=== PATIENT | male | born 1935 | race Caucasian/White ===

== ENCOUNTER → 2016-07-26 | Outpatient (CLI) | payer OTHER, MEDICARE ==
[2015-07-28 12:52] VITALS: BP 186/73; PULSE 55
[~2016-07-26] MED LIST: ALLO1TAB51 PO; AMLO10TA2 PO; ASPEC81 PO; BRIM0.2S OPB; CLON0.2T11 PO; CLR10 PO; METO50TA16 PO; PRAV20TA PO
[2016-07-26 13:16] VITALS: BP_SYST 187; BP_SYST 203; BP_DIAS 76; BP_DIAS 84; PULSE 56; TEMP 36.3; O2SAT 97
--- NOTE | 2016-07-26 16:48 | Radiation Oncology Follow-Up ---
Radiation Oncology Follow-Up Date of Visit Jul 26, 2016. Reason For Visit Annual follow-up Radiation Completion Date 12/23/13 Diagnosis (1) Squamous cell cancer of retromolar trigone Status: Resolved Onset Date: 09/23/2013 Stage: l Permanent Comment: Discomfort of the left retromalleolar area Ulcerated lesion biopsy positive for moderately differentiated squamous cell carcinoma Status post PET/CT with no metastatic disease Status post completion of definitive radiation therapy 12/23/2013 received 7000 cGy Last Edited By: Sarah Dallas on Jul 28, 2015 14:50 Interim History He is been doing well over this past year. He is noted no discomfort in his mouth. He states there is 1 area on the lateral side of the tongue has decreased sensation. He has noted no masses. There is no discomfort with opening and closing the mouth. He has noted no enlarging lymph nodes of the neck. His appetite is good and weight is stable. He was admitted for a 2 day stay in March 17 the flu. He also had high blood pressure and sinus difficulty at that time. These issues resolved without difficulty. He recently lost his after a 15 month illness. He did have a follow-up appointment with ENT one year ago and was found to have no recurrence. He was not given any further follow-up appointments. Allergies Coded Allergies: Clozapine (Verified Allergy, Unknown, unknown, 05/15/15) Haloperidol (Verified Allergy, Unknown, unknown, 05/15/15) Metoclopramide (Verified Allergy, Unknown, `, 05/15/15) Phenothiazines (Verified Allergy, Unknown, unkonwn, 05/15/15) Home Medications Scheduled Allopurinol (Allopurinol), 1 TAB PO DAILY Amlodipine Besylate (Norvasc), 1 TAB PO DAILY Aspirin Enteric Coated (Ecotrin Or Generic *), 81 MG PO DAILY Brimonidine Tartrate-Timolol M (Combigan), 1 DROP OPB BID Clonidine Hcl (Catapres), 0.2 MG PO BID Loratadine (Claritin), 10 MG PO DAILY Metoprolol Tartrate (Lopressor) (Lopressor), 50 MG PO BID Pravastatin (Pravachol ), 80 MG PO DAILY Review of Systems Gastrointestinal: Symptoms: WNL Oral: Symptoms: No Problems Respiratory: Symptoms: WNL Urinary: Symptoms: WNL Skin: Symptoms: No Problems Physical Exam Vital Signs Date Time Temp Pulse Resp B/P Pulse Ox O2 Delivery O2 Flow Rate FiO2 07/26/16 13:16 36.3 56 16 203/84 97 187/76 Pain: Pain Location: None Patient Pain Scale: 0 - 10 Initial Pain Intensity: 0.0 Fatigue: None General Appearance: no apparent distress Eyes: normal inspection, EOMI ENT: normal ENT inspection, hearing grossly normal, pharynx normal, + pertinent finding (mouth reveals no masses of the retromalleolar area on the left. There are no changes of buccal mucosa. There are no palpable masses of the retromalleolar area, floor the mouth, or tongue. There are no visible masses of the soft hard palate.) Neck: no adenopathy, thyroid normal Respiratory/Chest: lungs clear, no respiratory distress, no accessory muscle use Cardiovascular: regular rate, rhythm, no gallop, no murmur Extremities: no pedal edema Neurologic/Psychiatric: no motor/sensory deficits, alert, normal mood/affect Skin: warm/dry Lymphatic: no adenopathy Assessment & Plan Plan: He did have a TSH as part of his evaluation in April when he was to the hospital. This was normal. He had carotid Dopplers last year. There was no change in the percentage of stenosis. He'll not have to have this repeated of this year. We discussed his whitecoat syndrome. He checks his blood pressure at home on a regular basis. His blood pressure at home was 114/54 today. We asked him to return to our office in 1 year. Continue regular follow -up with Dr. Lopes. He may call our office if he has any questions or concerns in the interim. Total Time In Follow-Up I spent 20 minutes speaking to the patient and performing examination. I spent 15 minutes reviewing information completing this note. Copy To Hieu Lopes M.D.
== END | disposition home or self-care (01) ==
LOC: C.ONC 13:07
PROVIDERS: ATTEND Physician Assistant Medical
DX: Z08 Encounter for follow-up examination after completed treatment for malignant neoplasm (principal); Z92.3 Personal history of irradiation; Z85.89 Personal history of malignant neoplasm of other organs and systems

== ENCOUNTER → 2016-10-20 | Outpatient (CLI) | payer OTHER, MEDICARE ==
[2016-10-20 12:37] LABS: ALT/SGPT 24 U/L (12-78); AST/SGOT 16 U/L (15-37); BLOOD UREA NITROGEN 20 mg/dl (7-18); BUN/CREATININE RATIO 13.6 (10-20); CALCIUM 9.3 mg/dl (8.5-10.1); CARBON DIOXIDE 25 mmol/L (21-32); CHLORIDE 106 mmol/L (98-107); GLUCOSE 100 mg/dl (70-99); POTASSIUM 4.6 mmol/L (3.5-5.1); SODIUM 143 mmol/L (136-145)
[2016-10-20 12:42] LABS: ALB/GLOB RATIO 1.1 (0.9-2); ALKALINE PHOSPHATASE 62 U/L (45-117); CHOLESTEROL 153 mg/dl (0-200); CHOLESTEROL/HDL RATIO 4.6; HDL CHOLESTEROL 33 mg/dl; LDL CHOLESTEROL CALCULATED 79 mg/dl; TRIGLYCERIDES 204 mg/dl (0-150); VERY LOW DENSITY LIPOPROT CALC 41 mg/dl
== END | disposition home or self-care (01) ==
LOC: C.LABBFT 08:17
PROVIDERS: ATTEND Nurse Practitioner
DX: N40.0 Benign prostatic hyperplasia without lower urinary tract symptoms (principal); I10 Essential (primary) hypertension; E78.5 Hyperlipidemia, unspecified

== ENCOUNTER → 2017-04-23 | Outpatient (CLI) | payer OTHER, MEDICARE ==
[2017-04-23 12:18] LABS: BASO % 0.3 %; BASO ABS # 0.02 K/uL (0-0.2); COMPLETE YES; EOS % 4.6 %; HEMATOCRIT 38.9 % (42-52); IG% 0.3 %; LYMPH % 21.5 %; LYMPH ABS # 1.45 K/uL (1.2-3.4); MEAN CELL VOLUME 92.6 fL (80-100); MEAN CORPUSCULAR HEMOGLOBIN 32.9 pg (25-34); MEAN CORPUSCULAR HGB CONC 35.5 g/dl (32-36); MEAN PLATELET VOLUME 10.7 fL (7.4-10.4); MONO % 12.3 %; PLATELET COUNT 205 K/uL (130-400); WHITE BLOOD COUNT 6.74 K/uL (4.8-10.8)
[2017-04-23 12:28] LABS: ALT/SGPT 23 U/L (12-78); AST/SGOT 17 U/L (15-37); BLOOD UREA NITROGEN 21 mg/dl (7-18); BUN/CREATININE RATIO 12.5 (10-20); CALCIUM 9.3 mg/dl (8.5-10.1); CARBON DIOXIDE 28 mmol/L (21-32); CHLORIDE 105 mmol/L (98-107); CHOLESTEROL 150 mg/dl (0-200); CREATININE 1.71 mg/dl (0.60-1.40); GLUCOSE 110 mg/dl (70-99); POTASSIUM 4.3 mmol/L (3.5-5.1); SODIUM 139 mmol/L (136-145); TRIGLYCERIDES 203 mg/dl (0-150); URIC ACID 7.3 mg/dl (2.6-7.2); VERY LOW DENSITY LIPOPROT CALC 41 mg/dl
[2017-04-23 12:31] LABS: ALB/GLOB RATIO 1.1 (0.9-2); ALKALINE PHOSPHATASE 63 U/L (45-117); CHOLESTEROL/HDL RATIO 4.1; HDL CHOLESTEROL 37 mg/dl; LDL CHOLESTEROL CALCULATED 72 mg/dl
[2017-04-23 12:36] LABS: ESTIMATED AVERAGE GLUCOSE 120 mg/dl; HA1C FLAG Normal (Normal)
== END | disposition home or self-care (01) ==
LOC: C.LABBFT 08:30
PROVIDERS: ATTEND Physician Assistant Medical
DX: M10.9 Gout, unspecified (principal)

== ENCOUNTER → 2017-07-31 | Outpatient (CLI) | payer OTHER, MEDICARE ==
[2015-07-28 12:52] VITALS: BP 186/73; PULSE 55
[~2017-07-31] MED LIST changes: +MULT-506 PO; +NUTR-977 PO
[2017-07-31 13:19] VITALS: BP_SYST 205; BP_SYST 212; BP_DIAS 73; BP_DIAS 90; PULSE 56; TEMP 36.3; O2SAT 94
--- NOTE | 2017-07-31 16:03 | Radiation Oncology Follow-Up ---
Radiation Oncology Follow-Up Date of Visit Jul 31, 2017. Reason For Visit Annual follow-up Radiation Completion Date 12/23/13 Diagnosis (1) Squamous cell cancer of retromolar trigone Status: Resolved Onset Date: 09/23/2013 Stage: l Permanent Comment: Discomfort of the left retromalleolar area Ulcerated lesion biopsy positive for moderately differentiated squamous cell carcinoma Status post PET/CT with no metastatic disease Status post completion of definitive radiation therapy 12/23/2013 received 7000 cGy Last Edited By: Sarah Dallas on Jul 28, 2015 14:50 Interim History He has been doing well over the past year. He has noted no changes to the left lower gumline. He has noted no masses or tenderness. He has no issues with trismus. His sensation of taste is nearly normal. He is noticed no changes to the neck. His appetite is good and weight is stable. He is edentulous. Allergies Coded Allergies: Clozapine (Verified Allergy, Unknown, unknown, 05/15/15) Haloperidol (Verified Allergy, Unknown, unknown, 05/15/15) Metoclopramide (Verified Allergy, Unknown, `, 05/15/15) Phenothiazines (Verified Allergy, Unknown, unkonwn, 05/15/15) Home Medications Scheduled Allopurinol (Allopurinol), 1 TAB PO DAILY Amlodipine Besylate (Norvasc), 1 TAB PO DAILY Aspirin Enteric Coated (Ecotrin Or Generic *), 81 MG PO DAILY Brimonidine Tartrate-Timolol M (Combigan), 1 DROP OPB BID Clonidine Hcl (Catapres), 0.2 MG PO BID Enteral Nutrition Formula (Ensure Plus Vanilla), 1 CAN PO DAILY Loratadine (Claritin), 10 MG PO DAILY Metoprolol Tartrate (Lopressor) (Lopressor), 50 MG PO BID Multivitamin (Multivitamin), 1 TAB PO DAILY Pravastatin (Pravachol ), 80 MG PO DAILY Review of Systems Gastrointestinal: Symptoms: Constipation GI Comments: Constipation manageable at home; Oral: Symptoms: No Problems Respiratory: Symptoms: SOB With Exertion Other Respiratory: SOB w/exertion that he relates to his weight gain and COPD Urinary: Symptoms: WNL Skin: Symptoms: No Problems Physical Exam Vital Signs Date Time Temp Pulse Resp B/P (MAP) Pulse Ox O2 Delivery O2 Flow Rate FiO2 07/31/17 13:19 36.3 56 16 205/73 94 212/90 Fatigue: None General Appearance: no apparent distress Eyes: normal inspection, EOMI ENT: normal ENT inspection, hearing grossly normal, pharynx normal, + pertinent finding (Edentulous. Examination of the retromalleolar area on the left reveals no masses. There is no tenderness. There are no visible or palpable masses of the buccal mucosa, floor of the mouth, or tongue. There are no abnormalities seen of the soft or hard palate. Normal inspection of the posterior pharynx.) Neck: supple, no adenopathy, no JVD Respiratory/Chest: lungs clear, no respiratory distress, no accessory muscle use Cardiovascular: regular rate, rhythm, no gallop, no murmur Extremities: no pedal edema Neurologic/Psychiatric: no motor/sensory deficits, alert, normal mood/affect Skin: warm/dry Pain Management Patient Reports Pain: No Pain Location: None Patient Preferred Pain Scale: 0 - 10 Initial Pain Intensity: 0.0 Pain Management Plan He denies pain therefore requires no pain management. Laboratory Laboratory Results: were reviewed, and pertinent findings noted below Laboratory Comments: Test 07/31/17 14:03 Thyroid Stimulating Hormone (TSH) 1.370 uIu/ml (0.300-4.500) Pathology Pathology Results: not applicable Imaging Imaging Studies: not applicable Assessment & Plan Plan: Patient will be notified as the results of the TSH drawn today. We discussed follow-up carotid Dopplers. The last review was 2 years ago. These were ordered. He will continue regular follow-up with Dr. Lopes. We discussed the white coat syndrome once again. This occurred last year. He brought with him a recording of his blood pressure taken today at home. This was 128/84. We asked him to return to our office in 1 year. He may call if he has any questions or concerns in the interim. Total Time In Follow-Up I spent 20 minutes speaking to the patient in performing examination. I spent 15 minutes reviewing information and completing this note. Copy To Hieu Lopes M.D.
== END | disposition home or self-care (01) ==
LOC: C.ONC 13:10
PROVIDERS: ATTEND Physician Assistant Medical
DX: Z08 Encounter for follow-up examination after completed treatment for malignant neoplasm (principal); Z92.3 Personal history of irradiation; Z85.89 Personal history of malignant neoplasm of other organs and systems

== ENCOUNTER → 2017-08-02 | Outpatient (CLI) | payer OTHER, MEDICARE ==
--- NOTE | 2017-08-02 13:19 | DIAGNOSTIC IMAGING REPORT ---
CAROTID DOPPLER NECK ART CLINICAL HISTORY: 81 years-old Male presenting with ORAL CAVITY CA, atherosclerosis with history of bilateral internal carotid artery narrowing. TECHNIQUE: Real-time grayscale and color and spectral Doppler ultrasound imaging of the bilateral carotid arteries was performed. NASCET criteria was used in evaluating this study. COMPARISON: 08/02/2015. FINDINGS: Right: Common carotid: Atherosclerosis. Peak systolic velocity 70 cm/s. Internal carotid artery: Atherosclerosis of the proximal ICA. Peak systolic velocity 155 cm/s. Systolic ratio: 2.2. External carotid artery: Atherosclerosis. Peak systolic velocity 75 cm/s. Left: Common carotid: Atherosclerosis. Peak systolic velocity 80 cm/s. Internal carotid artery: Atherosclerosis of the proximal ICA. Peak systolic velocity 116 cm/s. Systolic ratio: 1.5. External carotid artery: Atherosclerosis. Peak systolic velocity 106 cm/s. Bilateral antegrade flow within the vertebral arteries. Reference ranges: Stenosis measurements are compared to reference velocity parameters. Primary parameters: ICA peak systolic velocity (PSV) < 125 cm/s normal or indicating < 50% stenosis; ICA PSV 125-230 cm/s equivalent to 50-69% stenosis; ICA PSV > 230 cm/s equivalent to greater than or equal to 70% stenosis. Additional parameters: ICA PSV to common carotid artery PSV ratio < 2 normal or < 50% stenosis; 2-4 equates to 50-69% stenosis, > 4 equates to greater than or equal to 70% stenosis. Normal ICA end-diastolic velocity less than 40. Blood pressure Brachial: Right: 211/86 mmHg, Left: 213/93 mmHg. IMPRESSION: 1. Severe systemic hypertension. 2. Atherosclerosis with 50-69% stenosis of the proximal right ICA. 3. Atherosclerosis with less than 50% stenosis of the proximal left ICA. The report will be called/faxed according to standard departmental protocol. Electronically signed by: Christophe Sarmiento M.D. 08/02/2017 1:18 PM Dictated Date/Time: 08/02/2017 1:12 PM
== END | disposition home or self-care (01) ==
LOC: C.ULTR 12:09
PROVIDERS: ATTEND Physician Assistant Medical
DX: C06.2 Malignant neoplasm of retromolar area (principal); I10 Essential (primary) hypertension; I65.23 Occlusion and stenosis of bilateral carotid arteries

== ENCOUNTER → 2017-08-29 | Outpatient (CLI) | payer OTHER, MEDICARE ==
[2017-08-29 15:46] LABS: BASO % 0.3 %; BASO ABS # 0.02 K/uL (0-0.2); EOS % 4.5 %; EOS ABS # 0.31 K/uL (0-0.5); HEMATOCRIT 41.4 % (42-52); HEMOGLOBIN 14.5 g/dL (14.0-18.0); IG# 0.01 K/uL (0.00-0.02); LYMPH % 27.7 %; LYMPH ABS # 1.89 K/uL (1.2-3.4); MEAN CELL VOLUME 91.2 fL (80-100); MEAN CORPUSCULAR HEMOGLOBIN 31.9 pg (25-34); MEAN PLATELET VOLUME 10.4 fL (7.4-10.4); MONO % 14.2 %; MONO ABS # 0.97 K/uL (0.11-0.59); NEUT % 53.2 %; NEUT ABS # 3.63 K/uL (1.4-6.5); PLATELET COUNT 223 K/uL (130-400); WHITE BLOOD COUNT 6.83 K/uL (4.8-10.8)
[2017-08-29 16:04] LABS: ALT/SGPT 22 U/L (12-78); AST/SGOT 18 U/L (15-37); BLOOD UREA NITROGEN 18 mg/dl (7-18); CALCIUM 9.4 mg/dl (8.5-10.1); CARBON DIOXIDE 29 mmol/L (21-32); CREATININE 1.44 mg/dl (0.60-1.40); GLUCOSE 81 mg/dl (70-99); POTASSIUM 4.1 mmol/L (3.5-5.1); SODIUM 140 mmol/L (136-145)
[2017-08-29 16:15] LABS: ALKALINE PHOSPHATASE 69 U/L (45-117); TOTAL PROTEIN 7.3 gm/dl (6.4-8.2)
--- NOTE | 2017-09-07 06:50 | CODING QUERY NO DIAGNOSIS ---
: 1935 TREATMENT RENDERED WITHOUT A DIAGNOSIS To promote full compliance with coding requirements relating to patient care, physician participation is requested in all cases of curriculum and assessment director uncertainty. Please assist us with providing a diagnosis/symptom for the test(s) below: A diagnosis/symptom was not documented on your Order. A valid diagnosis/symptom is required to bill all insurances. Please remember that we are unable to code a diagnosis of rule out, probable, possible, questionable, or suspected. Tests that require a diagnosis: DOS: 08/29/17 * CBC WITH AUTO DIFFERENTIAL DIAGNOSIS: * COMPREHENSIVE METABOLIC PANEL DIAGNOSIS: * THYROID STIMULATING HORMONE DIAGNOSIS: * LDH DIAGNOSIS: Provider Signature: Date: Thank you Jodie Nicholson Health Information Management Once completed, please kindly fax back to [phone] For questions please call [phone]
== END | disposition home or self-care (01) ==
LOC: C.LAB 14:31
PROVIDERS: ATTEND Nurse Practitioner Family
DX: Z85.818 Personal history of malignant neoplasm of other sites of lip, oral cavity, and pharynx (principal); Z92.3 Personal history of irradiation

== ENCOUNTER → 2017-11-30 | Outpatient (CLI) | payer OTHER, MEDICARE ==
--- NOTE | 2017-11-30 18:49 | DIAGNOSTIC IMAGING REPORT ---
LUMBAR SPINE 5 VIEWS HISTORY: M54.5 Low back pain [id number] COMPARISON: None. FINDINGS: There is no fracture. No subluxation. Mild dextroscoliosis which could be positional. Moderate to severe facet degenerative changes within the lower lumbar spine. L5 appears to be a transitional vertebra. Mild disc space narrowing at L1-L2, L2-L3, and L4-L5. Small endplate osteophytes throughout the lumbar spine. IMPRESSION: No fracture or subluxation within the lumbar spine. Degenerative changes as described above. Electronically signed by: Hebert Dickson M.D. 11/30/2017 6:48 PM Dictated Date/Time: 11/30/2017 6:45 PM
== END | disposition home or self-care (01) ==
LOC: C.RAD 16:11
PROVIDERS: ATTEND Internal Medicine
DX: M54.5 Low back pain (principal)

== ENCOUNTER 2017-12-14 21:17 | Inpatient (IN) | payer OTHER, MEDICARE ==
[~2017-12-14] VITALS: Ht 167.6 cm; Wt 68.8 kg
[2017-12-14] MEDS ORDERED: SODIUM CHLORIDE 0.9% 1000ML 1,000 ML IV STA (22:01)
[2017-12-14] MEDS ORDERED: SODIUM CHLORIDE 0.9% 1000ML 1,000 ML IV ONE (22:01)
[2017-12-14] MEDS ORDERED: CLONIDINE HCL 0.1 MG TAB PO ONE (22:15)
--- NOTE | 2017-12-14 22:19 | DIAGNOSTIC IMAGING REPORT ---
CHEST ONE VIEW PORTABLE CLINICAL HISTORY: CHEST PAIN dyspnea COMPARISON STUDY: 04/08/2016 FINDINGS: Minimal chronic atelectasis left base. Lungs otherwise are clear. No significant cardiac enlargement. IMPRESSION: Chronic change. No acute process. The above report was generated using voice recognition software. It may contain grammatical, syntax or spelling errors. Electronically signed by: Jaylan Clay M.D. 12/14/2017 10:18 PM Dictated Date/Time: 12/14/2017 10:17 PM
--- NOTE | 2017-12-14 22:28 | EMERGENCY ROOM VISIT NOTE ---
History First contact with patient: 21:56 Chief Complaint: FALL Stated Complaint: FALL, AMS History of Present Illness History is obtained from the patient as well as his family members who are at the bedside the patient is a 82 year old male who presents to the Emergency Room with complaints of altered mental status. He saw his doctor yesterday has been having chronic issues with low back pain was started on a pain medication as well as a muscle relaxer. His family said he slept in bed all day yesterday and today when they found him. He had not taken any of his medication he was sleepy and when he fell fell over and hit his head as well. Upon arrival he appears in no distress he is alert to person and place but not date that is atypical for him he does follow commands and has not nonslurred speech. He denies chest pain, shortness breath, fever or chills, bowel or bladder problems , recent illness, headache. Source of History: patient, family Review of Systems As above. All other systems reviewed were negative unless otherwise stated in history. At least 10 were reviewed Past Medical/Surgical History Medical Problems: (1) Benign prostatic hypertrophy (2) COPD exacerbation (3) Encephalopathy acute (4) Glaucoma (5) Hypercholesterolemia (6) Hypertension (7) Peripheral vascular disease (8) Squamous cell cancer of retromolar trigone (9) Troponin I above reference range Surgical Problems: (1) H/O aorto-femoral bypass (2) H/O transurethral resection of prostate (3) Status post cataract surgery Old medical records were reviewed. Nurse's notes were reviewed and I agree with. Social History Smoking Status: Never Smoker Drug Use: none Marital Status: Housing Status: lives with family Occupation Status: retired Current/Historical Medications Scheduled Allopurinol (Allopurinol), 1 TAB PO DAILY Amlodipine Besylate (Norvasc), 1 TAB PO DAILY Aspirin Enteric Coated (Ecotrin Or Generic *), 81 MG PO DAILY Brimonidine Tartrate-Timolol M (Combigan), 1 DROP OPB BID Clonidine Hcl (Catapres), 0.2 MG PO BID Enteral Nutrition Formula (Ensure Plus Vanilla), 1 CAN PO DAILY Loratadine (Claritin), 10 MG PO DAILY Metoprolol Tartrate (Lopressor) (Lopressor), 50 MG PO BID Multivitamin (Multivitamin), 1 TAB PO DAILY Pravastatin (Pravachol ), 80 MG PO DAILY Physical Exam Vital Signs Date Time Temp Pulse Resp B/P (MAP) Pulse Ox O2 Delivery O2 Flow Rate FiO2 12/14/17 23:46 76 18 202/90 93 Room Air 12/14/17 23:19 82 18 213/91 93 Room Air 12/14/17 22:26 82 18 208/126 92 Room Air 12/14/17 21:31 91 12/14/17 21:17 36.9 88 18 278/124 95 Room Air Physical Exam General: Well developed well nourished older male who is awake and alert and oriented 2 in no acute distress, breathing comfortably on room air. Normal speech HEENT: Normal cephalic atraumatic with exception of a small abrasion to the central scalp. Pupils are equal round and reactive to light. Extraocular movements are intact. Oropharynx is pink with moist mucous membranes. No swelling of the mouth lips or tongue. Neck: Supple with a midline trachea. No meningeal signs or stiffness, no JVD or bruits. No Stridor. Chest: Clear to auscultation bilaterally. No wheezes or rhonchi. No increased work of breathing. Heart: Regular rate and rhythm without murmurs or gallops. Abdomen: Soft nontender, nondistended without rebound guarding or rigidity. Extremities: No cyanosis clubbing or edema. No calf tenderness or assymetry Spine/Back. Non tender to palpation. No CVA tenderness Skin: Good turgor without rashes. Neurologic exam: Cranial nerves two through 12 are intact. Motor and sensation are intact and symmetrical throughout. Medical Decision & Procedures Laboratory Results 12/14/17 21:30 Red Blood Count 4.77, Mean Corpuscular Volume 91.2, Mean Corpuscular Hemoglobin 32.5, Mean Corpuscular Hemoglobin Concent 35.6, Mean Platelet Volume 10.7, Neutrophils (%) (Auto) 69.8, Lymphocytes (%) (Auto) 16.1, Monocytes (%) (Auto) 11.2, Eosinophils (%) (Auto) 2.5, Basophils (%) (Auto) 0.1, Neutrophils # (Auto ) 7.61, Lymphocytes # (Auto) 1.75, Monocytes # (Auto) 1.22, Eosinophils # (Auto ) 0.27, Basophils # (Auto) 0.01 12/14/17 21:30 Test 12/14/17 21:30 12/14/17 21:44 12/14/17 22:00 12/14/17 22:37 White Blood Count 10.89 K/uL (4.8-10.8) Red Blood Count 4.77 M/uL (4.7-6.1) Hemoglobin 15.5 g/dL (14.0-18.0) Hematocrit 43.5 % (42-52) Mean Corpuscular Volume 91.2 fL (80-100) Mean Corpuscular Hemoglobin 32.5 pg (25-34) Mean Corpuscular Hemoglobin Concent 35.6 g/dl (32-36) Platelet Count 263 K/uL (130-400) Mean Platelet Volume 10.7 fL (7.4-10.4) Neutrophils (%) (Auto) 69.8 % Lymphocytes (%) (Auto) 16.1 % Monocytes (%) (Auto) 11.2 % Eosinophils (%) (Auto) 2.5 % Basophils (%) (Auto) 0.1 % Neutrophils # (Auto) 7.61 K/uL (1.4-6.5) Lymphocytes # (Auto) 1.75 K/uL (1.2-3.4) Monocytes # (Auto) 1.22 K/uL (0.11-0.59) Eosinophils # (Auto) 0.27 K/uL (0-0.5) Basophils # (Auto) 0.01 K/uL (0-0.2) RDW Standard Deviation 43.3 fL (36.4-46.3) RDW Coefficient of Variation 13.1 % (11.5-14.5) Immature Granulocyte % (Auto) 0.3 % Immature Granulocyte # (Auto) 0.03 K/uL (0.00-0.02) Prothrombin Time 10.5 SECONDS (9.0-12.0) Prothromb Time International Ratio 1.0 (0.9-1.1) Activated Partial Thromboplast Time 25.0 SECONDS (21.0-31.0) Partial Thromboplastin Ratio 1.0 Anion Gap 10.0 mmol/L (3-11) Est Creatinine Clear Calc Drug Dose 34.6 ml/min Estimated GFR () 54.5 Estimated GFR (Non- 47.0 BUN/Creatinine Ratio 10.9 (10-20) Calcium Level 9.8 mg/dl (8.5-10.1) Total Bilirubin 0.8 mg/dl (0.2-1) Direct Bilirubin 0.2 mg/dl (0-0.2) Aspartate Amino Transf (AST/SGOT) 20 U/L (15-37) Alanine Aminotransferase (ALT/SGPT) 21 U/L (12-78) Alkaline Phosphatase 67 U/L (45-117) Total Creatine Kinase 157 U/L (39-308) Creatine Kinase MB 1.6 ng/ml (0.5-3.6) Creatine Kinase MB Ratio 1.0 (0-3.0) Total Protein 7.8 gm/dl (6.4-8.2) Albumin 4.1 gm/dl (3.4-5.0) Lipase 177 U/L (73-393) Thyroid Stimulating Hormone (TSH) 0.606 uIu/ml (0.300-4.500) Urine Color YELLOW Urine Appearance CLEAR (CLEAR) Urine pH 6.5 (4.5-7.5) Urine Specific [place] 1.011 (1.000-1.030) Urine Protein 2+ (NEG) Urine Glucose (UA) NEG (NEG) Urine Ketones TRACE (NEG) Urine Occult Blood NEG (NEG) Urine Nitrite NEG (NEG) Urine Bilirubin NEG (NEG) Urine Urobilinogen NEG (NEG) Urine Leukocyte Esterase NEG (NEG) Urine WBC (Auto) 1-5 /hpf (0-5) Urine RBC (Auto) 0-4 /hpf (0-4) Urine Hyaline Casts (Auto) 0 /lpf (0-5) Urine Epithelial Cells (Auto) 5-10 /lpf (0-5) Urine Bacteria (Auto) NEG (NEG) Urine Opiates Screen NEG (NEG) Urine Methadone, Qualitative NEG (NEG) Urine Barbiturates NEG (NEG) Urine Phencyclidine (PCP) Level NEG (NEG) Ur Amphetamine/Methamphetamine NEG (NEG) MDMA (Ecstasy) Screen NEG (NEG) Urine Benzodiazepines Screen NEG (NEG) Urine Cocaine Metabolite NEG (NEG) Urine Marijuana (THC) NEG (NEG) Bedside Troponin I 0.030 ng/ml (0-0.045) Test 12/15/17 00:36 Medications Administered Medications (Trade) Dose Ordered Sig/Sonia Route Start Time Stop Time Status Last Admin Dose Admin Sodium Chloride 1,000 ml @ 999 mls/hr Q1H1M STAT IV 12/14/17 22:01 12/14/17 23:01 DC 12/14/17 22:26 999 MLS/HR Sodium Chloride 1,000 ml @ 150 mls/hr Q6H40M ONCE IV 12/14/17 22:01 12/15/17 04:40 12/14/17 23:46 150 MLS/HR Clonidine HCl (Catapres Tab) 0.2 mg NOW ONCE PO 12/14/17 22:15 12/14/17 22:16 DC 12/14/17 22:25 0.2 MG Labetalol HCl (Normodyne IV) 10 mg ONE STAT IV 12/14/17 23:34 12/14/17 23:36 DC 12/14/17 23:43 10 MG Medical Decision Differential diagnosis includes: Intracranial hemorrhage, hypertensive emergency /urgency, electrolyte or metabolic abnormality, medication side effect, cardiac disease, infection this patient comes in as described above he has been confused after taking This patient comes in as described above. He started new medications yesterday and has been laying around and he fell. his blood pressure is very high. he is on multiple blood pressure medications which he did not take today. Besides not knowing the date, he answers questions appropriately and has a nonfocal neurologic exam. IV access was established and blood work was obtained I reviewed his old records he apparently is on clonidine 0.2 mg twice daily, I gave him this as when I saw him his blood pressure was still elevated at 230/ 100. This was his normal regular doses and he said he did not take it this evening family confirms this. EKG was obtained that does not show any acute ischemic changes or ectopy. Chest x-ray head CT and multiple blood testing was obtained as well. He was reassessed frequently. He has no white count or fever to suggest infection. No acute electrolyte or metabolic abnormalities. CAT scan of his head is unremarkable. CAT scan lumbar spine shows a chronic disc. With the clonidine his blood pressure came down to 170 however when he started talking to people and got excited he is prone pressure came back up he was given additional 10 labetalol IV. Everything else looks good on his blood work so far do think this most likely is related to his medications that he took yesterday and this caused him not to take his medications today because his blood pressure get high. I do think he needs to be observed/admitted for further treatment and evaluation. Medication Reconcilliation Current Medication List: was personally reviewed by me Blood Pressure Screening Patient's blood pressure: Elevated blood pressure Blood pressure disposition: Referred to PCP Impression Primary Impression: Altered mental status Additional Impression: HTN (hypertension) Departure Information Referrals Hieu Lopes M.D. (PCP) Patient Instructions My [facility] Problem Qualifiers
[2017-12-14 22:52] LABS: BASO % 0.1 %; BASO ABS # 0.01 K/uL (0-0.2); EOS % 2.5 %; EOS ABS # 0.27 K/uL (0-0.5); HEMATOCRIT 43.5 % (42-52); HEMOGLOBIN 15.5 g/dL (14.0-18.0); IG# 0.03 K/uL (0.00-0.02); LYMPH % 16.1 %; LYMPH ABS # 1.75 K/uL (1.2-3.4); MEAN CELL VOLUME 91.2 fL (80-100); MEAN CORPUSCULAR HEMOGLOBIN 32.5 pg (25-34); MEAN CORPUSCULAR HGB CONC 35.6 g/dl (32-36); MEAN PLATELET VOLUME 10.7 fL (7.4-10.4); MONO % 11.2 %; MONO ABS # 1.22 K/uL (0.11-0.59); NEUT % 69.8 %; NEUT ABS # 7.61 K/uL (1.4-6.5); PLATELET COUNT 263 K/uL (130-400); RED CELL DISTRIBUTION WIDTH CV 13.1 % (11.5-14.5); RED CELL DISTRIBUTION WIDTH SD 43.3 fL (36.4-46.3); WHITE BLOOD COUNT 10.89 K/uL (4.8-10.8)
--- NOTE | 2017-12-14 23:04 | DIAGNOSTIC IMAGING REPORT ---
HEAD WITHOUT CONTRAST (CT) CT DOSE: 1074.96 mGy.cm HISTORY: Mental status change. Trauma. eval for altered loc TECHNIQUE: Multiaxial CT images of the head were performed without the use of intravenous contrast. A dose lowering technique was utilized adhering to the principles of ALARA. Comparison: 05/15/2015 Findings: The paranasal sinuses and mastoid air cells are clear. The calvarium and skull base are intact. The ventricles and sulci are within normal limits. There is no mass, hematoma, midline shift, or acute infarct. Impression: No acute intracranial abnormality. The above report was generated using voice recognition software. It may contain grammatical, syntax or spelling errors. Electronically signed by: Jaylan Clay M.D. 12/14/2017 11:01 PM Dictated Date/Time: 12/14/2017 11:00 PM
[2017-12-14 23:11] LABS: ALBUMIN 4.1 gm/dl (3.4-5.0); CALCIUM 9.8 mg/dl (8.5-10.1); CKMB 1.6 ng/ml (0.5-3.6); CREATININE 1.37 mg/dl (0.60-1.40); POTASSIUM 3.8 mmol/L (3.5-5.1); TOTAL PROTEIN 7.8 gm/dl (6.4-8.2)
[2017-12-14] MEDS ORDERED: LABETALOL HCL IV 5 MG/ML 20ML IV STA (23:34)
[2017-12-15] VITALS (9 sets, daily range): BP systolic 124–209; BP diastolic 66–87; PULSE 66–98; TEMP 36.7–37.4; O2SAT 90–98; Ht 167.6 cm; Wt 68.8 kg
[2017-12-15] MEDS ORDERED: MAGNESIUM HYDROXIDE SUSP 30 ML UDC PO PRN (00:45)
[2017-12-15] MEDS ORDERED: POLYETHYLENE (MIRALAX) 17 GM PACK PO PRN (00:45)
[2017-12-15] MEDS ORDERED: ACETAMINOPHEN 325 MG TAB PO PRN (00:45)
[2017-12-15] MEDS ORDERED: ALUMINUM/MAGNESIUM/SIMETH (MAALOX MAX) 30 ML UDC PO PRN (00:45)
[2017-12-15] MEDS ORDERED: ONDANSETRON INJ 2 MG/ML 2 ML VIAL IV PRN (00:45)
[2017-12-15] MEDS ORDERED: AMLODIPINE BESYLATE 5 MG TAB PO STA (01:06)
--- NOTE | 2017-12-15 01:07 | History and Physical ---
History & Physical Date & Time of Service: Dec 15, 2017 at 00:12 Chief Complaint: Fall, Ams Primary Care Physician: Hieu Lopes M.D. History of Present Illness Source: patient, family, caregiver, parent, partner, clinic records, hospital records 82M with a PMHx HTN, HPL, diastolic dysfunction, gout, BPH, PAD s/p? femoral artery bypass presents with AMS x 1 days. His 3 daughters are present in the room and provide the majority of the history. Pt was seen by PCP one day prior and given a prescription of Flexeril and Mobic for back pain. Patient was stated to be acting abnormal by his sister, his daughters confirmed this when they saw him earlier this evening. One daughter stated that when he tried to sit back on the bed he missed and hit his head on a metal bed frame. Daughters agree that the patient is behaving closer to his baseline since coming to the ER. The patient and daughters are unable to state what meds he took today and how many meds he took. Daughters state that the speech was garbled and altered when they saw him. In the ER patient is a somewhere between a poor to slightly effective historian. He denies taking additional pills. He denies being in any pain or having any issues whatsoever. Per daughters, patient is "very with it" and able to complete all ADLs on his own. He also lives by himself. Past Medical/Surgical History 1) Hypertension 2) Hyperlipidemia 3) Peripheral arterial disease - history of femoral bypass 4) COPD 5) Gout 6) Glaucoma 7) BPH 8) Troponin elevation deemed due to demand ischemia 2016 9) Grade I diastolic dysfunction - echo 2016 Social History Smoking Status: Never Smoker Drug Use: none Marital Status: Occupational Status: retired Immunizations History of Influenza Vaccine: Yes History of Tetanus Vaccine?: Yes History of Pneumococcal: No History of Hepatitis B Vaccine: No Allergies Coded Allergies: Clozapine (Verified Allergy, Unknown, unknown, 05/15/15) Haloperidol (Verified Allergy, Unknown, unknown, 05/15/15) Metoclopramide (Verified Allergy, Unknown, `, 05/15/15) Phenothiazines (Verified Allergy, Unknown, unkonwn, 05/15/15) Home Medications Scheduled Allopurinol (Allopurinol), 100 MG PO DAILY Amlodipine Besylate (Norvasc), 1 TAB PO DAILY Aspirin (Aspirin Ec), 81 MG PO DAILY Aspirin Enteric Coated (Ecotrin Or Generic *), 81 MG PO DAILY Brimonidine Tartrate-Timolol M (Combigan), 1 DROP OPB BID Clonidine Hcl (Catapres), 0.1 MG PO BID Enteral Nutrition Formula (Ensure Plus Vanilla), 1 CAN PO DAILY Loratadine (Claritin), 10 MG PO DAILY Meloxicam (Mobic), 15 MG PO DAILY Metoprolol Tartrate (Lopressor) (Lopressor), 50 MG PO BID Metoprolol Tartrate (Lopressor) (Lopressor), 25 MG PO BID Multivitamin (Multivitamin), 1 TAB PO DAILY Pravastatin (Pravachol ), 80 MG PO HS Scheduled PRN Baclofen (Lioresal), 10-20 MG PO TID PRN for CRAMPING Colchicine (Colcrys), 0.6 MG PO DAILY PRN for GOUT FLARE Review of Systems ROS unreliable due to pt's baseline medical condition. Constitutional: No fever, No chills, No weight loss Eyes: No worsening of vision ENT: No hearing loss Respiratory: No cough Physical Exam Vital Signs Date Time Temp Pulse Resp B/P (MAP) Pulse Ox O2 Delivery O2 Flow Rate FiO2 12/14/17 23:46 76 18 202/90 93 Room Air 12/14/17 23:19 82 18 213/91 93 Room Air 12/14/17 22:26 82 18 208/126 92 Room Air 12/14/17 21:31 91 12/14/17 21:17 36.9 88 18 278/124 95 Room Air General Appearance: WD/WN, no apparent distress Head: normocephalic, + pertinent finding (laceration on top of head) Eyes: normal inspection, PERRL, EOMI ENT: normal ENT inspection, hearing grossly normal, TMs normal Neck: supple, no adenopathy Respiratory/Chest: chest non-tender, lungs clear, normal breath sounds, no respiratory distress, no accessory muscle use Cardiovascular: regular rate, rhythm, no edema, no gallop, no JVD, no murmur, normal peripheral pulses Abdomen/GI: normal bowel sounds, non tender, soft, no organomegaly, no pulsatile mass, normal rectal exam, occult blood negative Genitourinary - Male: normal male genitalia, normal phallus, normal testicles, no genital lesions Back: normal inspection, no CVA tenderness, no muscle spasm, normal range of motion Extremities/Musculoskelatal: normal inspection, no calf tenderness, normal capillary refill, no pedal edema, normal range of motion 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, no motor/sensory deficits, alert, normal mood/affect, normal reflexes, + pertinent finding (not oriented to month , day or year but oriented to place ([facility]), person, knows city, knows daughters names, knows PCP's name, knows his PMHx) Skin: normal color, warm/dry, no rash Diagnostics Laboratory Results Results Past 24 Hours Test 12/14/17 21:30 12/14/17 21:44 12/14/17 22:00 12/14/17 22:37 Range/Units White Blood Count 10.89 4.8-10.8 K/uL Red Blood Count 4.77 4.7-6.1 M/uL Hemoglobin 15.5 14.0-18.0 g/dL Hematocrit 43.5 42-52 % Mean Corpuscular Volume 91.2 80-100 fL Mean Corpuscular Hemoglobin 32.5 25-34 pg Mean Corpuscular Hemoglobin Concent 35.6 32-36 g/dl Platelet Count 263 130-400 K/uL Mean Platelet Volume 10.7 7.4-10.4 fL Neutrophils (%) (Auto) 69.8 % Lymphocytes (%) (Auto) 16.1 % Monocytes (%) (Auto) 11.2 % Eosinophils (%) (Auto) 2.5 % Basophils (%) (Auto) 0.1 % Neutrophils # (Auto) 7.61 1.4-6.5 K/uL Lymphocytes # (Auto) 1.75 1.2-3.4 K/uL Monocytes # (Auto) 1.22 0.11-0.59 K/uL Eosinophils # (Auto) 0.27 0-0.5 K/uL Basophils # (Auto) 0.01 0-0.2 K/uL RDW Standard Deviation 43.3 36.4-46.3 fL RDW Coefficient of Variation 13.1 11.5-14.5 % Immature Granulocyte % (Auto) 0.3 % Immature Granulocyte # (Auto) 0.03 0.00-0.02 K/uL Prothrombin Time 10.5 9.0-12.0 SECONDS Prothromb Time International Ratio 1.0 0.9-1.1 Activated Partial Thromboplast Time 25.0 21.0-31.0 SECONDS Partial Thromboplastin Ratio 1.0 Sodium Level 140 136-145 mmol/L Potassium Level 3.8 3.5-5.1 mmol/L Chloride Level 107 98-107 mmol/L Carbon Dioxide Level 23 21-32 mmol/L Anion Gap 10.0 3-11 mmol/L Blood Urea Nitrogen 15 7-18 mg/dl Creatinine 1.37 0.60-1.40 mg/dl Est Creatinine Clear Calc Drug Dose 34.6 ml/min Estimated GFR () 54.5 Estimated GFR (Non- 47.0 BUN/Creatinine Ratio 10.9 10-20 Random Glucose 120 70-99 mg/dl Calcium Level 9.8 8.5-10.1 mg/dl Total Bilirubin 0.8 0.2-1 mg/dl Direct Bilirubin 0.2 0-0.2 mg/dl Aspartate Amino Transf (AST/SGOT) 20 15-37 U/L Alanine Aminotransferase (ALT/SGPT) 21 12-78 U/L Alkaline Phosphatase 67 45-117 U/L Total Creatine Kinase 157 39-308 U/L Creatine Kinase MB 1.6 0.5-3.6 ng/ml Creatine Kinase MB Ratio 1.0 0-3.0 Total Protein 7.8 6.4-8.2 gm/dl Albumin 4.1 3.4-5.0 gm/dl Lipase 177 73-393 U/L Thyroid Stimulating Hormone (TSH) 0.606 0.300-4.500 uIu/ml Urine Color YELLOW Urine Appearance CLEAR CLEAR Urine pH 6.5 4.5-7.5 Urine Specific [place] 1.011 1.000-1.030 Urine Protein 2+ NEG Urine Glucose (UA) NEG NEG Urine Ketones TRACE NEG Urine Occult Blood NEG NEG Urine Nitrite NEG NEG Urine Bilirubin NEG NEG Urine Urobilinogen NEG NEG Urine Leukocyte Esterase NEG NEG Urine WBC (Auto) 1-5 0-5 /hpf Urine RBC (Auto) 0-4 0-4 /hpf Urine Hyaline Casts (Auto) 0 0-5 /lpf Urine Epithelial Cells (Auto) 5-10 0-5 /lpf Urine Bacteria (Auto) NEG NEG Bedside Troponin I 0.030 0-0.045 ng/ml Test 12/14/17 23:30 Range/Units Microbiology Results 12/14/17 Blood Culture, Received Pending 12/14/17 Blood Culture, Received Pending 12/14/17 Urine Culture, Received Pending Diagnostic Radiology HEAD WITHOUT CONTRAST (CT) CT DOSE: 1074.96 mGy.cm HISTORY: Mental status change. Trauma. eval for altered loc TECHNIQUE: Multiaxial CT images of the head were performed without the use of intravenous contrast. A dose lowering technique was utilized adhering to the principles of ALARA. Comparison: 05/15/2015 Findings: The paranasal sinuses and mastoid air cells are clear. The calvarium and skull base are intact. The ventricles and sulci are within normal limits. There is no mass, hematoma, midline shift, or acute infarct. Impression: No acute intracranial abnormality. Impression Assessment and Plan 82M with a PMHx of PAD presents with encephalopathy of 1 day secondary to HTN vs drug induced. CVA cannot be excluded either at this point. Hypertensive Encephalopathy vs Drug Induced side effect (recent rx of flexeril "10mg daily 1-2 up to 3 times daily per Chart Review") vs CVA Per sisters, patient has improved since coming to the ER - received clonidine and Metoprolol. Urine tox screen normal, cannot exclude the possibility that the patient took one too many flexeril. (daughters did not obtain count of meds) Previous Echo from 2016: * The left ventricle is hyperdynamic. * No regional wall motion abnormalities noted. * Ejection Fraction = >70 %. * There is mild concentric left ventricular hypertrophy. * Grade I diastolic dysfunction, (abnormal relaxation pattern). Will attempt to blood control pressures with regimen below. Will order MRI Brain w/o contrast, repeat echo and carotid dopplers. HTN BPs slowly improving after admission. Will give Norvasc dose now. c/w Clonidine 0.2mg BID c/w 10mg Norvasc daily. c/w Lopressor 50mg BID Unsure why pt is not on diuretic, if BPs aren't controlled consider adding on. Elevated White Count No obvious source of infection. Back Pain, longstanding Follow up CT spine. HLD c/w Pravastatin daily Gout Prophylaxis c/w Allopurinol daily. PAD s/p ?femoral artery bypass & thrombolysis of an external iliac occlusion in 2009. c/w ASA daily Glaucoma : c/w home drops DVT Proph: SCDs Diet: Regular Dispo: obs, tele, Lives by himself, baseline is normal, good family support. FULL CODE Resident Physician Supervision Note: I was present with Dr. France during the history and exam. I discussed the case with the resident and agree with the findings and plan as documented in the note. Any exceptions or clarifications are listed here: 82 y/o M Hx HTN, HPL, COPD, diastolic dysfunction, gout, BPH, PAD - presenting with confusion over the past day. SBP was noted to be over 220 on arrival to the ER - no complaints of CP, SOB, fevers. OA AAO x 1 S1,2 R CTAB NT, ND Confusion without focal deficits present - memory is impaired P: Medical compliance cannot be gauged so that differential includes med reaction/ polypharmacy and HTN encephalopathy. Leukocytosis is present on initial labs, however, there is no discernible source of infection. We will provide IVF, cont prescribed meds at current doses and focus on HTN management - his mental status can be reassessed when normalized. He is due for an MRI and carotid US, although we do not strongly suspect ischemia. Cont Statin, Allopurinol and ASA Documented By: Derick Causey Resuscitation Status VTE Prophylaxis Will order VTE Prophylaxis: Yes Resident Involvement: Resident Care Provided Care Provided: Adult Hospital Medicine
[2017-12-15] MEDS ORDERED: IV FLUIDS COMPLETED PRN (01:30)
[2017-12-15] MEDS ORDERED: ASPI81TA28 PO (01:47)
[2017-12-15] MEDS ORDERED: BACL10TA PO (01:48)
[2017-12-15] MEDS ORDERED: CLC6 PO (01:51)
[2017-12-15] MEDS ORDERED: MELO15TA10 PO (01:53)
[2017-12-15] MEDS ORDERED: METO25TA56 PO (01:54)
[2017-12-15] MEDS ORDERED: PERFLUTREN LIPID MICROSPHERE (DEFINITY) IV ONE (07:02)
--- NOTE | 2017-12-15 07:02 | DIAGNOSTIC IMAGING REPORT ---
CT SCAN OF THE LUMBAR SPINE WITHOUT IV CONTRAST CLINICAL HISTORY: Low back pain. COMPARISON STUDY: Radiographs of lumbar spine dated 11/30/2017. TECHNIQUE: CT scan of the lumbar spine is performed from the lower thoracic spine to the sacrum. Images are reviewed in the axial, sagittal, and coronal planes. IV contrast was not administered for this examination. A dose lowering technique was utilized adhering to the principles of ALARA. CT DOSE: 689.15 mGy.cm FINDINGS: The skeletal structures are osteopenic. There is no evidence of fracture or malalignment involving the lumbar spine. Vertebral body height and alignment are maintained. The transverse and spinous processes are intact. Small anterior osteophytes are seen throughout. There is no spondylolysis. No lytic or blastic lesion is seen. Moderate facet arthropathy is seen in the lower lumbar region. There is a hemitransitional left lumbosacral segment. There is moderate disc space narrowing seen at L1-L2. Mild to moderate disc space narrowing seen at L2-L3 and L4-L5. Only mild disc space narrowing is seen at the remaining lumbar levels. Multilevel vacuum phenomenon is noted. A broad-based disc bulge versus herniation is noted at L4-L5. Large posterior disc bulges are also seen at L2-L3 and L3-L4. There is likely multilevel acquired compromise of the central canal at these levels as well as neural foraminal stenosis. The visualized sacrum and bony pelvis appear intact. Sclerotic change is noted in the sacroiliac joints. The paraspinous soft tissues are normal as imaged. There is advanced atherosclerotic calcification of the abdominal aorta with evidence of aortobiiliac bypass. No retroperitoneal lymphadenopathy is seen. IMPRESSION: 1. There is no evidence of fracture or malalignment involving the lumbar spine. 2. Osteopenia and multilevel spondylotic change as above. Dictated: 12/15/2017 6:47 AM Transcribed: 12/15/2017 7:02 AM DAVY_Vanessa Electronically signed by: Shaun Barreot M.D. 12/15/2017 7:08 AM Dictated Date/Time: 12/15/2017 6:47 AM
[2017-12-15] MEDS: COMBIGAN~ORDER AWAITING ACTION SCH ×3 (08:00→20:35)
--- NOTE | 2017-12-15 08:19 | DIAGNOSTIC IMAGING REPORT ---
ULTRASOUND OF THE CAROTID ARTERIES CLINICAL HISTORY: Change in mental status. COMPARISON STUDY: Carotid artery ultrasound dated 08/02/2017. TECHNIQUE: Real-time, grayscale, and color Doppler sonography of the carotid arteries is performed. Images are reviewed in the transverse and longitudinal planes. FINDINGS: Blood pressure in the right arm measures 160/73 and blood pressure in the left arm measures 176/79. The carotid arteries are patent bilaterally and demonstrate antegrade flow. There is moderate to advanced shadowing atherosclerotic plaque seen bilaterally. Normal doppler arterial waveforms are seen throughout. Velocity measurements are listed below. Common carotid peak systolic velocity (cm/sec): RIGHT: 112 LEFT: 83 ICA proximal peak systolic velocity (cm/sec): RIGHT: 225 LEFT: 161 ICA mid peak systolic velocity (cm/sec): RIGHT: 116 LEFT: 184 ICA distal peak systolic velocity (cm/sec): RIGHT: 104 LEFT: 67 ICA/CC peak systolic ratio: RIGHT: 2.0 LEFT: 2.2 Antegrade flow was shown in the vertebral arteries. The external carotid arteries are patent. IMPRESSION: 1. There is atherosclerotic plaque with evidence of 50-69% stenosis in the proximal internal carotid artery bilaterally by velocity criteria. 2. Antegrade flow is shown in the vertebral arteries. Electronically signed by: Shaun Barreto M.D. 12/15/2017 8:18 AM Dictated Date/Time: 12/15/2017 8:15 AM
[2017-12-15] MEDS: ASPIRIN 81 MG ECTAB PO SCH (08:25)
[2017-12-15] MEDS: MULTIVITAMIN TAB PO SCH (08:25)
[2017-12-15] MEDS: CLONIDINE HCL 0.1 MG TAB PO SCH ×2 (08:25→20:37)
[2017-12-15] MEDS: LORATADINE 10 MG TAB PO SCH (08:25)
[2017-12-15] MEDS: PRAVASTATIN SOD 40 MG TAB PO SCH (08:26)
[2017-12-15] MEDS: ALLOPURINOL 100 MG TAB PO SCH (08:26)
[2017-12-15] MEDS ORDERED: METOPROLOL TARTRATE 50 MG TAB PO SCH (09:00)
[2017-12-15] MEDS ORDERED: AMLODIPINE BESYLATE 5 MG TAB PO SCH (09:00)
--- NOTE | 2017-12-15 10:31 | DIAGNOSTIC IMAGING REPORT ---
MRI OF THE BRAIN WITHOUT IV CONTRAST CLINICAL HISTORY: Change in mental status. COMPARISON STUDY: CT of the brain dated 12/14/2017. TECHNIQUE: MRI of the brain was performed utilizing various T1 and T2-weighted sequences in the axial, sagittal, and coronal planes. IV contrast was not administered for this examination. FINDINGS: Brain parenchyma: There are age-related involutional changes noting mild to moderate patchy subcortical and periventricular microangiopathic disease. Chronic lacunar infarcts identified in the basal ganglia bilaterally, the pipo, and the left cerebellar hemisphere. There is no hemorrhage or mass effect. There is no restricted diffusion to suggest acute ischemia. A tiny focus of calcification or hemosiderin is noted in the right cerebral hemisphere. [place]-white matter differentiation is preserved. No extra-axial fluid collection is seen. The cerebellar tonsils are normal in configuration. Ventricles, sulci, and cisterns: Prominent secondary to involutional change. Pituitary and sella: Unremarkable. Intracranial vasculature: Normal flow voids are maintained at the skull base. Orbits: The bony orbits are grossly intact. Orbital contents are normal in appearance noting bilateral ocular lens implants. Sinuses and mastoids: Clear. Calvarium: Unremarkable. Cervical cord: Partially visualized cervical spinal cord is normal in morphology and signal intensity. IMPRESSION: Senescent changes as above with no acute intracranial abnormality. Electronically signed by: Shaun Barreto M.D. 12/15/2017 10:29 AM Dictated Date/Time: 12/15/2017 10:26 AM
[2017-12-15] MEDS: METOPROLOL TARTRATE 50 MG TAB PO SCH ×2 (11:17→20:37)
--- NOTE | 2017-12-15 14:14 | ECHOCARDIOGRAM REPORT ---
*NOTICE TO RECEIVING [employer] This information is strictly Confidential and protected under [place] law. [place] law prohibits you from making any further disclosure of this information unless further disclosure is expressly permitted by the written consent of the person to whom it pertains or is authorized by law. A general authorization for the release of medical or other information is not sufficient for this purpose. Hospital accepts no responsibility if the information is made available to any other person, INCLUDING THE PATIENT. Interpretation Summary * Name: JAMES BOWERS Study Date: 12/15/2017 06:33 AM BP: 164/78 mmHg * Patient Location: C.2T\S\S242\S\2 HR: 74 * : 1935 (M/d/yyy) Gender: Male Height: 66 in * Age: 82 yrs Ethnicity: [place] Weight: 134 lb * Ordering Physician: Jaylan Burgess * Performed By: Madeline Antunez JOANIE * * Reason For Study: ALT. OF CONSCIOUSNESS * BSA: 1.7 m2 * -- Conclusions -- * Aortic valve sclerosis mild, without significant aortic valvular stenosis. * 1. Normal LV size. Mild concentric LVH * 2. Normal LV systolic function. LVEF 65-70 %. No regional wall motion abnormalities. * 3. Normal RV size and function. * 4. Borderline LUIS E, no significant LVOT obstruction. * 5. Aortic valve sclerosis without stenosis * 6. Mild pulmonary hypertension. Estimated PASP 40-45 mmHg. Normal estimated CVP * 7. Compared with prior study on 04/09/2016: No significant changes. Procedure Details * A complete two-dimensional transthoracic echocardiogram was performed (2D, M-mode, Doppler and color flow Doppler). * A contrast injection of Definity was performed to improve assessment of LV function. * Contrast was injected into an intravenous site in the left arm. * One vial of Definity ultrasound contrast was diluted in normal saline to a total volume of 10 ml. A total of '2.5' ml of solution was administered during imaging. * Lot # [id number] of Definity utilized for procedure. * Expiration date 11/29. * The attending nurse who injected the contrast agent was JEFE ACEVES RN. Left Ventricle * The left ventricle is grossly normal size. * There is mild concentric left ventricular hypertrophy. * Echo findings are not consistent with left ventricular outflow obstruction. * Ejection Fraction = 65-70%. * No regional wall motion abnormalities noted. Right Ventricle * The right ventricle is grossly normal size. * The right ventricular systolic function is normal as assessed by tricuspid annular plane systolic excursion (TAPSE) (normal >1.5 cm). Atria * The left atrial size is normal. * Right atrium not well visualized. * No ASD detected; PFO is not assessed. Mitral Valve * The mitral valve is grossly normal. * There is mild mitral annular calcification. * There is systolic anterior motion of the mitral valve. * There is no mitral valve stenosis. * There is trace mitral regurgitation. Tricuspid Valve * There is trace tricuspid regurgitation. * Right ventricular systolic pressure is elevated at 40-50mmHg. Aortic Valve * Aortic valve sclerosis mild, without significant aortic valvular stenosis. * The aortic valve is trileaflet. * Aortic stenosis is absent. * There is no significant aortic regurgitation. Pulmonic Valve * The pulmonary valve is inadequately visualized, but the Doppler data is adequate for interpretation. * There is no pulmonic valvular stenosis. * Mild pulmonic valvular regurgitation. Great Vessels * The aortic root and proximal ascending aorta are normal sized. Pericardium/Pleural * There is no pericardial effusion. Great Vessels * Normal inferior vena cava size and collapsability with sniff indicates a normal right atrial pressure of 3 mmHg MMode 2D Measurements and Calculations IVSd 1.6 cm IVSs 1.8 cm LVIDd 4.2 cm LVIDs 2.1 cm LVPWd 1.3 cm LVPWs 1.9 cm IVS/LVPW 1.3 FS 50.6 % EDV(Teich) 79.3 ml ESV(Teich) 14.1 ml EF(Teich) 82.2 % EDV(cubed) 74.9 ml ESV(cubed) 9.0 ml EF(cubed) 87.9 % % IVS thick 7.5 % % LVPW thick 48.0 % LV mass(C)d 237.9 grams LV mass(C)dI 141.0 grams/m\S\2 LV mass(C)s 147.7 grams LV mass(C)sI 87.6 grams/m\S\2 SV(Teich) 65.2 ml SI(Teich) 38.6 ml/m\S\2 SV(cubed) 65.9 ml SI(cubed) 39.0 ml/m\S\2 ACS 10 cm LA dimension 4.2 cm asc Aorta Diam 3.1 cm LVOT diam 2.0 cm LVOT area 3.0 cm\S\2 LVAd ap4 24.9 cm\S\2 LVLd ap4 7.7 cm EDV(MOD-sp4) 66.1 ml EDV(sp4-el) 68.0 ml LVAs ap4 12.9 cm\S\2 LVLs ap4 6.8 cm ESV(MOD-sp4) 21.2 ml ESV(sp4-el) 21.0 ml EF(MOD-sp4) 68.0 % EF(sp4-el) 69.1 % LVAd ap2 22.7 cm\S\2 LVLd ap2 7.5 cm EDV(MOD-sp2) 56.3 ml EDV(sp2-el) 58.4 ml LVAs ap2 11.9 cm\S\2 LVLs ap2 6.7 cm ESV(MOD-sp2) 17.4 ml ESV(sp2-el) 18.0 ml EF(MOD-sp2) 69.1 % EF(sp2-el) 69.1 % LVLd %diff -3.53 % EDV(MOD-bp) 62.1 ml LVLs %diff -1.54 % ESV(MOD-bp) 19.2 ml EF(MOD-bp) 69.1 % SV(MOD-sp4) 44.9 ml SI(MOD-sp4) 26.6 ml/m\S\2 SV(MOD-sp2) 38.9 ml SI(MOD-sp2) 23.0 ml/m\S\2 SV(MOD-bp) 42.9 ml SI(MOD-bp) 25.4 ml/m\S\2 SV(sp4-el) 47.0 ml SI(sp4-el) 27.9 ml/m\S\2 SV(sp2-el) 40.3 ml SI(sp2-el) 23.9 ml/m\S\2 Doppler Measurements and Calculations MV E max gabriela 85.0 cm/sec MV A max gabriela 108.5 cm/sec MV E/A 0.78 MV dec time 0.26 sec Ao V2 max 132.0 cm/sec Ao max PG 7.0 mmHg Ao max PG (full) -0.88 mmHg GREG(V,A) 3.2 cm\S\2 GREG(V,D) 3.2 cm\S\2 LV V1 max PG 7.9 mmHg LV V1 max 140.1 cm/sec PA V2 max 88.7 cm/sec PA max PG 3.2 mmHg PI end-d gabriela 163.1 cm/sec TR max gabriela 294.6 cm/sec
--- NOTE | 2017-12-15 15:13 | Progress Note ---
Subjective Date of Service: Dec 15, 2017. Subjective Pt evaluation today including: conversation w/ patient, conversation w/ family , physical exam, chart review, lab review, review of studies, conversation w/ surgical consultant, review of inpatient medication list Awake alert orientated, doing well, coherent in conversation, no complaint Problem List Medical Problems: (1) Acute sinusitis Status: Acute (2) Altered mental status Status: Acute (3) HTN (hypertension) Status: Acute Review of Systems Constitutional: + weakness, + fatigue, No fever, No chills, No sweats, No weight loss, No problem reported Eyes: No worsening of vision, No eye pain, No redness, No discharge, No diplopia ENT: No hearing loss, No unusual epistaxis, No nasal symptoms, No sore throat, No tinnitus, No dental problems, No trouble swallowing Respiratory: No cough, No sputum, No wheezing, No shortness of breath, No dyspnea on exertion, No dyspnea at rest, No hemoptysis Cardiac: No chest pain, No orthopnea, No PND, No edema, No claudication, No palpitations Abdomen: No pain, No nausea, No vomiting, No diarrhea, No constipation Musculoskeletal: No joint pain, No muscle pain, No swelling, No calf pain Male : No dysuria, No urinary frequency, No incontinence, No nocturia more than once/night, No slowing stream, No hematuria Neurologic: No memory loss, No paralysis, No weakness, No numbness/tingling, No vertigo, No balance problems Psychiatric: No depression symptoms, No anhedonism, No anxiety, No insomnia, No substance abuse Heme: No abnormal bleeding/bruising, No clotting problems, No swollen lymph nodes, No night sweats Endo: No fatigue, No excessive thirst, No excessive urination Skin: No rash, No itch, No new/changing skin lesions, No color change, No bleeding Objective Vital Signs Date Time Temp Pulse Resp B/P (MAP) Pulse Ox O2 Delivery O2 Flow Rate FiO2 12/15/17 11:51 36.8 79 18 188/73 (111) 92 Room Air 12/15/17 08:00 Room Air 12/15/17 07:10 36.9 88 18 124/72 (89) 98 Room Air 12/15/17 03:00 36.7 74 18 164/78 (106) 95 Room Air 12/15/17 02:21 36.9 98 18 209/85 Room Air 12/15/17 01:55 73 20 177/73 93 Room Air 12/15/17 00:45 72 18 174/80 93 Room Air 12/14/17 23:46 76 18 202/90 93 Room Air 12/14/17 23:19 82 18 213/91 93 Room Air 12/14/17 22:26 82 18 208/126 92 Room Air 12/14/17 21:31 91 12/14/17 21:17 36.9 88 18 278/124 95 Room Air Physical Exam General Appearance: WD/WN, no apparent distress Eyes: normal inspection, PERRL, EOMI, sclerae normal ENT: normal ENT inspection, hearing grossly normal, pharynx normal Neck: supple, no adenopathy, thyroid normal, no JVD, no carotid bruits, trachea midline Respiratory/Chest: chest non-tender, lungs clear, normal breath sounds, no respiratory distress, no accessory muscle use Cardiovascular: regular rate, rhythm, no edema, no gallop, no JVD, no murmur Abdomen: normal bowel sounds, non tender, soft, no organomegaly, no pulsatile mass Extremities: normal range of motion, non-tender, normal inspection, no pedal edema, no calf tenderness, normal capillary refill, pelvis stable 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, no motor/sensory deficits, alert, normal mood/affect, oriented x 3 Skin: normal color, warm/dry, no rash Lymphatic: no adenopathy Laboratory Results Last 24 Hours Test 12/14/17 21:30 12/14/17 21:44 12/14/17 22:00 12/14/17 22:37 White Blood Count 10.89 K/uL Red Blood Count 4.77 M/uL Hemoglobin 15.5 g/dL Hematocrit 43.5 % Mean Corpuscular Volume 91.2 fL Mean Corpuscular Hemoglobin 32.5 pg Mean Corpuscular Hemoglobin Concent 35.6 g/dl Platelet Count 263 K/uL Mean Platelet Volume 10.7 fL Neutrophils (%) (Auto) 69.8 % Lymphocytes (%) (Auto) 16.1 % Monocytes (%) (Auto) 11.2 % Eosinophils (%) (Auto) 2.5 % Basophils (%) (Auto) 0.1 % Neutrophils # (Auto) 7.61 K/uL Lymphocytes # (Auto) 1.75 K/uL Monocytes # (Auto) 1.22 K/uL Eosinophils # (Auto) 0.27 K/uL Basophils # (Auto) 0.01 K/uL RDW Standard Deviation 43.3 fL RDW Coefficient of Variation 13.1 % Immature Granulocyte % (Auto) 0.3 % Immature Granulocyte # (Auto) 0.03 K/uL Prothrombin Time 10.5 SECONDS Prothromb Time International Ratio 1.0 Activated Partial Thromboplast Time 25.0 SECONDS Partial Thromboplastin Ratio 1.0 Sodium Level 140 mmol/L Potassium Level 3.8 mmol/L Chloride Level 107 mmol/L Carbon Dioxide Level 23 mmol/L Anion Gap 10.0 mmol/L Blood Urea Nitrogen 15 mg/dl Creatinine 1.37 mg/dl Est Creatinine Clear Calc Drug Dose 34.6 ml/min Estimated GFR () 54.5 Estimated GFR (Non- 47.0 BUN/Creatinine Ratio 10.9 Random Glucose 120 mg/dl Calcium Level 9.8 mg/dl Total Bilirubin 0.8 mg/dl Direct Bilirubin 0.2 mg/dl Aspartate Amino Transf (AST/SGOT) 20 U/L Alanine Aminotransferase (ALT/SGPT) 21 U/L Alkaline Phosphatase 67 U/L Total Creatine Kinase 157 U/L Creatine Kinase MB 1.6 ng/ml Creatine Kinase MB Ratio 1.0 Total Protein 7.8 gm/dl Albumin 4.1 gm/dl Lipase 177 U/L Thyroid Stimulating Hormone (TSH) 0.606 uIu/ml Urine Color YELLOW Urine Appearance CLEAR Urine pH 6.5 Urine Specific [place] 1.011 Urine Protein 2+ Urine Glucose (UA) NEG Urine Ketones TRACE Urine Occult Blood NEG Urine Nitrite NEG Urine Bilirubin NEG Urine Urobilinogen NEG Urine Leukocyte Esterase NEG Urine WBC (Auto) 1-5 /hpf Urine RBC (Auto) 0-4 /hpf Urine Hyaline Casts (Auto) 0 /lpf Urine Epithelial Cells (Auto) 5-10 /lpf Urine Bacteria (Auto) NEG Urine Opiates Screen NEG Urine Methadone, Qualitative NEG Urine Barbiturates NEG Urine Phencyclidine (PCP) Level NEG Ur Amphetamine/Methamphetamine NEG MDMA (Ecstasy) Screen NEG Urine Benzodiazepines Screen NEG Urine Cocaine Metabolite NEG Urine Marijuana (THC) NEG Bedside Troponin I 0.030 ng/ml Test 12/14/17 23:19 12/15/17 00:36 12/15/17 08:42 Bedside Lactic Acid Venous 1.64 mmol/L Salicylates Level < 1.7 mg/dl Acetaminophen Level < 2 ug/ml 25-Hydroxy Vitamin D Total 22.7 ng/ml Assessment and Plan 82M admitted on December 14, 2017 because of encephalopathy secondary to HTN vs drug induced. Possible hypertensive Encephalopathy vs Drug Induced side effect (recent rx of flexeril "10mg daily 1-2 up to 3 times daily vs CVA Per sisters, patient has improved since coming to the ER received clonidine and Metoprolol. Urine tox screen normal, cannot exclude the possibility that the patient took one too many flexeril Brain MRI per report : senescent changes as above with no acute intracranial abnormality. Echocardiogram per report, aortic valve sclerosis mild, without significant aortic valvular stenosis. * 1. Normal LV size. Mild concentric LVH * 2. Normal LV systolic function. LVEF 65-70 %. No regional wall motion abnormalities. * 3. Normal RV size and function. * 4. Borderline LUIS E, no significant LVOT obstruction. * 5. Aortic valve sclerosis without stenosis * 6. Mild pulmonary hypertension. Estimated PASP 40-45 mmHg. Normal estimated CVP * 7. Compared with prior study on 04/09/2016: No significant changes. Little carotid Doppler ultrasound per report: 1. There is atherosclerotic plaque with evidence of 50-69% stenosis in the proximal internal carotid artery bilaterally by velocity criteria. 2. Antegrade flow is shown in the vertebral arteries. cont control blood pressures Bilateral carotid artery 50-69% stenosis; advise patient to follow-up with PCP Accelerated HTN continue improving c/w Clonidine 0.2mg BID c/w 10mg Norvasc daily. c/w Lopressor 50mg BID HLD, c/w Pravastatin daily Gout Prophylaxis, c/w Allopurinol daily. PAD s/p ?femoral artery bypass & thrombolysis of an external iliac occlusion in 2009. c/w ASA daily Glaucoma : c/w home drops Increase activity, PT OT, follow-up discharge plan, possible need rehab, possible discharge tomorrow DVT Proph: SCDs Continued [facility] stay due to: multiple IV medications needed Discharge planning: home, rehab hospital
[2017-12-16 05:02] VITALS: BP 138/63; PULSE 64; TEMP 37.2; O2SAT 95
[2017-12-16 07:17] LABS: CREATININE 1.5 mg/dl (0.60-1.40); PHOSPHORUS 2.4 mg/dl (2.5-4.9); POTASSIUM 3.9 mmol/L (3.5-5.1)
[2017-12-16] MEDS: COMBIGAN~ORDER AWAITING ACTION SCH ×3 (08:00→23:11)
[2017-12-16] MEDS: CLONIDINE HCL 0.1 MG TAB PO SCH ×2 (08:37→20:09)
[2017-12-16] MEDS: LORATADINE 10 MG TAB PO SCH (08:38)
[2017-12-16] MEDS: CHOLECALCIFEROL 1000 INTER.UNIT TAB PO SCH (08:38)
[2017-12-16] MEDS: METOPROLOL TARTRATE 50 MG TAB PO SCH ×2 (08:38→20:08)
[2017-12-16] MEDS: PRAVASTATIN SOD 40 MG TAB PO SCH (08:38)
[2017-12-16] MEDS: MULTIVITAMIN TAB PO SCH (08:38)
[2017-12-16] MEDS: ASPIRIN 81 MG ECTAB PO SCH (08:38)
[2017-12-16] MEDS: ALLOPURINOL 100 MG TAB PO SCH (08:38)
[2017-12-16] MEDS: AMLODIPINE BESYLATE 5 MG TAB PO SCH (08:39)
[2017-12-16 11:25] VITALS: BP 114/55; PULSE 62; TEMP 36.8; O2SAT 95
--- NOTE | 2017-12-16 12:22 | Progress Note ---
Subjective Date of Service: Dec 16, 2017. Subjective Pt evaluation today including: conversation w/ patient, conversation w/ family , physical exam, chart review, lab review, review of studies, conversation w/ literacy consultant, review of inpatient medication list Doing fair, conversational, no complaint, Problem List Medical Problems: (1) Acute sinusitis Status: Acute (2) Altered mental status Status: Acute (3) HTN (hypertension) Status: Acute Review of Systems Constitutional: No fever, No chills, No sweats, No weight loss, No weakness, No fatigue, No problem reported Eyes: No worsening of vision, No eye pain, No redness, No discharge, No diplopia ENT: No hearing loss, No unusual epistaxis, No nasal symptoms, No sore throat, No tinnitus, No dental problems, No trouble swallowing Respiratory: No cough, No sputum, No wheezing, No shortness of breath, No dyspnea on exertion, No dyspnea at rest, No hemoptysis Cardiac: No chest pain, No orthopnea, No PND, No edema, No claudication, No palpitations Abdomen: No pain, No nausea, No vomiting, No diarrhea, No constipation Musculoskeletal: + problem reported (Posterior buttock mild pain because of the fall prior to the admission), No joint pain, No muscle pain, No swelling, No calf pain Male : No dysuria, No urinary frequency, No incontinence, No nocturia more than once/night, No slowing stream, No hematuria Neurologic: No memory loss, No paralysis, No weakness, No numbness/tingling, No vertigo, No balance problems Psychiatric: No depression symptoms, No anhedonism, No anxiety, No insomnia, No substance abuse Heme: No abnormal bleeding/bruising, No clotting problems, No swollen lymph nodes, No night sweats Endo: No fatigue, No excessive thirst, No excessive urination Skin: No rash, No itch, No new/changing skin lesions, No color change, No bleeding Objective Vital Signs Date Time Temp Pulse Resp B/P (MAP) Pulse Ox O2 Delivery O2 Flow Rate FiO2 12/16/17 08:00 Room Air 12/16/17 05:02 37.2 64 22 138/63 (88) 95 Room Air 12/15/17 23:43 37.0 67 22 162/66 (98) 93 Room Air 12/15/17 20:00 Room Air 12/15/17 19:49 37.4 76 20 192/82 (118) 93 Room Air 12/15/17 15:47 36.7 66 20 188/74 (112) 93 Room Air Physical Exam General Appearance: WD/WN, no apparent distress Eyes: normal inspection, PERRL, EOMI, sclerae normal ENT: normal ENT inspection, hearing grossly normal, pharynx normal Neck: supple, no adenopathy, thyroid normal, no JVD, no carotid bruits, trachea midline Respiratory/Chest: chest non-tender, normal breath sounds, no respiratory distress, no accessory muscle use, + decreased breath sounds Cardiovascular: regular rate, rhythm, no edema, no gallop, no JVD, no murmur Abdomen: normal bowel sounds, non tender, soft, no organomegaly, no pulsatile mass Extremities: normal range of motion, non-tender, normal inspection, no pedal edema, no calf tenderness, normal capillary refill, pelvis stable 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, no motor/sensory deficits, alert, normal mood/affect, oriented x 3 Skin: normal color, warm/dry, no rash Lymphatic: no adenopathy Laboratory Results Last 24 Hours Test 12/16/17 06:28 12/16/17 09:18 Sodium Level 140 mmol/L Potassium Level 3.9 mmol/L Chloride Level 106 mmol/L Carbon Dioxide Level 25 mmol/L Anion Gap 8.0 mmol/L Blood Urea Nitrogen 19 mg/dl Creatinine 1.50 mg/dl Est Creatinine Clear Calc Drug Dose 33.1 ml/min Estimated GFR () 48.8 Estimated GFR (Non- 42.1 BUN/Creatinine Ratio 12.9 Random Glucose 96 mg/dl Calcium Level 9.0 mg/dl Phosphorus Level 2.4 mg/dl Magnesium Level 2.0 mg/dl Erythrocyte Sedimentation Rate 13 mm/hr C-Reactive Protein 1.47 mg/dl Procalcitonin 0.05 ng/ml Assessment and Plan 82M admitted on December 14, 2017 because of encephalopathy secondary to HTN vs drug induced, which was totally resolved, Blood culture 1 out of 2 tube gram-positive, was reported today, no obvious sign of infection, however will watch overnight Possible hypertensive Encephalopathy vs Drug Induced side effect (recent rx of Baclofen vs CVA Per sisters, patient has improved since coming to the ER Has been in normal mental status since yesterday and continue to looks good today, no more confused received clonidine and Metoprolol. Urine tox screen normal, cannot exclude the possibility that the patient took one too many Baclofen Brain MRI per report : senescent changes as above with no acute intracranial abnormality. Echocardiogram per report, aortic valve sclerosis mild, without significant aortic valvular stenosis. * 1. Normal LV size. Mild concentric LVH * 2. Normal LV systolic function. LVEF 65-70 %. No regional wall motion abnormalities. * 3. Normal RV size and function. * 4. Borderline LUIS E, no significant LVOT obstruction. * 5. Aortic valve sclerosis without stenosis * 6. Mild pulmonary hypertension. Estimated PASP 40-45 mmHg. Normal estimated CVP * 7. Compared with prior study on 04/09/2016: No significant changes. Little carotid Doppler ultrasound per report: 1. There is atherosclerotic plaque with evidence of 50-69% stenosis in the proximal internal carotid artery bilaterally by velocity criteria. 2. Antegrade flow is shown in the vertebral arteries. Bilateral carotid artery 50-69% stenosis; advise patient to follow-up with PCP Blood culture 1 out of 2 tube gram-positive, likely from contamination Blood was sent upon admission possible because of encephalopathy and mental status changes, was reported today, no obvious sign of infection, chest x-ray no pneumonia UA has no UTI, minimal elevated CRP however ESR and troponin negative, no spiking fever or leukocytosis, mentally function normal for 2 days will watch overnight, patient could be discharged soon if repeated blood culture negative, or if current culture shows signs of contamination Accelerated HTN upon admission, continue improving c/w Clonidine 0.2mg BID c/w 10mg Norvasc daily. c/w Lopressor 50mg BID HLD, c/w Pravastatin daily Low back pain, possible sciatica, seen by urgent care walk-in clinic, was given Baclofen, minimal lower back pain now Gout Prophylaxis, c/w Allopurinol daily. PAD s/p ?femoral artery bypass & thrombolysis of an external iliac occlusion in 2009. c/w ASA daily Glaucoma : c/w home drops Increase activity, physical therapy feels patient is rehab potential, however patient and family want to go home, Needed PT evaluation again to define rehab, home . or home health care, has called nurse to request physical therapy evaluation patient again DVT Proph: SCDs Continued [facility] stay due to: multiple IV medications needed Discharge planning: home, rehab hospital
[2017-12-16 14:02] VITALS: BP 114/55; PULSE 62; TEMP 36.8; O2SAT 95
[2017-12-16 20:05] VITALS: BP 155/66; PULSE 70
[2017-12-16 23:02] VITALS: BP 107/55; PULSE 59; TEMP 36.7; O2SAT 92
--- NOTE | 2017-12-17 07:18 | Clinical Documentation Query ---
CLINICAL DOCUMENTATION QUERY QUERY 1 OF 3 82 yo male admitted with hypertensive encephalopathy has a history of diastolic dysfunction and echo that showed EF = >70%, mild concentric left ventricular hypertrophy, and Grade I diastolic dysfunction. Patient is not on a diuretic. In your clinical opinion is this patient being managed for: ( x ) Chronic diastolic CHF ( ) Not Agree ( ) Other explanation of clinical findings (No explanation is considered a No Response) ( ) Unable to determine ( ) Need to Discuss (Phone CDS or qliq) (No discussion is considered a No Response) The medical record reflects the following clinical findings, treatment, and risk factors. Clinical Indicators: As above Treatment: I&O, BP treatment: Clonidine, Norvasc, Lopressor PO, echo Risk Factors: HTN, age, CKD QUERY 2 OF 3 Patient's creatinine level 1.37 trending up to 1.50. In your clinical opinion is this patient being managed for: ( ) Acute kidney failure ( ) Not Agree ( ) Other explanation of clinical findings (No explanation is considered a No Response) ( ) Unable to determine ( ) Need to Discuss (Phone CDS or qliq) (No discussion is considered a No Response) The medical record reflects the following clinical findings, treatment, and risk factors. Clinical Indicators: As above Treatment: IV hydration, I&O, serial PRPs Risk Factors: Age, HTN, diastolic CHF, CKD QUERY 3 OF 3 Patient's GFR levels over past 4 months range 38.7 to 47.0. In your clinical opinion is this patient being managed for: ( ) Chronic kidney disease, stage 3 ( ) Not Agree ( ) Other explanation of clinical findings (No explanation is considered a No Response) ( ) Unable to determine ( ) Need to Discuss (Phone CDS or qliq) (No discussion is considered a No Response) The medical record reflects the following clinical findings, treatment, and risk factors. Clinical Indicators: As above Treatment: IV hydration, I&O, serial PRPs Risk Factors: HTN, diastolic CHF, age Please clarify and document your clinical opinion in the progress notes and discharge summary. Terms such as "probable", "suspected", "likely", "questionable", "possible", or "still to be ruled out" are acceptable. IF IN AGREEMENT, YOU MUST DOCUMENT ABOVE DIAGNOSTIC STATEMENT IN DAILY PROGRESS NOTES AND DISCHARGE SUMMARY. This document is not part of the patient's record. Thank You, Anais Fernandes RN, MSN [phone]
[2017-12-17 07:22] VITALS: BP 165/70; PULSE 73; TEMP 36.7; O2SAT 93
[2017-12-17] MEDS: COMBIGAN~ORDER AWAITING ACTION SCH (08:00)
[2017-12-17] MEDS: MULTIVITAMIN TAB PO SCH (08:13)
[2017-12-17] MEDS: LORATADINE 10 MG TAB PO SCH (08:13)
[2017-12-17] MEDS: CHOLECALCIFEROL 1000 INTER.UNIT TAB PO SCH (08:13)
[2017-12-17] MEDS: CLONIDINE HCL 0.1 MG TAB PO SCH (08:13)
[2017-12-17] MEDS: PRAVASTATIN SOD 40 MG TAB PO SCH (08:14)
[2017-12-17] MEDS: METOPROLOL TARTRATE 50 MG TAB PO SCH (08:14)
[2017-12-17] MEDS: ALLOPURINOL 100 MG TAB PO SCH (08:15)
[2017-12-17] MEDS: ASPIRIN 81 MG ECTAB PO SCH (08:15)
[2017-12-17] MEDS: AMLODIPINE BESYLATE 5 MG TAB PO SCH (08:15)
--- NOTE | 2017-12-17 14:00 | Discharge Instructions ---
Discharge Instructions Date of Service Dec 17, 2017. Admission Reason for Admission: Encephalopathy Acute Discharge Discharge Diagnosis / Problem: medicine induced confusion Discharge Goals Goal(s): Diagnostic testing, Therapeutic intervention Activity Recommendations Activity Limitations: as noted below Lifting Limitations: gradually increase as tolerated . Current Hospital Diet Patient's current hospital diet: Regular Diet Discharge Diet Recommended Diet: Renal Diet Pending Studies Studies pending at discharge: no Laboratory Results Hemoglobin A1c Test 10/29/17 08:06 Range/Units Estimated Average Glucose 126 mg/dl Hemoglobin A1c 6.0 H 4.5-5.6 % Lipid Panel Test 10/29/17 08:06 Range/Units Triglycerides Level 201 H 0-150 mg/dl Cholesterol Level 143 0-200 mg/dl HDL Cholesterol 33 mg/dl Cholesterol/HDL Ratio 4.3 LDL Cholesterol, Calculated 70 mg/dl Medical Emergencies . Who to Call and When: Medical Emergencies: If at any time you feel your situation is an emergency, please call 911 immediately. . Non-Emergent Contact Non-Emergency issues call your: Primary Care Provider Call Non-Emergent contact if: temperature is above 101, your pain is not controlled . . "Provider Documentation" section prepared by Thaddeus Irwin. .
[2017-12-17 14:34] VITALS: BP 165/70; PULSE 73; TEMP 36.7; O2SAT 93
--- NOTE | 2017-12-17 18:52 | Discharge Summary ---
Discharge Summary Date of Service Dec 17, 2017. Discharge Summary Admission Date: Dec 15, 2017 at 14:35 Discharge Date: Dec 17, 2017 Discharge Disposition: Home Principal Diagnosis: toxic encephalopathy resolved Immunizations: Have You Had Influenza Vaccine: Yes History of Tetanus Vaccine?: Yes History of Pneumococcal: No History of Hepatitis B Vaccine: No Medication Reconciliation Continued Medications: Allopurinol (Allopurinol) 100 Mg Tab 100 MG PO DAILY Amlodipine Besylate (Norvasc) 10 Mg Tab 1 TAB PO DAILY for 30 Days, #30 TAB 5 Refills Aspirin (Aspirin Ec) 81 Mg Tab 81 MG PO DAILY Aspirin Enteric Coated (Ecotrin Or Generic *) 81 Mg Ectab 81 MG PO DAILY, 0 Refills Brimonidine Tartrate-Timolol M (Combigan) 1 Roslyn Rolsyn 1 DROP OPB BID Clonidine Hcl (Catapres) 0.2 Mg Tab 0.1 MG PO BID, TAB 1/2 TABLET DOSE Colchicine (Colcrys) 0.6 Mg Tab 0.6 MG PO DAILY PRN for GOUT FLARE Enteral Nutrition Formula (Ensure Plus Vanilla) 1 Can Liqd 1 CAN PO DAILY, CAN Loratadine (Claritin) 10 Mg Tab 10 MG PO DAILY, TAB Meloxicam (Mobic) 15 Mg Tab 15 MG PO DAILY, TAB TAKE WITH FOOD Metoprolol Tartrate (Lopressor) (Lopressor) 50 Mg Tab 50 MG PO BID, TAB Metoprolol Tartrate (Lopressor) (Lopressor) 25 Mg Tab 25 MG PO BID, TAB Multivitamin (Multivitamin) Tab 1 TAB PO DAILY, TAB Pravastatin (Pravachol ) 20 Mg Tab 80 MG PO HS Discontinued Medications: Baclofen (Lioresal) 10 Mg Tab 10-20 MG PO TID PRN for CRAMPING, TAB Discharge Exam Review of Systems: Constitutional: No fever, No chills Respiratory: No cough, No shortness of breath Cardiovascular: No chest pain, No orthopnea, No edema Abdomen: No pain, No nausea, No diarrhea Musculoskeletal: No joint pain, No muscle pain, No swelling Psychiatric: No depression symptoms, No anxiety Physical Exam: General Appearance: WD/WN, no apparent distress Eyes: normal inspection, sclerae normal Neck: supple, no carotid bruits Respiratory/Chest: chest non-tender, lungs clear Cardiovascular: regular rate, rhythm, no murmur Abdomen / GI: normal bowel sounds, non tender, soft Neurologic/Psychiatric: alert, oriented x 3 Hospital Course 82M admitted on December 14, 2017 because of toxic encephalopathy secondary to medication for sciatica Blood culture 1 out of 2 tube gram-positive, was reported today, no obvious sign of infection Brain MRI per report : senescent changes as above with no acute intracranial abnormality. Echocardiogram Mild pulmonary hypertension. Estimated PASP 40-45 mmHg. Accelerated HTN upon admission, improved Clonidine 0.2mg BID, 10mg Norvasc daily. Lopressor 50mg BID HLD, c/w Pravastatin daily Low back pain, possible sciatica,recommended only tylenol as did have issues with oxycodone Gout Prophylaxis, c/w Allopurinol daily. PAD s/p ?femoral artery bypass & thrombolysis of an external iliac occlusion in 2009. c/w ASA daily Glaucoma : c/w home drops Total Time Spent: Greater than 30 minutes This includes examination of the patient, discharge planning, medication reconciliation, and communication with other providers. Discharge Instructions Please refer to the electronic Patient Visit Report (Discharge Instructions) for additional information.
== END 2017-12-17 15:29 | disposition home or self-care (01) | DRG 92 ==
LOC: EDBD 21:17 → C.EDB 21:18 → C.2T 12-15 00:41 → ENRESERV 12-15 01:02 → OBSVTOIN 12-15 14:35 → ENRESERV 12-16 12:44 → C.MS2W 12-16 14:08
PROVIDERS: ADMIT Family Medicine; ATTEND Internal Medicine
DX: G92 Toxic encephalopathy (principal); I50.32 Chronic diastolic (congestive) heart failure; T42.8X5A Adverse effect of antiparkinsonism drugs and other central muscle-tone depressants, initial encounter; N40.0 Benign prostatic hyperplasia without lower urinary tract symptoms; J44.9 Chronic obstructive pulmonary disease, unspecified; E78.5 Hyperlipidemia, unspecified; H40.9 Unspecified glaucoma; I10 Essential (primary) hypertension; I73.9 Peripheral vascular disease, unspecified; M54.40 Lumbago with sciatica, unspecified side; M10.9 Gout, unspecified; Y92.019 Unspecified place in single-family (private) house as the place of occurrence of the external cause

== ENCOUNTER 2017-12-28 15:57 | Emergency (ER) | payer OTHER, MEDICARE ==
[~2017-12-28] VITALS: Ht 167.6 cm; Wt 70.0 kg
[~2017-12-28 15:57] MED LIST changes: +ASPI81TA28 PO; +CLC6 PO; +MELO15TA10 PO; +METO25TA56 PO
[2017-12-28 16:03] VITALS: TEMP 36.7; Ht 167.6 cm; Wt 70.0 kg
[2017-12-28] MEDS ORDERED: LIDOCAINE 1% BUFFERED INJ 20 ML VIAL INFIL STA (16:13)
--- NOTE | 2017-12-28 16:20 | EMERGENCY ROOM VISIT NOTE ---
ED Visit Note First contact with patient: 16:09 This Patient was discussed with the physician residential living assistant, Gautam Mccormick PA-C. The pertinent historical and physical exam findings were confirmed. I agree with the studies ordered and with the interpretations of these studies. I agree with the disposition and care plan.
[2017-12-28] MEDS ORDERED: CEPHALEXIN 500MG HOME PACK 1 EA BTL PO STA (18:11)
[2017-12-28] MEDS ORDERED: CEPH500C PO (18:13)
--- NOTE | 2017-12-28 18:15 | EMERGENCY ROOM VISIT NOTE ---
ED Visit Note First contact with patient: 16:09 Chief Complaint: "Cuts". History of Present Illness: This patient is a 82-year-old male who presents to the Emergency Department via private vehicle for evaluation of their left arm lacerations. Patient sustained the laceration while ambulating up steps, as he was carrying groceries in both hands noting that he lost his balance, fell with the left arm outstretched which struck nearby decorative bushes. They report a moderate amount of bleeding initially. They deny any numbness or tingling into the distal extremity. They report no decreased range of motion of the affected digit. He denies striking his head or loss of consciousness. He denies any chest pain or shortness of breath as a reason of the fall. No syncope. Patient rates his current discomfort as a 0/10. Patient's Tetanus status is currently up-to-date. Medications: As noted below Allergies: As noted below PMH: As noted below SHx: Patient lives locally ROS: All pertinent positive and negative review of systems are appropriately documented in the History of Present Illness. Physical Exam: VITAL SIGNS - Vital signs and nursing notes were reviewed. Hypertensive. Otherwise stable. GENERAL -82-year-old male appearing his stated age who is in no acute distress. Communicates well with provider and answers questions appropriately. SKIN - There are 3 separate lacerations. Beginning distally, the patient has a 4 cm laceration between the second and third MCP joints on the dorsal aspect. The second laceration is on the mid dorsal forearm that measures 2.5 cm and the third laceration is almost to the elbow region on the dorsal aspect of the forearm that measures 1.5 cm. Total repairable length is 8 cm. The edges gape apart with traction. There is a large amount of dirt noted in the distalmost laceration. Upon further examination there are no deep structures including vessel, tendon, or bony structures appreciated. There is no active bleeding noted. MUSCULOSKELETAL - Laceration as described above. +5/5 strength appreciated of the affected digit. Full range of motion of the affected digit. NEUROLOGIC - Spinothalamic tract was found to be intact with ability to discriminate sharp versus dull sensation. No sensory defects of the dorsal column were appreciated utilizing light touch for evaluation. No bony tenderness. VASCULAR - Capillary refill was brisk. ED Course: Patient was seen and evaluated by myself and the attending physician. Risks and benefits of performing primary wound closure versus no repair were discussed with the patient who verbalizes understanding. I do not believe that imaging needs to be obtained. There is no real impact trauma, rather the Lemons had sharp objects which cut the arm. Verbal consent was obtained prior to performing the procedure. 4 cc of 1% buffered lidocaine was utilized to anesthetize the distalmost laceration with 2 cc in each subsequent laceration working proximally. I did utilize a large basin to collect over 1 L of normal saline that was irrigated through the patient's lacerations. Much of the debris was able be removed by this. I then was able to remove the remainder of the debris with forceps. The wound was cleansed and prepped in the typical sterile fashion utilizing normal saline and Betadine. The wound was sterilely draped. Once proper anesthetization was established, the wound was further examined and demonstrated no fracture or evidence of tendon injury. The wound was copiously irrigated with normal saline and Betadine. The first and distalmost wound was closed using 8 simple, 4-0 nylon sutures with the wound edges being well approximated. The middle wound was closed utilizing 3, simple , 4-0 nylon sutures and the proximalmost laceration was closed utilizing 2, simple, 4-0 nylon sutures with the wound edges being well approximated. Patient tolerated the procedure well. No complications were met. The wound was cleansed and dressed with a Bacitracin dressing. A metal splint was applied to the finger for comfort. Tetanus last updated in 2011. Unfortunately the patient presents with sustained hypertension. He has no chest pain, shortness of breath or evidence of CVA. He notes that he did not have his evening medications for his blood pressure. I ordered him his clonidine and Lopressor. He was reevaluated and the blood pressure did improve some. His systolic was in the 190s with diastolic in the 80s. I did elect to obtain baseline labs and his creatinine does not appear to have changed from baseline. No emergent anemia or leukocytosis. I will note that his anemia has worsened since previous blood work but at this time his values are stable. I will note that his kidney function has slightly improved compared to previous. I did elect to obtain a troponin which was within normal limits. A bedside EKG was also performed and reveals per my interpretation sinus bradycardia, with nonspecific T-wave abnormality. No evidence of WA on this examination. No significant change compared to EKG that was performed on December 14 of this year. I did offer the patient inpatient management for his hypertension, and he elected to be discharged home with close follow-up with the family doctor. Benefit versus risk discussed. He will be started upon Keflex for his mechanism of injuries/ presentation with a dirty wound. Patient educated on worrisome symptoms for return visit to the Emergency Department. Patient discharged to home in good condition. Case discussed with the attending physician. Blood pressure reviewed and found to be elevated, I suspect this is likely situational. The patient notes a history of whitecoat syndrome. He notes that when he returns home his blood pressure will likely return to normal. He notes that it is always elevated at the doctor's office. I believe this is likely a component of that, but certainly did offer him inpatient management for his hypertension. He is to follow-up closely. He is to call the family doctor. Medication list reviewed. Evaluation and treatment of this patient the following differential diagnoses were obtained: Fracture, dislocation, WA, PE, among others. 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 Status post PET/CT with no metastatic disease Status post completion of definitive radiation therapy 12/23/2013 received 7000 cGy Status: Resolved Surgical Problems: (1) H/O aorto-femoral bypass Status: Resolved (2) H/O transurethral resection of prostate Status: Resolved (3) Status post cataract surgery Status: Resolved Current/Historical Medications Scheduled Allopurinol (Allopurinol), 100 MG PO DAILY Amlodipine Besylate (Norvasc), 1 TAB PO DAILY Aspirin (Aspirin Ec), 81 MG PO DAILY Aspirin Enteric Coated (Ecotrin Or Generic *), 81 MG PO DAILY Brimonidine Tartrate-Timolol M (Combigan), 1 DROP OPB BID Cephalexin Monohydrate (Keflex), 500 MG PO BID Clonidine Hcl (Catapres), 0.1 MG PO BID Enteral Nutrition Formula (Ensure Plus Vanilla), 1 CAN PO DAILY Loratadine (Claritin), 10 MG PO DAILY Meloxicam (Mobic), 15 MG PO DAILY Metoprolol Tartrate (Lopressor) (Lopressor), 50 MG PO BID Metoprolol Tartrate (Lopressor) (Lopressor), 25 MG PO BID Multivitamin (Multivitamin), 1 TAB PO DAILY Pravastatin (Pravachol ), 80 MG PO HS Scheduled PRN Colchicine (Colcrys), 0.6 MG PO DAILY PRN for GOUT FLARE Allergies Coded Allergies: Clozapine (Verified Allergy, Unknown, unknown, 05/15/15) Haloperidol (Verified Allergy, Unknown, unknown, 05/15/15) Metoclopramide (Verified Allergy, Unknown, `, 05/15/15) Phenothiazines (Verified Allergy, Unknown, unkonwn, 05/15/15) Vital Signs Date Time Temp Pulse Resp B/P (MAP) Pulse Ox O2 Delivery O2 Flow Rate FiO2 12/28/17 22:20 68 18 200/87 93 12/28/17 18:36 64 20 226/139 98 12/28/17 16:03 36.7 67 18 194/124 93 Room Air Laboratory Results 12/28/17 20:33 Red Blood Count 4.26, Mean Corpuscular Volume 90.6, Mean Corpuscular Hemoglobin 32.4, Mean Corpuscular Hemoglobin Concent 35.8, Mean Platelet Volume 10.2, Neutrophils (%) (Auto) 73.9, Lymphocytes (%) (Auto) 13.1, Monocytes (%) (Auto) 9.2, Eosinophils (%) (Auto) 3.4, Basophils (%) (Auto) 0.2, Neutrophils # (Auto) 7.49, Lymphocytes # (Auto) 1.33, Monocytes # (Auto) 0.93, Eosinophils # (Auto) 0.34, Basophils # (Auto) 0.02 12/28/17 20:33 Test 12/28/17 20:33 White Blood Count 10.13 K/uL (4.8-10.8) Red Blood Count 4.26 M/uL (4.7-6.1) Hemoglobin 13.8 g/dL (14.0-18.0) Hematocrit 38.6 % (42-52) Mean Corpuscular Volume 90.6 fL (80-100) Mean Corpuscular Hemoglobin 32.4 pg (25-34) Mean Corpuscular Hemoglobin Concent 35.8 g/dl (32-36) Platelet Count 243 K/uL (130-400) Mean Platelet Volume 10.2 fL (7.4-10.4) Neutrophils (%) (Auto) 73.9 % Lymphocytes (%) (Auto) 13.1 % Monocytes (%) (Auto) 9.2 % Eosinophils (%) (Auto) 3.4 % Basophils (%) (Auto) 0.2 % Neutrophils # (Auto) 7.49 K/uL (1.4-6.5) Lymphocytes # (Auto) 1.33 K/uL (1.2-3.4) Monocytes # (Auto) 0.93 K/uL (0.11-0.59) Eosinophils # (Auto) 0.34 K/uL (0-0.5) Basophils # (Auto) 0.02 K/uL (0-0.2) RDW Standard Deviation 42.4 fL (36.4-46.3) RDW Coefficient of Variation 13.0 % (11.5-14.5) Immature Granulocyte % (Auto) 0.2 % Immature Granulocyte # (Auto) 0.02 K/uL (0.00-0.02) Anion Gap 8.0 mmol/L (3-11) Est Creatinine Clear Calc Drug Dose 34.0 ml/min Estimated GFR () 50.5 Estimated GFR (Non- 43.5 BUN/Creatinine Ratio 13.0 (10-20) Calcium Level 9.7 mg/dl (8.5-10.1) Troponin I 0.017 ng/ml (0-0.045) Medications Administered Medications (Trade) Dose Ordered Sig/Sonia Route Start Time Stop Time Status Last Admin Dose Admin Clonidine HCl (Catapres Tab) 0.1 mg NOW STAT PO 12/28/17 18:36 12/28/17 18:37 DC 12/28/17 18:42 0.1 MG Metoprolol Tartrate (Lopressor Tab) 25 mg NOW STAT PO 12/28/17 19:38 12/28/17 19:40 DC 12/28/17 19:59 25 MG Departure Information Impression Primary Impression: Laceration Dispostion Home / Self-Care Condition GOOD Prescriptions Cephalexin Monohydrate (Keflex) 500 Mg Cap 500 MG PO BID for 7 Days, #14 CAP Prov: Bamat, Gautam W., PA-C 12/28/17 Referrals Hieu Lopes M.D. (PCP) Patient Instructions [facility] Additional Instructions Discharge Instructions: You have received 13 sutures on your left arm region. These sutures are NOT dissolvable and WILL need to be removed by a health care provider in 14 days. You can return to the Emergency Department or contact your Primary Care Provider to have the sutures removed. Do not submerge the finger in water. Showering is okay. Change the dressing once a day. What you can do is take all the dressings off, shower, do not submerge the finger in water, then packed these regions dry, then apply antibiotic ointment to the wounds, and then put a dressing on these. Please wear the splint for comfort until the sutures are removed. Keflex 500 mg every 12 hours. Your given the first 4 tablets which will last about 48 hours from here with the remainder sent to the pharmacy you have indicated. Proper wound care is essential for adequate wound healing and infection prevention. You can shower and clean the wound with soap and water. Do not scour over the wound, pat dry with a towel. Do not submerse the wound (i.e. bathe or dish wash) until the sutures have been removed. You can use an antibiotic ointment with a dressing over the wound for the next 3-4 days. After this time you may leave the wound dry and open to the air. If crust develops over the wound you can use a Q-tip to apply a 1:1 peroxide:water solution to clean the wound. Look for signs of infection of the wound including: increased pain, swelling, foul discharge, streaking, or increased temperature. If any of these are noticed you should return to the Emergency Department for further assessment and treatment. As with any laceration you may have received nerve damage to the surrounding tissues. This damage may or may not be permanent. You should keep the area covered with sunscreen for the first 6 months to 1 year when at risk for exposure to help minimize scarring. You can also use scar reducing creams or Vitamin E oil to help minimize scarring. Return to the emergency department if your symptoms worsen despite treatment course outlined above.
[2017-12-28] MEDS ORDERED: CLONIDINE HCL 0.1 MG TAB PO STA (18:36)
[2017-12-28] MEDS ORDERED: METOPROLOL TARTRATE 25 MG TAB PO STA (19:38)
[2017-12-28 20:42] LABS: BASO % 0.2 %; BASO ABS # 0.02 K/uL (0-0.2); EOS % 3.4 %; EOS ABS # 0.34 K/uL (0-0.5); HEMATOCRIT 38.6 % (42-52); HEMOGLOBIN 13.8 g/dL (14.0-18.0); IG# 0.02 K/uL (0.00-0.02); LYMPH % 13.1 %; LYMPH ABS # 1.33 K/uL (1.2-3.4); MEAN CELL VOLUME 90.6 fL (80-100); MEAN CORPUSCULAR HEMOGLOBIN 32.4 pg (25-34); MEAN CORPUSCULAR HGB CONC 35.8 g/dl (32-36); MEAN PLATELET VOLUME 10.2 fL (7.4-10.4); MONO % 9.2 %; MONO ABS # 0.93 K/uL (0.11-0.59); NEUT % 73.9 %; NEUT ABS # 7.49 K/uL (1.4-6.5); PLATELET COUNT 243 K/uL (130-400); RED CELL DISTRIBUTION WIDTH SD 42.4 fL (36.4-46.3); WHITE BLOOD COUNT 10.13 K/uL (4.8-10.8)
[2017-12-28 21:17] LABS: CALCIUM 9.7 mg/dl (8.5-10.1); CREATININE 1.46 mg/dl (0.60-1.40); POTASSIUM 4.2 mmol/L (3.5-5.1)
[2017-12-28 22:20] VITALS: BP 200/87; PULSE 68; O2SAT 93
== END 2017-12-28 22:23 | disposition home or self-care (01) ==
LOC: C.EDB 15:58 → C.EDD 22:23
DX: S51.819A Laceration without foreign body of unspecified forearm, initial encounter (principal); S61.412A Laceration without foreign body of left hand, initial encounter; W10.9XXA Fall (on) (from) unspecified stairs and steps, initial encounter; N40.0 Benign prostatic hyperplasia without lower urinary tract symptoms; H40.9 Unspecified glaucoma; E78.00 Pure hypercholesterolemia, unspecified; I10 Essential (primary) hypertension; I73.9 Peripheral vascular disease, unspecified; Z88.8 Allergy status to other drugs, medicaments and biological substances; Z79.82 Long term (current) use of aspirin; Z79.899 Other long term (current) drug therapy

== ENCOUNTER 2020-12-04 10:08 | Inpatient (IN) ==
[2020-12-04] MEDS ORDERED: MoRPHine SULFATE 4 MG/ML 1 ML CARP\\VIAL IV PRN (10:18)
[2020-12-04] MEDS ORDERED: ONDANSETRON INJ 2 MG/ML 2 ML VIAL IV STA (10:18)
--- NOTE | 2020-12-04 10:27 | Emergency Department Note ---
Impression & Plan Closed fracture of right hip, Closed fracture of neck of left humerus, Fall, Head injury ED Provider Note NAME: JAMES BOWERS AGE: 85 SEX: M : 1935 ARRIVES VIA: Ambulance INFORMANT: Patient, ED PROVIDER(S): Allan Zafar DO CHIEF COMPLAINT: Fall HPI: The patient is an 85-year-old male who presented to the emergency department for an evaluation after a fall. The patient states he was walking down the steps when he lost his balance. He tried to regain his balance but was unable to. He fell striking his right side. He also injured his left shoulder. The patient was unable to stand. He called 911 and the patient was brought to the emergency department via ambulance. The patient states his pain is moderate to severe especially with any movement of his right hip. He denies any previous injury to this leg. The patient denies having any headache but did strike his head. He is not currently on blood thinners. He denies having any back pain or abdominal pain. He denies having any chest pain. The patient states his pain is moderate to severe at this time. He was immobilized and brought to the [facility] department immediately by BLS. ROS: See above HPI for pertinent positives & negatives. A total of 10 systems reviewed and were otherwise negative. PAST MEDICAL HISTORY: See Below PAST SURGICAL HISTORY: See Below FAMILY HISTORY: See Below SOCIAL HISTORY: See Below HOME MEDICATIONS: See Below ALLERGIES: See Below VITALS: See Below PHYSICAL EXAMINATION: GENERAL: The patient is awake and alert. The patient is somewhat anxious appearing. EYES: The conjunctivae are clear. The pupils are round and reactive. EARS, NOSE, MOUTH AND THROAT: The nose is without any evidence of any deformity. NECK: No posterior tenderness was noted in the cervical spine. Range of motion appears intact. There is no step-off. RESPIRATORY: Normal respiratory effort is noted there is no evidence of wheezing rhonchi or rales CARDIOVASCULAR: Regular rate and rhythm noted there no murmurs rubs or gallops normal S1 normal S2. GASTROINTESTINAL: The abdomen is soft. Abdomen is nontender. MUSCULOSKELETAL/EXTREMITIES: There is significant swelling and tenderness over the left shoulder. There is pain with range of motion testing left shoulder. There is shortening and mild external rotation of the right lower extremity. There are abrasions noted on both knees. There is no tenderness in either knee. SKIN: There is no obvious evidence of any rash. Trace pedal edema was noted bilaterally. Skin is warm and dry. NEUROLOGIC: Patient is awake alert and oriented x3. MEDICAL DECISION MAKING: The patient is an 85-year-old male who presented to the emergency department for an evaluation after a fall. The patient had very significant right hip pain on physical exam was found to have signs of fracture on x-ray. I discussed the nava casanova's other radiographic studies with him. He was found to have signs of a humeral head fracture with neck involvement. He was treated with pain medication in the emergency department. He was significantly improved on reevaluation. I discussed the patient's condition with the on-call [facility] hospitalist. They have agreed to evaluate the patient in the emergency department for further management and disposition. The patient will likely require surgical management. I discussed this with him as well as his daughter. Triage Nursing notes reviewed. Prior medical records reviewed Vital Signs: reviewed and remarkable for elevated blood pressure. Differential diagnosis: Fracture, dislocation, contusion, intra-abdominal, pneumothorax, intrathoracic, intracranial, neurologic, compartment syndrome, rhabdomyolysis, as well as other pathologies. ER treatment provided: See below Diagnostics interpreted by me: ECG: EKG was obtained in the emergency department. My interpretation is sinus rhythm at 63 bpm. PACs were noted. Nonspecific T wave abnormalities were no yeni. This was compared to a tracing from December 28, 2017. The ectopy is new however no other significant EKG changes were noted. Cardiac Monitoring: An order was placed for continuous cardiac monitoring. The monitor shows a rate of 65 bpm with sinus rhythm. Laboratory studies: As stated above and show below. Imaging studies: See below Consultation(s): I discussed this case with Dr. Causey who [facility]. He will evaluate the patient in the emergency department for further management and disposition. 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) Surgical History H/O aorto-femoral bypass (~2009) H/O transurethral resection of prostate History of biopsy (09/23/13) History of colonoscopy Loss of teeth due to extraction Status post aortic bifurcation bypass graft History of Bypass Graft (Non-Vein) Aortic-bifemoral Status post appendectomy Status post cataract surgery Status post tonsillectomy and adenoidectomy Family History Sister Breast cancer Diabetes Father Parkinsons disease Mother Diabetes Social History Smoking Status: Never smoker Age Started Using Tobacco: 14; Age Quit Using Tobacco: 64; packs per day: 1; Hx Alcohol Use: No Hx Substance Use: No Preferred Language: Mongolian Communication Ability: Effective Visual Impairment: Limited Hearing Ability: Normal Hand Ii Tube Bender Required: No Beliefs That Will Affect Care: None marital status: Current Living Situation: Alone current occupational status: retired Feels Safe at Home: Yes Seatbelt Use: always Sunscreen Use: No Allergies Allergies Allergy/AdvReac Type Severity Reaction Status Date / Time baclofen Allergy Unknown Unknown Verified 11/18/20 08:31 clozapine Allergy Unknown unknown Verified 11/18/20 08:31 haloperidol Allergy Unknown unknown Verified 11/18/20 08:31 metoclopramide Allergy Unknown Unknown Verified 11/18/20 08:31 Phenothiazines Allergy Unknown unkonwn Verified 11/18/20 08:31 Home Meds Home Medications Medication Instructions Recorded Confirmed aspirin 81 mg tablet,delayed 81 mg PO DAILY 02/11/18 12/04/20 release (Adult Low Dose Aspirin) multivitamin 1 tab PO DAILY 02/11/18 12/04/20 brimonidine 0.2 %-timolol 0.5 % 1 drops OP BID 11/12/18 12/04/20 eye drops (Combigan) loratadine 10 mg tablet (Claritin) 10 mg PO DAILY PRN 06/11/20 12/04/20 psyllium husk 3.4 gram/5.4 gram 1 tbsp PO DAILY 06/11/20 12/04/20 oral powder (Metamucil) Previous Rx's Medication Instructions Recorded colchicine 0.6 mg tablet (Colcrys) 0.6 mg PO DAILY PRN #90 tab 05/15/19 clonidine HCl 0.2 mg tablet 0.1 mg PO BID #45 tab 11/10/20 allopurinol 100 mg tablet 100 mg PO DAILY #90 tab 11/15/20 metoprolol tartrate 25 mg tablet 25 mg PO BID #180 tab 11/15/20 pravastatin 80 mg tablet 80 mg PO HS #90 tab 11/15/20 sildenafil (pulm.hypertension) 20 See Rx Instructions PO .COMPLEX 11/15/20 mg tablet #20 tab omeprazole 20 mg capsule,delayed 20 mg PO DAILY #90 cap 11/16/20 release Results & Data (ED) Vital Signs Vital Signs - 24 hr 12/04/20 10:17 12/04/20 10:42 12/04/20 11:35 Temperature 36.7 C Temperature Source Oral Pulse Rate 70 Pulse Rate [Right Finger] Respiratory Rate 18 16 Respiratory Effort / Characteristics Respiratory Depth Blood Pressure Blood Pressure [Left Arm] 243/114 H Blood Pressure Mean [Left Arm] 157 Pulse Oximetry 94 96 90 Oxygen Delivery Method Room Air Room Air Oxygen Flow Rate Sepsis Recent Fever Within 48 Hours No Sepsis New/Unexplained Change in Mental Status No Sepsis Action Taken by Nursing No Action Required Pulse Oximetry Post Tiitration 12/04/20 11:46 12/04/20 11:51 12/04/20 12:16 Temperature Temperature Source Pulse Rate Pulse Rate [Right Finger] 70 59 L Respiratory Rate 20 18 Respiratory Effort / Characteristics Non-Labored Non-Labored Spontaneous Respiratory Depth Normal Normal Blood Pressure Blood Pressure [Left Arm] 206/100 H 199/85 H Blood Pressure Mean [Left Arm] 135 123 Pulse Oximetry 89 L 96 97 Oxygen Delivery Method Nasal Cannula Nasal Cannula Nasal Cannula Oxygen Flow Rate 2 2 2 Sepsis Recent Fever Within 48 Hours Sepsis New/Unexplained Change in Mental Status Sepsis Action Taken by Nursing Pulse Oximetry Post Tiitration 94 12/04/20 12:54 12/04/20 13:51 Temperature 36.7 C Temperature Source Oral Pulse Rate 59 L Pulse Rate [Right Finger] 58 L Respiratory Rate 20 17 Respiratory Effort / Characteristics Non-Labored Respiratory Depth Normal Blood Pressure 205/88 H Blood Pressure [Left Arm] 195/77 H Blood Pressure Mean [Left Arm] 116 Pulse Oximetry 96 Oxygen Delivery Method Nasal Cannula Nasal Cannula Oxygen Flow Rate 2 2 Sepsis Recent Fever Within 48 Hours Sepsis New/Unexplained Change in Mental Status Sepsis Action Taken by Nursing Pulse Oximetry Post Tiitration Home Medications Current Medication List: was personally reviewed by me Laboratory Data Attestation: I reviewed the patient's lab results. Result diagrams: 12/04/20 10:30 12/04/20 10:30 Lab Results 12/04/20 12/04/20 12/04/20 Range/Units 10:30 10:30 10:30 WBC 9.28 (4.8-10.8) K/uL RBC 4.76 (4.7-6.1) M/uL Hgb 15.2 (14.0-18.0) g/dL Hct 44.5 (42-52) % MCV 93.5 (80-100) fL MCH 31.9 (25-34) pg MCHC 34.2 (32-36) g/dL RDW Std Deviation 46.2 (36.4-46.3) fL RDW Coeff of Pepe 13.5 (11.5-14.5) % Plt Count 266 (130-400) K/uL MPV 10.9 H (7.4-10.4) fL Immature Gran % (Auto) 0.2 % Neut % (Auto) 67.7 % Lymph % (Auto) 19.9 % Potter % (Auto) 9.3 % Eos % (Auto) 2.7 % Baso % (Auto) 0.2 % Neut # (Auto) 6.28 (1.4-6.5) K/uL Lymph # (Auto) 1.85 (1.2-3.4) K/uL Potter # (Auto) 0.86 H (0.11-0.59) K/uL Eos # (Auto) 0.25 (0-0.5) K/uL Baso # (Auto) 0.02 (0-0.2) K/uL Immature Gran # (Auto) 0.02 (0.00-0.02) K/uL APTT 25.2 (21.0-31.0) Seconds PTT Ratio 1.0 Sodium 139 (136-145) mmol/L Potassium 4.7 (3.5-5.1) mmol/L Chloride 109 H (98-107) mmol/L Carbon Dioxide 26 (21-32) mmol/L Anion Gap 4.0 (3-11) BUN 13 (7-18) mg/dl Creatinine 1.19 (0.6-1.4) mg/dl Est Cr Clr Drug Dosing 42.2 ml/min Est GFR ( Amer) 63.3 ml/min Est GFR (Non-Af Amer) 54.6 ml/min BUN/Creatinine Ratio 10.9 (10-20) Glucose 108 H (70-99) mg/dl Calcium 9.3 (8.5-10.1) mg/dl Total Bilirubin 0.6 (0.2-1) mg/dl AST 26 (15-37) U/L ALT 25 (12-78) U/L Alkaline Phosphatase 115 (45-117) U/L Troponin I < 0.015 (0-0.045) ng/ml Total Protein 7.6 (6.4-8.2) gm/dl Albumin 4.0 (3.4-5.0) gm/dl Globulin 3.6 (2.5-4.0) gm/dl Albumin/Globulin Ratio 1.1 (0.9-2) Lipase 236 (73-393) U/L COVID-19 Eval Order SARS-CoV-2 (PCR) (Negative) 12/04/20 12/04/20 Range/Units 11:27 11:27 WBC (4.8-10.8) K/uL RBC (4.7-6.1) M/uL Hgb (14.0-18.0) g/dL Hct (42-52) % MCV (80-100) fL MCH (25-34) pg MCHC (32-36) g/dL RDW Std Deviation (36.4-46.3) fL RDW Coeff of Pepe (11.5-14.5) % Plt Count (130-400) K/uL MPV (7.4-10.4) fL Immature Gran % (Auto) % Neut % (Auto) % Lymph % (Auto) % Potter % (Auto) % Eos % (Auto) % Baso % (Auto) % Neut # (Auto) (1.4-6.5) K/uL Lymph # (Auto) (1.2-3.4) K/uL Potter # (Auto) (0.11-0.59) K/uL Eos # (Auto) (0-0.5) K/uL Baso # (Auto) (0-0.2) K/uL Immature Gran # (Auto) (0.00-0.02) K/uL APTT (21.0-31.0) Seconds PTT Ratio Sodium (136-145) mmol/L Potassium (3.5-5.1) mmol/L Chloride (98-107) mmol/L Carbon Dioxide (21-32) mmol/L Anion Gap (3-11) BUN (7-18) mg/dl Creatinine (0.6-1.4) mg/dl Est Cr Clr Drug Dosing ml/min Est GFR ( Amer) ml/min Est GFR (Non-Af Amer) ml/min BUN/Creatinine Ratio (10-20) Glucose (70-99) mg/dl Calcium (8.5-10.1) mg/dl Total Bilirubin (0.2-1) mg/dl AST (15-37) U/L ALT (12-78) U/L Alkaline Phosphatase (45-117) U/L Troponin I (0-0.045) ng/ml Total Protein (6.4-8.2) gm/dl Albumin (3.4-5.0) gm/dl Globulin (2.5-4.0) gm/dl Albumin/Globulin Ratio (0.9-2) Lipase (73-393) U/L COVID-19 Eval Order Covid19 at [facility] SARS-CoV-2 (PCR) NEGATIVE (Negative) Administered Medications Morphine Sulfate (Morphine Sulfate 4 Mg/Ml 1 Ml Carp\Vial) 4 mg IV Q30M PRN PRN Reason: Pain Stop: 12/18/20 10:17 Last Admin: 12/04/20 10:30 Dose: 4 mg Documented by: [id number] Discontinued Medications Ondansetron HCl (Ondansetron Inj 2 Mg/Ml 2 Ml Vial) 4 mg IV NOW STA Stop: 12/04/20 10:19 Last Admin: 12/04/20 10:30 Dose: 4 mg Documented by: [id number] Imaging Data Radiologist's Impression: Cervical Spine CT 12/04/20 10:16 CT OF THE CERVICAL SPINE WITHOUT CONTRAST CLINICAL HISTORY: fall COMPARISON STUDY: CT of the neck February 27, 2014. TECHNIQUE: Helical axial images of the cervical spine were obtained without IV contrast. Sagittal and coronal reconstructions were viewed. Automated exposure control was utilized for the study. A dose lowering technique was utilized adhering to the principles of ALARA. FINDINGS: Anterolisthesis of C4 on C5 is unchanged since prior neck CT and related to facet arthrosis. Vertebral body heights are maintained. No acute cervical spine fracture or subluxation is present. There is no prevertebral edema. Facet joints are intact. Luggage Repairer image demonstrates an acute proximal left humeral fracture which is better depicted on the left shoulder radiographs. Severe multilevel degenerative disc disease is noted with disc space narrowing and osteophytosis. There is severe multilevel facet arthrosis. Slight loss of height of the superior plate of T1 is also unchanged since prior CT. Emphysema is noted within visualized portions of the lung apices. Note is made of dilated debris-filled proximal esophagus. IMPRESSION: 1. No acute cervical spine fracture or subluxation. 2. Severe multilevel degenerative changes within the cervical spine. 3. Dilated, debris filled proximal esophagus, partially imaged. ACT 112: Negative or not required by law. Electronically signed by: Jm Dallas M.D. 12/04/2020 11:24 AM Chest X-Ray 12/04/20 10:16 XR chest 1V portable CLINICAL HISTORY: Chest pain. Fall. COMPARISON STUDY: Chest radiograph December 14, 2017. FINDINGS: Lung volumes are normal. There is a possible 2.5 cm right upper lobe opacity. There is no pneumothorax or pleural effusion. Cardiac size is stable. Mediastinal contours are normal. There is no evidence for pulmonary edema. The acute left humeral neck fracture is better depicted on the left shoulder radiographs. Several old left fractures are incidentally noted. Emphysema is better depicted on prior chest CT. IMPRESSION: 1. No pneumothorax. 2. 2.5 cm right upper lobe opacity. Although this could mild airspace disease or artifact, a chest CT is recommended to exclude a pulmonary nodule. 3. Emphysema. ACT 112: Positive. There are findings on this exam that require communication between the performing entity and the patient following Patient Test Result Information Act ([place] Act 112) guidelines. Electronically signed by: Jm Dallas M.D. 12/04/2020 11:[address] 12/04/20 10:16 CT OF THE HEAD WITHOUT CONTRAST CLINICAL HISTORY: fall COMPARISON STUDY: Head CT December 14, 2017. MRI of the brain December 15, 2017. TECHNIQUE: Helical axial images of the head were obtained without IV contrast. Automated exposure control was utilized for the study. A dose lowering technique was utilized adhering to the principles of ALARA. FINDINGS: No acute intracranial hemorrhage, midline shift or mass effect is present. The ventricular system is unremarkable. The basal cisterns are patent. White matter hypodensities are unchanged. 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 No extra-axial collections are present. There are no findings to suggest acute dural sinus thrombosis or acute territorial infarct. No significant calvarial abnormalities are present. Visualized portions of the sinuses and mastoid air cells are clear. Hyperdense material within the left globe is present. IMPRESSION: 1. No acute intracranial findings. No change in appearance of the brain. 2. No calvarial fracture. ACT 112: Negative or not required by law. Electronically signed by: Jm Dallas M.D. 12/04/2020 11:18 AM Hip/Pelvis X-Ray 12/04/20 10:16 XR hip RT 2V w pelvis CLINICAL HISTORY: fall COMPARISON: CT of the abdomen and pelvis February 23, 2020. FINDINGS: Sacroiliac joints and symphysis previous are intact. There is no proximal left femoral fracture. Note is made of an acute displaced right femoral neck fracture. Fracture is impacted. A nondisplaced component may extend through the greater trochanter of the right femur. IMPRESSION: Acute displaced right femoral neck fracture. Possible nondisplaced component extending through the greater trochanter. ACT 112: Negative or not required by law. Electronically signed by: Jm Dallas M.D. 12/04/2020 10:59 AM Shoulder X-Ray 12/04/20 10:16 XR shoulder LT min 2V routine CLINICAL HISTORY: fall COMPARISON: Chest radiograph December 14, 2017. FINDINGS: Note is made of an acute transverse minimally displaced impacted left humeral neck fracture. Fracture slightly extends into the humeral head with extension through the inferior aspect of the greater tuberosity. Alignment of the left acromioclavicular and glenohumeral joints is anatomic. IMPRESSION: Acute minimally displaced impacted left humeral neck fracture which extends into the humeral head. ACT 112: Negative or not required by law. Electronically signed by: Jm Dallas M.D. 12/04/2020 11:00 AM Discharge Plan Visit Data Chief Complaint: Fall Stated Complaint: FALL, R HIP & L SHOULDER PAIN ED Provider: Allan Zafar Discharge Problem: Closed fracture of right hip, Closed fracture of neck of left humerus, Fall, Head injury Patient Disposition: Being Evaluated by Hospitalist Condition: Good Discharge Instructions Interventions: ED Discharge Assessment Last Done: 12/04/20 13:51
[2020-12-04 10:45] LABS: Basophils # (auto) 0.02 K/uL (0-0.2); Basophils % (auto) 0.2 %; Eosinophils # (auto) 0.25 K/uL (0-0.5); Eosinophils % (auto) 2.7 %; Hematocrit (blood only) 44.5 % (42-52); Hemoglobin 15.2 g/dL (14.0-18.0); Immature Granulocytes # (auto) 0.02 K/uL (0.00-0.02); Immature Granulocytes % (auto) 0.2 %; Lymphocytes # (auto) 1.85 K/uL (1.2-3.4); Lymphocytes % (auto) 19.9 %; Mean Corpuscular Hemoglobin 31.9 pg (25-34); Mean Corpuscular Hgb Conc 34.2 g/dL (32-36); Mean Corpuscular Volume 93.5 fL (80-100); Mean Platelet Volume 10.9 fL (7.4-10.4); Monocytes # (auto) 0.86 K/uL (0.11-0.59); Monocytes % (auto) 9.3 %; Neutrophils # (auto) 6.28 K/uL (1.4-6.5); Neutrophils % (auto) 67.7 %; Platelet Count 266 K/uL (130-400); RDW Coefficient of Variation 13.5 % (11.5-14.5); RDW Standard Deviation 46.2 fL (36.4-46.3); Red Blood Count 4.76 M/uL (4.7-6.1); White Blood Count 9.28 K/uL (4.8-10.8)
[2020-12-04 10:58] LABS: Partial Thromboplastin Time 25.2 Seconds (21.0-31.0)
--- NOTE | 2020-12-04 11:00 | XRay Report ---
XR hip RT 2V w pelvis CLINICAL HISTORY: fall COMPARISON: CT of the abdomen and pelvis February 23, 2020. FINDINGS: Sacroiliac joints and symphysis previous are intact. There is no proximal left femoral fra cture. Note is made of an acute displaced right femoral neck fracture. Fracture is impacted. A nondis placed component may extend through the greater trochanter of the right femur. IMPRESSION: Acute displaced right femoral neck fracture. Possible nondisplaced component extending th rough the greater trochanter. ACT 112: Negative or not required by law. Electronically signed by: Jm Dallas M.D. 12/04/2020 10:59 AM
[2020-12-04 11:01] LABS: Alanine Aminotransferase 25 U/L (12-78); Aspartate Aminotransferase 26 U/L (15-37); BUN Creatinine Ratio 10.9 (10-20); Blood Urea Nitrogen 13 mg/dl (7-18); Calcium 9.3 mg/dl (8.5-10.1); Carbon Dioxide 26 mmol/L (21-32); Chloride 109 mmol/L (98-107); Creatinine Clr Calc Pharmacy 42.2 ml/min; Est GFR (African American) 63.3 ml/min; Est GFR (Non-African American) 54.6 ml/min; Glucose 108 mg/dl (70-99); Lipase 236 U/L (73-393); Potassium 4.7 mmol/L (3.5-5.1); Sodium 139 mmol/L (136-145)
--- NOTE | 2020-12-04 11:02 | XRay Report ---
XR shoulder LT min 2V routine CLINICAL HISTORY: fall COMPARISON: Chest radiograph December 14, 2017. FINDINGS: Note is made of an acute transverse minimally displaced impacted left humeral neck fractur e. Fracture slightly extends into the humeral head with extension through the inferior aspect of the greater tuberosity. Alignment of the left acromioclavicular and glenohumeral joints is anatomic. IMPRESSION: Acute minimally displaced impacted left humeral neck fracture which extends into the chiquita ral head. ACT 112: Negative or not required by law. Electronically signed by: Jm Dallas M.D. 12/04/2020 11:00 AM
[2020-12-04 11:06] LABS: Albumin Globulin Ratio 1.1 (0.9-2); Alkaline Phosphatase 115 U/L (45-117); Bilirubin,Total 0.6 mg/dl (0.2-1); Globulin 3.6 gm/dl (2.5-4.0); Total Protein 7.6 gm/dl (6.4-8.2); Troponin I < 0.015 ng/ml (0-0.045)
--- NOTE | 2020-12-04 11:06 | XRay Report ---
XR chest 1V portable CLINICAL HISTORY: Chest pain. Fall. COMPARISON STUDY: Chest radiograph December 14, 2017. FINDINGS: Lung volumes are normal. There is a possible 2.5 cm right upper lobe opacity. There is no p neumothorax or pleural effusion. Cardiac size is stable. Mediastinal contours are normal. There is no evidence for pulmonary edema. The acute left humeral neck fracture is better depicted on the left sh oulder radiographs. Several old left fractures are incidentally noted. Emphysema is better depicted o n prior chest CT. IMPRESSION: 1. No pneumothorax. 2. 2.5 cm right upper lobe opacity. Although this could mild airspace disease or artifact, a chest CT is recommended to exclude a pulmonary nodule. 3. Emphysema. ACT 112: Positive. There are findings on this exam that require communication between the performing entity and the patient following Patient Test Result Information Act ([place] Act 112) guidelines. Electronically signed by: Jm Dallas M.D. 12/04/2020 11:04 AM
--- NOTE | 2020-12-04 11:19 | CT Scan Report ---
CT OF THE HEAD WITHOUT CONTRAST CLINICAL HISTORY: fall COMPARISON STUDY: Head CT December 14, 2017. MRI of the brain December 15, 2017. TECHNIQUE: Helical axial images of the head were obtained without IV contrast. Automated exposure con trol was utilized for the study. A dose lowering technique was utilized adhering to the principles o f ALARA. FINDINGS: No acute intracranial hemorrhage, midline shift or mass effect is present. The ventricular system is unremarkable. The basal cisterns are patent. White matter hypodensities are unchanged. An o ld infarct within the right external capsule is again noted. No extra-axial collections are present. There are no findings to suggest acute dural sinus thrombosis or acute territorial infarct. No signif icant calvarial abnormalities are present. Visualized portions of the sinuses and mastoid air cells a re clear. Hyperdense material within the left globe is present. IMPRESSION: 1. No acute intracranial findings. No change in appearance of the brain. 2. No calvarial fracture. ACT 112: Negative or not required by law. Electronically signed by: Jm Dallas M.D. 12/04/2020 11:18 AM
--- NOTE | 2020-12-04 11:25 | CT Scan Report ---
CT OF THE CERVICAL SPINE WITHOUT CONTRAST CLINICAL HISTORY: fall COMPARISON STUDY: CT of the neck February 27, 2014. TECHNIQUE: Helical axial images of the cervical spine were obtained without IV contrast. Sagittal a nd coronal reconstructions were viewed. Automated exposure control was utilized for the study. A do se lowering technique was utilized adhering to the principles of ALARA. FINDINGS: Anterolisthesis of C4 on C5 is unchanged since prior neck CT and related to facet arthrosis . Vertebral body heights are maintained. No acute cervical spine fracture or subluxation is present. There is no prevertebral edema. Facet joints are intact. 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 Severe multilevel de generative disc disease is noted with disc space narrowing and osteophytosis. There is severe multile gabriela facet arthrosis. Slight loss of height of the superior plate of T1 is also unchanged since prior CT. Emphysema is noted within visualized portions of the lung apices. Note is made of dilated debris- filled proximal esophagus. IMPRESSION: 1. No acute cervical spine fracture or subluxation. 2. Severe multilevel degenerative changes within the cervical spine. 3. Dilated, debris filled proximal esophagus, partially imaged. ACT 112: Negative or not required by law. Electronically signed by: Jm Dallas M.D. 12/04/2020 11:24 AM
--- NOTE | 2020-12-04 13:18 | History & Physical Report ---
Date of Service December 04, 2020 Assessment & Plan (1) Gout: (2) Chronic kidney disease, stage III (moderate): (3) Lumbar spinal stenosis: (4) Hypertension: (5) Hypercholesterolemia: (6) Peripheral vascular disease: (7) Closed right hip fracture: (8) Shoulder fracture, left: Plan: 85 y/o M Hx gout, HTN, HLD, PAD, CKD III. The pt suffered a mechanical fall striking at points his head, L shoulder/arm and R hip. He denies preceding symptoms such as CP, palpitations or dizziness, but does state that he has chronic issues with his balance. He did not lose consciousness. Imaging in the ER confirmed a displaced impacted left humeral neck fracture in addition to a displaced right femoral neck fracture. Labs were unremarkable. 1) Displaced fractures - L humeral, R femoral - pt is pending ortho evaluation. I do not discern any significant cardiovascular risk although he does have PAD and therefore likely a degree of CAD. Cont statin, beta juan perioperatively. Clonidine can also be continued as well to avoid reflex HTN. IVF, pain control provided. 2) CKD III - maintain adequate hydration - renal function is at baseline 3) HTN - cont metoprolol, clonidine 4) HLD - cont statin 5) Gout - cont Allopurinol Full code - SCDs Total time for this admit including review of labs, meds, imaging, records - discussion with pt and ER attending - 40 min History of Present Illness Chief Complaint: Fall - shoulder and hip pain Primary Care Provider: Hieu Lopes MD 85 y/o M Hx gout, HTN, HLD, PAD, CKD III. The pt suffered a mechanical fall striking at points his head, L shoulder/arm and R hip. He denies preceding symptoms such as CP, palpitations or dizziness, but does state that he has chronic issues with his balance. He did not lose consciousness. Imaging in the ER confirmed a displaced impacted left humeral neck fracture in addition to a displaced right femoral neck fracture. Labs were unremarkable. 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 Quit drinking 1977. Family: Noncontributory due to pt age Allergies Allergy/AdvReac Type Severity Reaction Status Date / Time baclofen Allergy Unknown Unknown Verified 11/18/20 08:31 clozapine Allergy Unknown unknown Verified 11/18/20 08:31 haloperidol Allergy Unknown unknown Verified 11/18/20 08:31 metoclopramide Allergy Unknown Unknown Verified 11/18/20 08:31 Phenothiazines Allergy Unknown unkonwn Verified 11/18/20 08:31 Home Medications Medication Instructions Recorded Confirmed Type aspirin 81 mg tablet,delayed 81 mg PO DAILY 02/11/18 12/04/20 History release (Adult Low Dose Aspirin) multivitamin 1 tab PO DAILY 02/11/18 12/04/20 History brimonidine 0.2 %-timolol 0.5 % 1 drops OP BID 11/12/18 12/04/20 History eye drops (Combigan) colchicine 0.6 mg tablet (Colcrys) 0.6 mg PO DAILY PRN #90 tab 05/15/19 12/04/20 Rx loratadine 10 mg tablet (Claritin) 10 mg PO DAILY PRN 06/11/20 12/04/20 History psyllium husk 3.4 gram/5.4 gram 1 tbsp PO DAILY 06/11/20 12/04/20 History oral powder (Metamucil) clonidine HCl 0.2 mg tablet 0.1 mg PO BID #45 tab 11/10/20 12/04/20 Rx allopurinol 100 mg tablet 100 mg PO DAILY #90 tab 11/15/20 12/04/20 Rx metoprolol tartrate 25 mg tablet 25 mg PO BID #180 tab 11/15/20 12/04/20 Rx pravastatin 80 mg tablet 80 mg PO HS #90 tab 11/15/20 12/04/20 Rx sildenafil (pulm.hypertension) 20 See Rx Instructions PO .COMPLEX 11/15/20 12/04/20 Rx mg tablet #20 tab omeprazole 20 mg capsule,delayed 20 mg PO DAILY #90 cap 11/16/20 12/04/20 Rx release Past Med/Surg History Medical History (Updated 12/04/20 @ 14:13 by Derick Causey MD) Acid reflux Benign hypertension with chronic kidney disease, stage III Benign prostatic hypertrophy Chronic kidney disease, stage III (moderate) Diastasis of muscle Glaucoma Gout Gouty arthritis History of malignant neoplasm of oropharynx Hypercholesterolemia Hypertension Impaired fasting glucose Lumbar spinal stenosis Peripheral vascular disease Sacroiliitis Sciatica of left side Skin lesion of left ear 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) Surgical History H/O aorto-femoral bypass (~2009) H/O transurethral resection of prostate History of biopsy (09/23/13) History of colonoscopy Loss of teeth due to extraction Status post aortic bifurcation bypass graft History of Bypass Graft (Non-Vein) Aortic-bifemoral Status post appendectomy Status post cataract surgery Status post tonsillectomy and adenoidectomy Family History Sister Breast cancer Diabetes Father Parkinsons disease Mother Diabetes Social History Smoking Status: Never smoker Age Started Using Tobacco: 14; Age Quit Using Tobacco: 64; packs per day: 1; Hx Alcohol Use: No Hx Substance Use: No Preferred Language: Somali Communication Ability: Effective Visual Impairment: Limited Hearing Ability: Normal Administrative Library Assistant Required: No Beliefs That Will Affect Care: None marital status: Current Living Situation: Alone current occupational status: retired Feels Safe at Home: Yes Seatbelt Use: always Sunscreen Use: No Review of Systems Review of Systems: Gen: Denies fevers, night sweats, rigors, fatigue, malaise, weight loss/gain ENT: Denies congestion, throat pain, hearing loss Eyes: Denies acute visual changes CV: Denies CP, palpitations Pulmonary: Denies SOB, cough, wheezing GI: Denies N/V, diarrhea, constipation Neuro: Denies acute or unilateral weakness, acute gait impairment, headache or acute visual changes Musculoskeletal: Pain is more severe in L shoulder than R hip Endocrine: Denies polydipsia, polyuria Skin: Denies acute rashes or ulcers Physical Exam Physical Exam: General: Very pleasant, elderly M, AAO x 3, no distress ENT: No erythema or exudates, no thrush Eyes: PADMA, EOMI Head and neck: Normocephalic, atraumatic, No JVD, neck is supple. Chest/heart: Nontender, S1,2, RRR, no murmurs, no gallops Lungs: CTAB, no wheezing or crackles Abdomen: Nontender, nondistended, BS+ Neuro: AAO x 3, speech is clear, no unilateral weakness or loss of sensation, coordination intact Musculoskeletal: Did not mobilize affected extremities - pulses are +, the RLE is shortened but not rotated Skin: No acute rashes or ulcers Extremities: No clubbing, cyanosis, edema Results & Data Results & Data ([facility]) Vital Signs (Past 12 Hours) Vital Signs Temp Pulse Pulse Resp BP Pulse Ox 12/04/20 12:54 58 L 20 195/77 H 96 12/04/20 12:16 59 L 18 199/85 H 97 12/04/20 11:51 70 20 206/100 H 96 12/04/20 11:46 89 L 12/04/20 11:35 16 243/114 H 90 12/04/20 10:42 96 12/04/20 10:17 98.1 F 70 18 94 Diagnostic Findings XR Shoulder: Acute minimally displaced impacted left humeral neck fracture which extends into the humeral head. XR hip: Acute displaced right femoral neck fracture. EKG: sinus, PACS, no evidence of active ischemia Code Status & VTE Plan VTE Prophylaxis Plan VTE Prophylaxis will be ordered: Yes PG Care Time/CCT Total # of Minutes Spent Total Time Spent with Patient: Total time spent is greater than 50% in coordination of care (as documented) at patient's floor/unit and/or counseling patient: Coding Level of Care Code 95380 Initial Inpt Care Lvl 3 Diagnoses Gout M10.9 Chronic kidney disease, stage III (moderate) N18.3 Lumbar spinal stenosis M48.061 Hypertension I10 Hypercholesterolemia E78.00 Peripheral vascular disease I73.9 Closed right hip fracture S72.001A Shoulder fracture, left S42.92XA
[2020-12-04] MEDS ORDERED: bisacodyL 10 MG SUPP PR PRN (14:32)
[2020-12-04] MEDS ORDERED: HYDROmorphone INJ 0.5 MG/0.5 ML SYR IV PRN (14:32)
[2020-12-04] MEDS ORDERED: NALOXONE HCL 0.4 MG/1 ML VIAL/CARP IV PRN (14:32)
[2020-12-04] MEDS ORDERED: MAGNESIUM HYDROXIDE SUSP 30 ML UDC PO PRN (14:32)
[2020-12-04] MEDS ORDERED: ONDANSETRON INJ 2 MG/ML 2 ML VIAL IV PRN (14:32)
[2020-12-04] MEDS ORDERED: HYDROmorphone INJ 0.5 MG/0.5 ML SYR ONE (14:46)
[2020-12-04] MEDS: D5W AND LACTATED RINGERS 1,000 ML IV SCH (14:53)
[2020-12-04] MEDS ORDERED: hydrALAZINE HCL 20 MG/ML VIAL IV ONE (16:19)
[2020-12-04] MEDS: cloNIDine HCL 0.1 MG TAB PO SCH ×2 (17:32→17:56)
--- NOTE | 2020-12-04 17:48 | Orthopedic Consultation ---
Date of Service December 04, 2020 Assessment & Plan (1) Closed fracture of right hip: We discussed treatment plans and options with the patient today. Were going to proceed with a right cemented bipolar hip arthroplasty tomorrow. The risks and benefits of this procedure explained to the patient in depth and include but not limited to DVT PE infection fracture leg length inequality nerve palsy dislocation need for blood transfusion. He desires to proceed. (2) Closed fracture of neck of left humerus: We will get him a sling for his left arm. The left shoulder does not require surgical treatment and should do well with nonoperative management. Was to follow this over time to make sure further no displacement. Unfortunate this is got a make a rehab difficult due to hisHip fracture and a requirement for assistance and ambulation. Also begin DVT prophylaxis include thigh teds and SCDs. Likely use aspirin postoperatively. History of Present Illness Reason for Consultation: .Right hip fracture Left proximal humerus fracture Requesting Physician: . Attending Physician: Derick Causey MD .Patient is an 85-year-old [id number] gentleman who lives by himself in [place] who sustained a fall earlier this morning. He was out of sports with some coffee and, lost his balance and fell. He is an ambulator with use of a cane normally. No pre-existing hip pain. He fell on his right hip and was brought to emergency room where x-rays revealed a displaced femoral neck fracture. Were consulted for evaluation.He also injured his left shoulder. His shoulders actually cause more pain right now lying in bed that his hip.Hip pain is all groin pain. Allergies Allergy/AdvReac Type Severity Reaction Status Date / Time baclofen Allergy Unknown Unknown Verified 11/18/20 08:31 clozapine Allergy Unknown unknown Verified 11/18/20 08:31 haloperidol Allergy Unknown unknown Verified 11/18/20 08:31 metoclopramide Allergy Unknown Unknown Verified 11/18/20 08:31 Phenothiazines Allergy Unknown unkonwn Verified 11/18/20 08:31 Home Medications Medication Instructions Recorded Confirmed Type aspirin 81 mg tablet,delayed 81 mg PO DAILY 02/11/18 12/04/20 History release (Adult Low Dose Aspirin) multivitamin 1 tab PO DAILY 02/11/18 12/04/20 History brimonidine 0.2 %-timolol 0.5 % 1 drops OP BID 11/12/18 12/04/20 History eye drops (Combigan) colchicine 0.6 mg tablet (Colcrys) 0.6 mg PO DAILY PRN #90 tab 05/15/19 12/04/20 Rx loratadine 10 mg tablet (Claritin) 10 mg PO DAILY PRN 06/11/20 12/04/20 History psyllium husk 3.4 gram/5.4 gram 1 tbsp PO DAILY 06/11/20 12/04/20 History oral powder (Metamucil) clonidine HCl 0.2 mg tablet 0.1 mg PO BID #45 tab 11/10/20 12/04/20 Rx allopurinol 100 mg tablet 100 mg PO DAILY #90 tab 11/15/20 12/04/20 Rx metoprolol tartrate 25 mg tablet 25 mg PO BID #180 tab 11/15/20 12/04/20 Rx pravastatin 80 mg tablet 80 mg PO HS #90 tab 11/15/20 12/04/20 Rx sildenafil (pulm.hypertension) 20 See Rx Instructions PO .COMPLEX 11/15/20 12/04/20 Rx mg tablet #20 tab omeprazole 20 mg capsule,delayed 20 mg PO DAILY #90 cap 11/16/20 12/04/20 Rx release Past Med/Surg History Medical History Acid reflux Benign hypertension with chronic kidney disease, stage III Benign prostatic hypertrophy Chronic kidney disease, stage III (moderate) Diastasis of muscle Glaucoma Gout Gouty arthritis History of malignant neoplasm of oropharynx Hypercholesterolemia Hypertension Impaired fasting glucose Lumbar spinal stenosis Peripheral vascular disease Sacroiliitis Sciatica of left side Skin lesion of left ear 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) Surgical History H/O aorto-femoral bypass (~2009) H/O transurethral resection of prostate History of biopsy (09/23/13) History of colonoscopy Loss of teeth due to extraction Status post aortic bifurcation bypass graft History of Bypass Graft (Non-Vein) Aortic-bifemoral Status post appendectomy Status post cataract surgery Status post tonsillectomy and adenoidectomy Family History Sister Breast cancer Diabetes Father Parkinsons disease Mother Diabetes Social History Smoking Status: Former smoker Age Started Using Tobacco: 14; Age Quit Using Tobacco: 64; packs per day: 1; Second Hand Exposure: No; Hx Alcohol Use: No Hx Substance Use: No Preferred Language: Japanese Communication Ability: Effective Visual Impairment: Limited Hearing Ability: Normal Technical Laboratory Asst Required: No Beliefs That Will Affect Care: None marital status: Current Living Situation: Alone Current Living Situation Comment: Lives in own home and can live on one floor current occupational status: retired Feels Safe at Home: Yes Seatbelt Use: always Sunscreen Use: No Assistive Devices: Cane Review of Systems All systems reviewed & are unremarkable except as noted in HPI & below.Patient does report that he did bump his head. He denies any neck pain. He did have a CT of his head as well as his neck which was negative. Physical Exam .Musculoskeletal exam reveals pleasant elderly male. He is lying in bed looks pretty comfortable. Examination of the right upper extremity feels no pain or deformity or swelling. He is got full motion. Examination left upper extremity feels no visible deformity. He does have pain around the shoulder girdle. They can flex extend his wrist and elbow appropriately.Pain with any attempt of shoulder motion. Examination of the lower extremities reveals the right leg to be slightly shortened and externally rotated. Days got pain with any type of hip motion. Skin abrasion on the front of his right knee. No knee effusion. He is neurologically intact. He is got painless hip and knee motion on the left side. No visible deformity. Results & Data Results & Data Laboratory Results . Diagnostic Findings . X-rays of the right hip and pelvis reveal a displaced femoral neck fracture. No Significant underlying hip arthritis. X-rays of the left shoulder reveal impacted transverse fracture through the humeral neck. No significant displacement. PG Care Time/CCT Total # of Minutes Spent Total Time Spent with Patient: Total time spent is greater than 50% in coordination of care (as documented) at patient's floor/unit and/or counseling patient: Coding Level of Care Code 89842 Office/OBS Consult Lvl 5 Diagnoses Closed fracture of right hip S72.001A Encounter type: initial encounter Closed fracture of neck of left humerus S42.212A Encounter type: initial encounter (1) Closed fracture of right hip Encounter type: initial encounter Qualified Code(s): S72.001A - Fracture of unspecified part of neck of right femur, initial encounter for closed fracture (2) Closed fracture of neck of left humerus Encounter type: initial encounter Qualified Code(s): S42.212A - Unspecified displaced fracture of surgical neck of left humerus, initial encounter for closed fracture
[2020-12-04] MEDS: HYDROmorphone INJ 0.5 MG/0.5 ML SYR IV PRN (18:03)
[2020-12-04] MEDS: METOPROLOL TARTRATE 25 MG TAB PO SCH (22:18)
[2020-12-04] MEDS: PRAVASTATIN SOD 40 MG TAB PO SCH (22:18)
[2020-12-04] MEDS: DOCUSATE SODIUM/SENNA 50/8.6MG TAB PO SCH ×2 (22:19→22:22)
[2020-12-05] MEDS: D5W AND LACTATED RINGERS 1,000 ML IV SCH (03:14)
[2020-12-05] MEDS: HYDROmorphone INJ 0.5 MG/0.5 ML SYR IV PRN (03:18)
--- NOTE | 2020-12-05 07:15 | History & Physical Bridge Note ---
Date of Service December 05, 2020 History & Physical Bridge Note I have examined the patient, reviewed the History & Physical and in the interval since the performance of the History & Physical I have noted the following changes of clinical significance: no changes noted
--- NOTE | 2020-12-05 07:23 | Anesthesiology Consultation ---
Date of Service December 05, 2020 Assessment & Plan Chart Review Chart Review: Acceptable Risk for Surgery and Patient NOT seen in Pre Admission Testing Consults Requested none ASA ASA4 Proposed Anesthesia Anesthesia Type: General Anesthesia Line Insertion: Arterial line Risk / Benefits Reviewed With: PT / POA / Parent / Guardian, Accepts Plan and Informed Consent Obtained History Surgery Operation Date: 12/05/20 13:00 Proposed Procedures p Bipolar Hip Prosthesis(Right) - Jaspreet Valencia MD Height/Weight Height: 5 ft 5 in Weight: 70 kg Allergies Allergy/AdvReac Type Severity Reaction Status Date / Time baclofen Allergy Unknown Unknown Verified 11/18/20 08:31 clozapine Allergy Unknown unknown Verified 11/18/20 08:31 haloperidol Allergy Unknown unknown Verified 11/18/20 08:31 metoclopramide Allergy Unknown Unknown Verified 11/18/20 08:31 Phenothiazines Allergy Unknown unkonwn Verified 11/18/20 08:31 Medications Home Medications Medication Instructions Recorded Confirmed Last Taken aspirin 81 mg tablet,delayed 81 mg PO DAILY 02/11/18 12/04/20 02/23/20 release (Adult Low Dose Aspirin) multivitamin 1 tab PO DAILY 02/11/18 12/04/20 02/23/20 brimonidine 0.2 %-timolol 0.5 % 1 drops OP BID 11/12/18 12/04/20 02/23/20 08:00 eye drops (Combigan) colchicine 0.6 mg tablet (Colcrys) 0.6 mg PO DAILY PRN #90 tab 05/15/19 12/04/20 Unknown loratadine 10 mg tablet (Claritin) 10 mg PO DAILY PRN 06/11/20 12/04/20 Unknown psyllium husk 3.4 gram/5.4 gram 1 tbsp PO DAILY 06/11/20 12/04/20 Unknown oral powder (Metamucil) clonidine HCl 0.2 mg tablet 0.1 mg PO BID #45 tab 11/10/20 12/04/20 Unknown allopurinol 100 mg tablet 100 mg PO DAILY #90 tab 11/15/20 12/04/20 Unknown metoprolol tartrate 25 mg tablet 25 mg PO BID #180 tab 11/15/20 12/04/20 Unknown pravastatin 80 mg tablet 80 mg PO HS #90 tab 07/05/21 07/24/21 Unknown sildenafil (pulm.hypertension) 20 See Rx Instructions PO .COMPLEX 11/15/20 12/04/20 Unknown mg tablet #20 tab omeprazole 20 mg capsule,delayed 20 mg PO DAILY #90 cap 11/16/20 12/04/20 Unknown release Active Medications Generic Name Dose Route Start Last Admin Trade Name Freq PRN Reason Stop Dose Admin Clonidine HCl 0.1 mg 12/04/20 21:00 12/04/20 17:56 Clonidine Hcl 0.1 Mg Tab PO 01/03/21 20:59 0.1 mg BID SHERLYN Administration Hydromorphone HCl 0.25 mg 12/04/20 14:32 12/04/20 23:33 Hydromorphone Inj 0.5 Mg/0.5 Ml Syr IV 12/18/20 14:31 0.25 mg Q3H PRN Administration Pain (1,2,3,4,5) & Pre PT Hydromorphone HCl 0.5 mg 12/04/20 14:32 12/05/20 03:18 Hydromorphone Inj 0.5 Mg/0.5 Ml Syr IV 12/18/20 14:31 0.5 mg Q3H PRN Administration Pain (6,7,8,9,10) Dextrose/Lactated Ringer's 1,000 mls @ 80 mls/hr 12/04/20 13:30 12/05/20 03:14 D5w And Lactated Ringers IV 12/05/20 14:29 80 mls/hr .[id number] SHERLYN Administration Metoprolol Tartrate 25 mg 12/04/20 21:00 12/04/20 22:18 Metoprolol Tartrate 25 Mg Tab PO 01/03/21 20:59 25 mg BID SHERLYN Administration Miscellaneous 1 ea 12/04/20 16:00 12/04/20 23:26 Brimonidine-Timolol [Combigan] 0.2-0.5 % Drops ~ Order Awaiting Action N/A 01/03/21 15:59 Not Given QS SHERLYN Pravastatin Sodium 80 mg 12/04/20 21:00 12/04/20 22:18 Pravastatin Sod 40 Mg Tab PO 01/03/21 20:59 80 mg HS SHERLYN Administration Senna/Docusate Sodium 2 tab 12/04/20 21:00 07/24/21 22:22 Docusate Sodium/Senna 50/8.6mg Tab PO 01/03/21 20:59 Not Given HS SHERLYN NPO Date Last Intake of Fluids: 12/04/20 Time Last Intake of Fluids: 18:00 Date Last Intake of Solids: 12/04/20 Time Last Intake of Solids: 10:00 Past Medical History Medical History Acid reflux Benign hypertension with chronic kidney disease, stage III Benign prostatic hypertrophy Chronic kidney disease, stage III (moderate) Diastasis of muscle Glaucoma Gout Gouty arthritis History of malignant neoplasm of oropharynx Hypercholesterolemia Hypertension Impaired fasting glucose Lumbar spinal stenosis Peripheral vascular disease Sacroiliitis Sciatica of left side Skin lesion of left ear 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) Exercise / Class Metabolic Activity III < 4 Walking/Shop/Light housework (cane) Past Family History Family History Sister Breast cancer Diabetes Father Parkinsons disease Mother Diabetes Past Surgical History Surgical History H/O aorto-femoral bypass (~2009) H/O transurethral resection of prostate History of biopsy (09/23/13) History of colonoscopy Loss of teeth due to extraction Status post aortic bifurcation bypass graft History of Bypass Graft (Non-Vein) Aortic-bifemoral Status post appendectomy Status post cataract surgery Status post tonsillectomy and adenoidectomy Past Anesthesia History No Hx of Anesthesia Complications History of PONV No Hx of PONV and No Hx of Motion Sickness Social History Smoking Status: Former smoker tobacco type: cigarettes Do You Dip or Chew Tobacco: No Hx Alcohol Use: No Alcohol Intake Frequency Comment: stopped drinking in 1977 Hx Substance Use: No Review of Systems no chest pain or sob, no cough or fever Physical Exam Vital Signs Last Vital Signs Temp 36.8 C 12/04/20 22:04 Pulse 80 12/04/20 23:29 Resp 20 12/04/20 22:04 BP 198/75 H 12/04/20 23:29 Pulse Ox 93 12/04/20 22:04 ENMT Mouth: + edentulous; no TMJ abnormality Thyromental Distance: > or= 3.5 Finger Breadths Mallampati Class: II Neck normal visual inspection Respiratory normal respiratory effort Auscultation: lungs clear to auscultation bilaterally Cardiovascular Rate/Rhythm: regular rate and regular rhythm Musculoskeletal Spine: no pain with cervical ROM Extremities: extremities normal to inspection (left arm in sling, right hip fx) Neurologic moves all extremities Psychiatric Orientation: alert and oriented x 3 Testing Laboratory Results 12/04/20 10:30 12/04/20 10:30 APTT 25.2 Seconds (21.0-31.0) 12/04/20 10:30 Blood Type O Negative 12/04/20 15:32 Antibody Screen NEGATIVE 12/04/20 15:32 Electrocardiogram Date: 12/04/20 Findings: + NSST changes SR with PACs, rate 63 Chest X-Ray Date: 12/04/20 XR chest 1V portable CLINICAL HISTORY: Chest pain. Fall. COMPARISON STUDY: Chest radiograph December 14, 2017. FINDINGS: Lung volumes are normal. There is a possible 2.5 cm right upper lobe opacity. There is no pneumothorax or pleural effusion. Cardiac size is stable. Mediastinal contours are normal. There is no evidence for pulmonary edema. The acute left humeral neck fracture is better depicted on the left shoulder radiographs. Several old left fractures are incidentally noted. Emphysema is better depicted on prior chest CT. IMPRESSION: 1. No pneumothorax. 2. 2.5 cm right upper lobe opacity. Although this could mild airspace disease or artifact, a chest CT is recommended to exclude a pulmonary nodule. 3. Emphysema. ACT 112: Positive. There are findings on this exam that require communication between the performing entity and the patient following Patient Test Result Information Act ([place] Act 112) guidelines. Electronically signed by: Jm Dallas M.D. 12/04/2020 11:04 AM Dictated: 12/04/20 1100Transcribed: 12/04/20 1101 Echocardiogram Date: 12/15/17 borderline LUIS E, no LVOT obstruction, mild pulmonary HTN Other Testing CT OF THE HEAD WITHOUT CONTRAST CLINICAL HISTORY: fall COMPARISON STUDY: Head CT December 14, 2017. MRI of the brain December 15, 2017. TECHNIQUE: Helical axial images of the head were obtained without IV contrast. Automated exposure control was utilized for the study. A dose lowering technique was utilized adhering to the principles of ALARA. FINDINGS: No acute intracranial hemorrhage, midline shift or mass effect is present. The ventricular system is unremarkable. The basal cisterns are patent. White matter hypodensities are unchanged. 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 No extra-axial collections are present. There are no findings to suggest acute dural sinus thrombosis or acute territorial infarct. No significant calvarial abnormalities are present. Visualized portions of the sinuses and mastoid air cells are clear. Hyperdense material within the left globe is present. IMPRESSION: 1. No acute intracranial findings. No change in appearance of the brain. 2. No calvarial fracture. ACT 112: Negative or not required by law. Electronically signed by: Jm Dallas M.D. 12/04/2020 11:18 AM Dictated: 12/04/20 1115Transcribed: 12/04/20 1115
[2020-12-05] MEDS ORDERED: THROMBIN FOR SOLN 20000 UNIT KIT ONE (07:27)
[2020-12-05] MEDS ORDERED: BUPIVACAINE 0.5 % 5 MG/1 ML MPF 30ML VIAL ONE (07:27)
[2020-12-05] MEDS ORDERED: ONDANSETRON INJ 2 MG/ML 2 ML VIAL IV PRN (07:39)
[2020-12-05] MEDS ORDERED: ATROPINE SULFATE 0.1 MG/ML 10ML SYR IV PRN (07:39)
[2020-12-05] MEDS ORDERED: LABETALOL HCL IV 5 MG/ML 20ML IV PRN (07:39)
[2020-12-05] MEDS ORDERED: ePHEDrine sulfate 50 MG/ML AMP IV PRN (07:39)
[2020-12-05] MEDS ORDERED: HYDROmorphone INJ 1 MG/ML SYRINGE IV PRN (07:39)
[2020-12-05] MEDS ORDERED: fentaNYL citrate 100 MCG/2 ML VIAL IV PRN (07:39)
[2020-12-05] MEDS ORDERED: PHENYLEPHRINE 100MCG/ML 5ML SYR IV PRN (07:39)
[2020-12-05] MEDS ORDERED: ceFAZolin 2000MG 2,000 MG/15 ML SYR IV ONE (07:41)
[2020-12-05] MEDS ORDERED: ONDANSETRON INJ 2 MG/ML 2 ML VIAL ONE (07:45)
[2020-12-05] MEDS ORDERED: fentaNYL citrate 100 MCG/2 ML VIAL ONE (07:45)
[2020-12-05] MEDS ORDERED: PROPOFOL IV EMULSION 10 MG/ML 20 ML VIAL IV ONE (07:45)
[2020-12-05] MEDS ORDERED: LIDOCAINE 2% 2 ML VIAL/AMP(20MG/ML) INFIL ONE (07:45)
[2020-12-05] MEDS ORDERED: ROCURONIUM BROMIDE 10 MG/ML 5 ML VIAL IV ONE (07:45)
[2020-12-05] MEDS ORDERED: BUPIVACAINE/EPINEPHRINE 0.5% MPF 1:200,000 30 ML VIAL ONE (07:45)
[2020-12-05] MEDS ORDERED: PHENYLEPHRINE 100MCG/ML 5ML SYR ONE (08:00)
[2020-12-05] MEDS ORDERED: PHENYLEPHRINE HCL 10 MG/ML VIAL ONE (08:00)
[2020-12-05] MEDS ORDERED: NEOSTIGMINE METHYLSULFATE 1 MG/ML 10ML VIAL ONE (09:32)
[2020-12-05] MEDS ORDERED: GLYCOPYRROLATE 0.2 MG/ML VIAL ONE (09:32)
[2020-12-05] MEDS ORDERED: ESMOLOL HCL INJ 10 MG/ML 10ML VIAL IV ONE (09:32)
[2020-12-05] MEDS ORDERED: LABETALOL HCL IV 5 MG/ML 20ML IV ONE ×2 (09:40→10:04)
--- NOTE | 2020-12-05 09:44 | Operative Report ---
Post Operative Report Pre & Post Diagnosis Operation Date: 12/05/20 13:00 Pre-Op Diagnosis: Closed fracture of right hip Post-Op Diagnosis: Closed fracture of right hip I identified the patient and participated in the time-out.: Yes Procedure Operation Date: 12/05/20 13:00 Actual Procedures p Bipolar Hip Prosthesis(Right) - Jaspreet Valencia MD Surgeon Jaspreet Valencia MD Research Nurse Practitioner YOAL Luong Estimated Blood Loss 200 Findings Consistent with Post-Op Diagnosis Operative findings revealed a comminuted right femoral neck fracture. There was some fracture extension into the greater trochanter. No second hip arthritis. Fluids 1000 cc Specimens Right femoral head sent for pathology. Anesthesia Type General Complications none Disposition Accompanied Patient To Recovery: Yes Indications Patient is 85-year-old gentleman who lives by himself who sustained a mechanical fall yesterday. He was unable to ambulate afterwards. He was brought to emergency room where x-rays showed a right displaced femoral neck fracture with some comminution along with a left proximal humerus fracture. Patient indicated for surgical treatment. Is been medically optimized by the medicine service. Description of Procedure Operative implants consisted of: 1. Linda size 12 LD fracture a cemented fracture stem. 2. 50 mm bipolar shell and liner. 3. 28 mm/+3.5 metal head 4. 11 mm distal centralizer. 5. Large cement restrictor. The patient was taken to the operating, identified, and placed on the operating table supine position but all contractors were properly padded. IV antibiotics tried by anesthesia team. General anesthetic was implemented. The patient was then placed in the left lateral decubitus position. An axillary roll was placed. Great care was taken in positioning the left shoulder due to his fracture. A Stulberg hip positioner was used for positioning. The right hip and leg were then prepped and draped in usual sterile fashion. A posterior lateral approach to the right hip was then performed to a curvilinear incision centered over the greater trochanter. Sharp dissection Through subcutaneous is down to the IT band gluteal fascia the IT band gluteal fascia incised longitudinally in line with skin incision. There was a lot of hemorrhage in the bursa and the posterior hip external rotators. I then very carefully dissected posteriorly taking great care to protect the sciatic nerve at all times. Posterior capsulotomy was then performed leaving a T type incision for later repair. Hip was internally rotated. Femoral neck osteotomy cut was made at the base of the fracture which was fairly low on the neck. The femoral neck was removed. I then had to remove a lot of the remaining neck as well as some of the head piecemeal and then remove the head. The acetabular was sized to a size 50. Attention drawn the femur. The proximal femur was entered with a cookie-cutter followed by canal finder and lateralizing reamer. I then broached up to a 13. I could not quite get the 14 broach down so we distance is elected to use a 13. I trialed the hip and I thought the +3.5 neck length recreated soft tissue tension appropriately, it was fully stable IN full extension and external rotation and flexion to 90 degrees internal rotation over 50 degrees and the leg lengths seemed clinically appropriate and equal. I elect to place these implants. All trial implants were removed. A large cement restrictor was placed down the IM canal. The canal was irrigated and dried. A double batch Palacos G cement was mixed and injected in the canal. A 12 LD fracture femoral stem was then placed in about 15 degrees of anteversion. It was held until cement hardened. I then placed a +3.5/28 mm head and a 50 mm bipolar shell and liner. Hip was located once again found to be stable. Attention drawn toward closing. The wounds irrigated copious also pulsatile lavage solution. I did inject it with about 50 cc of half percent Marcaine with epinephrine. The posterior capsule was then repaired with #2 Tycron suture. The IT band gluteal fascia then closed in 1 PDS suture running fashion for subcutaneous tissues then closed with 2 layers with a deep layer #1 Vicryl suture and subcutaneous tissue with 2 Dexon suture in a buried interrupted fashion. Skin was closed skin ashley. Legs then cleaned dried a sterile dressing was Xeroform, 4 x 4's, ABD pad, foam tape was applied. The patient's a sling was then replaced. The patient then brought out of general incision transferred to the recovery in stable condition. Patient tolerated procedure well and there were no complications. Teodoro Luong, my physician sales assistants and salespersons, was present for the entire procedure. His assistance was essential and required for appropriate patient positioning, prepping and draping, surgical exposure, performing the technical details of the operation, placement the implants, closure of the wound, and placement of the sterile bandage. I attest to the content of the Intraoperative Record and any orders documented therein. Any exceptions are noted below.
--- NOTE | 2020-12-05 10:29 | Anesthesiology Progress Note ---
Date of Service December 05, 2020 Anesthesia Post Procedure Vital Signs Vital Signs: Temp Pulse Pulse Resp BP BP BP 12/05/20 10:20 36.8 C 87 18 183/81 H 12/05/20 10:10 85 18 166/100 H 12/05/20 10:00 96 H 18 197/99 H 12/05/20 09:50 89 18 177/92 H 12/05/20 09:40 36.7 C 104 H 18 212/108 H 12/04/20 23:29 80 198/75 H 12/04/20 22:04 36.8 C 101 H 20 219/106 H 12/04/20 17:16 213/109 H 12/04/20 15:43 37.5 C 90 18 228/112 H 12/04/20 14:57 37.0 C 72 18 185/95 H 12/04/20 13:51 36.7 C 59 L 17 205/88 H 12/04/20 12:54 58 L 20 195/77 H 12/04/20 12:16 59 L 18 199/85 H 12/04/20 11:51 70 20 206/100 H 12/04/20 11:46 12/04/20 11:35 16 243/114 H 12/04/20 10:42 Pulse Ox 12/05/20 10:20 92 12/05/20 10:10 92 12/05/20 10:00 91 12/05/20 09:50 91 12/05/20 09:40 99 12/04/20 23:29 12/04/20 22:04 93 12/04/20 17:16 12/04/20 15:43 97 12/04/20 14:57 92 12/04/20 13:51 12/04/20 12:54 96 12/04/20 12:16 97 12/04/20 11:51 96 12/04/20 11:46 89 L 12/04/20 11:35 90 12/04/20 10:42 96 Pain Intensity Left Shoulder: Pain Intensity: 3 Right Hip: Pain Intensity: 3 Transfer of Care Handoff Completed per policy Notes Mental Status: alert / awake / arousable Patient Amnestic to Procedure: Yes Nausea / Vomiting: adequately controlled Pain: adequately controlled Airway Patency, RR, SpO2: stable & adequate BP & HR: stable & adequate and see Notes below Hydration State: stable & adequate Anesthetic Complications: no major complications apparent and Pt Satisfied with anesthetic care Notes: The patient is awake and comfortable. He was hypertensive on arrival to PACU so was treated with labetalol. He remains hypertensive but his blood pressure is lower than it was at his preoperative baseline. His other vital signs are stable.
[2020-12-05] MEDS ORDERED: NALOXONE HCL 0.4 MG/1 ML VIAL/CARP IV PRN (11:11)
[2020-12-05] MEDS ORDERED: LORATADINE 10 MG TAB PO PRN (11:11)
--- NOTE | 2020-12-05 11:23 | Electrocardiogram Report ---
Test Reason : Blood Pressure : / mmHG Vent. Rate : 063 BPM Atrial Rate : 063 BPM P-R Int : 186 ms QRS Dur : 080 ms QT Int : 404 ms P-R-T Axes : 087 045 068 degrees QTc Int : 413 ms Poor data quality, interpretation may be adversely affected Sinus rhythm with Premature atrial complexes Nonspecific T wave abnormality Abnormal ECG When compared with ECG of 28-DEC-2017 20:44, Premature atrial complexes are now Present Confirmed by Femi Armstrong ([id number]) on 12/05/2020 11:23:37 AM Referred By: REFERRED SELF Confirmed By:Femi Armstrong
[2020-12-05] MEDS ORDERED: ALBUT/IPRATROP 3MG/0.5MG NEB 3 ML VIAL NEB STA (11:26)
[2020-12-05] MEDS ORDERED: ALBUT/IPRATROP 3MG/0.5MG NEB 3 ML VIAL NEB PRN (11:31)
[2020-12-05] MEDS: PSYLLIUM 58.6% POWDER PACKET PO SCH (12:17)
[2020-12-05] MEDS: PANTOprazole 40 MG TAB PO SCH (12:17)
[2020-12-05] MEDS: allopurinoL 100 MG TAB PO SCH (12:18)
[2020-12-05] MEDS: METOPROLOL TARTRATE 25 MG TAB PO SCH ×2 (12:18→22:06)
[2020-12-05] MEDS: cloNIDine HCL 0.1 MG TAB PO SCH ×2 (12:18→22:06)
[2020-12-05 13:00] LABS: Allen Test Pos (Pos); Base Excess ABG -1.3 mEq/L (-9-1.8); HCO3 ABG 24 mmol/L (19-24); Oxygen Saturation ABG 92.5 % (90-95); PCO2 ABG 41 mmHg (35-46); PO2 ABG 63 mmHg (80-95); pH ABG 7.38 (7.35-7.45)
--- NOTE | 2020-12-05 13:04 | XRay Report ---
XR hip RT min 2V CLINICAL HISTORY: Post-Operative implant position COMPARISON: Pelvis and right hip radiographs December 04, 2020. FINDINGS: Alignment of the right hip arthroplasty is anatomic. There is no periprosthetic fracture. There are no unexpected radiopaque foreign bodies. There are skin ashley. IMPRESSION: Expected findings following right hip arthroplasty. ACT 112: Negative or not required by law. Electronically signed by: Jm Dallas M.D. 12/05/2020 1:02 PM
[2020-12-05] MEDS: ALBUT/IPRATROP 3MG/0.5MG NEB 3 ML VIAL NEB SCH ×2 (15:09→19:13)
[2020-12-05] MEDS: traMADol HCL 50 MG TABLET PO PRN ×2 (15:32→22:17)
--- NOTE | 2020-12-05 15:51 | Communication Note ---
Date of Service: December 05, 2020 The patient had a right upper lobe opacity on his CXR. I spoke to Dr. Farris who is aware and will follow up with the patient.
--- NOTE | 2020-12-05 19:55 | Hospitalist Progress Note ---
Date of Service December 05, 2020 Assessment & Plan (1) Gout: (2) Chronic kidney disease, stage III (moderate): (3) Lumbar spinal stenosis: (4) Hypertension: (5) Hypercholesterolemia: (6) Peripheral vascular disease: (7) Closed right hip fracture: (8) Shoulder fracture, left: Plan: 1) Displaced fractures - L humeral, R femoral -now postop for femoral repairhumeral fracture in a sling. PT/OT eval and treat. Likely will need rehab. Outpatient bone health work-up 2) dyspneaappears to be related to his COPD probably from baseline bad COPD and anesthesia. She checked a blood gas, fortunately reassuringjust continue supplemental oxygen and supportive care. Ordered duo nebs. 2) CKD III -creatinine appears goodright around his baseline 3) HTN - cont metoprolol, clonidineblood pressures are reasonable given the situation 4) HLD - cont statin 5) Gout - cont Allopurinol 6) question of pulmonary nodulefor chest CT. Full code, DVT prophylaxis per orthopedics (aspirin twice daily) DispositionPT/OT eval and treat, anticipate need for rehab Admission and Anticipated Discharge Date Admission Date: December 04, 2020 Subjective Seen postopnursing notes that he had a new oxygen requirementhe notes that he does not wear oxygen at home. When asked about dyspneashe cannot really confirm or deny itreally more is able to describe a sensation where he feels like he has to work hard to get enough air in. He has no new or different cough, no chest pain or pressure, just a bit of a sensation of air hunger. He notes that he does have longstanding COPD. Physical Exam Physical Exam: In general he is awake and alert appears very fatigued more than in distress. HEENT normocephalic atraumatic mucous membranes moist. Lungs are markedly diminished throughout question of a faint rhonchus type sound base left but otherwise clear but is markedly reduced air entry. Cardio is regular but very distant, no rubs murmurs or gallops. His arm is in a sling. Skin shows no rashes no pallor or icterus. No focal neuro deficits. Results & Data Results & Data ([facility]) Vital Signs (Past 12 Hours) Vital Signs Temp Pulse Pulse Resp BP Pulse Ox 12/05/20 19:40 98.1 F 81 18 121/74 91 12/05/20 19:13 78 18 92 12/05/20 16:00 98.1 F 79 18 144/70 H 92 12/05/20 15:09 73 16 95 12/05/20 13:45 98.6 F 81 20 149/77 H 92 12/05/20 12:45 98.2 F 85 18 155/71 H 94 12/05/20 12:24 88 18 92 12/05/20 11:44 98.1 F 80 18 157/82 H 92 12/05/20 11:16 81 20 152/80 H 91 12/05/20 10:45 97.7 F 84 18 149/72 H 91 12/05/20 10:30 89 18 190/88 H 92 12/05/20 10:20 98.2 F 87 18 183/81 H 92 12/05/20 10:10 85 18 166/100 H 92 12/05/20 10:00 96 H 18 197/99 H 91 12/05/20 09:50 89 18 177/92 H 91 12/05/20 09:40 98.1 F 104 H 18 212/108 H 99 PG Care Time/CCT Total # of Minutes Spent Total Time Spent with Patient: Total time spent is greater than 50% in coordination of care (as documented) at patient's floor/unit and/or counseling patient: Coding Level of Care Code 63397 Subseq Hosp Care Lvl 3 Diagnoses Gout M10.9 Chronic kidney disease, stage III (moderate) N18.3 Lumbar spinal stenosis M48.061 Hypertension I10 Hypercholesterolemia E78.00 Peripheral vascular disease I73.9 Closed right hip fracture S72.001A Shoulder fracture, left S42.92XA
[2020-12-05] MEDS: ASPIRIN 81 MG ECTAB PO SCH (22:05)
[2020-12-05] MEDS: PRAVASTATIN SOD 40 MG TAB PO SCH (22:07)
[2020-12-05] MEDS: DOCUSATE SODIUM/SENNA 50/8.6MG TAB PO SCH (23:57)
[2020-12-06 06:08] LABS: BUN Creatinine Ratio 23.4 (10-20); Calcium 8.6 mg/dl (8.5-10.1); Creatinine Clr Calc Pharmacy 38.4 ml/min; Est GFR (African American) 63.9 ml/min; Est GFR (Non-African American) 55.2 ml/min; Potassium 4.6 mmol/L (3.5-5.1)
[2020-12-06 06:14] LABS: Basophils # (auto) 0.02 K/uL (0-0.2); Basophils % (auto) 0.1 %; Hematocrit (blood only) 33.7 % (42-52); Hemoglobin 11.3 g/dL (14.0-18.0); Immature Granulocytes # (auto) 0.07 K/uL (0.00-0.02); Immature Granulocytes % (auto) 0.4 %; Lymphocytes % (auto) 7.2 %; Mean Corpuscular Hemoglobin 31.7 pg (25-34); Mean Corpuscular Hgb Conc 33.5 g/dL (32-36); Mean Corpuscular Volume 94.4 fL (80-100); Mean Platelet Volume 11.2 fL (7.4-10.4); Monocytes # (auto) 2.16 K/uL (0.11-0.59); Monocytes % (auto) 11.1 %; Neutrophils # (auto) 15.74 K/uL (1.4-6.5); Neutrophils % (auto) 81.2 %; Platelet Count 205 K/uL (130-400); RDW Coefficient of Variation 13.6 % (11.5-14.5); RDW Standard Deviation 46.8 fL (36.4-46.3); Red Blood Count 3.57 M/uL (4.7-6.1); White Blood Count 19.39 K/uL (4.8-10.8)
[2020-12-06] MEDS: ALBUT/IPRATROP 3MG/0.5MG NEB 3 ML VIAL NEB SCH (07:20)
[2020-12-06] MEDS: cloNIDine HCL 0.1 MG TAB PO SCH ×2 (08:03→20:33)
[2020-12-06] MEDS: ASPIRIN 81 MG ECTAB PO SCH ×2 (08:03→20:33)
[2020-12-06] MEDS: PSYLLIUM 58.6% POWDER PACKET PO SCH (08:04)
[2020-12-06] MEDS: allopurinoL 100 MG TAB PO SCH (08:04)
[2020-12-06] MEDS: PANTOprazole 40 MG TAB PO SCH (08:04)
[2020-12-06] MEDS: METOPROLOL TARTRATE 25 MG TAB PO SCH ×2 (08:04→20:33)
--- NOTE | 2020-12-06 14:50 | Hospitalist Progress Note ---
Date of Service December 06, 2020 Assessment & Plan (1) Fall: Plan: 85 yo M w/ pMHx. of Gout, HTN, HLD, PAD, CKD III presents after a fall with a multiple fractures. Displaced fractures - L humeral, R femoral - Dr. Valencia with Orthopedics consulted - now s/p femoral repair humeral fracture in a sling, managed non-surgically per orthopedics - PT/OT ordered - Likely will need rehab - Outpatient bone health evaluation Leukocytosis WBC 19.39 in the post operative setting with nl. temp., nl. HR through the day, oxygen requirement 4L today, Castellanos in place - continue to follow, would consider post-op infection (PNA, bacteremia, or CAUTI) if he becomes febrile or shows other signs of infection - will check CT chest ordered for nodule evaluation - continue to follow WBC with AM labs Possible COPD w (acute) exacerbation treated with O2 and Duoneb Hypoxia no wheeze appreciated on exam, no complaint of shortness of breath or trouble breathing this morning - likely related to anesthesia with reassuring ABG - continue with supportive care - SHERLYN duonebs converted to PRN - wean oxygen as able to. - CT chest ordered CKD III -creatinine at baseline currently 1.18 - contine to follow HTN - cont metoprolol, clonidineblood pressures are reasonable given the situation HLD - cont statin Gout - cont Allopurinol question of pulmonary nodule CXR with 2.5 cm opacity concerning for pulmonary nodule, rec. CT chest to exclude nodule CT chest ordered Full code, DVT prophylaxis per orthopedics (aspirin twice daily) Code: full DispositionOT rec. SNF, PT rec[facility] inpatient rehab - [facility], no auth. required (2) Acid reflux: (3) Benign hypertension with chronic kidney disease, stage III: (4) Gout: Admission and Anticipated Discharge Date Admission Date: December 04, 2020 Supervising Physician Co-Signing Physician Notes Resident Physician Supervision Note: I independently interviewed and examined the patient and verified the [place] history and physical, reviewed labs and image studies and agree with resident Dr. Kaur findings and care plan. Subjective Baron Bliss is doing well this morning. He was having pain with standing and pain in his left shoulder. No shortness of breath, trouble breathing or wheezing. He did not have any questions. Review of Systems Review of Systems: Constitutional: denies fevers, chills Cardiac: denies chest pain, palpitations GI: denies nausea, vomiting, constipation, diarrhea Pulm.: denies cough, shortness of breath Physical Exam Constitutional: WD/WN, vitals as above Eyes: PERRL, conjunctivae normal, anicteric sclerae Neck: normal visual inspection Respiratory: normal respiratory effort, lungs clear to auscultation Cardiovascular: RRR, no murmur, no edema Gastrointestinal (Abdomen): - soft, nTTP, no guarding, bowel sounds present Skin: no rashes, warm and dry Genitourinary: - urinary catheter in place Results & Data Results & Data ([facility]) Vital Signs (Past 12 Hours) Vital Signs Temp Pulse Pulse Resp BP Pulse Ox 12/06/20 07:39 37.0 C 97 H 20 137/73 93 12/06/20 07:20 81 20 90 CBC Results Results Complete Blood Count Results: RBC 3.57 M/uL (4.7-6.1) L 12/06/20 WBC 19.39 K/uL (4.8-10.8) H 12/06/20 Hgb 11.3 g/dL (14.0-18.0) L 12/06/20 Hct 33.7 % (42-52) L 12/06/20 Plt Count 205 K/uL (130-400) 12/06/20 Chemistry (BMP) Results BMP Results: Sodium 136 mmol/L (136-145) 12/06/20 Potassium 4.6 mmol/L (3.5-5.1) 12/06/20 Chloride 104 mmol/L (98-107) 12/06/20 BUN 28 mg/dl (7-18) H 12/06/20 Creatinine 1.18 mg/dl (0.6-1.4) 12/06/20 Glucose 123 mg/dl (70-99) H 12/06/20 Resident Activity Tracking Resident Involvement: Resident Care Provided Care Provided: Adult Hospital Medicine (1) Fall Encounter type: initial encounter Qualified Code(s): W19.XXXA - Unspecified fall, initial encounter
--- NOTE | 2020-12-06 15:34 | CT Scan Report ---
CT chest diagnostic wo con CT DOSE: 605.53 mGycm HISTORY: Follow-up abnormal chest x-ray. Possible right upper lobe nodule. TECHNIQUE: Multiaxial CT images of the chest were performed without contrast. A dose lowering techni que was utilized adhering to the principles of ALARA. COMPARISON: Chest x-ray 12/04/2020. FINDINGS: The central airways are patent. No pneumothorax. Trace right pleural effusion. Moderate to severe emphysema. There is a spiculated 13 mm nodule within the right upper lobe on image 64. This ab uts the posterior pleural surface. This may account for the previous identified chest x-ray abnormali ty. There is also focal area of interstitial thickening within the right upper lobe anteriorly on candi ge 55. This may represent an area of chronic scarring. There are small scarlike densities within the lung apices. Bibasilar linear densities likely represent subsegmental atelectasis. There is an 8 mm i rregular density within the right upper lobe on image 139. No suspicious lytic or blastic osseous les ions. No mediastinal hilar lymphadenopathy. There is a small hiatus hernia. The heart is normal in si ze. Trace pericardial fluid seen anteriorly. Moderate calcified plaque within the normal caliber thor acic aorta and coronary arteries. Multiple scattered hypodense lesions within the liver. These are in completely characterized on this noncontrast study but favor cysts. The visualized spleen and adrenal glands are unremarkable. There is 9 mm intermediate density lesion within the right kidney which ny s not appear to demonstrate significant enhancement compared to the 02/23/[address] Therefore, this favors a hyperdense cyst. IMPRESSION: 1. A 13 mm spiculated nodule within the right upper lobe. This is highly suspicious for a primary bro nchogenic malignancy. Follow-up PET/CT and pulmonary consultation recommended for further evaluation. 2. Moderate to severe emphysema. 3. Trace right pleural effusion. 4. An 8 mm irregular density within the right upper lobe as described above. This may represent an ar ea of scarring. This bears watching future examinations. 5. Small hiatus hernia. ACT 112: Positive. There are findings on this exam that require communication between the performing entity and the patient following Patient Test Result Information Act ([place] Act 112) guidelines. Electronically signed by: Hebert Dickson M.D. 12/06/2020 3:32 PM
--- NOTE | 2020-12-06 18:39 | Progress Notes ---
DATE OF NOTE: 12/06/2020. SUBJECTIVE: An 85-year-old gentleman postop day 1 from a right cemented bipolar hip arthroplasty for fracture. He has also got a left proximal humerus fracture. He is doing pretty well, has some pain but manageable. No new complaints. OBJECTIVE: VITAL SIGNS: Temperature 36.4. VITAL SIGNS: Stable. PHYSICAL EXAMINATION: Shows a pleasant, elderly male. He is sitting on bed, looks reasonably comfor table this afternoon. Examination of the right hip reveals the leg lengths to be equal. Dressing is clean, dry and intact. He can dorsiflex and plantarflex his foot appropriately. He is neurological ly intact. Examination of the left arm reveals the sling to be in place. There is no visible deformity. He can flex and extend his fingers appropriately. LABORATORY DATA: Hemoglobin 11.3. Hematocrit 33.7. White cell count 19.39. Electrolytes are stabl e. CT scan. He did have a CT scan to check for his pulmonary nodule and it is suspicious for potential cancer. ASSESSMENT: An 85-year-old gentleman postop day 1 from a right cemented bipolar hip arthroplasty for fracture along with a nonoperative treatment of a left proximal humerus fracture. He is doing reaso nably well considering all. He does apparently have this pulmonary nodule further characterized on C T scan concerning for primary pulmonary malignancy. PLAN: From the orthopedic standpoint, he is weightbearing as tolerated. He needs to obey hip precau tions. He will need to wear the sling for the next 6 weeks. Limited use of the left arm. No use at all for the next 2 weeks. Recommend DVT prophylaxis including TEDs, SCDs, and aspirin. As far as a pulmonary nodule, I think that is a judgment call. In this 85-year-old gentleman I am not sure it i s worth aggressive management and treatment. We will leave that up to the medicine service and their discussion with the patient. Any orthopedic questions can be directed to me at [phone]. He can we ight bear as tolerated. He is orthopedically okay for discharge any time medically stable. I will s ee him back two weeks out postop. Job ID: [id number]
[2020-12-06] MEDS: POLYETHYLENE (MIRALAX) 17 GM PACK PO SCH (20:31)
[2020-12-06] MEDS: PRAVASTATIN SOD 40 MG TAB PO SCH (20:33)
[2020-12-06] MEDS: DOCUSATE SODIUM/SENNA 50/8.6MG TAB PO SCH (20:33)
[2020-12-07 06:42] LABS: Eosinophils # (auto) 0.04 K/uL (0-0.5); Eosinophils % (auto) 0.3 %; Hematocrit (blood only) 29.5 % (42-52); Hemoglobin 9.8 g/dL (14.0-18.0); Immature Granulocytes # (auto) 0.04 K/uL (0.00-0.02); Immature Granulocytes % (auto) 0.3 %; Lymphocytes % (auto) 9.6 %; Mean Corpuscular Hemoglobin 31.2 pg (25-34); Mean Corpuscular Hgb Conc 33.2 g/dL (32-36); Mean Corpuscular Volume 93.9 fL (80-100); Mean Platelet Volume 11.1 fL (7.4-10.4); Monocytes # (auto) 1.59 K/uL (0.11-0.59); Monocytes % (auto) 12.7 %; Neutrophils # (auto) 9.67 K/uL (1.4-6.5); Neutrophils % (auto) 77.1 %; Platelet Count 202 K/uL (130-400); RDW Coefficient of Variation 13.6 % (11.5-14.5); RDW Standard Deviation 46.7 fL (36.4-46.3); Red Blood Count 3.14 M/uL (4.7-6.1); White Blood Count 12.54 K/uL (4.8-10.8)
[2020-12-07 07:20] LABS: BUN Creatinine Ratio 25.3 (10-20); Calcium 8.8 mg/dl (8.5-10.1); Creatinine Clr Calc Pharmacy 30.8 ml/min; Est GFR (Non-African American) 42.3 ml/min; Potassium 3.9 mmol/L (3.5-5.1)
[2020-12-07 07:42] VITALS: BP 174/81; PULSE 91; TEMP 98.2; O2SAT 100
--- NOTE | 2020-12-07 08:47 | Hospitalist Progress Note ---
Date of Service December 07, 2020 Assessment & Plan (1) Fall: Plan: 85 yo M w/ pMHx. of Gout, HTN, HLD, PAD, CKD III presents after a fall with a multiple fractures. Displaced fractures - L humeral, R femoral - Dr. Valencia with Orthopedics consulted - now s/p femoral repair humeral fracture in a sling, managed non-surgically per orthopedics - PT/OT ordered - Likely will need rehab - Outpatient bone health evaluation Spiculated nodule of the right upper lobe Hx. 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 - CT with findings of severe emphysema Leukocytosis, improving WBC 13 in the post operative setting with nl. temp., nl. HR through the day, oxygen requirement 4L today, Castellanos in place - continue to follow, would consider post-op infection (PNA, bacteremia, or CAUTI) if he becomes febrile or shows other signs of infection - will check CT chest ordered for nodule evaluation - continue to follow WBC with AM labs CKD III -creatinine at baseline currently 1.18 - contine to follow HTN - cont metoprolol, clonidineblood pressures are reasonable given the situation HLD - cont statin Gout - cont Allopurinol Full code, DVT prophylaxis per orthopedics (aspirin twice daily) Code: full DispositionOT rec. SNF, PT rec[facility] inpatient rehab - [facility], no auth. required (2) Gout: (3) Benign hypertension with chronic kidney disease, stage III: Admission and Anticipated Discharge Date Admission Date: December 04, 2020 Subjective Discussed with patient and his daughter Diamond who is his POA the findings that are seen on CT chest of 13 mm spiculated nodule concerning for malignancy. Results & Data Results & Data ([facility]) Vital Signs (Past 12 Hours) Vital Signs Temp Pulse Resp BP Pulse Ox 12/07/20 07:40 36.8 C 91 H 18 174/81 H 100 12/07/20 03:09 36.7 C 86 16 164/83 H 98 12/06/20 22:32 37 C 92 H 16 173/80 H 94 (1) Fall Encounter type: initial encounter Qualified Code(s): W19.XXXA - Unspecified fall, initial encounter
--- NOTE | 2020-12-07 08:54 | Pulmonary Consultation ---
Date of Consultation December 07, 2020 Assessment & Plan (1) COPD with emphysema: (2) Pulmonary nodule: CT chest 12/06/2020 personally reviewed: Centrilobular and paraseptal emphysema appreciated bilaterally Right upper lobe peripheral pleural-based 13 mm spiculated pulmonary nodule Bilateral lower lobe atelectasis No mediastinal lymphadenopathy CT chest 04/08/2016 personally reviewed. No nodules appreciated at that time. --Right upper lobe spiculated nodule In a patient with COPD and emphysema Heavy smoker New compared to CT chest 03/2016 Possibility of cancer is very high Unfortunately there is no clearly going to the nodule. --COPD with emphysema Not on any inhalers at home Start the patient on Anoro to be used on a daily basis --Acute hypoxic respiratory failure Continue with O2 supplementation to keep oxygen saturation between 88-92% Patient likely had the need of oxygen even before coming to the hospital given the severe COPD and emphysema that he has Patient would likely benefit from pulmonary rehab. This could all be discussed on outpatient basis Plan: Patient does have a spiculated pulmonary nodule possibility of cancer is high I do not see any mediastinal adenopathy I would recommend patient to have a PET/CT done as soon as he is discharged. I do not see a clear airway to biopsy it. IR guided biopsy as an outpatient could be thought of the patient is willing to go ahead with procedure. Patient will benefit from outpatient PFTs to look at baseline lung function Case was discussed with Dr. Flower Please note the above document was generated using voice recognition software. It may contain grammatical, syntax or spelling errors.Any formal questions or concerns about the content, text or information contained within the body of this dictation should be directly addressed to the provider for clarification. History of Present Illness Attending Physician: Mallika Flower MD History of Present Illness 85-year-old male with past medical history of hypertension, dyslipidemia, CKD stage III, COPD not on any inhalers was admitted to the hospital for mechanical fall and had fracture of the left humeral as well as right femoral. Patient had CT chest done which showed spiculated nodule Pulmonary were consulted for the same Patient is s/p right cemented bipolar arthroplasty. Patient complaining of mild hip discomfort. No significant shortness of breath, denies any chest pain Occasional cough. Not bringing up any phlegm. No fever or chills. Allergies Allergy/AdvReac Type Severity Reaction Status Date / Time baclofen Allergy Unknown Unknown Verified 11/18/20 08:31 clozapine Allergy Unknown unknown Verified 11/18/20 08:31 haloperidol Allergy Unknown unknown Verified 11/18/20 08:31 metoclopramide Allergy Unknown Unknown Verified 11/18/20 08:31 Phenothiazines Allergy Unknown unkonwn Verified 11/18/20 08:31 Home Medications Medication Instructions Recorded Confirmed Type aspirin 81 mg tablet,delayed 81 mg PO DAILY 02/11/18 12/04/20 History release (Adult Low Dose Aspirin) multivitamin 1 tab PO DAILY 02/11/18 12/04/20 History brimonidine 0.2 %-timolol 0.5 % 1 drops OP BID 11/12/18 12/04/20 History eye drops (Combigan) colchicine 0.6 mg tablet (Colcrys) 0.6 mg PO DAILY PRN #90 tab 05/15/19 12/04/20 Rx loratadine 10 mg tablet (Claritin) 10 mg PO DAILY PRN 06/11/20 12/04/20 History psyllium husk 3.4 gram/5.4 gram 1 tbsp PO DAILY 06/11/20 12/04/20 History oral powder (Metamucil) clonidine HCl 0.2 mg tablet 0.1 mg PO BID #45 tab 11/10/20 12/04/20 Rx allopurinol 100 mg tablet 100 mg PO DAILY #90 tab 11/15/20 12/04/20 Rx metoprolol tartrate 25 mg tablet 25 mg PO BID #180 tab 11/15/20 12/04/20 Rx pravastatin 80 mg tablet 80 mg PO HS #90 tab 11/15/20 12/04/20 Rx sildenafil (pulm.hypertension) 20 See Rx Instructions PO .COMPLEX 11/15/20 12/04/20 Rx mg tablet #20 tab omeprazole 20 mg capsule,delayed 20 mg PO DAILY #90 cap 11/16/20 12/04/20 Rx release umeclidinium 62.5 mcg-vilanterol 1 ea INHALATION DAILY #0 ea 12/07/20 Rx 25 mcg/actuation powdr for inhalation (Anoro Ellipta) Patient History Medical History (Updated 12/07/20 @ 08:51 by Violeta Carmona MD) Acid reflux Benign hypertension with chronic kidney disease, stage III Benign prostatic hypertrophy Chronic kidney disease, stage III (moderate) Diastasis of muscle Glaucoma Gout Gouty arthritis History of malignant neoplasm of oropharynx Hypercholesterolemia Hypertension Impaired fasting glucose Lumbar spinal stenosis Peripheral vascular disease Sacroiliitis Sciatica of left side Skin lesion of left ear 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) Surgical History H/O aorto-femoral bypass (~2009) H/O transurethral resection of prostate History of biopsy (09/23/13) History of colonoscopy Loss of teeth due to extraction Status post aortic bifurcation bypass graft History of Bypass Graft (Non-Vein) Aortic-bifemoral Status post appendectomy Status post cataract surgery Status post tonsillectomy and adenoidectomy Family History Sister Breast cancer Diabetes Father Parkinsons disease Mother Diabetes Social History Smoking Status: Former smoker Age Started Using Tobacco: 14; Age Quit Using Tobacco: 64; packs per day: 1; Second Hand Exposure: No; Hx Alcohol Use: No Hx Substance Use: No Preferred Language: Thai Communication Ability: Unable Visual Impairment: Limited Hearing Ability: Normal Engraver Hand Soft Metals Required: No Beliefs That Will Affect Care: None marital status: Current Living Situation: Alone Current Living Situation Comment: Lives in own home and can live on one floor current occupational status: retired Feels Safe at Home: Yes Seatbelt Use: always Sunscreen Use: No Assistive Devices: Glasses and Walker Review of Systems Review of Systems: All systems reviewed & are unremarkable except as noted in HPI & below Physical Exam Physical Exam: Constitutional: No acute distress HEENT: EOMI, PERRLA Respiratory system: Decreased air entry bilaterally, no wheeze, no rhonchi, minimal crackles bilateral lower lobes CVS: S1-S2 positive Abdomen: Soft, nontender, nondistended, positive bowel sounds x4 Extremities: +2 pulses bilaterally radialis/ dorsalis pedis, no cyanosis, no edema Neuro: Awake alert oriented x3 Psych: Normal mood and affect G/U: No Castellanos Skin: no rashes, warm and dry Lymphatic: no cervical or axillary lymphadenopathy Results & Data Results & Data ([facility]) Vital Signs (Past 12 Hours) Vital Signs Temp Pulse Resp BP Pulse Ox 12/07/20 07:40 36.8 C 91 H 18 174/81 H 100 12/07/20 03:09 36.7 C 86 16 164/83 H 98 12/06/20 22:32 37 C 92 H 16 173/80 H 94 12/07/20 05:33 12/07/20 05:33 PG Care Time/CCT Total # of Minutes Spent Total Time Spent with Patient: Total time spent is greater than 50% in coordination of care (as documented) at patient's floor/unit and/or counseling patient: Coding Level of Care Code 85532 Initial Inpt Care Lvl 3 Diagnoses COPD with emphysema J43.9 Pulmonary nodule R91.1
[2020-12-07] MEDS ORDERED: UMECLIDINIUM/VILANTEROL 62.5/25MCG 7 PUFFS/INHALER INH SCH (09:00)
[2020-12-07] MEDS: ASPIRIN 81 MG ECTAB PO SCH (09:01)
[2020-12-07] MEDS: cloNIDine HCL 0.1 MG TAB PO SCH (09:01)
[2020-12-07] MEDS: PANTOprazole 40 MG TAB PO SCH (09:01)
[2020-12-07] MEDS: PSYLLIUM 58.6% POWDER PACKET PO SCH ×2 (09:01→09:04)
[2020-12-07] MEDS: allopurinoL 100 MG TAB PO SCH (09:01)
[2020-12-07] MEDS: METOPROLOL TARTRATE 25 MG TAB PO SCH (09:01)
[2020-12-07] MEDS: POLYETHYLENE (MIRALAX) 17 GM PACK PO SCH ×2 (09:03→09:06)
--- NOTE | 2020-12-07 12:48 | Discharge Summary ---
Date of Service December 07, 2020 Admission HPI Per Admitting Provider 85 y/o M Hx gout, HTN, HLD, PAD, CKD III. The pt suffered a mechanical fall striking at points his head, L shoulder/arm and R hip. He denies preceding symptoms such as CP, palpitations or dizziness, but does state that he has chronic issues with his balance. He did not lose consciousness. Imaging in the ER confirmed a displaced impacted left humeral neck fracture in addition to a displaced right femoral neck fracture. Labs were unremarkable. 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 Quit drinking 1977. Family: Noncontributory due to pt age Admission Exam Per Admitting Provider General: Very pleasant, elderly M, AAO x 3, no distress ENT: No erythema or exudates, no thrush Eyes: PADMA, EOMI Head and neck: Normocephalic, atraumatic, No JVD, neck is supple. Chest/heart: Nontender, S1,2, RRR, no murmurs, no gallops Lungs: CTAB, no wheezing or crackles Abdomen: Nontender, nondistended, BS+ Neuro: AAO x 3, speech is clear, no unilateral weakness or loss of sensation, c oordination intact Musculoskeletal: Did not mobilize affected extremities - pulses are +, the RLE is shortened but not rotated Skin: No acute rashes or ulcers Extremities: No clubbing, cyanosis, edema Principal Diagnosis Fall Discharge Exam Constitutional well nourished; no acute distress Eyes no conjunctival abnormality ENMT external ear and nose normal, oropharynx normal Neck normal visual inspection Respiratory normal respiratory effort, lungs clear to auscultation Cardiovascular RRR, no murmur, no edema Gastrointestinal (Abdomen) normal bowel sounds, soft, nontender, no hepatosplenomegaly Musculoskeletal - patient with left arm sling - tender over the left shoulder/arm - Skin no rashes, warm and dry Discharge Data Allergies Allergy/AdvReac Type Severity Reaction Status Date / Time baclofen Allergy Unknown Unknown Verified 11/18/20 08:31 clozapine Allergy Unknown unknown Verified 11/18/20 08:31 haloperidol Allergy Unknown unknown Verified 11/18/20 08:31 metoclopramide Allergy Unknown Unknown Verified 11/18/20 08:31 Phenothiazines Allergy Unknown unkonwn Verified 11/18/20 08:31 Consultations 12/04/20 11:28 ED Decision to Admit Stat 12/04/20 14:32 Consult Orthopedic Surgery Routine 12/07/20 08:40 Consult Pulmonology Routine Plan: - spiculated pulmonary nodule with high possibility of cancer with no me diastinal adenopathy - recommend patient to have a PET/CT done upon discharged. - not able to biopsy via airway, consider outpatient IR guided biopsy - follow up with pulmonology for baseline lung function Procedures Performed Operation Date: 12/05/20 13:00 Actual Procedures p Bipolar Hip Prosthesis(Right) - Jaspreet Valencia MD Ordered Studies 12/04/20 10:16 CT cervical spine wo con Stat CT head/brain wo con Stat 12/05/20 19:55 CT chest diagnostic wo con Routine IMPRESSION: 1. A 13 mm spiculated nodule within the right upper lobe. This is highly suspicious for a primary bronchogenic malignancy. Follow-up PET/CT and pulmonary consultation recommended for further evaluation. 2. Moderate to severe emphysema. 3. Trace right pleural effusion. 4. An 8 mm irregular density within the right upper lobe as described above. This may represent an area of scarring. This bears watching future examinations. 5. Small hiatus hernia. Hospital Course (1) Fall: 85 yo M w/ pMHx. of Gout, HTN, HLD, PAD, CKD III presents after a fall with a multiple fractures. Displaced fractures - L humeral, R femoral - s/p femoral repair humeral fracture in a sling, managed non-surgically per orthopedics - Outpatient bone health evaluation - follow up with Orthopedics Spiculated nodule of the right upper lobe Hx. 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 Carmona - will require an outpatient PET scan Possible COPD with (acute) exacerbation treated with O2 and Duoneb no wheeze appreciated on exam, no complaint of shortness of breath or trouble breathing - CT with findings of severe emphysema - prn duonebs - continue Anoro that was started in the hospital Hypoxia, 4L oxygen requirement likely due to splinting with left humerus fracture as well as COPD as above - continue to titrate oxygen - continue using IS device Leukocytosis, improving in the post operative setting - continue to follow WBC to normalization CKD III - creatinine at baseline HTN - cont metoprolol and clonidine HLD - cont statin Gout - cont Allopurinol (2) Pulmonary nodule: (3) COPD with emphysema: (4) Gout: (5) Chronic kidney disease, stage III (moderate): (6) Acid reflux: Total Time Total Time Spent Total Time Spent (In Minutes): see attending attestation Discharge Plan Discharge Items Patient Disposition: Transfer Inpatient Rehab Fac Reason For Visit: HIP FRACTURE Discharge Diagnosis: Right Hip Replacement for Fracture Left Proximal Humerus Fracture Condition on Discharge: Good Activity: Per Instructions section Activity Comment: Weightbear as tolerated following hip precautions. No use left arm...sling Lifting: None Lifting Comment: Left arm sling at all times. Weightbearing: Full weightbearing Weightbearing Comment: Weightbear as tolerated obeying hip precautions Non-emergency contact: Surgeon Call non-emergency contact if: your symptoms worsen Follow-up/Referrals: Hieu Lopes III, MD [Primary Care Provider] - 12/13/20 2:00 pm (APPT WITH [facility] PA-C) Jaspreet Valencia MD [Physician] - 12/20/20 11:20 am (Orthopedic follow-up 2-3 weeks from surgery date) Diet: Regular Addtl Attending Provider Instructions: ACTIVITY RECOMMENDATIONS: Physical Therapy: * Aggressive physical therapy is not usually needed. You will learn to take care of yourself safely and walk. * Follow the "Hip Precautions Instructions." * In some cases, the social group worker at the hospital will arrange to have a therapist come to your house for the first couple of weeks to help you learn these skills. * You need to practice on your own or with the help of a family member as needed. * When you learn these skills, most of the therapy can be done on your own. Home Exercise: * You were shown a series of exercises in the hospital. Do these exercises three to four times each day including the exercises you were shown in physical therapy. Walking: * Get up and walk several times each day. For the first four weeks, try not to stand or walk for more than one hour at a time. If you do stand or walk for more than one hour, you will not hurt anything, but your leg will likely swell. * As you feel comfortable, you may change from the walker or crutches to a cane and then to independent walking. MEDICATIONS: New Medicine: * You will likely be taking one or more of these medicines: 1. Tramadol - Take, as directed, when you need it, every six hours to control your pain. 2. Aspirin - Thins your blood to lessen the chance of forming a blood clot. * The most common side effects of pain medicine and iron are nausea and constipation. If nausea or constipation is too much of a problem or if you have any questions about your new medicines or doses, call [facility] at [phone]. We will try to help you manage these issues. "VERY IMPORTANT TO READ AND REVIEW" Pain: * The immediate post-operative period after hip replacement surgery is often quite painful. * You are given a prescription for pain medicine. You should take it, as directed, when you need it, especially before physical therapy and before going to bed. Pain that interferes with sleep is very common and can last several months. * You will likely need pain medicine for the first two to four weeks. It will not stop all of the pain. The pain will lessen and as you feel better, you may change to milder pain medicine such as Tylenol. * The most common side effects of pain medicine are nausea and constipation, so don't take more than you need. SPECIAL CARE INSTRUCTIONS: TEDs/Elastic Stockings: * The white elastic stockings help limit swelling and prevent blood clots from forming in your legs. The more you wear them, the more they work. * Wear them for six weeks. Prevention of Infection: * Take antibiotics one hour before any dental cleaning, dental work, urological procedure, gastrointestinal procedure or any invasive surgery in order to prevent your new joint from getting infected. * You may get the antibiotics from the doctor performing the procedure or you may call our office at before and we will call in a prescription to the pharmacy of your choice. Things to Watch For: * Drainage from the incision site that occurs more than one week after your surgery. * Severely increased leg pain or swelling. * Increased redness at the incision site. * Fever above 102 degrees Fahrenheit. * Unusual chest pain or shortness of breath. * Unusual pain or burning with urination. Call [facility] at with any of the above problems or if you have any questions about your medicines or recovery. FOLLOW UP VISIT: Make an appointment to see your doctor for approximately two weeks after surgery for a progress check and staple removal by calling the office at . Addtl Master Baker Provider Instructions: 85 yo M w/ pMHx. of Gout, HTN, HLD, PAD, CKD III presents after a fall with a multiple fractures. Displaced fractures - L humeral, R femoral - s/p femoral repair humeral fracture in a sling, managed non-surgically per orthopedics - Outpatient bone health evaluation Spiculated nodule of the right upper lobe Hx. 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) s/p radiatin therapy CXR with 2.5 cm opacity concerning for pulmonary nodule CT chest with findings of 13 mm spiculated nodule concerning for malignancy and trace right pleural effusion - follow up with Pulmonology - will require an outpatient PET scan Possible COPD with (acute) exacerbation treated with O2 and Duoneb no wheeze appreciated on exam, no complaint of shortness of breath or trouble breathing - CT with findings of severe emphysema - prn duonebs - continue Anoro that was started in the hospital Hypoxia, 4L oxygen requirement likely due to splinting with left humerus fracture as well as COPD as above - continue to titrate oxygen - continue using IS device Leukocytosis, improving WBC 13 in the post operative setting with nl. temp., nl. HR through the day, oxygen requirement 4L today, Castellanos in place - continue to follow WBC to normalization CKD III - creatinine at baseline - cont to follow HTN - cont metoprolol and clonidine HLD - cont statin Gout - cont Allopurinol Patient information Pulmonary mass You had a pulmonary nodule on an X-ray of your chest. We ordered a CT of your chest that showed a mass in your right lung. As we discussed we are concerned that this is malignant (cancer). You will need to follow up with pulmonology and will need another imaging exam called a PET scan to further evaluate the finding on your CT. Chronic Obstructive Pulmonary Disease (COPD) You have findings on your CT that is concerning for COPD. You will need to follow up with pulmonology to get testing to further evaluate you for COPD. We will start you on a new medication Anoro. Follow up PCP in 1-2 weeks Surgery 2-3 weeks Pulmonology 2-3 weeks Pending Studies at Discharge: No Stand-Alone Forms: My [facility] Skilled Items Patient informed of condition?: Yes DNR: No Discharge Level of Care: Acute rehab Communicable Disease: No Discharge Prognosis: Stable Lines: Peripheral IV Urinary Catheter: No Medications and DC Order Prescriptions: New Anoro Ellipta 62.5-25 mcg/actuation Blister With Device 1 ea inhalation DAILY Qty: 0 RF: 0 Continued multivitamin tablet 1 tab PO DAILY RF: 0 aspirin [Adult Low Dose Aspirin] 81 mg tablet,delayed release (DR/EC) 81 mg PO DAILY RF: 0 Combigan 0.2-0.5 % drops 1 drops OP BID RF: 0 loratadine [Claritin] 10 mg tablet 10 mg PO DAILY PRN (Reason: Allergy Symptoms) RF: 0 colchicine [Colcrys] 0.6 mg tablet 0.6 mg PO DAILY PRN (Reason: gout) Qty: 90 RF: 3 clonidine HCl 0.2 mg tablet 0.1 mg PO BID Qty: 45 RF: 11 allopurinol 100 mg tablet 100 mg PO DAILY Qty: 90 RF: 3 metoprolol tartrate 25 mg tablet 25 mg PO BID Qty: 180 RF: 3 pravastatin 80 mg tablet 80 mg PO HS Qty: 90 RF: 3 sildenafil (pulm.hypertension) 20 mg tablet See Rx Instructions PO .COMPLEX Qty: 20 RF: 5 omeprazole 20 mg capsule,delayed release(DR/EC) 20 mg PO DAILY Qty: 90 RF: 3 Metamucil 3.4 gram/5.4 gram powder 1 tbsp PO DAILY RF: 0 Discharge Orders: Discharge Order (Routine); Ordered 12/07/20 Ordered By: Deon Caldwell/Other Patient Handouts: DVT Post Op Prevention Admission Data Admit Date/Time: 12/04/20 13:05 Attending Provider: Mallika Flower Admit Provider: Derick Causey Primary Care Provider: Hieu Lopes III Other Providers: Derick Causey ; Jaspreet Valencia ; [facility] ; Violeta Carmona Other Interventions: Discharge Summary Assessment (RN) Last Done: 12/07/20 13:34 Supervising Physician Co-Signing Physician Notes Resident Physician Supervision Note: I independently interviewed and examined the patient and verified the [place] his tory and physical, reviewed labs and image studies and agree with resident Dr. Kaur findings and care plan.
--- NOTE | 2020-12-07 13:03 | Progress Notes ---
DATE OF SERVICE: 12/07/2020 SUBJECTIVE: An 85-year-old gentleman now postop day 2 from a bipolar hip arthroplasty for right hip fracture. He has got a left proximal humerus fracture. He is doing pretty well. No new complaints today. Pain seems to be getting a little bit better. OBJECTIVE: VITAL SIGNS: Temperature is 36.8. Vital signs are stable. PHYSICAL EXAMINATION: GENERAL: Shows a pleasant, elderly male. He is sitting up in bed and looks reasonably comfortable. EXTREMITIES: Examination of the right hip reveals the dressing to be clean, dry and intact. Leg blanka ths are equal. Thigh is soft and supple. He is neurologically intact. Examination of the left arm reveals a sling to be in place. He has got some mild swelling. No obviou s deformity. He can flex and extend his wrist and fingers appropriately. LABORATORY DATA: Hemoglobin 9.8. Hematocrit 29.5. ASSESSMENT: This 85-year-old gentleman postoperative day 2 from a right cemented bipolar hip arthrop lasty for fracture along with a left proximal humerus fracture treated conservatively, doing okay. H e seems to be stable from an orthopedic standpoint. PLAN: 1. DVT prophylaxis includes thigh-high TEDs, SCDs, and we recommended a baby aspirin twice a day for 6 weeks. 2. PT/OT. He can weight bear as tolerated. Right total hip protocol. He does need to leave his le ft arm in the sling. No physical therapy at all for the left arm at this time. 3. Pain control, seems to be doing pretty well with current pain regimen. 4. Medical management as per the medicine service. 5. Disposition: He is orthopedically okay for discharge any time medically stable. I need to see h im back 2-3 weeks out from his surgery date. Any orthopedic questions can be directed to me at [phone]. Job ID: [id number]
[2020-12-07] MEDS ORDERED: TIMOLOL 0.5% OP SCH (21:00)
[2020-12-07] MEDS ORDERED: BRIMONIDINE TARTRATE OP SCH (21:00)
== END 2020-12-07 15:35 | DRG 521 ==
LOC: ED 10:08 → 3E 13:05 → SUATTDRO 13:05 → 3E 13:51

== ENCOUNTER 2021-08-04 19:03 | Inpatient (IN) ==
--- NOTE | 2021-08-04 20:01 | Emergency Department Note ---
Impression & Plan TEMO (acute kidney injury), Anemia ED Provider Note NAME: JAMES BOWERS AGE: 85 SEX: M : 1935 ARRIVES VIA: Walk-In INFORMANT: Patient ED PROVIDER(S): Kong Ribera DO CHIEF COMPLAINT: sent in by PCP HPI: Patient is an 85-year-old male who is following with his PCP and is set to have surgery on his right leg tomorrow by Dr. Iglesias. They are checking his creatinine as an outpatient and he was referred to the ER as his creatinine was slightly elevated. His PCP sent him into get IV fluids today. He denies any headache or change in vision. No chest pain or shortness of breath. No nausea, vomiting, or diarrhea. No dysuria, urgency, or frequency. No new pain in the leg. He has no other complaints at this time. ROS: See above HPI for pertinent positives & negatives. A total of 10 systems reviewed and were otherwise negative. PAST MEDICAL HISTORY:See Below PAST SURGICAL HISTORY:See Below FAMILY HISTORY:See Below SOCIAL HISTORY:See Below HOME MEDICATIONS:See Below ALLERGIES:See Below VITALS:See Below PHYSICAL EXAMINATION: GENERAL: Sitting up in bed, alert, well appearing, well nourished, no distress, non-toxic EYE EXAM: normal conjunctiva. OROPHARYNX: no exudate, no erythema, lips, buccal mucosa, and tongue normal and mucous membranes are moist NECK: supple, no nuchal rigidity, no adenopathy, non-tender LUNGS: Clear to auscultation. Normal chest wall mechanics HEART: no murmurs, S1 normal and S2 normal ABDOMEN: abdomen soft, non-tender, normo-active bowel sounds, no masses, no rebound or guarding. UPPER EXTREMITIES: upper extremities are grossly normal. NEURO EXAM: Normal sensorium, cranial nerves II-XII grossly intact, normal speech, no gross weakness of arms, no gross weakness of legs. MEDICAL DECISION MAKING: Patient is a 5-year-old male who presents ER for above-stated complaint. IV was established blood work was obtained. Labs show a mild anemia at 11.5. No significant leukocytosis. BMP with a creatinine of 2.6 up from baseline of 1.2. LFTs bilirubin was unremarkable. He has no complaints. He was given IV fluids. Discussed with hospitalist for further observation. Discussed with Pt concerning signs and symptoms to watch out for. Pt was instructed to follow up with their PCP and discussed with the patient their option to return to the ED at anytime for persistent or worsening symptoms. The appropriate anticipatory guidance and out-patient management, including indications for return to the emergency department, were explained at length to the patient and understood. Triage Nursing notes reviewed. Limited review of prior medical records performed Vital Signs: reviewed and remarkable for no significant abnormalities Differential diagnosis: Infection, dehydration, metabolic abnormality, hypo/hyperglycemia, electrolyte disturbance, anemia, hypoxia, cardiac sources, intracerebral event, toxicologic, neurologic, as well as other pathologies. ER treatment provided: See below Diagnostics interpreted by me: ECG: none Cardiac Monitoring: An order was placed for continuous cardiac monitoring. The monitor shows a rate of 72 with sinus rhythm. Laboratory studies: As stated above and show below. 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 Glaucoma Gouty arthritis prednisone taper 07/19/2021 by PCP for suspected gout, persistent discoloration and pain of toes-abnormal CTA with upcoming vascular surgery History of anesthesia reaction was confused, felt like his bed was on the wall, the clock was on the floor, after approx half hr, resolved History of blood transfusion 2009 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 [facility] complete Hypercholesterolemia Hypertension Impaired fasting glucose 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, fall in setting of seizure activity, HTN; follows with [facility] neuro d/c from neurosurgery: monitoring f/u imaging to further rule out vascular malformations and "aid in diagnosis of CAA should there be progression of micro-hemorrhages" Lumbar spinal stenosis Peripheral vascular disease Pulmonary hypertension mild 2018 echo Pulmonary nodule to have biopsy through [facility] IR 03/2021, not yet completed per records Sacroiliitis Sciatica of left side gets steroid injections Seizure 03/02/2021, fall in setting of seizure activity, HTN; follows with [facility] neuro d/c from neurosurgery: monitoring f/u imaging to further rule out vascular malformations and "aid in diagnosis of CAA should there be progression of micro-hemorrhages" Skin lesion of left ear 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 Post-op anesthesia progress note: "...was hypertensive on arrival to PACU so was treated with labetalol. He remains hypertensive but his blood pressure is lower than it was at his preoperative baseline. His other vital signs are stable." H/O aorto-femoral bypass (~2009) [address] Alfaro H/O transurethral resection of prostate History of colonoscopy History of esophagogastroduodenoscopy (EGD) with dilation Hx of non-cataract eye surgery left eye x3 for retina issues Loss of teeth due to extraction Status post aortic bifurcation bypass graft History of Bypass Graft (Non-Vein) Aortic-bifemoral > 2009 > [facility] Status post appendectomy Status post cataract surgery bilat Status post tonsillectomy and adenoidectomy Family History Sister Breast cancer Diabetes Father Parkinsons disease Prostate cancer Mother Diabetes Denies family history of Ovarian cancer Myocardial infarction Lung cancer Colorectal cancer Social History Smoking Status: Former smoker Tobacco Type: Cigarettes Age Started Using Tobacco: 14; Age Quit Using Tobacco: 64; packs per day: 1; Second Hand Exposure: No; Hx Alcohol Use: No Hx Substance Use: No Preferred Language: Estonian Communication Ability: Effective Visual Impairment: Limited Hearing Ability: Normal Adult Nurse Practitioner Required: No Beliefs That Will Affect Care: None marital status: Current Living Situation: Alone Current Living Situation Comment: Lives in own home and can live on one floor current occupational status: retired Feels Safe at Home: Yes Childhood Exposure to Second-Hand Smoke: No caffeine: Yes Dental Care, Regularly: No Physical Activity Frequency: 5-6 Times per Week Seatbelt Use: always Sunscreen Use: No Assistive Devices: Walker Allergies Allergies Allergy/AdvReac Type Severity Reaction Status Date / Time baclofen Allergy Unknown Unknown Verified 08/04/21 07:58 carvedilol Allergy Unknown Unknown Verified 08/04/21 07:58 clozapine Allergy Unknown unknown Verified 08/04/21 07:58 haloperidol Allergy Unknown unknown Verified 08/04/21 07:58 metoclopramide Allergy Unknown Unknown Verified 08/04/21 07:58 Phenothiazines Allergy Unknown unkonwn Verified 08/04/21 07:58 Home Meds Home Medications Medication Instructions Recorded Confirmed multivitamin 1 tab PO QAM 02/11/18 08/04/21 brimonidine 0.2 %-timolol 0.5 % 1 drops OP BID 11/12/18 08/04/21 eye drops (Combigan) loratadine 10 mg tablet (Claritin) 10 mg PO DAILY PRN 06/11/20 08/04/21 psyllium husk 3.4 gram/5.4 gram 1 tbsp PO QAM 06/11/20 08/04/21 oral powder (Metamucil) allopurinol 100 mg tablet 100 mg PO QDD 08/04/21 08/04/21 amlodipine 5 mg tablet 5 mg PO QDD 08/04/21 08/04/21 aspirin 81 mg tablet,delayed 81 mg PO QAM 08/04/21 08/04/21 release omeprazole 20 mg capsule,delayed 20 mg PO QAM 08/04/21 08/04/21 release Previous Rx's Medication Instructions Recorded colchicine 0.6 mg tablet (Colcrys) 0.6 mg PO DAILY PRN #90 tab 05/15/19 pravastatin 80 mg tablet 80 mg PO HS #90 tab 11/15/20 sildenafil (pulm.hypertension) 20 See Rx Instructions PO .COMPLEX 11/15/20 mg tablet #20 tab acetaminophen 325 mg capsule 650 mg PO Q4H PRN #100 cap 12/24/20 levetiracetam 500 mg tablet 500 mg PO BID #60 tab 04/01/21 (Keppra) clonidine HCl 0.2 mg tablet 0.1 mg PO BID #60 tab 04/05/21 Results & Data (ED) Vital Signs Vital Signs - 24 hr 08/04/21 19:11 08/04/21 19:47 08/04/21 20:03 Temperature 36.6 C 36.8 C Temperature Source Temporal Artery Scan Oral Pulse Rate 76 65 Pulse Rate [Left] 66 Pulse Rhythm Regular Pulse Rhythm [Left] Regular Pulse Strength [Left] Normal Respiratory Rate 16 18 18 Respiratory Effort / Characteristics Non-Labored Spontaneous Respiratory Depth Normal Respiratory Pattern Regular Blood Pressure [Right Arm] 138/83 Blood Pressure Mean [Right Arm] 101 Blood Pressure Position Sitting Blood Pressure Position [Right Arm] Lying Pulse Oximetry 92 95 96 Oxygen Delivery Method Room Air Room Air Room Air Sepsis Recent Fever Within 48 Hours No Sepsis New/Unexplained Change in Mental Status No Sepsis Action Taken by Nursing No Action Required 08/04/21 21:00 Temperature Temperature Source Pulse Rate Pulse Rate [Left] 78 Pulse Rhythm Pulse Rhythm [Left] Regular Pulse Strength [Left] Normal Respiratory Rate 18 Respiratory Effort / Characteristics Non-Labored Spontaneous Respiratory Depth Normal Respiratory Pattern Regular Blood Pressure [Right Arm] 138/83 Blood Pressure Mean [Right Arm] 101 Blood Pressure Position Blood Pressure Position [Right Arm] Lying Pulse Oximetry 95 Oxygen Delivery Method Room Air Sepsis Recent Fever Within 48 Hours Sepsis New/Unexplained Change in Mental Status Sepsis Action Taken by Nursing Laboratory Data Result diagrams: 08/04/21 20:09 08/04/21 20:09 Lab Results 08/04/21 08/04/21 08/04/21 Range/Units 20:09 20:09 20:09 WBC 10.10 (4.8-10.8) K/uL RBC 3.64 L (4.7-6.1) M/uL Hgb 11.5 L (14.0-18.0) g/dL Hct 33.1 L (42-52) % MCV 90.9 (80-100) fL MCH 31.6 (25-34) pg MCHC 34.7 (32-36) g/dL RDW Std Deviation 43.7 (36.4-46.3) fL RDW Coeff of Pepe 13.2 (11.5-14.5) % Plt Count 174 (130-400) K/uL MPV 10.8 H (7.4-10.4) fL Immature Gran % (Auto) 0.2 % Neut % (Auto) 76.7 % Lymph % (Auto) 9.0 % [place] % (Auto) 11.5 % Eos % (Auto) 2.5 % Baso % (Auto) 0.1 % Neut # (Auto) 7.75 H (1.4-6.5) K/uL Lymph # (Auto) 0.91 L (1.2-3.4) K/uL [place] # (Auto) 1.16 H (0.11-0.59) K/uL Eos # (Auto) 0.25 (0-0.5) K/uL Baso # (Auto) 0.01 (0-0.2) K/uL Immature Gran # (Auto) 0.02 (0.00-0.02) K/uL PT 10.7 (9.0-12.0) Seconds INR 1.0 (0.9-1.1) APTT 29.2 (21.0-31.0) Seconds PTT Ratio 1.1 Sodium 131 L (136-145) mmol/L Potassium 4.7 (3.5-5.1) mmol/L Chloride 100 (98-107) mmol/L Carbon Dioxide 23 (21-32) mmol/L Anion Gap 8 (3-11) BUN 41 H (6-23) mg/dl Creatinine 2.63 H (0.6-1.4) mg/dl Est Cr Clr Drug Dosing 19.4 ml/min Est GFR ( Amer) 24.3 ml/min Est GFR (Non-Af Amer) 20.9 ml/min BUN/Creatinine Ratio 15.6 (10-20) Glucose 109 H (70-99(Fasting)) mg/dl Calcium 8.9 (8.5-10.1) mg/dl Phosphorus (2.5-4.9) mg/dl Magnesium (1.7-2.4) mg/dl Total Bilirubin 0.5 (0.2-1.0) mg/dl AST 11 L (13-39) U/L ALT 10 (7-52) U/L Alkaline Phosphatase 71 (34-104) U/L Total Creatine Kinase (30-223) U/L Total Protein 6.4 (6.0-8.3) gm/dl Albumin 3.8 (3.4-5.0) gm/dl Globulin 2.6 (2.5-4.0) gm/dl Albumin/Globulin Ratio 1.5 (0.9-2) 08/04/21 Range/Units 20:09 WBC (4.8-10.8) K/uL RBC (4.7-6.1) M/uL Hgb (14.0-18.0) g/dL Hct (42-52) % MCV (80-100) fL MCH (25-34) pg MCHC (32-36) g/dL RDW Std Deviation (36.4-46.3) fL RDW Coeff of Pepe (11.5-14.5) % Plt Count (130-400) K/uL MPV (7.4-10.4) fL Immature Gran % (Auto) % Neut % (Auto) % Lymph % (Auto) % [place] % (Auto) % Eos % (Auto) % Baso % (Auto) % Neut # (Auto) (1.4-6.5) K/uL Lymph # (Auto) (1.2-3.4) K/uL [place] # (Auto) (0.11-0.59) K/uL Eos # (Auto) (0-0.5) K/uL Baso # (Auto) (0-0.2) K/uL Immature Gran # (Auto) (0.00-0.02) K/uL PT (9.0-12.0) Seconds INR (0.9-1.1) APTT (21.0-31.0) Seconds PTT Ratio Sodium (136-145) mmol/L Potassium (3.5-5.1) mmol/L Chloride (98-107) mmol/L Carbon Dioxide (21-32) mmol/L Anion Gap (3-11) BUN (6-23) mg/dl Creatinine (0.6-1.4) mg/dl Est Cr Clr Drug Dosing ml/min Est GFR ( Amer) ml/min Est GFR (Non-Af Amer) ml/min BUN/Creatinine Ratio (10-20) Glucose (70-99(Fasting)) mg/dl Calcium (8.5-10.1) mg/dl Phosphorus 3.4 (2.5-4.9) mg/dl Magnesium 2.2 (1.7-2.4) mg/dl Total Bilirubin (0.2-1.0) mg/dl AST (13-39) U/L ALT (7-52) U/L Alkaline Phosphatase (34-104) U/L Total Creatine Kinase 69 (30-223) U/L Total Protein (6.0-8.3) gm/dl Albumin (3.4-5.0) gm/dl Globulin (2.5-4.0) gm/dl Albumin/Globulin Ratio (0.9-2) Discharge Plan Visit Data Chief Complaint: Testing Request Stated Complaint: HERE FOR FLUIDS ED Provider: Kong Ribera Discharge Problem: TEMO (acute kidney injury), Anemia
[2021-08-04 20:19] LABS: Basophils # (auto) 0.01 K/uL (0-0.2); Basophils % (auto) 0.1 %; Eosinophils # (auto) 0.25 K/uL (0-0.5); Eosinophils % (auto) 2.5 %; Hematocrit (blood only) 33.1 % (42-52); Hemoglobin 11.5 g/dL (14.0-18.0); Immature Granulocytes # (auto) 0.02 K/uL (0.00-0.02); Immature Granulocytes % (auto) 0.2 %; Lymphocytes # (auto) 0.91 K/uL (1.2-3.4); Mean Corpuscular Hemoglobin 31.6 pg (25-34); Mean Corpuscular Hgb Conc 34.7 g/dL (32-36); Mean Corpuscular Volume 90.9 fL (80-100); Mean Platelet Volume 10.8 fL (7.4-10.4); Monocytes # (auto) 1.16 K/uL (0.11-0.59); Monocytes % (auto) 11.5 %; Neutrophils # (auto) 7.75 K/uL (1.4-6.5); Neutrophils % (auto) 76.7 %; Platelet Count 174 K/uL (130-400); RDW Coefficient of Variation 13.2 % (11.5-14.5); RDW Standard Deviation 43.7 fL (36.4-46.3); Red Blood Count 3.64 M/uL (4.7-6.1)
[2021-08-04 20:41] LABS: Albumin Globulin Ratio 1.5 (0.9-2); Albumin Level 3.8 gm/dl (3.4-5.0); BUN Creatinine Ratio 15.6 (10-20); Bilirubin,Total 0.5 mg/dl (0.2-1.0); Calcium 8.9 mg/dl (8.5-10.1); Creatinine Clr Calc Pharmacy 19.4 ml/min; Est GFR (African American) 24.3 ml/min; Est GFR (Non-African American) 20.9 ml/min; Globulin 2.6 gm/dl (2.5-4.0); Potassium 4.7 mmol/L (3.5-5.1); Total Protein 6.4 gm/dl (6.0-8.3)
--- NOTE | 2021-08-04 21:35 | History & Physical Report ---
Date of Service August 04, 2021 Assessment & Plan (1) Chronic kidney disease, stage III (moderate): Plan: 85yo male with history of CKD-III, HTN, HLP, PAD presenting with TEMO on CKD. Patient is to have RLE angiogram performed tomorrow with possible intervention/groin cut down by Dr. Iglesias. Patient with dusky toes and pain on RLE ongoing for several weeks, CTA Aorta with runoff performed 08/01/21 demonstrated extensive atherosclerosis with occlusion and distal reconstitution of the right SFA. Pre-operative testing revealed worsening renal function. Possible etiologies include recent treatment with steroids and Colchicine. ?contrast induced nepropathy -Admit to medical -Check UA, urine Na and Cr for FeNA calculation, CK total -Monitor UOP -Gentle IVF with LR at 100mL/hr -Repeat chemistry in AM -Avoid nephrotoxic agents -Renal dosing where needed (2) Discoloration of skin of toe: Plan: Patient with several weeks of distal toe pain and discoloration. Known PAD s/p aorto-bifemoral grafting. Recent CTA with runoff demonstrated occlusion in the right SFA. Patient is to have angiogram with possible intervention performed by Vascular Surgery after acute issues resolve. Consideration of embolic etiology given initial bilateral nature of dusky toes. -Heparin gtt initiated -Continue ASA and Atorvastatin -Will check 2D echo to assess for intracardiac thrombus -No CTA given renal dysfunction -Vascular Surgery consultation appreciated -Will keep patient NPO after midnight should renal function drastically improve by tomorrow -Pain control with Tylenol PRN -Oxycodone 5mg po q 4 hours PRN -Bowel regimen with PRN Colace and Miralx (3) Hypertension: Plan: Blood pressure well controlled. Presently 138/83 -Pain control as above -Continue Amlodipine 5mg po daily -Continue Clonidine 0.1mg po BID (4) Hypercholesterolemia: Plan: Chronic -Continue Pravastatin 80mg po qHS (5) Seizure: Plan: Stable on medications -Continue Keppra 500mg po BID (6) COPD with emphysema: Plan: Stable. No cough, SOB or wheeze. Adequate oxygenation on room air. Patient does not feel that he has COPD -Monitor (7) Acid reflux: Plan: Chronic -Continue Pepcid 20mg po daily while inpatient (8) Gouty arthritis: Plan: Chronic. Stable on medications. -Continue Allopurinol (9) Pulmonary nodule: Plan: Patient found to have a RUL pulmonary nodule. Abnormal PET scan on 02/16/21 showed marked FDG uptake - 1.3cm spiculated RUL pulmonary nodule. Findings suggestive of primary bronchogenic carcinoma. No PET/CT evidence of metastatic disease. Patient and daughter are aware of this diagnosis. They are to followup for biopsy. Patient unfortunately had some other health issues take precedence in February 2021 - fell secondary to seizure activity and suffered intraparenchymal hemorrhage -Encourage timely followup and further diagnostics when acute issues resolve Plan: F/E/N - LR at 100mL/hr x 2 liters, electrolytes WNL - monitor Na, NPO for now Bowel regimen with Colace and Miralax PRN. Patient states he gets easily constipated with pain medication Ppx - Heparin gtt as above Code - Full per discussion with patient Dispo - Admit to medical History of Present Illness Chief Complaint: worsening renal function Primary Care Provider: Carlos Manuel Harris MD Mr. Baron Bliss is a pleasant 85yo male with history of HTN, HLP, COPD, GERD, COPD and Seizure disorder presenting with worsening renal function. Patient was seen by Vascular Surgery on 08/02/21 with complaint of blue toes bilaterally. Patient noted acute onset of bilateral toe pain approximately 6 weeks ago. He was treated with colchicine and a 9 day steroid taper for presumed gout. His toes on the left improved, however, the right toes stayed blue and painful. He was seen at [facility] on 08/01/21 and had a CTA of the abdomen and pelvis with bilateral lower extremity runoff which showed a patent aortobifemoral graft and a short segment occlusion of the right distal superficial femoral artery. He was therefore referred to Vascular Surgery and was scheduled to have angiography of the RLE performed tomorrow. Patient had lab work performed which revealed elevation of BUN and Cr from baseline. BUN of 41 <--(35 on 08/03) <--(22 on 08/01/21) and Cr of 2.63 <--(2.4 on 08/03) <-- (1.29 on 08/01/21). He reports he is eating and drinking well. No dehydration. He is urinating without difficulty, clear yellow urine without blood or foam. He was recently started on Clonidine for blood pressure management, otherwise, no medication changes. He does not typically take NSAIDS but did take 2 Advil earlier today. Patient did have CTA of the aorta with runoff - contrast load administered 08/01/21. He is complaining of pain in his right toes, worse when laying down. No additional complaints. Specifically denies fever, chills, chest pain, cough, SOB, abdominal pain, nausea, vomiting, diarrhea. He does have occasional constipation which is unchanged. He has had a good appetite and is eating and drinking per usual. In the ER he is afebrile, HD stable, NAD. Labs and images as below Allergies Allergy/AdvReac Type Severity Reaction Status Date / Time baclofen Allergy Unknown Unknown Verified 08/04/21 07:58 carvedilol Allergy Unknown Unknown Verified 08/04/21 07:58 clozapine Allergy Unknown unknown Verified 08/04/21 07:58 haloperidol Allergy Unknown unknown Verified 08/04/21 07:58 metoclopramide Allergy Unknown Unknown Verified 08/04/21 07:58 Phenothiazines Allergy Unknown unkonwn Verified 08/04/21 07:58 Home Medications Medication Instructions Recorded Confirmed Type multivitamin 1 tab PO QAM 02/11/18 08/04/21 History brimonidine 0.2 %-timolol 0.5 % 1 drops OP BID 11/12/18 08/04/21 History eye drops (Combigan) colchicine 0.6 mg tablet (Colcrys) 0.6 mg PO DAILY PRN #90 tab 05/15/19 08/04/21 Rx loratadine 10 mg tablet (Claritin) 10 mg PO DAILY PRN 06/11/20 08/04/21 History psyllium husk 3.4 gram/5.4 gram 1 tbsp PO QAM 06/11/20 08/04/21 History oral powder (Metamucil) pravastatin 80 mg tablet 80 mg PO HS #90 tab 11/15/20 08/04/21 Rx sildenafil (pulm.hypertension) 20 See Rx Instructions PO .COMPLEX 11/15/20 08/04/21 Rx mg tablet #20 tab acetaminophen 325 mg capsule 650 mg PO Q4H PRN #100 cap 12/24/20 08/04/21 Rx levetiracetam 500 mg tablet 500 mg PO BID #60 tab 04/01/21 08/04/21 Rx (Keppra) clonidine HCl 0.2 mg tablet 0.1 mg PO BID #60 tab 04/05/21 08/04/21 Rx allopurinol 100 mg tablet 100 mg PO QDD 08/04/21 08/04/21 History amlodipine 5 mg tablet 5 mg PO QDD 08/04/21 08/04/21 History aspirin 81 mg tablet,delayed 81 mg PO QAM 08/04/21 08/04/21 History release omeprazole 20 mg capsule,delayed 20 mg PO QAM 08/04/21 08/04/21 History release Past Med/Surg History Medical History (Updated 08/04/21 @ 10:21 by Beryl Watson PA-C) Acid reflux Benign prostatic hypertrophy Chronic kidney disease, stage III (moderate) no specialist per pt COPD with emphysema pt 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 Glaucoma Gouty arthritis prednisone taper 07/19/2021 by PCP for suspected gout, persistent discoloration and pain of toes-abnormal CTA with upcoming vascular surgery History of anesthesia reaction was confused, felt like his bed was on the wall, the clock was on the floor, after approx half hr, resolved History of blood transfusion 2009 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 [facility] complete Hypercholesterolemia Hypertension Impaired fasting glucose 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, fall in setting of seizure activity, HTN; follows with [facility] neuro d/c from neurosurgery: monitoring f/u imaging to further rule out vascular malformations and "aid in diagnosis of CAA should there be progression of micro-hemorrhages" Lumbar spinal stenosis Peripheral vascular disease Pulmonary hypertension mild 2018 echo Pulmonary nodule to have biopsy through [facility] IR 03/2021, not yet completed per records Sacroiliitis Sciatica of left side gets steroid injections Seizure 03/02/2021, fall in setting of seizure activity, HTN; follows with [facility] neuro d/c from neurosurgery: monitoring f/u imaging to further rule out vascular malformations and "aid in diagnosis of CAA should there be progression of micro-hemorrhages" Skin lesion of left ear 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 Post-op anesthesia progress note: "...was hypertensive on arrival to PACU so was treated with labetalol. He remains hypertensive but his blood pressure is lower than it was at his preoperative baseline. His other vital signs are stable." H/O aorto-femoral bypass (~2009) [address] Alfaro H/O transurethral resection of prostate History of colonoscopy History of esophagogastroduodenoscopy (EGD) with dilation Hx of non-cataract eye surgery left eye x3 for retina issues Loss of teeth due to extraction Status post aortic bifurcation bypass graft History of Bypass Graft (Non-Vein) Aortic-bifemoral > 2009 > [facility] Status post appendectomy Status post cataract surgery bilat Status post tonsillectomy and adenoidectomy Family History Sister Breast cancer Diabetes Father Parkinsons disease Prostate cancer Mother Diabetes Denies family history of Ovarian cancer Myocardial infarction Lung cancer Colorectal cancer Social History Smoking Status: Former smoker Tobacco Type: Cigarettes Age Started Using Tobacco: 14; Age Quit Using Tobacco: 64; packs per day: 1; Second Hand Exposure: No; Hx Alcohol Use: No Hx Substance Use: No Preferred Language: Maltese Communication Ability: Effective Visual Impairment: Limited Hearing Ability: Normal [facility] Assistant Director Required: No Beliefs That Will Affect Care: None marital status: Current Living Situation: Alone Current Living Situation Comment: Lives in own home and can live on one floor current occupational status: retired Feels Safe at Home: Yes Childhood Exposure to Second-Hand Smoke: No caffeine: Yes Dental Care, Regularly: No Physical Activity Frequency: 5-6 Times per Week Seatbelt Use: always Sunscreen Use: No Assistive Devices: Walker Review of Systems Review of Systems: All systems reviewed & are unremarkable except as noted in HPI & below Physical Exam Physical Exam: General: patient resting comfortably, NAD, non-toxic in appearance, AA&O x 4 Skin: warm, dry, intact, no rashes or lesions HEENT: NC/AT, PERRL, EOMI, anicteric sclera, conjunctiva without injection, external ear normal to inspection and nontender, nares patent, moist mucus membranes, dentition intact, no oropharyngeal lesions, neck supple, trachea midline, no LAD, no thyromegaly, no JVD Heart: +S1/S2, regular, no m/r/g Lungs: equal air entry bilaterally, no rales/rhonchi/wheezes Abd: +BS, soft, NT/ND, no masses/organomegaly/ascites Ext: bilateral LE slightly cool to touch, sensation and mobility intact, dusky discoloration of distal toes of the right foot. Some mottling of right great toe. No palpable pulses. Neuro: nonfocal, patient AA&O x 4, speech intact, no facial droop, moving all extremities on command with equal strength 5/5 Results & Data Results & Data ([facility]) Vital Signs (Past 12 Hours) Vital Signs Temp Pulse Pulse Resp BP Pulse Ox 08/04/21 21:00 78 18 138/83 95 08/04/21 20:03 65 18 96 08/04/21 19:47 36.8 C 66 18 138/83 95 08/04/21 19:11 36.6 C 76 16 92 Laboratory Results Laboratory Results WBC 10.10 K/uL (4.8-10.8) 08/04/21 20:09 RBC 3.64 M/uL (4.7-6.1) L 08/04/21 20:09 Hgb 11.5 g/dL (14.0-18.0) L 08/04/21 20:09 Hct 33.1 % (42-52) L 08/04/21 20:09 MCV 90.9 fL (80-100) 08/04/21 20:09 MCH 31.6 pg (25-34) 08/04/21 20:09 MCHC 34.7 g/dL (32-36) 08/04/21 20:09 RDW Std Deviation 43.7 fL (36.4-46.3) 08/04/21 20:09 RDW Coeff of Pepe 13.2 % (11.5-14.5) 08/04/21 20:09 Plt Count 174 K/uL (130-400) 08/04/21 20:09 MPV 10.8 fL (7.4-10.4) H 08/04/21 20:09 Immature Gran % (Auto) 0.2 % 08/04/21 20:09 Neut % (Auto) 76.7 % 08/04/21 20:09 Lymph % (Auto) 9.0 % 08/04/21 20:09 Webb % (Auto) 11.5 % 08/04/21 20:09 Eos % (Auto) 2.5 % 08/04/21 20:09 Baso % (Auto) 0.1 % 08/04/21 20:09 Neut # (Auto) 7.75 K/uL (1.4-6.5) H 08/04/21 20:09 Lymph # (Auto) 0.91 K/uL (1.2-3.4) L 08/04/21 20:09 Webb # (Auto) 1.16 K/uL (0.11-0.59) H 08/04/21 20:09 Eos # (Auto) 0.25 K/uL (0-0.5) 08/04/21 20:09 Baso # (Auto) 0.01 K/uL (0-0.2) 08/04/21 20:09 Immature Gran # (Auto) 0.02 K/uL (0.00-0.02) 08/04/21 20:09 PT 10.7 Seconds (9.0-12.0) 08/04/21 20:09 INR 1.0 (0.9-1.1) 08/04/21 20:09 APTT 29.2 Seconds (21.0-31.0) 08/04/21 20:09 PTT Ratio 1.1 08/04/21 20:09 Sodium 131 mmol/L (136-145) L 08/04/21 20:09 Potassium 4.7 mmol/L (3.5-5.1) 08/04/21 20:09 Chloride 100 mmol/L (98-107) 08/04/21 20:09 Carbon Dioxide 23 mmol/L (21-32) 08/04/21 20:09 Anion Gap 8 (3-11) 08/04/21 20:09 BUN 41 mg/dl (6-23) H 08/04/21 20:09 Creatinine 2.63 mg/dl (0.6-1.4) H 08/04/21 20:09 Est Cr Clr Drug Dosing 19.4 ml/min 08/04/21 20:09 Est GFR ( Amer) 24.3 ml/min 08/04/21 20:09 Est GFR (Non-Af Amer) 20.9 ml/min 08/04/21 20:09 BUN/Creatinine Ratio 15.6 (10-20) 08/04/21 20:09 Glucose 109 mg/dl (70-99(Fasting)) H 08/04/21 20:09 Calcium 8.9 mg/dl (8.5-10.1) 08/04/21 20:09 Phosphorus 3.4 mg/dl (2.5-4.9) 08/04/21 20:09 Magnesium 2.2 mg/dl (1.7-2.4) 08/04/21 20:09 Total Bilirubin 0.5 mg/dl (0.2-1.0) 08/04/21 20:09 AST 11 U/L (13-39) L 08/04/21 20:09 ALT 10 U/L (7-52) 08/04/21 20:09 Alkaline Phosphatase 71 U/L (34-104) 08/04/21 20:09 Total Creatine Kinase 69 U/L (30-223) 08/04/21 20:09 Total Protein 6.4 gm/dl (6.0-8.3) 08/04/21 20:09 Albumin 3.8 gm/dl (3.4-5.0) 08/04/21 20:09 Globulin 2.6 gm/dl (2.5-4.0) 08/04/21 20:09 Albumin/Globulin Ratio 1.5 (0.9-2) 08/04/21 20:09 Code Status & VTE Plan VTE Prophylaxis Plan VTE Prophylaxis will be ordered: Yes PG Care Time/CCT Total # of Minutes Spent Total Time Spent with Patient: Total time spent is greater than 50% in coordination of care (as documented) at patient's floor/unit and/or counseling patient: Coding Level of Care Code 59734 Initial Inpt Care Lvl 3 Diagnoses COPD with emphysema J43.9 Pulmonary nodule R91.1 Seizure R56.9 Discoloration of skin of toe L81.9 Chronic kidney disease, stage III (moderate) N18.3 Acid reflux K21.9 Hypercholesterolemia E78.00 Hypertension I10 Gouty arthritis M10.9
[2021-08-04 22:07] LABS: Partial Thromboplastin Ratio 1.1; Partial Thromboplastin Time 29.2 Seconds (21.0-31.0); Prothrombin Time 10.7 Seconds (9.0-12.0)
[2021-08-04] MEDS ORDERED: ONDANSETRON INJ 2 MG/ML 2 ML VIAL IV PRN (22:53)
[2021-08-04] MEDS ORDERED: DOCUSATE SODIUM 100 MG CAP PO PRN (22:53)
[2021-08-04] MEDS ORDERED: Heparin IV Adult Wt-Based Standard *NO* Bolus Protocol IV SCH (22:53)
[2021-08-04] MEDS ORDERED: POLYETHYLENE (MIRALAX) 17 GM PACK PO PRN (22:53)
[2021-08-04 23:18] LABS: Magnesium 2.2 mg/dl (1.7-2.4); Phosphorus 3.4 mg/dl (2.5-4.9)
[2021-08-05] MEDS: LACTATED RINGER'S 1,000 ML IV SCH ×2 (00:01→09:54)
[2021-08-05] MEDS: HEPARIN SODIUM/DEXTROSE 25,000 UNITS/500 ML BAG IV SCH (00:03)
[2021-08-05 00:49] LABS: Appearance Urine Clear (Clear); Bilirubin Urine Negative (Negative); Blood Urine Negative (Negative); Color Urine Yellow; Glucose Urine UA Negative (Negative); Ketones Urine Negative (Negative); Leukocyte Esterase Urine Negative (Negative); Nitrite Urine Negative (Negative); Protein Urine Negative (Negative); Specific Gravity Urine 1.008 (1.000-1.030); Urobilinogen Urine Negative (Negative); pH Urine 7.5 (4.5-7.5)
[2021-08-05 01:10] LABS: Creatinine Urine Random 32.6 mg/dl
[2021-08-05] MEDS: oxyCODONE HCL IR 5 MG TAB (IMMEDIATE RELEASE) PO PRN (04:07)
[2021-08-05 07:29] LABS: Basophils # (auto) 0.01 K/uL (0-0.2); Basophils % (auto) 0.1 %; Eosinophils # (auto) 0.27 K/uL (0-0.5); Eosinophils % (auto) 2.8 %; Hematocrit (blood only) 35.3 % (42-52); Hemoglobin 12.4 g/dL (14.0-18.0); Immature Granulocytes # (auto) 0.01 K/uL (0.00-0.02); Immature Granulocytes % (auto) 0.1 %; Lymphocytes # (auto) 1.26 K/uL (1.2-3.4); Lymphocytes % (auto) 12.8 %; Mean Corpuscular Hemoglobin 31.9 pg (25-34); Mean Corpuscular Hgb Conc 35.1 g/dL (32-36); Mean Corpuscular Volume 90.7 fL (80-100); Mean Platelet Volume 11.2 fL (7.4-10.4); Monocytes # (auto) 1.17 K/uL (0.11-0.59); Monocytes % (auto) 11.9 %; Neutrophils # (auto) 7.09 K/uL (1.4-6.5); Neutrophils % (auto) 72.3 %; Platelet Count 200 K/uL (130-400); RDW Coefficient of Variation 13.1 % (11.5-14.5); RDW Standard Deviation 43.5 fL (36.4-46.3); Red Blood Count 3.89 M/uL (4.7-6.1); White Blood Count 9.81 K/uL (4.8-10.8)
[2021-08-05 07:46] LABS: Partial Thromboplastin Ratio 3.3; Prothrombin Time 10.8 Seconds (9.0-12.0)
[2021-08-05 07:52] LABS: BUN Creatinine Ratio 16.9 (10-20); Calcium 9.2 mg/dl (8.5-10.1); Creatinine Clr Calc Pharmacy 21.4 ml/min; Est GFR (African American) 30.3 ml/min; Est GFR (Non-African American) 26.1 ml/min; Potassium 4.4 mmol/L (3.5-5.1)
[2021-08-05 08:13] LABS: Partial Thromboplastin Time 91.5 Seconds (21.0-31.0)
[2021-08-05] MEDS: ASPIRIN 81 MG ECTAB PO SCH (09:08)
[2021-08-05] MEDS: FAMOTIDINE 20 MG TAB PO SCH (09:09)
[2021-08-05] MEDS: levETIRAcetam 500 MG TAB PO SCH ×2 (09:09→20:46)
[2021-08-05] MEDS: cloNIDine HCL 0.1 MG TAB PO SCH ×2 (09:09→20:46)
--- NOTE | 2021-08-05 10:17 | Hospitalist Progress Note ---
Date of Service August 05, 2021 Assessment & Plan (1) Chronic kidney disease, stage III (moderate): Plan: 85yo male with history of CKD-III, HTN, HLP, PAD presenting with TEMO on CKD. (Was to have RLE angiogram performed 08/05 with possible intervention/groin cut down by Dr. Iglesias) but was having outpatient labs to check on his renal function pre-operatively which indicated worsening renal function * Patient with dusky toes and pain on RLE ongoing for several weeks, CTA Aorta with runoff performed 08/01/21 demonstrated extensive atherosclerosis with occlusion and distal reconstitution of the right SFA. Possible etiologies include recent treatment with steroids and Colchicine along with ?contrast induced nephropathy given he had CTAngio on Sunday for eval with Dr Iglesias Acute TEMO on CKD Cr elevated to 2.86 on admission (was 2.4 on 08/03) CK wnl Fena calculated to 2.2%, ATN/AIN, could be obstructive and will check renal US for completeness UOP acceptable Cr improved to 2.19 on AM labs Continue IVF but decreased to 70cc/hr as no intervention planned given continued elevation in creatinine, although improved Avoid nephrotoxic agents and renally dose medications as needed Check Renal U/S Consult nephrology -- appreciate assistance Monitor renal function/electrolytes and replacement as needed (2) Discoloration of skin of toe: Plan: Patient with several weeks of distal toe pain and discoloration. Known PAD s/p aorto-bifemoral grafting. Recent CTA with runoff demonstrated occlusion in the right SFA. Patient is to have angiogram with possible intervention performed by Vascular Surgery after acute issues resolve. Consideration of embolic etiology given initial bilateral nature of dusky toes. ECHO ordered * LV systolic function normal. Mild concentric LVH. RV mild-moderately dilated. LA mildly dilated. Aortic valve sclerosis moderate, without significant valvular stenosis. Mild mitral annular calcification. RV systolic pressure elevated at 55-60mmhg Will ask RN to see if someone able to bring in his sildenafil given his pulm HTN -- daughter to bring in later today Heparin gtt initiated by admitting team -- discussed with vascular and can continue as ordered for now No CTA given renal dysfunction Vascular consulted -- no current intervention given Cr still >2, will plan on next week Pain control, bowel regimen NPO cancelled and ordered diet Continued inpatient stay/tx of TEMO as above (3) Hypertension: Plan: BP acceptable Continue amlodipine 5mg, clonidine 0.1mg BID Monitor (4) Hypercholesterolemia: Plan: Chronic Continue Pravastatin 80mg po qHS CK wnl (5) Seizure: Plan: Stable on medications Continue Keppra 500mg po BID (6) COPD with emphysema: Plan: Stable. No cough, SOB or wheeze. Adequate oxygenation on room air. Patient does not feel that he has COPD but is to be on sildenafil for pulm HTN Asked RN to see if family able to bring in medication He does note he takes OTC medications for allergy symptoms On room air currently, no cough/sputum production or shortness of breath reported Monitor (7) Acid reflux: Plan: Chronic Continue Pepcid 20mg po daily while inpatient no issues reported (8) Gouty arthritis: Plan: Chronic. Stable on medications. -Continue Allopurinol, reduce to 50mg daily for now given gfr 30-60 (9) Pulmonary nodule: Plan: Patient found to have a RUL pulmonary nodule. Abnormal PET scan on 02/16/21 showed marked FDG uptake - 1.3cm spiculated RUL pulmonary nodule. Findings suggestive of primary bronchogenic carcinoma. No PET/CT evidence of metastatic disease. Patient and daughter are aware of this diagnosis and they are to follow up for biopsy. Unfortunately, patient had other health issues in Feb 2021, felt 2nd to seizure and suffered intraparenchymal hemorrhage Encourage timely followup and further diagnostics when acute issues resolve Plan: continued inpatient stay Admission and Anticipated Discharge Date Admission Date: August 04, 2021 Supervising Physician Co-Signing Physician Notes PA Supervision Note: I did not personally see or examine the patient today, but I verified all [place] points of AALIYAH Banuelos's assessment and plan with the following exceptions/additions: None Subjective patient evaluated this morning doing well, pain to R foot but tolerable states the toes had all been black prior so he does think they look somewhat improved. still painful though but sensation intact seen by Dr Kelsie FISCHER this morning and no plans for angio at this time due to continued elevated Cr will continue IV hydration, feed for today and monitor progress states urine is pretty clear in color, denied any prior tea/cocacola discoloration. possible consideration early next week however also possible to d/c and do later in the week. questions/concerns addressed at this time. No fever, chills, chest pain, shortness of beath, nausea at this time. Will order diet. Review of Systems Review of Systems: All systems reviewed & are unremarkable except as noted in HPI & below Physical Exam Physical Exam: General: patient resting comfortably, NAD, non-toxic in appearance, AA&O x 4 Skin: warm, dry, intact (see ext) HEENT: head normocephalic, atraumatic, mm slightly dry, trachea midline without deviation Resp: CTAB, diminished in the bases, no wheezing, on room air CV: RRR, +systolic murmur 2/6, no rub/gallop, no calf edema, abn posterior tibial/DP pulses with some pedal edema L>R, cap refill delayed GI: +BS, soft, non-tender : no [place] MSK/Neuro: NVI, CN intact grossly, speech clear, answers questions appropriately mottling/duskiness of R foot 1-5 digits with mottling of R great toe, small scab to dorsal aspect 2nd toe, prior scab to tip, minimally tender to palpation). pulses not able to be palpated Psych: alert, oriented x 3, pleasant and cooperative Results & Data Results & Data ([facility]) Vital Signs (Past 12 Hours) Vital Signs Temp Pulse Resp BP BP Pulse Ox 08/05/21 09:06 73 178/81 H 08/05/21 08:08 36.6 C 78 16 180/73 H 91 08/04/21 22:53 36.4 C L 86 18 171/74 H 91 Laboratory Results 08/05/21 08/05/21 08/05/21 Range/Units 06:31 06:31 06:31 WBC 9.81 (4.8-10.8) K/uL RBC 3.89 L (4.7-6.1) M/uL Hgb 12.4 L (14.0-18.0) g/dL Hct 35.3 L (42-52) % MCV 90.7 (80-100) fL MCH 31.9 (25-34) pg MCHC 35.1 (32-36) g/dL RDW Std Deviation 43.5 (36.4-46.3) fL RDW Coeff of Pepe 13.1 (11.5-14.5) % Plt Count 200 (130-400) K/uL MPV 11.2 H (7.4-10.4) fL Immature Gran % (Auto) 0.1 % Neut % (Auto) 72.3 % Lymph % (Auto) 12.8 % [place] % (Auto) 11.9 % Eos % (Auto) 2.8 % Baso % (Auto) 0.1 % Neut # (Auto) 7.09 H (1.4-6.5) K/uL Lymph # (Auto) 1.26 (1.2-3.4) K/uL [place] # (Auto) 1.17 H (0.11-0.59) K/uL Eos # (Auto) 0.27 (0-0.5) K/uL Baso # (Auto) 0.01 (0-0.2) K/uL Immature Gran # (Auto) 0.01 (0.00-0.02) K/uL PT 10.8 (9.0-12.0) Seconds INR 1.0 (0.9-1.1) APTT 91.5 H* (21.0-31.0) Seconds PTT Ratio 3.3 Sodium 136 (136-145) mmol/L Potassium 4.4 (3.5-5.1) mmol/L Chloride 103 (98-107) mmol/L Carbon Dioxide 22 (21-32) mmol/L Anion Gap 11 (3-11) BUN 37 H (6-23) mg/dl Creatinine 2.19 H D (0.6-1.4) mg/dl Est Cr Clr Drug Dosing 21.4 ml/min Est GFR ( Amer) 30.3 ml/min Est GFR (Non-Af Amer) 26.1 ml/min BUN/Creatinine Ratio 16.9 (10-20) Glucose 103 H (70-99(Fasting)) mg/dl Calcium 9.2 (8.5-10.1) mg/dl Phosphorus (2.5-4.9) mg/dl Magnesium (1.7-2.4) mg/dl Total Bilirubin (0.2-1.0) mg/dl AST (13-39) U/L ALT (7-52) U/L Alkaline Phosphatase (34-104) U/L Total Creatine Kinase (30-223) U/L Total Protein (6.0-8.3) gm/dl Albumin (3.4-5.0) gm/dl Globulin (2.5-4.0) gm/dl Albumin/Globulin Ratio (0.9-2) Urine Color Urine Appearance (Clear) Urine pH (4.5-7.5) Ur Specific [place] (1.000-1.030) Urine Protein (Negative) Urine Glucose (UA) (Negative) Urine Ketones (Negative) Urine Blood (Negative) Urine Nitrite (Negative) Urine Bilirubin (Negative) Urine Urobilinogen (Negative) Ur Leukocyte Esterase (Negative) Ur Random Creatinine mg/dl Ur Random Sodium mmol/L 08/05/21 08/05/21 08/04/21 Range/Units 00:35 00:35 20:09 WBC (4.8-10.8) K/uL RBC (4.7-6.1) M/uL Hgb (14.0-18.0) g/dL Hct (42-52) % MCV (80-100) fL MCH (25-34) pg MCHC (32-36) g/dL RDW Std Deviation (36.4-46.3) fL RDW Coeff of Pepe (11.5-14.5) % Plt Count (130-400) K/uL MPV (7.4-10.4) fL Immature Gran % (Auto) % Neut % (Auto) % Lymph % (Auto) % [place] % (Auto) % Eos % (Auto) % Baso % (Auto) % Neut # (Auto) (1.4-6.5) K/uL Lymph # (Auto) (1.2-3.4) K/uL [place] # (Auto) (0.11-0.59) K/uL Eos # (Auto) (0-0.5) K/uL Baso # (Auto) (0-0.2) K/uL Immature Gran # (Auto) (0.00-0.02) K/uL PT (9.0-12.0) Seconds INR (0.9-1.1) APTT (21.0-31.0) Seconds PTT Ratio Sodium (136-145) mmol/L Potassium (3.5-5.1) mmol/L Chloride (98-107) mmol/L Carbon Dioxide (21-32) mmol/L Anion Gap (3-11) BUN (6-23) mg/dl Creatinine (0.6-1.4) mg/dl Est Cr Clr Drug Dosing ml/min Est GFR ( Amer) ml/min Est GFR (Non-Af Amer) ml/min BUN/Creatinine Ratio (10-20) Glucose (70-99(Fasting)) mg/dl Calcium (8.5-10.1) mg/dl Phosphorus 3.4 (2.5-4.9) mg/dl Magnesium 2.2 (1.7-2.4) mg/dl Total Bilirubin (0.2-1.0) mg/dl AST (13-39) U/L ALT (7-52) U/L Alkaline Phosphatase (34-104) U/L Total Creatine Kinase 69 (30-223) U/L Total Protein (6.0-8.3) gm/dl Albumin (3.4-5.0) gm/dl Globulin (2.5-4.0) gm/dl Albumin/Globulin Ratio (0.9-2) Urine Color Yellow Urine Appearance Clear (Clear) Urine pH 7.5 (4.5-7.5) Ur Specific [place] 1.008 (1.000-1.030) Urine Protein Negative (Negative) Urine Glucose (UA) Negative (Negative) Urine Ketones Negative (Negative) Urine Blood Negative (Negative) Urine Nitrite Negative (Negative) Urine Bilirubin Negative (Negative) Urine Urobilinogen Negative (Negative) Ur Leukocyte Esterase Negative (Negative) Ur Random Creatinine 32.6 mg/dl Ur Random Sodium 44 mmol/L 08/04/21 08/04/21 08/04/21 Range/Units 20:09 20:09 20:09 WBC 10.10 (4.8-10.8) K/uL RBC 3.64 L (4.7-6.1) M/uL Hgb 11.5 L (14.0-18.0) g/dL Hct 33.1 L (42-52) % MCV 90.9 (80-100) fL MCH 31.6 (25-34) pg MCHC 34.7 (32-36) g/dL RDW Std Deviation 43.7 (36.4-46.3) fL RDW Coeff of Pepe 13.2 (11.5-14.5) % Plt Count 174 (130-400) K/uL MPV 10.8 H (7.4-10.4) fL Immature Gran % (Auto) 0.2 % Neut % (Auto) 76.7 % Lymph % (Auto) 9.0 % [place] % (Auto) 11.5 % Eos % (Auto) 2.5 % Baso % (Auto) 0.1 % Neut # (Auto) 7.75 H (1.4-6.5) K/uL Lymph # (Auto) 0.91 L (1.2-3.4) K/uL [place] # (Auto) 1.16 H (0.11-0.59) K/uL Eos # (Auto) 0.25 (0-0.5) K/uL Baso # (Auto) 0.01 (0-0.2) K/uL Immature Gran # (Auto) 0.02 (0.00-0.02) K/uL PT 10.7 (9.0-12.0) Seconds INR 1.0 (0.9-1.1) APTT 29.2 (21.0-31.0) Seconds PTT Ratio 1.1 Sodium 131 L (136-145) mmol/L Potassium 4.7 (3.5-5.1) mmol/L Chloride 100 (98-107) mmol/L Carbon Dioxide 23 (21-32) mmol/L Anion Gap 8 (3-11) BUN 41 H (6-23) mg/dl Creatinine 2.63 H (0.6-1.4) mg/dl Est Cr Clr Drug Dosing 19.4 ml/min Est GFR ( Amer) 24.3 ml/min Est GFR (Non-Af Amer) 20.9 ml/min BUN/Creatinine Ratio 15.6 (10-20) Glucose 109 H (70-99(Fasting)) mg/dl Calcium 8.9 (8.5-10.1) mg/dl Phosphorus (2.5-4.9) mg/dl Magnesium (1.7-2.4) mg/dl Total Bilirubin 0.5 (0.2-1.0) mg/dl AST 11 L (13-39) U/L ALT 10 (7-52) U/L Alkaline Phosphatase 71 (34-104) U/L Total Creatine Kinase (30-223) U/L Total Protein 6.4 (6.0-8.3) gm/dl Albumin 3.8 (3.4-5.0) gm/dl Globulin 2.6 (2.5-4.0) gm/dl Albumin/Globulin Ratio 1.5 (0.9-2) Urine Color Urine Appearance (Clear) Urine pH (4.5-7.5) Ur Specific [place] (1.000-1.030) Urine Protein (Negative) Urine Glucose (UA) (Negative) Urine Ketones (Negative) Urine Blood (Negative) Urine Nitrite (Negative) Urine Bilirubin (Negative) Urine Urobilinogen (Negative) Ur Leukocyte Esterase (Negative) Ur Random Creatinine mg/dl Ur Random Sodium mmol/L Diagnostic Findings ECHO LV systolic function normal. Mild concentric LVH. RV mild-moderately dilated. LA mildly dilated. Aortic valve sclerosis moderate, without significant valvular stenosis. Mild mitral annular calcification. RV systolic pressure elevated at 55-60mmhg PG Care Time/CCT Total # of Minutes Spent Total Time Spent with Patient: Total time spent is greater than 50% in coordination of care (as documented) at patient's floor/unit and/or counseling patient: Coding Level of Care Code 79819 Subseq Hosp Care Lvl 3 Diagnoses Chronic kidney disease, stage III (moderate) N18.3 Discoloration of skin of toe L81.9 Hypertension I10 Hypercholesterolemia E78.00 Seizure R56.9 COPD with emphysema J43.9 Acid reflux K21.9 Gouty arthritis M10.9 Pulmonary nodule R91.1
--- NOTE | 2021-08-05 10:55 | Consultation ---
Date of Consultation August 05, 2021 Assessment & Plan (1) Peripheral vascular disease: Pt with hx of severe PAD and currently with sx of ischemia of R toes. Was scheduled for angio today, however, this will be cancelled and planning on rescheduling next week, depending on recovery of renal fxn. Will reeval Sunday morning. Please call if needed. History of Present Illness Reason for Consultation: PAD Attending Physician: Lexi Ramirez MD History of Present Illness 85 yo m with multiple medical problems, including CKD, COPD, severe PAD requiring aortobifemoral bypass, lumbar spinal stenosis, HTN, hypercholesterolemia, glaucoma, pulmonary nodule, admitted with acute kidney injury, seen in consultation today for PAD. Pt originally presented to Dr Iglesias earlier this week for toe discoloration and was scheduled for an angio with intervention in OR today. Pt states occasional pain in toes, but states it is feeling slightly better than a few days ago. States he has relief of pain when standing. Admits claudication. Denies FERNADNES, fever, chest pain, SOB, abd pain, N/V, other new complaints. Allergies Allergy/AdvReac Type Severity Reaction Status Date / Time baclofen Allergy Unknown Unknown Verified 08/04/21 07:58 carvedilol Allergy Unknown Unknown Verified 08/04/21 07:58 clozapine Allergy Unknown unknown Verified 08/04/21 07:58 haloperidol Allergy Unknown unknown Verified 08/04/21 07:58 metoclopramide Allergy Unknown Unknown Verified 08/04/21 07:58 Phenothiazines Allergy Unknown unkonwn Verified 08/04/21 07:58 Home Medications Medication Instructions Recorded Confirmed Type multivitamin 1 tab PO QAM 02/11/18 08/04/21 History brimonidine 0.2 %-timolol 0.5 % 1 drops OP BID 11/12/18 08/04/21 History eye drops (Combigan) colchicine 0.6 mg tablet (Colcrys) 0.6 mg PO DAILY PRN #90 tab 05/15/19 08/04/21 Rx loratadine 10 mg tablet (Claritin) 10 mg PO DAILY PRN 06/11/20 08/04/21 History psyllium husk 3.4 gram/5.4 gram 1 tbsp PO QAM 06/11/20 08/04/21 History oral powder (Metamucil) pravastatin 80 mg tablet 80 mg PO HS #90 tab 11/15/20 08/04/21 Rx sildenafil (pulm.hypertension) 20 See Rx Instructions PO .COMPLEX 11/15/20 0 08/04/21 Rx mg tablet #20 tab acetaminophen 325 mg capsule 650 mg PO Q4H PRN #100 cap 12/24/20 08/04/21 Rx levetiracetam 500 mg tablet 500 mg PO BID #60 tab 04/01/21 08/04/21 Rx (Keppra) clonidine HCl 0.2 mg tablet 0.1 mg PO BID #60 tab 04/05/21 08/04/21 Rx allopurinol 100 mg tablet 100 mg PO QDD 08/04/21 08/04/21 History amlodipine 5 mg tablet 5 mg PO QDD 08/04/21 08/04/21 History aspirin 81 mg tablet,delayed 81 mg PO QAM 08/04/21 08/04/21 History release omeprazole 20 mg capsule,delayed 20 mg PO QAM 08/04/21 08/04/21 History release Patient History Medical History Acid reflux Benign prostatic hypertrophy Chronic kidney disease, stage III (moderate) no specialist per pt COPD with emphysema pt 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 Glaucoma Gouty arthritis prednisone taper 07/19/2021 by PCP for suspected gout, persistent discoloration and pain of toes-abnormal CTA with upcoming vascular surgery History of anesthesia reaction was confused, felt like his bed was on the wall, the clock was on the floor, after approx half hr, resolved History of blood transfusion 2009 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 [facility] complete Hypercholesterolemia Hypertension Impaired fasting glucose 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, fall in setting of seizure activity, HTN; follows with [facility] neuro d/c from neurosurgery: monitoring f/u imaging to further rule out vascular malformations and "aid in diagnosis of CAA should there be progression of micro-hemorrhages" Lumbar spinal stenosis Peripheral vascular disease Pulmonary hypertension mild 2018 echo Pulmonary nodule to have biopsy through [facility] IR 03/2021, not yet completed per records Sacroiliitis Sciatica of left side gets steroid injections Seizure 03/02/2021, fall in setting of seizure activity, HTN; follows with [facility] neuro d/c from neurosurgery: monitoring f/u imaging to further rule out vascular malformations and "aid in diagnosis of CAA should there be progression of micro-hemorrhages" Skin lesion of left ear 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 Post-op anesthesia progress note: "...was hypertensive on arrival to PACU so was treated with labetalol. He remains hypertensive but his blood pressure is lower than it was at his preoperative baseline. His other vital signs are stable." H/O aorto-femoral bypass (~2009) [address] Alfaro H/O transurethral resection of prostate History of colonoscopy History of esophagogastroduodenoscopy (EGD) with dilation Hx of non-cataract eye surgery left eye x3 for retina issues Loss of teeth due to extraction Status post aortic bifurcation bypass graft History of Bypass Graft (Non-Vein) Aortic-bifemoral > 2009 > [facility] Status post appendectomy Status post cataract surgery bilat Status post tonsillectomy and adenoidectomy Family History Sister Breast cancer Diabetes Father Parkinsons disease Prostate cancer Mother Diabetes Denies family history of Ovarian cancer Myocardial infarction Lung cancer Colorectal cancer Social History Smoking Status: Former smoker Tobacco Type: Cigarettes Age Started Using Tobacco: 14; Age Quit Using Tobacco: 64; packs per day: 1; Second Hand Exposure: No; Hx Alcohol Use: No Hx Substance Use: No Preferred Language: Chinese Communication Ability: Effective Visual Impairment: Limited Hearing Ability: Normal Personal Lines Appraiser Required: No Beliefs That Will Affect Care: None marital status: Current Living Situation: Alone Current Living Situation Comment: Lives in own home and can live on one floor current occupational status: retired Feels Safe at Home: Yes Childhood Exposure to Second-Hand Smoke: No caffeine: Yes Dental Care, Regularly: No Physical Activity Frequency: 5-6 Times per Week Seatbelt Use: always Sunscreen Use: No Assistive Devices: Walker and Wheelchair Review of Systems Review of Systems: All systems reviewed & are unremarkable except as noted in HPI & below Physical Exam Constitutional: WD/WN, vitals as above cooperative and comfortable; not in distress ENMT: Ears: no hearing impairment Neck: trachea midline Respiratory: normal respiratory effort; no respiratory distress Auscultation: lungs clear to auscultation bilaterally and + diminished lung sounds Cardiovascular: Rate/Rhythm: regular rate and regular rhythm Vessels: femoral pulses present and radial pulses present; + posterior tibial pulses abnormal and + dorsalis pedis pulses abnormal Extremities: + edema (mild); + abnormal capillary refill Gastrointestinal (Abdomen): Inspection/Auscultation: abdomen normal to inspection and normal bowel sounds Percussion/Palpation: abdomen soft; abdomen nontender Musculoskeletal: Extremities: strength 5/5 throughout Skin: + mottling (R toes 1-5. ) Neurologic: moves all extremities and awake; no focal motor deficits and not confused Psychiatric: A+Ox3, euthymic affect Results & Data ([facility]) Vital Signs (Past 12 Hours) Vital Signs Temp Pulse Resp BP BP Pulse Ox 08/05/21 09:06 73 178/81 H 08/05/21 08:08 36.6 C 78 16 180/73 H 91 08/04/21 22:53 36.4 C L 86 18 171/74 H 91
--- NOTE | 2021-08-05 12:45 | XCELERA ---
[id number]
[2021-08-05 15:19] LABS: Partial Thromboplastin Ratio 2.4
[2021-08-05 15:25] LABS: Partial Thromboplastin Time 66.4 Seconds (21.0-31.0)
[2021-08-05] MEDS: allopurinoL 100 MG TAB PO SCH (16:27)
[2021-08-05] MEDS ORDERED: allopurinoL 100 MG TAB PO SCH (16:30)
[2021-08-05] MEDS ORDERED: amLODIPine BESYLATE 5 MG TAB PO SCH ×2 (16:30→18:00)
--- NOTE | 2021-08-05 18:29 | Nephrology Consultation ---
Date of Consultation August 05, 2021 Assessment & Plan (1) TEMO (acute kidney injury): Clinically consistent with contrast induced nephropathy and ATN. UA bland and microscopy acellular. Kidneys unobstructed on CT from 08/01. Non-oliguric. Medications appropriate for kidney function. Electrolytes acceptable. No indication for ORDER ANALYST at this time. Creatinine starting to demonstrate early evidence of renal recovery. (2) Chronic kidney disease, stage III (moderate): Baseline creatinine 1.3 mg/dL. Negative for protein. Findings suggestive of notable renovascular disease on imaging. Outpatient follow up encouraged. KDIGO staging and classification reviewed. (3) Hypertension: Amlodipine increased to 10 mg daily. Remains on clonidine 0.1 BID. (4) Arterial vascular disease: Angiography delayed pending renal recovery. Hopefully will be able to proceed with vascular intervention next week. (5) Renal cyst: Can be identified on PET CT from February 2021. Outpatient follow up. No additional evaluation required at this time. History of Present Illness Reason for Consultation: TEMO/CKD Requesting Physician: Lexi Ramirez MD Attending Physician: Lexi Ramirez MD History of Present Illness Mr. Baron Bliss is an 85-year-old male with chronic kidney class III A1. UA bland and acellular. Renal US demonstrates atrophic kidneys L>R with notable calcific vascular disease and a exophytic cyst on the right. Baseline creatinine ~1.3 mg/dL, as recently as 08/01. He was admitted to [facility] today with acute kidney injury. Baron presented for angiography for distal ischemia of the right foot. Vascular intervention was canceled due to kidney dysfunction. He initially presented to the ER on 08/01 with pain and discoloration of the feet. CTA with runoff demonstrated extensive atherosclerosis with occlusion in the right SFA. Follow up with Dr. Iglesias was arranged. Baron was treated for symptoms of toe discoloration and pain several weeks ago with a course of steroids and colchicine for suspected gout. Serum creatinine was 2.4 mg/dL on 07/06 and peaked at 2.6 yesterday. Creatinine 2.2 mg/dL today. Baron is non-oliguric. Electrolytes acceptable. He does not routinely take NSAIDS but did take 2 Advil prior to admission. Aside from pain in his feet, Baron feels well. He does not have any fluid retention or edema. He is breathing comfortably. No chest pain or palpitations. Medical history is notable for seizure disorder, COPD, PAD with history of aortobifem bypass, lumbar spinal stenosis, hypertension, hyperlipidemia, pulmonary nodule with PET CT in February consistent with bronchogenic CA. TTE demonstrating mild to moderate LVH with normal LVEF. RVSP 50-60. Allergies Allergy/AdvReac Type Severity Reaction Status Date / Time baclofen Allergy Unknown Unknown Verified 08/04/21 07:58 carvedilol Allergy Unknown Unknown Verified 08/04/21 07:58 clozapine Allergy Unknown unknown Verified 08/04/21 07:58 haloperidol Allergy Unknown unknown Verified 08/04/21 07:58 metoclopramide Allergy Unknown Unknown Verified 08/04/21 07:58 Phenothiazines Allergy Unknown unkonwn Verified 08/04/21 07:58 Home Medications Medication Instructions Recorded Confirmed Type multivitamin 1 tab PO QAM 02/11/18 08/04/21 History brimonidine 0.2 %-timolol 0.5 % 1 drops OP BID 11/12/18 08/04/21 History eye drops (Combigan) colchicine 0.6 mg tablet (Colcrys) 0.6 mg PO DAILY PRN #90 tab 05/15/19 08/04/21 Rx loratadine 10 mg tablet (Claritin) 10 mg PO DAILY PRN 06/11/20 08/04/21 History psyllium husk 3.4 gram/5.4 gram 1 tbsp PO QAM 06/11/20 08/04/21 History oral powder (Metamucil) pravastatin 80 mg tablet 80 mg PO HS #90 tab 11/15/20 08/04/21 Rx sildenafil (pulm.hypertension) 20 See Rx Instructions PO .COMPLEX 11/15/20 08/04/21 Rx mg tablet #20 tab acetaminophen 325 mg capsule 650 mg PO Q4H PRN #100 cap 12/24/20 08/04/21 Rx levetiracetam 500 mg tablet 500 mg PO BID #60 tab 04/01/21 08/04/21 Rx (Keppra) clonidine HCl 0.2 mg tablet 0.1 mg PO BID #60 tab 04/05/21 08/04/21 Rx allopurinol 100 mg tablet 100 mg PO QDD 08/04/21 08/04/21 History amlodipine 5 mg tablet 5 mg PO QDD 08/04/21 08/04/21 History aspirin 81 mg tablet,delayed 81 mg PO QAM 08/04/21 08/04/21 History release omeprazole 20 mg capsule,delayed 20 mg PO QAM 08/04/21 08/04/21 History release Patient History Medical History (Updated 08/05/21 @ 18:52 by Pierre La DO) Acid reflux TEMO (acute kidney injury) Benign prostatic hypertrophy Chronic kidney disease, stage III (moderate) no specialist per pt COPD with emphysema pt 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 Glaucoma Gouty arthritis prednisone taper 07/19/2021 by PCP for suspected gout, persistent discoloration and pain of toes-abnormal CTA with upcoming vascular surgery History of anesthesia reaction was confused, felt like his bed was on the wall, the clock was on the floor, after approx half hr, resolved History of blood transfusion 2009 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 [facility] complete Hypercholesterolemia Hypertension Impaired fasting glucose 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, fall in setting of seizure activity, HTN; follows with [facility] neuro d/c from neurosurgery: monitoring f/u imaging to further rule out vascular malformations and "aid in diagnosis of CAA should there be progression of micro-hemorrhages" Lumbar spinal stenosis Peripheral vascular disease Pulmonary hypertension mild 2018 echo Pulmonary nodule to have biopsy through [facility] IR 03/2021, not yet completed per records Sacroiliitis Sciatica of left side gets steroid injections Seizure 03/02/2021, fall in setting of seizure activity, HTN; follows with [facility] neuro d/c from neurosurgery: monitoring f/u imaging to further rule out vascular malformations and "aid in diagnosis of CAA should there be progression of micro-hemorrhages" Skin lesion of left ear 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 Post-op anesthesia progress note: "...was hypertensive on arrival to PACU so was treated with labetalol. He remains hypertensive but his blood pressure is lower than it was at his preoperative baseline. His other vital signs are stable." H/O aorto-femoral bypass (~2009) [address] Alfaro H/O transurethral resection of prostate History of colonoscopy History of esophagogastroduodenoscopy (EGD) with dilation Hx of non-cataract eye surgery left eye x3 for retina issues Loss of teeth due to extraction Status post aortic bifurcation bypass graft History of Bypass Graft (Non-Vein) Aortic-bifemoral > 2009 > [facility] Status post appendectomy Status post cataract surgery bilat Status post tonsillectomy and adenoidectomy Family History Sister Breast cancer Diabetes Father Parkinsons disease Prostate cancer Mother Diabetes Denies family history of Ovarian cancer Myocardial infarction Lung cancer Colorectal cancer Social History Smoking Status: Former smoker Tobacco Type: Cigarettes Age Started Using Tobacco: 14; Age Quit Using Tobacco: 64; packs per day: 1; Second Hand Exposure: No; Hx Alcohol Use: No Hx Substance Use: No Preferred Language: Nepali Communication Ability: Effective Visual Impairment: Limited Hearing Ability: Normal Vegetable Inspector Required: No Beliefs That Will Affect Care: None marital status: Current Living Situation: Alone Current Living Situation Comment: Lives in own home and can live on one floor current occupational status: retired Feels Safe at Home: Yes Childhood Exposure to Second-Hand Smoke: No caffeine: Yes Dental Care, Regularly: No Physical Activity Frequency: 5-6 Times per Week Seatbelt Use: always Sunscreen Use: No Assistive Devices: Walker and Wheelchair Review of Systems Review of Systems: All systems reviewed & are unremarkable except as noted in HPI & below Physical Exam Constitutional: well developed and + thin; no acute distress Eyes: + anicteric sclerae; no conjunctival abnormality ENMT: Ears: + hearing impairment Neck: trachea midline Respiratory: normal respiratory effort; no respiratory distress Auscultation: lungs clear to auscultation bilaterally Cardiovascular: Rate/Rhythm: regular rate Heart Sounds: normal S1 and normal S2 Vessels: femoral pulses present and radial pulses present; + posterior tibial pulses abnormal and + dorsalis pedis pulses abnormal Extremities: + pedal edema; + abnormal capillary refill Gastrointestinal (Abdomen): Percussion/Palpation: abdomen soft; abdomen nontender Musculoskeletal: Extremities: no cyanosis and no clubbing Skin: + turgor decreased and + mottling Neurologic: moves all extremities and awake; no focal motor deficits and not confused Psychiatric: A+Ox3, euthymic affect Results & Data ([facility]) Vital Signs (Past 12 Hours) Vital Signs Temp Pulse Resp BP BP Pulse Ox 08/05/21 18:24 169/77 H 08/05/21 16:23 175/75 H 08/05/21 15:16 36.8 C 71 18 175/68 H 93 08/05/21 11:04 166/72 H 08/05/21 09:06 73 178/81 H 08/05/21 08:08 36.6 C 78 16 180/73 H 91 Laboratory Results Laboratory Results - last 24 hr 08/04/21 08/04/21 08/04/21 20:09 20:09 20:09 WBC 10.10 RBC 3.64 L Hgb 11.5 L Hct 33.1 L MCV 90.9 MCH 31.6 MCHC 34.7 RDW Std Deviation 43.7 RDW Coeff of Pepe 13.2 Plt Count 174 MPV 10.8 H Immature Gran % (Auto) 0.2 Neut % (Auto) 76.7 Lymph % (Auto) 9.0 Ritchie % (Auto) 11.5 Eos % (Auto) 2.5 Baso % (Auto) 0.1 Neut # (Auto) 7.75 H Lymph # (Auto) 0.91 L Ritchie # (Auto) 1.16 H Eos # (Auto) 0.25 Baso # (Auto) 0.01 Immature Gran # (Auto) 0.02 PT 10.7 INR 1.0 APTT 29.2 PTT Ratio 1.1 Sodium 131 L Potassium 4.7 Chloride 100 Carbon Dioxide 23 Anion Gap 8 BUN 41 H Creatinine 2.63 H Est Cr Clr Drug Dosing 19.4 Est GFR ( Amer) 24.3 Est GFR (Non-Af Amer) 20.9 BUN/Creatinine Ratio 15.6 Glucose 109 H Calcium 8.9 Phosphorus Magnesium Total Bilirubin 0.5 AST 11 L ALT 10 Alkaline Phosphatase 71 Total Creatine Kinase Total Protein 6.4 Albumin 3.8 Globulin 2.6 Albumin/Globulin Ratio 1.5 Urine Color Urine Appearance Urine pH Ur Specific [place] Urine Protein Urine Glucose (UA) Urine Ketones Urine Blood Urine Nitrite Urine Bilirubin Urine Urobilinogen Ur Leukocyte Esterase Ur Random Creatinine Ur Random Sodium 08/04/21 08/05/21 08/05/21 20:09 00:35 00:35 WBC RBC Hgb Hct MCV MCH MCHC RDW Std Deviation RDW Coeff of Pepe Plt Count MPV Immature Gran % (Auto) Neut % (Auto) Lymph % (Auto) Ritchie % (Auto) Eos % (Auto) Baso % (Auto) Neut # (Auto) Lymph # (Auto) Ritchie # (Auto) Eos # (Auto) Baso # (Auto) Immature Gran # (Auto) PT INR APTT PTT Ratio Sodium Potassium Chloride Carbon Dioxide Anion Gap BUN Creatinine Est Cr Clr Drug Dosing Est GFR ( Amer) Est GFR (Non-Af Amer) BUN/Creatinine Ratio Glucose Calcium Phosphorus 3.4 Magnesium 2.2 Total Bilirubin AST ALT Alkaline Phosphatase Total Creatine Kinase 69 Total Protein Albumin Globulin Albumin/Globulin Ratio Urine Color Yellow Urine Appearance Clear Urine pH 7.5 Ur Specific [place] 1.008 Urine Protein Negative Urine Glucose (UA) Negative Urine Ketones Negative Urine Blood Negative Urine Nitrite Negative Urine Bilirubin Negative Urine Urobilinogen Negative Ur Leukocyte Esterase Negative Ur Random Creatinine 32.6 Ur Random Sodium 44 08/05/21 08/05/21 08/05/21 06:31 06:31 06:31 WBC 9.81 RBC 3.89 L Hgb 12.4 L Hct 35.3 L MCV 90.7 MCH 31.9 MCHC 35.1 RDW Std Deviation 43.5 RDW Coeff of Pepe 13.1 Plt Count 200 MPV 11.2 H Immature Gran % (Auto) 0.1 Neut % (Auto) 72.3 Lymph % (Auto) 12.8 Ritchie % (Auto) 11.9 Eos % (Auto) 2.8 Baso % (Auto) 0.1 Neut # (Auto) 7.09 H Lymph # (Auto) 1.26 Ritchie # (Auto) 1.17 H Eos # (Auto) 0.27 Baso # (Auto) 0.01 Immature Gran # (Auto) 0.01 PT 10.8 INR 1.0 APTT 91.5 H* PTT Ratio 3.3 Sodium 136 Potassium 4.4 Chloride 103 Carbon Dioxide 22 Anion Gap 11 BUN 37 H Creatinine 2.19 H D Est Cr Clr Drug Dosing 21.4 Est GFR ( Amer) 30.3 Est GFR (Non-Af Amer) 26.1 BUN/Creatinine Ratio 16.9 Glucose 103 H Calcium 9.2 Phosphorus Magnesium Total Bilirubin AST ALT Alkaline Phosphatase Total Creatine Kinase Total Protein Albumin Globulin Albumin/Globulin Ratio Urine Color Urine Appearance Urine pH Ur Specific [place] Urine Protein Urine Glucose (UA) Urine Ketones Urine Blood Urine Nitrite Urine Bilirubin Urine Urobilinogen Ur Leukocyte Esterase Ur Random Creatinine Ur Random Sodium 08/05/21 14:44 WBC RBC Hgb Hct MCV MCH MCHC RDW Std Deviation RDW Coeff of Pepe Plt Count MPV Immature Gran % (Auto) Neut % (Auto) Lymph % (Auto) Ritchie % (Auto) Eos % (Auto) Baso % (Auto) Neut # (Auto) Lymph # (Auto) Ritchie # (Auto) Eos # (Auto) Baso # (Auto) Immature Gran # (Auto) PT INR APTT 66.4 H* PTT Ratio 2.4 Sodium Potassium Chloride Carbon Dioxide Anion Gap BUN Creatinine Est Cr Clr Drug Dosing Est GFR ( Amer) Est GFR (Non-Af Amer) BUN/Creatinine Ratio Glucose Calcium Phosphorus Magnesium Total Bilirubin AST ALT Alkaline Phosphatase Total Creatine Kinase Total Protein Albumin Globulin Albumin/Globulin Ratio Urine Color Urine Appearance Urine pH Ur Specific [place] Urine Protein Urine Glucose (UA) Urine Ketones Urine Blood Urine Nitrite Urine Bilirubin Urine Urobilinogen Ur Leukocyte Esterase Ur Random Creatinine Ur Random Sodium PG Care Time/CCT Total # of Minutes Spent Total Time Spent with Patient: Total time spent is greater than 50% in coordination of care (as documented) at patient's floor/unit and/or counseling patient: Coding Level of Care Code 20301 Inpt Consult Level 4 Diagnoses Arterial vascular disease I70.90 Chronic kidney disease, stage III (moderate) N18.3 TEMO (acute kidney injury) N17.9 Hypertension I10 Renal cyst N28.1
[2021-08-05] MEDS: PRAVASTATIN SOD 40 MG TAB PO SCH (20:45)
[2021-08-05] MEDS: BRIMONIDINE TARTRATE/TIMOLOL OP SCH (20:46)
[2021-08-06] MEDS: HEPARIN SODIUM/DEXTROSE 25,000 UNITS/500 ML BAG IV SCH (00:16)
[2021-08-06 05:38] LABS: Basophils # (auto) 0.02 K/uL (0-0.2); Basophils % (auto) 0.3 %; Eosinophils # (auto) 0.21 K/uL (0-0.5); Eosinophils % (auto) 2.8 %; Hematocrit (blood only) 36.8 % (42-52); Hemoglobin 12.7 g/dL (14.0-18.0); Lymphocytes % (auto) 13.4 %; Mean Corpuscular Hemoglobin 31.7 pg (25-34); Mean Corpuscular Hgb Conc 34.5 g/dL (32-36); Mean Corpuscular Volume 91.8 fL (80-100); Mean Platelet Volume 10.9 fL (7.4-10.4); Monocytes # (auto) 1.28 K/uL (0.11-0.59); Monocytes % (auto) 17.1 %; Neutrophils # (auto) 4.97 K/uL (1.4-6.5); Neutrophils % (auto) 66.4 %; Platelet Count 182 K/uL (130-400); RDW Coefficient of Variation 13.4 % (11.5-14.5); Red Blood Count 4.01 M/uL (4.7-6.1); White Blood Count 7.48 K/uL (4.8-10.8)
[2021-08-06 05:56] LABS: BUN Creatinine Ratio 14.8 (10-20); Calcium 9.2 mg/dl (8.5-10.1); Creatinine Clr Calc Pharmacy 25.8 ml/min; Est GFR (African American) 37.9 ml/min; Est GFR (Non-African American) 32.7 ml/min; Potassium 4.4 mmol/L (3.5-5.1)
[2021-08-06 06:29] LABS: Partial Thromboplastin Time 81.7 Seconds (21.0-31.0)
[2021-08-06] MEDS: BRIMONIDINE TARTRATE/TIMOLOL OP SCH ×2 (08:47→20:22)
[2021-08-06] MEDS: ASPIRIN 81 MG ECTAB PO SCH (08:48)
[2021-08-06] MEDS: levETIRAcetam 500 MG TAB PO SCH ×2 (08:48→20:22)
[2021-08-06] MEDS: FAMOTIDINE 20 MG TAB PO SCH (08:48)
[2021-08-06] MEDS: cloNIDine HCL 0.1 MG TAB PO SCH ×2 (08:48→20:21)
--- NOTE | 2021-08-06 09:07 | Hospitalist Progress Note ---
Date of Service August 06, 2021 Assessment & Plan (1) Chronic kidney disease, stage III (moderate): Plan: 85yo male with history of CKD-III, HTN, HLP, PAD presenting with TEMO on CKD. (Was to have RLE angiogram performed 08/05 with possible intervention/groin cut down by Dr. Iglesias) but was having outpatient labs to check on his renal function pre-operatively which indicated worsening renal function * Patient with dusky toes and pain on RLE ongoing for several weeks, CTA Aorta with runoff performed 08/01/21 demonstrated extensive atherosclerosis with occlusion and distal reconstitution of the right SFA. Possible etiologies include recent treatment with steroids and Colchicine, but suspect contrast induced nephropathy given he had CTAngio on Sunday for eval with Dr Iglesias Acute TEMO on CKD Cr elevated to 2.86 on admission (was 2.4 on 08/03) CK wnl Fena calculated to 2.2% Cr improved to 1.82 on AM labs Additional 1L LR @60cc/hr, encourage PO UOP acceptable Avoid nephrotoxic agents and renally dose medications as needed Consult nephrology -- appreciate assistance --> Increased amlodipine to 10mg daily Renal U/S without obstruction but does show PVR. will try dose of flomax, bladder scan as needed/monitor PVR Monitor renal function/electrolytes and replacement as needed (2) Discoloration of skin of toe: Plan: Patient with several weeks of distal toe pain and discoloration. Known PAD s/p aorto-bifemoral grafting. Recent CTA with runoff demonstrated occlusion in the right SFA. Patient is to have angiogram with possible intervention performed by Vascular Surgery after acute issues resolve. Consideration of embolic etiology given initial bilateral nature of dusky toes. ECHO ordered * LV systolic function normal. Mild concentric LVH. RV mild-moderately dilated. LA mildly dilated. Aortic valve sclerosis moderate, without significant valvular stenosis. Mild mitral annular calcification. RV systolic pressure elevated at 55-60mmhg No CTA given renal dysfunction Heparin gtt initiated by admitting team -- discussed with vascular and can continue as ordered for now through weekend Vascular consulted -- no current intervention given Cr still >2, will plan on next week Pain control, bowel regimen Continued inpatient stay/tx of TEMO as above (3) Hypertension: Plan: BP elevated but stable Nephrology increased amlodipine to 10mg daily Continues on clonidine 0.1mg BID and monitor Bp currently 173/69 this morning but didn't get medications yet (4) Hypercholesterolemia: Plan: Chronic Continue Pravastatin 80mg po qHS CK wnl (5) Seizure: Plan: Stable on medications Continue Keppra 500mg po BID (6) COPD with emphysema: Plan: Stable. No cough, SOB or wheeze. Adequate oxygenation on room air. Patient does not feel that he has COPD but is to be on sildenafil for pulm HTN Asked RN to see if family able to bring in medication He does note he takes OTC medications for allergy symptoms On room air currently, no cough/sputum production or shortness of breath reported Monitor (7) Acid reflux: Plan: Chronic Continue Pepcid 20mg po daily while inpatient no issues reported (8) Gouty arthritis: Plan: Chronic. Stable on medications. -Continue Allopurinol, reduced to 50mg daily for now given gfr 30-60 (9) Pulmonary nodule: Plan: Patient found to have a RUL pulmonary nodule. Abnormal PET scan on 02/16/21 showed marked FDG uptake - 1.3cm spiculated RUL pulmonary nodule. Findings suggestive of primary bronchogenic carcinoma. No PET/CT evidence of metastatic disease. Patient and daughter are aware of this diagnosis and they are to follow up for biopsy. Unfortunately, patient had other health issues in Feb 2021, felt 2nd to seizure and suffered intraparenchymal hemorrhage Encourage timely followup and further diagnostics when acute issues resolve Plan: continued inpatient stay Admission and Anticipated Discharge Date Admission Date: August 04, 2021 Supervising Physician Co-Signing Physician Notes PA Supervision Note: I did not personally see or examine the patient today, but I verified all [place] points of AALIYAH Banuelos's assessment and plan with the following exceptions/additions: would straight cath for PVR>400mL-ordered Subjective patient evaluated this morning doing well went down for an ultrasound this morning for kidneys, report pending states a mild headache today, requesting tylenol x 1 passing some gas but no bm states typically uses metamucil at home.No abd pain at this time just thinks he needs to get them moving. Discussed +BS on exam, but slightly hypoactive and will try some miralax and senna/docusate first. encourage some ambulation. can consider giving some metamucil tomorrow Cr improving. No questions/concerns at this time. Review of Systems Review of Systems: All systems reviewed & are unremarkable except as noted in HPI & below Physical Exam Physical Exam: General: patient resting comfortably, NAD, non-toxic in appearance, AA&O x 4 Skin: warm, dry, intact (see ext) HEENT: head normocephalic, atraumatic, mm slightly dry, trachea midline without deviation Resp: CTAB, diminished in the bases, no wheezing, on room air CV: RRR, +systolic murmur 2/6, no rub/gallop, no calf edema, abn posterior tibial/DP pulses with some pedal edema L>R, cap refill delayed GI: +BS, soft, non-tender : no [place]udson MSK/Neuro: NVI, CN intact grossly, speech clear, answers questions appropriately mottling/duskiness of R foot 1-5 digits with mottling of R great toe, small scab to dorsal aspect 2nd toe, prior scab to tip, minimally tender to palpation Psych: alert, oriented x 3, pleasant and cooperative Results & Data Results & Data ([facility]) Vital Signs (Past 12 Hours) Vital Signs Temp Pulse Resp BP Pulse Ox 08/06/21 07:36 36.6 C 81 16 173/69 H 91 08/05/21 23:19 37.2 C 52 L 16 136/50 L 93 Laboratory Results 08/06/21 08/06/21 08/06/21 Range/Units 05:22 05:22 05:22 WBC 7.48 (4.8-10.8) K/uL RBC 4.01 L (4.7-6.1) M/uL Hgb 12.7 L (14.0-18.0) g/dL Hct 36.8 L (42-52) % MCV 91.8 (80-100) fL MCH 31.7 (25-34) pg MCHC 34.5 (32-36) g/dL RDW Std Deviation 45.0 (36.4-46.3) fL RDW Coeff of Pepe 13.4 (11.5-14.5) % Plt Count 182 (130-400) K/uL MPV 10.9 H (7.4-10.4) fL Immature Gran % (Auto) 0.0 % Neut % (Auto) 66.4 % Lymph % (Auto) 13.4 % Eaton % (Auto) 17.1 % Eos % (Auto) 2.8 % Baso % (Auto) 0.3 % Neut # (Auto) 4.97 (1.4-6.5) K/uL Lymph # (Auto) 1.00 L (1.2-3.4) K/uL [place]aton # (Auto) 1.28 H (0.11-0.59) K/uL Eos # (Auto) 0.21 (0-0.5) K/uL Baso # (Auto) 0.02 (0-0.2) K/uL Immature Gran # (Auto) 0.00 (0.00-0.02) K/uL APTT 81.7 H* (21.0-31.0) Seconds PTT Ratio 3.0 Sodium 138 (136-145) mmol/L Potassium 4.4 (3.5-5.1) mmol/L Chloride 108 H (98-107) mmol/L Carbon Dioxide 23 (21-32) mmol/L Anion Gap 7 (3-11) BUN 27 H (6-23) mg/dl Creatinine 1.82 H D (0.6-1.4) mg/dl Est Cr Clr Drug Dosing 25.8 ml/min Est GFR ( Amer) 37.9 ml/min Est GFR (Non-Af Amer) 32.7 ml/min BUN/Creatinine Ratio 14.8 (10-20) Glucose 97 (70-99(Fasting)) mg/dl Calcium 9.2 (8.5-10.1) mg/dl 08/05/ Range/Units 14:44 WBC (4.8-10.8) K/uL RBC (4.7-6.1) M/uL Hgb (14.0-18.0) g/dL Hct (42-52) % MCV (80-100) fL MCH (25-34) pg MCHC (32-36) g/dL RDW Std Deviation (36.4-46.3) fL RDW Coeff of Pepe (11.5-14.5) % Plt Count (130-400) K/uL MPV (7.4-10.4) fL Immature Gran % (Auto) % Neut % (Auto) % Lymph % (Auto) % [place]aton % (Auto) % Eos % (Auto) % Baso % (Auto) % Neut # (Auto) (1.4-6.5) K/uL Lymph # (Auto) (1.2-3.4) K/uL Eaton # (Auto) (0.11-0.59) K/uL Eos # (Auto) (0-0.5) K/uL Baso # (Auto) (0-0.2) K/uL Immature Gran # (Auto) (0.00-0.02) K/uL APTT 66.4 H* (21.0-31.0) Seconds PTT Ratio 2.4 Sodium (136-145) mmol/L Potassium (3.5-5.1) mmol/L Chloride (98-107) mmol/L Carbon Dioxide (21-32) mmol/L Anion Gap (3-11) BUN (6-23) mg/dl Creatinine (0.6-1.4) mg/dl Est Cr Clr Drug Dosing ml/min Est GFR ( Amer) ml/min Est GFR (Non-Af Amer) ml/min BUN/Creatinine Ratio (10-20) Glucose (70-99(Fasting)) mg/dl Calcium (8.5-10.1) mg/dl Diagnostic Findings Renal Ultrasound 08/06/21 13:11 US renal/blad retro comp CLINICAL HISTORY: Chronic renal disease. TEMO. Evaluate for hydronephrosis.. COMPARISON: 08/01/2009 TECHNIQUE: Multiple grayscale and color images of the kidneys and bladder. FINDINGS: Right kidney: The kidney is atrophic and increased in echogenicity. There is no evidence for renal calculus or hydronephrosis. There is no evidence for solid re nal mass. There is an 8 mm lower pole cyst. Findings are characteristic of medical renal disease. The kidney measures 9.4 cm in greatest length. Left kidney: The kidney is atrophic and increased in echogenicity. There is no evidence for renal calculus or hydronephrosis. There is no evidence for solid renal mass. Findings are characteristic of medical renal disease. The kidney measures 9.4 cm in greatest length. Bladder: The patient reported voiding prior to the examination. However, there was still 447 mL postvoid residual. No bilateral ureteral jets couldn't be demonstrated. IMPRESSION: 1. Bilateral renal cortical atrophy and evidence for medical renal disease. 2. 447 mL post void residual. 3. No evidence for ureteral jets bilaterally. ACT 112: Negative or not required by law. Electronically signed by: Terry Mccoy M.D. 08/06/2021 11:03 AM PG Care Time/CCT Total # of Minutes Spent Total Time Spent with Patient: Total time spent is greater than 50% in coordination of care (as documented) at patient's floor/unit and/or counseling patient: Coding Level of Care Code 00608 Subseq Hosp Care Lvl 2 Diagnoses Chronic kidney disease, stage III (moderate) N18.3 Discoloration of skin of toe L81.9 Hypertension I10 Hypercholesterolemia E78.00 Seizure R56.9 COPD with emphysema J43.9 Acid reflux K21.9 Gouty arthritis M10.9 Pulmonary nodule R91.1
[2021-08-06] MEDS ORDERED: LACTATED RINGER'S 1,000 ML IV SCH (09:15)
--- NOTE | 2021-08-06 09:20 | Nephrology Progress Note ---
Date of Service August 06, 2021 Assessment & Plan (1) TEMO (acute kidney injury): Plan: * TEMO due to ROSMERY. UA bland, microscopy acellular. Kidneys unobstructed on 08/01/21 CT. * Non-oliguric. Electrolytes acceptable. No acute indication for SKY DIVER at this time. * Cr is trending down and nearing baseline. Continue gentle hydration * Will recheck PRP in am. Hold further IV contrast administration until Cr < or = 1.3 (2) Chronic kidney disease, stage III (moderate): Plan: * Baseline creatinine 1.3 mg/dL. CT reveals bilateral cortical atrophy suggestive of microvascular disease (3) Hypertension: Plan: * Amlodipine increased to 10 mg daily * Remains on clonidine 0.1 BID (4) Arterial vascular disease: Plan: * Angiography delayed pending renal recovery. Hopefully will be able to proceed with vascular intervention next week (5) Renal cyst: Plan: * Identified on PET CT from February 2021. Outpatient follow up. No additional evaluation required at this time Admission and Anticipated Discharge Date Admission Date: August 04, 2021 Subjective Mr. Bliss was evaluated in his hospital room this morning. He reports mild discomfort involving his R foot but voices no other medical concerns. He is currently on a heparin gtt and receiving IV LR at 80 cc/hr. Review of Systems Constitutional: no fever Eyes: no problem reported Ear, Nose, Mouth, Throat: no problem reported Respiratory: no cough and no dyspnea Cardiovascular: no chest pain, no palpitations and no edema Gastrointestinal: no abdominal pain, no nausea, no vomiting and no diarrhea/loose stools Genitourinary: no dysuria, no urinary hesitancy or no hematuria Musculoskeletal: no back pain Integumentary: no rash Neurologic: no confusion Physical Exam Constitutional: not in distress Eyes: PERRL, conjunctivae normal, anicteric sclerae ENMT: external ear and nose normal, oropharynx normal Neck: trachea midline, no thyromegaly Respiratory: normal respiratory effort, lungs clear to auscultation Cardiovascular: RRR, no murmur, no edema Cyanosis involving the toes of the R foot. Unable to palpate R DP or PT pulses Gastrointestinal (Abdomen): normal bowel sounds, soft, nontender, no hepatosplenomegaly Skin: no rashes, warm and dry Neurologic: awake; not confused Results & Data ([place]) Vital Signs (Past 12 Hours) Vital Signs Temp Pulse Resp BP Pulse Ox 08/06/21 07:36 36.6 C 81 16 173/69 H 91 08/05/21 23:19 37.2 C 52 L 16 136/50 L 93 Laboratory Results Laboratory Tests 08/06/21 08/06/21 05:22 05:22 WBC 7.48 Hgb 12.7 L Hct 36.8 L Plt Count 182 Sodium 138 Potassium 4.4 Chloride 108 H Carbon Dioxide 23 BUN 27 H Creatinine 1.82 H D Glucose 97 PG Care Time/CCT Total # of Minutes Spent Total Time Spent with Patient: Total time spent is greater than 50% in coordination of care (as documented) at patient's floor/unit and/or counseling patient: Coding Level of Care Code 90693 Subseq Hosp Care Lvl 3 Diagnoses TEMO (acute kidney injury) N17.9 Chronic kidney disease, stage III (moderate) N18.3 Hypertension I10 Arterial vascular disease I70.90 Renal cyst N28.1
[2021-08-06] MEDS: ACETAMINOPHEN 325 MG TAB PO PRN (10:52)
[2021-08-06] MEDS: DOCUSATE SODIUM/SENNA 50/8.6MG TAB PO SCH (10:53)
--- NOTE | 2021-08-06 11:04 | Ultrasound Report ---
US renal/blad retro comp CLINICAL HISTORY: Chronic renal disease. TEMO. Evaluate for hydronephrosis.. COMPARISON: 08/01/2009 TECHNIQUE: Multiple grayscale and color images of the kidneys and bladder. FINDINGS: Right kidney: The kidney is atrophic and increased in echogenicity. There is no evidence for renal ca lculus or hydronephrosis. There is no evidence for solid renal mass. There is an 8 mm lower pole cyst . Findings are characteristic of medical renal disease. The kidney measures 9.4 cm in greatest length . Left kidney: The kidney is atrophic and increased in echogenicity. There is no evidence for renal glenda culus or hydronephrosis. There is no evidence for solid renal mass. Findings are characteristic of me dical renal disease. The kidney measures 9.4 cm in greatest length. Bladder: The patient reported voiding prior to the examination. However, there was still 447 mL postv oid residual. No bilateral ureteral jets couldn't be demonstrated. IMPRESSION: 1. Bilateral renal cortical atrophy and evidence for medical renal disease. 2. 447 mL post void residual. 3. No evidence for ureteral jets bilaterally. ACT 112: Negative or not required by law. Electronically signed by: Terry Mccoy M.D. 08/06/2021 11:03 AM
[2021-08-06] MEDS ORDERED: TAMSULOSIN HCL 0.4 MG CAP PO ONE (11:41)
[2021-08-06] MEDS: POLYETHYLENE (MIRALAX) 17 GM PACK PO SCH (12:01)
[2021-08-06 13:28] LABS: Partial Thromboplastin Ratio 2.6
[2021-08-06] MEDS: allopurinoL 100 MG TAB PO SCH (15:49)
[2021-08-06] MEDS ORDERED: amLODIPine BESYLATE 5 MG TAB PO SCH ×2 (16:30)
[2021-08-06 20:02] LABS: Partial Thromboplastin Ratio 2.2
[2021-08-06] MEDS: PRAVASTATIN SOD 40 MG TAB PO SCH (20:22)
[2021-08-07] MEDS: oxyCODONE HCL IR 5 MG TAB (IMMEDIATE RELEASE) PO PRN ×3 (01:14→20:08)
[2021-08-07] MEDS: HEPARIN SODIUM/DEXTROSE 25,000 UNITS/500 ML BAG IV SCH (01:16)
[2021-08-07 06:37] LABS: Basophils # (auto) 0.02 K/uL (0-0.2); Basophils % (auto) 0.3 %; Eosinophils # (auto) 0.27 K/uL (0-0.5); Eosinophils % (auto) 4.2 %; Hematocrit (blood only) 36.6 % (42-52); Hemoglobin 12.7 g/dL (14.0-18.0); Immature Granulocytes # (auto) 0.01 K/uL (0.00-0.02); Immature Granulocytes % (auto) 0.2 %; Lymphocytes # (auto) 1.36 K/uL (1.2-3.4); Lymphocytes % (auto) 21.3 %; Mean Corpuscular Hemoglobin 31.8 pg (25-34); Mean Corpuscular Hgb Conc 34.7 g/dL (32-36); Mean Corpuscular Volume 91.5 fL (80-100); Mean Platelet Volume 10.4 fL (7.4-10.4); Monocytes # (auto) 1.12 K/uL (0.11-0.59); Monocytes % (auto) 17.5 %; Neutrophils # (auto) 3.62 K/uL (1.4-6.5); Neutrophils % (auto) 56.5 %; Platelet Count 194 K/uL (130-400); RDW Coefficient of Variation 13.3 % (11.5-14.5); RDW Standard Deviation 44.4 fL (36.4-46.3)
[2021-08-07 06:59] LABS: BUN Creatinine Ratio 12.5 (10-20); Calcium 9.3 mg/dl (8.5-10.1); Est GFR (African American) 41.7 ml/min; Potassium 4.4 mmol/L (3.5-5.1)
[2021-08-07 07:00] LABS: Partial Thromboplastin Ratio 2.4
[2021-08-07 07:02] LABS: Partial Thromboplastin Time 66.8 Seconds (21.0-31.0)
[2021-08-07] MEDS: ASPIRIN 81 MG ECTAB PO SCH (07:54)
[2021-08-07] MEDS: FAMOTIDINE 20 MG TAB PO SCH (07:54)
[2021-08-07] MEDS: cloNIDine HCL 0.1 MG TAB PO SCH ×2 (07:54→20:08)
[2021-08-07] MEDS: levETIRAcetam 500 MG TAB PO SCH ×2 (07:55→20:08)
[2021-08-07] MEDS: DOCUSATE SODIUM/SENNA 50/8.6MG TAB PO SCH (07:55)
[2021-08-07] MEDS: BRIMONIDINE TARTRATE/TIMOLOL OP SCH ×2 (07:55→20:08)
[2021-08-07] MEDS: POLYETHYLENE (MIRALAX) 17 GM PACK PO SCH (07:55)
--- NOTE | 2021-08-07 08:39 | Hospitalist Progress Note ---
Date of Service August 07, 2021 Assessment & Plan (1) Chronic kidney disease, stage III (moderate): Plan: 85yo male with history of CKD-III, HTN, HLP, PAD presenting with TEMO on CKD. (Was to have RLE angiogram performed 08/05 with possible intervention/groin cut down by Dr. Iglesias) but was having outpatient labs to check on his renal function pre-operatively which indicated worsening renal function * Patient with dusky toes and pain on RLE ongoing for several weeks, CTA Aorta with runoff performed 08/01/21 demonstrated extensive atherosclerosis with occlusion and distal reconstitution of the right SFA. Possible etiologies include recent treatment with steroids and Colchicine, but suspect contrast induced nephropathy given he had CTAngio on Sunday for eval with Dr Iglesias Acute TEMO on CKD Cr elevated to 2.86 on admission (was 2.4 on 08/03) CK wnl Fena calculated to 2.2% Cr improved to 1.68 on AM labs (BUN 21) after additional 1L IVF 08/06. ENcourage PO intake and will hold off further IVF for now UOP acceptable, 1.66ml/kg/hr Consult nephrology -- appreciate assistance --> Increased amlodipine to 10mg daily , added imdur 30mg daily 08/07 and will need rx at d/c Renal U/S without obstruction but does show PVR. will try dose of flomax, bladder scan as needed/monitor PVR --> per nursing patient had urinated several hours prior, not right before testing, and that he holds urine until feels like he can fill up the jug. Flomax was given x 1 last evening to note Avoid nephrotoxic agents and renally dose medications as needed Monitor renal function/electrolytes and replacement as needed --Will have eval by Dr Iglesias tomorrow, hopeful angio early this upcoming week, possibly Sunday? (2) Discoloration of skin of toe: Plan: Patient with several weeks of distal toe pain and discoloration. Known PAD s/p aorto-bifemoral grafting. Recent CTA with runoff demonstrated occlusion in the right SFA. Patient is to have angiogram with possible intervention performed by Vascular Surgery after acute issues resolve. Consideration of embolic etiology given initial bilateral nature of dusky toes. ECHO ordered * LV systolic function normal. Mild concentric LVH. RV mild-moderately dilated. LA mildly dilated. Aortic valve sclerosis moderate, without significant valvular stenosis. Mild mitral annular calcification. RV systolic pressure elevated at 55-60mmhg No CTA given renal dysfunction Heparin gtt initiated by admitting team -- discussed with vascular and can continue as ordered for now through weekend Vascular consulted -- no current intervention given Cr >2 last week, will plan on this upcoming week Pain control, bowel regimen Continued inpatient stay/tx of TEMO as above (3) Hypertension: Plan: BP elevated but stable Continues on clonidine 0.1mg BID and monitor Bp currently 185/86 but hadn't gotten medications yet, however still reading high Nephrology increased amlodipine to 10mg daily days prior --> Dr Johnston did add 30mg Imdur, however did discuss with patient he notes "white coat syndrome" even driving by the hospital and his blood pressures are typically 130s/70s at home and he checks his BP three times daily. Regardless given CKD/PAD and renal US/better BP control warranted (4) Hypercholesterolemia: Plan: Chronic Continue Pravastatin 80mg po qHS CK wnl (5) Seizure: Plan: Stable on medications Continue Keppra 500mg po BID (6) COPD with emphysema: Plan: Stable. No cough, SOB or wheeze. Adequate oxygenation on room air. Patient does not feel that he has COPD but is to be on sildenafil for pulm HTN Asked RN to see if family able to bring in medication He does note he takes OTC medications for allergy symptoms On room air currently, no cough/sputum production or shortness of breath reported Monitor (7) Acid reflux: Plan: Chronic Continue Pepcid 20mg po daily while inpatient no issues reported (8) Gouty arthritis: Plan: Chronic. Stable on medications. Continue Allopurinol, reduced to 50mg daily for now given gfr 30-60 -- consider changing this medication at discharge given GFR still 36 (9) Pulmonary nodule: Plan: Patient found to have a RUL pulmonary nodule. Abnormal PET scan on 02/16/21 showed marked FDG uptake - 1.3cm spiculated RUL pulmonary nodule. Findings suggestive of primary bronchogenic carcinoma. No PET/CT evidence of metastatic disease. Patient and daughter are aware of this diagnosis and they are to follow up for biopsy. Unfortunately, patient had other health issues in Feb 2021, felt 2nd to seizure and suffered intraparenchymal hemorrhage Encourage timely followup and further diagnostics when acute issues resolve Plan: continued inpatient stay, Dr Iglesias to evaluated in AM for possible intervention early this upcoming week Admission and Anticipated Discharge Date Admission Date: August 04, 2021 Supervising Physician Co-Signing Physician Notes PA Supervision Note: I did not personally see or examine the patient today, but I verified all [place] points of AALIYAH Banuelos's assessment and plan with the following exceptions/additions: None Subjective Patient evaluated this morning. Doing better. Had BM yesterday. Eating/drinking no issue. Discussed holding further IVF and push oral fluid for now as Cr trending down and not dehydrated on examination. Toes less blue today and states pain tolerable with ordered medications. He is to be evaluated tomorrow by Dr Iglesias and hoping to have surgery as soon as possible so that he can start recovery process. No fever, chills, chest pain, shortness of breath, abd pain, nausea or vomiting. Review of Systems Review of Systems: All systems reviewed & are unremarkable except as noted in HPI & below Physical Exam Physical Exam: General: patient resting comfortably, NAD, non-toxic in appearance, AA&O x 4 Skin: warm, dry, intact (see ext) HEENT: head normocephalic, atraumatic, mm slightly moist (resolved), trachea midline without deviation Resp: CTAB, diminished in the bases, no wheezing, on room air Spo2 96% CV: RRR, +systolic murmur 2/6, no rub/gallop, no calf edema, abn posterior tibial/DP pulses with some pedal edema L>R, cap refill delayed GI: +BS, soft, non-tender : no [place] MSK/Neuro: NVI, CN intact grossly, speech clear, answers questions appropriately mottling/duskiness of R foot 1-5 digits with mottling of R great toe (decreased discoloration to digits), small scab to dorsal aspect 2nd toe, prior scab to tip, less tender to palpation Psych: alert, oriented x 3, pleasant and cooperative Results & Data Results & Data ([place]) Vital Signs (Past 12 Hours) Vital Signs Temp Pulse Resp BP BP Pulse Ox 08/07/21 07:15 36.6 C 82 16 174/70 H 96 08/06/21 22:07 36.8 C 68 16 152/71 H 95 Laboratory Results 08/07/21 08/07/21 08/07/21 Range/Units 06:26 06:26 06:26 WBC 6.40 (4.8-10.8) K/uL RBC 4.00 L (4.7-6.1) M/uL Hgb 12.7 L (14.0-18.0) g/dL Hct 36.6 L (42-52) % MCV 91.5 (80-100) fL MCH 31.8 (25-34) pg MCHC 34.7 (32-36) g/dL RDW Std Deviation 44.4 (36.4-46.3) fL RDW Coeff of Pepe 13.3 (11.5-14.5) % Plt Count 194 (130-400) K/uL MPV 10.4 (7.4-10.4) fL Immature Gran % (Auto) 0.2 % Neut % (Auto) 56.5 % Lymph % (Auto) 21.3 % Whiteside % (Auto) 17.5 % Eos % (Auto) 4.2 % Baso % (Auto) 0.3 % Neut # (Auto) 3.62 (1.4-6.5) K/uL Lymph # (Auto) 1.36 (1.2-3.4) K/uL Whiteside # (Auto) 1.12 H (0.11-0.59) K/uL Eos # (Auto) 0.27 (0-0.5) K/uL Baso # (Auto) 0.02 (0-0.2) K/uL Immature Gran # (Auto) 0.01 (0.00-0.02) K/uL APTT 66.8 H* (21.0-31.0) Seconds PTT Ratio 2.4 Sodium 137 (136-145) mmol/L Potassium 4.4 (3.5-5.1) mmol/L Chloride 108 H (98-107) mmol/L Carbon Dioxide 22 (21-32) mmol/L Anion Gap 7 (3-11) BUN 21 (6-23) mg/dl Creatinine 1.68 H (0.6-1.4) mg/dl Est Cr Clr Drug Dosing 28.0 ml/min Est GFR ( Amer) 41.7 ml/min Est GFR (Non-Af Amer) 36.0 ml/min BUN/Creatinine Ratio 12.5 (10-20) Glucose 98 (70-99(Fasting)) mg/dl Calcium 9.3 (8.5-10.1) mg/dl 08/06/21 08/06/21 Range/Units 19:28 12:45 WBC (4.8-10.8) K/uL RBC (4.7-6.1) M/uL Hgb (14.0-18.0) g/dL Hct (42-52) % MCV (80-100) fL MCH (25-34) pg MCHC (32-36) g/dL RDW Std Deviation (36.4-46.3) fL RDW Coeff of Pepe (11.5-14.5) % Plt Count (130-400) K/uL MPV (7.4-10.4) fL Immature Gran % (Auto) % Neut % (Auto) % Lymph % (Auto) % Whiteside % (Auto) % Eos % (Auto) % Baso % (Auto) % Neut # (Auto) (1.4-6.5) K/uL Lymph # (Auto) (1.2-3.4) K/uL Whiteside # (Auto) (0.11-0.59) K/uL Eos # (Auto) (0-0.5) K/uL Baso # (Auto) (0-0.2) K/uL Immature Gran # (Auto) (0.00-0.02) K/uL APTT 61.0 H* 72.0 H* (21.0-31.0) Seconds PTT Ratio 2.2 2.6 Sodium (136-145) mmol/L Potassium (3.5-5.1) mmol/L Chloride (98-107) mmol/L Carbon Dioxide (21-32) mmol/L Anion Gap (3-11) BUN (6-23) mg/dl Creatinine (0.6-1.4) mg/dl Est Cr Clr Drug Dosing ml/min Est GFR ( Amer) ml/min Est GFR (Non-Af Amer) ml/min BUN/Creatinine Ratio (10-20) Glucose (70-99(Fasting)) mg/dl Calcium (8.5-10.1) mg/dl Diagnostic Findings Renal Ultrasound 08/06/21 13:11 US renal/blad retro comp CLINICAL HISTORY: Chronic renal disease. TEMO. Evaluate for hydronephrosis.. COMPARISON: 08/01/2009 TECHNIQUE: Multiple grayscale and color images of the kidneys and bladder. FINDINGS: Right kidney: The kidney is atrophic and increased in echogenicity. There is no evidence for renal calculus or hydronephrosis. There is no evidence for solid renal mass. There is an 8 mm lower pole cyst. Findings are characteristic of medical renal disease. The kidney measures 9.4 cm in greatest length. Left kidney: The kidney is atrophic and increased in echogenicity. There is no evidence for renal calculus or hydronephrosis. There is no evidence for solid renal mass. Findings are characteristic of medical renal disease. The kidney measures 9.4 cm in greatest length. Bladder: The patient reported voiding prior to the examination. However, there was still 447 mL postvoid residual. No bilateral ureteral jets couldn't be demonstrated. IMPRESSION: 1. Bilateral renal cortical atrophy and evidence for medical renal disease. 2. 447 mL post void residual. 3. No evidence for ureteral jets bilaterally. ACT 112: Negative or not required by law. Electronically signed by: Terry Mccoy M.D. 08/06/2021 11:03 AM PG Care Time/CCT Total # of Minutes Spent Total Time Spent with Patient: Total time spent is greater than 50% in coordination of care (as documented) at patient's floor/unit and/or counseling patient: Coding Level of Care Code 97696 Subseq Hosp Care Lvl 2 Diagnoses Chronic kidney disease, stage III (moderate) N18.3 Discoloration of skin of toe L81.9 Hypertension I10 Hypercholesterolemia E78.00 Seizure R56.9 COPD with emphysema J43.9 Acid reflux K21.9 Gouty arthritis M10.9 Pulmonary nodule R91.1
[2021-08-07] MEDS: ACETAMINOPHEN 325 MG TAB PO PRN (08:49)
--- NOTE | 2021-08-07 09:29 | Nephrology Progress Note ---
Date of Service August 07, 2021 Assessment & Plan (1) TEMO (acute kidney injury): Plan: * TEMO due to ROSMERY. UA bland, microscopy acellular. Kidneys unobstructed on 08/01/21 CT. * Non-oliguric. Electrolytes acceptable. 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 * Cr is trending down and nearing baseline. Agree w/ stopping LR infusion. Encourage oral hydration * Will recheck PRP in am. Hold further IV contrast administration until Cr < or = 1.3 (2) Chronic kidney disease, stage III (moderate): Plan: * Baseline creatinine 1.3 mg/dL. CT reveals bilateral cortical atrophy suggestive of microvascular disease (3) Hypertension: Plan: * Amlodipine increased to 10 mg daily * Remains on clonidine 0.1 BID * Will add Imdur 30 mg po daily (4) Arterial vascular disease: Plan: * Angiography delayed pending renal recovery. Hopefully will be able to proceed with vascular intervention next week (5) Renal cyst: Plan: * Identified on PET CT from February 2021. Outpatient follow up. No additional evaluation required at this time Admission and Anticipated Discharge Date Admission Date: August 04, 2021 Subjective Mr. Bliss was evaluated in his hospital room this morning. He reports mild discomfort involving his R foot but voices no other medical concerns. He is currently on a heparin gtt. Review of Systems Constitutional: no fever Eyes: no problem reported Ear, Nose, Mouth, Throat: no problem reported Respiratory: no cough and no dyspnea Cardiovascular: no chest pain, no palpitations and no edema Gastrointestinal: no abdominal pain, no nausea, no vomiting and no diarrhea/loose stools Genitourinary: no dysuria, no urinary hesitancy or no hematuria Musculoskeletal: no back pain Integumentary: no rash Neurologic: no confusion Physical Exam Constitutional: not in distress Eyes: PERRL, conjunctivae normal, anicteric sclerae ENMT: external ear and nose normal, oropharynx normal Neck: trachea midline, no thyromegaly Respiratory: normal respiratory effort, lungs clear to auscultation Cardiovascular: RRR, no murmur, no edema Gastrointestinal (Abdomen): normal bowel sounds, soft, nontender, no hepatosplenomegaly Skin: no rashes, warm and dry Neurologic: awake; not confused Results & Data ([facility]) Vital Signs (Past 12 Hours) Vital Signs Temp Pulse Resp BP BP Pulse Ox 03/27/22 07:15 36.6 C 82 16 174/70 H 96 08/06/21 22:07 36.8 C 68 16 152/71 H 95 Laboratory Results Laboratory Tests 08/07/21 08/07/21 06:26 06:26 WBC 6.40 Hgb 12.7 L Hct 36.6 L Plt Count 194 Sodium 137 Potassium 4.4 Chloride 108 H Carbon Dioxide 22 BUN 21 Creatinine 1.68 H Glucose 98 PG Care Time/CCT Total # of Minutes Spent Total Time Spent with Patient: Total time spent is greater than 50% in coordination of care (as documented) at patient's floor/unit and/or counseling patient: Coding Level of Care Code 10496 Subseq Hosp Care Lvl 3 Diagnoses TEMO (acute kidney injury) N17.9 Chronic kidney disease, stage III (moderate) N18.3 Hypertension I10 Arterial vascular disease I70.90 Renal cyst N28.1
[2021-08-07] MEDS: ISOSORBIDE MONO EXTENDED REL 30 MG TABCR PO SCH (11:02)
[2021-08-07 13:04] LABS: Partial Thromboplastin Time 54.9 Seconds (21.0-31.0)
[2021-08-07] MEDS: PSYLLIUM 58.6% POWDER PACKET PO SCH (13:26)
[2021-08-07] MEDS: allopurinoL 100 MG TAB PO SCH (16:38)
[2021-08-07] MEDS: PRAVASTATIN SOD 40 MG TAB PO SCH (20:07)
[2021-08-07] MEDS ORDERED: TAMSULOSIN HCL 0.4 MG CAP PO SCH (21:00)
[2021-08-07 22:14] VITALS: TEMP 98.2
[2021-08-08] MEDS: HEPARIN SODIUM/DEXTROSE 25,000 UNITS/500 ML BAG IV SCH (05:51)
[2021-08-08 06:18] LABS: BUN Creatinine Ratio 12.1 (10-20); Calcium 9.4 mg/dl (8.5-10.1); Creatinine Clr Calc Pharmacy 33.5 ml/min; Est GFR (Non-African American) 44.9 ml/min; Potassium 4.6 mmol/L (3.5-5.1)
[2021-08-08 06:23] LABS: Partial Thromboplastin Ratio 1.7
[2021-08-08 06:24] LABS: Partial Thromboplastin Time 47.9 Seconds (21.0-31.0)
[2021-08-08 07:35] VITALS: O2SAT 95
[2021-08-08] MEDS ORDERED: amLODIPine BESYLATE 5 MG TAB PO SCH (08:00)
[2021-08-08] MEDS: DOCUSATE SODIUM/SENNA 50/8.6MG TAB PO SCH (08:08)
[2021-08-08] MEDS: FAMOTIDINE 20 MG TAB PO SCH (08:08)
[2021-08-08] MEDS: ISOSORBIDE MONO EXTENDED REL 30 MG TABCR PO SCH (08:08)
[2021-08-08] MEDS: levETIRAcetam 500 MG TAB PO SCH (08:08)
[2021-08-08] MEDS: PSYLLIUM 58.6% POWDER PACKET PO SCH ×2 (08:09→08:16)
[2021-08-08] MEDS: ASPIRIN 81 MG ECTAB PO SCH (08:09)
[2021-08-08] MEDS: POLYETHYLENE (MIRALAX) 17 GM PACK PO SCH ×2 (08:09→08:16)
[2021-08-08] MEDS: cloNIDine HCL 0.1 MG TAB PO SCH (08:09)
[2021-08-08] MEDS: BRIMONIDINE TARTRATE/TIMOLOL OP SCH (08:10)
[2021-08-08] MEDS ORDERED: NORMOSOL-R 1,000 ML IV SCH (08:30)
--- NOTE | 2021-08-08 08:46 | Nephrology Progress Note ---
Date of Service August 08, 2021 Assessment & Plan (1) TEMO (acute kidney injury): Plan: * TMEO due to ROSMERY. UA bland, microscopy acellular. Kidneys unobstructed on 08/01/21 CT. * Non-oliguric. Electrolytes acceptable. 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 * Cr is near baseline. Proceed w/ RLE revascularization as per Dr. Iglesias * Will recheck PRP in am. (2) Chronic kidney disease, stage III (moderate): Plan: * Baseline creatinine 1.3 mg/dL. CT reveals bilateral cortical atrophy suggestive of microvascular disease (3) Hypertension: Plan: * Continue Amlodipine 10 mg daily, Clonidine 0.1 mg BID and Imdur 30 mg daily * Primary service to add low dose Metoprolol (4) Arterial vascular disease: Plan: * Proceed w/ vascular surgery as per Dr. Iglesias (5) Renal cyst: Plan: * Identified on PET CT from February 2021. Outpatient follow up. No additional evaluation required at this time Admission and Anticipated Discharge Date Admission Date: August 04, 2021 Subjective Mr. Bliss was evaluated in his hospital room this morning. He reports mild discomfort involving his R foot but voices no other medical concerns. He remains on a heparin gtt. Review of Systems Constitutional: no fever Eyes: no problem reported Ear, Nose, Mouth, Throat: no problem reported Respiratory: no cough and no dyspnea Cardiovascular: no chest pain, no palpitations and no edema Gastrointestinal: no abdominal pain, no nausea, no vomiting and no diarrhea/loose stools Genitourinary: no dysuria, no urinary hesitancy or no hematuria Musculoskeletal: no back pain Integumentary: no rash Neurologic: no confusion Physical Exam Constitutional: not in distress Eyes: PERRL, conjunctivae normal, anicteric sclerae ENMT: external ear and nose normal, oropharynx normal Neck: trachea midline, no thyromegaly Respiratory: normal respiratory effort, lungs clear to auscultation Cardiovascular: RRR, no murmur, no edema Gastrointestinal (Abdomen): normal bowel sounds, soft, nontender, no hepatosplenomegaly Skin: no rashes, warm and dry Neurologic: awake; not confused Results & Data ([facility]) Vital Signs (Past 12 Hours) Vital Signs Temp Pulse Resp BP BP Pulse Ox 08/08/21 07:35 36.8 C 103 H 16 182/91 H 95 03/27/22 22:13 36.8 C 82 16 153/58 H 90 Laboratory Results Laboratory Tests 08/08/21 05:26 Sodium 134 L Potassium 4.6 Chloride 103 Carbon Dioxide 21 BUN 17 Creatinine 1.40 Glucose 108 H PG Care Time/CCT Total # of Minutes Spent Total Time Spent with Patient: Total time spent is greater than 50% in coordination of care (as documented) at patient's floor/unit and/or counseling patient: Coding Level of Care Code 30713 Subseq Hosp Care Lvl 3 Diagnoses TEMO (acute kidney injury) N17.9 Chronic kidney disease, stage III (moderate) N18.3 Hypertension I10 Arterial vascular disease I70.90 Renal cyst N28.1
--- NOTE | 2021-08-08 09:52 | Communication Note ---
Date of Service: August 08, 2021 Pt's Cr is 1.4 today. Per nephrology recommendations, pt's Cr needs to be less than 1.3 to proceed with angio. Pt without any new sx today. Discussed with Dr Iglesias, will tentatively plan for angio on SUNDAY in [place], if pt Cr continues to normalize. This can be done as outpt if pt is d/c prior to then. Please call if needed prior.
[2021-08-08 13:58] VITALS: BP 153/58; PULSE 71
--- NOTE | 2021-08-08 17:29 | Discharge Summary ---
Date of Service August 08, 2021 Admission HPI Per Admitting Provider Mr. Baron Bliss is a pleasant 85yo male with history of HTN, HLP, COPD, GERD, COPD and Seizure disorder presenting with worsening renal function. Patient was seen by Vascular Surgery on 08/02/21 with complaint of blue toes bilaterally. Patient noted acute onset of bilateral toe pain approximately 6 weeks ago. He was treated with colchicine and a 9 day steroid taper for presumed gout. His toes on the left improved, however, the right toes stayed blue and painful. He was seen at [facility] on 08/01/21 and had a CTA of the abdomen and pelvis with bilateral lower extremity runoff which showed a patent aortobifemoral graft and a short segment occlusion of the right distal superficial femoral artery. He was therefore referred to Vascular Surgery and was scheduled to have angiography of the RLE performed tomorrow. Patient had lab work performed which revealed elevation of BUN and Cr from baseline. BUN of 41 <--(35 on 08/03) <--(22 on 08/01/21) and Cr of 2.63 <--(2.4 on 08/03) <-- (1.29 on 08/01/21). He reports he is eating and drinking well. No dehydration. He is urinating without difficulty, clear yellow urine without blood or foam. He was recently started on Clonidine for blood pressure management, otherwise, no medication changes. He does not typically take NSAIDS but did take 2 Advil earlier today. Patient did have CTA of the aorta with runoff - contrast load administered 08/01/21. He is complaining of pain in his right toes, worse when laying down. No additional complaints. Specifically denies fever, chills, chest pain, cough, SOB, abdominal pain, nausea, vomiting, diarrhea. He does have occasional constipation which is unchanged. He has had a good appetite and is eating and drinking per usual. In the ER he is afebrile, HD stable, NAD. Labs and images as below Principal Diagnosis 1. Acute Kidney Injury 2. Peripheral Arterial Disease 3. Hypertension with Accelerated blood pressure Discharge Exam General: Resting comfortably in his hospital bed. NAD. HEENT: Head is AT/NC. Buccal mucosa is moist and pink Neck: No JVD. Negative hepatojugular reflex Cardiac: RRR with 1/6 to 2/6 MARY Lungs: CTA without W/R/R Abdomen: Normoactive X4. Soft and nontender in all quadrants. Extremities: Distal toes on the right extremity are purple in color. Dorsalis pedis and posterior tibialis pulses on the right are nonpalpable. Diminished capillary refill Neuro: A&O X4. Cranial nerves II through XII are grossly intact. No focal neuro deficits Skin: See above Psych: Appropriate affect. Pleasant and cooperative Discharge Data Allergies Allergy/AdvReac Type Severity Reaction Status Date / Time baclofen Allergy Unknown Unknown Verified 08/04/21 07:58 carvedilol Allergy Unknown Unknown Verified 08/04/21 07:58 clozapine Allergy Unknown unknown Verified 08/04/21 07:58 haloperidol Allergy Unknown unknown Verified 08/04/21 07:58 metoclopramide Allergy Unknown Unknown Verified 08/04/21 07:58 Phenothiazines Allergy Unknown unkonwn Verified 08/04/21 07:58 Consultations 08/04/21 21:01 ED Decision to Admit Stat 08/04/21 22:53 Consult Vascular Surgery Routine Date of Service: August 08, 2021 Pt's Cr is 1.4 today. Per nephrology recommendations, pt's Cr needs to be less than 1.3 to proceed with angio. Pt without any new sx today. Discussed with Dr Iglesias, will tentatively plan for angio on SUNDAY in [place], if pt Cr continues to normalize. This can be done as outpt if pt is d/c prior to then. Please call if needed prior. 08/05/21 13:11 Consult Nephrology Routine Assessment & Plan (1) TEMO (acute kidney injury): Plan: * TEMO due to ROSMERY. UA bland, microscopy acellular. Kidneys unobstructed on 08/01/21 CT. * Non-oliguric. Electrolytes acceptable. No acute indication for EX CHEF at this time. * Cr is near baseline. Proceed w/ RLE revascularization as per Dr. Iglesias * Will recheck PRP in am. (2) Chronic kidney disease, stage III (moderate): Plan: * Baseline creatinine 1.3 mg/dL. CT reveals bilateral cortical atrophy suggestive of microvascular disease (3) Hypertension: Plan: * Continue Amlodipine 10 mg daily, Clonidine 0.1 mg BID and Imdur 30 mg daily * Primary service to add low dose Metoprolol (4) Arterial vascular disease: Plan: * Proceed w/ vascular surgery as per Dr. Iglesias (5) Renal cyst: Plan: * Identified on PET CT from February 2021. Outpatient follow up. No additional evaluation required at this time Ordered Studies 08/06/21 13:11 US renal/blad retro comp Routine IMPRESSION: 1. Bilateral renal cortical atrophy and evidence for medical renal disease. 2. 447 mL post void residual. 3. No evidence for ureteral jets bilaterally. Hospital Course (1) TEMO (acute kidney injury): Mr. Bliss is an 85-year-old white male with an underlying past medical history of PAD, CKD, HTN, HLD, COPD, and seizure disorder. Sent to the ED due to elevated creatinine of 2.86. -Baseline creatinine is around 1.3. Was to have a vascular procedure and his preoperative lab work showed a creatinine of 2.86 for which she was sent to the emergency department -Acute on chronic renal impairment thought to be secondary to recent steroid/colchicine use and recent CT with contrast (contrast-induced nephropathy) -Has been receiving IV hydration and all nephrotoxic agents have been held -Urinalysis without infection -Patient not uremic, not oliguric or an uric, no acidosis or electrolyte abnormalitiesno indication for acute hemodialysis -Renal ultrasound done showing no evidence of obstructive uropathy -Nephrology followingappreciate assistance -Renal function has improved and is 1.4 today. Has received clearance for [facility] [place] o[facility] vascular procedure needed -Recommend avoiding nephrotoxic agents and continued oral hydration -Follow-up with PCP. Recommend follow-up labs to trend (2) Arterial vascular disease: -Patient complaining of ongoing toe pain X 6 weeks -Initially thought to be gout flare given history. Treated with prednisone and colchicine without relief -Presented to the ED on 08/01. CTA of the abdomen and pelvis with runoff showed aortobifemoral graft and short segment occlusion of the right distal superficial femoral artery -Seen by vascular surgeonappreciate assistance -Plan is for angiography with potential revascularization -Unfortunately, procedure postponed given acute on chronic renal impairment -Renal function now improved near baseline and cleared by nephrology. Vascular surgery recommending procedure be done as an outpatient -Patient has been on a heparin drip throughout this hospitalization. Per vascular surgeon, no need for continued anticoagulation therapy upon discharge. To continue his aspirin -Dr. Iglesias to arrange Mucomyst prior to the procedure for renal protection -Continue statin. Patient does not use tobacco or tobacco related products (3) Hypertension: -BP has been accelerated throughout this hospitalization -Imdur has been added to his drug regimen -BP remains elevated. Was going to add metoprolol but upon inquiring about his carvedilol allergy, he reports was on metoprolol in the past and uncertain why this was discontinued -In addition, he reports he takes clonidine 0.1 mg in the morning and afternoon and 0.2 mg at bedtime. That is not what is listed in his med rec. He is currently only taking 0.1 mg twice daily. Patient to continue the 0.1 mg twice daily with the additional 0.2 mg at bedtime and monitor blood pressure at home. Follow-up with PCP regarding this (4) Hypercholesterolemia: -Continue statin therapy Plan of care discussed with nephrology, vascular surgery, and attending provider. Total Time Total Time Spent Total Time Spent (In Minutes): 45 minutes including time spent with patient, coordination of care, preparation of documentation Discharge Plan Discharge Items Patient Disposition: Home - Self-Care Reason For Visit: TEMO Discharge Diagnosis: 1. Acute Kidney Injury 2. Peripheral Arterial Disease 3. Hypertension with Accelerated blood pressure Activity: As commented below Activity Comment: as tolerated Non-emergency contact: Primary Care Provider and Specialist Call non-emergency contact if: you have any medication questions and your pain is not controlled Follow-up/Referrals: Carlos Manuel Harris MD [Primary Care Provider] - 08/16/21 3:00 pm Aleksander Iglesias MD [Physician] - Diet: Heart Healthy Diet Comment: PUSH YOUR FLUIDS!! Addtl Attending Provider Instructions: You were found to have Acute Kidney Injury on labs obtained which prompted your Family Physician to send you to the hospital. You Renal Impairment was likely a result of the contrast used for the CT scan to check your arteries in addition to the recent steroids and colchicine used to treat was was thought to be gout. Unfortunately, given the renal impairment, you could not have the angiography (a test to further assess blockages in your arteries and perhaps insert a stent to open the blockages) as this uses contrast. Your renal function improved with IV hydration. Dr. Iglesias would like to move forward with this procedure on Sunday. Your kidney function is better and near baseline. No need to remain IN THE HOSPITAL awaiting this procedure as it can be facilitated as an outpatient (per Dr. Iglesias) Can use Ultram as needed for pain You need to push your fluids and avoid medications that can worsen your renal function (DO NOT TAKE ALEVE, IBUPROFEN, ADVIL, MOTRIN, NAPROSYN, MOBIC, VOLTAREN). Can take only Tylenol for pain. Dr. Iglesias's office will call you regarding your procedure on Sunday. He plans on putting you on a medication to start the day prior to the procedure to help protect your kidneys. It is important to remain hydrated and push your fluids in the meantime. Remain on your Aspirin Your blood pressure has been elevated throughout this hospitalization. You have been started on Imdur to help with your blood pressure. If your blood pressure is TOO low are you are dizzy/lightheaded, hold this medication Return to the ED for new or worsening symptoms Follow up with PCP: 7-10 days (as you will need follow up labs to recheck your renal function and follow up on your blood pressure) Pending Studies at Discharge: No Stand-Alone Forms: My [facility] Medications and DC Order Prescriptions: New tramadol [Ultram] 50 mg tablet 50 mg PO Q4H PRN (Reason: pain) Qty: 20 RF: 0 clonidine HCl 0.2 mg tablet 0.2 mg PO HS Qty: 30 RF: 0 isosorbide mononitrate 30 mg Tablet Extended Release 24 Hr 30 mg PO QAM Qty: 30 RF: 0 Continued multivitamin tablet 1 tab PO QAM RF: 0 Combigan 0.2-0.5 % drops 1 drops OP BID RF: 0 loratadine [Claritin] 10 mg tablet 10 mg PO DAILY PRN (Reason: Allergy Symptoms) RF: 0 pravastatin 80 mg tablet 80 mg PO HS Qty: 90 RF: 3 sildenafil (pulm.hypertension) 20 mg tablet See Rx Instructions PO .COMPLEX Qty: 20 RF: 5 acetaminophen 325 mg capsule 650 mg PO Q4H PRN (Reason: pain) Qty: 100 RF: 0 levetiracetam [Keppra] 500 mg tablet 500 mg PO BID Qty: 60 RF: 5 Metamucil 3.4 gram/5.4 gram powder 1 tbsp PO QAM RF: 0 amlodipine 5 mg tablet 5 mg PO QDD RF: 0 allopurinol 100 mg tablet 100 mg PO QDD RF: 0 omeprazole 20 mg capsule,delayed release(/EC) 20 mg PO QAM RF: 0 aspirin 81 mg Tablet,Delayed Release (Dr/Ec) 81 mg PO QAM RF: 0 Changed clonidine HCl 0.2 mg tablet 0.1 mg PO .AM AND AFTERNOON Qty: 60 RF: 11 Discontinued colchicine [Colcrys] 0.6 mg tablet 0.6 mg PO DAILY PRN (Reason: gout) Qty: 90 RF: 3 Discharge Orders: Discharge Order (Routine); Ordered 08/08/21 Ordered By: Blanca Avilez Admission Data Admit Date/Time: 08/04/21 21:34 Attending Provider: Martinez Main Admit Provider: Estephania Valencia Primary Care Provider: Carlos Manuel Harris Other Providers: Estephania Valencia ; Aleksander Iglesias ; Pierre La Other Interventions: Discharge Summary Assessment (RN) Last Done: 08/08/21 13:56 Supervising Physician Co-Signing Physician Notes I supervised Fatmata ACEVES on the care of this patient. I interviewed and examined the patient independently of her. The plan is as written in her note except for any following changes/exceptions: None Plan is for angiography with potential revascularization as an outpatient. Patient will be discharged. Coding Level of Care Code D/C DAY MANAGEMENT >30 MINS Diagnoses TEMO (acute kidney injury) N17.9 Arterial vascular disease I70.90 Hypertension I10 Hypercholesterolemia E78.00
== END 2021-08-08 15:04 | disposition home or self-care (01) | DRG 684 ==
LOC: ED 19:03 → SUATTDRO 21:34 → 3W 21:34

== ENCOUNTER 2021-12-25 14:47 | Inpatient (IN) ==
[2021-12-25] MEDS ORDERED: ALBUTEROL 0.083% NEBU SOLN 3 ML VIAL NEB STA (14:59)
[2021-12-25] MEDS ORDERED: SODIUM CHLORIDE 0.9% 1000ML 1,000 ML IV ONE (15:07)
--- NOTE | 2021-12-25 15:07 | Emergency Department Note ---
Impression & Plan Respiratory failure, Breath shortness, Hypoxia, Tachycardia, Lung mass, Elevated troponin ED Provider Note NAME: JAMES BOWERS AGE: 86 SEX: M : 1935 ARRIVES VIA: Ambulance INFORMANT: Patient, EMS ED PROVIDER(S): Kong Ribera DO CHIEF COMPLAINT: shortness of breath HPI: Patient is a 86-year-old male with PMH of HTN, PAD, COPD, GERD, COPD and Seizure disorder who presents to the ER for shortness of breath which started around 10 AM this morning. He admits to trouble breathing and a history of COPD. He denies any chest pain, belly pain, nausea, vomiting, or diarrhea. No new cough or congestion. He admits to chronic right shoulder pain which has been present for greater than past 3 years. No history of A. fib or a flutter. Does not believe that he has a history of any heart disease. He does not take any blood thinners. No other exacerbating or remitting factors. He does feel better on oxygen. He is that he did miss some of his medications but is not 100% sure what he took this morning. ROS: See above HPI for pertinent positives & negatives. A total of 10 systems reviewed and were otherwise negative. PAST MEDICAL HISTORY:See Below PAST SURGICAL HISTORY:See Below FAMILY HISTORY:See Below SOCIAL HISTORY:See Below HOME MEDICATIONS:See Below ALLERGIES:See Below VITALS:See Below PHYSICAL EXAMINATION: GENERAL: Sitting up in bed, alert, ill-appearing, moderate distress EYE EXAM: normal conjunctiva. OROPHARYNX: no exudate, no erythema, lips, buccal mucosa, and tongue normal and mucous membranes are moist LUNGS: Initial bilaterally with faint wheezing. Normal poor air movement chest wall mechanics HEART: Cardiac, S1 normal and S2 normal ABDOMEN: abdomen soft, non-tender, normo-active bowel sounds, no masses, no rebound or guarding. BACK: Back is symmetrical on inspection and there is no deformity, no midline tenderness, no CVA tenderness. SKIN: no rashes and no bruising UPPER EXTREMITIES: upper extremities are grossly normal. LOWER EXTREMITIES: Edema in the right lower extremity NEURO EXAM: Normal sensorium, cranial nerves II-XII grossly intact, normal speech, no gross weakness of arms, no gross weakness of legs. MEDICAL DECISION MAKING: Patient is a 86-year-old male who presents the ER for shortness of breath. Upon arrival he is found to be hypertensive with systolic pressures in the 250s, tachypneic, and tachycardic with a heart rate in the 150s and found to be hypoxic. He was placed on nasal cannula and transition to BiPAP. IVs were established blood work was obtained. He was given neb treatment, steroids and IV antibiotics. Labs were obtained and showed leukocytosis 24,000. No significant anemia. D-dimer was elevated. Patient was not rate controlled until CT angio of the chest showed no PEs but a large mass. VBG with a CO2 of 57. BMP was fairly unremarkable. Calcium was elevated 10. Troponin was elevated at 70. Do favor this likely rate related. Pro-Rancho was negative. Lipase was negative. Following the negative CT angio for PE patient was given IV labetalol and heart rate trended down to the 80s. Blood pressures trended down with Nitropaste as well as the IV labetalol to 160s. He was resting much more comfortable on BiPAP and discussed with hospitalist admitted to [facility] for further evaluation and workup. Triage Nursing notes reviewed. Limited review of prior medical records performed Vital Signs: reviewed and remarkable for HTN, tachy, hypoxic Differential diagnosis: Differential diagnoses includes but is not limited to pneumonia, bronchitis, COPD/Asthma exacerbation, pneumothorax, pulmonary embolism, congestive heart failure, acute coronary syndrome ER treatment provided: See below Diagnostics interpreted by me: ECG: Sinus tachycardia rate 142 Normal axis Disease present QTC 507 Cardiac Monitoring: An order was placed for continuous cardiac monitoring. The monitor shows a rate of 133 with sinus rhythm. Laboratory studies: As stated above and show below. Imaging studies: CT angio chest showed no PEs but pulmonary mass which is eroding into the bone of the ribs Consultation(s): As described above Procedures: none Critical Care: I have personally spent 40 minutes of critical care time in the direct management of this patient. This includes bedside care, interpretation of diagnostic studies, and testing, discussion with consultants, patient, and family members, and other required patient management activities. This 40 minutes is in excess of all separately billable procedures. Past Med/Surg History Medical History (Updated 12/25/21 @ 20:21 by MASTER Lockhart) Acid reflux TEMO (acute kidney injury) Benign prostatic hypertrophy Chronic kidney disease, stage III (moderate) no specialist per pt COPD with emphysema pt 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 Glaucoma Gouty arthritis prednisone taper 07/19/2021 by PCP for suspected gout, persistent discoloration and pain of toes-abnormal CTA with upcoming vascular surgery History of anesthesia reaction was confused, felt like his bed was on the wall, the clock was on the floor, after approx half hr, resolved History of blood transfusion 2009 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 [facility] complete Hypercholesterolemia Hypertension Impaired fasting glucose 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, fall in setting of seizure activity, HTN; follows with [facility] neuro d/c from neurosurgery: monitoring f/u imaging to further rule out vascular malformations and "aid in diagnosis of CAA should there be progression of micro-hemorrhages" Lumbar spinal stenosis Lung nodule Peripheral vascular disease Pulmonary hypertension mild 2018 echo Pulmonary nodule to have biopsy through [facility] IR 03/2021, not yet completed per records Sacroiliitis Sciatica of left side gets steroid injections Seizure 03/02/2021, fall in setting of seizure activity, HTN; follows with [facility] neuro d/c from neurosurgery: monitoring f/u imaging to further rule out vascular malformations and "aid in diagnosis of CAA should there be progression of micro-hemorrhages" Skin lesion of left ear 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 Post-op anesthesia progress note: "...was hypertensive on arrival to PACU so was treated with labetalol. He remains hypertensive but his blood pressure is lower than it was at his preoperative baseline. His other vital signs are stable." H/O aorto-femoral bypass (~2009) [address] Alfaro H/O transurethral resection of prostate History of colonoscopy History of esophagogastroduodenoscopy (EGD) with dilation Hx of non-cataract eye surgery left eye x3 for retina issues Loss of teeth due to extraction Status post aortic bifurcation bypass graft History of Bypass Graft (Non-Vein) Aortic-bifemoral > 2009 > [facility] Status post appendectomy Status post cataract surgery bilat Status post tonsillectomy and adenoidectomy Family History Sister Breast cancer Diabetes Father Parkinsons disease Prostate cancer Mother Diabetes Denies family history of Ovarian cancer Myocardial infarction Lung cancer Colorectal cancer Social History Smoking Status: Former smoker Tobacco Type: Cigarettes Age Started Using Tobacco: 14; Age Quit Using Tobacco: 64; packs per day: 1; Second Hand Exposure: No; Hx Alcohol Use: No Hx Substance Use: No Preferred Language: Gambian Communication Ability: Effective Visual Impairment: Limited Hearing Ability: Normal Web Communications Specialist Required: No Beliefs That Will Affect Care: None marital status: Current Living Situation: Alone Current Living Situation Comment: Lives in own home and can live on one floor current occupational status: retired Other Information That Helps Us Care for You: No Feels Safe at Home: Yes Safety Concerns: Feels Safe At This Time Childhood Exposure to Second-Hand Smoke: No caffeine: Yes Dental Care, Regularly: No Physical Activity Frequency: 5-6 Times per Week Seatbelt Use: always Sunscreen Use: No Assistive Devices: Walker Allergies Allergies Allergy/AdvReac Type Severity Reaction Status Date / Time baclofen Allergy Unknown Unknown Verified 11/22/21 13:26 carvedilol Allergy Unknown Unknown Verified 11/22/21 13:26 clozapine Allergy Unknown unknown Verified 11/22/21 13:26 haloperidol Allergy Unknown unknown Verified 11/22/21 13:26 metoclopramide Allergy Unknown Unknown Verified 11/22/21 13:26 Phenothiazines Allergy Unknown unkonwn Verified 11/22/21 13:26 Home Meds Home Medications Medication Instructions Recorded Confirmed multivitamin 1 tab PO QAM 02/11/18 11/22/21 brimonidine 0.2 %-timolol 0.5 % 1 drops ophthalmic (eye) BID 11/12/18 11/22/21 eye drops (Combigan) loratadine 10 mg tablet (Claritin) 10 mg PO DAILY PRN Allergy Symptoms 06/11/20 11/22/21 psyllium husk 3.4 gram/5.4 gram 1 tbsp PO QAM 06/11/20 11/22/21 oral powder (Metamucil) aspirin 81 mg tablet,delayed 81 mg PO QAM 08/04/21 11/22/21 release Previous Rx's Medication Instructions Recorded acetaminophen 325 mg capsule 650 mg PO Q4H PRN pain #100 caps 12/24/20 allopurinol 100 mg tablet 100 mg PO QDD #90 tabs 08/15/21 omeprazole 20 mg capsule,delayed 20 mg PO QAM #90 caps 08/15/21 release pravastatin 80 mg tablet 80 mg PO HS #90 tabs 08/15/21 amlodipine 5 mg tablet 5 mg PO QDD #90 tabs 08/22/21 levetiracetam 500 mg tablet 500 mg PO BID #60 tabs 09/16/21 (Keppra) clonidine HCl 0.2 mg tablet See Rx Instructions PO HS #180 tabs 10/07/21 hydrocodone 5 mg-acetaminophen 325 1 tab PO TID PRN pain #90 tabs 11/29/21 mg tablet prednisone 10 mg tablets in a dose See Rx Instructions .Route 11/29/21 pack .COMPLEX #42 ea Results & Data (ED) Vital Signs Vital Signs - 24 hr 12/25/21 14:59 12/25/21 15:07 12/25/21 14:54 Temperature 37.1 C Temperature Source Oral Pulse Rate 139 H 138 H 139 H Pulse Rate from SpO2 Sensor Pulse Rhythm Regular Pulse Strength Normal Respiratory Rate 24 28 H 28 H Respiratory Effort / Characteristics Spontaneous Labored Non-Labored Spontaneous Respiratory Depth Normal Normal Respiratory Pattern Regular Blood Pressure 250/134 H Blood Pressure Mean 172 Pulse Oximetry 89 L 96 Oxygen Delivery Method Room Air Oxygen Flow Rate Fraction of Inspired Oxygen 30 Sepsis Recent Fever Within 48 Hours No Sepsis New/Unexplained Change in Mental Status No Sepsis Action Taken by Nursing Physician Notified 12/25/21 14:55 12/25/21 14:55 12/25/21 15:00 Temperature Temperature Source Pulse Rate 138 H 141 H Pulse Rate from SpO2 Sensor 142 H 156 H Pulse Rhythm Pulse Strength Respiratory Rate 26 H 31 H Respiratory Effort / Characteristics Respiratory Depth Respiratory Pattern Blood Pressure 250/134 H Blood Pressure Mean 172 Pulse Oximetry 96 99 Oxygen Delivery Method Oxygen Flow Rate Fraction of Inspired Oxygen Sepsis Recent Fever Within 48 Hours Sepsis New/Unexplained Change in Mental Status Sepsis Action Taken by Nursing 12/25/21 15:10 12/25/21 15:15 12/25/21 15:15 Temperature Temperature Source Pulse Rate 147 H 144 H Pulse Rate from SpO2 Sensor 147 H 144 H Pulse Rhythm Pulse Strength Respiratory Rate 34 H 26 H Respiratory Effort / Characteristics Respiratory Depth Respiratory Pattern Blood Pressure 212/119 H Blood Pressure Mean 150 Pulse Oximetry 96 97 Oxygen Delivery Method Oxygen Flow Rate Fraction of Inspired Oxygen Sepsis Recent Fever Within 48 Hours Sepsis New/Unexplained Change in Mental Status Sepsis Action Taken by Nursing 12/25/21 15:20 12/25/21 15:25 12/25/21 15:25 Temperature Temperature Source Pulse Rate 144 H 145 H Pulse Rate from SpO2 Sensor 148 H 147 H Pulse Rhythm Pulse Strength Respiratory Rate 34 H 29 H Respiratory Effort / Characteristics Respiratory Depth Respiratory Pattern Blood Pressure 220/120 H Blood Pressure Mean 153 Pulse Oximetry 95 97 Oxygen Delivery Method Oxygen Flow Rate Fraction of Inspired Oxygen Sepsis Recent Fever Within 48 Hours Sepsis New/Unexplained Change in Mental Status Sepsis Action Taken by Nursing 12/25/21 15:28 12/25/21 15:28 12/25/21 15:30 Temperature Temperature Source Pulse Rate 137 H 136 H Pulse Rate from SpO2 Sensor 141 H 139 H Pulse Rhythm Pulse Strength Respiratory Rate 25 H 28 H Respiratory Effort / Characteristics Respiratory Depth Respiratory Pattern Blood Pressure 194/116 H Blood Pressure Mean 142 Pulse Oximetry 98 97 Oxygen Delivery Method Oxygen Flow Rate Fraction of Inspired Oxygen Sepsis Recent Fever Within 48 Hours Sepsis New/Unexplained Change in Mental Status Sepsis Action Taken by Nursing 12/25/21 15:33 12/25/21 15:33 12/25/21 15:35 Temperature Temperature Source Pulse Rate 139 H Pulse Rate from SpO2 Sensor 141 H Pulse Rhythm Pulse Strength Respiratory Rate 28 H Respiratory Effort / Characteristics Respiratory Depth Respiratory Pattern Blood Pressure 203/120 H 179/111 H Blood Pressure Mean 147 133 Pulse Oximetry 98 Oxygen Delivery Method Oxygen Flow Rate Fraction of Inspired Oxygen Sepsis Recent Fever Within 48 Hours Sepsis New/Unexplained Change in Mental Status Sepsis Action Taken by Nursing 12/25/21 15:35 12/25/21 15:40 12/25/21 16:11 Temperature Temperature Source Pulse Rate 135 H 129 H Pulse Rate from SpO2 Sensor 132 H 130 H Pulse Rhythm Pulse Strength Respiratory Rate 27 H 21 Respiratory Effort / Characteristics Respiratory Depth Respiratory Pattern Blood Pressure 192/110 H Blood Pressure Mean 137 Pulse Oximetry 93 98 Oxygen Delivery Method Oxygen Flow Rate Fraction of Inspired Oxygen Sepsis Recent Fever Within 48 Hours Sepsis New/Unexplained Change in Mental Status Sepsis Action Taken by Nursing 12/25/21 16:11 12/25/21 16:15 12/25/21 16:15 Temperature Temperature Source Pulse Rate 128 H 125 H Pulse Rate from SpO2 Sensor 121 H Pulse Rhythm Pulse Strength Respiratory Rate 16 30 H Respiratory Effort / Characteristics Respiratory Depth Respiratory Pattern Blood Pressure 170/104 H Blood Pressure Mean 126 Pulse Oximetry 95 Oxygen Delivery Method Oxygen Flow Rate Fraction of Inspired Oxygen Sepsis Recent Fever Within 48 Hours Sepsis New/Unexplained Change in Mental Status Sepsis Action Taken by Nursing 12/25/21 16:20 12/25/21 15:00 12/25/21 15:00 Temperature Temperature Source Pulse Rate 130 H Pulse Rate from SpO2 Sensor 128 H Pulse Rhythm Pulse Strength Respiratory Rate 17 Respiratory Effort / Characteristics Labored Respiratory Depth Respiratory Pattern Blood Pressure Blood Pressure Mean Pulse Oximetry 94 Oxygen Delivery Method Nasal Cannula Oxygen Flow Rate 2 Fraction of Inspired Oxygen Sepsis Recent Fever Within 48 Hours Sepsis New/Unexplained Change in Mental Status Sepsis Action Taken by Nursing 12/25/21 16:45 12/25/21 16:30 12/25/21 16:30 Temperature Temperature Source Pulse Rate 125 H Pulse Rate from SpO2 Sensor 115 H Pulse Rhythm Pulse Strength Respiratory Rate 17 Respiratory Effort / Characteristics Respiratory Depth Respiratory Pattern Blood Pressure 198/96 H Blood Pressure Mean 130 Pulse Oximetry 94 94 Oxygen Delivery Method BiPAP Oxygen Flow Rate Fraction of Inspired Oxygen Sepsis Recent Fever Within 48 Hours Sepsis New/Unexplained Change in Mental Status Sepsis Action Taken by Nursing 12/25/21 16:37 12/25/21 16:37 12/25/21 16:39 Temperature Temperature Source Pulse Rate 89 85 Pulse Rate from SpO2 Sensor 90 90 Pulse Rhythm Pulse Strength Respiratory Rate 24 19 Respiratory Effort / Characteristics Respiratory Depth Respiratory Pattern Blood Pressure 139/82 Blood Pressure Mean 101 Pulse Oximetry 96 94 Oxygen Delivery Method Oxygen Flow Rate Fraction of Inspired Oxygen Sepsis Recent Fever Within 48 Hours Sepsis New/Unexplained Change in Mental Status Sepsis Action Taken by Nursing 12/25/21 16:39 12/25/21 16:40 12/25/21 16:45 Temperature Temperature Source Pulse Rate 88 Pulse Rate from SpO2 Sensor 88 Pulse Rhythm Pulse Strength Respiratory Rate 19 Respiratory Effort / Characteristics Respiratory Depth Respiratory Pattern Blood Pressure 158/76 H 187/87 H Blood Pressure Mean 103 120 Pulse Oximetry 93 Oxygen Delivery Method Oxygen Flow Rate Fraction of Inspired Oxygen Sepsis Recent Fever Within 48 Hours Sepsis New/Unexplained Change in Mental Status Sepsis Action Taken by Nursing 12/25/21 16:45 12/25/21 16:50 12/25/21 17:00 Temperature Temperature Source Pulse Rate 88 84 Pulse Rate from SpO2 Sensor 88 84 Pulse Rhythm Pulse Strength Respiratory Rate 21 17 Respiratory Effort / Characteristics Respiratory Depth Respiratory Pattern Blood Pressure 189/94 H Blood Pressure Mean 125 Pulse Oximetry 92 96 Oxygen Delivery Method Oxygen Flow Rate Fraction of Inspired Oxygen Sepsis Recent Fever Within 48 Hours Sepsis New/Unexplained Change in Mental Status Sepsis Action Taken by Nursing 12/25/21 17:00 12/25/21 17:10 12/25/21 17:15 Temperature Temperature Source Pulse Rate 101 H 93 H Pulse Rate from SpO2 Sensor 98 H 98 H Pulse Rhythm Pulse Strength Respiratory Rate 21 20 Respiratory Effort / Characteristics Respiratory Depth Respiratory Pattern Blood Pressure 186/81 H Blood Pressure Mean 116 Pulse Oximetry 92 92 Oxygen Delivery Method Oxygen Flow Rate Fraction of Inspired Oxygen Sepsis Recent Fever Within 48 Hours Sepsis New/Unexplained Change in Mental Status Sepsis Action Taken by Nursing 12/25/21 17:15 12/25/21 17:20 12/25/21 17:30 Temperature Temperature Source Pulse Rate 87 84 Pulse Rate from SpO2 Sensor 87 84 Pulse Rhythm Pulse Strength Respiratory Rate 18 17 Respiratory Effort / Characteristics Respiratory Depth Respiratory Pattern Blood Pressure 137/69 Blood Pressure Mean 91 Pulse Oximetry 97 96 Oxygen Delivery Method Oxygen Flow Rate Fraction of Inspired Oxygen Sepsis Recent Fever Within 48 Hours Sepsis New/Unexplained Change in Mental Status Sepsis Action Taken by Nursing 12/25/21 17:30 12/25/21 17:40 12/25/21 17:50 Temperature Temperature Source Pulse Rate 80 96 H 102 H Pulse Rate from SpO2 Sensor 82 95 H 102 H Pulse Rhythm Pulse Strength Respiratory Rate 15 29 H 14 Respiratory Effort / Characteristics Respiratory Depth Respiratory Pattern Blood Pressure Blood Pressure Mean Pulse Oximetry 94 94 96 Oxygen Delivery Method Oxygen Flow Rate Fraction of Inspired Oxygen Sepsis Recent Fever Within 48 Hours Sepsis New/Unexplained Change in Mental Status Sepsis Action Taken by Nursing Laboratory Data Result diagrams: 12/25/21 15:12 12/25/21 15:12 Lab Results 12/25/21 12/25/21 12/25/21 Range/Units 15:00 15:12 15:12 WBC 24.69 H (4.8-10.8) K/ul RBC 4.76 (4.63-6.08) M/uL Hgb 15.1 (14.0-18.0) g/dl POC Hgb (14.0-18.0) g/dl Hct 44.9 (40.1-51.0) % POC Hct (42-52) % MCV 94.3 (80.0-100.0) fL MCH 31.7 (25.0-34.0) pg MCHC 33.6 (32.0-36.0) g/dL RDW Std Deviation 45.7 (36.4-46.3) fL RDW Coeff of Pepe 13.2 (11.5-14.5) % Plt Count 353 (130-400) K/uL MPV 10.0 (9.4-12.4) fL Immature Gran % (Auto) 1.2 % Neut % (Auto) 86.7 % Lymph % (Auto) 4.5 % [place] % (Auto) 5.3 % Eos % (Auto) 2.2 % Baso % (Auto) 0.1 % Neut # (Auto) 21.39 H (1.4-6.5) K/uL Lymph # (Auto) 1.12 L (1.2-3.4) K/uL [place] # (Auto) 1.32 H (0.24-0.82) K/uL Eos # (Auto) 0.54 H (0-0.50) K/uL Baso # (Auto) 0.02 (0-0.2) K/uL Immature Gran # (Auto) 0.30 H (0.00-0.02) K/uL D-Dimer (0-500) ug/L FEU VBG pH (7.36-7.41) VBG pCO2 (38-50) mmHg VBG pO2 mmHg VBG HCO3 mmol/L VBG O2 Saturation % VBG Base Excess mEq/L POC Sodium (135-144) mmol/L Sodium 137 (136-145) mmol/L POC Potassium (3.3-5.0) mmol/L Potassium 3.7 (3.5-5.1) mmol/L POC Chloride (101-112) mmol/L Chloride 98 (98-107) mmol/L Carbon Dioxide 30 (21-32) mmol/L POC Total CO2 (24-31) mmol/L Anion Gap 9 (3-11) POC Anion Gap (16-25) mmol/L POC BUN (7-18) mg/dl BUN 31 H (6-23) mg/dl Creatinine 1.07 (0.6-1.4) mg/dl POC Creatinine (0.6-1.3) mg/dl Est Cr Clr Drug Dosing 41.4 ml/min Est GFR ( Amer) 71.5 ml/min Est GFR (Non-Af Amer) 61.7 ml/min BUN/Creatinine Ratio 29.0 H (10-20) Glucose 90 (70-99(Fasting)) mg/dl POC Glucose (other) (70-99) mg/dl Calcium 10.2 H (8.5-10.1) mg/dl POC Ioniz Calcium Alexi (1.12-1.32) mmol/l Total Bilirubin 0.7 (0.2-1.0) mg/dl AST 23 (13-39) U/L ALT 26 (7-52) U/L Alkaline Phosphatase 74 (34-104) U/L Troponin I High Sens 67.3 H* (0-20) pg/ml Total Protein 7.2 (6.0-8.3) gm/dl Albumin 4.0 (3.4-5.0) gm/dl Globulin 3.2 (2.5-4.0) gm/dl Albumin/Globulin Ratio 1.3 (0.9-2) Lipase 43 (11-82) U/L Procalcitonin (0-0.5) ng/ml SARS-CoV-2, RNA, NAAT NEGATIVE (NEGATIVE) 12/25/21 12/25/21 12/25/21 Range/Units 15:12 15:12 15:13 WBC (4.8-10.8) K/ul RBC (4.63-6.08) M/uL Hgb (14.0-18.0) g/dl POC Hgb (14.0-18.0) g/dl Hct (40.1-51.0) % POC Hct (42-52) % MCV (80.0-100.0) fL MCH (25.0-34.0) pg MCHC (32.0-36.0) g/dL RDW Std Deviation (36.4-46.3) fL RDW Coeff of Pepe (11.5-14.5) % Plt Count (130-400) K/uL MPV (9.4-12.4) fL Immature Gran % (Auto) % Neut % (Auto) % Lymph % (Auto) % [place] % (Auto) % Eos % (Auto) % Baso % (Auto) % Neut # (Auto) (1.4-6.5) K/uL Lymph # (Auto) (1.2-3.4) K/uL [place] # (Auto) (0.24-0.82) K/uL Eos # (Auto) (0-0.50) K/uL Baso # (Auto) (0-0.2) K/uL Immature Gran # (Auto) (0.00-0.02) K/uL D-Dimer 2190 H* (0-500) ug/L FEU VBG pH 7.40 (7.36-7.41) VBG pCO2 57 H (38-50) mmHg VBG pO2 40 mmHg VBG HCO3 35 mmol/L VBG O2 Saturation 72.4 % VBG Base Excess 8.5 mEq/L POC Sodium (135-144) mmol/L Sodium (136-145) mmol/L POC Potassium (3.3-5.0) mmol/L Potassium (3.5-5.1) mmol/L POC Chloride (101-112) mmol/L Chloride (98-107) mmol/L Carbon Dioxide (21-32) mmol/L POC Total CO2 (24-31) mmol/L Anion Gap (3-11) POC Anion Gap (16-25) mmol/L POC BUN (7-18) mg/dl BUN (6-23) mg/dl Creatinine (0.6-1.4) mg/dl POC Creatinine (0.6-1.3) mg/dl Est Cr Clr Drug Dosing ml/min Est GFR ( Amer) ml/min Est GFR (Non-Af Amer) ml/min BUN/Creatinine Ratio (10-20) Glucose (70-99(Fasting)) mg/dl POC Glucose (other) (70-99) mg/dl Calcium (8.5-10.1) mg/dl POC Ioniz Calcium Alexi (1.12-1.32) mmol/l Total Bilirubin (0.2-1.0) mg/dl AST (13-39) U/L ALT (7-52) U/L Alkaline Phosphatase (34-104) U/L Troponin I High Sens (0-20) pg/ml Total Protein (6.0-8.3) gm/dl Albumin (3.4-5.0) gm/dl Globulin (2.5-4.0) gm/dl Albumin/Globulin Ratio (0.9-2) Lipase (11-82) U/L Procalcitonin 0.08 (0-0.5) ng/ml SARS-CoV-2, RNA, NAAT (NEGATIVE) 12/25/21 Range/Units 15:13 WBC (4.8-10.8) K/ul RBC (4.63-6.08) M/uL Hgb (14.0-18.0) g/dl POC Hgb 16.0 (14.0-18.0) g/dl Hct (40.1-51.0) % POC Hct 47 (42-52) % MCV (80.0-100.0) fL MCH (25.0-34.0) pg MCHC (32.0-36.0) g/dL RDW Std Deviation (36.4-46.3) fL RDW Coeff of Pepe (11.5-14.5) % Plt Count (130-400) K/uL MPV (9.4-12.4) fL Immature Gran % (Auto) % Neut % (Auto) % Lymph % (Auto) % [place] % (Auto) % Eos % (Auto) % Baso % (Auto) % Neut # (Auto) (1.4-6.5) K/uL Lymph # (Auto) (1.2-3.4) K/uL [place] # (Auto) (0.24-0.82) K/uL Eos # (Auto) (0-0.50) K/uL Baso # (Auto) (0-0.2) K/uL Immature Gran # (Auto) (0.00-0.02) K/uL D-Dimer (0-500) ug/L FEU VBG pH (7.36-7.41) VBG pCO2 (38-50) mmHg VBG pO2 mmHg VBG HCO3 mmol/L VBG O2 Saturation % VBG Base Excess mEq/L POC Sodium 137 (135-144) mmol/L Sodium (136-145) mmol/L POC Potassium 3.8 (3.3-5.0) mmol/L Potassium (3.5-5.1) mmol/L POC Chloride 97 L (101-112) mmol/L Chloride (98-107) mmol/L Carbon Dioxide (21-32) mmol/L POC Total CO2 32 H (24-31) mmol/L Anion Gap (3-11) POC Anion Gap 13.0 L (16-25) mmol/L POC BUN 31 H (7-18) mg/dl BUN (6-23) mg/dl Creatinine (0.6-1.4) mg/dl POC Creatinine 1.0 (0.6-1.3) mg/dl Est Cr Clr Drug Dosing ml/min Est GFR ( Amer) ml/min Est GFR (Non-Af Amer) ml/min BUN/Creatinine Ratio (10-20) Glucose (70-99(Fasting)) mg/dl POC Glucose (other) 97 (70-99) mg/dl Calcium (8.5-10.1) mg/dl POC Ioniz Calcium Alexi 1.33 H (1.12-1.32) mmol/l Total Bilirubin (0.2-1.0) mg/dl AST (13-39) U/L ALT (7-52) U/L Alkaline Phosphatase (34-104) U/L Troponin I High Sens (0-20) pg/ml Total Protein (6.0-8.3) gm/dl Albumin (3.4-5.0) gm/dl Globulin (2.5-4.0) gm/dl Albumin/Globulin Ratio (0.9-2) Lipase (11-82) U/L Procalcitonin (0-0.5) ng/ml SARS-CoV-2, RNA, NAAT (NEGATIVE) Administered Medications Lidocaine (Lidocaine 5% 1 Patch) [address] [facility] Stop: 01/24/22 17:44 Last Admin: 12/25/21 18:20 Dose: 1 patch Documented By: JULIAN Discontinued Medications Albuterol (Albuterol 0.083% Nebu Soln 3 Ml Vial) 5 mg NEB NOW STA; Protocol Stop: 12/25/21 15:00 Last Admin: 12/25/21 15:17 Dose: 5 mg Documented By: JULIAN Clonidine HCl (Clonidine Hcl 0.1 Mg Tab) 0.1 mg PO NOW ONE Stop: 12/25/21 17:23 Last Admin: 12/25/21 17:58 Dose: Not Given Documented By: JULIAN Furosemide (Furosemide Inj 20 Mg/2 Ml Vial) 20 mg IV ONE ONE Stop: 12/25/21 17:17 Last Admin: 12/25/21 18:34 Dose: 20 mg Documented By: JULIAN Sodium Chloride (Nss 1000ml) 1,000 mls @ 999 mls/hr IV .Q1H1M ONE Stop: 12/25/21 16:07 Last Infusion: 12/25/21 17:12 Dose: 0 mls/hr Documented By: Admin: 12/25/21 15:19 Dose: 999 mls/hr Documented By: JULIAN Ceftriaxone Sodium (Rocephin) 2,000 mg in 70 mls @ 140 mls/hr IV NOW STA Stop: 12/25/21 16:21 Last Infusion: 12/25/21 17:00 Dose: 0 mls/hr Documented By: Admin: 12/25/21 16:28 Dose: 140 mls/hr Documented By: JULIAN Azithromycin 500 mg/ Dextrose 255 mls @ 125 mls/hr IV ONE ONE Stop: 12/25/21 17:54 Last Infusion: 12/25/21 20:24 Dose: 0 mls/hr Documented By: Admin: 12/25/21 17:42 Dose: 125 mls/hr Documented By: JULIAN Acetaminophen (Ofirmev) 1,000 mg in 100 mls @ 400 mls/hr IV NOW STA Stop: 12/25/21 17:34 Last Admin: 12/25/21 20:24 Dose: Not Given Documented By: EMELIA Ioversol (Optiray 300 500ml) 100 ml IV ONCE ONE Stop: 12/25/21 16:10 Last Admin: 12/25/21 16:09 Dose: 117 ml Documented By: CYRUS Labetalol HCl (Labetalol Hcl Iv 5 Mg/Ml 20ml) 10 mg IV NOW STA Stop: 12/25/21 16:16 Last Admin: 12/25/21 16:28 Dose: 10 mg Documented By: JULIAN Co-signed By: OAM Methylprednisolone (Methylprednisolone 40 Mg/Ml Vial) 40 mg IV NOW STA Stop: 12/25/21 15:00 Last Admin: 12/25/21 15:17 Dose: 40 mg Documented By: JULIAN Morphine Sulfate (Morphine Sulfate 2 Mg/Ml Carp) 2 mg IV NOW STA Stop: 12/25/21 18:23 Last Admin: 12/25/21 18:34 Dose: 2 mg Documented By: JULIAN Nitroglycerin (Nitroglycerin 2% Ointment 30gm Tube) 2 inch EXT Q6H SHERLYN Stop: 01/24/22 15:14 Last Admin: 12/25/21 15:25 Dose: 2 inch Documented By: JUDAH Imaging Data Radiologist's Impression: Chest X-Ray 12/25/21 15:00 XR chest 1V portable CLINICAL HISTORY: Chest Pain. COMPARISON STUDY: 12/04/2020 TECHNIQUE: 1 view of the chest FINDINGS: Single frontal view of the chest demonstrates the cardiomediastinal silhouette to be within normal limits. The lungs are clear of alveolar opacities. There is no evidence for pleural effusion. There is no evidence for vascular congestion. There is no acute osseous pathology. IMPRESSION: 1. No acute cardiopulmonary disease. ACT 112: Negative or not required by law. Electronically signed by: Terry Mccoy M.D. 12/25/2021 3:44 PM Chest CTA 12/25/21 15:01 CT angio chest PE protocol CLINICAL HISTORY: sob and chest pain. History of right upper lobe nodule COMPARISON STUDY: Portable chest from 07/25/[address] chest from 03/02/[address]21 CT DOSE: 319.92 mGy.cm TECHNIQUE: CT Angio of the chest was performed.followed by image post processing with coronal, and sagittal MIP reformats. Contrast Volume: Optiray 300, 117 ml FINDINGS: Vasculature: There is homogeneous perfusion of the pulmonary vasculature bilaterally. No intraluminal filling defects or evidence for pulmonary embolus is seen. Airway: The airway is clear. No endobronchial lesion is identified. Lungs: Compared to the previous CT, there has been interval development of large right upper lobe soft tissue mass measuring 5.3 x 4.2 cm. On further review, it can be seen radiographically. It invades the posterior fourth and fifth ribs with cortical destruction present. The remainder of the lungs are clear of acute alveolar opacities, air bronchograms or additional pathologic pulmonary nodules. Pleura: There is no evidence for pleural effusion. There is no evidence for pneumothorax. Mediastinum: There is no evidence for pathologic adenopathy. The heart size is within normal limits. Coronary artery calcifications present. The thoracic aorta is within normal limits. There is no evidence for pericardial effusion. Upper abdomen: The adrenal glands are normal bilaterally. Osseous structures: There is no acute osseous pathology. Impression: 1. No CTA evidence for pulmonary embolus. 2. Compared to the previous CT examination, right upper lobe pulmonary nodule has significantly increased in size measuring 5.2 cm. The findings are characteristic of lung cancer. 3. The right upper lobe mass invades the adjacent posterior right fourth and fifth ribs with bone destruction present. ACT 112: Negative or not required by law. Electronically signed by: Terry Mccoy M.D. 12/25/2021 4:22 PM Venous Doppler Study 12/25/21 17:16 US venous doppler LE RT CLINICAL HISTORY: Right lower extremity edema COMPARISON: None available at the time of this dictation. TECHNIQUE: Right lower extremity real-time compression venous ultrasound with Color Doppler imaging. Utilizing real-time ultrasonic imaging multiple real time high-resolution ultrasonic images with compression and noncompression maneuvers of the deep veno us system in addition to color doppler imaging were performed from the common femoral vein through the proximal calf veins. FINDINGS: Currently there is normal compressibility of the deep venous system from the common femoral vein through the proximal calf veins. No current evidence of acute thrombosis is identified. Impression: 1. No evidence of deep venous thrombus. ACT 112: Negative or not required by law. Electronically signed by: Terry Mccoy M.D. 12/25/2021 6:49 PM Discharge Plan Visit Data Chief Complaint: Shortness of Breath/Dyspnea ED Provider: Kong Riebra Discharge Problem: Respiratory failure, Breath shortness, Hypoxia, Tachycardia, Lung mass, Elevated troponin Patient Disposition: Admitted As Inpatient Discharge Instructions Interventions: ED Discharge Assessment Last Done: 12/25/21 19:34
[2021-12-25] MEDS ORDERED: NITROGLYCERIN 2% OINTMENT 30GM TUBE EXT SCH (15:15)
[2021-12-25 15:25] LABS: iSTAT Ionized Calcium 1.33 mmol/l (1.12-1.32); iSTAT Potassium 3.8 mmol/L (3.3-5.0)
[2021-12-25 15:35] LABS: Base Excess VBG 8.5 mEq/L; HCO3 VBG 35 mmol/L; Oxygen Saturation VBG 72.4 %; PCO2 VBG 57 mmHg (38-50); PO2 VBG 40 mmHg
[2021-12-25 15:35] LABS: Hematocrit (blood only) 44.9 % (40.1-51.0); Hemoglobin 15.1 g/dl (14.0-18.0); Mean Corpuscular Hemoglobin 31.7 pg (25.0-34.0); Mean Corpuscular Hgb Conc 33.6 g/dL (32.0-36.0); Mean Corpuscular Volume 94.3 fL (80.0-100.0); Platelet Count 353 K/uL (130-400); RDW Coefficient of Variation 13.2 % (11.5-14.5); RDW Standard Deviation 45.7 fL (36.4-46.3); Red Blood Count 4.76 M/uL (4.63-6.08); White Blood Count 24.69 K/ul (4.8-10.8)
--- NOTE | 2021-12-25 15:45 | XRay Report ---
XR chest 1V portable CLINICAL HISTORY: Chest Pain. COMPARISON STUDY: 12/04/2020 TECHNIQUE: 1 view of the chest FINDINGS: Single frontal view of the chest demonstrates the cardiomediastinal silhouette to be within normal li mits. The lungs are clear of alveolar opacities. There is no evidence for pleural effusion. There is no evidence for vascular congestion. There is no acute osseous pathology. IMPRESSION: 1. No acute cardiopulmonary disease. ACT 112: Negative or not required by law. Electronically signed by: Terry Mccoy M.D. 12/25/2021 3:44 PM
[2021-12-25 15:51] LABS: Basophils # (auto) 0.02 K/uL (0-0.2); Basophils % (auto) 0.1 %; Eosinophils # (auto) 0.54 K/uL (0-0.50); Eosinophils % (auto) 2.2 %; Immature Granulocytes % (auto) 1.2 %; Lymphocytes # (auto) 1.12 K/uL (1.2-3.4); Lymphocytes % (auto) 4.5 %; Monocytes # (auto) 1.32 K/uL (0.24-0.82); Monocytes % (auto) 5.3 %; Neutrophils # (auto) 21.39 K/uL (1.4-6.5); Neutrophils % (auto) 86.7 %
[2021-12-25] MEDS ORDERED: AZITHROMYCIN 500 MG in DEXTROSE 5% 250 ML IV ONE (15:52)
[2021-12-25] MEDS ORDERED: cefTRIAXone SODIUM 2,000 MG/70 ML BAG IV STA (15:52)
[2021-12-25 15:54] LABS: D Dimer 2190 ug/L FEU (0-500)
[2021-12-25 15:57] LABS: Albumin Globulin Ratio 1.3 (0.9-2); Bilirubin,Total 0.7 mg/dl (0.2-1.0); Calcium 10.2 mg/dl (8.5-10.1); Creatinine Clr Calc Pharmacy 41.4 ml/min; Est GFR (African American) 71.5 ml/min; Est GFR (Non-African American) 61.7 ml/min; Globulin 3.2 gm/dl (2.5-4.0); Potassium 3.7 mmol/L (3.5-5.1); Total Protein 7.2 gm/dl (6.0-8.3)
[2021-12-25] MEDS ORDERED: OPTIRAY 300 500mL IV ONE (16:09)
[2021-12-25 16:13] LABS: Troponin I High Sensitivity 67.3 pg/ml (0-20)
[2021-12-25] MEDS ORDERED: LABETALOL HCL IV 5 MG/ML 20ML IV STA (16:15)
--- NOTE | 2021-12-25 16:24 | CT Scan Report ---
CT angio chest PE protocol CLINICAL HISTORY: sob and chest pain. History of right upper lobe nodule COMPARISON STUDY: Portable chest from 07/25/[address] chest from 03/02/[address]21 CT DOSE: 319.92 mGy.cm TECHNIQUE: CT Angio of the chest was performed.followed by image post processing with coronal, and s agittal MIP reformats. Contrast Volume: Optiray 300, 117 ml FINDINGS: Vasculature: There is homogeneous perfusion of the pulmonary vasculature bilaterally. No intraluminal filling defects or evidence for pulmonary embolus is seen. Airway: The airway is clear. No endobronchial lesion is identified. Lungs: Compared to the previous CT, there has been interval development of large right upper lobe sof t tissue mass measuring 5.3 x 4.2 cm. On further review, it can be seen radiographically. It invades the posterior fourth and fifth ribs with cortical destruction present. The remainder of the lungs are clear of acute alveolar opacities, air bronchograms or additional path ologic pulmonary nodules. Pleura: There is no evidence for pleural effusion. There is no evidence for pneumothorax. Mediastinum: There is no evidence for pathologic adenopathy. The heart size is within normal limits. Coronary artery calcifications present. The thoracic aorta is within normal limits. There is no evide nce for pericardial effusion. Upper abdomen: The adrenal glands are normal bilaterally. Osseous structures: There is no acute osseous pathology. Impression: 1. No CTA evidence for pulmonary embolus. 2. Compared to the previous CT examination, right upper lobe pulmonary nodule has significantly incre ased in size measuring 5.2 cm. The findings are characteristic of lung cancer. 3. The right upper lobe mass invades the adjacent posterior right fourth and fifth ribs with bone tasha truction present. ACT 112: Negative or not required by law. Electronically signed by: Terry Mccoy M.D. 12/25/2021 4:22 PM
[2021-12-25] MEDS ORDERED: FUROSEMIDE INJ 20 MG/2 ML VIAL IV ONE (17:16)
[2021-12-25] MEDS ORDERED: ACETAMINOPHEN 1,000 MG/100 ML VIAL IV STA (17:20)
[2021-12-25] MEDS ORDERED: cloNIDine HCL 0.1 MG TAB PO ONE (17:22)
--- NOTE | 2021-12-25 17:35 | History & Physical Report ---
Date of Service December 25, 2021 Assessment & Plan (1) Hypoxia: Plan: Patient presents with hypoxia with respiratory failure requiring BIPAP in the setting of elevated blood pressure - is without any pulmonary edema but with peripheral edema - CTA of the chest negative for PE and thoracic aorta within normal limits - does not appear to be COPD exacerbation as not with bronchospastic or elevated CO2 on VBG - responded well with BiPAP and BP control- however as above without pulmonary edema making SCAPE unlikely - Without acute STEMI on ECG - Will lower blood pressure, diuretic given for peripheral edema, continue with scheduled nebulziers, wean down BIPAP - BiPAP overnight/as needed Currently unsure of his inciting event, however was acute- will treat likely contributors like pain, edema, elevated blood pressure, (2) Elevated troponin: Plan: Elevated HsCTNI - 65 with increase to [address] elevation or ECG changes on admission - continue to trend ECG and HScTNI - Likely demand from hypoxia and markedly elevated BP on arrival - ECHO in am - if continues to increase through PM consider heparin infusion if likely to undergo cath or ECG changes (3) Lung nodule: Plan: Known with increase in size now with invasion to ribs and chest wall - Manage hypoxia, BP, and pain - follow his troponin- once stabilized re-engage with either following up with obtaining Biopsy or possible heme/onc/rad-onc for palliative radiation - Pulmonary unable to biopsy secondary to location - would need IR - no mediastinal adenopathy reported on CT scan (4) Seizure prophylaxis: Plan: Following history of intraparenchymal bleed that appears to have been sponta neous 2020 - continue keppra 500mg PO BID (5) HTN (hypertension): Plan: 200/120s noted on admission to the EMD associated with above symptoms - patient usnure of what medications he did take today - given 10mg of Labetalol in the EMD with placement of nitro-paste- nitropaste removed - Lasix 20mg Given - BP downtrending appropriate- goal 140-180 tonight- with evidence of multiple organ dysfunction with this making htn emergency likely - support and follow (6) COPD with emphysema: Plan: COPD history however he does not take inhalers at home nor any PFTs available for review - Doubt that this is a COPD exacerbation at this time- he was given steroid dose and AZT in the EMD- will not continue these - patient states he is supposed to be on two- he remembers albuterol but can't remember the other - family states that when he uses them his blood pressure increases - Continue with Albuterol scheduled nebulizers q8 hours- as above defer to further steroid treatment by rounding team - BiPAP weaned off following blood pressure control and pain control - Oxygen as needed for spO2 88-92% (7) Peripheral arterial disease: Plan: No acute needs, pulses remain palpable with warm feet bilaterally - continue aspirin and statin - swelling greater on right side - surgical side- negative for DVT via venous duplex study (8) Impaired fasting glucose: Plan: Follow not on therapy (9) Chronic kidney disease, stage III (moderate): Plan: Stable without acute worsening - follow - avoid further nephrotoxic medications (10) Hypercholesterolemia: Plan: Continue statin (11) Leukocytosis: Plan: Leukocytosis with negative PCT fever or infectious etiology and noted stressful event today - just completed prednisone course - blood cultures performed - PCT negative as above, afebrile, CXR clean and no other suspected source at this time - Follow in AM (12) 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 continue with his home eye drops History of Present Illness Chief Complaint: shortness of breath Primary Care Provider: MASTER Coon 86 YOM with medical history of: Emphysema (not compliant with inhalers at home), Intraparenchymal hemorrhage following fall in 06/03, 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 Patient had tumor board evaluation in Mar 03. Patient was to have IR biopsy completed in 04/03 but failed to make it to appointment following the above fall with [facility]. Patient has also been being treated requiring surgical intervention with bilateral angioplasty and stenting of his right SFA ~09/02. Patient has been following up with PCP and pain management for thoracic pain which he was recently treated with oral steroids, just completing this course yesterday. Patient comes to the EMD today for acute onset of difficulty breathing, patient states this started this morning around 10 o'clock and got progressively worse. He denies any chest pain or trauma. States that he just felt like he couldn't get a breath in or catch his breath. In the EMD the patient arrived tachypneic, tachycardic, hypertensive, and hypoxic to 89. He was placed to BiPAP, had CXR completed and CTA of his chest. CTA of the chest was negative for pulmonary embolism and for any infectious process or pulmonary edema. However the the right upper lobe pulmonary mass increased in size now measuring 5.3 x 4.2 also invading the ribs with destruction of bone. For his elevated blood pressure he was given Labetalol IV and placed on nitro-paste. For his dyspnea he was given 40mg IV methylprednisone. Patient's BP downtrending, patient feels his breathing is markedly improved since he arrived. Will continue to lower blood pressure and likely be able to lower his pulmonary support with such. Pain control and re-engage services in evaluating/biopsying this lung mass. COVID test on admission is: NEGATIVE Allergies Allergy/AdvReac Type Severity Reaction Status Date / Time baclofen Allergy Unknown Unknown Verified 11/22/21 13:26 carvedilol Allergy Unknown Unknown Verified 11/22/21 13:26 clozapine Allergy Unknown unknown Verified 11/22/21 13:26 haloperidol Allergy Unknown unknown Verified 11/22/21 13:26 metoclopramide Allergy Unknown Unknown Verified 11/22/21 13:26 Phenothiazines Allergy Unknown unkonwn Verified 11/22/21 13:26 Home Medications Medication Instructions Recorded Confirmed Type multivitamin 1 tab PO QAM 02/11/18 11/22/21 History brimonidine 0.2 %-timolol 0.5 % 1 drops ophthalmic (eye) BID 11/12/18 11/22/21 History eye drops (Combigan) loratadine 10 mg tablet (Claritin) 10 mg PO DAILY PRN Allergy Symptoms 06/11/20 11/22/21 History psyllium husk 3.4 gram/5.4 gram 1 tbsp PO QAM 06/11/20 11/22/21 History oral powder (Metamucil) acetaminophen 325 mg capsule 650 mg PO Q4H PRN pain #100 caps 12/24/20 11/22/21 Rx aspirin 81 mg tablet,delayed 81 mg PO QAM 08/04/21 11/22/21 History release allopurinol 100 mg tablet 100 mg PO QDD #90 tabs 08/15/21 11/22/21 Rx omeprazole 20 mg capsule,delayed 20 mg PO QAM #90 caps 08/15/21 11/22/21 Rx release pravastatin 80 mg tablet 80 mg PO HS #90 tabs 08/15/21 11/22/21 Rx amlodipine 5 mg tablet 5 mg PO QDD #90 tabs 08/22/21 11/22/21 Rx levetiracetam 500 mg tablet 500 mg PO BID #60 tabs 09/16/21 11/22/21 Rx (Keppra) clonidine HCl 0.2 mg tablet See Rx Instructions PO HS #180 tabs 10/07/21 11/22/21 Rx hydrocodone 5 mg-acetaminophen 325 1 tab PO TID PRN pain #90 tabs 11/29/21 Rx mg tablet prednisone 10 mg tablets in a dose See Rx Instructions .Route 11/29/21 Rx pack .COMPLEX #42 ea Past Med/Surg History Medical History (Updated 12/25/21 @ 20:46 by MASTER Lockhart) Acid reflux TEMO (acute kidney injury) Benign prostatic hypertrophy Chronic kidney disease, stage III (moderate) no specialist per pt COPD with emphysema pt 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 Glaucoma Gouty arthritis prednisone taper 07/19/2021 by PCP for suspected gout, persistent discoloration and pain of toes-abnormal CTA with upcoming vascular surgery History of anesthesia reaction was confused, felt like his bed was on the wall, the clock was on the floor, after approx half hr, resolved History of blood transfusion 2009 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 [facility] complete Hypercholesterolemia Hypertension Impaired fasting glucose 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, fall in setting of seizure activity, HTN; follows with [facility] neuro d/c from neurosurgery: monitoring f/u imaging to further rule out vascular malformations and "aid in diagnosis of CAA should there be progression of micro-hemorrhages" Lumbar spinal stenosis Lung nodule Peripheral vascular disease Pulmonary hypertension mild 2018 echo Pulmonary nodule to have biopsy through [facility] IR 03/2021, not yet completed per records Retinal detachment Sacroiliitis Sciatica of left side gets steroid injections Seizure 03/02/2021, fall in setting of seizure activity, HTN; follows with [facility] neuro d/c from neurosurgery: monitoring f/u imaging to further rule out vascular malformations and "aid in diagnosis of CAA should there be progression of micro-hemorrhages" Skin lesion of left ear 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 Post-op anesthesia progress note: "...was hypertensive on arrival to PACU so was treated with labetalol. He remains hypertensive but his blood pressure is lower than it was at his preoperative baseline. His other vital signs are stable." H/O aorto-femoral bypass (~2009) [address] Alfaro H/O transurethral resection of prostate History of colonoscopy History of esophagogastroduodenoscopy (EGD) with dilation Hx of non-cataract eye surgery left eye x3 for retina issues Loss of teeth due to extraction Status post aortic bifurcation bypass graft History of Bypass Graft (Non-Vein) Aortic-bifemoral > 2009 > [facility] Status post appendectomy Status post cataract surgery bilat Status post tonsillectomy and adenoidectomy Family History Sister Breast cancer Diabetes Father Parkinsons disease Prostate cancer Mother Diabetes Denies family history of Ovarian cancer Myocardial infarction Lung cancer Colorectal cancer Social History Smoking Status: Former smoker Tobacco Type: Cigarettes Age Started Using Tobacco: 14; Age Quit Using Tobacco: 64; packs per day: 1; Second Hand Exposure: No; Hx Alcohol Use: No Hx Substance Use: No Preferred Language: Yoruba Communication Ability: Effective Visual Impairment: Limited Hearing Ability: Normal Disaster Recovery Analyst Required: No Beliefs That Will Affect Care: None marital status: Current Living Situation: Alone Current Living Situation Comment: Lives in own home and can live on one floor current occupational status: retired Other Information That Helps Us Care for You: No Feels Safe at Home: Yes Safety Concerns: Feels Safe At This Time Childhood Exposure to Second-Hand Smoke: No caffeine: Yes Dental Care, Regularly: No Physical Activity Frequency: 5-6 Times per Week Seatbelt Use: always Sunscreen Use: No Assistive Devices: Walker Review of Systems Review of Systems: REVIEW OF SYSTEMS: Constitutional: No fever, sweats or chills Eyes: No diplopia, no worsening or blurred vision ENT: normal hearing, no trouble swallowing Respiratory: (+) dyspnea, hypoxia, No cough, sputum, dyspnea at rest or on exertion Cardiovascular: (+) leg swelling bilaterally, No chest pain, tightness or palpitations Abdomen: No pain, nausea, vomiting, diarrhea or constipation Musculoskeletal: (+) right shoulder back and rib pain, joint pain, calf pain, swelling Neurologic: No weakness, numbness/tingling, or balance problems Psychiatric: (+) mood swings and jitteriness with steroids, NO anxiety or depression Skin: No rash or itch Physical Exam Physical Exam: PHYSICAL EXAM: General: awake, alert, no apparent distress Head: Normocephalic, atraumatic ENT: PERRLA, EOMI, no pharyngeal exudate, mucous membranes dry Neuro: AAO x 3, speech clear and appropriate, strength intact bilaterally 5/5, sensation intact and equal all extremities and dermatomes, no pronator drift Chest: equal rise and fall of the chest, decreased in bases, no wheeze, no rhonchi, Cardiac: Regular rate and rhythm, telemetry reviewed, skin warm dry, cap refill <3 seconds, peripheral pulses +2 no JVD, no murmur, no edema GI: NABS x 4 quadrants, soft, nontender to palpation, no rebound, guarding or tenderness : Spontaneously voiding, no pain, no CVA tenderness, Extremities: Normal inspection, no peripheral edema or erythema, calfs nontender to palpation Psych: Normal mood and affect Skin: no rash or erythema Results & Data Results & Data ([facility]) Vital Signs (Past 12 Hours) Vital Signs Temp Pulse Resp BP Pulse Ox O2 Del Method O2 Flow Rate 12/25/21 16:45 94 BiPAP 12/25/21 15:00 Nasal Cannula 2 12/25/21 16:20 130 H 17 94 12/25/21 16:15 125 H 30 H 95 12/25/21 16:15 170/104 H 12/25/21 16:11 128 H 16 12/25/21 16:11 192/110 H 12/25/21 15:40 129 H 21 98 12/25/21 15:35 135 H 27 H 93 12/25/21 15:35 179/111 H 12/25/21 15:33 139 H 28 H 98 12/25/21 15:33 203/120 H 12/25/21 15:30 136 H 28 H 97 12/25/21 15:28 137 H 25 H 98 12/25/21 15:28 194/116 H 12/25/21 15:25 145 H 29 H 97 12/25/21 15:25 220/120 H 12/25/21 15:20 144 H 34 H 95 12/25/21 15:15 144 H 26 H 97 12/25/21 15:15 212/119 H 12/25/21 15:10 147 H 34 H 96 12/25/21 15:00 141 H 31 H 99 12/25/21 14:55 138 H 26 H 96 12/25/21 14:55 250/134 H 12/25/21 14:54 139 H 28 H 12/25/21 15:07 138 H 28 H 96 12/25/21 14:59 37.1 C 139 H 24 250/134 H 89 L Room Air FiO2 12/25/21 16:45 12/25/21 15:00 12/25/21 16:20 12/25/21 16:15 12/25/21 16:15 12/25/21 16:11 12/25/21 16:11 12/25/21 15:40 12/25/21 15:35 12/25/21 15:35 12/25/21 15:33 12/25/21 15:33 12/25/21 15:30 12/25/21 15:28 12/25/21 15:28 12/25/21 15:25 12/25/21 15:25 12/25/21 15:20 12/25/21 15:15 12/25/21 15:15 12/25/21 15:10 12/25/21 15:00 12/25/21 14:55 12/25/21 14:55 12/25/21 14:54 12/25/21 15:07 30 12/25/21 14:59 Laboratory Results Abnormal lab results 12/25/21 12/25/21 12/25/21 Range/Units 15:12 15:12 15:12 WBC 24.69 H (4.8-10.8) K/ul Neut # (Auto) 21.39 H (1.4-6.5) K/uL Lymph # (Auto) 1.12 L (1.2-3.4) K/uL Bledsoe # (Auto) 1.32 H (0.24-0.82) K/uL Eos # (Auto) 0.54 H (0-0.50) K/uL Immature Gran # (Auto) 0.30 H (0.00-0.02) K/uL D-Dimer 2190 H* (0-500) ug/L FEU VBG pCO2 (38-50) mmHg POC Chloride (101-112) mmol/L POC Total CO2 (24-31) mmol/L POC Anion Gap (16-25) mmol/L POC BUN (7-18) mg/dl BUN 31 H (6-23) mg/dl BUN/Creatinine Ratio 29.0 H (10-20) Calcium 10.2 H (8.5-10.1) mg/dl POC Ioniz Calcium Alexi (1.12-1.32) mmol/l Troponin I High Sens 67.3 H* (0-20) pg/ml 12/25/21 12/25/21 Range/Units 15:13 15:13 WBC (4.8-10.8) K/ul Neut # (Auto) (1.4-6.5) K/uL Lymph # (Auto) (1.2-3.4) K/uL Bledsoe # (Auto) (0.24-0.82) K/uL Eos # (Auto) (0-0.50) K/uL Immature Gran # (Auto) (0.00-0.02) K/uL D-Dimer (0-500) ug/L FEU VBG pCO2 57 H (38-50) mmHg POC Chloride 97 L (101-112) mmol/L POC Total CO2 32 H (24-31) mmol/L POC Anion Gap 13.0 L (16-25) mmol/L POC BUN 31 H (7-18) mg/dl BUN (6-23) mg/dl BUN/Creatinine Ratio (10-20) Calcium (8.5-10.1) mg/dl POC Ioniz Calcium Alexi 1.33 H (1.12-1.32) mmol/l Troponin I High Sens (0-20) pg/ml Diagnostic Findings Chest X-Ray 12/25/21 15:00 XR chest 1V portable CLINICAL HISTORY: Chest Pain. COMPARISON STUDY: 12/04/2020 TECHNIQUE: 1 view of the chest FINDINGS: Single frontal view of the chest demonstrates the cardiomediastinal silhouette to be within normal limits. The lungs are clear of alveolar opacities. There is no evidence for pleural effusion. There is no evidence for vascular congestion. There is no acute osseous pathology. IMPRESSION: 1. No acute cardiopulmonary disease. ACT 112: Negative or not required by law. Electronically signed by: Terry Mccoy M.D. 12/25/2021 3:44 PM Chest CTA 12/25/21 15:01 CT angio chest PE protocol CLINICAL HISTORY: sob and chest pain. History of right upper lobe nodule COMPARISON STUDY: Portable chest from 07/25/[address] chest from 03/02/[address]21 CT DOSE: 319.92 mGy.cm TECHNIQUE: CT Angio of the chest was performed.followed by image post processing with coronal, and sagittal MIP reformats. Contrast Volume: Optiray 300, 117 ml FINDINGS: Vasculature: There is homogeneous perfusion of the pulmonary vasculature bilaterally. No intraluminal filling defects or evidence for pulmonary embolus is seen. Airway: The airway is clear. No endobronchial lesion is identified. Lungs: Compared to the previous CT, there has been interval development of large right upper lobe soft tissue mass measuring 5.3 x 4.2 cm. On further review, it can be seen radiographically. It invades the posterior fourth and fifth ribs with cortical destruction present. The remainder of the lungs are clear of acute alveolar opacities, air bronchograms or additional pathologic pulmonary nodules. Pleura: There is no evidence for pleural effusion. There is no evidence for pneumothorax. Mediastinum: There is no evidence for pathologic adenopathy. The heart size is within normal limits. Coronary artery calcifications present. The thoracic aorta is within normal limits. There is no evidence for pericardial effusion. Upper abdomen: The adrenal glands are normal bilaterally. Osseous structures: There is no acute osseous pathology. Impression: 1. No CTA evidence for pulmonary embolus. 2. Compared to the previous CT examination, right upper lobe pulmonary nodule has significantly increased in size measuring 5.2 cm. The findings are characteristic of lung cancer. 3. The right upper lobe mass invades the adjacent posterior right fourth and fifth ribs with bone destruction present. ACT 112: Negative or not required by law. Electronically signed by: Terry Mccoy M.D. 12/25/2021 4:22 PM Medications Administered Home Medications multivitamin 1 tab PO QAM 02/11/18 [History Confirmed 11/22/21] brimonidine 0.2 %-timolol 0.5 % eye drops (Combigan) 1 drops ophthalmic (eye) BID 11/12/18 [History Confirmed 11/22/21] loratadine 10 mg tablet (Claritin) 10 mg PO DAILY PRN Allergy Symptoms 06/11/20 [History Confirmed 11/22/21] psyllium husk 3.4 gram/5.4 gram oral powder (Metamucil) 1 tbsp PO QAM 06/11/20 [History Confirmed 11/22/21] acetaminophen 325 mg capsule 650 mg PO Q4H PRN pain #100 caps 12/24/20 [Rx Confirmed 11/22/21] aspirin 81 mg tablet,delayed release 81 mg PO QAM 08/04/21 [History Confirmed 11/22/21] allopurinol 100 mg tablet 100 mg PO QDD #90 tabs 08/15/21 [Rx Confirmed 11/22/21] omeprazole 20 mg capsule,delayed release 20 mg PO QAM #90 caps 08/15/21 [Rx Confirmed 11/22/21] pravastatin 80 mg tablet 80 mg PO HS #90 tabs 08/15/21 [Rx Confirmed 11/22/21] amlodipine 5 mg tablet 5 mg PO QDD #90 tabs 08/22/21 [Rx Confirmed 11/22/21] levetiracetam 500 mg tablet (Keppra) 500 mg PO BID #60 tabs 09/16/21 [Rx Confirmed 11/22/21] clonidine HCl 0.2 mg tablet See Rx Instructions PO HS #180 tabs 10/07/21 [Rx Confirmed 11/22/21] hydrocodone 5 mg-acetaminophen 325 mg tablet 1 tab PO TID PRN pain #90 tabs 11/29/21 [Rx] prednisone 10 mg tablets in a dose pack See Rx Instructions .Route .COMPLEX #42 ea 11/29/21 [Rx] Active Medications Lidocaine (Lidocaine 5% 1 Patch) 1 patch TD QAM SHERLYN Stop: 01/24/22 17:44 Miscellaneous (Remove Lidoderm Patch) 1 each N/A DAILY@2100 [facility] Stop: 01/24/22 20:59 Nitroglycerin (Nitroglycerin 2% Ointment 30gm Tube) 2 inch EXT Q6H SHERLYN Stop: 01/24/22 15:14 Last Admin: 12/25/21 15:25 Dose: 2 inch ECG Additional Comments: Poor data quality, interpretation may be adversely affected Sinus tachycardia with occasional Premature ventricular complexes Otherwise normal ECG When compared with ECG of 02-MAR-2021 17:53, Premature ventricular complexes are now Present Code Status & VTE Plan Code Status CODE: FULL VTE: SCDS, LOVENOX 40mg subq daily Supervising Physician Co-Signing Physician Notes Attending Attestation & Admission Note: Pt seen/examined, chart reviewed, care plan d/w MASTER Callaway. I agree w/ the [place] components of his documentation. Pleasant 86yo male with h/o COPD, known RUL lung mass, PAD, h/o ICH, CKD stage 3 - presented with severe dyspnea and respiratory distress starting acutely about 1000am this morning. Patient denied any aspiration or dysphagia with breakfast. No chest pain. Pt's 2 daughters were at bedside during my assessment and they state they saw their father yesterday and he did not have LE edema then. No recent high-salt containing foods. Upon ER presentation today he was in significant distress with severely high SBP of about 250. He required BIPAP, multiple meds for his BP, bronchodilators, and other supportive care measures. By the time of my assessment his distress was resolved, he was talking in full sentences (with BIPAP still in place), SBP was 130s, and his only complaint was that of right upper back pain. The latter pain has been present on a daily basis since early 2021. PMH/PSH/allergies/meds/sochx/famhx - reviewed VS reviewed afebrile gen - thin, no distress, BIPAP in place neck - no obvious JVD heart - RRR, s1 s2 lungs - decreased BS right base, otherwise CTA b/l, no rales, no wheeze abd - mildly distended, BS+, NT ext - 1-2+ edema b/l, right leg modestly worse than left leg back - no obvious deformity labs reviewed imaging reviewed EKG without ST changes A/P: 1. acute hypoxic resp failure - 2nd to acute pulmonary edema? ACS? COPD exacerbation? combo? CTA chest without edema or infiltrates but flash pulmonary edema in the setting of malignant HTN still possible. ER attending documented b/l wheezing so COPD flare also suspected. Agree with diuresis, bronchodilators. Received IV steroids in ER - would continue. Wean BIPAP off. Echo. 2. right back pain - 2nd to rib destruction from presumed lung cancer. Pain meds. Oncology consultation. Pursue biopsy? Rad onc consult for palliative XRT for pain control? 3. presumed lung cancer 4. accelerated HTN / malignant HTN - improved with Rx of #1. Cont home meds. Adjust as needed. Other plans per Mr Callaway's documentation. Dalton Huang MD PG Care Time/CCT Total # of Minutes Spent Total Time Spent with Patient: Total time spent is greater than 50% in coordination of care (as documented) at patient's floor/unit and/or counseling patient: [id number]: 45 minutes of critical care time was spent in direct care, management and follow up of patient respiratory status, blood pressure acute treatment and pain control. Time was also spent discussing patient case and history with family and reviewing previous records and imaging. Coding Level of Care Code None Diagnoses Hypoxia R09.02 Elevated troponin R77.8 Lung nodule R91.1 Seizure prophylaxis Z29.8 HTN (hypertension) I10 COPD with emphysema J43.9 Peripheral arterial disease I73.9 Impaired fasting glucose R73.01 Chronic kidney disease, stage III (moderate) N18.3 Hypercholesterolemia E78.00 Leukocytosis D72.829 Retinal detachment H33.20
[2021-12-25] MEDS: LIDOCAINE 5% 1 PATCH TD SCH (18:20)
[2021-12-25] MEDS ORDERED: MoRPHine SULFATE 2 MG/ML CARP IV STA (18:22)
--- NOTE | 2021-12-25 18:52 | Ultrasound Report ---
US venous doppler LE RT CLINICAL HISTORY: Right lower extremity edema COMPARISON: None available at the time of this dictation. TECHNIQUE: Right lower extremity real-time compression venous ultrasound with Color Doppler imaging. Utilizing real-time ultrasonic imaging multiple real time high-resolution ultrasonic images with comp ression and noncompression maneuvers of the deep venous system in addition to color doppler imaging w ere performed from the common femoral vein through the proximal calf veins. FINDINGS: Currently there is normal compressibility of the deep venous system from the common femoral vein thro ugh the proximal calf veins. No current evidence of acute thrombosis is identified. Impression: 1. No evidence of deep venous thrombus. ACT 112: Negative or not required by law. Electronically signed by: Terry Mccoy M.D. 12/25/2021 6:49 PM
[2021-12-25] MEDS ORDERED: ONDANSETRON INJ 2 MG/ML 2 ML VIAL IV PRN (20:11)
[2021-12-25] MEDS ORDERED: LABETALOL HCL IV 5 MG/ML 20ML IV PRN (20:11)
[2021-12-25] MEDS ORDERED: LORATADINE 10 MG TAB PO PRN (20:36)
[2021-12-25] MEDS ORDERED: ACETAMINOPHEN 325 MG TAB PO PRN (20:36)
[2021-12-25] MEDS ORDERED: cloNIDine HCL 0.1 MG TAB PO SCH (21:00)
[2021-12-25] MEDS: PRAVASTATIN SOD 40 MG TAB PO SCH (21:12)
[2021-12-25] MEDS: levETIRAcetam 500 MG TAB PO SCH (21:12)
[2021-12-25] MEDS: HYDROCODONE/ACETAMOPHEN 5/325MG TAB PO PRN (21:21)
[2021-12-25] MEDS ORDERED: ALBUTEROL 0.083% NEBU SOLN 3 ML VIAL NEB PRN (21:52)
[2021-12-25] MEDS: MoRPHine SULFATE 2 MG/ML CARP IV PRN (22:20)
[2021-12-25] MEDS ORDERED: ALBUTEROL 0.083% NEBU SOLN 3 ML VIAL NEB SCH (23:00)
[2021-12-25] MEDS: COMBIGAN: ORDER AWAITING ACTION SCH (23:48)
[2021-12-26 05:50] LABS: Basophils # (auto) 0.02 K/uL (0-0.2); Basophils % (auto) 0.1 %; Eosinophils % (auto) 2.7 %; Hematocrit (blood only) 38.7 % (40.1-51.0); Hemoglobin 12.8 g/dl (14.0-18.0); Immature Granulocytes # (auto) 0.15 K/uL (0.00-0.02); Lymphocytes # (auto) 1.19 K/uL (1.2-3.4); Lymphocytes % (auto) 8.1 %; Mean Corpuscular Hemoglobin 31.2 pg (25.0-34.0); Mean Corpuscular Hgb Conc 33.1 g/dL (32.0-36.0); Mean Corpuscular Volume 94.4 fL (80.0-100.0); Mean Platelet Volume 9.8 fL (9.4-12.4); Monocytes # (auto) 1.15 K/uL (0.24-0.82); Monocytes % (auto) 7.8 %; Neutrophils % (auto) 80.3 %; Platelet Count 249 K/uL (130-400); RDW Coefficient of Variation 13.5 % (11.5-14.5); RDW Standard Deviation 46.2 fL (36.4-46.3); White Blood Count 14.71 K/ul (4.8-10.8)
[2021-12-26] MEDS: MoRPHine SULFATE 2 MG/ML CARP IV PRN (06:02)
[2021-12-26 06:17] LABS: Calcium 9.5 mg/dl (8.5-10.1); Est GFR (Non-African American) 52.6 ml/min; Magnesium 1.9 mg/dl (1.7-2.4); Potassium 4.3 mmol/L (3.5-5.1)
[2021-12-26 06:31] LABS: Troponin I High Sensitivity 191.8 pg/ml (0-20)
[2021-12-26] MEDS: cloNIDine HCL 0.1 MG TAB PO SCH ×3 (08:24→20:35)
[2021-12-26] MEDS: HYDROCODONE/ACETAMOPHEN 5/325MG TAB PO PRN (08:24)
[2021-12-26] MEDS: COMBIGAN: ORDER AWAITING ACTION SCH ×3 (08:25→23:19)
[2021-12-26] MEDS: levETIRAcetam 500 MG TAB PO SCH ×2 (08:25→20:35)
[2021-12-26] MEDS: ENOXAPARIN INJ 40 MG/0.4 ML SYR SQ SCH (08:25)
--- NOTE | 2021-12-26 09:14 | Electrocardiogram Report ---
Test Reason : Blood Pressure : / mmHG Vent. Rate : 142 BPM Atrial Rate : 142 BPM P-R Int : 154 ms QRS Dur : 080 ms QT Int : 330 ms P-R-T Axes : 030 066 049 degrees QTc Int : 507 ms Poor data quality, interpretation may be adversely affected Sinus tachycardia with occasional Premature ventricular complexes Otherwise normal ECG When compared with ECG of 02-MAR-2021 17:53, Premature ventricular complexes are now Present Confirmed by Allan Zhou ([id number]) on 12/26/2021 9:13:35 AM Referred By: Confirmed By:Allan Zhou
[2021-12-26] MEDS: ASPIRIN 81 MG ECTAB PO SCH (09:25)
[2021-12-26] MEDS: LIDOCAINE 5% 1 PATCH TD SCH (09:25)
--- NOTE | 2021-12-26 09:25 | Electrocardiogram Report ---
Test Reason : Blood Pressure : / mmHG Vent. Rate : 083 BPM Atrial Rate : 083 BPM P-R Int : 154 ms QRS Dur : 072 ms QT Int : 364 ms P-R-T Axes : -16 035 058 degrees QTc Int : 427 ms Poor data quality, interpretation may be adversely affected Sinus rhythm Septal infarct , age undetermined Abnormal ECG When compared with ECG of 25-DEC-2021 14:53, (unconfirmed) Premature ventricular complexes are no longer Present Vent. rate has decreased BY 59 BPM Confirmed by Allan Zhou ([id number]) on 12/26/2021 9:25:21 AM Referred By: REFERRED SELF Confirmed By:Allan Zhou
[2021-12-26] MEDS: PANTOprazole 40 MG TAB PO SCH (09:26)
--- NOTE | 2021-12-26 09:34 | Electrocardiogram Report ---
Test Reason : Blood Pressure : / mmHG Vent. Rate : 094 BPM Atrial Rate : 094 BPM P-R Int : 148 ms QRS Dur : 072 ms QT Int : 352 ms P-R-T Axes : -02 024 051 degrees QTc Int : 440 ms Poor data quality, interpretation may be adversely affected Normal sinus rhythm with sinus arrhythmia Normal ECG When compared with ECG of 25-DEC-2021 22:27, (unconfirmed) No significant change Confirmed by Allan Zhou ([id number]) on 12/26/2021 9:33:47 AM Referred By: REFERRED SELF Confirmed By:Allan Zhou
--- NOTE | 2021-12-26 10:10 | XCELERA ---
[id number]
[2021-12-26] MEDS ORDERED: IPRATROPIUM BROMIDE NEB SOLN 0.02% 2.5 ML VIAL NEB PRN (12:05)
[2021-12-26] MEDS ORDERED: traMADol HCL 50 MG TABLET PO PRN (12:11)
[2021-12-26] MEDS: dilTIAZem HCl 60 MG TAB PO SCH ×2 (13:14→16:52)
--- NOTE | 2021-12-26 14:08 | Electrocardiogram Report ---
Test Reason : Blood Pressure : / mmHG Vent. Rate : 111 BPM Atrial Rate : 111 BPM P-R Int : 152 ms QRS Dur : 082 ms QT Int : 334 ms P-R-T Axes : -18 049 065 degrees QTc Int : 454 ms Sinus tachycardia Otherwise normal ECG When compared with ECG of 26-DEC-2021 06:06, No significant change was found Confirmed by Allan Zhou ([id number]) on 12/26/2021 2:07:59 PM Referred By: REFERRED SELF Confirmed By:Allan Zhou
[2021-12-26] MEDS ORDERED: amLODIPine BESYLATE 5 MG TAB PO SCH (16:30)
[2021-12-26] MEDS: allopurinoL 100 MG TAB PO SCH (16:52)
[2021-12-26] MEDS: oxyCODONE HCL IR 5 MG TAB (IMMEDIATE RELEASE) PO PRN (16:55)
--- NOTE | 2021-12-26 18:54 | Hospitalist Progress Note ---
Date of Service December 26, 2021 Assessment & Plan (1) Respiratory failure with hypoxia: Plan: Acute hypoxic respiratory failuresomewhat unclear etiology; agree with admission note that does not seem like renaldo COPD exacerbation; seems overall better; continue scheduled bronchodilation but switch to Atrovent given tendency to tachycardia; currently weaned down to 2 L oxygen; hold off systemic steroids but low threshold to start (2) Elevated troponin: Plan: No angina; likely type II NSTEMIdemand ischemia; continue aspirin, continue statin; Echo shows well-preserved ejection fraction and hyperdynamic LV; switched to Cardizem (3) Lung cancer: Plan: Likely squamous cell given hypercalcemiaoncology consulted; pain control; (4) Seizure prophylaxis: Plan: 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 - continue keppra 500mg PO BID (5) HTN (hypertension): Plan: Switch to short acting Cardizemuptitrate (6) COPD with emphysema: Plan: Uncertain how well validated; continue scheduled ipratropium; added Breo (7) Peripheral arterial disease: Plan: No acute needs, pulses remain palpable with warm feet bilaterally - continue aspirin and statin - swelling greater on right side - surgical side- negative for DVT via venous duplex study (8) Chronic kidney disease, stage III (moderate): Plan: Stable without acute worsening - follow - avoid further nephrotoxic medications (9) Hypercholesterolemia: Plan: Continue statin (10) Leukocytosis: Plan: May be leukemoid type of reaction or steroid effect; cultures and follow; hold off antibiotics (11) 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 continue with his home eye drops (12) Hypercalcemia: Plan: Likely paraneoplasticnot excessively elevatedfollow Admission and Anticipated Discharge Date Admission Date: December 25, 2021 Subjective Follow-up of presentation with shortness of breathcontinues to be hypoxic; overall better Physical Exam Physical Exam: Constitutional and general: No acute distress, looks biologic age Head and face: No puffiness, atraumatic Eyes: No scleral icterus, extraocular movements normal Neck: Supple, no JVD Musculoskeletal: No acute joint swelling, no bony abnormalities Skin/dermatologic/integument: No rash, no purpura Hematologic and lymphatic: pallor +, no petechia Gastrointestinal/abdomen: Nondistended, soft, nonacute Neurologic: Cranial nerves intact, nonfocal Psychiatry: Awake, alert, pleasant, communicative Cardiovascular: Heart rhythm regular, no rub, no murmur, no gallop Respiratory: Chest movements equal, no use of accessory muscles, mild wheezing; decreased breath sounds Extremities: No edema, no cyanosis Results & Data Results & Data ([facility]) Vital Signs (Past 12 Hours) Vital Signs Temp Pulse Resp BP BP Pulse Ox O2 Del Method 12/26/21 15:37 37.1 C 97 H 19 177/71 H 94 Nasal Cannula 12/26/21 08:00 Nasal Cannula 12/26/21 08:13 37.9 C H 97 H 18 202/80 H 180/80 H 94 Nasal Cannula O2 Flow Rate 12/26/21 15:37 2 12/26/21 08:00 4 12/26/21 08:13 2.0 Laboratory Results Laboratory Results - last 24 hr 12/25/21 12/26/21 12/26/21 18:10 00:41 05:34 WBC 14.71 H RBC 4.10 L Hgb 12.8 L Hct 38.7 L MCV 94.4 MCH 31.2 MCHC 33.1 RDW Std Deviation 46.2 RDW Coeff of Pepe 13.5 Plt Count 249 MPV 9.8 Immature Gran % (Auto) 1.0 Neut % (Auto) 80.3 Lymph % (Auto) 8.1 [place] % (Auto) 7.8 Eos % (Auto) 2.7 Baso % (Auto) 0.1 Neut # (Auto) 11.80 H Lymph # (Auto) 1.19 L [place] # (Auto) 1.15 H Eos # (Auto) 0.40 Baso # (Auto) 0.02 Immature Gran # (Auto) 0.15 H Sodium Potassium Chloride Carbon Dioxide Anion Gap BUN Creatinine Est Cr Clr Drug Dosing Est GFR ( Amer) Est GFR (Non-Af Amer) BUN/Creatinine Ratio Glucose Calcium Magnesium Troponin I High Sens 165.6 H* D 226.5 H* D 12/26/21 05:34 WBC RBC Hgb Hct MCV MCH MCHC RDW Std Deviation RDW Coeff of Pepe Plt Count MPV Immature Gran % (Auto) Neut % (Auto) Lymph % (Auto) [place] % (Auto) Eos % (Auto) Baso % (Auto) Neut # (Auto) Lymph # (Auto) [place] # (Auto) Eos # (Auto) Baso # (Auto) Immature Gran # (Auto) Sodium 136 Potassium 4.3 Chloride 98 Carbon Dioxide 30 Anion Gap 8 BUN 28 H Creatinine 1.22 Est Cr Clr Drug Dosing 36.0 Est GFR ( Amer) 61.0 Est GFR (Non-Af Amer) 52.6 BUN/Creatinine Ratio 23.0 H Glucose 87 Calcium 9.5 Magnesium 1.9 Troponin I High Sens 191.8 H* PG Care Time/CCT Total # of Minutes Spent Total Time Spent with Patient: Total time spent is greater than 50% in coordination of care (as documented) at patient's floor/unit and/or counseling patient: Coding Level of Care Code 69552 Subseq Hosp Care Lvl 3 Diagnoses Respiratory failure with hypoxia J96.91 Elevated troponin R77.8 Lung cancer C34.90 Seizure prophylaxis Z29.8 HTN (hypertension) I10 COPD with emphysema J43.9 Peripheral arterial disease I73.9 Chronic kidney disease, stage III (moderate) N18.3 Hypercholesterolemia E78.00 Leukocytosis D72.829 Retinal detachment H33.20 Hypercalcemia E83.52
[2021-12-26] MEDS ORDERED: bisacodyL 10 MG SUPP PR PRN (19:06)
[2021-12-26] MEDS: IPRATROPIUM BROMIDE NEB SOLN 0.02% 2.5 ML VIAL NEB SCH (19:37)
[2021-12-26] MEDS: PRAVASTATIN SOD 40 MG TAB PO SCH (20:34)
[2021-12-26] MEDS: FLUTICASONE/VILANTEROL 200/25MCG 14 PUFFS/INHALER INH SCH (20:34)
[2021-12-27] MEDS: IPRATROPIUM BROMIDE NEB SOLN 0.02% 2.5 ML VIAL NEB SCH ×4 (00:07→19:36)
[2021-12-27] MEDS: dilTIAZem HCl 60 MG TAB PO SCH ×5 (01:01→20:30)
[2021-12-27] MEDS: oxyCODONE HCL IR 5 MG TAB (IMMEDIATE RELEASE) PO PRN (06:08)
[2021-12-27 06:34] LABS: Basophils # (auto) 0.01 K/uL (0-0.2); Basophils % (auto) 0.1 %; Eosinophils # (auto) 0.33 K/uL (0-0.50); Eosinophils % (auto) 2.8 %; Hematocrit (blood only) 35.1 % (40.1-51.0); Hemoglobin 11.5 g/dl (14.0-18.0); Immature Granulocytes # (auto) 0.08 K/uL (0.00-0.02); Immature Granulocytes % (auto) 0.7 %; Lymphocytes # (auto) 0.64 K/uL (1.2-3.4); Lymphocytes % (auto) 5.3 %; Mean Corpuscular Hemoglobin 31.7 pg (25.0-34.0); Mean Corpuscular Hgb Conc 32.8 g/dL (32.0-36.0); Mean Corpuscular Volume 96.7 fL (80.0-100.0); Monocytes # (auto) 1.01 K/uL (0.24-0.82); Monocytes % (auto) 8.4 %; Neutrophils # (auto) 9.92 K/uL (1.4-6.5); Neutrophils % (auto) 82.7 %; Platelet Count 222 K/uL (130-400); RDW Coefficient of Variation 13.5 % (11.5-14.5); RDW Standard Deviation 48.1 fL (36.4-46.3); Red Blood Count 3.63 M/uL (4.63-6.08); White Blood Count 11.99 K/ul (4.8-10.8)
[2021-12-27 07:04] LABS: Albumin Globulin Ratio 1.2 (0.9-2); Bilirubin,Total 0.7 mg/dl (0.2-1.0); Calcium 9.4 mg/dl (8.5-10.1); Creatinine Clr Calc Pharmacy 31.4 ml/min; Est GFR (African American) 51.6 ml/min; Est GFR (Non-African American) 44.5 ml/min; Globulin 2.6 gm/dl (2.5-4.0); Magnesium 1.9 mg/dl (1.7-2.4); Phosphorus 2.3 mg/dl (2.5-4.9); Potassium 3.8 mmol/L (3.5-5.1); Total Protein 5.6 gm/dl (6.0-8.3)
[2021-12-27] MEDS: ASPIRIN 81 MG ECTAB PO SCH (07:55)
[2021-12-27] MEDS: levETIRAcetam 500 MG TAB PO SCH ×2 (07:55→20:31)
[2021-12-27] MEDS: PANTOprazole 40 MG TAB PO SCH (07:55)
[2021-12-27] MEDS: ENOXAPARIN INJ 40 MG/0.4 ML SYR SQ SCH (07:55)
[2021-12-27] MEDS: cloNIDine HCL 0.1 MG TAB PO SCH ×2 (07:56→20:31)
[2021-12-27] MEDS: COMBIGAN: ORDER AWAITING ACTION SCH ×2 (07:56→16:13)
[2021-12-27] MEDS: FLUTICASONE/VILANTEROL 200/25MCG 14 PUFFS/INHALER INH SCH (07:57)
[2021-12-27] MEDS: POLYETHYLENE (MIRALAX) 17 GM PACK PO SCH (07:57)
[2021-12-27] MEDS: LIDOCAINE 5% 1 PATCH TD SCH (07:57)
--- NOTE | 2021-12-27 14:14 | Gastrointestinal Consultation ---
Date of Consultation December 27, 2021 Assessment & Plan (1) Respiratory failure with hypoxia: 86 year old male with history of emphysema, intraparenchymal hemorrhage, seizure disorder head/neck cancer s/p radiation, right hip replacement, lung mass concerning for malignancy - admitted w/ acute respiratory failure. GI asked to evaluate for food impaction which he notes has passed with emesis and he is now pain free, tolerating secretions. DDX: ring vs stricture vs stenosis as he does note history of radiation therapy for hx or oropharyngeal CA His respiratory status has symptomatically improved No GI contraindication to clear liquids today NPO after midnight IV PPI BID Tentative EGD Sunday pending respiratory status Supervising Physician Co-Signing Physician Notes I performed a history and physical examination of the patient today, including specifically on physical exam - soft abdomen. I have discussed the patient's management with the advanced practitioner. Please refer to the nurse practitioner's note for the documented findings and plan of care. No signs of obstruction now. EGD tomorrow. History of Present Illness Reason for Consultation: food impaction Requesting Physician: Fredrick Attending Physician: Naeem Alcala MD History of Present Illness 86 year old male with history of emphysema, intraparenchymal hemorrhage, seizure disorder head/neck cancer s/p radiation, right hip replacement, lung mass concerning for malignancy presenting to the ED w/ difficulty breathing, tachycardia, hypertensive - admitted w/ acute respiratory failure. GI was asked to evaluate for food impaction. Pt was seen and evaluated, chart reviewed. He notes this AM eating toast/eggs, felt food stick. Was uncomfortable, dryheaving, regurgitation and emesis with reported passage of impaction. Made NPO excepy meds, presenting feeling well. Notes that he tolerated medication wiht sip of water. Denies any foreign body sensation. No pain, nausea, vomiting or GERD. Toleratinf secretions. Suggests dysphagia started about 4-6 weeks ago, has been daily. Notes he has difficultly chewing his food as he does not have any teeth. Had EGD x 3 for food impaction 20+ years ago, last in [address] Dawson. Allergies Allergy/AdvReac Type Severity Reaction Status Date / Time baclofen Allergy Unknown Unknown Verified 11/22/21 13:26 carvedilol Allergy Unknown Unknown Verified 11/22/21 13:26 clozapine Allergy Unknown unknown Verified 11/22/21 13:26 haloperidol Allergy Unknown unknown Verified 11/22/21 13:26 metoclopramide Allergy Unknown Unknown Verified 11/22/21 13:26 Phenothiazines Allergy Unknown unkonwn Verified 11/22/21 13:26 Home Medications Medication Instructions Recorded Confirmed Type multivitamin 1 tab PO QAM 02/11/18 11/22/21 History brimonidine 0.2 %-timolol 0.5 % 1 drops ophthalmic (eye) BID 11/12/18 11/22/21 History eye drops (Combigan) loratadine 10 mg tablet (Claritin) 10 mg PO DAILY PRN Allergy Symptoms 06/11/20 11/22/21 History psyllium husk 3.4 gram/5.4 gram 1 tbsp PO QAM 06/11/20 11/22/21 History oral powder (Metamucil) acetaminophen 325 mg capsule 650 mg PO Q4H PRN pain #100 caps 12/24/20 11/22/21 Rx aspirin 81 mg tablet,delayed 81 mg PO QAM 08/04/21 11/22/21 History release allopurinol 100 mg tablet 100 mg PO QDD #90 tabs 08/15/21 11/22/21 Rx omeprazole 20 mg capsule,delayed 20 mg PO QAM #90 caps 08/15/21 11/22/21 Rx release pravastatin 80 mg tablet 80 mg PO HS #90 tabs 08/15/21 11/22/21 Rx amlodipine 5 mg tablet 5 mg PO QDD #90 tabs 08/22/21 11/22/21 Rx levetiracetam 500 mg tablet 500 mg PO BID #60 tabs 09/16/21 11/22/21 Rx (Keppra) clonidine HCl 0.2 mg tablet See Rx Instructions PO HS #180 tabs 10/07/21 11/22/21 Rx hydrocodone 5 mg-acetaminophen 325 1 tab PO TID PRN pain #90 tabs 11/29/21 Rx mg tablet prednisone 10 mg tablets in a dose See Rx Instructions .Route 11/29/21 Rx pack .COMPLEX #42 ea Patient History Medical History (Updated 12/27/21 @ 18:15 by Naeem Alcala MD) Acid reflux TEMO (acute kidney injury) Benign prostatic hypertrophy Chronic kidney disease, stage III (moderate) no specialist per pt COPD with emphysema pt 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 Glaucoma Gouty arthritis prednisone taper 07/19/2021 by PCP for suspected gout, persistent discoloration and pain of toes-abnormal CTA with upcoming vascular surgery History of anesthesia reaction was confused, felt like his bed was on the wall, the clock was on the floor, after approx half hr, resolved History of blood transfusion 2009 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 [facility] complete Hypercholesterolemia Hypertension Impaired fasting glucose 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, fall in setting of seizure activity, HTN; follows with [facility] neuro d/c from neurosurgery: monitoring f/u imaging to further rule out vascular malformations and "aid in diagnosis of CAA should there be progression of micro-hemorrhages" Lumbar spinal stenosis Lung nodule Peripheral vascular disease Pulmonary hypertension mild 2018 echo Pulmonary nodule to have biopsy through [facility] IR 03/2021, not yet completed per records Retinal detachment Sacroiliitis Sciatica of left side gets steroid injections Seizure 03/02/2021, fall in setting of seizure activity, HTN; follows with [facility] neuro d/c from neurosurgery: monitoring f/u imaging to further rule out vascular malformations and "aid in diagnosis of CAA should there be progression of micro-hemorrhages" Skin lesion of left ear 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 Post-op anest hesia progress note: "...was hypertensive on arrival to PACU so was treated with labetalol. He remains hypertensive but his blood pressure is lower than it was at his preoperative baseline. His other vital signs are stable." H/O aorto-femoral bypass (~2009) [address] Alfaro H/O transurethral resection of prostate History of colonoscopy History of esophagogastroduodenoscopy (EGD) with dilation Hx of non-cataract eye surgery left eye x3 for retina issues Loss of teeth due to extraction Status post aortic bifurcation bypass graft History of Bypass Graft (Non-Vein) Aortic-bifemoral > 2009 > [facility] Status post appendectomy Status post cataract surgery bilat Status post tonsillectomy and adenoidectomy Family History Sister Breast cancer Diabetes Father Parkinsons disease Prostate cancer Mother Diabetes Denies family history of Ovarian cancer Myocardial infarction Lung cancer Colorectal cancer Social History Smoking Status: Former smoker Tobacco Type: Cigarettes Age Started Using Tobacco: 14; Age Quit Using Tobacco: 64; packs per day: 1; Second Hand Exposure: No; Hx Alcohol Use: No Hx Substance Use: No Preferred Language: Luxembourgish Communication Ability: Effective Visual Impairment: Limited Hearing Ability: Normal Potato Chip 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 Required: No Beliefs That Will Affect Care: None marital status: / Current Living Situation: Alone Current Living Situation Comment: Lives in own home and can live on one floor current occupational status: retired How many Children do You have: 4 Other Information That Helps Us Care for You: No Feels Safe at Home: Yes Safety Concerns: Feels Safe At This Time Childhood Exposure to Second-Hand Smoke: No caffeine: Yes Dental Care, Regularly: No Physical Activity Frequency: 5-6 Times per Week Seatbelt Use: always Sunscreen Use: No Assistive Devices: Hospital Bed, Scooter/Electric Scooter, Stair Lift, Walker and Wheelchair Review of Systems Review of Systems: All systems reviewed & are unremarkable except as noted in HPI & below Physical Exam Constitutional: WD/WN, vitals as above Neck: trachea midline Respiratory: wearing O2. No respiratory distress. Decreased breath sounds at bases Gastrointestinal (Abdomen): normal bowel sounds, soft, nontender, no hepatosplenomegaly Skin: no rashes, warm and dry Results & Data ([facility]) Vital Signs (Past 12 Hours) Vital Signs Temp Pulse Resp BP Pulse Ox O2 Del Method O2 Flow Rate 12/27/21 13:12 101 H 20 81 L Room Air 12/27/21 11:17 36.8 C 90 19 129/67 94 Nasal Cannula 2 12/27/21 08:00 Room Air 12/27/21 08:20 36.7 C 131 H 20 126/78 91 Nasal Cannula 2 12/27/21 07:15 96 H 18 87 L Nasal Cannula 1 12/27/21 04:42 36.6 C 96 H 18 156/76 H 92 Nasal Cannula 1.0 Laboratory Results 12/27/21 12/27/21 12/27/21 Range/Units 06:17 06:17 06:17 WBC 11.99 H (4.8-10.8) K/ul RBC 3.63 L (4.63-6.08) M/uL Hgb 11.5 L (14.0-18.0) g/dl Hct 35.1 L (40.1-51.0) % MCV 96.7 (80.0-100.0) fL MCH 31.7 (25.0-34.0) pg MCHC 32.8 (32.0-36.0) g/dL RDW Std Deviation 48.1 H (36.4-46.3) fL RDW Coeff of Pepe 13.5 (11.5-14.5) % Plt Count 222 (130-400) K/uL MPV 10.0 (9.4-12.4) fL Immature Gran % (Auto) 0.7 % Neut % (Auto) 82.7 % Lymph % (Auto) 5.3 % [place] % (Auto) 8.4 % Eos % (Auto) 2.8 % Baso % (Auto) 0.1 % Neut # (Auto) 9.92 H (1.4-6.5) K/uL Lymph # (Auto) 0.64 L (1.2-3.4) K/uL [place] # (Auto) 1.01 H (0.24-0.82) K/uL Eos # (Auto) 0.33 (0-0.50) K/uL Baso # (Auto) 0.01 (0-0.2) K/uL Immature Gran # (Auto) 0.08 H (0.00-0.02) K/uL Sodium 137 (136-145) mmol/L Potassium 3.8 (3.5-5.1) mmol/L Chloride 100 (98-107) mmol/L Carbon Dioxide 28 (21-32) mmol/L Anion Gap 9 (3-11) BUN 26 H (6-23) mg/dl Creatinine 1.40 (0.6-1.4) mg/dl Est Cr Clr Drug Dosing 31.4 ml/min Est GFR ( Amer) 51.6 ml/min Est GFR (Non-Af Amer) 44.5 ml/min Fasting Glucose 106 H (70-99) mg/dl Calcium 9.4 (8.5-10.1) mg/dl Phosphorus 2.3 L (2.5-4.9) mg/dl Magnesium 1.9 (1.7-2.4) mg/dl Total Bilirubin 0.7 (0.2-1.0) mg/dl AST 16 (13-39) U/L ALT 16 (7-52) U/L Alkaline Phosphatase 54 (34-104) U/L B-Natriuretic Peptide 344 H (0-100) pg/ml Total Protein 5.6 L D (6.0-8.3) gm/dl Albumin 3.0 L (3.4-5.0) gm/dl Globulin 2.6 (2.5-4.0) gm/dl Albumin/Globulin Ratio 1.2 (0.9-2)
[2021-12-27] MEDS: allopurinoL 100 MG TAB PO SCH (16:13)
--- NOTE | 2021-12-27 18:17 | Hospitalist Progress Note ---
Date of Service December 27, 2021 Assessment & Plan (1) Respiratory failure with hypoxia: Plan: Acute hypoxic respiratory failuresomewhat unclear etiology; agree with admission note that does not seem like renaldo COPD exacerbation; overall better; continue scheduled bronchodilation - switch to Atrovent given tendency to tachycardia; currently weaned down to 2 L oxygen; hold off systemic steroids but low threshold to start Given course residual hypoxia could be related to lung mass; observewill consider pulmonary consult (2) Elevated troponin: Plan: No angina; likely demand ischemia; continue aspirin, continue statin; Echo shows well-preserved ejection fraction and hyperdynamic LV; switched to Cardizem (3) Lung cancer: Plan: Likely squamous cell given hypercalcemiaoncology consulted; pain control; (4) Seizure prophylaxis: Plan: 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 - continue keppra 500mg PO BID (5) HTN (hypertension): Plan: Switched to short acting Cardizemuptitrate as needed; pressures much betteralso on clonidine 0.2 mg twice a day that he took at home with improvement (6) COPD with emphysema: Plan: Uncertain how well validated; continue scheduled ipratropium; added Breo (7) Peripheral arterial disease: Plan: No acute needs, pulses remain palpable with warm feet bilaterally - continue aspirin and statin - swelling greater on right side - surgical side- negative for DVT via venous duplex study (8) Chronic kidney disease, stage III (moderate): Plan: Slightly higher creatinine notedobserve (9) Hypercholesterolemia: Plan: Continue statin (10) Leukocytosis: Plan: May be leukemoid type of reaction or steroid effect; cultures negative to dateWBC count betterobserve (11) 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 continue with his home eye drops (12) Hypercalcemia: Plan: At presentation, likely paraneoplasticwas never excessively elevated; given low phosphate could be PTH related peptide related; at present observe (13) Dysphagia: Plan: Appears esophagealGI consulted Plan Hypophosphatemiaobserve Observe mild anemia Admission and Anticipated Discharge Date Admission Date: December 25, 2021 Subjective Follow-up of presentation with shortness of breathcontinues to be hypoxic but in this regards overall better; blood pressure better; new issue dysphagiahas that remotely in the past and had dilatation Physical Exam Physical Exam: Constitutional and general: No acute distress, looks biologic age Head and face: No puffiness, atraumatic Eyes: No scleral icterus, extraocular movements normal Neck: Supple, no JVD Musculoskeletal: No acute joint swelling, no bony abnormalities Skin/dermatologic/integument: No rash, no purpura Hematologic and lymphatic: pallor +, no petechia Gastrointestinal/abdomen: Nondistended, soft, nonacute Neurologic: Cranial nerves intact, nonfocal Psychiatry: Awake, alert, pleasant, communicative Cardiovascular: Heart rhythm regular, no rub, no murmur, no gallop Respiratory: Chest movements equal, no use of accessory muscles, no wheezing; decreased breath sounds Extremities: No edema, no cyanosis Results & Data Results & Data ([facility]) Vital Signs (Past 12 Hours) Vital Signs Temp Pulse Resp BP Pulse Ox O2 Del Method O2 Flow Rate 12/27/21 15:55 36.9 C 92 H 20 121/64 93 Nasal Cannula 2 12/27/21 13:12 101 H 20 81 L Room Air 12/27/21 11:17 36.8 C 90 19 129/67 94 Nasal Cannula 2 12/27/21 08:00 Room Air 12/27/21 08:20 36.7 C 131 H 20 126/78 91 Nasal Cannula 2 12/27/21 07:15 96 H 18 87 L Nasal Cannula 1 Laboratory Results Laboratory Results - last 24 hr 12/27/21 12/27/21 12/27/21 06:17 06:17 06:17 WBC 11.99 H RBC 3.63 L Hgb 11.5 L Hct 35.1 L MCV 96.7 MCH 31.7 MCHC 32.8 RDW Std Deviation 48.1 H RDW Coeff of Pepe 13.5 Plt Count 222 MPV 10.0 Immature Gran % (Auto) 0.7 Neut % (Auto) 82.7 Lymph % (Auto) 5.3 [place] % (Auto) 8.4 Eos % (Auto) 2.8 Baso % (Auto) 0.1 Neut # (Auto) 9.92 H Lymph # (Auto) 0.64 L [place] # (Auto) 1.01 H Eos # (Auto) 0.33 Baso # (Auto) 0.01 Immature Gran # (Auto) 0.08 H Sodium 137 Potassium 3.8 Chloride 100 Carbon Dioxide 28 Anion Gap 9 BUN 26 H Creatinine 1.40 Est Cr Clr Drug Dosing 31.4 Est GFR ( Amer) 51.6 Est GFR (Non-Af Amer) 44.5 Fasting Glucose 106 H Calcium 9.4 Phosphorus 2.3 L Magnesium 1.9 Total Bilirubin 0.7 AST 16 ALT 16 Alkaline Phosphatase 54 B-Natriuretic Peptide 344 H Total Protein 5.6 L D Albumin 3.0 L Globulin 2.6 Albumin/Globulin Ratio 1.2 PG Care Time/CCT Total # of Minutes Spent Total Time Spent with Patient: Total time spent is greater than 50% in coordination of care (as documented) at patient's floor/unit and/or counseling patient: Coding Level of Care Code 49898 Subseq Hosp Care Lvl 2 Diagnoses Respiratory failure with hypoxia J96.91 Elevated troponin R77.8 Lung cancer C34.90 Seizure prophylaxis Z29.8 HTN (hypertension) I10 COPD with emphysema J43.9 Peripheral arterial disease I73.9 Chronic kidney disease, stage III (moderate) N18.3 Hypercholesterolemia E78.00 Leukocytosis D72.829 Retinal detachment H33.20 Hypercalcemia E83.52 Dysphagia R13.10
[2021-12-27 20:08] LABS: Adenovirus PCR Not Detected (NotDetected); Bordetella parapertussis PCR Not Detected (NotDetected); Bordetella pertussis PCR Not Detected (NotDetected); Chlamydia pneumoniae PCR Not Detected (NotDetected); Coronavirus 229E PCR Not Detected (NotDetected); Coronavirus CoV-2 (COVID19)PCR Not Detected (NotDetected); Coronavirus HKU1 PCR Not Detected (NotDetected); Coronavirus NL63 PCR Not Detected (NotDetected); Coronavirus OC43PCR Not Detected (NotDetected); Human Metapneumovirus PCR Not Detected (NotDetected); Influenza A PCR Not Detected (NotDetected); Influenza B PCR Not Detected (NotDetected); Mycoplasma pneumoniae PCR Not Detected (NotDetected); Parainfluenza Virus 1 PCR Not Detected (NotDetected); Parainfluenza Virus 2 PCR Not Detected (NotDetected); Parainfluenza Virus 3 PCR Not Detected (NotDetected); Parainfluenza Virus 4 PCR Not Detected (NotDetected); Respiratory Syncytial VirusPCR Not Detected (NotDetected); Rhinovirus/Enterovirus PCR Not Detected (NotDetected)
[2021-12-27] MEDS: PRAVASTATIN SOD 40 MG TAB PO SCH (20:32)
[2021-12-27] MEDS ORDERED: IPRATROPIUM BROMIDE NEB SOLN 0.02% 2.5 ML VIAL NEB PRN (21:03)
--- NOTE | 2021-12-28 00:19 | Consultation Report ---
DATE OF SERVICE: 12/27/2021. REASON FOR CONSULTATION: Presumed lung cancer. HISTORY OF PRESENT ILLNESS: Mr. Bliss is an 86-year-old gentleman who presented to the ED on 12/25/2021 with complaints of shortness of breath and was found to be hypoxic, likely due to COPD exacerbation. Imaging studies obtained during his admission including CTA chest to rule out PE on 12/25/2021 revealed no evidence of PE, but revealed increase in size of right upper lobe pulmonary nodule to 5.2 cm concerning for lung cancer. Of note, the patient had been worked up in the past for lung cancer and actually had a PET/CT obtained back in February 2021 which revealed 1.3 cm spiculated right upper lobe pulmonary nodule. At that time, he was referred to radiation oncology and was evaluated by Dr. Garcia, who recommended IR-guided biopsy followed possibly by stereotactic radiation treatment. The patient, however, states that he never followed up with IR-guided biopsy as he was hospitalized multiple times for fractures. During my evaluation of him today, he denies significant weight loss. Complains of shortness of breath. Denies significant cough or hemoptysis. PAST MEDICAL HISTORY: 1. BPH. 2. CKD stage III. 3. COPD. 4. Gout. 5. Hypercholesterolemia. 6. Hypertension. 7. History of intraparenchymal hemorrhage of the brain. 8. Presumed lung cancer. PAST SURGICAL HISTORY: 1. History of aortofemoral bypass. 2. Transurethral resection of prostate. 3. Tonsillectomy and adenoidectomy. 4. Right hip fracture, status post repair. HOME MEDICATIONS: 1. Multivitamins 1 mg p.o. daily. 2. Loratadine 10 mg p.o. daily p.r.n. 3. Tylenol 650 mg p.o. q. 4 hours. 4. Aspirin 81 mg p.o. every day. 5. Allopurinol 100 mg p.o. every day. 6. Omeprazole 20 mg p.o. every day. 7. Pravastatin 80 mg p.o. at bedtime. 8. Amlodipine 5 mg p.o. every day. 9. Keppra 500 mg p.o. b.i.d. 10. Clonidine 0.2 mg p.o. ALLERGIES: 1. BACLOFEN. 2. CARVEDILOL. 3. CLOZAPINE. 4. HALDOL. 5. METOCLOPRAMIDE. 6. PHENOTHIAZINES. FAMILY HISTORY: Noncontributory. SOCIAL HISTORY: Endorses more than [id number] history of smoking. Quit smoking. Denies alcohol and illicit drug use. REVIEW OF SYSTEMS: Unremarkable except as noted above. PHYSICAL EXAMINATION: Essentially unremarkable. IMAGING STUDIES: As noted above. ASSESSMENT AND PLAN: 1. Right upper lobe lung mass, likely secondary to primary lung malignancy. A pleasant elderly gentleman with history of right upper lobe nodule, initially diagnosed last year for which PET/CT also obtained late last year had revealed FDG-avid lesion suspicious for primary lung cancer. The patient was supposed to have IR-guided biopsy at [facility], but missed several appointments and more recently presented to the ER with shortness of breath due to chronic obstructive pulmonary disease exacerbation for which CT chest was obtained, which revealed increase in size of lung mass to 5.2 cm. Discussed my thoughts with the patient and his daughter. I explained to them that I would recommend restaging imaging with PET/CT upon discharge from hospital. Recommend obtaining brain MRI as well as CT abdomen and pelvis and bone scan while he is in the hospital to rule out distant metastatic disease. If he has no evidence of distant metastatic disease, he would benefit from evaluation by radiation oncology to see if he would still be a candidate for stereotactic radiation given his advanced age. If he, however, has metastatic disease, he would need a formal biopsy at that point to assess for PD-L1 status and eligibility for possible single agent Keytruda. Thank you for this consult. Oncology will see the patient upon discharge from hospital. Please feel free to call if you have any further questions. Job ID: [id number] MIGUEL
[2021-12-28] MEDS: COMBIGAN: ORDER AWAITING ACTION SCH (01:03)
[2021-12-28 06:40] LABS: Basophils # (auto) 0.01 K/uL (0-0.2); Basophils % (auto) 0.1 %; Eosinophils # (auto) 0.19 K/uL (0-0.50); Eosinophils % (auto) 1.5 %; Hematocrit (blood only) 29.4 % (40.1-51.0); Hemoglobin 9.7 g/dl (14.0-18.0); Immature Granulocytes # (auto) 0.07 K/uL (0.00-0.02); Immature Granulocytes % (auto) 0.5 %; Lymphocytes # (auto) 0.59 K/uL (1.2-3.4); Lymphocytes % (auto) 4.5 %; Mean Corpuscular Hemoglobin 31.6 pg (25.0-34.0); Mean Corpuscular Volume 95.8 fL (80.0-100.0); Mean Platelet Volume 10.2 fL (9.4-12.4); Monocytes # (auto) 1.15 K/uL (0.24-0.82); Monocytes % (auto) 8.8 %; Neutrophils # (auto) 11.07 K/uL (1.4-6.5); Neutrophils % (auto) 84.6 %; Platelet Count 210 K/uL (130-400); RDW Coefficient of Variation 13.2 % (11.5-14.5); RDW Standard Deviation 46.2 fL (36.4-46.3); Red Blood Count 3.07 M/uL (4.63-6.08); White Blood Count 13.08 K/ul (4.8-10.8)
[2021-12-28 07:05] LABS: Albumin Level 2.6 gm/dl (3.4-5.0); Bilirubin,Total 0.7 mg/dl (0.2-1.0); Est GFR (African American) 62.2 ml/min; Est GFR (Non-African American) 53.7 ml/min; Globulin 2.5 gm/dl (2.5-4.0); Magnesium 1.8 mg/dl (1.7-2.4); Phosphorus 2.7 mg/dl (2.5-4.9); Potassium 3.6 mmol/L (3.5-5.1); Total Protein 5.1 gm/dl (6.0-8.3)
[2021-12-28] MEDS: BRIMONIDINE TARTRATE/TIMOLOL OP SCH ×2 (08:35→21:19)
[2021-12-28] MEDS: LIDOCAINE 5% 1 PATCH TD SCH (08:35)
[2021-12-28] MEDS: dilTIAZem HCl 60 MG TAB PO SCH ×4 (08:36→21:20)
[2021-12-28] MEDS: cloNIDine HCL 0.1 MG TAB PO SCH ×2 (08:36→21:19)
[2021-12-28] MEDS: FLUTICASONE/VILANTEROL 200/25MCG 14 PUFFS/INHALER INH SCH (08:36)
[2021-12-28] MEDS: PANTOprazole 40 MG TAB PO SCH (08:36)
[2021-12-28] MEDS: levETIRAcetam 500 MG TAB PO SCH ×2 (08:36→21:21)
[2021-12-28] MEDS: POLYETHYLENE (MIRALAX) 17 GM PACK PO SCH (08:36)
[2021-12-28] MEDS: ENOXAPARIN INJ 40 MG/0.4 ML SYR SQ SCH (08:36)
[2021-12-28] MEDS: ASPIRIN 81 MG ECTAB PO SCH (08:36)
[2021-12-28] MEDS: oxyCODONE HCL IR 5 MG TAB (IMMEDIATE RELEASE) PO PRN ×3 (08:40→23:30)
--- NOTE | 2021-12-28 08:46 | Anesthesiology Consultation ---
Date of Service December 28, 2021 Assessment & Plan Chart Review Chart Review: Acceptable Risk for Surgery, Patient NOT seen in Pre Admission Testing and entry rep initiated Consults Requested none History Surgery Operation Date: 12/28/21 17:10 Proposed Procedures p Esophagogastroduodenoscopy Dr Vyas - Alex Vyas MD Height/Weight Height: 5 ft 5 in Weight: 61.5 kg Allergies Allergy/AdvReac Type Severity Reaction Status Date / Time baclofen Allergy Unknown Unknown Verified 11/22/21 13:26 carvedilol Allergy Unknown Unknown Verified 11/22/21 13:26 clozapine Allergy Unknown unknown Verified 11/22/21 13:26 haloperidol Allergy Unknown unknown Verified 11/22/21 13:26 metoclopramide Allergy Unknown Unknown Verified 11/22/21 13:26 Phenothiazines Allergy Unknown unkonwn Verified 11/22/21 13:26 Medications Home Medications Medication Instructions Recorded Confirmed Last Taken multivitamin 1 tab PO QAM 02/11/18 11/22/21 08/17/21 05:00 brimonidine 0.2 %-timolol 0.5 % 1 drops ophthalmic (eye) BID 11/12/18 11/22/21 08/18/21 05:00 eye drops (Combigan) loratadine 10 mg tablet (Claritin) 10 mg PO DAILY PRN Allergy Symptoms 06/11/20 11/22/21 Unknown psyllium husk 3.4 gram/5.4 gram 1 tbsp PO QAM 06/11/20 11/22/21 08/17/21 05:00 oral powder (Metamucil) acetaminophen 325 mg capsule 650 mg PO Q4H PRN pain #100 caps 12/24/20 11/22/21 03/02/21 aspirin 81 mg tablet,delayed 81 mg PO QAM 08/04/21 11/22/21 08/18/21 05:00 release allopurinol 100 mg tablet 100 mg PO QDD #90 tabs 08/15/21 11/22/21 08/17/21 17:00 omeprazole 20 mg capsule,delayed 20 mg PO QAM #90 caps 08/15/21 11/22/21 08/17/21 05:00 release pravastatin 80 mg tablet 80 mg PO HS #90 tabs 08/15/21 11/22/21 08/17/21 17:00 amlodipine 5 mg tablet 5 mg PO QDD #90 tabs 08/22/21 11/22/21 Unknown levetiracetam 500 mg tablet 500 mg PO BID #60 tabs 09/16/21 11/22/21 Unknown (Jerman) clonidine HCl 0.2 mg tablet See Rx Instructions PO HS #180 tabs 10/07/21 11/22/21 Unknown hydrocodone 5 mg-acetaminophen 325 1 tab PO TID PRN pain #90 tabs 11/29/21 Unknown mg tablet prednisone 10 mg tablets in a dose See Rx Instructions .Route 11/29/21 Unknown pack .COMPLEX #42 ea Active Medications Generic Name Dose Route Start Last Admin Trade Name Freq PRN Reason Stop Dose Admin Allopurinol 100 mg 12/26/21 16:30 12/27/21 16:13 Allopurinol 100 Mg Tab PO 01/25/22 16:29 100 mg QDD SHERLYN Administration Aspirin 81 mg 12/26/21 09:00 12/28/21 08:36 Aspirin 81 Mg Ectab PO 01/25/22 08:59 81 mg QAM SHERLYN Administration Brimonidine/Timolol 1 drops 12/28/21 09:00 12/28/21 08:35 Brimonidine Tartrate/Timolol OP 01/27/22 08:59 1 drops BID SHERLYN Administration Clonidine HCl 0.2 mg 12/26/21 21:00 12/28/21 08:36 Clonidine Hcl 0.1 Mg Tab PO 01/25/22 20:59 0.2 mg BID SHERLYN Administration Diltiazem HCl 60 mg 12/26/21 13:00 12/28/21 08:36 Diltiazem Hcl 60 Mg Tab PO 01/25/22 12:59 60 mg QID SHERLYN Administration Enoxaparin Sodium 40 mg 12/26/21 09:00 12/28/21 08:36 Enoxaparin Inj 40 Mg/0.4 Ml Syr SQ 01/25/22 08:59 40 mg QAM SHERLYN Administration Fluticasone/Vilanterol 1 puffs 12/26/21 19:15 12/28/21 08:36 Fluticasone/Vilanterol 200/25mcg 14 Puffs/Inhaler INH 01/25/22 19:14 1 puffs DAILY SHERLYN Administration Levetiracetam 500 mg 12/25/21 21:00 12/28/21 08:36 Levetiracetam 500 Mg Tab PO 01/24/22 20:59 500 mg BID SHERLYN Administration Lidocaine 1 patch 12/25/21 17:45 12/28/21 08:35 Lidocaine 5% 1 Patch TD 01/24/22 17:44 1 patch QAM SHERLYN Administration Loratadine 10 mg 12/25/21 20:36 12/28/21 08:36 Loratadine 10 Mg Tab PO 01/24/22 20:35 10 mg DAILY PRN Administration Allergy Symptoms Miscellaneous 1 each 12/25/21 21:00 12/27/21 20:36 Remove Lidoderm Patch N/A 01/24/22 20:59 1 each DAILY@2100 SHERLYN Administration Oxycodone HCl 5 mg 12/26/21 12:11 12/28/21 08:40 Oxycodone Hcl Ir 5 Mg Tab (Immediate Release) PO 01/09/22 12:10 5 mg Q4 PRN Administration Pain severe Pantoprazole Sodium 40 mg 12/26/21 09:00 12/28/21 08:36 Pantoprazole 40 Mg Tab PO 01/25/22 08:59 40 mg QAM SHERLYN Administration Polyethylene Glycol 17 gm 12/27/21 09:00 12/28/21 08:36 Polyethylene (Miralax) 17 Gm Pack PO 01/26/22 08:59 17 gm DAILY SHERLYN Administration Pravastatin Sodium 80 mg 12/25/21 21:00 12/27/21 20:32 Pravastatin Sod 40 Mg Tab PO 01/24/22 20:59 80 mg HS SHERLYN Administration Past Medical History Medical History Acid reflux TEMO (acute kidney injury) Benign prostatic hypertrophy Chronic kidney disease, stage III (moderate) no specialist per pt COPD with emphysema pt 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 Glaucoma Gouty arthritis prednisone taper 07/19/2021 by PCP for suspected gout, persistent discoloration and pain of toes-abnormal CTA with upcoming vascular surgery History of anesthesia reaction was confused, felt like his bed was on the wall, the clock was on the floor, after approx half hr, resolved History of blood transfusion 2009 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 [facility] complete Hypercholesterolemia Hypertension Impaired fasting glucose 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, fall in setting of seizure activity, HTN; follows with [facility] neuro d/c from neurosurgery: monitoring f/u imaging to further rule out vascular malformations and "aid in diagnosis of CAA should there be progression of micro-hemorrhages" Lumbar spinal stenosis Lung nodule Peripheral vascular disease Pulmonary hypertension mild 2018 echo Pulmonary nodule to have biopsy through [facility] IR 03/2021, not yet completed per records Retinal detachment Sacroiliitis Sciatica of left side gets steroid injections Seizure 03/02/2021, fall in setting of seizure activity, HTN; follows with [facility] neuro d/c from neurosurgery: monitoring f/u imaging to further rule out vascular malformations and "aid in diagnosis of CAA should there be progression of micro-hemorrhages" Skin lesion of left ear 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 Post-op anesthesia progress note: "...was hypertensive on arrival to PACU so was treated with labetalol. He remains hypertensive but his blood pressure is lower than it was at his preoperative baseline. His other vital signs are stable." H/O aorto-femoral bypass (~2009) [address] Alfaro H/O transurethral resection of prostate History of colonoscopy History of esophagogastroduodenoscopy (EGD) with dilation Hx of non-cataract eye surgery left eye x3 for retina issues Loss of teeth due to extraction Status post aortic bifurcation bypass graft History of Bypass Graft (Non-Vein) Aortic-bifemoral > 2009 > [facility] Status post appendectomy Status post cataract surgery bilat Status post tonsillectomy and adenoidectomy Social History Smoking Status: Former smoker tobacco type: cigarettes Hx Alcohol Use: No Hx Substance Use: No substance use type: does not use Physical Exam Vital Signs Last Vital Signs Temp 37.3 C 12/28/21 07:41 Pulse 77 12/28/21 07:41 Resp 18 12/28/21 07:41 BP 144/64 H 12/28/21 07:41 Pulse Ox 95 12/28/21 07:41 O2 Del Method 12/28/21 07:41 O2 Flow Rate 4 12/28/21 07:41 FiO2 30 12/25/21 15:07 Testing Laboratory Results 12/28/21 06:20 12/28/21 06:20 12/25/21 17:24 Aerobic Blood Culture - Preliminary Blood No growth in Aerobic bottle after 48 hours. Anaerobic Blood Culture - Preliminary No growth in Anaerobic bottle after 48 hours. 12/25/21 17:24 Aerobic Blood Culture - Preliminary Blood No growth in Aerobic bottle after 48 hours. Anaerobic Blood Culture - Preliminary No growth in Anaerobic bottle after 48 hours. Electrocardiogram Date: 12/26/21 Test Reason : Blood Pressure : / mmHG Vent. Rate : 111 BPM Atrial Rate : 111 BPM P-R Int : 152 ms QRS Dur : 082 ms QT Int : 334 ms P-R-T Axes : -18 049 065 degrees QTc Int : 454 ms Sinus tachycardia Otherwise normal ECG When compared with ECG of 26-DEC-2021 06:06, No significant change was found Confirmed by Allan Zhou ([id number]) on 12/26/2021 2:07:59 PM Chest X-Ray Date: 12/25/21 FINDINGS: Single frontal view of the chest demonstrates the cardiomediastinal silhouette to be within normal limits. The lungs are clear of alveolar opacities. There is no evidence for pleural effusion. There is no evidence for vascular congestion. There is no acute osseous pathology. IMPRESSION: 1. No acute cardiopulmonary disease. Echocardiogram Date: 12/26/21 EF: >70% LV Function: Hyperdynam RWMA: + none Other Findings: + LVH (mild, concentric) AoV sclerosis
[2021-12-28] MEDS: UMECLIDINIUM BROMIDE 62.5MCG/BLISTER 7 PUFFS/INHALER INH SCH (11:10)
[2021-12-28] MEDS ORDERED: PROPOFOL IV EMULSION 10 MG/ML 20 ML VIAL IV ONE (12:33)
[2021-12-28] MEDS ORDERED: LIDOCAINE 2% MPF LOCAL 5 ML VIAL INFIL ONE (12:33)
--- NOTE | 2021-12-28 12:36 | History & Physical Bridge Note ---
Date of Service December 28, 2021 History & Physical Bridge Note I have examined the patient, reviewed the History & Physical and in the interval since the performance of the History & Physical I have noted the following changes of clinical significance: no changes noted
--- NOTE | 2021-12-28 13:08 | GI REPORT ---
Patient Name: Baron Bliss Procedure Date: 12/28/2021 12:35 PM Date of : 1935 Admit Type: Inpatient Age: 86 Gender: Male Attending MD: Alex Vyas MD Procedure: Upper GI endoscopy Providers: Alex Vyas MD, Evonne Cano DO Referring MD: Naeem Alcala Md Indications: Dysphagia Patient Profile: This is an 86 year old male. Refer to note in patient chart for documentation of history and physical. Medicines: Monitored Anesthesia Care Complications: No immediate complications. Estimated Blood Loss: Estimated blood loss was minimal. Procedure: Pre-Anesthesia Assessment: - Prior to the procedure, a History and Physical was performed, and patient medications and allergies were reviewed. The risks and benefits of the procedure and the sedation options and risks were discussed with the patient. All questions were answered and informed consent was obtained. Patient identification and proposed procedure were verified by the physician, the nurse and the deep fryer assembler in the procedure room. Mental Status Examination: alert and oriented. Respiratory Examination: clear to auscultation. CV Examination: RRR, no murmurs, no S3 or S4. Prophylactic Antibiotics: The patient does not require prophylactic antibiotics. Prior Anticoagulants: The patient has taken no previous anticoagulant or antiplatelet agents except for aspirin. ASA Grade Assessment: III - A patient with severe systemic disease. After reviewing the risks and benefits, the patient was deemed in satisfactory condition to undergo the procedure. The anesthesia plan was to use monitored anesthesia care (MAC). Immediately prior to administration of medications, the patient was re-assessed for adequacy to receive sedatives. The physical status of the patient was re-assessed after the procedure. After obtaining informed consent, the endoscope was passed under direct vision. Throughout the procedure, the patient's blood pressure, pulse, and oxygen saturations were monitored continuously. The Endoscope was introduced through the mouth, and advanced to the second part of duodenum. The upper GI endoscopy was accomplished without difficulty. The patient tolerated the procedure well. Findings: The Z-line was regular and was found 39 cm from the incisors. Abnormal motility was noted in the esophagus. There is spasticity of the esophageal body. The distal esophagus/lower esophageal sphincter is spastic, but gives up passage to the endoscope. A guidewire was placed and the scope was withdrawn. Dilation was performed with a Savary dilator with no resistance at 15 mm and mild resistance at 18 mm. The dilation site was examined following endoscope reinsertion and showed mild mucosal disruption, moderate improvement in luminal narrowing and no perforation. A diverticulum with a small opening was found in the middle third of the esophagus and in the lower third of the esophagus. A single area of ectopic gastric mucosa was found in the upper third of the esophagus. The entire examined stomach was normal. 2 large diverticulums were found in the second portion of the duodenum. Impression: - Z-line regular, 39 cm from the incisors. - Abnormal esophageal motility, suspicious for achalasia. Dilated up to 18 mm. 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 - Ectopic gastric mucosa in the upper third of the esophagus. - Normal stomach. - Duodenal diverticulum. - No specimens collected. Recommendation: - Return patient to [facility] for ongoing care. - Resume previous diet. - Continue present medications. - Recommend manometry for further evaluation of dysphagia given concern for achalasia on endoscopy today. Alex Vyas MD 12/28/2021 1:07:36 PM This report has been signed electronically. Evonne Cano Do Note Initiated On: 12/28/2021 12:35 PM Number of Addenda: 0 I attest to the content of the Intraoperative Record and orders documented therein, exceptions below {[id number]}
--- NOTE | 2021-12-28 15:03 | Anesthesiology Progress Note ---
Date of Service December 28, 2021 Anesthesia Post Procedure Vital Signs Vital Signs: Temp Pulse Pulse Pulse Resp BP BP 12/28/21 13:31 57 L 16 140/63 12/28/21 13:16 54 L 16 114/50 L 12/28/21 13:01 50 L 16 97/45 L 12/28/21 11:20 36.4 C L 14 165/62 H 12/28/21 08:00 12/28/21 07:41 37.3 C 77 18 144/64 H 12/28/21 04:35 37.4 C 78 18 132/65 12/28/21 03:09 81 12/27/21 20:30 12/27/21 23:36 37.4 C 83 16 153/71 H 12/27/21 19:47 36.8 C 88 20 149/72 H 12/27/21 19:36 80 16 12/27/21 15:55 36.9 C 92 H 20 121/64 Pulse Ox O2 Del Method O2 Flow Rate 12/28/21 13:31 96 Nasal Cannula 2 12/28/21 13:16 97 Nasal Cannula 2 12/28/21 13:01 97 Nasal Cannula 2 12/28/21 11:20 94 Nasal Cannula 2 12/28/21 08:00 Nasal Cannula 2 12/28/21 07:41 95 Nasal Cannula 4 12/28/21 04:35 95 Nasal Cannula 4.0 12/28/21 03:09 12/27/21 20:30 Nasal Cannula 12/27/21 23:36 89 L Nasal Cannula 2.0 12/27/21 19:47 91 Nasal Cannula 2.0 12/27/21 19:36 91 Nasal Cannula 2 12/27/21 15:55 93 Nasal Cannula 2 Pain Intensity Posterior Back: Pain Intensity: 7 Right Posterior Shoulder: Pain Intensity: 2 Transfer of Care Handoff Completed per policy Notes Mental Status: alert / awake / arousable and participated in evaluation Patient Amnestic to Procedure: Yes Nausea / Vomiting: adequately controlled Pain: adequately controlled Airway Patency, RR, SpO2: stable & adequate BP & HR: stable & adequate Hydration State: stable & adequate Anesthetic Complications: no major complications apparent and Pt Satisfied with anesthetic care
--- NOTE | 2021-12-28 17:11 | Hospitalist Progress Note ---
Date of Service December 28, 2021 Assessment & Plan (1) Respiratory failure with hypoxia: Plan: Acute hypoxic respiratory failuresomewhat unclear etiology; probably multifactoriallung mass with underlying COPD; continue bronchodilation; added LAMA (2) Elevated troponin: Plan: No angina; likely demand ischemia; continue aspirin, continue statin; Echo shows well-preserved ejection fraction and hyperdynamic LV; ct Cardizem (3) Lung cancer: Plan: Likely squamous cell given hypercalcemiaoncology consulted- Per draft note note bone scan, MRI brain, CT abdomen pelvis; pain control; (4) Seizure prophylaxis: Plan: 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 - continue keppra 500mg PO BID (5) HTN (hypertension): Plan: Switched to short acting Cardizemuptitrate as needed; pressures much betteralso on clonidine 0.2 mg twice a day that he took at home with improvement (6) COPD with emphysema: Plan: Uncertain how well validated; continue scheduled ipratropium; added Breo; added LAMA (7) Peripheral arterial disease: Plan: No acute needs, pulses remain palpable with warm feet bilaterally - continue aspirin and statin - swelling greater on right side - surgical side- negative for DVT via venous duplex study (8) Chronic kidney disease, stage III (moderate): Plan: Creatinine betterobserve (9) Hypercholesterolemia: Plan: Continue statin (10) Leukocytosis: Plan: May be leukemoid type of reaction or steroid effect; cultures negative to dateWBC count betterobserve (11) 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 continue with his home eye drops (12) Hypercalcemia: Plan: At presentation, likely paraneoplasticwas never excessively elevated; given low phosphate could be PTH related peptide related; at present observe (13) Dysphagia: Plan: Noted EGD; status post dilatation; manometry as outpatient for possible achalasia Plan Mild left sided ptosis but does not seem like Hayden'sMRI brain as above in any case Noted impressive drop in hemoglobin but no clinical bleeding was reportedobserve for now Admission and Anticipated Discharge Date Admission Date: December 25, 2021 Subjective Follow-up of presentation with shortness of breathcontinues to be hypoxic but no new issues as such in this regard; EGD today Physical Exam Physical Exam: Constitutional and general: No acute distress, looks biologic age Head and face: No puffiness, atraumatic Eyes: No scleral icterus, extraocular movements normal; have noted mild left ptosis Neck: Supple, no JVD Musculoskeletal: No acute joint swelling, no bony abnormalities Skin/dermatologic/integument: No rash, no purpura Hematologic and lymphatic: pallor +, no petechia Gastrointestinal/abdomen: Nondistended, soft, nonacute Neurologic: Cranial nerves intact, nonfocal Psychiatry: Awake, alert, pleasant, communicative Cardiovascular: Heart rhythm regular, no rub, no murmur, no gallop Respiratory: Chest movements equal, no use of accessory muscles, no wheezing; decreased breath sounds Extremities: No edema, no cyanosis Results & Data Results & Data ([facility]) Vital Signs (Past 12 Hours) Vital Signs Temp Pulse Pulse Resp BP Pulse Ox O2 Del Method 12/28/21 14:45 36.4 C L 60 18 130/72 94 Nasal Cannula 12/28/21 13:31 57 L 16 140/63 96 Nasal Cannula 12/28/21 13:16 54 L 16 114/50 L 97 Nasal Cannula 12/28/21 13:01 50 L 16 97/45 L 97 Nasal Cannula 12/28/21 11:20 36.4 C L 14 165/62 H 94 Nasal Cannula 12/28/21 08:00 Nasal Cannula 12/28/21 07:41 37.3 C 77 18 144/64 H 95 Nasal Cannula O2 Flow Rate 12/28/21 14:45 4 12/28/21 13:31 2 12/28/21 13:16 2 12/28/21 13:01 2 12/28/21 11:20 2 12/28/21 08:00 2 12/28/21 07:41 4 Laboratory Results Laboratory Results - last 24 hr 12/27/21 12/28/21 12/28/21 Unknown 06:20 06:20 WBC 13.08 H RBC 3.07 L Hgb 9.7 L Hct 29.4 L MCV 95.8 MCH 31.6 MCHC 33.0 RDW Std Deviation 46.2 RDW Coeff of Pepe 13.2 Plt Count 210 MPV 10.2 Immature Gran % (Auto) 0.5 Neut % (Auto) 84.6 Lymph % (Auto) 4.5 [place] % (Auto) 8.8 Eos % (Auto) 1.5 Baso % (Auto) 0.1 Neut # (Auto) 11.07 H Lymph # (Auto) 0.59 L [place] # (Auto) 1.15 H Eos # (Auto) 0.19 Baso # (Auto) 0.01 Immature Gran # (Auto) 0.07 H Sodium 135 L Potassium 3.6 Chloride 101 Carbon Dioxide 25 Anion Gap 9 BUN 23 Creatinine 1.20 Est Cr Clr Drug Dosing 37.0 Est GFR ( Amer) 62.2 Est GFR (Non-Af Amer) 53.7 Fasting Glucose 111 H Calcium 9.0 Phosphorus 2.7 Magnesium 1.8 Total Bilirubin 0.7 AST 15 ALT 14 Alkaline Phosphatase 44 Total Protein 5.1 L Albumin 2.6 L Globulin 2.5 Albumin/Globulin Ratio 1.0 Adenovirus (PCR) Not Detected B. pertussis DNA (PCR) Not Detected B.parapertussis DNA PCR Not Detected C. pneumoniae DNA (PCR) Not Detected Coronavirus OC43 (PCR) Not Detected Coronavirus HKU1 (PCR) Not Detected Coronavirus 229E (PCR) Not Detected SARS-CoV-2 (PCR) Not Detected Coronavirus NL63 (PCR) Not Detected Human Metapneumovir PCR Not Detected Influenza Type A (PCR) Not Detected Influenza Type B (PCR) Not Detected M. pneumoniae (PCR) Not Detected Parainfluenza 1 (PCR) Not Detected Parainfluenza 2 (PCR) Not Detected Parainfluenza 3 (PCR) Not Detected Parainfluenza 4 (PCR) Not Detected RSV (PCR) Not Detected Entero/Rhino (PCR) Not Detected PG Care Time/CCT Total # of Minutes Spent Total Time Spent with Patient: Total time spent is greater than 50% in coordination of care (as documented) at patient's floor/unit and/or counseling patient: Coding Level of Care Code 56985 Subseq Hosp Care Lvl 2 Diagnoses Respiratory failure with hypoxia J96.91 Elevated troponin R77.8 Lung cancer C34.90 Seizure prophylaxis Z29.8 HTN (hypertension) I10 COPD with emphysema J43.9 Peripheral arterial disease I73.9 Chronic kidney disease, stage III (moderate) N18.3 Hypercholesterolemia E78.00 Leukocytosis D72.829 Retinal detachment H33.20 Hypercalcemia E83.52 Dysphagia R13.10
[2021-12-28] MEDS: allopurinoL 100 MG TAB PO SCH (17:37)
[2021-12-28] MEDS ORDERED: GADOBUTROL 65ML VIAL IV ONE (20:12)
[2021-12-28] MEDS ORDERED: OPTIRAY 300 100mL IV ONE (20:28)
--- NOTE | 2021-12-28 21:06 | CT Scan Report ---
CT OF THE ABDOMEN AND PELVIS WITH CONTRAST CLINICAL HISTORY: Lung cancer, staging scans per oncology COMPARISON STUDY: CT of the abdomen and pelvis March 02, 2021. CTA of the abdomen and pelvis with runoff August 01, 2021. Chest CT December 25, 2021. TECHNIQUE: Following IV administration of 88 mL of Optiray, axial images of the abdomen and pelvis we re obtained from the lung bases to the proximal femurs. Images were reviewed in the axial, sagittal, and coronal planes. IV contrast was administered without complication. Automated exposure control wa s utilized for the study. A dose lowering technique was utilized adhering to the principles of ALARA . CT DOSE: 599.99 mGycm FINDINGS: Emphysema is noted within the lower lungs. Moderate left lower lobe consolidation has devel oped since recent chest CT of December 25, 2021. There is mild right lower lobe airspace opacity. No pn eumatosis, free air or portal venous gas is present. There is cardiomegaly. Healing right 10th rib fr acture is noted. Numerous hepatic cysts are present. There is no biliary or pancreatic ductal dilatat ion. Spleen, adrenal glands are unremarkable. Subcentimeter bilateral renal lesions are too small to characterize. There is no hydronephrosis. Scarring within the lower pole of the right kidney is noted . Multiple duodenal diverticula are present. There is no evidence for a bowel obstruction. Colonic di verticulosis is noted without evidence for acute diverticulitis. No abdominal or pelvic lymphadenopat hy is present. Bladder is distended and contains contrast from prior contrast enhanced CT. Hyperdense foci within the prostate favor foci of enhancement. This is nonspecific. Right hip arthroplasty is p resent. Aortobifemoral bypass graft is noted. Limbs appear patent. No suspicious skeletal lesions are identified. IMPRESSION: 1. No evidence of metastatic disease within the abdomen or pelvis. 2. Left lower lobe airspace opacity which has developed since recent chest CT of December 25, 2021. Thi s suggests pneumonia. 3. Distended bladder. 4. Colonic diverticulosis. No evidence for acute diverticulitis. ACT 112: Negative or not required by law. Electronically signed by: Jm Dallas M.D. 12/28/2021 9:05 PM
[2021-12-28] MEDS: PRAVASTATIN SOD 40 MG TAB PO SCH (21:21)
[2021-12-29] MEDS ORDERED: oxyCODONE HCL IR 5 MG TAB (IMMEDIATE RELEASE) PO STA ×2 (03:23→16:26)
[2021-12-29] MEDS: oxyCODONE HCL IR 5 MG TAB (IMMEDIATE RELEASE) PO PRN ×3 (03:46→19:58)
[2021-12-29 05:08] LABS: Basophils # (auto) 0.01 K/uL (0-0.2); Basophils % (auto) 0.1 %; Eosinophils # (auto) 0.37 K/uL (0-0.50); Eosinophils % (auto) 4.5 %; Hematocrit (blood only) 28.2 % (40.1-51.0); Hemoglobin 9.5 g/dl (14.0-18.0); Immature Granulocytes # (auto) 0.04 K/uL (0.00-0.02); Immature Granulocytes % (auto) 0.5 %; Lymphocytes # (auto) 0.46 K/uL (1.2-3.4); Lymphocytes % (auto) 5.6 %; Mean Corpuscular Hgb Conc 33.7 g/dL (32.0-36.0); Mean Corpuscular Volume 94.9 fL (80.0-100.0); Mean Platelet Volume 10.2 fL (9.4-12.4); Monocytes # (auto) 1.09 K/uL (0.24-0.82); Monocytes % (auto) 13.2 %; Neutrophils % (auto) 76.1 %; Platelet Count 209 K/uL (130-400); RDW Coefficient of Variation 13.1 % (11.5-14.5); RDW Standard Deviation 45.2 fL (36.4-46.3); Red Blood Count 2.97 M/uL (4.63-6.08); White Blood Count 8.27 K/ul (4.8-10.8)
[2021-12-29 05:33] LABS: Albumin Level 2.6 gm/dl (3.4-5.0); Bilirubin,Total 0.5 mg/dl (0.2-1.0); Calcium 8.8 mg/dl (8.5-10.1); Est GFR (African American) 59.2 ml/min; Est GFR (Non-African American) 51.1 ml/min; Globulin 2.5 gm/dl (2.5-4.0); Magnesium 1.7 mg/dl (1.7-2.4); Phosphorus 2.8 mg/dl (2.5-4.9); Potassium 3.7 mmol/L (3.5-5.1); Total Protein 5.1 gm/dl (6.0-8.3)
[2021-12-29] MEDS: ASPIRIN 81 MG ECTAB PO SCH (08:50)
[2021-12-29] MEDS: PANTOprazole 40 MG TAB PO SCH (08:50)
[2021-12-29] MEDS: levETIRAcetam 500 MG TAB PO SCH ×2 (08:50→20:04)
[2021-12-29] MEDS: BRIMONIDINE TARTRATE/TIMOLOL OP SCH ×2 (08:51→20:03)
[2021-12-29] MEDS: ENOXAPARIN INJ 40 MG/0.4 ML SYR SQ SCH (08:51)
[2021-12-29] MEDS: FLUTICASONE/VILANTEROL 200/25MCG 14 PUFFS/INHALER INH SCH (08:51)
[2021-12-29] MEDS: dilTIAZem HCl 60 MG TAB PO SCH ×4 (08:51→20:04)
[2021-12-29] MEDS: cloNIDine HCL 0.1 MG TAB PO SCH ×2 (08:51→20:03)
[2021-12-29] MEDS: LIDOCAINE 5% 1 PATCH TD SCH (08:52)
[2021-12-29] MEDS: UMECLIDINIUM BROMIDE 62.5MCG/BLISTER 7 PUFFS/INHALER INH SCH (08:52)
[2021-12-29] MEDS: POLYETHYLENE (MIRALAX) 17 GM PACK PO SCH (08:52)
--- NOTE | 2021-12-29 09:41 | Magnetic Resonance Report ---
Brain MRI WITH AND WITHOUT CONTRAST HISTORY: Headaches. Lung cancer, staging MRI per oncology TECHNIQUE: Multiplanar multisequence MRI of the brain was performed both before and after the intrave nous administration of contrast. COMPARISON STUDY: Head CT 03/02/2021. Brain MRI 12/15/2017. PET CT 02/16/2021. FINDINGS: There is no mass, hematoma, midline shift, or acute infarct. The paranasal sinuses are klarissa r. The mastoid air cells are clear. The ventricles and sulci demonstrate mild age-related involutiona l changes. Scattered foci of T2 hyperintensity seen within the periventricular and subcortical white matter are nonspecific but suggestive of mild microvascular ischemic changes. The major vascular flow voids at the skull base are well-maintained. There are 2 small foci of susceptibility artifact withi n the left posterior parietal lobe consistent with sites of old hemorrhage. Hyperdense material again noted within the left globe. This remains unchanged. Punctate old lacunar infarcts within the pipo a nd left cerebellar hemisphere. There is an additional small focus of encephalomalacia within the high convexity the right frontal lobe with associated gliosis. This also favors an old infarct. No abnorm al enhancement. IMPRESSION: 1. No evidence for intracranial metastatic disease. 2. Chronic changes as described above. ACT 112: Negative or not required by law. Electronically signed by: Hebert Dickson M.D. 12/29/2021 9:39 AM
[2021-12-29] MEDS: AMPICILLIN/SULBACTAM SOD 3,000 MG in 0.9 % SODIUM CHLORIDE 100 ML IV SCH ×3 (10:36→21:54)
--- NOTE | 2021-12-29 15:32 | Nuclear Medicine Report ---
WHOLE-BODY NUCLEAR BONE SCAN CLINICAL HISTORY: Lung cancer. COMPARISON STUDY: Chest CT dated 12/25/2021. CT scan of the abdomen and pelvis dated 12/28/2021. TECHNIQUE: Three hours following the IV administration of 24.9 mCi of technetium 99m MDP, whole body nuclear bone scan was performed in the anterior and posterior projections. FINDINGS: There is focal abnormal activity within the right posterior fourth and fifth ribs. This is related to direct bony invasion when correlated with the chest CT. No additional foci of abnormal tracer uptake are seen throughout the skeleton typical for bony metastatic disease. A photopenic defect is consistent with a right hip arthroplasty. Typically degenerative uptake is raul ntified shoulders, ankles, and the left foot. Low-level and typically degenerative activity is also s een in both the cervical and lumbar spine. There is expected excreted activity within the renal collecting system and bladder. IMPRESSION: 1. Abnormal activity within the right posterior fourth and fifth ribs is related to direct tumor inva екатерина when correlated with the recent chest CT. 2. There is no evidence of distant osseous metastatic disease. ACT 112: Negative or not required by law. Electronically signed by: Shaun Barreto M.D. 12/29/2021 3:30 PM
--- NOTE | 2021-12-29 16:14 | Hospitalist Progress Note ---
Date of Service December 29, 2021 Assessment & Plan (1) Respiratory failure with hypoxia: Plan: Acute hypoxic respiratory failuresomewhat unclear etiology; probably multifactoriallung mass with underlying COPD; continue bronchodilation and other therapy; however, no pneumonia, could be aspiration; added Unasyn; hold off further escalation for now (2) Elevated troponin: Plan: No angina; likely demand ischemia; continue aspirin, continue statin; Echo shows well-preserved ejection fraction and hyperdynamic LV; ct Cardizem (3) Lung cancer: Plan: Likely squamous cell given hypercalcemiaoncology consult appreciated; no evidence of distant metastases; radiation oncology consulted (4) Seizure prophylaxis: Plan: 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 - continue keppra 500mg PO BID (5) HTN (hypertension): Plan: Doing betterno change (6) COPD with emphysema: Plan: Uncertain how well validated; continue scheduled ipratropium; continue Breo and (7) Peripheral arterial disease: Plan: No acute needs, pulses remain palpable with warm feet bilaterally - continue aspirin and statin - swelling greater on right side - surgical side- negative for DVT via venous duplex study (8) Chronic kidney disease, stage III (moderate): Plan: Creatinine betterobserve (9) Hypercholesterolemia: Plan: Continue statin (10) 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 continue with his home eye drops (11) Dysphagia: Plan: Noted EGD; status post dilatation; manometry as outpatient for possible achalasia (12) PNA (pneumonia): Plan: Not present on admission; have to consider hospital-acquired but suspect aspirationUnasyn for now; hold off further escalation; added flutter valve; will consider more aggressive pulmonary toilet (13) Anemia: Plan: No clinical bleedingobserve Plan Mild left sided ptosis but does not seem like Hayden'sfollow Admission and Anticipated Discharge Date Admission Date: December 25, 2021 Subjective Follow-up of presentation with shortness of breathcontinues to be hypoxic but no new issues as such; eating better after EGD and dilatation Physical Exam Physical Exam: Constitutional and general: No acute distress, looks biologic age Head and face: No puffiness, atraumatic Eyes: No scleral icterus, extraocular movements normal; have noted mild left ptosis Neck: Supple, no JVD Musculoskeletal: No acute joint swelling, no bony abnormalities Skin/dermatologic/integument: No rash, no purpura Hematologic and lymphatic: pallor +, no petechia Gastrointestinal/abdomen: Nondistended, soft, nonacute Neurologic: Cranial nerves intact, nonfocal Psychiatry: Awake, alert, pleasant, communicative Cardiovascular: Heart rhythm regular, no rub, no murmur, no gallop Respiratory: Chest movements equal, no use of accessory muscles, no wheezing; decreased breath sounds more so right side Extremities: No edema, no cyanosis Results & Data Results & Data ([facility]) Vital Signs (Past 12 Hours) Vital Signs Temp Pulse Resp BP Pulse Ox O2 Del Method O2 Flow Rate 12/29/21 07:54 36.7 C 73 18 146/67 H 94 Nasal Cannula 4 Laboratory Results Laboratory Results - last 24 hr 12/29/21 12/29/21 12/29/21 04:41 04:41 10:00 WBC 8.27 RBC 2.97 L Hgb 9.5 L Hct 28.2 L MCV 94.9 MCH 32.0 MCHC 33.7 RDW Std Deviation 45.2 RDW Coeff of Pepe 13.1 Plt Count 209 MPV 10.2 Immature Gran % (Auto) 0.5 Neut % (Auto) 76.1 Lymph % (Auto) 5.6 [place] % (Auto) 13.2 Eos % (Auto) 4.5 Baso % (Auto) 0.1 Neut # (Auto) 6.30 Lymph # (Auto) 0.46 L [place] # (Auto) 1.09 H Eos # (Auto) 0.37 Baso # (Auto) 0.01 Immature Gran # (Auto) 0.04 H Sodium 136 Potassium 3.7 Chloride 104 Carbon Dioxide 26 Anion Gap 6 BUN 22 Creatinine 1.25 Est Cr Clr Drug Dosing 35.0 Est GFR ( Amer) 59.2 Est GFR (Non-Af Amer) 51.1 Fasting Glucose 109 H Calcium 8.8 Phosphorus 2.8 Magnesium 1.7 Total Bilirubin 0.5 AST 24 ALT 19 Alkaline Phosphatase 48 Total Protein 5.1 L Albumin 2.6 L Globulin 2.5 Albumin/Globulin Ratio 1.0 Procalcitonin 0.20 PG Care Time/CCT Total # of Minutes Spent Total Time Spent with Patient: Total time spent is greater than 50% in coordination of care (as documented) at patient's floor/unit and/or counseling patient: Coding Level of Care Code 38778 Subseq Hosp Care Lvl 2 Diagnoses Respiratory failure with hypoxia J96.91 Elevated troponin R77.8 Lung cancer C34.90 Seizure prophylaxis Z29.8 HTN (hypertension) I10 COPD with emphysema J43.9 Peripheral arterial disease I73.9 Chronic kidney disease, stage III (moderate) N18.3 Hypercholesterolemia E78.00 Retinal detachment H33.20 Dysphagia R13.10 PNA (pneumonia) J18.9 Anemia D64.9
[2021-12-29] MEDS: ACETAMINOPHEN 500 MG TAB PO SCH ×2 (16:33→23:35)
[2021-12-29] MEDS: allopurinoL 100 MG TAB PO SCH (16:34)
[2021-12-29] MEDS: PRAVASTATIN SOD 40 MG TAB PO SCH (20:04)
[2021-12-30] MEDS: AMPICILLIN/SULBACTAM SOD 3,000 MG in 0.9 % SODIUM CHLORIDE 100 ML IV SCH ×4 (03:21→22:17)
[2021-12-30 04:11] LABS: Basophils # (auto) 0.01 K/uL (0-0.2); Basophils % (auto) 0.1 %; Eosinophils # (auto) 0.39 K/uL (0-0.50); Eosinophils % (auto) 5.6 %; Hematocrit (blood only) 26.1 % (40.1-51.0); Hemoglobin 8.5 g/dl (14.0-18.0); Immature Granulocytes # (auto) 0.04 K/uL (0.00-0.02); Immature Granulocytes % (auto) 0.6 %; Lymphocytes # (auto) 0.63 K/uL (1.2-3.4); Mean Corpuscular Hemoglobin 31.8 pg (25.0-34.0); Mean Corpuscular Hgb Conc 32.6 g/dL (32.0-36.0); Mean Corpuscular Volume 97.8 fL (80.0-100.0); Mean Platelet Volume 10.1 fL (9.4-12.4); Monocytes # (auto) 1.09 K/uL (0.24-0.82); Monocytes % (auto) 15.6 %; Neutrophils # (auto) 4.81 K/uL (1.4-6.5); Neutrophils % (auto) 69.1 %; Platelet Count 182 K/uL (130-400); RDW Coefficient of Variation 13.1 % (11.5-14.5); RDW Standard Deviation 46.9 fL (36.4-46.3); Red Blood Count 2.67 M/uL (4.63-6.08); White Blood Count 6.97 K/ul (4.8-10.8)
[2021-12-30 05:04] LABS: Albumin Globulin Ratio 1.1 (0.9-2); Albumin Level 2.5 gm/dl (3.4-5.0); Bilirubin,Total 0.4 mg/dl (0.2-1.0); Calcium 8.8 mg/dl (8.5-10.1); Creatinine Clr Calc Pharmacy 33.8 ml/min; Est GFR (African American) 55.9 ml/min; Est GFR (Non-African American) 48.3 ml/min; Globulin 2.3 gm/dl (2.5-4.0); Magnesium 1.7 mg/dl (1.7-2.4); Phosphorus 3.3 mg/dl (2.5-4.9); Potassium 4.5 mmol/L (3.5-5.1); Total Protein 4.8 gm/dl (6.0-8.3)
[2021-12-30] MEDS: ASPIRIN 81 MG ECTAB PO SCH (08:31)
[2021-12-30] MEDS: cloNIDine HCL 0.1 MG TAB PO SCH ×2 (08:31→20:13)
[2021-12-30] MEDS: levETIRAcetam 500 MG TAB PO SCH ×2 (08:31→20:15)
[2021-12-30] MEDS: PANTOprazole 40 MG TAB PO SCH (08:31)
[2021-12-30] MEDS: dilTIAZem HCl 60 MG TAB PO SCH ×2 (08:31→19:52)
[2021-12-30] MEDS: ENOXAPARIN INJ 40 MG/0.4 ML SYR SQ SCH (08:32)
[2021-12-30] MEDS: FLUTICASONE/VILANTEROL 200/25MCG 14 PUFFS/INHALER INH SCH (08:33)
[2021-12-30] MEDS: LIDOCAINE 5% 1 PATCH TD SCH (08:33)
[2021-12-30] MEDS: POLYETHYLENE (MIRALAX) 17 GM PACK PO SCH (08:33)
[2021-12-30] MEDS: UMECLIDINIUM BROMIDE 62.5MCG/BLISTER 7 PUFFS/INHALER INH SCH (08:33)
[2021-12-30] MEDS: BRIMONIDINE TARTRATE/TIMOLOL OP SCH ×2 (08:34→21:00)
[2021-12-30] MEDS: ACETAMINOPHEN 500 MG TAB PO SCH ×2 (08:37→17:25)
--- NOTE | 2021-12-30 09:13 | Radiation OncologyConsultation ---
Date of Consultation December 30, 2021 Assessment & Plan (1) Lung cancer: Assessment: Mr. 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 Patient subsequently was found to have an abnormal chest CT scan at the latter part of last year with a 1.3 cm nodule in the right upper lobe PET scan positive. Patient was scheduled for a biopsy however he fell and has had multiple issues and his planned biopsy was canceled and unable to be rescheduled. More recently patient has noted increasing shortness of breath and presented to the emergency department on 12/25/2021. Staging work-up shows significant enlargement of the right upper lobe nodule which is now invading into the chest wall. MRI of the brain, CT chest abdomen and pelvis have shown no evidence of metastatic disease. Treatment Options: 1. Percutaneous biopsy of tumor mass to obtain tissue verification. 2. Repeat bronchoscopy with EBUS and biopsy to determine hilar and mediastinal involvement. 3. Definitive treatment with chemo radiation. 4. Palliative treatment with radiation only. Recommendations: The patient is having considerable back pain from his tumor eroding into the chest wall. Despite this he does not appear to have evidence of dissemination. If the patient were to consider systemic chemotherapy we would need to proceed with staging work-up in compassing endoscopy with EUS and tissue verification. If the patient would not consider systemic chemotherapy we could proceed with a course of local radiation to the chest wall only. Plan: 1. Dr. Alcantar will meet with the patient to discuss whether he would consider systemic chemotherapy. 2. If no systemic chemotherapy we will attempt to obtain tissue diagnosis through percutaneous biopsy if possible. 3. If systemic chemotherapy is an option we would suggest bronchoscopy with EBUS and biopsy along with a percutaneous biopsy of the chest wall mass if needed. 4. We will proceed with CT simulation for treatment. 5. The initiation of treatment and the duration of treatment will depend on whether the patient is willing to proceed with combined modality therapy or just radiation. Rationale/Explanation of Treatment: Mr. rCaig has been treated to the head neck in 2013 with curative intent and has done well. Last year he was found to have a solitary nodule which was PET positive. He was being considered for SBRT and was scheduled for an IR referral and biopsy. Unfortunately before this could take place the patient fell and had multiple complications delaying tissue diagnosis. More recently he presented with progression of his respiratory symptoms and initiation of chest pain. He was seen in the emergency department and scans have shown progression of the disease from 1.3 cm to over 5 cm. In addition there is erosion into the chest wall with destruction of the ribs. Bone scan, MRI and CT scans however have shown no evidence of dissemination. I spoke with the patient today and he is interested in being aggressive if appropriate as primary treatment for his lung cancer. We discussed the possibility of systemic therapy and he is concerned because of things that he have heard. I have however asked him to hold off on any judgment until he has had a chance to meet with and to discuss the systemic treatment options. It is likely that these would depend on tissue diagnosis and for this reason I spoke with Dr. Alcala (hospitalist) and asked him to see if radiology would consider a percutaneous biopsy for tissue diagnosis. If the patient is willing to proceed with systemic chemotherapy we will need to evaluate his mediastinum and a bronchoscopy with EBUS will be discussed with pulmonary. If there is no evidence of mediastinal disease and patient is willing to accept systemic chemotherapy we would treat with combined modality utilizing conventional fractionation and appropriate systemic therapy as recommended by Dr. Alcantar. We would treat to a dose of 70 Gy that would encompass the primary disease and it is invasion into the chest wall. If there is evidence of mediastinal or hilar involvement prior treatment rosales with us encompass these sites along with the primary. If the patient did not wish to consider systemic chemotherapy we would proceed with a course of aggressive palliative radiation utilizing hypofractionation to encompass the primary disease and chest wall involvement. I have recommended we proceed with CT simulation today. This will be performed without IV contrast. This information will be utilized for treatment planning. I reviewed with the patient the potential risks and side effects of a course of systemic therapy plus definitive doses of radiation to encompass the mediastinum and chest wall and just systemic chemotherapy and chest wall versus radiation to the chest wall only. The consent form risks were initialed by the patient and the consent form was signed and witnessed. The patient had multiple questions which were answered to his full satisfaction. Thank you for allowing us to participate in the care of this patient. This chart was completed in part utilizing [employer] Voice Recognition software. Grammatical errors, random word insertions, pronoun errors and incomplete sentences are occasional consequence of this system due to software limitations, ambient noise and hardware issues. Any formal questions or concerns about the content, text or information contained within the body of this dictation should be directly addressed to the provider for clarification. Luke Garcia MD Department of Radiation Oncology [facility] History of Present Illness Reason for Consultation: Lung mass with rib invasion and pain Attending Physician: Naeem Alcala MD History of Present Illness Mr. Bliss noted discomfort in the left retromolar region. He had recently obtained upper and lower dentures and the discomfort he felt was due to the use of the lower denture. He sought an evaluation for what he thought would require modifications of his denture. This discomfort had been present and increasing over a few month time period. He had denied any weight loss, hoarseness or decreasing appetite. Patient was seen by Dr. Hieu Lopes who referred the patient to Dr. Zion Hays on 09/23/2013. He noted in the oropharynx an ulcerative lesion in the left retromolar trigone region. A flexible laryngoscopy shows no lesions of the tongue base, epiglottis or larynx. There were no palpable neck adenopathy or abnormalities of the thyroid gland. A biopsy of this lesion was performed. This confirmed a moderately differentiated squamous cell carcinoma. There were noted fragments of atypical squamous epithelium with increased mitotic activity and areas poorly oriented. No distinct stromal reaction is identified but the complexity of the lesion is consistent with invasion from a pushing margin. The depth of invasion could not be accurately identified but no perineural invasion and no lymphovascular invasion was identified. Case: [id number]. On 10/01/2013 Dr. Zion Hays ordered a staging PET/CT scan. This revealed an intensely FDG avid lesion in the left floor the mouth located deep to the left mandibular ramus. This measures approximately 2 x 2 centimeters and demonstrates a maximum SUV of 16.8. No cervical lymphadenopathy was noted. The thorax, abdomen and pelvis showed no evidence of metastatic disease. The unenhanced CT images showed numerous hepatic cysts measuring up to 2.7 cm and an enlarged prostate gland measuring 6.0 cm. There is evidence of severe chronic obstructive pulmonary disease and advanced atherosclerotic disease involving the aorta and major branches. There is evidence of previous bypass grafting involving the abdominal aorta, the iliac arteries and the proximal common femoral arteries. There is gyriform increased density involving a gyrus in the high left parietal lobe that may be artifactual though not typical in appearance. Dedicated imaging of the brain was mentioned as an option. Given the size and location of the lesion as well as the patient's comorbidities surgery was felt to be a secondary treatment option. Dr. Zion Hays felt the patient would be better served by definitive radiation with consideration of possible systemic chemotherapy. For that reason we were asked to see the patient in referral and the patient was to be seen in referral by Dr. Walker 12/23/2013. Status post completion of definitive radiation therapy received 7000 cGy He has been doing well over this past year(2019). He denies any changes in the left retroareolar area. He is noted no masses or tenderness. He does have mild xerostomia. His sense of taste is good but not quite as well as years ago. His appetite is good and weight is stable. Over this past year he did have a skin lesion removed by dermatology. He also had injection in the lumbar spine area. He has had a detached retina. All of these issues are stable. 12/04/2020. The patient presented to the emergency department after a fall striking his head, left arm and shoulder and right hip. The patient was found to have a displaced fracture of the left humerus, right femur and was evaluated by orthopedics. A chest x-ray showed a possible abnormality and as part of the work-up a CT of the chest was performed. This showed a spiculated 13 mm nodule within the right upper lobe that abuts the posterior pleural surface. Also noted was a focal area of interstitial thickening within the right upper lobe anteriorly that could represent areas of chronic scarring. There were small scarlike densities in the lung apices. Bibasilar linear densities likely represent subsegmental atelectasis. An 8 mm irregular density within the right upper lobe was noted. There was no suspicious lytic or blastic bony lesions, no mediastinal or hilar lymphadenopathy was appreciated. There were multiple scattered hypodense lesions within the liver but favor cysts. 9 mm intermediate density lesion seen within the right kidney without enhancement favoring hyperdense cyst. There was evidence of moderate to severe emphysema and a trace right pleural fluid. 12/07/2020. Patient is seen by Dr. Carmona (pulmonology) for evaluation of the solitary pulmonary nodule. His review of the scans indicated a high probability of cancer without mediastinal adenopathy. He recommended PET CT scan following discharge. He did not feel it clear airway was present to biopsy it and discussed IR guided biopsy as an outpatient if patient is willing. He felt the patient would benefit with outpatient PFTs. 02/16/2021. Patient undergoes a PET CT scan. This showed no enlarged axillary, mediastinal or hilar lymphadenopathy. There was moderate cardiomegaly with coronary artery calcification present. Moderate emphysema is present. There is marked FDG uptake within a 1.3 cm spiculated nodule within the right upper lobe corresponding to the nodule seen on chest CT scan. SUV max is 13.2. An additional 8 mm right upper lobe nodule noted on prior CT scan is no longer identified. No additional pulmonary nodules were present. There is no evidence of metastatic disease appreciated. 02/17/2021. Patient returned to see Dr. Carmona. They reviewed the PET CT scan. Given its location he did not feel there was a clear bronchoscopic pathway to the lesion. He thought it was possible to consider biopsy through interventional radiology. He wanted to present the patient at the multidisciplinary lung conference and felt the patient may be best served by radiation oncology referral for consideration of SBRT. 02/24/2021. Patient's case was reviewed at our multidisciplinary lung conference. The scans were reviewed by radiology. The patient was not felt to be a candidate for surgical excision. The possibility of interventional radiology performing a biopsy was discussed. The lesion is behind the rib but they thought it possibly could be reached through a percutaneous biopsy. The were going to review this with interventional radiology and have the patient evaluated as appropriate. 02/25/2021. Patient is seen in radiation oncology for evaluation and discussion of the radiation treatment options. 02/25/2021. Lung cancer conference. Patient was discussed and decision was made for him to undergo percutaneous biopsy. Arrangements through Dr. Carmona's office. 03/14/2021. Lung cancer conference. We are updated that the patient had fallen 03/02/2021 and had a left parietal hemorrhage. He was life flighted to [facility]. 08/04/2021. Patient hospitalized for chronic kidney disease. 08/18/2021. Status post bilateral lower extremity runoff, percutaneous transluminal angioplasty of right superficial femoral artery. Patient developed a right ischemic ulcerated toe and underwent wound care. 12/25/2021. Patient hospitalized for hypoxia. Chest CT. Finding of enlarged right upper lobe pulmonary nodule. 5.2 cm. 12/28/2021. CT of abdomen pelvis. No evidence of metastatic disease in the abdomen or pelvis. 12/28/2021. MRI of the brain. No evidence of intracranial metastatic disease. The patient does have significant right upper shoulder pain. He gives this at length pain level of 10+. He had been on oxycodone 5 mg at home. This has been increased to 10. He is taking this every 4 hours. Currently feels his pain is better controlled. His appetite has been decreased due to the amount of pain that he has been having. He feels that he has had front 20 pound weight loss over the past year. He denies any increasing shortness of breath. He does not have pain with cough. Allergies Allergy/AdvReac Type Severity Reaction Status Date / Time baclofen Allergy Unknown Unknown Verified 11/22/21 13:26 carvedilol Allergy Unknown Unknown Verified 11/22/21 13:26 clozapine Allergy Unknown unknown Verified 11/22/21 13:26 haloperidol Allergy Unknown unknown Verified 11/22/21 13:26 metoclopramide Allergy Unknown Unknown Verified 11/22/21 13:26 Phenothiazines Allergy Unknown unkonwn Verified 11/22/21 13:26 Home Medications Medication Instructions Recorded Confirmed Type multivitamin 1 tab PO QAM 02/11/18 11/22/21 History brimonidine 0.2 %-timolol 0.5 % 1 drops ophthalmic (eye) BID 11/12/18 11/22/21 History eye drops (Combigan) loratadine 10 mg tablet (Claritin) 10 mg PO DAILY PRN Allergy Symptoms 06/11/20 11/22/21 History psyllium husk 3.4 gram/5.4 gram 1 tbsp PO QAM 06/11/20 11/22/21 History oral powder (Metamucil) acetaminophen 325 mg capsule 650 mg PO Q4H PRN pain #100 caps 12/24/20 11/22/21 Rx aspirin 81 mg tablet,delayed 81 mg PO QAM 08/04/21 11/22/21 History release allopurinol 100 mg tablet 100 mg PO QDD #90 tabs 08/15/21 11/22/21 Rx omeprazole 20 mg capsule,delayed 20 mg PO QAM #90 caps 08/15/21 11/22/21 Rx release pravastatin 80 mg tablet 80 mg PO HS #90 tabs 08/15/21 11/22/21 Rx amlodipine 5 mg tablet 5 mg PO QDD #90 tabs 08/22/21 11/22/21 Rx levetiracetam 500 mg tablet 500 mg PO BID #60 tabs 09/16/21 11/22/21 Rx (Keppra) clonidine HCl 0.2 mg tablet See Rx Instructions PO HS #180 tabs 10/07/21 11/22/21 Rx hydrocodone 5 mg-acetaminophen 325 1 tab PO TID PRN pain #90 tabs 11/29/21 Rx mg tablet prednisone 10 mg tablets in a dose See Rx Instructions .Route 11/29/21 Rx pack .COMPLEX #42 ea Patient History Medical History Acid reflux TEMO (acute kidney injury) Benign prostatic hypertrophy Chronic kidney disease, stage III (moderate) no specialist per pt COPD with emphysema pt 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 Glaucoma Gouty arthritis prednisone taper 07/19/2021 by PCP for suspected gout, persistent discoloration and pain of toes-abnormal CTA with upcoming vascular surgery History of anesthesia reaction was confused, felt like his bed was on the wall, the clock was on the floor, after approx half hr, resolved History of blood transfusion 2009 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 [facility] complete Hypercholesterolemia Hypertension Impaired fasting glucose 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, fall in setting of seizure activity, HTN; follows with [facility] neuro d/c from neurosurgery: monitoring f/u imaging to further rule out vascular malformations and "aid in diagnosis of CAA should there be progression of micro-hemorrhages" Lumbar spinal stenosis Lung nodule Peripheral vascular disease Pulmonary hypertension mild 2018 echo Pulmonary nodule to have biopsy through [facility] IR 03/2021, not yet completed per records Retinal detachment Sacroiliitis Sciatica of left side gets steroid injections Seizure 03/02/2021, fall in setting of seizure activity, HTN; follows with [facility] neuro d/c from neurosurgery: monitoring f/u imaging to further rule out vascular malformations and "aid in diagnosis of CAA should there be progression of micro-hemorrhages" Skin lesion of left ear 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 Post-op anesthesia progress note: "...was hypertensive on arrival to PACU so was treated with labetalol. He remains hypertensive but his blood pressure is lower than it was at his preoperative baseline. His other vital signs are stable." H/O aorto-femoral bypass (~2009) [address] Alfaro H/O transurethral resection of prostate History of colonoscopy History of esophagogastroduodenoscopy (EGD) with dilation Hx of non-cataract eye surgery left eye x3 for retina issues Loss of teeth due to extraction Status post aortic bifurcation bypass graft History of Bypass Graft (Non-Vein) Aortic-bifemoral > 2009 > [facility] Status post appendectomy Status post cataract surgery bilat Status post tonsillectomy and adenoidectomy Family History Sister Breast cancer Diabetes Father Parkinsons disease Prostate cancer Mother Diabetes Denies family history of Ovarian cancer Myocardial infarction Lung cancer Colorectal cancer Social History Smoking Status: Former smoker Tobacco Type: Cigarettes Age Started Using Tobacco: 14; Age Quit Using Tobacco: 64; packs per day: 1; Second Hand Exposure: No; Hx Alcohol Use: No Hx Substance Use: No Preferred Language: Malay Communication Ability: Effective Visual Impairment: Limited Hearing Ability: Normal Cloth Spreader Screen Printing Required: No Beliefs That Will Affect Care: None marital status: / Current Living Situation: Alone Current Living Situation Comment: Lives in own home and can live on one floor current occupational status: retired How many Children do You have: 4 Other Information That Helps Us Care for You: No Feels Safe at Home: Yes Safety Concerns: Feels Safe At This Time Childhood Exposure to Second-Hand Smoke: No caffeine: Yes Dental Care, Regularly: No Physical Activity Frequency: 5-6 Times per Week Seatbelt Use: always Sunscreen Use: No Assistive Devices: Hospital Bed, Scooter/Electric Scooter, Stair Lift, Walker and Wheelchair Review of Systems Review of Systems: 13 point review of systems completed. See history of present illness for relevant findings. He has no residual complaints in regards to the previous head and neck treatment. He denies xerostomia. He has no problems with taste. He has no issues with swallowing. He has had no problems with trismus. Physical Exam Constitutional: WD/WN, vitals as above Eyes: PERRL, conjunctivae normal, anicteric sclerae ENMT: Ears: + hearing impairment Mouth reveals well-healed scar in the left retromalleolar region. There are no visible masses of the gumline, buccal mucosa, floor of the mouth or posterior pharynx. Neck: trachea midline, no thyromegaly Respiratory: normal respiratory effort Auscultation: + diminished lung sounds (Especially noted in the right upper lobe area.) and + bronchovesicular breath sounds Cardiovascular: RRR, no murmur, no edema Gastrointestinal (Abdomen): normal bowel sounds, soft, nontender, no hepatosplenomegaly Musculoskeletal: Patient has tenderness to palpation over the right scapular area. Skin: no rashes, warm and dry Neurologic: Normal strength and coordination. Psychiatric: A+Ox3, euthymic affect Time Spent Attending This documentation has been prepared in full or in part by Sarah JACQUES acting as a scribe under my direction. I, Dr. Garcia personally reviewed the services described and have reviewed the documentation to ensure its accuracy. I spent 30 minutes with direct face to face interaction with the patient which included obtaining clinical information, recommending a plan of action and answering questions. I spent 30 minutes reviewing his previous treatment, his chart, his scans, discussion with medical oncology and preparation of this document CARLOS
[2021-12-30] MEDS: oxyCODONE HCL IR 5 MG TAB (IMMEDIATE RELEASE) PO PRN ×3 (11:34→22:21)
[2021-12-30 12:17] LABS: Prothrombin Time 10.9 Seconds (9.0-12.0)
--- NOTE | 2021-12-30 17:09 | Hospitalist Progress Note ---
Date of Service December 30, 2021 Assessment & Plan (1) Respiratory failure with hypoxia: Plan: Acute hypoxic respiratory failureprobably multifactoriallung mass with underlying COPD; continue bronchodilation and other therapy; however, new pneumonia, could be aspiration; added Unasyn; still hold off further escalation for now; nasal MRSA negative (2) Elevated troponin: Plan: No angina; likely demand ischemia; continue aspirin, continue statin; Echo shows well-preserved ejection fraction and hyperdynamic LV; now trending bradycardic (3) Lung cancer: Plan: Likely squamous cell given hypercalcemiaoncology consult appreciated; no evidence of distant metastases; radiation oncology consulted and input appreciated; discussion with themthey recommended biopsy radiology guidedconsulted (4) Seizure prophylaxis: Plan: 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 - continue keppra 500mg PO BID (5) HTN (hypertension): Plan: Trending bradycardicswitch Cardizem to amlodipine (6) COPD with emphysema: Plan: Uncertain how well validated; continue scheduled ipratropium; continue Breo and (7) Peripheral arterial disease: Plan: No acute needs, pulses remain palpable with warm feet bilaterally - continue aspirin and statin - swelling greater on right side - surgical side- negative for DVT via venous duplex study (8) Chronic kidney disease, stage III (moderate): Plan: Creatinine stableobserve (9) Hypercholesterolemia: Plan: Continue statin (10) 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 continue with his home eye drops (11) Dysphagia: Plan: Noted EGD; status post dilatation; manometry as outpatient for possible achalasia (12) PNA (pneumonia): Plan: Not present on admission; have to consider hospital-acquired but suspect aspirationUnasyn for now; hold off further escalation; added flutter valve; will consider more aggressive pulmonary toilet (13) Anemia: Plan: Continuing decline, no clinical bleedingadded empiric PPI, though I am very rel uctant for this stool occult; ferritin noncontributory; does not appear like a myelophthisic process; ; haptoglobin ordered along with reticulocyte Plan Mild left sided ptosis but does not seem like Hayden'sfollow; Admission and Anticipated Discharge Date Admission Date: December 25, 2021 Subjective Follow-up of presentation with shortness of breathno new issues assessed; again denies GI bleeding, melena Physical Exam Physical Exam: Constitutional and general: No acute distress, looks biologic age Head and face: No puffiness, atraumatic Eyes: No scleral icterus, extraocular movements normal; have noted mild left ptosis Neck: Supple, no JVD Musculoskeletal: No acute joint swelling, no bony abnormalities Skin/dermatologic/integument: No rash, no purpura Hematologic and lymphatic: pallor +, no petechia Gastrointestinal/abdomen: Nondistended, soft, nonacute Neurologic: Cranial nerves intact, nonfocal Psychiatry: Awake, alert, pleasant, communicative Cardiovascular: Heart rhythm regular, no rub, no murmur, no gallop Respiratory: Chest movements equal, no use of accessory muscles, no wheezing; decreased breath sounds more so right side Extremities: No edema, no cyanosis Results & Data Results & Data ([facility]) Vital Signs (Past 12 Hours) Vital Signs Temp Pulse Pulse Resp BP Pulse Ox O2 Del Method 12/30/21 15:15 Nasal Cannula 12/30/21 08:00 58 L 12/30/21 12:00 36.6 C 52 L 22 123/51 L 98 Nasal Cannula 12/30/21 07:56 36.6 C 77 18 148/61 H 95 Room Air O2 Flow Rate 12/30/21 15:15 4 12/30/21 08:00 12/30/21 12:00 12/30/21 07:56 Laboratory Results Laboratory Results - last 24 hr 12/30/21 12/30/21 12/30/21 03:46 03:46 03:46 WBC 6.97 RBC 2.67 L Hgb 8.5 L Hct 26.1 L MCV 97.8 MCH 31.8 MCHC 32.6 RDW Std Deviation 46.9 H RDW Coeff of Pepe 13.1 Plt Count 182 MPV 10.1 Immature Gran % (Auto) 0.6 Neut % (Auto) 69.1 Lymph % (Auto) 9.0 [place] % (Auto) 15.6 Eos % (Auto) 5.6 Baso % (Auto) 0.1 Neut # (Auto) 4.81 Lymph # (Auto) 0.63 L [place] # (Auto) 1.09 H Eos # (Auto) 0.39 Baso # (Auto) 0.01 Immature Gran # (Auto) 0.04 H PT INR Sodium 134 L Potassium 4.5 D Chloride 101 Carbon Dioxide 27 Anion Gap 6 BUN 23 Creatinine 1.31 Est Cr Clr Drug Dosing 33.8 Est GFR ( Amer) 55.9 Est GFR (Non-Af Amer) 48.3 Fasting Glucose 110 H Calcium 8.8 Phosphorus 3.3 Magnesium 1.7 Ferritin 326.8 Total Bilirubin 0.4 AST 24 ALT 21 Alkaline Phosphatase 41 Total Protein 4.8 L Albumin 2.5 L Globulin 2.3 L Albumin/Globulin Ratio 1.1 Nasal Screen MRSA (PCR) 12/30/21 12/30/21 11:33 11:35 WBC RBC Hgb Hct MCV MCH MCHC RDW Std Deviation RDW Coeff of Pepe Plt Count MPV Immature Gran % (Auto) Neut % (Auto) Lymph % (Auto) [place] % (Auto) Eos % (Auto) Baso % (Auto) Neut # (Auto) Lymph # (Auto) [place] # (Auto) Eos # (Auto) Baso # (Auto) Immature Gran # (Auto) PT 10.9 INR 1.0 Sodium Potassium Chloride Carbon Dioxide Anion Gap BUN Creatinine Est Cr Clr Drug Dosing Est GFR ( Amer) Est GFR (Non-Af Amer) Fasting Glucose Calcium Phosphorus Magnesium Ferritin Total Bilirubin AST ALT Alkaline Phosphatase Total Protein Albumin Globulin Albumin/Globulin Ratio Nasal Screen MRSA (PCR) Negative PG Care Time/CCT Total # of Minutes Spent Total Time Spent with Patient: Total time spent is greater than 50% in coordination of care (as documented) at patient's floor/unit and/or counseling patient: Coding Level of Care Code 10574 Subseq Hosp Care Lvl 2 Diagnoses Respiratory failure with hypoxia J96.91 Elevated troponin R77.8 Lung cancer C34.90 Seizure prophylaxis Z29.8 HTN (hypertension) I10 COPD with emphysema J43.9 Peripheral arterial disease I73.9 Chronic kidney disease, stage III (moderate) N18.3 Hypercholesterolemia E78.00 Retinal detachment H33.20 Dysphagia R13.10 PNA (pneumonia) J18.9 Anemia D64.9
[2021-12-30] MEDS: allopurinoL 100 MG TAB PO SCH (17:25)
[2021-12-30] MEDS: PRAVASTATIN SOD 40 MG TAB PO SCH (20:15)
[2021-12-31] MEDS: ACETAMINOPHEN 500 MG TAB PO SCH ×3 (01:03→16:33)
[2021-12-31] MEDS: AMPICILLIN/SULBACTAM SOD 3,000 MG in 0.9 % SODIUM CHLORIDE 100 ML IV SCH ×4 (04:24→21:03)
[2021-12-31] MEDS: oxyCODONE HCL IR 5 MG TAB (IMMEDIATE RELEASE) PO PRN ×4 (04:24→23:56)
[2021-12-31 06:21] LABS: Eosinophils # (auto) 0.45 K/uL (0-0.50); Eosinophils % (auto) 5.2 %; Hematocrit (blood only) 27.2 % (40.1-51.0); Hemoglobin 8.9 g/dl (14.0-18.0); Immature Granulocytes # (auto) 0.04 K/uL (0.00-0.02); Immature Granulocytes % (auto) 0.5 %; Immature Retic Fraction 12.9 % (2.3-13.4); Lymphocytes # (auto) 0.52 K/uL (1.2-3.4); Lymphocytes % (auto) 6.1 %; Mean Corpuscular Hemoglobin 31.8 pg (25.0-34.0); Mean Corpuscular Hgb Conc 32.7 g/dL (32.0-36.0); Mean Corpuscular Volume 97.1 fL (80.0-100.0); Mean Platelet Volume 9.9 fL (9.4-12.4); Monocytes # (auto) 1.13 K/uL (0.24-0.82); Monocytes % (auto) 13.2 %; Neutrophils # (auto) 6.44 K/uL (1.4-6.5); Platelet Count 191 K/uL (130-400); RDW Standard Deviation 46.2 fL (36.4-46.3); Reticulated Hemoglobin 35.1 pg (28.2-36.6); Reticulocyte % 1.2 % (0.5-2.0); Reticulocytes # 0.03 10^6/uL (0.02-0.10); White Blood Count 8.58 K/ul (4.8-10.8)
[2021-12-31 07:04] LABS: Albumin Globulin Ratio 1.1 (0.9-2); Albumin Level 2.8 gm/dl (3.4-5.0); Bilirubin,Total 0.4 mg/dl (0.2-1.0); Calcium 9.1 mg/dl (8.5-10.1); Est GFR (African American) 66.2 ml/min; Est GFR (Non-African American) 57.1 ml/min; Globulin 2.6 gm/dl (2.5-4.0); Magnesium 1.9 mg/dl (1.7-2.4); Phosphorus 3.3 mg/dl (2.5-4.9); Potassium 4.5 mmol/L (3.5-5.1); Total Protein 5.4 gm/dl (6.0-8.3)
[2021-12-31] MEDS: cloNIDine HCL 0.1 MG TAB PO SCH ×2 (08:05→21:02)
[2021-12-31] MEDS: LIDOCAINE 5% 1 PATCH TD SCH (08:05)
[2021-12-31] MEDS: PANTOprazole 40 MG TAB PO SCH (08:07)
[2021-12-31] MEDS: BRIMONIDINE TARTRATE/TIMOLOL OP SCH ×2 (08:07→21:02)
[2021-12-31] MEDS: levETIRAcetam 500 MG TAB PO SCH ×2 (08:07→21:02)
[2021-12-31] MEDS: ASPIRIN 81 MG ECTAB PO SCH (08:07)
[2021-12-31] MEDS: ENOXAPARIN INJ 40 MG/0.4 ML SYR SQ SCH (08:07)
[2021-12-31] MEDS: UMECLIDINIUM BROMIDE 62.5MCG/BLISTER 7 PUFFS/INHALER INH SCH (08:08)
[2021-12-31] MEDS: FLUTICASONE/VILANTEROL 200/25MCG 14 PUFFS/INHALER INH SCH (08:08)
[2021-12-31] MEDS: POLYETHYLENE (MIRALAX) 17 GM PACK PO SCH (08:08)
[2021-12-31] MEDS ORDERED: amLODIPine BESYLATE 5 MG TAB PO SCH (09:00)
[2021-12-31] MEDS ORDERED: HYDROmorphone INJ 1 MG/ML SYRINGE IV STA (09:11)
[2021-12-31] MEDS: amLODIPine BESYLATE 5 MG TAB PO SCH (09:12)
[2021-12-31] MEDS: fentaNYL 12 MCG/HR TDSY TD SCH (09:30)
[2021-12-31] MEDS: CHECK fentaNYL PATCH PLACEMENT SCH ×2 (16:33→23:37)
[2021-12-31] MEDS: allopurinoL 100 MG TAB PO SCH (16:34)
--- NOTE | 2021-12-31 17:34 | Hospitalist Progress Note ---
Date of Service December 31, 2021 Assessment & Plan (1) Respiratory failure with hypoxia: Plan: Acute hypoxic respiratory failureprobably multifactorial, lung mass with underlying COPD; continue bronchodilation; now suspected new aspiration pneumoniaon Unasyn; continue; overall oxygen status better and current vitals record room air (2) Elevated troponin: Plan: No angina, likely demand ischemia; continue aspirin and statin; LV shows preserved ejection fraction (3) Lung cancer: Plan: With local invasion without distant metastases; radiation oncology via discussion recommended biopsyradiology consulted; provisionally plan Sunday; enoxaparin held for procedure Suspect squamous cell; medical oncology and radiation oncology in communication: Worsening pain; added fentanyl patch; preemptive bowel regimen (4) Seizure prophylaxis: Plan: Following past intracranial bleed; continue Keppra (5) HTN (hypertension): Plan: Overall appears stable; no change (6) COPD with emphysema: Plan: Uncertain if validated; continue Breo and LAMA; continue ipratropiumalbuterol avoided on account of tendency to sinus tachycardia (7) Peripheral arterial disease: Plan: Currently nonacute issue; continue aspirin and statin (8) Chronic kidney disease, stage III (moderate): Plan: Stablefollow (9) Hypercholesterolemia: Plan: Continue statin (10) Retinal detachment: Plan: Continue home eyedrops; also history of macular degeneration (11) Dysphagia: Plan: Status post dilatation with EGD; outpatient manometry for possible achalasia (12) PNA (pneumonia): (13) Anemia: Plan: Impressive decline during the course; no clinical bleeding; added empiric PPI; haptoglobin pending; stool occult pending though he denies melena (ordered since history may not be most accurate); does not appear to be a myelophthisic process Plan Observe mild hyponatremia Observe mild ptosisMRI negative; does not seem like Hayden's syndrome Admission and Anticipated Discharge Date Admission Date: December 25, 2021 Subjective Follow-up of presentation with shortness of breathworsening local pain right shoulder area Physical Exam Physical Exam: Constitutional and general: No acute distress, looks biologic age Head and face: No puffiness, atraumatic Eyes: No scleral icterus, extraocular movements normal; mild left ptosis Neck: Supple, no JVD Musculoskeletal: No acute joint swelling, no bony abnormalities Skin/dermatologic/integument: No rash, no purpura Hematologic and lymphatic: pallor +, no petechia Gastrointestinal/abdomen: Nondistended, soft, nonacute Neurologic: Cranial nerves intact, nonfocal Psychiatry: Awake, alert, pleasant, communicative Cardiovascular: Heart rhythm regular, no rub, no murmur, no gallop Respiratory: Chest movements equal, no use of accessory muscles, decreased breath sounds, more so right lung Extremities: No edema, no cyanosis Results & Data Results & Data ([facility]) Vital Signs (Past 12 Hours) Vital Signs Temp Pulse Pulse Resp BP Pulse Ox O2 Del Method 12/31/21 15:56 36.9 C 83 19 128/67 92 Room Air 12/31/21 15:48 95 H 12/31/21 12:16 37.3 C 90 20 131/70 96 Nasal Cannula 12/31/21 10:38 Nasal Cannula 12/31/21 08:00 111 H 12/31/21 08:17 36.8 C 115 H 22 196/92 H 90 Nasal Cannula O2 Flow Rate 12/31/21 15:56 12/31/21 15:48 12/31/21 12:16 4 12/31/21 10:38 4 12/31/21 08:00 12/31/21 08:17 4 Laboratory Results Laboratory Results - last 24 hr 12/31/21 12/31/21 12/31/21 05:48 05:48 05:48 WBC 8.58 RBC 2.80 L Hgb 8.9 L Hct 27.2 L MCV 97.1 MCH 31.8 MCHC 32.7 RDW Std Deviation 46.2 RDW Coeff of Pepe 13.0 Plt Count 191 MPV 9.9 Immature Gran % (Auto) 0.5 Neut % (Auto) 75.0 Lymph % (Auto) 6.1 [place] % (Auto) 13.2 Eos % (Auto) 5.2 Baso % (Auto) 0.0 Reticulocyte % (Auto) 1.2 Neut # (Auto) 6.44 Lymph # (Auto) 0.52 L [place] # (Auto) 1.13 H Eos # (Auto) 0.45 Baso # (Auto) 0.00 Reticulocyte # 0.03 Immature Gran # (Auto) 0.04 H Immature Retic Fraction 12.9 Retic Hgb Content 35.1 Haptoglobin Pending Sodium 134 L Potassium 4.5 Chloride 100 Carbon Dioxide 29 Anion Gap 5 BUN 20 Creatinine 1.14 Est Cr Clr Drug Dosing 39.0 Est GFR ( Amer) 66.2 Est GFR (Non-Af Amer) 57.1 Fasting Glucose 85 Calcium 9.1 Phosphorus 3.3 Magnesium 1.9 Total Bilirubin 0.4 AST 24 ALT 24 Alkaline Phosphatase 45 Total Protein 5.4 L Albumin 2.8 L Globulin 2.6 Albumin/Globulin Ratio 1.1 PG Care Time/CCT Total # of Minutes Spent Total Time Spent with Patient: Total time spent is greater than 50% in coordination of care (as documented) at patient's floor/unit and/or counseling patient: Coding Level of Care Code 19257 Subseq Hosp Care Lvl 2 Diagnoses Respiratory failure with hypoxia J96.91 Elevated troponin R77.8 Lung cancer C34.90 Seizure prophylaxis Z29.8 HTN (hypertension) I10 COPD with emphysema J43.9 Peripheral arterial disease I73.9 Chronic kidney disease, stage III (moderate) N18.3 Hypercholesterolemia E78.00 Retinal detachment H33.20 Dysphagia R13.10 PNA (pneumonia) J18.9 Anemia D64.9
[2021-12-31] MEDS: PRAVASTATIN SOD 40 MG TAB PO SCH (21:03)
[2022-01-01] MEDS: ACETAMINOPHEN 500 MG TAB PO SCH ×3 (00:55→16:28)
[2022-01-01] MEDS ORDERED: oxyCODONE HCL IR 5 MG TAB (IMMEDIATE RELEASE) PO STA (01:21)
[2022-01-01] MEDS: oxyCODONE HCL IR 5 MG TAB (IMMEDIATE RELEASE) PO PRN ×4 (03:59→20:49)
[2022-01-01] MEDS: AMPICILLIN/SULBACTAM SOD 3,000 MG in 0.9 % SODIUM CHLORIDE 100 ML IV SCH ×4 (04:19→22:03)
[2022-01-01 06:10] LABS: Basophils # (auto) 0.02 K/uL (0-0.2); Basophils % (auto) 0.2 %; Eosinophils % (auto) 3.2 %; Hematocrit (blood only) 27.8 % (40.1-51.0); Hemoglobin 9.4 g/dl (14.0-18.0); Immature Granulocytes # (auto) 0.11 K/uL (0.00-0.02); Immature Granulocytes % (auto) 1.2 %; Lymphocytes # (auto) 0.61 K/uL (1.2-3.4); Lymphocytes % (auto) 6.5 %; Mean Corpuscular Hemoglobin 31.9 pg (25.0-34.0); Mean Corpuscular Hgb Conc 33.8 g/dL (32.0-36.0); Mean Corpuscular Volume 94.2 fL (80.0-100.0); Monocytes # (auto) 1.16 K/uL (0.24-0.82); Monocytes % (auto) 12.3 %; Neutrophils % (auto) 76.6 %; Platelet Count 193 K/uL (130-400); RDW Coefficient of Variation 12.7 % (11.5-14.5); RDW Standard Deviation 43.8 fL (36.4-46.3); Red Blood Count 2.95 M/uL (4.63-6.08)
[2022-01-01 06:32] LABS: Albumin Globulin Ratio 1.2 (0.9-2); Albumin Level 2.9 gm/dl (3.4-5.0); Bilirubin,Total 0.3 mg/dl (0.2-1.0); Calcium 9.3 mg/dl (8.5-10.1); Creatinine Clr Calc Pharmacy 39.3 ml/min; Est GFR (African American) 66.9 ml/min; Est GFR (Non-African American) 57.7 ml/min; Globulin 2.5 gm/dl (2.5-4.0); Magnesium 1.9 mg/dl (1.7-2.4); Phosphorus 3.9 mg/dl (2.5-4.9); Potassium 3.8 mmol/L (3.5-5.1); Total Protein 5.4 gm/dl (6.0-8.3)
[2022-01-01] MEDS: CHECK fentaNYL PATCH PLACEMENT SCH ×3 (08:46→23:07)
[2022-01-01] MEDS: amLODIPine BESYLATE 5 MG TAB PO SCH (08:47)
[2022-01-01] MEDS: ASPIRIN 81 MG ECTAB PO SCH (08:47)
[2022-01-01] MEDS: BRIMONIDINE TARTRATE/TIMOLOL OP SCH ×2 (08:47→20:48)
[2022-01-01] MEDS: DOCUSATE SODIUM/SENNA 50/8.6MG TAB PO SCH (08:47)
[2022-01-01] MEDS: cloNIDine HCL 0.1 MG TAB PO SCH ×2 (08:47→20:48)
[2022-01-01] MEDS: FLUTICASONE/VILANTEROL 200/25MCG 14 PUFFS/INHALER INH SCH (08:48)
[2022-01-01] MEDS: PANTOprazole 40 MG TAB PO SCH (08:48)
[2022-01-01] MEDS: levETIRAcetam 500 MG TAB PO SCH ×2 (08:48→20:48)
[2022-01-01] MEDS: POLYETHYLENE (MIRALAX) 17 GM PACK PO SCH (08:48)
[2022-01-01] MEDS: UMECLIDINIUM BROMIDE 62.5MCG/BLISTER 7 PUFFS/INHALER INH SCH (08:49)
[2022-01-01] MEDS: LIDOCAINE 5% 1 PATCH TD SCH (08:49)
--- NOTE | 2022-01-01 14:38 | Hospitalist Progress Note ---
Date of Service January 01, 2022 Assessment & Plan (1) Respiratory failure with hypoxia: Plan: Acute hypoxic respiratory failureprobably multifactorial, lung mass with underlying COPD; continue bronchodilation; suspected new aspiration pneumonia during the course though never had clear fever and was seen primarily on imagingnosocomial initiated on Unasyn, first dose given 12/29/2021 at 10 AMwould finish about 5 to 7 days course (2) Elevated troponin: Plan: No angina, likely demand ischemia; continue aspirin and statin; LV shows preserved ejection fraction (3) Lung cancer: Plan: With local invasion without distant metastases; radiation oncology via discussion recommended biopsyradiology consulted; provisionally plan Sunday; enoxaparin held for procedure Suspect squamous cell; medical oncology and radiation oncology in communication: Pain control better after fentanyl patchno change today; preemptive bowel regimen (4) Seizure prophylaxis: Plan: Following past intracranial bleed; continue Keppra (5) HTN (hypertension): Plan: Overall appears acceptable; no change (6) COPD with emphysema: Plan: Uncertain if validated; continue Breo and LAMA; continue ipratropiumalbuterol avoided on account of tendency to sinus tachycardia (7) Peripheral arterial disease: Plan: Currently nonacute issue; continue aspirin and statin (8) Chronic kidney disease, stage III (moderate): Plan: Stablefollow (9) Hypercholesterolemia: Plan: Continue statin (10) Retinal detachment: Plan: Continue home eyedrops; also history of macular degeneration (11) Dysphagia: Plan: Status post dilatation with EGD; outpatient manometry for possible achalasia (12) PNA (pneumonia): Plan: Not present on admission, suspected aspiration, on Unasyn as above (13) Anemia: Plan: Impressive decline during the course; no clinical bleeding; added empiric PPI; haptoglobin pending; stool occult pending though he denies melena (ordered since history may not be most accurate); does not appear to be a myelophthisic process; at present hemoglobin appears to have stabilized Plan Observe mild hyponatremia Observe mild ptosisMRI negative; does not seem like Hayden's syndrome Admission and Anticipated Discharge Date Admission Date: December 25, 2021 Subjective Follow-up of presentation with shortness of breathpain at site of local invasion of lung cancer (right shoulder area) much better after adding Duragesic patch Physical Exam Physical Exam: Constitutional and general: No acute distress, looks biologic age Head and face: No puffiness, atraumatic Eyes: No scleral icterus, extraocular movements normal; mild left ptosis Neck: Supple, no JVD Musculoskeletal: No acute joint swelling, no bony abnormalities Skin/dermatologic/integument: No rash, no purpura Hematologic and lymphatic: pallor +, no petechia Gastrointestinal/abdomen: Nondistended, soft, nonacute Neurologic: Cranial nerves intact, nonfocal Psychiatry: Awake, alert, pleasant, communicative Cardiovascular: Heart rhythm regular, no rub, no murmur, no gallop Respiratory: Chest movements equal, no use of accessory muscles, decreased breath sounds, more so right lung Extremities: No edema, no cyanosis Results & Data Results & Data ([facility]) Vital Signs (Past 12 Hours) Vital Signs Temp Pulse Pulse Resp BP BP Pulse Ox 01/01/22 11:34 36.6 C 88 17 156/67 H 96 01/01/22 10:00 01/01/22 09:58 82 01/01/22 07:27 36.7 C 91 H 18 158/74 H 96 01/01/22 03:00 37.2 C 100 H 16 136/72 90 O2 Del Method O2 Flow Rate 01/01/22 11:34 Nasal Cannula 3 01/01/22 10:00 Nasal Cannula 4 01/01/22 09:58 01/01/22 07:27 Nasal Cannula 4 01/01/22 03:00 Nasal Cannula Laboratory Results Laboratory Results - last 24 hr 01/01/22 01/01/22 05:42 05:42 WBC 9.40 RBC 2.95 L Hgb 9.4 L Hct 27.8 L MCV 94.2 MCH 31.9 MCHC 33.8 RDW Std Deviation 43.8 RDW Coeff of Pepe 12.7 Plt Count 193 MPV 10.0 Immature Gran % (Auto) 1.2 Neut % (Auto) 76.6 Lymph % (Auto) 6.5 [place] % (Auto) 12.3 Eos % (Auto) 3.2 Baso % (Auto) 0.2 Neut # (Auto) 7.20 H Lymph # (Auto) 0.61 L [place] # (Auto) 1.16 H Eos # (Auto) 0.30 Baso # (Auto) 0.02 Immature Gran # (Auto) 0.11 H Sodium 135 L Potassium 3.8 Chloride 100 Carbon Dioxide 30 Anion Gap 5 BUN 21 Creatinine 1.13 Est Cr Clr Drug Dosing 39.3 Est GFR ( Amer) 66.9 Est GFR (Non-Af Amer) 57.7 Fasting Glucose 109 H Calcium 9.3 Phosphorus 3.9 Magnesium 1.9 Total Bilirubin 0.3 AST 19 ALT 20 Alkaline Phosphatase 47 Total Protein 5.4 L Albumin 2.9 L Globulin 2.5 Albumin/Globulin Ratio 1.2 PG Care Time/CCT Total # of Minutes Spent Total Time Spent with Patient: Total time spent is greater than 50% in coordination of care (as documented) at patient's floor/unit and/or counseling patient: Coding Level of Care Code 22032 Subseq Hosp Care Lvl 2 Diagnoses Respiratory failure with hypoxia J96.91 Elevated troponin R77.8 Lung cancer C34.90 Seizure prophylaxis Z29.8 HTN (hypertension) I10 COPD with emphysema J43.9 Peripheral arterial disease I73.9 Chronic kidney disease, stage III (moderate) N18.3 Hypercholesterolemia E78.00 Retinal detachment H33.20 Dysphagia R13.10 PNA (pneumonia) J18.9 Anemia D64.9
[2022-01-01] MEDS: allopurinoL 100 MG TAB PO SCH (16:28)
[2022-01-01] MEDS: PRAVASTATIN SOD 40 MG TAB PO SCH (20:49)
[2022-01-02] MEDS: ACETAMINOPHEN 500 MG TAB PO SCH ×3 (00:14→17:05)
[2022-01-02] MEDS: AMPICILLIN/SULBACTAM SOD 3,000 MG in 0.9 % SODIUM CHLORIDE 100 ML IV SCH ×4 (04:23→21:44)
[2022-01-02 06:03] LABS: Basophils # (auto) 0.02 K/uL (0-0.2); Basophils % (auto) 0.2 %; Eosinophils # (auto) 0.24 K/uL (0-0.50); Eosinophils % (auto) 2.8 %; Hematocrit (blood only) 25.2 % (40.1-51.0); Hemoglobin 8.5 g/dl (14.0-18.0); Immature Granulocytes # (auto) 0.04 K/uL (0.00-0.02); Immature Granulocytes % (auto) 0.5 %; Lymphocytes # (auto) 0.57 K/uL (1.2-3.4); Lymphocytes % (auto) 6.6 %; Mean Corpuscular Hemoglobin 32.4 pg (25.0-34.0); Mean Corpuscular Hgb Conc 33.7 g/dL (32.0-36.0); Mean Corpuscular Volume 96.2 fL (80.0-100.0); Mean Platelet Volume 10.2 fL (9.4-12.4); Monocytes # (auto) 1.02 K/uL (0.24-0.82); Monocytes % (auto) 11.8 %; Neutrophils # (auto) 6.77 K/uL (1.4-6.5); Neutrophils % (auto) 78.1 %; Platelet Count 189 K/uL (130-400); RDW Coefficient of Variation 12.9 % (11.5-14.5); RDW Standard Deviation 45.1 fL (36.4-46.3); Red Blood Count 2.62 M/uL (4.63-6.08); White Blood Count 8.66 K/ul (4.8-10.8)
[2022-01-02 06:27] LABS: Albumin Globulin Ratio 1.2 (0.9-2); Albumin Level 2.7 gm/dl (3.4-5.0); Bilirubin,Total 0.4 mg/dl (0.2-1.0); Calcium 8.9 mg/dl (8.5-10.1); Est GFR (African American) 66.2 ml/min; Est GFR (Non-African American) 57.1 ml/min; Globulin 2.3 gm/dl (2.5-4.0); Magnesium 1.8 mg/dl (1.7-2.4); Phosphorus 3.3 mg/dl (2.5-4.9); Potassium 4.3 mmol/L (3.5-5.1)
[2022-01-02] MEDS: CHECK fentaNYL PATCH PLACEMENT SCH ×3 (07:47→23:49)
[2022-01-02] MEDS: oxyCODONE HCL IR 5 MG TAB (IMMEDIATE RELEASE) PO PRN ×3 (07:47→21:43)
[2022-01-02] MEDS: amLODIPine BESYLATE 5 MG TAB PO SCH (09:20)
[2022-01-02] MEDS: PANTOprazole 40 MG TAB PO SCH (09:20)
[2022-01-02] MEDS: cloNIDine HCL 0.1 MG TAB PO SCH ×2 (09:20→20:07)
[2022-01-02] MEDS: ASPIRIN 81 MG ECTAB PO SCH (09:20)
[2022-01-02] MEDS: levETIRAcetam 500 MG TAB PO SCH ×3 (09:20→20:08)
[2022-01-02] MEDS: BRIMONIDINE TARTRATE/TIMOLOL OP SCH ×2 (09:21→20:07)
[2022-01-02] MEDS: LIDOCAINE 5% 1 PATCH TD SCH (09:22)
[2022-01-02] MEDS: POLYETHYLENE (MIRALAX) 17 GM PACK PO SCH (09:23)
[2022-01-02] MEDS: FLUTICASONE/VILANTEROL 200/25MCG 14 PUFFS/INHALER INH SCH (09:26)
[2022-01-02] MEDS: UMECLIDINIUM BROMIDE 62.5MCG/BLISTER 7 PUFFS/INHALER INH SCH (09:26)
[2022-01-02] MEDS: DOCUSATE SODIUM/SENNA 50/8.6MG TAB PO SCH (09:30)
[2022-01-02 10:39] LABS: Ferritin 220.3 ng/ml (8-388)
[2022-01-02 10:44] LABS: Folate (Folic Acid) > 22.30 ng/ml (>5.38)
[2022-01-02 10:45] LABS: Vitamin B12 227 pg/ml (180-914)
--- NOTE | 2022-01-02 11:15 | Ultrasound Report ---
ULTRASOUND-GUIDED FINE-NEEDLE ASPIRATION RIGHT UPPER LOBE LUNG/CHEST WALL CLINICAL HISTORY: Right upper lobe lung/chest wall mass. COMPARISON STUDY: Chest CT dated 12/25/2021. PROCEDURE: The risks, benefits, and alternatives to the procedure were discussed with the patient. Wr itten informed consent was obtained. The patient was placed in the left lateral decubitus position in ultrasound, and the approximately 5.5 cm mass lesion in the posterior right upper lobe extending thr ough the posterior chest wall was localized by ultrasound and selected for fine needle aspiration. Th e right upper back was prepped and draped in the usual sterile fashion. 1% lidocaine was used for loc al anesthetic. The lesion was aspirated under ultrasound guidance with 3 passes utilizing 25-gauge ne edles. Specimens were reviewed by the pathologist in real-time and deemed adequate for diagnosis. The patient tolerated the procedure well and left the department in satisfactory condition. IMPRESSION: Completed fine-needle aspiration of a right upper lobe lung/chest wall mass as above. ACT 112: Negative or not required by law. Electronically signed by: Shaun Barreto M.D. 01/02/2022 11:12 AM
--- NOTE | 2022-01-02 12:22 | XRay Report ---
INSPIRATORY/EXPIRATORY CHEST X-RAY CLINICAL HISTORY: Status post right chest wall/lung biopsy. FINDINGS: AP, portable, upright chest radiographs are performed in inspiration and expiration and com pared to chest x-ray and chest CT dated 12/25/2021. The heart is mildly enlarged noting atheroscleroti c calcification of the thoracic aorta. The pulmonary vasculature is noncongested. Emphysematous segal e is again noted. Again seen is a 6 mm mass lesion at the right apex with destruction of the posterio r fourth and fifth ribs. Scarring/atelectasis is noted at both lung bases. There is no airspace conso lidation typical for pneumonia. No pneumothorax is seen. The skeletal structures are osteopenic. IMPRESSION: 1. No pneumothorax is seen post procedure. 2. Cardiomegaly and emphysema. 3. A right apical lung mass with associated rib destruction is unchanged. ACT 112: Negative or not required by law. Electronically signed by: Shaun Barreto M.D. 01/02/2022 12:21 PM
--- NOTE | 2022-01-02 13:39 | Hospitalist Progress Note ---
Date of Service January 02, 2022 Assessment & Plan (1) Respiratory failure with hypoxia: Plan: Patient with prior known SHAYY lesion however multiple falls/rib fx and seizures over the last year and never had follow-up/IR as previously recommended Came in with shortness of breath (underlying COPD) Imaging with RUL mass with invasion to adjacent posterior right fourth/fifth ribs with bone destruction Heme/onc consulted Rec'd imaging to r/o metastatic disease Brain MRI negative for metastatic disease CTAP without evidence for metastatic disease in abdomen or pelvis Rad/oncology consulted Radiation +/- chemo pending course by oncology NPO this morning for biopsy with radiology --> Cytology pending Continue Breo, Incruse inhalers -- likely need new rx given hasn't taken since at [facility] Did have episode of aspiration s/p eval by GI and improvement after emesis of contents and dilation. Suspect achalasia, outpatient manometry recommended -Placed on Unasyn for aspiration pneumonia -first dose 8/18 AM, complete 7 day cours -Convert to Augmentin closer to d/c to complete course Anemia -- Hgb 8.5, no CP/SOB Iron studies c/w acute on chronic disease Folate wnl B12 checked, low normal and replacement ordered and monitor CBC in AM Discussed with Dr Alcantar, recs for inpatient bronch/eval by pulmonary. Pulmonary consulted -- Dr Carmona. Had lovenox held this morning for bx, pending timing for bronch will continue to hold for now. Consult pending Continued inpatient stay for now Had been 98% on 4L this morning -Asked RN to titrate to maintain sats (2 step prior to d/c to ensure no needs w/ ambulation) (2) Elevated troponin: Plan: No angina, likely demand ischemia; continue aspirin and statin; LV shows preserved ejection fraction No CP/SOB reported today (3) Lung cancer: Plan: With local invasion without distant metastases; Radiation oncology, heme/onc consulted Biopsy this morning with radiology, spoke with oncology and rec for pulm/consider Bronch/EBUS while inpatient Pain control -- fentanyl patch ordered days prior, effective and will continue Moving bowels and monitor (4) Seizure prophylaxis: Plan: Following past intracranial bleed; continue Keppra (5) HTN (hypertension): Plan: BP stable 126/63 Continue amlodipine (suspect related to dependent edema as well, dopplers NEGATIVE on admit), clonidine (6) COPD with emphysema: Plan: Uncertain if validated; continue Breo and LAMA; continue ipratropiumalbuterol avoided on account of tendency to sinus tachycardia (7) Peripheral arterial disease: Plan: Currently nonacute issue; continue aspirin and statin (8) Chronic kidney disease, stage III (moderate): Plan: Stablefollow (9) Hypercholesterolemia: Plan: Continue statin (10) Retinal detachment: Plan: Continue home eyedrops; also history of macular degeneration has appointment on Sunday he DOES NOT want to miss (11) Dysphagia: Plan: Status post dilatation with EGD with Dr Vyas 12/28; outpatient manometry for possible achalasia Maintain aspiration precautions per speech eval, extra sauce/gravy (12) PNA (pneumonia): Plan: Not present on admission, suspected aspiration, on Unasyn as above Supplemental O2 as needed, titrate as able (13) Anemia: Plan: Impressive decline during the course; no clinical bleeding; added empiric PPI; fecal occult blood negative Haptoglobin elevated , likely related to underlying malignancy Iron studies w/ acute on chronic MERRITT (iron 24, trans % sat 11% however TIBC low at 222) could consider dose of venofer but will hold off for now Folate wnl B12 low normal, replacement ordered CBC in AM Plan Observe mild hyponatremia (stable, ?related to lung ca), possible volume overload given LE edema however albumin also low 2.7 and suspect some 3rd spacing (also on amlodipine) Pulm consulted to consider bronch while inpatient Titrate O2 Possible d/c in next 24-48 hours pending course and outpatient follow up Admission and Anticipated Discharge Date Admission Date: December 25, 2021 Supervising Physician Co-Signing Physician Notes Attending Attestation - Chart reviewed, care plan d/w AALIYAH Banuelos. I agree w/ the [place] components of her documentation. Dalton Huang MD Subjective Patient evaluated this afternoon, daughter and son -in-law at bedside. Patient with pain to right side of chest, no need for medication at this time. Bx this mrdemetrius, discussed reaching out to oncology about next steps prior to possible outpatient follow up. Currently on 4L NC but denies shortness of breath (did have when he came in), asking RN to titrate. He states oxygen always good and using incentive spirometer up to 3500. Patient has appt w/ ophthm for macular degeneration for his right eye on Sunday that he doesn't want to miss. Had moved bowels for several days on admit but had one yesterday and one today. Takes metamucil at home to assist. Questions/concerns addressed. Talked with Dr Alcantar, asked to see if pulm able to perform bronch while inpati ent given poor prior follow up. Review of Systems Review of Systems: All systems reviewed & are unremarkable except as noted in HPI & below Physical Exam Physical Exam: Constitutional: WD elderly male sitting up in bed with family at bedside, no acute distress HEENT: macular degeneration R eye, pupils equal in size, trachea midline without deviation Chest wall: R anterior/lateral tender to palpation, pain patch in place Resp: good air movement bilaterally, SHAYY crackles, no wheezing, 98%on 4 liters nasal cannula CV: RRR, no m/r/g, 2+ pitting edema b/l LE , calves nontender, pulses palpable GI:+BS nontender : no hudson MSK/Neuro: moves all extremities, no focal deficit, no slurred speech, answering questions appropriately Psych: AOx3 , pleasant and cooperative, anxious about getting home Skin: no rashes, warm and dry Lymphatic: no cervical or axillary lymphadenopathy Results & Data Results & Data ([facility]) Vital Signs (Past 12 Hours) Vital Signs Temp Pulse Pulse Resp BP Pulse Ox O2 Del Method 01/02/22 07:00 70 01/02/22 11:10 36.6 C 75 18 126/63 98 Nasal Cannula 01/02/22 07:30 Nasal Cannula 01/02/22 08:31 36.7 C 86 20 126/55 L 95 Nasal Cannula 01/02/22 04:33 36.8 C 86 18 143/68 H 97 Nasal Cannula O2 Flow Rate 01/02/22 07:00 01/02/22 11:10 4 01/02/22 07:30 4 01/02/22 08:31 4 01/02/22 04:33 4 Laboratory Results 01/02/22 01/02/22 01/02/22 Range/Units 09:32 09:32 05:27 WBC (4.8-10.8) K/ul RBC (4.63-6.08) M/uL Hgb (14.0-18.0) g/dl Hct (40.1-51.0) % MCV (80.0-100.0) fL MCH (25.0-34.0) pg MCHC (32.0-36.0) g/dL RDW Std Deviation (36.4-46.3) fL RDW Coeff of Pepe (11.5-14.5) % Plt Count (130-400) K/uL MPV (9.4-12.4) fL Immature Gran % (Auto) % Neut % (Auto) % Lymph % (Auto) % Ford % (Auto) % Eos % (Auto) % Baso % (Auto) % Neut # (Auto) (1.4-6.5) K/uL Lymph # (Auto) (1.2-3.4) K/uL Ford # (Auto) (0.24-0.82) K/uL Eos # (Auto) (0-0.50) K/uL Baso # (Auto) (0-0.2) K/uL Immature Gran # (Auto) (0.00-0.02) K/uL Haptoglobin (43-212) mg/dL Sodium 135 L (136-145) mmol/L Potassium 4.3 (3.5-5.1) mmol/L Chloride 100 (98-107) mmol/L Carbon Dioxide 30 (21-32) mmol/L Anion Gap 5 (3-11) BUN 21 (6-23) mg/dl Creatinine 1.14 (0.6-1.4) mg/dl Est Cr Clr Drug Dosing 39.0 ml/min Est GFR ( Amer) 66.2 ml/min Est GFR (Non-Af Amer) 57.1 ml/min Fasting Glucose 91 (70-99) mg/dl Calcium 8.9 (8.5-10.1) mg/dl Phosphorus 3.3 (2.5-4.9) mg/dl Magnesium 1.8 (1.7-2.4) mg/dl Iron 24 L (35-175) mcg/dl TIBC 222 L (250-450) mcg/dl Unsaturated IBC 198 (155-355) mcg/dl Transferrin % Sat 11 L (20-50) % Ferritin 220.3 (8-388) ng/ml Total Bilirubin 0.4 (0.2-1.0) mg/dl AST 15 (13-39) U/L ALT 15 (7-52) U/L Alkaline Phosphatase 52 (34-104) U/L Total Protein 5.0 L (6.0-8.3) gm/dl Albumin 2.7 L (3.4-5.0) gm/dl Globulin 2.3 L (2.5-4.0) gm/dl Albumin/Globulin Ratio 1.2 (0.9-2) Vitamin B12 227 (180-914) pg/ml Folate > 22.30 (>5.38) ng/ml Stool Occult Bld Scrn (Negative) 01/02/22 01/01/22 12/31/21 Range/Units 05:27 21:52 05:48 WBC 8.66 (4.8-10.8) K/ul RBC 2.62 L (4.63-6.08) M/uL Hgb 8.5 L (14.0-18.0) g/dl Hct 25.2 L (40.1-51.0) % MCV 96.2 (80.0-100.0) fL MCH 32.4 (25.0-34.0) pg MCHC 33.7 (32.0-36.0) g/dL RDW Std Deviation 45.1 (36.4-46.3) fL RDW Coeff of Pepe 12.9 (11.5-14.5) % Plt Count 189 (130-400) K/uL MPV 10.2 (9.4-12.4) fL Immature Gran % (Auto) 0.5 % Neut % (Auto) 78.1 % Lymph % (Auto) 6.6 % Ford % (Auto) 11.8 % Eos % (Auto) 2.8 % Baso % (Auto) 0.2 % Neut # (Auto) 6.77 H (1.4-6.5) K/uL Lymph # (Auto) 0.57 L (1.2-3.4) K/uL Ford # (Auto) 1.02 H (0.24-0.82) K/uL Eos # (Auto) 0.24 (0-0.50) K/uL Baso # (Auto) 0.02 (0-0.2) K/uL Immature Gran # (Auto) 0.04 H (0.00-0.02) K/uL Haptoglobin 370 H (43-212) mg/dL Sodium (136-145) mmol/L Potassium (3.5-5.1) mmol/L Chloride (98-107) mmol/L Carbon Dioxide (21-32) mmol/L Anion Gap (3-11) BUN (6-23) mg/dl Creatinine (0.6-1.4) mg/dl Est Cr Clr Drug Dosing ml/min Est GFR ( Amer) ml/min Est GFR (Non-Af Amer) ml/min Fasting Glucose (70-99) mg/dl Calcium (8.5-10.1) mg/dl Phosphorus (2.5-4.9) mg/dl Magnesium (1.7-2.4) mg/dl Iron (35-175) mcg/dl TIBC (250-450) mcg/dl Unsaturated IBC (155-355) mcg/dl Transferrin % Sat (20-50) % Ferritin (8-388) ng/ml Total Bilirubin (0.2-1.0) mg/dl AST (13-39) U/L ALT (7-52) U/L Alkaline Phosphatase (34-104) U/L Total Protein (6.0-8.3) gm/dl Albumin (3.4-5.0) gm/dl Globulin (2.5-4.0) gm/dl Albumin/Globulin Ratio (0.9-2) Vitamin B12 (180-914) pg/ml Folate (>5.38) ng/ml Stool Occult Bld Scrn Negative (Negative) Diagnostic Findings Aspiration 01/02/22 10:00 ULTRASOUND-GUIDED FINE-NEEDLE ASPIRATION RIGHT UPPER LOBE LUNG/CHEST WALL CLINICAL HISTORY: Right upper lobe lung/chest wall mass. COMPARISON STUDY: Chest CT dated 12/25/2021. PROCEDURE: The risks, benefits, and alternatives to the procedure were discussed with the patient. Written informed consent was obtained. The patient was placed in the left lateral decubitus position in ultrasound, and the approximately 5.5 cm mass lesion in the posterior right upper lobe extending through the posterior chest wall was localized by ultrasound and selected for fine needle aspiration. The right upper back was prepped and draped in the usual sterile fashion. 1% lidocaine was used for local anesthetic. The lesion was aspirated under ultrasound guidance with 3 passes utilizing 25-gauge needles. Specimens were reviewed by the pathologist in real-time and deemed adequate for diagnosis. The patient tolerated the procedure well and left the department in satisfactory condition. IMPRESSION: Completed fine-needle aspiration of a right upper lobe lung/chest wall mass as above. ACT 112: Negative or not required by law. Electronically signed by: Shaun Barreto M.D. 01/02/2022 11:12 AM Chest X-Ray 01/02/22 11:09 INSPIRATORY/EXPIRATORY CHEST X-RAY CLINICAL HISTORY: Status post right chest wall/lung biopsy. FINDINGS: AP, portable, upright chest radiographs are performed in inspiration and expiration and compared to chest x-ray and chest CT dated 12/25/2021. The heart is mildly enlarged noting atherosclerotic calcification of the thoracic aorta. The pulmonary vasculature is noncongested. Emphysematous change is again noted. Again seen is a 6 mm mass lesion at the right apex with destruction of the posterior fourth and fifth ribs. Scarring/atelectasis is noted at both lung bases. There is no airspace consolidation typical for pneumonia. No pneumothorax is seen. The skeletal structures are osteopenic. IMPRESSION: 1. No pneumothorax is seen post procedure. 2. Cardiomegaly and emphysema. 3. A right apical lung mass with associated rib destruction is unchanged. ACT 112: Negative or not required by law. Electronically signed by: Shaun Barreto M.D. 01/02/2022 12:21 PM PG Care Time/CCT Total # of Minutes Spent Total Time Spent with Patient: Total time spent is greater than 50% in coordination of care (as documented) at patient's floor/unit and/or counseling patient: Coding Level of Care Code 37468 Subseq Hosp Care Lvl 3 Diagnoses Respiratory failure with hypoxia J96.91 Elevated troponin R77.8 Lung cancer C34.90 Seizure prophylaxis Z29.8 HTN (hypertension) I10 COPD with emphysema J43.9 Peripheral arterial disease I73.9 Chronic kidney disease, stage III (moderate) N18.3 Hypercholesterolemia E78.00 Retinal detachment H33.20 Dysphagia R13.10 PNA (pneumonia) J18.9 Anemia D64.9
--- NOTE | 2022-01-02 14:06 | Pulmonary Consultation ---
Date of Consultation January 02, 2022 Assessment & Plan (1) LLL pneumonia: (2) Pulmonary mass: (3) COPD with emphysema: (4) Ex-smoker: Plan CT chest 12/25/2021 personally reviewed: 4 cm right upper lobe pulmonary nodule Centrilobular and paraseptal emphysema bilaterally No mediastinal lymphadenopathy PFT 02/22/21: Moderate COPD, insignificant bronchodilator response, normal TLC, moderate decrease in DLCO FVC 3.11 L 91%, FEV1 1.65 L 65%, FEV1/FVC 53%, RV 121%, TLC 107%, RV/TLC 115%, DLCO 46%, DLCO/VA 54% --Pulmonary Mass PET avid 02/16/21 In a patient who has significant smoking history Patient's case was discussed in lung conference February 2021 and was referred for IR guided biopsy Unfortunately patient had a fall and then did not follow-up on that Now the nodule has gone into a big mass. S/p ultrasound-guided biopsy 01/02/2022 MRI of the brain and CT abdomen pelvis was negative --COPD with emphysema Currently on Incruse PFT 02/22/21: Moderate COPD, insignificant bronchodilator response, normal TLC, moderate decrease in DLCO FVC 3.11 L 91%, FEV1 1.65 L 65%, FEV1/FVC 53%, RV 121%, TLC 107%, RV/TLC 115%, DLCO 46%, DLCO/VA 54% --Left lower lobe atelectasis versus pneumonia New compared to CT chest done 12/25/2021 Procalcitonin 0.2 Continue with antibiotic for at least 5 days --Exertional shortness of breath Secondary to above --Ex-smoker Greater than [id number] smoking history Quit in 1999 Encouraged to continue abstinence from smoking Plan: Right upper lobe pulmonary mass likely representing primary lung malignancy MRI of the brain was negative On the CT chest I do not see any mediastinal or hilar lymphadenopathy Oncology/radiation oncology requesting to see if there is any mediastinal involvement. I did discuss the case with Dr. Alcantar Patient's case is most likely being presented tomorrow at the cancer care conference. We will wait for the consensus of that conference If need be we will do a screening EBUS and if you find any nodule to be biopsied I discussed the case with Dr. Alcantar Please note the above document was generated using voice recognition software. It may contain grammatical, syntax or spelling errors.Any formal questions or concerns about the content, text or information contained within the body of this dictation should be directly addressed to the provider for clarification. History of Present Illness Attending Physician: Dalton Huang History of Present Illness 86-year-old male following with pulmonary for pulmonary nodule and COPD Past medical history: Hypertension, dyslipidemia, CKD stage III, GERD, dyslipidemia Patient was last seen by me in the clinic on 02/17/2021 He did not follow-up unfortunately I was last on the radar. Pulmonary were consulted on this admission to see if EBUS would be indicated to rule out mediastinal involvement. At the time of examination patient denies any issues with his breathing Denies any cough, no hemoptysis He has lost approximately 20 pounds in the last couple of months. He complains of right-sided chest pain where he had a biopsy done today. No fever or chills, no headache, no blurry vision. No dizziness, no nausea or vomiting Fair appetite right now Social history: > 52-dtsk-miac smoking history quit in 1999,social alcohol, denies any illicit drug use Pets: None Allergies: Seasonal Asthma: No personal or family history of asthma Lung cancer: No history of lung cancer in the family Allergies Allergy/AdvReac Type Severity Reaction Status Date / Time baclofen Allergy Unknown Unknown Verified 11/22/21 13:26 carvedilol Allergy Unknown Unknown Verified 11/22/21 13:26 clozapine Allergy Unknown unknown Verified 11/22/21 13:26 haloperidol Allergy Unknown unknown Verified 11/22/21 13:26 metoclopramide Allergy Unknown Unknown Verified 11/22/21 13:26 Phenothiazines Allergy Unknown unkonwn Verified 11/22/21 13:26 Home Medications Medication Instructions Recorded Confirmed Type multivitamin 1 tab PO QAM 02/11/18 11/22/21 History brimonidine 0.2 %-timolol 0.5 % 1 drops ophthalmic (eye) BID 11/12/18 11/22/21 History eye drops (Combigan) loratadine 10 mg tablet (Claritin) 10 mg PO DAILY PRN Allergy Symptoms 06/11/20 11/22/21 History psyllium husk 3.4 gram/5.4 gram 1 tbsp PO QAM 06/11/20 11/22/21 History oral powder (Metamucil) acetaminophen 325 mg capsule 650 mg PO Q4H PRN pain #100 caps 12/24/20 11/22/21 Rx aspirin 81 mg tablet,delayed 81 mg PO QAM 08/04/21 11/22/21 History release allopurinol 100 mg tablet 100 mg PO QDD #90 tabs 08/15/21 11/22/21 Rx omeprazole 20 mg capsule,delayed 20 mg PO QAM #90 caps 08/15/21 11/22/21 Rx release pravastatin 80 mg tablet 80 mg PO HS #90 tabs 08/15/21 11/22/21 Rx amlodipine 5 mg tablet 5 mg PO QDD #90 tabs 08/22/21 11/22/21 Rx levetiracetam 500 mg tablet 500 mg PO BID #60 tabs 09/16/21 11/22/21 Rx (Keppra) clonidine HCl 0.2 mg tablet See Rx Instructions PO HS #180 tabs 10/07/21 11/22/21 Rx hydrocodone 5 mg-acetaminophen 325 1 tab PO TID PRN pain #90 tabs 11/29/21 Rx mg tablet prednisone 10 mg tablets in a dose See Rx Instructions .Route 11/29/21 Rx pack .COMPLEX #42 ea Patient History Medical History Acid reflux TEMO (acute kidney injury) Benign prostatic hypertrophy Chronic kidney disease, stage III (moderate) no specialist per pt COPD with emphysema pt 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 Glaucoma Gouty arthritis prednisone taper 07/19/2021 by PCP for suspected gout, persistent discoloration and pain of toes-abnormal CTA with upcoming vascular surgery History of anesthesia reaction was confused, felt like his bed was on the wall, the clock was on the floor, after approx half hr, resolved History of blood transfusion 2010 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 [facility] complete Hypercholesterolemia Hypertension Impaired fasting glucose 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, fall in setting of seizure activity, HTN; follows with [facility] neuro d/c from neurosurgery: monitoring f/u imaging to further rule out vascular malformations and "aid in diagnosis of CAA should there be progression of micro-hemorrhages" Lumbar spinal stenosis Lung nodule Peripheral vascular disease Pulmonary hypertension mild 2018 echo Pulmonary nodule to have biopsy through [facility] IR 03/2021, not yet completed per records Retinal detachment Sacroiliitis Sciatica of left side gets steroid injections Seizure 03/02/2021, fall in setting of seizure activity, HTN; follows with [facility] neuro d/c from neurosurgery: monitoring f/u imaging to further rule out vascular malformations and "aid in diagnosis of CAA should there be progression of micro-hemorrhages" Skin lesion of left ear 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 Post-op anesthesia progress note: "...was hypertensive on arrival to PACU so was treated with labetalol. He remains hypertensive but his blood pressure is lower than it was at his preoperative baseline. His other vital signs are stable." H/O aorto-femoral bypass (~2009) [address] Alfaro H/O transurethral resection of prostate History of colonoscopy History of esophagogastroduodenoscopy (EGD) with dilation Hx of non-cataract eye surgery left eye x3 for retina issues Loss of teeth due to extraction Status post aortic bifurcation bypass graft History of Bypass Graft (Non-Vein) Aortic-bifemoral > 2009 > [facility] Status post appendectomy Status post cataract surgery bilat Status post tonsillectomy and adenoidectomy Family History Sister Breast cancer Diabetes Father Parkinsons disease Prostate cancer Mother Diabetes Denies family history of Ovarian cancer Myocardial infarction Lung cancer Colorectal cancer Social History Smoking Status: Former smoker Tobacco Type: Cigarettes Age Started Using Tobacco: 14; Age Quit Using Tobacco: 64; packs per day: 1; Second Hand Exposure: No; Hx Alcohol Use: No Hx Substance Use: No Preferred Language: [place] Zealander Communication Ability: Effective Visual Impairment: Limited Hearing Ability: Normal Sharepoint Consultant Required: No Beliefs That Will Affect Care: None marital status: / Current Living Situation: Alone Current Living Situation Comment: Lives in own home and can live on one floor current occupational status: retired How many Children do You have: 4 Other Information That Helps Us Care for You: No Feels Safe at Home: Yes Safety Concerns: Feels Safe At This Time Childhood Exposure to Second-Hand Smoke: No caffeine: Yes Dental Care, Regularly: No Physical Activity Frequency: 5-6 Times per Week Seatbelt Use: always Sunscreen Use: No Assistive Devices: Hospital Bed, Scooter/Electric Scooter, Stair Lift, Walker and Wheelchair Review of Systems Review of Systems: All systems reviewed & are unremarkable except as noted in HPI & below Physical Exam Physical Exam: Constitutional: No acute distress HEENT: EOMI, PERRLA Respiratory system: Decreased air entry bilaterally, no wheeze, rhonchi, positive crackles bilateral lower lobes more on the left side CVS: S1-S2 positive, no murmurs or gallops Abdomen: Soft, nontender, nondistended, positive bowel sounds x4 Extremities: +2 pulses bilaterally radialis/ dorsalis pedis, no cyanosis, +2 pitting edema bilateral lower extremity Neuro: Awake alert oriented x3 Psych: Normal mood and affect G/U: No Castellanos Skin: no rashes, warm and dry Lymphatic: no cervical or axillary lymphadenopathy Results & Data Results & Data ([facility]) Vital Signs (Past 12 Hours) Vital Signs Temp Pulse Pulse Resp BP Pulse Ox O2 Del Method 01/02/22 07:00 70 01/02/22 11:10 36.6 C 75 18 126/63 98 Nasal Cannula 01/02/22 07:30 Nasal Cannula 01/02/22 08:31 36.7 C 86 20 126/55 L 95 Nasal Cannula 01/02/22 04:33 36.8 C 86 18 143/68 H 97 Nasal Cannula O2 Flow Rate 01/02/22 07:00 01/02/22 11:10 4 01/02/22 07:30 4 01/02/22 08:31 4 01/02/22 04:33 4 Laboratory Results 01/02/22 05:27 01/02/22 05:27 PG Care Time/CCT Total # of Minutes Spent Total Time Spent with Patient: Total time spent is greater than 50% in coordination of care (as documented) at patient's floor/unit and/or counseling patient: Coding Level of Care Code 89248 Initial Inpt Care Lvl 3 Diagnoses LLL pneumonia J18.9 Pulmonary mass R91.8 COPD with emphysema J43.9 Ex-smoker Z87.891
[2022-01-02] MEDS: CYANOCOBALAMIN (B-12) 500 MCG TABLET PO SCH (14:59)
[2022-01-02] MEDS: allopurinoL 100 MG TAB PO SCH (17:05)
[2022-01-02] MEDS: PRAVASTATIN SOD 40 MG TAB PO SCH (20:08)
[2022-01-03] MEDS: ACETAMINOPHEN 500 MG TAB PO SCH ×3 (00:31→16:30)
[2022-01-03] MEDS: AMPICILLIN/SULBACTAM SOD 3,000 MG in 0.9 % SODIUM CHLORIDE 100 ML IV SCH ×2 (03:49→08:59)
[2022-01-03 07:06] LABS: Hematocrit (blood only) 26.2 % (40.1-51.0); Hemoglobin 8.7 g/dl (14.0-18.0); Mean Corpuscular Hemoglobin 31.8 pg (25.0-34.0); Mean Corpuscular Hgb Conc 33.2 g/dL (32.0-36.0); Mean Corpuscular Volume 95.6 fL (80.0-100.0); Mean Platelet Volume 10.1 fL (9.4-12.4); Platelet Count 202 K/uL (130-400); RDW Coefficient of Variation 12.8 % (11.5-14.5); RDW Standard Deviation 44.3 fL (36.4-46.3); Red Blood Count 2.74 M/uL (4.63-6.08); White Blood Count 8.01 K/ul (4.8-10.8)
[2022-01-03 07:29] LABS: Albumin Globulin Ratio 1.1 (0.9-2); Albumin Level 2.7 gm/dl (3.4-5.0); BUN Creatinine Ratio 18.3 (10-20); Bilirubin,Total 0.4 mg/dl (0.2-1.0); Calcium 8.8 mg/dl (8.5-10.1); Creatinine Clr Calc Pharmacy 33.9 ml/min; Est GFR (African American) 55.9 ml/min; Est GFR (Non-African American) 48.3 ml/min; Globulin 2.5 gm/dl (2.5-4.0); Magnesium 1.8 mg/dl (1.7-2.4); Potassium 4.4 mmol/L (3.5-5.1); Total Protein 5.2 gm/dl (6.0-8.3)
[2022-01-03] MEDS: LIDOCAINE 5% 1 PATCH TD SCH (07:32)
[2022-01-03] MEDS: UMECLIDINIUM BROMIDE 62.5MCG/BLISTER 7 PUFFS/INHALER INH SCH ×2 (07:33→07:49)
[2022-01-03] MEDS: FLUTICASONE/VILANTEROL 200/25MCG 14 PUFFS/INHALER INH SCH ×2 (07:33→07:48)
[2022-01-03] MEDS: POLYETHYLENE (MIRALAX) 17 GM PACK PO SCH (07:33)
[2022-01-03] MEDS: PANTOprazole 40 MG TAB PO SCH (07:33)
[2022-01-03] MEDS: cloNIDine HCL 0.1 MG TAB PO SCH ×2 (07:34→20:06)
[2022-01-03] MEDS: levETIRAcetam 500 MG TAB PO SCH ×2 (07:34→20:07)
[2022-01-03] MEDS: amLODIPine BESYLATE 5 MG TAB PO SCH (07:34)
[2022-01-03] MEDS: CYANOCOBALAMIN (B-12) 500 MCG TABLET PO SCH (07:34)
[2022-01-03] MEDS: ASPIRIN 81 MG ECTAB PO SCH (07:34)
[2022-01-03] MEDS: DOCUSATE SODIUM/SENNA 50/8.6MG TAB PO SCH (07:34)
[2022-01-03] MEDS: CHECK fentaNYL PATCH PLACEMENT SCH ×2 (07:35→16:26)
[2022-01-03] MEDS: BRIMONIDINE TARTRATE/TIMOLOL OP SCH ×2 (07:35→20:06)
[2022-01-03] MEDS: fentaNYL 12 MCG/HR TDSY TD SCH (07:39)
--- NOTE | 2022-01-03 07:50 | Hospitalist Progress Note ---
Date of Service January 03, 2022 Assessment & Plan (1) Respiratory failure with hypoxia: Plan: Patient with prior known SHAYY lesion however multiple falls/rib fx and seizures over the last year and never had follow-up/IR as previously recommended (80pack year) Came in with shortness of breath (underlying COPD) Imaging with RUL mass with invasion to adjacent posterior right fourth/fifth ribs with bone destruction (hypercalcemia on admit, repeat wnl) Heme/onc, radiation oncology consulted -- rec'd imaging to r/o metastatic disease Brain MRI negative for metastatic disease CTAP without evidence for metastatic disease in abdomen or pelvis Biopsy with radiology 01/02 -- Preliminary cytology with squamous cell carcinoma, final pending Discussed in cancer center rounds today --> no plans for inpatient bronchoscopy as initially recommended. Will need outpt f/u Continue Breo, Incruse --> needs new rx at discharge. Patient has refused these the past several days Speech eval'd while inpatient for episode of aspiration --> s/p GI EGD w/ dilation. suspected achalasia and outpatient manometry recommended --> Placed on Unasyn 12/29, continued and will switch to Augmentin for tonight and planned 7 days total --Added doxy BID 01/[address] Carmona -- will need 5 day course Anemia -- iron studies acute on chronic disease (likely related to malignancy). no bleeding reported -- folate wnl. B12 checked -- low normal and replacement ordered. --Hgb stable on repeat and continue B12 at d/c Titrate O2 as able to maintain sat 88% or better. Had been doing well afternoon 01/02 and increased needs (repeat CXR after bx without PTX) Continue incentive spirometer, flutter valve 2 step ordered to see about o2 needs at d/c. CM alerted if required and will assist with arranging As now without plans for need for bronch given lack of mediastinal lymphadenopathy, likely able to d/c tomorrow and outpatient follow-up Messaged Dr Alcantar to please call/update with daughter Corrina plans for at discharge as patient not best historian and she is his POA (2) Elevated troponin: Plan: No angina, likely demand ischemia; continue aspirin and statin; LV shows preserved ejection fraction No CP/SOB reported today (3) Lung cancer: Plan: With local invasion without distant metastases; Radiation oncology, heme/onc consulted 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, 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 Pain control --oxycodone prn, fentanyl patch 12mcg Q3D ordered and patient reports effectiveness Moving bowels daily Consider rx for at discharge short term and outpatient follow-up for treatment as above (4) Seizure prophylaxis: Plan: Following past intracranial bleed; continue Keppra (5) HTN (hypertension): Plan: BP stable 126/63 (had elevations earlier in stay reported to have been on 0.1mg BID clonidine) Continue amlodipine (suspect related to dependent edema as well, dopplers NEGATIVE on admit), clonidine (6) COPD with emphysema: Plan: continue Breo and LAMA; continue ipratropium albuterol avoided on account of tendency to sinus tachycardia Titrate O2 to maintain sats, 2step ordered for d/c planning (7) Peripheral arterial disease: Plan: Currently nonacute issue; continue aspirin and statin (8) Chronic kidney disease, stage III (moderate): Plan: Stable (9) Hypercholesterolemia: Plan: Continue statin (10) Retinal detachment: Plan: Continue home eyedrops; also history of macular degeneration has appointment on Sunday he DOES NOT want to miss --> daughter rescheduled (11) Dysphagia: Plan: Status post dilatation with EGD with Dr Vyas 12/28; outpatient manometry for possible achalasia Maintain aspiration precautions per speech eval, extra sauce/gravy (12) PNA (pneumonia): Plan: Not present on admission, suspected aspiration, on Unasyn as above Supplemental O2 as needed, titrate as able (13) Anemia: Plan: Impressive decline during the course; no clinical bleeding; added empiric PPI; fecal occult blood negative Haptoglobin elevated , likely related to underlying malignancy Iron studies w/ acute on chronic MERRITT (iron 24, trans % sat 11% however TIBC low at 222) could consider dose of venofer but will hold off for now Folate wnl B12 low normal, replacement ordered Hgb stable on repeat Plan continued inpatient stay will need outpt f/u Dr Alcantar, radiation/oncology, GI for manometry for suspected achalasia 2step ordered for next 24 hours as no plans for bronch and likely to be able to discharge tomorrow Admission and Anticipated Discharge Date Admission Date: December 25, 2021 Supervising Physician Co-Signing Physician Notes PA Supervision Note: I did not personally see or examine the patient today, but I verified all [place] points of AALIYAH Banuelos's assessment and plan with the following exceptions/additions: None Subjective Patient seen up in chair eating lunch. Requirement of supplemental oxygen this morning to maintain saturations (CXR with worsening of opacities), however patient denies feeling short of breath. Improvement and up to 98% up in the chair and encouraged continued incentive spirometer.Will add atypical coverage with doxycycline. He is unaware of wait for the bronchoscopy, discussed heme/onc discussing at conference this afternoon and further planning based on that. He has been attempting to call his daughter Diamond on the phone but his phone is only letting him contact his other daughter. Diamond just got him this new phone and having difficulty and wanted an "open, hello, goodbye" kind of phone. Called with update, awaiting to hear back this afternoon but did discuss if not planning for bronchoscopy can consider d/c in next day or so and have outpatient follow up. Questions/concerns addressed Review of Systems Review of Systems: All systems reviewed & are unremarkable except as noted in HPI & below Physical Exam Physical Exam: Constitutional: WD elderly male sitting up in chair eating lunch, no acute distress, no tachypnea or cough, breathing comfortably 98% on 3L NC HEENT: macular degeneration R eye, pupils equal in size, trachea midline without deviation Chest wall: R anterior/lateral tender to palpation, pain patch in place Resp: decreased air entry b/l, no wheezing, left lower lobe crackles>R, on 3L NC (asked RN to titrate) CV: RRR, no m/r/g, 1-2+ pitting edema b/l LE , calves nontender, pulses palpable GI:+BS nontender : no hudson MSK/Neuro: moves all extremities, no focal deficit, no slurred speech, answering questions appropriately Psych: AOx3 , pleasant and cooperative, wanting to know the plan from oncology Results & Data Results & Data ([facility]) Vital Signs (Past 12 Hours) Vital Signs Temp Pulse Pulse Resp BP Pulse Ox O2 Del Method 01/03/22 07:31 37.1 C 93 H 16 148/68 H 89 L Nasal Cannula 01/03/22 04:23 37.5 C 86 18 131/65 93 Nasal Cannula 01/02/22 22:54 78 01/02/22 22:46 37.0 C 80 18 106/59 L 92 Nasal Cannula O2 Flow Rate 01/03/22 07:31 3 01/03/22 04:23 3 01/02/22 22:54 01/02/22 22:46 3 Laboratory Results 01/03/22 01/03/22 01/03/22 Range/Units 06:43 06:43 06:43 WBC 8.01 (4.8-10.8) K/ul RBC 2.74 L (4.63-6.08) M/uL Hgb 8.7 L (14.0-18.0) g/dl Hct 26.2 L (40.1-51.0) % MCV 95.6 (80.0-100.0) fL MCH 31.8 (25.0-34.0) pg MCHC 33.2 (32.0-36.0) g/dL RDW Std Deviation 44.3 (36.4-46.3) fL RDW Coeff of Pepe 12.8 (11.5-14.5) % Plt Count 202 (130-400) K/uL MPV 10.1 (9.4-12.4) fL Sodium 137 (136-145) mmol/L Potassium 4.4 (3.5-5.1) mmol/L Chloride 101 (98-107) mmol/L Carbon Dioxide 28 (21-32) mmol/L Anion Gap 8 (3-11) BUN 24 H (6-23) mg/dl Creatinine 1.31 (0.6-1.4) mg/dl Est Cr Clr Drug Dosing 33.9 ml/min Est GFR ( Amer) 55.9 ml/min Est GFR (Non-Af Amer) 48.3 ml/min BUN/Creatinine Ratio 18.3 (10-20) Glucose 78 (70-99(Fasting)) mg/dl Calcium 8.8 (8.5-10.1) mg/dl Magnesium 1.8 (1.7-2.4) mg/dl Total Bilirubin 0.4 (0.2-1.0) mg/dl AST 15 (13-39) U/L ALT 13 (7-52) U/L Alkaline Phosphatase 52 (34-104) U/L Total Protein 5.2 L (6.0-8.3) gm/dl Albumin 2.7 L (3.4-5.0) gm/dl Globulin 2.5 (2.5-4.0) gm/dl Albumin/Globulin Ratio 1.1 (0.9-2) TSH 1.673 (0.300-4.500) uIu/ml PG Care Time/CCT Total # of Minutes Spent Total Time Spent with Patient: Total time spent is greater than 50% in coordination of care (as documented) at patient's floor/unit and/or counseling patient: Coding Level of Care Code 38424 Subseq Hosp Care Lvl 3 Diagnoses Respiratory failure with hypoxia J96.91 Elevated troponin R77.8 Lung cancer C34.90 Seizure prophylaxis Z29.8 HTN (hypertension) I10 COPD with emphysema J43.9 Peripheral arterial disease I73.9 Chronic kidney disease, stage III (moderate) N18.3 Hypercholesterolemia E78.00 Retinal detachment H33.20 Dysphagia R13.10 PNA (pneumonia) J18.9 Anemia D64.9
--- NOTE | 2022-01-03 08:11 | XRay Report ---
XR chest 1V portable HISTORY: s/p lung biopsy, hypoxia COMPARISON: Chest 01/02/2022. FINDINGS: No pneumothorax. The cardiac silhouette remains mildly enlarged. Progressive bibasilar patc hy airspace opacities. No evidence for pulmonary edema. Right upper lobe/chest wall mass again noted. Calcifications within the aortic knob. IMPRESSION: 1. Redemonstration of the right upper lobe/chest wall mass. 2. No pneumothorax. 3. Patchy bibasilar densities which have progressed in the interval. This could represent atelectasis or an aspiration pneumonia. ACT 112: Negative or not required by law. Electronically signed by: Hebert Dickson M.D. 01/03/2022 8:09 AM
--- NOTE | 2022-01-03 08:46 | Pulmonology Progress Note ---
Date of Service January 03, 2022 Assessment & Plan (1) LLL pneumonia: (2) Pulmonary mass: (3) COPD with emphysema: (4) Ex-smoker: Plan CT chest 12/25/2021 personally reviewed: 4 cm right upper lobe pulmonary nodule Centrilobular and paraseptal emphysema bilaterally No mediastinal lymphadenopathy PFT 02/22/21: Moderate COPD, insignificant bronchodilator response, normal TLC, moderate decrease in DLCO FVC 3.11 L 91%, FEV1 1.65 L 65%, FEV1/FVC 53%, RV 121%, TLC 107%, RV/TLC 115%, DLCO 46%, DLCO/VA 54% --Pulmonary Mass PET avid 02/16/21 In a patient who has significant smoking history Patient's case was discussed in lung conference February 2021 and was referred for IR guided biopsy Unfortunately patient had a fall and then did not follow-up on that Now the nodule has gone into a big mass. S/p ultrasound-guided biopsy 01/02/2022 MRI of the brain and CT abdomen pelvis was negative --COPD with emphysema Currently on Incruse PFT 02/22/21: Moderate COPD, insignificant bronchodilator response, normal TLC, moderate decrease in DLCO FVC 3.11 L 91%, FEV1 1.65 L 65%, FEV1/FVC 53%, RV 121%, TLC 107%, RV/TLC 115%, DLCO 46%, DLCO/VA 54% --Left lower lobe atelectasis versus pneumonia New compared to CT chest done 12/25/2021 Procalcitonin 0.2 Continue with antibiotic for at least 5 days --Exertional shortness of breath Secondary to above Continue with O2 to keep O2 saturation between 89-92% --Ex-smoker Greater than [id number] smoking history Quit in 1999 Encouraged to continue abstinence from smoking Plan: Patient's case was discussed today in the cancer conference. Given no significant mediastinal lymphadenopathy on the latest CTA, no need for bronchoscopy. Preliminary diagnosis of the biopsy from yesterday squamous cell Patient is supposed to follow-up with oncology as well as radiation oncology as an output Continue with antibiotics for total of 5 days, add atypical coverage for 5 days as well on top of that Check for need of oxygen on ambulation prior to discharge No further recommendation from pulmonary perspective. We will sign off. Please call directly with any questions Please note the above document was generated using voice recognition software. It may contain grammatical, syntax or spelling errors.Any formal questions or concerns about the content, text or information contained within the body of this dictation should be directly addressed to the provider for clarification. Admission and Anticipated Discharge Date Admission Date: December 25, 2021 Subjective Patient seen and family bedside. No acute distress, no adverse events overnight Does complain of pain in the right upper part of the back. Denies any chest pain, no shortness of breath No headache, no dizziness Review of Systems Review of Systems: All systems reviewed & are unremarkable except as noted in Subjective Physical Exam Physical Exam: Constitutional: No acute distress HEENT: EOMI, PERRLA Respiratory system: Decreased air entry bilaterally, no wheeze, rhonchi, positive crackles bilateral lower lobes more on the left side CVS: S1-S2 positive, no murmurs or gallops Abdomen: Soft, nontender, nondistended, positive bowel sounds x4 Extremities: +2 pulses bilaterally radialis/ dorsalis pedis, no cyanosis, +2 pit ting edema bilateral lower extremity Neuro: Awake alert oriented x3 Psych: Normal mood and affect G/U: No Castellanos Skin: no rashes, warm and dry Lymphatic: no cervical or axillary lymphadenopathy Results & Data Results & Data ([facility]) Vital Signs (Past 12 Hours) Vital Signs Temp Pulse Pulse Resp BP Pulse Ox O2 Del Method 01/03/22 07:31 37.1 C 93 H 16 148/68 H 89 L Nasal Cannula 01/03/22 04:23 37.5 C 86 18 131/65 93 Nasal Cannula 01/02/22 22:54 78 01/02/22 22:46 37.0 C 80 18 106/59 L 92 Nasal Cannula O2 Flow Rate 01/03/22 07:31 3 01/03/22 04:23 3 01/02/22 22:54 01/02/22 22:46 3 Laboratory Results 01/03/22 06:43 01/03/22 06:43 PG Care Time/CCT Total # of Minutes Spent Total Time Spent with Patient: Total time spent is greater than 50% in coordination of care (as documented) at patient's floor/unit and/or counseling patient: Coding Level of Care Code 95655 Subseq Hosp Care Lvl 2 Diagnoses LLL pneumonia J18.9 Pulmonary mass R91.8 COPD with emphysema J43.9 Ex-smoker Z87.896
[2022-01-03] MEDS: oxyCODONE HCL IR 5 MG TAB (IMMEDIATE RELEASE) PO PRN ×2 (08:59→19:39)
[2022-01-03] MEDS: ENOXAPARIN INJ 40 MG/0.4 ML SYR SQ SCH (09:36)
[2022-01-03] MEDS ORDERED: FUROSEMIDE INJ 20 MG/2 ML VIAL IV ONE (10:42)
[2022-01-03] MEDS: DOXYCYCLINE HYCLATE 100 MG CAP PO SCH ×2 (13:55→20:07)
[2022-01-03] MEDS: allopurinoL 100 MG TAB PO SCH (16:31)
[2022-01-03] MEDS: AMOXICILLIN/CLAVULANATE 875 MG TAB PO SCH (17:06)
--- NOTE | 2022-01-03 19:23 | Progress Notes ---
DATE OF SERVICE: 01/03/2022 SUBJECTIVE: Denies any new complaints. Would like to go home as soon as possible. REVIEW OF SYSTEMS: Unremarkable. PHYSICAL EXAMINATION: Not performed. ASSESSMENT AND PLAN: Squamous cell carcinoma of the right lung. A pleasant 86-year-old gentleman with history of a right lung mass for which he recently had an ultrasound-guided biopsy, which revealed squamous cell carcinoma with PD-L1 testing pending. His case was discussed at cancer conference earlier today with plan to commence concurrent chemoradiation after he is discharged from the hospital. I had an extensive discussion with the patient and his daughter, Diamond (over the phone) regarding treatment options as well as overall prognosis. I explained to them that given the size of tumor mass as well as invasion of the chest wall and muscle, he is considered not to be a candidate for stereotactic radiation treatment at this time. Discussed the option of concurrent chemoradiation treatment with weekly carboplatin/paclitaxel with the patient, followed by one year of immunotherapy with durvalumab if he has good response to treatment. Discussed potential side effects of treatment. Following our discussion, the patient indicated that he would like to receive active treatment for his cancer with concurrent chemoradiation treatments. I also discussed option of palliative radiation treatment, which he declined. We will set him up for outpatient followup in oncology clinic as well as to start concurrent chemoradiation treatment. The patient's questions and that of his daughter's were answered to their satisfaction. Thank you for this consult. Oncology will sign off at this time to follow up with him on discharge. Please feel free to call if you have any further questions. Job ID: [id number] [facility]
[2022-01-03] MEDS: PRAVASTATIN SOD 40 MG TAB PO SCH (20:07)
[2022-01-04] MEDS: CHECK fentaNYL PATCH PLACEMENT SCH ×3 (00:24→17:02)
[2022-01-04] MEDS: oxyCODONE HCL IR 5 MG TAB (IMMEDIATE RELEASE) PO PRN ×4 (00:35→21:27)
[2022-01-04] MEDS: ACETAMINOPHEN 500 MG TAB PO SCH ×3 (00:35→17:02)
[2022-01-04 05:38] LABS: BUN Creatinine Ratio 19.7 (10-20); Calcium 8.8 mg/dl (8.5-10.1); Creatinine Clr Calc Pharmacy 33.6 ml/min; Est GFR (African American) 55.4 ml/min; Est GFR (Non-African American) 47.8 ml/min; Magnesium 1.8 mg/dl (1.7-2.4); Potassium 4.3 mmol/L (3.5-5.1)
[2022-01-04 05:58] LABS: Basophils # (auto) 0.03 K/uL (0-0.2); Basophils % (auto) 0.4 %; Eosinophils # (auto) 0.23 K/uL (0-0.50); Eosinophils % (auto) 3.3 %; Immature Granulocytes # (auto) 0.06 K/uL (0.00-0.02); Immature Granulocytes % (auto) 0.9 %; Lymphocytes # (auto) 0.76 K/uL (1.2-3.4); Lymphocytes % (auto) 10.9 %; Mean Corpuscular Hgb Conc 33.3 g/dL (32.0-36.0); Mean Platelet Volume 10.6 fL (9.4-12.4); Monocytes # (auto) 0.92 K/uL (0.24-0.82); Monocytes % (auto) 13.1 %; Neutrophils % (auto) 71.4 %; Platelet Count 219 K/uL (130-400); RDW Coefficient of Variation 12.7 % (11.5-14.5)
[2022-01-04] MEDS: ASPIRIN 81 MG ECTAB PO SCH (08:03)
[2022-01-04] MEDS: UMECLIDINIUM BROMIDE 62.5MCG/BLISTER 7 PUFFS/INHALER INH SCH (08:04)
[2022-01-04] MEDS: amLODIPine BESYLATE 5 MG TAB PO SCH (08:04)
[2022-01-04] MEDS: FLUTICASONE/VILANTEROL 200/25MCG 14 PUFFS/INHALER INH SCH (08:04)
[2022-01-04] MEDS: PANTOprazole 40 MG TAB PO SCH (08:04)
[2022-01-04] MEDS: levETIRAcetam 500 MG TAB PO SCH ×2 (08:04→21:31)
[2022-01-04] MEDS: CYANOCOBALAMIN (B-12) 500 MCG TABLET PO SCH (08:04)
[2022-01-04] MEDS: POLYETHYLENE (MIRALAX) 17 GM PACK PO SCH (08:05)
[2022-01-04] MEDS: DOXYCYCLINE HYCLATE 100 MG CAP PO SCH ×2 (08:05→21:31)
[2022-01-04] MEDS: cloNIDine HCL 0.1 MG TAB PO SCH ×2 (08:05→21:30)
[2022-01-04] MEDS: BRIMONIDINE TARTRATE/TIMOLOL OP SCH ×2 (08:06→21:30)
[2022-01-04] MEDS: ENOXAPARIN INJ 40 MG/0.4 ML SYR SQ SCH (08:07)
[2022-01-04] MEDS: DOCUSATE SODIUM/SENNA 50/8.6MG TAB PO SCH (08:08)
[2022-01-04] MEDS: LIDOCAINE 5% 1 PATCH TD SCH (08:08)
--- NOTE | 2022-01-04 08:21 | Hospitalist Progress Note ---
Date of Service January 04, 2022 Assessment & Plan (1) Respiratory failure with hypoxia: Plan: Patient with prior known SHAYY lesion however multiple falls/rib fx and seizures over the last year and never had follow-up/IR as previously recommended (80pack year) Came in with shortness of breath (underlying COPD) Imaging with RUL mass with invasion to adjacent posterior right fourth/fifth ribs with bone destruction (hypercalcemia on admit, repeat wnl) Heme/onc, radiation oncology consulted Brain MRI negative for metastatic disease CTAP without evidence for metastatic disease in abdomen or pelvis Biopsy with radiology 01/02 -- Preliminary cytology with squamous cell carcinoma, final pending Outpt f/u heme/onc and radiation next week -- they will arrange with patient Continue Breo, Incruse --> needs new rx at discharge. Patient has refused these the past several days, encouraged use Speech eval'd while inpatient for episode of aspiration * s/p GI EGD w/ dilation. suspected achalasia and outpatient manometry recommended * Placed on Unasyn 12/29 switched to Augmentin to complete 7 day course --Added doxy BID 01/[address] Carmona -- will need 5 day course 2step w/ 2L w/ ambulation, nothing at rest on 01/03. Rx for CM Hopeful discharge 01/05 (2) Anemia: Plan: Impressive decline during the course; no clinical bleeding; Hgb had been in the 10-11s range, was 9s prior to EGD/dilation discussed with hematology, ?bleeding from dilation GI did not feel the same, recs for iron replacement added empiric PPI and rx at d/c Haptoglobin elevated , likely related to underlying malignancy Iron studies w/ acute on chronic MERRITT (iron 24, trans % sat 11% however TIBC low at 222) B12 low normal, replacement ordered and continued at d/c Folate wnl No obvious bleeding, fecal occult negative Discussed with GI and recs for Iron replacement given hgb 8.0 on am labs Venofer 200mg IV x1 given, hgb --> 9.1?lab error Venofer 200mg IV for AM, repeat cbc (3) Elevated troponin: Plan: No angina, likely demand ischemia; continue aspirin and statin; LV shows preserved ejection fraction No CP/SOB reported today (4) Lung cancer: Plan: With local invasion without distant metastases; Radiation oncology, heme/onc consulted 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, 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 Pain control --oxycodone prn, fentanyl patch 12mcg Q3D ordered and patient reports effectiveness Prior auth for fentanyl today APPROVED THIS AFTERNOON Rxs for both at d/c, moving bowels (5) Seizure prophylaxis: Plan: Following past intracranial bleed; continue Keppra (6) HTN (hypertension): Plan: BP stable (had elevations earlier in stay reported to have been on 0.1mg BID clonidine) Continue amlodipine increased dose 10mg (suspect related to dependent edema as well, dopplers NEGATIVE on admit), clonidine (7) COPD with emphysema: Plan: continue Breo and LAMA; continue ipratropium albuterol avoided on account of tendency to sinus tachycardia Titrate O2 to maintain sats, 2step ordered for d/c planning and demonstrated need 2L w/ ambulation (8) Peripheral arterial disease: Plan: Currently nonacute issue; continue aspirin and statin (9) Chronic kidney disease, stage III (moderate): Plan: Stable (10) Hypercholesterolemia: Plan: Continue statin (11) Retinal detachment: Plan: Continue home eyedrops; also history of macular degeneration has appointment on Sunday he DOES NOT want to miss --> daughter rescheduled (12) Dysphagia: Plan: Status post dilatation with EGD with Dr Vyas 12/28; outpatient manometry for possible achalasia Maintain aspiration precautions per speech eval, extra sauce/gravy (13) PNA (pneumonia): Plan: Not present on admission, suspected aspiration, Unasyn switched to Augmentin to complete after today, doxycycline added day prior to complete 5 day course per pulm Supplemental O2 as needed, titrate as able Plan continued inpatient stay will need outpt f/u Dr Alcantar, radiation/oncology, GI for manometry for suspected achalasia 2step ordered for next 24 hours as no plans for bronch and likely to be able to discharge tomorrow Admission and Anticipated Discharge Date Admission Date: December 25, 2021 Supervising Physician Co-Signing Physician Notes PA Supervision Note: I did not personally see or examine the patient today, but I verified all [place] points of AALIYAH Banuelos's assessment and plan with the following exceptions/additions: None Subjective Patient evaluated this morning. Feeling well, ready for home. On 2L NC but asked RN to titrate off again today given 2 step yesterday. Discussed lower hgb, no bleeding reported. No hematomas. Pain controlled, awaiting prior auth for the fentanyl patch for pain control. Moving his bowels, no fever/chills, chest pain or shortness of breath. Review of Systems Review of Systems: All systems reviewed & are unremarkable except as noted in HPI & below Physical Exam Physical Exam: Constitutional: WD elderly male sitting up in chair eating breakfast, no acute distress, on 2L NC HEENT: macular degeneration R eye, pupils equal in size, trachea midline without deviation Chest wall: R anterior/lateral tender to palpation, pain patch in place Resp: improvement in air entry b/l, no wheezing, left lower lobe crackles>R, on 2L NC (asked RN to titrate) CV: RRR, no m/r/g, 1-2+ pitting edema b/l LE , calves nontender, pulses palpable GI:+BS nontender : no [place] MSK/Neuro: moves all extremities, no focal deficit, no slurred speech, answering questions appropriately Psych: AOx3 , pleasant and cooperative,anxious for discharge Results & Data Results & Data ([facility]) Vital Signs (Past 12 Hours) Vital Signs Temp Pulse Pulse Resp BP Pulse Ox O2 Del Method 01/04/22 07:30 36.7 C 76 20 152/65 H 92 Nasal Cannula 01/04/22 02:58 36.5 C 67 18 130/64 93 Nasal Cannula 01/03/22 23:59 73 01/03/22 23:22 36.7 C 79 18 131/67 91 Nasal Cannula O2 Flow Rate 01/04/22 07:30 2 01/04/22 02:58 2 01/03/22 23:59 01/03/22 23:22 2 Laboratory Results 01/04/22 01/04/22 01/04/22 Range/Units 12:36 12:36 04:51 WBC 7.73 (4.8-10.8) K/ul RBC 2.83 L (4.63-6.08) M/uL Hgb 9.1 L (14.0-18.0) g/dl Hct 27.8 L (40.1-51.0) % MCV 98.2 (80.0-100.0) fL MCH 32.2 (25.0-34.0) pg MCHC 32.7 (32.0-36.0) g/dL RDW Std Deviation 46.7 H (36.4-46.3) fL RDW Coeff of Pepe 12.9 (11.5-14.5) % Plt Count 225 (130-400) K/uL MPV 10.2 (9.4-12.4) fL Immature Gran % (Auto) % Neut % (Auto) % Lymph % (Auto) % [place] % (Auto) % Eos % (Auto) % Baso % (Auto) % Neut # (Auto) (1.4-6.5) K/uL Lymph # (Auto) (1.2-3.4) K/uL [place] # (Auto) (0.24-0.82) K/uL Eos # (Auto) (0-0.50) K/uL Baso # (Auto) (0-0.2) K/uL Immature Gran # (Auto) (0.00-0.02) K/uL Sodium 135 L 136 (136-145) mmol/L Potassium 4.4 4.3 (3.5-5.1) mmol/L Chloride 99 100 (98-107) mmol/L Carbon Dioxide 31 31 (21-32) mmol/L Anion Gap 5 5 (3-11) BUN 27 H 26 H (6-23) mg/dl Creatinine 1.27 1.32 (0.6-1.4) mg/dl Est Cr Clr Drug Dosing 35.0 33.6 ml/min Est GFR ( Amer) 58.1 55.4 ml/min Est GFR (Non-Af Amer) 50.1 47.8 ml/min BUN/Creatinine Ratio 21.3 H 19.7 (10-20) Glucose 107 H 101 H (70-99(Fasting)) mg/dl Calcium 9.3 8.8 (8.5-10.1) mg/dl Magnesium 1.8 (1.7-2.4) mg/dl 01/04/22 Range/Units 04:51 WBC 7.00 (4.8-10.8) K/ul RBC 2.50 L (4.63-6.08) M/uL Hgb 8.0 L (14.0-18.0) g/dl Hct 24.0 L (40.1-51.0) % MCV 96.0 (80.0-100.0) fL MCH 32.0 (25.0-34.0) pg MCHC 33.3 (32.0-36.0) g/dL RDW Std Deviation 44.0 (36.4-46.3) fL RDW Coeff of Pepe 12.7 (11.5-14.5) % Plt Count 219 (130-400) K/uL MPV 10.6 (9.4-12.4) fL Immature Gran % (Auto) 0.9 % Neut % (Auto) 71.4 % Lymph % (Auto) 10.9 % [place] % (Auto) 13.1 % Eos % (Auto) 3.3 % Baso % (Auto) 0.4 % Neut # (Auto) 5.00 (1.4-6.5) K/uL Lymph # (Auto) 0.76 L (1.2-3.4) K/uL [place] # (Auto) 0.92 H (0.24-0.82) K/uL Eos # (Auto) 0.23 (0-0.50) K/uL Baso # (Auto) 0.03 (0-0.2) K/uL Immature Gran # (Auto) 0.06 H (0.00-0.02) K/uL Sodium (136-145) mmol/L Potassium (3.5-5.1) mmol/L Chloride (98-107) mmol/L Carbon Dioxide (21-32) mmol/L Anion Gap (3-11) BUN (6-23) mg/dl Creatinine (0.6-1.4) mg/dl Est Cr Clr Drug Dosing ml/min Est GFR ( Amer) ml/min Est GFR (Non-Af Amer) ml/min BUN/Creatinine Ratio (10-20) Glucose (70-99(Fasting)) mg/dl Calcium (8.5-10.1) mg/dl Magnesium (1.7-2.4) mg/dl PG Care Time/CCT Total # of Minutes Spent Total Time Spent with Patient: Total time spent is greater than 50% in coordination of care (as documented) at patient's floor/unit and/or counseling patient: Coding Level of Care Code 65610 Subseq Hosp Care Lvl 3 Diagnoses Respiratory failure with hypoxia J96.91 Anemia D64.9 Elevated troponin R77.8 Lung cancer C34.90 Seizure prophylaxis Z29.8 HTN (hypertension) I10 COPD with emphysema J43.9 Peripheral arterial disease I73.9 Chronic kidney disease, stage III (moderate) N18.3 Hypercholesterolemia E78.00 Retinal detachment H33.20 Dysphagia R13.10 PNA (pneumonia) J18.9
[2022-01-04] MEDS: AMOXICILLIN/CLAVULANATE 875 MG TAB PO SCH ×2 (08:35→17:03)
[2022-01-04] MEDS ORDERED: IRON SUCROSE 200 MG in 0.9 % SODIUM CHLORIDE 100 ML IV ONE (09:00)
[2022-01-04 12:52] LABS: Hematocrit (blood only) 27.8 % (40.1-51.0); Hemoglobin 9.1 g/dl (14.0-18.0); Mean Corpuscular Hemoglobin 32.2 pg (25.0-34.0); Mean Corpuscular Hgb Conc 32.7 g/dL (32.0-36.0); Mean Corpuscular Volume 98.2 fL (80.0-100.0); Mean Platelet Volume 10.2 fL (9.4-12.4); Platelet Count 225 K/uL (130-400); RDW Coefficient of Variation 12.9 % (11.5-14.5); RDW Standard Deviation 46.7 fL (36.4-46.3); Red Blood Count 2.83 M/uL (4.63-6.08); White Blood Count 7.73 K/ul (4.8-10.8)
[2022-01-04 13:17] LABS: BUN Creatinine Ratio 21.3 (10-20); Calcium 9.3 mg/dl (8.5-10.1); Est GFR (African American) 58.1 ml/min; Est GFR (Non-African American) 50.1 ml/min; Potassium 4.4 mmol/L (3.5-5.1)
[2022-01-04] MEDS: allopurinoL 100 MG TAB PO SCH (17:03)
[2022-01-04] MEDS: PRAVASTATIN SOD 40 MG TAB PO SCH (21:31)
[2022-01-04 22:53] VITALS: TEMP 97.9
[2022-01-05] MEDS: CHECK fentaNYL PATCH PLACEMENT SCH ×2 (01:08→09:12)
[2022-01-05] MEDS: ACETAMINOPHEN 500 MG TAB PO SCH ×2 (01:08→09:09)
[2022-01-05 04:48] LABS: Hematocrit (blood only) 25.8 % (40.1-51.0); Hemoglobin 8.6 g/dl (14.0-18.0); Mean Corpuscular Hemoglobin 32.1 pg (25.0-34.0); Mean Corpuscular Hgb Conc 33.3 g/dL (32.0-36.0); Mean Corpuscular Volume 96.3 fL (80.0-100.0); Mean Platelet Volume 10.1 fL (9.4-12.4); Platelet Count 216 K/uL (130-400); RDW Coefficient of Variation 12.9 % (11.5-14.5); RDW Standard Deviation 45.4 fL (36.4-46.3); Red Blood Count 2.68 M/uL (4.63-6.08); White Blood Count 6.86 K/ul (4.8-10.8)
[2022-01-05 05:18] LABS: BUN Creatinine Ratio 20.8 (10-20); Est GFR (African American) 62.2 ml/min; Est GFR (Non-African American) 53.7 ml/min; Magnesium 1.7 mg/dl (1.7-2.4); Potassium 4.3 mmol/L (3.5-5.1)
[2022-01-05] MEDS ORDERED: IRON SUCROSE 200 MG in 0.9 % SODIUM CHLORIDE 100 ML IV SCH (06:00)
[2022-01-05] MEDS: oxyCODONE HCL IR 5 MG TAB (IMMEDIATE RELEASE) PO PRN (06:46)
[2022-01-05 07:35] VITALS: O2SAT 90
[2022-01-05] MEDS: CYANOCOBALAMIN (B-12) 500 MCG TABLET PO SCH (09:09)
[2022-01-05] MEDS: cloNIDine HCL 0.1 MG TAB PO SCH (09:09)
[2022-01-05] MEDS: AMOXICILLIN/CLAVULANATE 875 MG TAB PO SCH (09:09)
[2022-01-05] MEDS: DOXYCYCLINE HYCLATE 100 MG CAP PO SCH (09:09)
[2022-01-05] MEDS: PANTOprazole 40 MG TAB PO SCH (09:10)
[2022-01-05] MEDS: amLODIPine BESYLATE 5 MG TAB PO SCH (09:10)
[2022-01-05] MEDS: ASPIRIN 81 MG ECTAB PO SCH (09:10)
[2022-01-05] MEDS: ENOXAPARIN INJ 40 MG/0.4 ML SYR SQ SCH (09:10)
[2022-01-05] MEDS: BRIMONIDINE TARTRATE/TIMOLOL OP SCH (09:10)
[2022-01-05] MEDS: DOCUSATE SODIUM/SENNA 50/8.6MG TAB PO SCH (09:11)
[2022-01-05] MEDS: LIDOCAINE 5% 1 PATCH TD SCH (09:11)
[2022-01-05] MEDS: FLUTICASONE/VILANTEROL 200/25MCG 14 PUFFS/INHALER INH SCH (09:11)
[2022-01-05] MEDS: UMECLIDINIUM BROMIDE 62.5MCG/BLISTER 7 PUFFS/INHALER INH SCH (09:11)
[2022-01-05] MEDS: levETIRAcetam 500 MG TAB PO SCH (09:11)
[2022-01-05] MEDS: POLYETHYLENE (MIRALAX) 17 GM PACK PO SCH (09:12)
--- NOTE | 2022-01-05 09:47 | Discharge Summary ---
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 Patient had tumor board evaluation in Mar 03. Patient was to have IR biopsy completed in 04/03 but failed to make it to appointment following the above fall with [facility]. Patient has also been being treated requiring surgical intervention with bilateral angioplasty and stenting of his right SFA ~09/02. Patient has been following up with PCP and pain management for thoracic pain which he was recently treated with oral steroids, just completing this course yesterday. Patient comes to the EMD today for acute onset of difficulty breathing, patient states this started this morning around 10 o'clock and got progressively worse. He denies any chest pain or trauma. States that he just felt like he couldn't get a breath in or catch his breath. In the EMD the patient arrived tachypneic, tachycardic, hypertensive, and hypoxic to 89. He was placed to BiPAP, had CXR completed and CTA of his chest. CTA of the chest was negative for pulmonary embolism and for any infectious process or pulmonary edema. However the the right upper lobe pulmonary mass increased in size now measuring 5.3 x 4.2 also invading the ribs with destruction of bone. For his elevated blood pressure he was given Labetalol IV and placed on nitro-paste. For his dyspnea he was given 40mg IV methylprednisone. Patient's BP downtrending, patient feels his breath ing is markedly improved since he arrived. Will continue to lower blood pressure and likely be able to lower his pulmonary support with such. Pain control and re-engage services in evaluating/biopsying this lung mass. COVID test on admission is: NEGATIVE Admission Exam Per Admitting Provider PHYSICAL EXAM: General: awake, alert, no apparent distress Head: Normocephalic, atraumatic ENT: PERRLA, EOMI, no pharyngeal exudate, mucous membranes dry Neuro: AAO x 3, speech clear and appropriate, strength intact bilaterally 5/5, sensation intact and equal all extremities and dermatomes, no pronator drift Chest: equal rise and fall of the chest, decreased in bases, no wheeze, no rhonchi, Cardiac: Regular rate and rhythm, telemetry reviewed, skin warm dry, cap refill <3 seconds, peripheral pulses +2 no JVD, no murmur, no edema GI: NABS x 4 quadrants, soft, nontender to palpation, no rebound, guarding or tenderness : Spontaneously voiding, no pain, no CVA tenderness, Extremities: Normal inspection, no peripheral edema or erythema, calfs nontender to palpation Psych: Normal mood and affect Skin: no rash or erythema Principal Diagnosis Lung Cancer, Aspiration Pneumonia Discharge Exam Constitutional: WD elderly male sitting up in chair eating breakfast, no acute distress, on 2L NC HEENT: macular degeneration R eye, ?ptosis of left eye, pupils equal in size, trachea midline without deviation Chest wall: R anterior/lateral ribs tender to palpation, pain patch in place Resp: improvement in air entry b/l, no wheezing, left lower lobe crackles>R, on room air SpO2 90% CV: RRR, no m/r/g, 1+ pitting edema b/l LE (chronic, increased amlodipine?) , calves nontender, pulses palpable GI:+BS nontender : no hudson MSK/Neuro: moves all extremities, no focal deficit, no slurred speech, answering questions appropriately Psych: AOx3 , pleasant and cooperative,anxious for discharge Discharge Data Allergies Allergy/AdvReac Type Severity Reaction Status Date / Time baclofen Allergy Unknown Unknown Verified 11/22/21 13:26 carvedilol Allergy Unknown Unknown Verified 11/22/21 13:26 clozapine Allergy Unknown unknown Verified 11/22/21 13:26 haloperidol Allergy Unknown unknown Verified 11/22/21 13:26 metoclopramide Allergy Unknown Unknown Verified 11/22/21 13:26 Phenothiazines Allergy Unknown unkonwn Verified 11/22/21 13:26 Consultations 12/25/21 16:32 ED Decision to Admit Stat 12/26/21 08:05 Consult Oncology Routine 12/27/21 10:26 Consult Gastroenterology Routine 12/29/21 16:11 Consult Radiation Oncology Routine 01/02/22 13:54 Consult Pulmonology Routine Procedures Performed Operation Date: 12/28/21 17:10 Actual Procedures p EGD Sue - Alex Vyas MD Ordered Studies Chest X-Ray 12/25/21 15:00 XR chest 1V portable CLINICAL HISTORY: Chest Pain. COMPARISON STUDY: 12/04/2020 TECHNIQUE: 1 view of the chest FINDINGS: Single frontal view of the chest demonstrates the cardiomediastinal silhouette to be within normal limits. The lungs are clear of alveolar opacities. There is no evidence for pleural effusion. There is no evidence for vascular congestion. There is no acute osseous pathology. IMPRESSION: 1. No acute cardiopulmonary disease. ACT 112: Negative or not required by law. Electronically signed by: Terry Mccoy M.D. 12/25/2021 3:44 PM Chest CTA 12/25/21 15:01 CT angio chest PE protocol CLINICAL HISTORY: sob and chest pain. History of right upper lobe nodule COMPARISON STUDY: Portable chest from 07/25/[address] chest from 03/02/[address]21 CT DOSE: 319.92 mGy.cm TECHNIQUE: CT Angio of the chest was performed.followed by image post processing with coronal, and sagittal MIP reformats. Contrast Volume: Optiray 300, 117 ml FINDINGS: Vasculature: There is homogeneous perfusion of the pulmonary vasculature bilaterally. No intraluminal filling defects or evidence for pulmonary embolus is seen. Airway: The airway is clear. No endobronchial lesion is identified. Lungs: Compared to the previous CT, there has been interval development of large right upper lobe soft tissue mass measuring 5.3 x 4.2 cm. On further review, it can be seen radiographically. It invades the posterior fourth and fifth ribs with cortical destruction present. The remainder of the lungs are clear of acute alveolar opacities, air bronchograms or additional pathologic pulmonary nodules. Pleura: There is no evidence for pleural effusion. There is no evidence for pne umothorax. Mediastinum: There is no evidence for pathologic adenopathy. The heart size is within normal limits. Coronary artery calcifications present. The thoracic aorta is within normal limits. There is no evidence for pericardial effusion. Upper abdomen: The adrenal glands are normal bilaterally. Osseous structures: There is no acute osseous pathology. Impression: 1. No CTA evidence for pulmonary embolus. 2. Compared to the previous CT examination, right upper lobe pulmonary nodule has significantly increased in size measuring 5.2 cm. The findings are characteristic of lung cancer. 3. The right upper lobe mass invades the adjacent posterior right fourth and fifth ribs with bone destruction present. ACT 112: Negative or not required by law. Electronically signed by: Terry Mccoy M.D. 12/25/2021 4:22 PM Venous Doppler Study 12/25/21 17:16 US venous doppler LE RT CLINICAL HISTORY: Right lower extremity edema COMPARISON: None available at the time of this dictation. TECHNIQUE: Right lower extremity real-time compression venous ultrasound with Color Doppler imaging. Utilizing real-time ultrasonic imaging multiple real time high-resolution ultrasonic images with compression and noncompression maneuvers of the deep venous system in addition to color doppler imaging were performed from the common femoral vein through the proximal calf veins. FINDINGS: Currently there is normal compressibility of the deep venous system from the common femoral vein through the proximal calf veins. No current evidence of acute thrombosis is identified. Impression: 1. No evidence of deep venous thrombus. ACT 112: Negative or not required by law. Electronically signed by: Terry Mccoy M.D. 12/25/2021 6:49 PM 12/26/21 ECHOCARDIOGRAM The left ventricle is hyperdynamic. No segmental left ventricular wall motion abnormalities. Mild concentric LVH. EF >70%. Compared with study 07/2021, no sign ificant change Abdomen/Pelvis CT 12/28/21 17:00 CT OF THE ABDOMEN AND PELVIS WITH CONTRAST CLINICAL HISTORY: Lung cancer, staging scans per oncology COMPARISON STUDY: CT of the abdomen and pelvis March 02, 2021. CTA of the abdomen and pelvis with runoff August 01, 2021. Chest CT December 25, 2021. TECHNIQUE: Following IV administration of 88 mL of Optiray, axial images of the abdomen and pelvis were obtained from the lung bases to the proximal femurs. Images were reviewed in the axial, sagittal, and coronal planes. IV contrast was administered without complication. Automated exposure control was utilized for the study. A dose lowering technique was utilized adhering to the principles of ALARA. CT DOSE: 599.99 mGycm FINDINGS: Emphysema is noted within the lower lungs. Moderate left lower lobe consolidation has developed since recent chest CT of December 25, 2021. There is mild right lower lobe airspace opacity. No pneumatosis, free air or portal venous gas is present. There is cardiomegaly. Healing right 10th rib fracture is noted. Numerous hepatic cysts are present. There is no biliary or pancreatic ductal dilatation. Spleen, adrenal glands are unremarkable. Subcentimeter bilateral renal lesions are too small to characterize. There is no hydronephrosis. Scarring within the lower pole of the right kidney is noted. Multiple duodenal diverticula are present. There is no evidence for a bowel obstruction. Colonic diverticulosis is noted without evidence for acute diverticulitis. No abdominal or pelvic lymphadenopathy is present. Bladder is distended and contains contrast from prior contrast enhanced CT. Hyperdense foci within the prostate favor foci of enhancement. This is nonspecific. Right hip arthroplasty is present. Aortobifemoral bypass graft is noted. Limbs appear patent. No suspicious skeletal lesions are identified. IMPRESSION: 1. No evidence of metastatic disease within the abdomen or pelvis. 2. Left lower lobe airspace opacity which has developed since recent chest CT of December 25, 2021. This suggests pneumonia. 3. Distended bladder. 4. Colonic diverticulosis. No evidence for acute diverticulitis. ACT 112: Negative or not required by law. Electronically signed by: Jm Dallas M.D. 12/28/2021 9:05 PM Brain MRI 12/28/21 17:00 Brain MRI WITH AND WITHOUT CONTRAST HISTORY: Headaches. Lung cancer, staging MRI per oncology TECHNIQUE: Multiplanar multisequence MRI of the brain was performed both before and after the intravenous administration of contrast. COMPARISON STUDY: Head CT 03/02/2021. Brain MRI 12/15/2017. PET CT 02/16/2021. FINDINGS: There is no mass, hematoma, midline shift, or acute infarct. The paranasal sinuses are clear. The mastoid air cells are clear. The ventricles and sulci demonstrate mild age-related involutional changes. Scattered foci of T2 hyperintensity seen within the periventricular and subcortical white matter are nonspecific but suggestive of mild microvascular ischemic changes. The major vascular flow voids at the skull base are well-maintained. There are 2 small foci of susceptibility artifact within the left posterior parietal lobe consistent with sites of old hemorrhage. Hyperdense material again noted within the left globe. This remains unchanged. Punctate old lacunar infarcts within the pipo and left cerebellar hemisphere. There is an additional small focus of encephalomalacia within the high convexity the right frontal lobe with associated gliosis. This also favors an old infarct. No abnormal enhancement. IMPRESSION: 1. No evidence for intracranial metastatic disease. 2. Chronic changes as described above. ACT 112: Negative or not required by law. Electronically signed by: Hebert Dickson M.D. 12/29/2021 9:39 AM Bone Scan Nuclear Medicine 12/29/21 13:00 WHOLE-BODY NUCLEAR BONE SCAN CLINICAL HISTORY: Lung cancer. COMPARISON STUDY: Chest CT dated 12/25/2021. CT scan of the abdomen and pelvis dated 12/28/2021. TECHNIQUE: Three hours following the IV administration of 24.9 mCi of technetium 99m MDP, whole body nuclear bone scan was performed in the anterior and posterior projections. FINDINGS: There is focal abnormal activity within the right posterior fourth and fifth ribs. This is related to direct bony invasion when correlated with the chest CT. No additional foci of abnormal tracer uptake are seen throughout the skeleton typical for bony metastatic disease. A photopenic defect is consistent with a right hip arthroplasty. Typically degenerative uptake is identified shoulders, ankles, and the left foot. Low- level and typically degenerative activity is also seen in both the cervical and lumbar spine. There is expected excreted activity within the renal collecting system and bladder. IMPRESSION: 1. Abnormal activity within the right posterior fourth and fifth ribs is related to direct tumor invasion when correlated with the recent chest CT. 2. There is no evidence of distant osseous metastatic disease. ACT 112: Negative or not required by law. Electronically signed by: Shaun Barreto M.D. 12/29/2021 3:30 PM Aspiration 01/02/22 10:00 ULTRASOUND-GUIDED FINE-NEEDLE ASPIRATION RIGHT UPPER LOBE LUNG/CHEST WALL CLINICAL HISTORY: Right upper lobe lung/chest wall mass. COMPARISON STUDY: Chest CT dated 12/25/2021. PROCEDURE: The risks, benefits, and alternatives to the procedure were discussed with the patient. Written informed consent was obtained. The patient was placed in the left lateral decubitus position in ultrasound, and the approximately 5.5 cm mass lesion in the posterior right upper lobe extending through the posterior chest wall was localized by ultrasound and selected for fine needle aspiration. The right upper back was prepped and draped in the usual sterile fashion. 1% lidocaine was used for local anesthetic. The lesion was aspirated under ultrasound guidance with 3 passes utilizing 25-gauge needles. Specimens were reviewed by the pathologist in real-time and deemed adequate for diagnosis. The patient tolerated the procedure well and left the department in satisfactory condition. IMPRESSION: Completed fine-needle aspiration of a right upper lobe lung/chest wall mass as above. ACT 112: Negative or not required by law. Electronically signed by: Shaun Barreto M.D. 01/02/2022 11:12 AM Chest X-Ray 01/02/22 11:09 INSPIRATORY/EXPIRATORY CHEST X-RAY CLINICAL HISTORY: Status post right chest wall/lung biopsy. FINDINGS: AP, portable, upright chest radiographs are performed in inspiration and expiration and compared to chest x-ray and chest CT dated 12/25/2021. The h eart is mildly enlarged noting atherosclerotic calcification of the thoracic aorta. The pulmonary vasculature is noncongested. Emphysematous change is again noted. Again seen is a 6 mm mass lesion at the right apex with destruction of the posterior fourth and fifth ribs. Scarring/atelectasis is noted at both lung bases. There is no airspace consolidation typical for pneumonia. No pneumothorax is seen. The skeletal structures are osteopenic. IMPRESSION: 1. No pneumothorax is seen post procedure. 2. Cardiomegaly and emphysema. 3. A right apical lung mass with associated rib destruction is unchanged. ACT 112: Negative or not required by law. Electronically signed by: Shaun Barreto M.D. 01/02/2022 12:21 PM Chest X-Ray 01/03/22 07:47 XR chest 1V portable HISTORY: s/p lung biopsy, hypoxia COMPARISON: Chest 01/02/2022. FINDINGS: No pneumothorax. The cardiac silhouette remains mildly enlarged. Progressive bibasilar patchy airspace opacities. No evidence for pulmonary edema. Right upper lobe/chest wall mass again noted. Calcifications within the aortic knob. IMPRESSION: 1. Redemonstration of the right upper lobe/chest wall mass. 2. No pneumothorax. 3. Patchy bibasilar densities which have progressed in the interval. This could represent atelectasis or an aspiration pneumonia. ACT 112: Negative or not required by law. Electronically signed by: Hebert Dickson M.D. 01/03/2022 8:09 AM Hospital Course (1) Respiratory failure with hypoxia: Patient with prior known SHAYY lesion however multiple falls/rib fx and seizures over the last year and never had follow-up/IR as previously recommended (80pack year) Came in with shortness of breath (underlying COPD) Imaging with RUL mass with invasion to adjacent posterior right fourth/fifth ribs with bone destruction (hypercalcemia on admit, repeat wnl) Heme/onc, radiation oncology consulted Brain MRI negative for metastatic disease CTAP without evidence for metastatic disease in abdomen or pelvis Biopsy with radiology 01/02 -- Preliminary cytology with squamous cell carcinoma, final pending ?RUL mass, ?ptosis of left eye, ?pancoast tumor. Additional testing sent out by oncology Outpt f/u heme/onc and radiation next week-- they will arrange with patient Continued Breo, Incruse --> new rx at d/c and encouraged use Speech eval'd while inpatient for episode of aspiration * s/p GI EGD w/ dilation. suspected achalasia and outpatient manometry recommended * Placed on Unasyn 12/29 switched to Augmentin to complete 7 day course,completed while inpatient --Added doxy BID 01/[address] Carmona -- complete 5 day course at d/c 2step w/ 2L w/ ambulation, nothing at rest on 01/03. Rx for CM GIven 2 doses of IV venofer prior to d/c for low hgb . hgb 8.0--> 9.1 (?error), 8.6 on AM labs more accurate prior to 2nd dose Venofer although iron studies w/ acute on chronic. F/u Heme/onc for continued transfusions as needed. Breathing stable, no bleeding. (2) Anemia: Impressive decline during the course; no clinical bleeding; Hgb had been in the 10-11s range, was 9s prior to EGD/dilation discussed with hematology, ?bleeding from dilation GI did not feel the same, recs for iron replacement added empiric PPI and rx at d/c Haptoglobin elevated , likely related to underlying malignancy Iron studies w/ acute on chronic MERRITT (iron 24, trans % sat 11% however TIBC low at 222) B12 low normal, replacement ordered and continued at d/c Folate wnl No obvious bleeding, fecal occult negative Discussed with GI and recs for Iron replacement given hgb 8.0 on am labs Venofer 200mg IV x1 given, hgb --> 9.1?lab error, additional dose prior to d/c for hgb 8.6 and continued B12 replacement at discharge for B12 227 during inpatient stay F/u heme/onc for continued infusions/venofer as needed (3) Elevated troponin: No angina, likely demand ischemia; continue aspirin and statin; LV shows preserved ejection fraction No CP/SOB reported reported for days prior to d/c (4) Lung cancer: With local invasion without distant metastases; Radiation oncology, heme/onc consulted 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, 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 Pain control --oxycodone prn, fentanyl patch 12mcg Q3D ordered and patient reports effectiveness Prior auth for fentanyl today APPROVED THIS AFTERNOON Rxs for both at d/c, moving bowels and encouraged bowel regimen w/ pain medications (5) Seizure prophylaxis: Following past intracranial bleed; continued Keppra (6) HTN (hypertension): BP stable 156/67 (had elevations earlier in stay reported to have been on 0.1mg BID clonidine) Continue amlodipine, increased dose 10mg (suspect related to dependent edema as well, dopplers NEGATIVE on admit), clonidine .2mg BID (7) COPD with emphysema: continued Breo and LAMA; continue ipratropium albuterol avoided on account of tendency to sinus tachycardia Titrate O2 to maintain sats, 2step ordered for d/c planning and demonstrated need 2L w/ ambulation Doxycycline as above for atypicals as rec'd by pulm. Encouraged drinking with adequate water to avoid esophagitis, marylu given possible achalasia underlying (8) Peripheral arterial disease: Currently nonacute issue; continued aspirin and statin follows w/ dr cason in past, routine f/u qdopplers negative on admit (9) Chronic kidney disease, stage III (moderate): Stable (10) Hypercholesterolemia: Continued statin (11) Retinal detachment: Hx of such Continued home eyedrops; also history of macular degeneration had appointment on Sunday he DOES NOT want to miss --> daughter rescheduled for later ?ptosis of left eye, ?related to possible pancoast tumor f/u heme/onc and ophthalmology at d/c (12) Dysphagia: Status post dilatation with EGD with Dr Vyas 12/28; outpatient manometry for possible achalasia Maintain aspiration precautions per speech eval, extra sauce/gravy -- continued recs at d/c (13) PNA (pneumonia): Not present on admission, suspected aspiration, Unasyn switched to Augmentin and completed course inpatient Doxy x 5 days Goal 88% or > on RA at rest, currently 90% Titrated to room air, 2step w/ 2L w/ ambulation, O2 arranged by CM Plan discharged home with daughter outpatient f/u heme/onc and radiation next week outpt GI f/u for manometry Outpt f/u ophthalmology Total Time Total Time Spent Total Time Spent (In Minutes): 70 Discharge Plan Discharge Items Patient Disposition: Home - Self-Care Reason For Visit: LUNG MASS,HYPOXIA,HYPERTENSION Discharge Diagnosis: Lung Cancer Goals: You have been hospitalized for an acute medical problem. During your stay at [facility], we have made an effort to correct the problem that brought you to the hospital while keeping you as comfortable as possible. Medications were used to bring your condition under control and your discharge instructions will include directions for any medications you should take after leaving the hospital. Please make sure you see your Primary Care Provider as part of your follow up plan. Activity: Resume your previous activity Non-emergency contact: Primary Care Provider, Training And Development Professional and Oncologist Call non-emergency contact if: you have any medication questions Follow-up/Referrals: Kylah Good CRNP [Primary Care Provider] - Stewart Garcia MD [Physician] - (1 week) Madeline Blount DO [Physician] - 02/17/22 10:20 am (Please arrive at 10:00 am. ) Missy Alcantar MD [Physician] - Diet: Heart Healthy Diet Comment: smaller more frequent meals, mouth care, alternate solid/liquids, sit uprig Addtl Attending Provider Instructions: You have been hospitalized for acute respiratory failure which has likely been due to lung mass with invasion to the ribs on your right side. We performed a biopsy pathology shows a squamous cell carcinoma which has been sent out for further testing. Dr Garcia from radiation stated he would be able to see you as soon as next week and Dr Alcantar will order your chemotherapy to start next week. You should continue Breo and Incruse inhalers daily to help with breathing. We did a test that showed you should be using 2 liters of oxygen with exercise and this has been set up. It is STRONGLY RECOMMENDED NOT TO BE SMOKING WITH OXYGEN THIS CAN CAUSE AN EXPLOSION. quitting smoking is also a good idea just in general. For the pneumonia (felt related to the choking episode/aspiration) you completed a course of Unasyn/Augmenting, but have another THREE DAYS left of the DOycycline TWICE daily given you stayed another day in the hospital, per the pulmonology doctor recommendations. You should continue your breathing exercises to prevent any worsening pneumonia. You have been sent in prescriptions for pain control with oxycodone as needed, would recommend taking around the clock Tylenol 1,000mg every eight hours, and have been sent in a prescription for Fentanyl patch 12mcg to be changed every three days. THIS IS A STRONG MEDICATION. You should continue over the counter miralax/colace if any issues with moving your bowels while on this medication. You will need outpatient follow up with the beauty sales advisor (Dr Vyas) for manometry (measuring pressures in your esophagus) as they believe given findings on the EGD that you likely have underlying narrowing of the esophagus that has caused that issue with the choking. Speech therapy evaluated you while in the hospital and is recommending a lternating soft/solid foods and ensuring having gravies/liquids to allow for easier swallowing. Your amlodipine has been increased to 10mg daily which hopefully should help with esophageal relaxation as well. I also checked B12 levels given memory/balance issues as well as anemia and this was on the very low side of normal and you have been given replacement while in the hospital and should continue this daily. Please follow up with your primary care provider in the next 7-10 days to monitor your progress. Please follow up with Dr Alcantar, Dr Garcia and gastroenterology as outlined above. Please return to the ER with any fevers, increased shortness of breath, chest pain, or for any other symptoms concerning for you. Take care! Pending Studies at Discharge: Yes Studies:: Biopsy -- squamous cell carcinoma Stand-Alone Forms: My [facility] [employer], Smoking Cessation Medications and DC Order Prescriptions: New Incruse Ellipta 62.5 mcg/actuation Blister With Device 1 inh inhalation DAILY 30 Days Qty: 30 0RF amlodipine [Norvasc] 5 mg Tablet 10 mg PO QAM Qty: 30 0RF fentanyl 12 mcg/hr Patch 72 Hour 12 mcg transdermal Q3D Qty: 5 0RF oxycodone 5 mg Tablet 10 mg PO Q4 PRN (Reason: pain) Qty: 14 0RF fluticasone furoate-vilanterol [Breo Ellipta] 200-25 mcg/dose Blister With Device 1 ea inhalation DAILY 30 Days Qty: 60 0RF cyanocobalamin (vitamin B-12) 1,000 mcg capsule 1,000 mcg PO DAILY Qty: 30 0RF doxycycline hyclate 100 mg Capsule 100 mg PO BID Qty: 8 0RF (DME) Oxygen Home Liters Per Minute See Rx Instructions .Route Qty: 1 0RF Rx Instructions: As directed Continued multivitamin tablet 1 tab PO QAM Combigan 0.2-0.5 % drops 1 drops OP BID loratadine [Claritin] 10 mg tablet 10 mg PO DAILY PRN (Reason: Allergy Symptoms) acetaminophen 325 mg capsule 650 mg PO Q4H PRN (Reason: pain) Qty: 100 0RF allopurinol 100 mg tablet 100 mg PO QDD Qty: 90 3RF omeprazole 20 mg capsule,delayed release(DR/EC) 20 mg PO QAM Qty: 90 3RF pravastatin 80 mg tablet 80 mg PO HS Qty: 90 3RF levetiracetam [Keppra] 500 mg tablet 500 mg PO BID Qty: 60 5RF clonidine HCl 0.2 mg tablet See Rx Instructions PO HS Qty: 180 3RF Rx Instructions: 0.5 tablet in the AM and noon and 1 tablet in the PM PO at bedtime; Metamucil 3.4 gram/5.4 gram powder 1 tbsp PO QAM Rx Instructions: mix into at least 8 oz of water or juice before administering aspirin 81 mg Tablet,Delayed Release (Dr/Ec) 81 mg PO QAM Discontinued prednisone 10 mg tablets,dose pack See Rx Instructions .Route .COMPLEX Qty: 42 1RF Rx Instructions: 60 mg p.o. q.day x2 days, 50 mg p.o. q.day x2 days, 40 mg p.o. q.day x2 days, 30 mg p.o. q.day x2 days, 20 mg p.o. q.day x2 days, 10 mg p.o. q.day x2 days then stop hydrocodone-acetaminophen 5-325 mg tablet 1 tab PO TID PRN (Reason: pain) Qty: 90 0RF amlodipine 5 mg tablet 5 mg PO QDD Qty: 90 3RF Discharge Orders: Discharge Order (Routine); Ordered 01/05/22 Ordered By: Brenda Banuelos Admission Data Admit Date/Time: 12/25/21 17:51 Attending Provider: Lexi Ramirez Admit Provider: Dalton Huang Care Provider: Kylah Good Other Providers: Dalton Huang ; Missy Alcantar ; Alex Vyas ; Stewart Garcia ; Violeta Carmona Other Interventions: Discharge Summary Assessment (RN) Last Done: 01/05/22 11:51 Supervising Physician Co-Signing Physician Notes PA Supervision Note: I did not personally see or examine the patient today, but I verified all [place] points of AALIYAH Banuelos's assessment and plan with the following exceptions/additions: 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 However, should have f/u with Ophthalmology for ptosis left eye regardless Plan to start chemoradiation for SCLC in near future Coding Level of Care Code D/C DAY MANAGEMENT >30 MINS Diagnoses Respiratory failure with hypoxia J96.91 Anemia D64.9 Elevated troponin R77.8 Lung cancer C34.90 Seizure prophylaxis Z29.8 HTN (hypertension) I10 COPD with emphysema J43.9 Peripheral arterial disease I73.9 Chronic kidney disease, stage III (moderate) N18.3 Hypercholesterolemia E78.00 Retinal detachment H33.20 Dysphagia R13.10 PNA (pneumonia) J18.9
[2022-01-05 11:52] VITALS: BP 156/67; PULSE 52
== END 2022-01-05 12:42 | disposition home or self-care (01) | DRG 180 ==
LOC: ED 14:47 → EDINP 17:51 → SUATTDRO 17:51 → 2S 19:34 → 4W 12-26 12:57

== ENCOUNTER 2022-01-22 17:44 | Inpatient (IN) ==
[2022-01-22] MEDS ORDERED: SODIUM CHLORIDE 0.9% 1000ML 1,000 ML IV ONE (18:17)
[2022-01-22] MEDS ORDERED: MoRPHine SULFATE 2 MG/ML CARP IV STA (18:17)
--- NOTE | 2022-01-22 18:21 | Emergency Department Note ---
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 This has been present for the past 6 months and gradually getting worse. He does have fentanyl patches and is taken oxycodone. Family notes that he has not been eating or drinking much and believe that he is dehydrated. He denies any belly pain, nausea, vomiting, or diarrhea. He does admit to some dysuria but no urgency or frequency. No headache or change in vision. They note that his been confused for the past 2 days. No other exacerbating or remitting factors. ROS: See above HPI for pertinent positives & negatives. A total of 10 systems reviewed and were otherwise negative. PAST MEDICAL HISTORY:See Below PAST SURGICAL HISTORY:See Below FAMILY HISTORY:See Below SOCIAL HISTORY:See Below HOME MEDICATIONS:See Below ALLERGIES:See Below VITALS:See Below PHYSICAL EXAMINATION: GENERAL: Sitting up in bed, alert, ill-appearing on 2 L nasal cannula chronically EYE EXAM: normal conjunctiva. PERRL and EOM's grossly intact. OROPHARYNX: no exudate, no erythema, lips, buccal mucosa, and tongue normal and mucous membranes are moist NECK: supple, no nuchal rigidity, no adenopathy, non-tender LUNGS: Clear to auscultation. Normal chest wall mechanics HEART: no murmurs, S1 normal and S2 normal ABDOMEN: abdomen soft, non-tender, normo-active bowel sounds, no masses, no rebound or guarding. UPPER EXTREMITIES: upper extremities are grossly normal. LOWER EXTREMITIES: No pitting edema. NEURO EXAM: To person and place but not year, cranial nerves II-XII intact, normal speech, no weakness of arms, no weakness of legs. MEDICAL DECISION MAKING: Patient is an 86-year-old male who presents to the ER with above-stated complaint. IV was established blood work was obtained. Labs show no significa nt leukocytosis. Mild anemia at 9. BMP with LFTs and lipase was unremarkable. UA was clean. CT of the head and abdomen pelvis showed no new acute pathology but CT of the chest did show several small PEs. Nothing causing right heart strain per radiology. He was given IV fluids and several doses of morphine. He became slightly hypoxic. He was updated bedside discussed with Margo Valencia and admitted for further work-up. Not on anticoagulation and will defer to the hospitalist as he was not an extremis and there were very small PEs he did have a recent brain bleed back in February just over a year ago. Question if he would be a better candidate for IVC filter at this time. Triage Nursing notes reviewed. Limited review of prior medical records performed Vital Signs: reviewed and remarkable for no significant abnormalities Differential diagnosis: Infection, dehydration, metabolic abnormality, hypo/hyperglycemia, electrolyte disturbance, anemia, hypoxia, cardiac sources, intracerebral event, toxicologic, neurologic, as well as other pathologies. ER treatment provided: See below Diagnostics interpreted by me: ECG: Sinus rhythm rate 69 Normal axis No PVCs QTC 424 Cardiac Monitoring: An order was placed for continuous cardiac monitoring. The monitor shows a rate of 70 with sinus rhythm. Laboratory studies: As stated above and show below. Imaging studies: [See below] Consultation(s): [none] Procedures: [none] [PDMP:reviewed and no issues] Critical Care: [None] Past Med/Surg History Medical History Acid reflux TEMO (acute kidney injury) Benign prostatic hypertrophy Chronic kidney disease, stage III (moderate) no specialist per pt COPD with emphysema pt 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 Glaucoma Gouty arthritis prednisone taper 07/19/2021 by PCP for suspected gout, persistent discoloration and pain of toes-abnormal CTA with upcoming vascular surgery History of anesthesia reaction was confused, felt like his bed was on the wall, the clock was on the floor, after approx half hr, resolved History of blood transfusion 2010 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 [facility] complete Hypercholesterolemia Hypertension Impaired fasting glucose 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, fall in setting of seizure activity, HTN; follows with [facility] neuro d/c from neurosurgery: monitoring f/u imaging to further rule out vascular malformations and "aid in diagnosis of CAA should there be progression of micro-hemorrhages" Lumbar spinal stenosis Lung nodule Peripheral vascular disease Pulmonary hypertension mild 2018 echo Pulmonary nodule to have biopsy through [facility] IR 03/2021, not yet completed per records Retinal detachment Sacroiliitis Sciatica of left side gets steroid injections Seizure 03/02/2021, fall in setting of seizure activity, HTN; follows with [facility] neuro d/c from neurosurgery: monitoring f/u imaging to further rule out vascular malformations and "aid in diagnosis of CAA should there be progression of micro-hemorrhages" Skin lesion of left ear 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 Post-op anesthesia progress note: "...was hypertensive on arrival to PACU so was treated with labetalol. He remains hypertensive but his blood pressure is lower than it was at his preoperative baseline. His other vital signs are stable." H/O aorto-femoral bypass (~2009) [address] Alfaro H/O transurethral resection of prostate History of colonoscopy History of esophagogastroduodenoscopy (EGD) with dilation Hx of non-cataract eye surgery left eye x3 for retina issues Loss of teeth due to extraction Status post aortic bifurcation bypass graft History of Bypass Graft (Non-Vein) Aortic-bifemoral > 2009 > [facility] Status post appendectomy Status post cataract surgery bilat Status post tonsillectomy and adenoidectomy Family History Sister Breast cancer Diabetes Father Parkinsons disease Prostate cancer Mother Diabetes Denies family history of Ovarian cancer Myocardial infarction Lung cancer Colorectal cancer Social History Smoking Status: Former smoker Tobacco Type: Cigarettes Age Started Using Tobacco: 14; Age Quit Using Tobacco: 64; packs per day: 1; Second Hand Exposure: No; Hx Alcohol Use: No Hx Substance Use: No Preferred Language: Malagasy Communication Ability: Effective Visual Impairment: Limited Hearing Ability: Normal Cash Poster Required: No Beliefs That Will Affect Care: None marital status: / Current Living Situation: Alone Current Living Situation Comment: Lives in own home and can live on one floor current occupational status: retired How many Children do You have: 4 Feels Safe at Home: Yes Childhood Exposure to Second-Hand Smoke: No caffeine: Yes Dental Care, Regularly: No Physical Activity Frequency: 5-6 Times per Week Seatbelt Use: always Sunscreen Use: No Assistive Devices: Cane Allergies Allergies Allergy/AdvReac Type Severity Reaction Status Date / Time baclofen Allergy Unknown Unknown Verified 01/22/22 22:08 carvedilol Allergy Unknown Unknown Verified 01/22/22 22:08 clozapine Allergy Unknown unknown Verified 01/22/22 22:08 haloperidol Allergy Unknown unknown Verified 01/22/22 22:08 metoclopramide Allergy Unknown Unknown Verified 01/22/22 22:08 Phenothiazines Allergy Unknown unkonwn Verified 01/22/22 22:08 Home Meds Home Medications Medication Instructions Recorded Confirmed multivitamin 1 tab PO QAM 02/11/18 01/22/22 brimonidine 0.2 %-timolol 0.5 % 1 drops ophthalmic (eye) BID 11/12/18 01/22/22 eye drops (Combigan) loratadine 10 mg tablet (Claritin) 10 mg PO DAILY PRN Allergy Symptoms 06/11/20 01/22/22 psyllium husk 3.4 gram/5.4 gram 1 tbsp PO QAM PRN Constipation 06/11/20 01/22/22 oral powder (Metamucil) aspirin 81 mg tablet,delayed 81 mg PO QAM 08/04/21 01/22/22 release amlodipine 5 mg tablet (Norvasc) 5 mg PO DAILY 01/22/22 01/22/22 oxycodone 10 mg tablet 10 mg PO Q4 PRN pain 01/22/22 01/22/22 Previous Rx's Medication Instructions Recorded acetaminophen 325 mg capsule 650 mg PO Q4H PRN pain #100 caps 12/24/20 allopurinol 100 mg tablet 100 mg PO QDD #90 tabs 08/15/21 omeprazole 20 mg capsule,delayed 20 mg PO QAM #90 caps 08/15/21 release pravastatin 80 mg tablet 80 mg PO HS #90 tabs 08/15/21 levetiracetam 500 mg tablet 500 mg PO BID #60 tabs 09/16/21 (Keppra) cyanocobalamin (vitamin B-12) 1,000 mcg PO DAILY #30 caps 01/03/22 1,000 mcg capsule fluticasone furoate 200 1 ea inhalation DAILY 30 days #60 01/03/22 mcg-vilanterol 25 mcg/dose ea inhalation powder (Breo Ellipta) umeclidinium 62.5 mcg/actuation 1 inh inhalation DAILY 30 days #30 01/03/22 blister powder for inhalation ea (Incruse Ellipta) Oxygen Home #1 ea 01/04/22 clonidine HCl 0.2 mg tablet See Rx Instructions PO HS #180 tabs 01/10/22 fentanyl 12 mcg/hr transdermal 12 mcg transdermal Q3D #5 ea 01/10/22 patch Results & Data (ED) Vital Signs Vital Signs - 24 hr 01/22/22 17:51 01/22/22 18:36 01/22/22 18:17 Temperature 36.4 C L Temperature Source Temporal Artery Scan Pulse Rate 73 Pulse Rate [Left Apical] 80 Pulse Rhythm [Left Apical] Regular Pulse Strength [Left Apical] Normal Respiratory Rate 20 16 Respiratory Effort / Characteristics Non-Labored Spontaneous Respiratory Depth Normal Blood Pressure 145/64 H Blood Pressure [Right Arm] 134/57 L Blood Pressure Mean 91 Blood Pressure Mean [Right Arm] 82 Blood Pressure Position [Right Arm] Pulse Oximetry 87 L 97 97 Oxygen Delivery Method Room Air Room Air Room Air Oxygen Flow Rate Sepsis Recent Fever Within 48 Hours No Sepsis New/Unexplained Change in Mental Status No Sepsis Action Taken by Nursing No Action Required 01/22/22 20:00 01/22/22 20:54 01/22/22 22:00 Temperature Temperature Source Pulse Rate Pulse Rate [Left Apical] 66 65 65 Pulse Rhythm [Left Apical] Regular Pulse Strength [Left Apical] Respiratory Rate 20 20 18 Respiratory Effort / Characteristics Respiratory Depth Blood Pressure Blood Pressure [Right Arm] 118/67 146/64 H 103/52 L Blood Pressure Mean Blood Pressure Mean [Right Arm] 84 91 69 Blood Pressure Position [Right Arm] Pulse Oximetry 92 93 98 Oxygen Delivery Method Nasal Cannula Nasal Cannula Nasal Cannula Oxygen Flow Rate 2 5 5 Sepsis Recent Fever Within 48 Hours Sepsis New/Unexplained Change in Mental Status Sepsis Action Taken by Nursing 01/22/22 23:31 Temperature Temperature Source Pulse Rate Pulse Rate [Left Apical] 62 Pulse Rhythm [Left Apical] Pulse Strength [Left Apical] Respiratory Rate 12 Respiratory Effort / Characteristics Respiratory Depth Blood Pressure Blood Pressure [Right Arm] 118/55 L Blood Pressure Mean Blood Pressure Mean [Right Arm] 76 Blood Pressure Position [Right Arm] Lying Pulse Oximetry 98 Oxygen Delivery Method Nasal Cannula Oxygen Flow Rate 4 Sepsis Recent Fever Within 48 Hours Sepsis New/Unexplained Change in Mental Status Sepsis Action Taken by Nursing Laboratory Data Result diagrams: 01/22/22 18:31 01/22/22 18:31 Lab Results 01/22/22 01/22/22 01/22/22 Range/Units 18:31 18:31 21:50 WBC 9.43 (4.8-10.8) K/ul RBC 2.93 L (4.63-6.08) M/uL Hgb 9.3 L (14.0-18.0) g/dl Hct 28.8 L (40.1-51.0) % MCV 98.3 (80.0-100.0) fL MCH 31.7 (25.0-34.0) pg MCHC 32.3 (32.0-36.0) g/dL RDW Std Deviation 48.1 H (36.4-46.3) fL RDW Coeff of Pepe 13.3 (11.5-14.5) % Plt Count 263 (130-400) K/uL MPV 10.3 (9.4-12.4) fL Immature Gran % (Auto) 0.7 % Neut % (Auto) 69.7 % Lymph % (Auto) 14.1 % Chase % (Auto) 13.9 % Eos % (Auto) 1.5 % Baso % (Auto) 0.1 % Neut # (Auto) 6.57 H (1.4-6.5) K/uL Lymph # (Auto) 1.33 (1.2-3.4) K/uL Chase # (Auto) 1.31 H (0.24-0.82) K/uL Eos # (Auto) 0.14 (0-0.50) K/uL Baso # (Auto) 0.01 (0-0.2) K/uL Immature Gran # (Auto) 0.07 H (0.00-0.02) K/uL Sodium 136 (136-145) mmol/L Potassium 3.9 (3.5-5.1) mmol/L Chloride 103 (98-107) mmol/L Carbon Dioxide 27 (21-32) mmol/L Anion Gap 6 (3-11) BUN 22 (6-23) mg/dl Creatinine 1.27 (0.6-1.4) mg/dl Est Cr Clr Drug Dosing Not Reportable Est GFR ( Amer) 58.1 ml/min Est GFR (Non-Af Amer) 50.1 ml/min BUN/Creatinine Ratio 17.3 (10-20) Glucose 108 H (70-99(Fasting)) mg/dl Calcium 9.0 (8.5-10.1) mg/dl Total Bilirubin 0.5 (0.2-1.0) mg/dl AST 23 (13-39) U/L ALT 11 (7-52) U/L Alkaline Phosphatase 76 (34-104) U/L Total Protein 5.2 L (6.0-8.3) gm/dl Albumin 2.8 L (3.4-5.0) gm/dl Globulin 2.4 L (2.5-4.0) gm/dl Albumin/Globulin Ratio 1.2 (0.9-2) Lipase 15 (11-82) U/L Urine Color Yellow Urine Appearance Clear (Clear) Urine pH 5.0 (4.5-7.5) Ur Specific [place] 1.016 (1.000-1.030) Urine Protein Negative (Negative) Urine Glucose (UA) Negative (Negative) Urine Ketones Negative (Negative) Urine Blood Negative (Negative) Urine Nitrite Negative (Negative) Urine Bilirubin Negative (Negative) Urine Urobilinogen Negative (Negative) Ur Leukocyte Esterase Negative (Negative) Administered Medications Discontinued Medications Sodium Chloride (Nss 1000ml) 1,000 mls @ 999 mls/hr IV .Q1H1M ONE Stop: 01/22/22 19:17 Last Infusion: 01/22/22 19:43 Dose: 0 mls/hr Documented By: Admin: 01/22/22 18:36 Dose: 999 mls/hr Documented By: JORDAN Ioversol (Optiray 300 500ml) 100 ml IV ONCE ONE Stop: 01/22/22 20:50 Last Admin: 01/22/22 20:50 Dose: 100 ml Documented By: CYRUS Morphine Sulfate (Morphine Sulfate 2 Mg/Ml Carp) 2 mg IV NOW STA Stop: 01/22/22 18:18 Last Admin: 01/22/22 18:36 Dose: 2 mg Documented By: TW Morphine Sulfate (Morphine Sulfate 4 Mg/Ml 1 Ml Carp\\Vial) 4 mg IV NOW STA Stop: 01/22/22 19:45 Last Admin: 01/22/22 19:53 Dose: 4 mg Documented By: AY Discharge Plan Visit Data Chief Complaint: Dehydration Stated Complaint: PSBL DEHYDRATION, DELERIOUS, PAIN, CONFUSED ED Provider: Kong Ribera Discharge Problem: Chest pain, Anemia, Pulmonary embolism Forms Stand Alone Forms: [facility] Prescriptions Prescriptions: No Action multivitamin tablet 1 tab PO QAM Combigan 0.2-0.5 % drops 1 drops OP BID loratadine [Claritin] 10 mg tablet 10 mg PO DAILY PRN (Reason: Allergy Symptoms) acetaminophen 325 mg capsule 650 mg PO Q4H PRN (Reason: pain) Qty: 100 0RF allopurinol 100 mg tablet 100 mg PO QDD Qty: 90 3RF omeprazole 20 mg capsule,delayed release(DR/EC) 20 mg PO QAM Qty: 90 3RF pravastatin 80 mg tablet 80 mg PO HS Qty: 90 3RF levetiracetam [Keppra] 500 mg tablet 500 mg PO BID Qty: 60 5RF Metamucil 3.4 gram/5.4 gram powder 1 tbsp PO QAM PRN (Reason: Constipation) Rx Instructions: mix into at least 8 oz of water or juice before administering clonidine HCl 0.2 mg tablet See Rx Instructions PO HS Qty: 180 3RF Rx Instructions: 0.5 tablet in the AM and noon and 1 tablet in the PM PO at bedtime; fentanyl 12 mcg/hr patch 72 hour 12 mcg transdermal Q3D Qty: 5 0RF aspirin 81 mg Tablet,Delayed Release (Dr/Ec) 81 mg PO QAM Incruse Ellipta 62.5 mcg/actuation Blister With Device 1 inh inhalation DAILY 30 Days Qty: 30 0RF fluticasone furoate-vilanterol [Breo Ellipta] 200-25 mcg/dose Blister With Device 1 ea inhalation DAILY 30 Days Qty: 60 0RF cyanocobalamin (vitamin B-12) 1,000 mcg capsule 1,000 mcg PO DAILY Qty: 30 0RF (DME) Oxygen Home Liters Per Minute See Rx Instructions .Route Qty: 1 0RF Rx Instructions: As directed amlodipine [Norvasc] 5 mg tablet 5 mg PO DAILY Rx Instructions: 5 mg orally daily; oxycodone 10 mg tablet 10 mg PO Q4 PRN (Reason: pain) Rx Instructions: Take 1 tablet every 4 hours prn thoracic pain Referrals Referrals: Kylah Good CRNP [Primary Care Provider] -
[2022-01-22 18:47] LABS: Basophils # (auto) 0.01 K/uL (0-0.2); Basophils % (auto) 0.1 %; Eosinophils # (auto) 0.14 K/uL (0-0.50); Eosinophils % (auto) 1.5 %; Hematocrit (blood only) 28.8 % (40.1-51.0); Hemoglobin 9.3 g/dl (14.0-18.0); Immature Granulocytes # (auto) 0.07 K/uL (0.00-0.02); Immature Granulocytes % (auto) 0.7 %; Lymphocytes # (auto) 1.33 K/uL (1.2-3.4); Lymphocytes % (auto) 14.1 %; Mean Corpuscular Hemoglobin 31.7 pg (25.0-34.0); Mean Corpuscular Hgb Conc 32.3 g/dL (32.0-36.0); Mean Corpuscular Volume 98.3 fL (80.0-100.0); Mean Platelet Volume 10.3 fL (9.4-12.4); Monocytes # (auto) 1.31 K/uL (0.24-0.82); Monocytes % (auto) 13.9 %; Neutrophils # (auto) 6.57 K/uL (1.4-6.5); Neutrophils % (auto) 69.7 %; Platelet Count 263 K/uL (130-400); RDW Coefficient of Variation 13.3 % (11.5-14.5); RDW Standard Deviation 48.1 fL (36.4-46.3); Red Blood Count 2.93 M/uL (4.63-6.08); White Blood Count 9.43 K/ul (4.8-10.8)
[2022-01-22 19:17] LABS: Alanine Aminotransferase 11 U/L (7-52); Albumin Globulin Ratio 1.2 (0.9-2); Albumin Level 2.8 gm/dl (3.4-5.0); Alkaline Phosphatase 76 U/L (34-104); Anion Gap 6 (3-11); Aspartate Aminotransferase 23 U/L (13-39); BUN Creatinine Ratio 17.3 (10-20); Bilirubin,Total 0.5 mg/dl (0.2-1.0); Blood Urea Nitrogen 22 mg/dl (6-23); Carbon Dioxide 27 mmol/L (21-32); Chloride 103 mmol/L (98-107); Est GFR (African American) 58.1 ml/min; Est GFR (Non-African American) 50.1 ml/min; Globulin 2.4 gm/dl (2.5-4.0); Glucose 108 mg/dl (70-99(Fasting)); Lipase 15 U/L (11-82); Potassium 3.9 mmol/L (3.5-5.1); Sodium 136 mmol/L (136-145); Total Protein 5.2 gm/dl (6.0-8.3)
[2022-01-22] MEDS ORDERED: MoRPHine SULFATE 4 MG/ML 1 ML CARP\\VIAL IV STA (19:44)
[2022-01-22] MEDS ORDERED: OPTIRAY 300 500mL IV ONE (20:49)
[2022-01-22 22:24] LABS: Appearance Urine Clear (Clear); Bilirubin Urine Negative (Negative); Blood Urine Negative (Negative); Color Urine Yellow; Glucose Urine UA Negative (Negative); Ketones Urine Negative (Negative); Leukocyte Esterase Urine Negative (Negative); Nitrite Urine Negative (Negative); Protein Urine Negative (Negative); Specific Gravity Urine 1.016 (1.000-1.030); Urobilinogen Urine Negative (Negative)
--- NOTE | 2022-01-22 23:49 | History & Physical Report ---
Date of Service January 22, 2022 Assessment & Plan (1) Pulmonary embolism: Plan: Baron Bliss is an 86-year-old male with past medical history of metastatic lung cancer, history of left parietal intraparenchymal hemorrhage with possible seizure (February 2021), hypertension, CKD3, COPD, GERD, hyperlipidemia, PVD, BPH, gout who presented due to progressive upper back pain. Found to have PEs on chest imaging. Pulmonary embolisms Vital signs stable, though did develop hypoxia in the ED requiring nasal cannula to maintain oxygenation Does have history of left parietal intraparenchymal hemorrhage in February 2021, making him a higher risk candidate for anticoagulation Started on heparin drip no bolus Monitor closely for any signs of active bleeding CBC in a.m. Oxygen supplementation as needed Back pain Likely multifactorial history of spinal stenosis, lung cancer metastatic to bone, and potential contribution from PEs Continue home fentanyl patch, oxycodone as needed As needed acetaminophen, morphine scaled PT/OT ordered to evaluate functional status History of left parietal intraparenchymal hemorrhage with possible seizure Continue home levetiracetam Tight blood pressure control, ideally under 160 systolic Lung cancer Follows with heme-onc and rad-onc Was due to start chemotherapy and radiation tomorrow at [facility] Would recommend contacting oncology team for discussion formal consult deferred at this time Sacral pressure wound Wound nurse consulted Constipation MiraLAX scheduled Chronic issues: Hypertension: Continue home amlodipine, clonidine COPD: Continue home Incruse, Breo PVD: Continue home aspirin Gout: Continue home allopurinol GERD: Continue PPI Hyperlipidemia: Continue pravastatin Allergic rhinitis: Continue loratadine as needed DVT prophylaxis: Heparin drip as above Diet: Heart healthy Dispo: Admit to telemetry, PT/OT to evaluate for home needs CODE STATUS: Full, discussed with patient and daughters at bedside patient initially did report that with his current symptoms he had told his daughters "just let me ", but did state now that he would want everything done, daughters agreed (2) Metastatic lung cancer (metastasis from lung to other site): (3) HTN (hypertension): (4) Benign hypertension with chronic kidney disease, stage III: (5) COPD with emphysema: (6) Acid reflux: (7) Lumbar spinal stenosis: History of Present Illness Primary Care Provider: MA[facility] Baron Bliss is an 86-year-old male with past medical history of metastatic lung cancer, history of left parietal intraparenchymal hemorrhage with possible seizure (February 2021), hypertension, CKD3, COPD, GERD, hyperlipidemia, PVD, BPH, gout who presented due to progressive upper back pain. Per patient and his 3 daughters in the room, the back pain has been going on for close to a year and has been progressively worsening. Over the past week, he has also noticed some mild shortness of breath. His daughters have also noticed that he has not had much of an appetite and has not been drinking much. He did also report some mild urinary discomfort, but no frequency or urgency. Additionally, he states he has not had a bowel movement in about 2 weeks. Daughters also state that he has had a developing sacral pressure ulcer and also mentioned concern for increasing confusion and the patient. He denies fever, chills, nausea, vomiting, abdominal pain, diarrhea, rash, chest pain, palpitations, coughing, headache, dizziness, weakness, numbness, neurologic deficits. In the ED, he had a CTA chest showing a pulmonary embolism in the lingular branch and one of the lower left lobe segmental branches, possible segmental pulmonary embolism in the right lower lobe as well (see stat rad report for further information). CTs of the abdomen/pelvis and head did not show any acute findings. He had a normal urinalysis. Blood work showed hemoglobin of 9.3, creatinine 1.27. He was hypoxic and required 5 L nasal cannula to maintain oxygenation around 93%. Received NSS 1 L bolus x1, morphine 2 mg IV x1, morphine 4 mg IV x1. Allergies Allergy/AdvReac Type Severity Reaction Status Date / Time baclofen Allergy Unknown Unknown Verified 01/22/22 22:08 carvedilol Allergy Unknown Unknown Verified 01/22/22 22:08 clozapine Allergy Unknown unknown Verified 01/22/22 22:08 haloperidol Allergy Unknown unknown Verified 01/22/22 22:08 metoclopramide Allergy Unknown Unknown Verified 01/22/22 22:08 Phenothiazines Allergy Unknown unkonwn Verified 01/22/22 22:08 Home Medications Medication Instructions Recorded Confirmed Type multivitamin 1 tab PO QAM 02/11/18 01/22/22 History brimonidine 0.2 %-timolol 0.5 % 1 drops ophthalmic (eye) BID 11/12/18 01/22/22 History eye drops (Combigan) loratadine 10 mg tablet (Claritin) 10 mg PO DAILY PRN Allergy Symptoms 06/11/20 01/22/22 History psyllium husk 3.4 gram/5.4 gram 1 tbsp PO QAM PRN Constipation 06/11/20 01/22/22 History oral powder (Metamucil) acetaminophen 325 mg capsule 650 mg PO Q4H PRN pain #100 caps 12/24/20 01/22/22 Rx aspirin 81 mg tablet,delayed 81 mg PO QAM 08/04/21 01/22/22 History release allopurinol 100 mg tablet 100 mg PO QDD #90 tabs 08/15/21 01/22/22 Rx omeprazole 20 mg capsule,delayed 20 mg PO QAM #90 caps 08/15/21 01/22/22 Rx release pravastatin 80 mg tablet 80 mg PO HS #90 tabs 08/15/21 01/22/22 Rx levetiracetam 500 mg tablet 500 mg PO BID #60 tabs 09/16/21 01/22/22 Rx (Keppra) cyanocobalamin (vitamin B-12) 1,000 mcg PO DAILY #30 caps 01/03/22 01/22/22 Rx 1,000 mcg capsule fluticasone furoate 200 1 ea inhalation DAILY 30 days #60 01/03/22 01/22/22 Rx mcg-vilanterol 25 mcg/dose ea inhalation powder (Breo Ellipta) umeclidinium 62.5 mcg/actuation 1 inh inhalation DAILY 30 days #30 01/03/22 01/22/22 Rx blister powder for inhalation ea (Incruse Ellipta) Oxygen Home #1 ea 01/04/22 01/10/22 Rx clonidine HCl 0.2 mg tablet See Rx Instructions PO HS #180 tabs 01/10/22 01/22/22 Rx fentanyl 12 mcg/hr transdermal 12 mcg transdermal Q3D #5 ea 01/10/22 01/22/22 Rx patch amlodipine 5 mg tablet (Norvasc) 5 mg PO DAILY 01/22/22 01/22/22 History oxycodone 10 mg tablet 10 mg PO Q4 PRN pain 01/22/22 01/22/22 History Past Med/Surg History Medical History Acid reflux TEMO (acute kidney injury) Benign prostatic hypertrophy Chronic kidney disease, stage III (moderate) no specialist per pt COPD with emphysema pt 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 Glaucoma Gouty arthritis prednisone taper 07/19/2021 by PCP for suspected gout, persistent discoloration and pain of toes-abnormal CTA with upcoming vascular surgery History of anesthesia reaction was confused, felt like his bed was on the wall, the clock was on the floor, after approx half hr, resolved History of blood transfusion 2009 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 [facility] complete Hypercholesterolemia Hypertension Impaired fasting glucose 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, fall in setting of seizure activity, HTN; follows with [facility] neuro d/c from neurosurgery: monitoring f/u imaging to further rule out vascular malformations and "aid in diagnosis of CAA should there be progression of micro-hemorrhages" Lumbar spinal stenosis Lung nodule Peripheral vascular disease Pulmonary hypertension mild 2018 echo Pulmonary nodule to have biopsy through [facility] IR 03/2021, not yet completed per records Retinal detachment Sacroiliitis Sciatica of left side gets steroid injections Seizure 03/02/2021, fall in setting of seizure activity, HTN; follows with [facility] neuro d/c from neurosurgery: monitoring f/u imaging to further rule out vascular malformations and "aid in diagnosis of CAA should there be progression of micro-hemorrhages" Skin lesion of left ear 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 Post-op anesthesia progress note: "...was hypertensive on arrival to PACU so was treated with labetalol. He remains hypertensive but his blood pressure is lower than it was at his preoperative baseline. His other vital signs are stable." H/O aorto-femoral bypass (~2009) [address] Alfaro H/O transurethral resection of prostate History of colonoscopy History of esophagogastroduodenoscopy (EGD) with dilation Hx of non-cataract eye surgery left eye x3 for retina issues Loss of teeth due to extraction Status post aortic bifurcation bypass graft History of Bypass Graft (Non-Vein) Aortic-bifemoral > 2009 > [facility] Status post appendectomy Status post cataract surgery bilat Status post tonsillectomy and adenoidectomy Family History Sister Breast cancer Diabetes Father Parkinsons disease Prostate cancer Mother Diabetes Denies family history of Ovarian cancer Myocardial infarction Lung cancer Colorectal cancer Social History Smoking Status: Former smoker Tobacco Type: Cigarettes Age Started Using Tobacco: 14; Age Quit Using Tobacco: 64; packs per day: 1; Second Hand Exposure: No; Hx Alcohol Use: No Hx Substance Use: No Preferred Language: Amharic Communication Ability: Effective Visual Impairment: Limited Hearing Ability: Normal [employer] Supervisor Required: No Beliefs That Will Affect Care: None marital status: / Current Living Situation: Alone Current Living Situation Comment: Lives in own home and can live on one floor current occupational status: retired How many Children do You have: 4 Feels Safe at Home: Yes Childhood Exposure to Second-Hand Smoke: No caffeine: Yes Dental Care, Regularly: No Physical Activity Frequency: 5-6 Times per Week Seatbelt Use: always Sunscreen Use: No Assistive Devices: Cane Review of Systems Review of Systems: Per HPI Physical Exam Physical Exam: GENERAL: A&Ox3. NAD. Thin, frail-appearing. HEENT: PERRL, EOMI. Moist mucous membranes. NECK: No JVD. No lymphadenopathy. CHEST/LUNGS: CTAB A/P. No crackles, wheezes, rales, rhonchi. HEART: RRR. No m/g/r. No carotid bruits. ABDOMEN: NT/ND, soft. BS+ x4 EXTREMITIES:2+ pitting edema BLE. No cyanosis, no clubbing SKIN: Warm and dry. Unable to view reported sacral wound at this time due to pt discomfort with rolling to side PSYCHIATRIC: Euthymic affect, no SI, no pressured speech, no hallucinations NEUROLOGIC: No FND. CN II-XII grossly intact. Results & Data Results & Data ([facility]) Vital Signs (Past 12 Hours) Vital Signs Temp Pulse Pulse Resp BP BP Pulse Ox 01/22/22 20:54 65 20 146/64 H 93 01/22/22 20:00 66 20 118/67 92 01/22/22 18:17 97 01/22/22 18:36 80 16 134/57 L 97 01/22/22 17:51 36.4 C L 73 20 145/64 H 87 L O2 Del Method O2 Flow Rate 01/22/22 20:54 Nasal Cannula 5 01/22/22 20:00 Nasal Cannula 2 01/22/22 18:17 Room Air 01/22/22 18:36 Room Air 01/22/22 17:51 Room Air Supervising Physician Co-Signing Physician Notes Patient seen and examined, chart reviewed, case discussed with Dr. Baptiste and I agree with the assessment and plan as above. Patient is an 86yo male with metastatic lung cancer, prior intraparenchymal hemorrhage, HTN, COPD presentting with SOB, poor PO intake and constipation. Found to have a PE in the lingular branch. Patient afebrile, HD stable on exam LE edema 2+ pitting +S1/S2, regular Lungs CTA Abd soft, NT/ND Assessment/plan - 86yo male with PE. Afebrile, HD stable. Active malignancy. History of intraparenchymal hemorrhage appx 1 year ago -Heparin gtt -Remainder as above Resident Activity Tracking Resident Involvement: Resident Care Provided Care Provided: Adult Hospital Medicine
--- NOTE | 2022-01-23 00:30 | Billing Data ---
Date of Service January 22, 2022 Coding Level of Care Code 14645 Initial Inpt Care Lvl 3
[2022-01-23] MEDS ORDERED: ACETAMINOPHEN 325 MG TAB PO PRN (02:07)
[2022-01-23] MEDS ORDERED: LORATADINE 10 MG TAB PO PRN (02:07)
[2022-01-23] MEDS: Patient's HEIGHT &/or WEIGHT Needed SCH ×2 (02:58→02:59)
[2022-01-23] MEDS: Heparin IV Adult Wt-Based Standard *NO* Bolus Protocol IV SCH ×2 (02:59→03:29)
[2022-01-23] MEDS ORDERED: fentaNYL 12 MCG/HR TDSY TD SCH (03:00)
[2022-01-23 03:48] LABS: Basophils # (auto) 0.02 K/uL (0-0.2); Basophils % (auto) 0.2 %; Eosinophils # (auto) 0.16 K/uL (0-0.50); Eosinophils % (auto) 1.6 %; Hematocrit (blood only) 28.2 % (40.1-51.0); Hemoglobin 9.1 g/dl (14.0-18.0); Immature Granulocytes # (auto) 0.07 K/uL (0.00-0.02); Immature Granulocytes % (auto) 0.7 %; Lymphocytes % (auto) 12.8 %; Mean Corpuscular Hemoglobin 32.2 pg (25.0-34.0); Mean Corpuscular Hgb Conc 32.3 g/dL (32.0-36.0); Mean Corpuscular Volume 99.6 fL (80.0-100.0); Mean Platelet Volume 10.6 fL (9.4-12.4); Monocytes # (auto) 1.45 K/uL (0.24-0.82); Monocytes % (auto) 14.2 %; Neutrophils # (auto) 7.18 K/uL (1.4-6.5); Neutrophils % (auto) 70.5 %; Platelet Count 270 K/uL (130-400); RDW Coefficient of Variation 13.6 % (11.5-14.5); RDW Standard Deviation 49.2 fL (36.4-46.3); Red Blood Count 2.83 M/uL (4.63-6.08); White Blood Count 10.18 K/ul (4.8-10.8)
[2022-01-23 04:09] LABS: Albumin Globulin Ratio 1.2 (0.9-2); Albumin Level 2.6 gm/dl (3.4-5.0); BUN Creatinine Ratio 15.7 (10-20); Bilirubin,Total 0.4 mg/dl (0.2-1.0); Calcium 8.8 mg/dl (8.5-10.1); Creatinine Clr Calc Pharmacy 35.4 ml/min; Est GFR (African American) 61.6 ml/min; Est GFR (Non-African American) 53.1 ml/min; Globulin 2.2 gm/dl (2.5-4.0); Magnesium 1.8 mg/dl (1.7-2.4); Total Protein 4.8 gm/dl (6.0-8.3)
[2022-01-23 04:16] LABS: Partial Thromboplastin Time 28.8 Seconds (21.0-31.0)
[2022-01-23] MEDS: HEPARIN SODIUM/DEXTROSE 25,000 UNITS/500 ML BAG IV SCH (04:25)
[2022-01-23] MEDS: MoRPHine SULFATE 4 MG/ML 1 ML CARP\\VIAL IV PRN ×5 (06:04→18:16)
[2022-01-23] MEDS: oxyCODONE HCL IR 5 MG TAB (IMMEDIATE RELEASE) PO PRN ×3 (07:00→16:34)
--- NOTE | 2022-01-23 07:21 | CT Scan Report ---
HEAD CT NONCONTRAST CT DOSE: HISTORY: confusion TECHNIQUE: Multiaxial CT images of the head were performed without the use of intravenous contrast. A utomated exposure control was utilized for this study. A dose lowering technique was utilized adheri ng to the principles of ALARA. Comparison: Head CT 03/02/2021. Findings: The paranasal sinuses and mastoid air cells are clear. The calvarium and skull base are int act. There is no mass, hematoma, midline shift, acute infarct. White matter hypodensity is nonspecifi c but suggestive of microvascular ischemic change. The ventricles and sulci demonstrate mild age-rela yeni involutional changes. There is an old small right frontal lobe infarct, unchanged. Persistent hyp erdense material within the left globe again noted. Impression: No acute intracranial abnormality. ACT 112: Negative or not required by law. Electronically signed by: Hebert Dickson M.D. 01/23/2022 7:20 AM
--- NOTE | 2022-01-23 08:21 | CT Scan Report ---
CT OF THE ABDOMEN AND PELVIS WITH CONTRAST CLINICAL HISTORY: Abdominal pain. Lung cancer. COMPARISON STUDY: CT of the abdomen and pelvis December 28, 2021. TECHNIQUE: Following IV administration of 100 mL of Optiray, axial images of the abdomen and pelvis w ere obtained from the lung bases to the proximal femurs. Images were reviewed in the axial, sagittal, and coronal planes. IV contrast was administered without complication. Automated exposure control w as utilized for the study. A dose lowering technique was utilized adhering to the principles of ALAR Yomi. CT DOSE: 1291.48 mGy.cm FINDINGS: Please note that the chest CT will be reported separately. Small hiatal hernia. Emphysema i s again noted. Right basilar opacity has mildly increased since CT of December 28, 2021. Left basilar o pacity has slightly improved. No pneumatosis, free air or portal venous gas is present. There are mul tiple hepatic cysts. Mild dilatation of the common bile duct, measuring 9 mm has developed since prio r CT. There are are small calculi within the distal pancreatic duct. There is no evidence for acute p ancreatitis. There is no peripancreatic or pericholecystic infiltration. Bladder is distended. This l ikely accounts for mild right collecting system and right ureteral dilatation. Multiple subcentimeter renal lesions are too small to characterize. No evidence for a bowel obstruction. Moderate amount st ool is noted within the colon and rectum. Colonic diverticulosis is noted without evidence for acute diverticulitis. Images of the pelvis are degraded by streak artifact from right hip arthroplasty. Aor tobifemoral bypass graft is patent. No suspicious osseous lesions within visualized skeletal structur es. Diverticula of the duodenum are incidentally noted. IMPRESSION: 1. Moderate amount of stool within the colon. No bowel obstruction. Colonic diverticulosis without ev idence for acute diverticulitis. 2. No evidence of metastatic disease within the abdomen or pelvis. 3. Mild biliary ductal dilatation which could be correlated with liver function tests. 4. Emphysema and bibasilar airspace opacities better depicted on the chest CT. Please see that report for further description. ACT 112: Negative or not required by law. Electronically signed by: Jm Dallas M.D. 01/23/2022 8:20 AM
[2022-01-23] MEDS: MULTIVITAMIN TAB PO SCH (08:58)
[2022-01-23] MEDS: cloNIDine HCL 0.1 MG TAB PO SCH ×2 (08:58→12:17)
[2022-01-23] MEDS: CYANOCOBALAMIN (B-12) 500 MCG TABLET PO SCH (08:58)
[2022-01-23] MEDS: levETIRAcetam 500 MG TAB PO SCH ×2 (08:58→20:51)
[2022-01-23] MEDS: PANTOprazole 40 MG TAB PO SCH (08:58)
[2022-01-23] MEDS: ASPIRIN 81 MG ECTAB PO SCH (08:58)
[2022-01-23] MEDS: FLUTICASONE/VILANTEROL 200/25MCG 14 PUFFS/INHALER INH SCH (08:59)
[2022-01-23] MEDS: CHECK fentaNYL PATCH PLACEMENT SCH ×2 (08:59→16:35)
[2022-01-23] MEDS: UMECLIDINIUM BROMIDE 62.5MCG/BLISTER 7 PUFFS/INHALER INH SCH (08:59)
[2022-01-23] MEDS ORDERED: POLYETHYLENE (MIRALAX) 17 GM PACK PO SCH (09:00)
[2022-01-23] MEDS ORDERED: amLODIPine BESYLATE 5 MG TAB PO SCH (09:00)
[2022-01-23] MEDS ORDERED: bisacodyL 10 MG SUPP PR PRN (09:04)
--- NOTE | 2022-01-23 09:12 | CT Scan Report ---
CHEST CTA for PULMONARY ARTERIES CT DOSE: HISTORY: r chest wall pain hypoxic w/ cancer TECHNIQUE: Multiaxial CT images of the chest were performed following the intravenous administration of contrast to evaluate the pulmonary arteries. Maximal intensity projection images were also obtaine d. A dose lowering technique was utilized adhering to the principles of ALARA. COMPARISON STUDY: Chest CTA 12/25/2021. FINDINGS: There are few scattered segmental and subsegmental pulmonary emboli seen within the right m iddle lobe, left upper lobe/lingula, likely within the right lower lobe pulmonary arteries. The left lower lobe segmental/subsegmental pulmonary arteries are not well visualized due to the respiratory m otion artifact. The heart remains mildly enlarged. Normal caliber thoracic aorta with no evidence for dissection. Moderate calcified plaque within the coronary arteries and aortic arch. There is mild fl attening of the interventricular septum consistent with mild right-sided heart strain. No mediastinal or hilar lymphadenopathy. There are trace bilateral pleural effusions. Limited views the upper abdom en demonstrate a few scattered hypodense lesions within the liver, unchanged. These favor cysts. Norm al adrenal glands and spleen. There is a small hiatus hernia. There is a 6.2 cm mass within the right posterior chest wall which has slightly increased in size. This previously measured 5.5 cm. This res ults in destruction and pathological fractures of the right posterior fourth and fifth ribs which is also similar to the prior study. No pneumothorax. The central airways are patent. Emphysema again not ed. Patchy densities within the lungs posteriorly are nonspecific but may represent atelectasis. A boo perimposed pneumonia could also a similar appearance in the appropriate clinical setting. IMPRESSION: 1. Bilateral segmental/subsegmental pulmonary emboli. Possible mild right-sided heart strain. 2. Slight increase in size in the 6.2 cm right posterior chest wall mass resulting in destruction/pat hologic fractures of the right posterior fourth and fifth ribs . 3. Trace bilateral pleural fusions. 4. Emphysema. 5. Patchy densities within the lungs posteriorly are nonspecific but favor atelectasis. A pneumonia c ould also have a similar appearance in the appropriate clinical setting. ACT 112: Negative or not required by law. Electronically signed by: Hebert Dickson M.D. 01/23/2022 9:11 AM
[2022-01-23] MEDS: DOCUSATE SODIUM 100 MG CAP PO SCH ×2 (10:03→20:51)
[2022-01-23] MEDS: SENNA 8.6 MG TAB PO SCH (10:03)
[2022-01-23 11:05] LABS: Partial Thromboplastin Ratio 2.3
[2022-01-23 11:10] LABS: Partial Thromboplastin Time 62.3 Seconds (21.0-31.0)
--- NOTE | 2022-01-23 15:04 | Ultrasound Report ---
US venous doppler LE BI CLINICAL HISTORY: assess for DVT TECHNIQUE: Bilateral lower extremity real-time compression venous ultrasound with Color Doppler imagi ng. Utilizing real-time ultrasonic imaging multiple real time high-resolution ultrasonic images with compression and noncompression maneuvers of the deep venous system in addition to color doppler imagi ng were performed from the common femoral vein through the proximal calf veins. COMPARISON: Comparison is made to right lower extremity ultrasound 12/25/2021 FINDINGS: Currently there is normal compressibility of the deep venous system from the common femoral vein thro ugh the proximal calf veins. No superficial venous thrombosis is identified. Evaluation of the calf vessels is somewhat limited. Impression: No evidence of deep venous thrombus. ACT 112: Negative or not required by law. Electronically signed by: Mariano Berman M.D. 01/23/2022 3:02 PM
--- NOTE | 2022-01-23 15:36 | Consultation Report ---
DATE OF SERVICE: 01/23/2022. REASON FOR CONSULTATION: Lung cancer and pulmonary embolism. HISTORY OF PRESENT ILLNESS: Mr. 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 The patient was s upposed to start concurrent chemoradiation treatment with carboplatin/paclitaxel today, but presented to the ED at [facility] on 01/22/2022 with complaints of upper back pain and short ness of breath. CT of the chest obtained while in the ED revealed bilateral segmental/subsegmental P Es with possible right-sided heart strain, slight increase in size of 6.2 cm right posterior chest wa ll mass resulting in destruction/pathologic fractures of right posterior fourth and fifth ribs as wel l as patchy densities within the lungs posteriorly favoring atelectasis. He was subsequently started on therapeutic heparin, which he remains on at this time. ALLERGIES: 1. BACLOFEN. 2. CARVEDILOL. 3. CLOZAPINE. 4. HALOPERIDOL. 5. METOCLOPRAMIDE. 6. PHENOTHIAZINES. HOME MEDICATIONS: 1. Multivitamin daily. 2. Loratadine. 3. Tylenol. 4. Aspirin. 5. Allopurinol. 6. Omeprazole. 7. Pravastatin. 8. Keppra. 9. Vitamin B12. 10. Clonidine. 11. Fentanyl patch. 12. Amlodipine. 13. Oxycodone. PAST MEDICAL HISTORY: 1. Lung cancer. 2. Gout. 3. COPD. 4. CKD stage III. 5. BPH. 6. Hypercholesterolemia. 7. Intraparenchymal hemorrhage on 03/02/2021 after a fall. PAST SURGICAL HISTORY: 1. Right hip surgery. 2. Aortofemoral bypass. 3. Aortic bifurcation bypass graft. 4. Appendectomy. 5. Tonsillectomy and adenoidectomy. FAMILY HISTORY: Noncontributory. SOCIAL HISTORY: Endorses more than [id number] history of smoking. Has quit smoking now. Denies a lcohol or illicit drug use. REVIEW OF SYSTEMS: Unremarkable except as noted in the HPI. PHYSICAL EXAMINATION: Unremarkable. IMAGING STUDIES: As noted in HPI. ASSESSMENT AND PLAN: 1. Segmental/subsegmental pulmonary embolism due to malignancy. 2. Squamous cell carcinoma of the right lung. Jackelyn gentleman, recently diagnosed with at least stage IIB squamous cell carcinoma of the right l ramon, for which he was supposed to start combination chemoimmunotherapy treatment today. He, however, presented with back pain and shortness of breath and was found to have segmental/subsegmental pulmon jonathon embolism. The patient has a history of intraparenchymal brain hemorrhage after a fall following a seizure episode in 2020. CT head obtained during this admission showed no evidence of bleeding. A gree with heparin at this time. If he does not have any evidence of bleeding over the next 24-48 gurdeep rs, can be transitioned to a direct oral anticoagulant such as Eliquis or Xarelto. We will plan to s ee him in the clinic upon discharge from hospital to commence combination chemoimmunotherapy treatmen t. Thank you for this consult. Hematology/oncology will see him upon discharge from hospital. Please f eel free to call if you have any further questions. Job ID: [id number]
--- NOTE | 2022-01-23 16:20 | Electrocardiogram Report ---
Test Reason : Blood Pressure : / mmHG Vent. Rate : 069 BPM Atrial Rate : 069 BPM P-R Int : 164 ms QRS Dur : 086 ms QT Int : 396 ms P-R-T Axes : 057 018 055 degrees QTc Int : 424 ms Poor data quality, interpretation may be adversely affected Normal sinus rhythm Normal ECG When compared with ECG of 26-DEC-2021 12:28, Vent. rate has decreased BY 42 BPM Confirmed by Allan Zhou ([id number]) on 01/23/2022 4:20:18 PM Referred By: REFERRED SELF Confirmed By:Allan Zhou
[2022-01-23] MEDS: POLYETHYLENE (MIRALAX) 17 GM PACK PO SCH ×2 (16:35→20:52)
[2022-01-23] MEDS: allopurinoL 100 MG TAB PO SCH (16:36)
--- NOTE | 2022-01-23 19:09 | Hospitalist Progress Note ---
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 Found to be hypoxic requiring 5 L nasal cannula in the ER. Also found to have bilateral segmental and subsegmental PEs on chest CT angiogram PEdue tocancer inducing hypercoagulable state Vital signs stable, though did develop hypoxia in the ED requiring nasal cannula to maintain oxygenation although this is not likely from the small PEs but more likely from atelectasis and poor inspiration effort due to pain -Checked bilateral lower extremity venous Dopplers-negative for DVT Does have history of left parietal intraparenchymal hemorrhage in February 2021, making him a higher risk candidate for anticoagulation Started on heparin drip no bolus, continue to monitor for evidence of ICH and if none, can start Xarelto tomorrow evening CBC in a.m. Oxygen supplementation as needed -Check echocardiogram given possible right heart strain seen on CT scan -Check troponin and proBNP in the morning (2) Respiratory failure with hypoxia: Plan: Was discharged to home on 2 L nasal cannula with exertion just 2 weeks ago Now requiring 5 LNC on arrival and weaned down to 3 LNC now Secondary to PEs plus atelectasis secondary to poor inspiratory effort from pain in upper back.. Do not suspect pneumonia Continue to monitor oxygen levels and continue supplemental O2 to keep pulse ox greater than 90% (3) Metastatic lung cancer (metastasis from lung to other site): Plan: Secondary to lung cancer metastatic to bone eroding through posterior fourth and fifth ribs -Also potential contribution from PEs -Is requiring a lot of breakthrough oxycodone and IV morphine -Increased fentanyl patch to 25 mcg Continue oxycodone and IV morphine as needed PT/OT ordered to evaluate functional status Follows with heme-onc and dxo-tum-uiodblsmdi oncology consultation Was due to start chemotherapy today with oncology-postpone until after discharge (4) Acute encephalopathy: Plan: Daughter reports this has been worsening especially in the last few days Most likely secondary to opioid use, severe constipation Had MRI brain last admission which was negative for metastases He has no focal neurological deficits indicating stroke and does not need repeat head imaging UA negative for infection No fevers, blood pressures are stable -Work on bowel regimen for constipation -Try to cut down on excessive oxycodone and IV morphine use -Promote good sleep/wake cycles (5) Constipation: Plan: No bowel movement 2 weeks, is opioid induced Add on MiraLAX 3 times daily, docusate twice daily, Senokot daily, and bisacodyl UT x1 now This is likely contributing to his confusion and poor p.o. intake as well (6) Anemia: Plan: Hemoglobin low at 9.1, macrocytic Previous iron studies in 12/2019 to show transferrin saturation low at 11% and he received IV Venofer last admission B12 level also low in December at 227-replacement was given -Continue B12 1000 mcg p.o. once daily -Avoid oral iron due to severe constipation Follow CBC (7) HTN (hypertension): Plan: Blood pressures are elevated Want to avoid recurrent hypertensive intracranial hemorrhage Increase amlodipine to 5 Mg p.o. twice daily Continue home clonidine 3 times daily Add on a third antihypertensive if needed (8) Intraparenchymal hemorrhage of brain: Plan: History of left parietal intraparenchymal hemorrhage with possible seizure. This was most likely due to hypertensive bleed as per neurosurgery records There was also question whether he had CAA Continue home levetiracetam Tight blood pressure control, ideally under 160 systolic -Okay to continue heparin drip for now and monitor for intracranial hemorrhage- discussed risk and benefit with patient and daughter (9) Seizure: Plan: With a history of such around the time of his first intracranial hemorrhage Continue home Keppra twice daily (10) COPD with emphysema: Plan: Noted Continue supplemental O2 as needed keep pulse ox greater than 90% Continue home maintenance inhalers with Breo Ellipta and Breo Incruse (11) Sacral wound: Plan: Likely due to being more sedentary Wound care consult appreciated Offload pressure (12) Acid reflux: Plan: With history of esophageal achalasia Continue pantoprazole Was supposed to have manometry as an outpatient Plan DVT prophylaxis: Heparin drip as above Diet: Heart healthy Dispo: Continued stay on telemetry, PT/OT to evaluate for home needs CODE STATUS: Full Discussed care with daughter on phone at length. She requests that she be called daily as her father is unable to make decisions for himself at this time. Admission and Anticipated Discharge Date Admission Date: January 22, 2022 Subjective Patient reports ongoing pain in his upper back and is requiring a lot of as needed breakthrough pain medicine with oxycodone and IV morphine. He is definitely confused and has trouble explaining his thoughts to me at times. He wants me to call his daughter. He has not had a bowel movement in almost 2 weeks. He reports no appetite and does not want to eat. I talked to his daughter on the phone who has concerns that the patient is confused and thinks he is dying. She wonders if he is asking for IV morphine because he thinks he is on hospice rather than asking for it for pain. Telemetry with normal sinus rhythm with rates in the 60s to 80s Review of Systems Review of Systems: All systems reviewed & are unremarkable except as noted in HPI & below Physical Exam Constitutional: WD/WN, vitals as above Eyes: Left eyelid with some chronic ptosis, left pupil is blown and irregular chronically and not reactive EOMI, right pupil round and reactive ENMT: external ear and nose normal, oropharynx normal Neck: trachea midline, no thyromegaly Respiratory: normal respiratory effort Auscultation: + diminished lung sounds (At the bases bilaterally); no crackles and no wheezes Cardiovascular: RRR, no murmur, no edema Chest (Breasts): Chest: normal inspection of chest Gastrointestinal (Abdomen): normal bowel sounds, soft, nontender, no hepatosplenomegaly Musculoskeletal: Extremities: extremities normal to inspection; no cyanosis and no clubbing Skin: no rashes, warm and dry Neurologic: moves all extremities and awake; no focal motor deficits Psychiatric: Orientation: alert, oriented to person, oriented to place and cooperative Lymphatic: no lymphedema Results & Data Results & Data ([facility]) Vital Signs (Past 12 Hours) Vital Signs Temp Pulse Pulse Pulse Resp BP Pulse Ox 01/23/22 15:06 37.5 C 86 16 171/83 H 93 01/23/22 12:03 37.4 C 85 18 166/74 H 97 01/23/22 07:30 73 01/23/22 07:45 73 01/23/22 07:45 01/23/22 08:00 37 C 78 20 175/70 H 94 O2 Del Method O2 Flow Rate 01/23/22 15:06 01/23/22 12:03 Room Air 01/23/22 07:30 01/23/22 07:45 01/23/22 07:45 Nasal Cannula 3 01/23/22 08:00 Room Air 3 Laboratory Results 01/23/22 01/23/22 01/23/22 Range/Units 10:17 03:31 03:31 WBC (4.8-10.8) K/ul RBC (4.63-6.08) M/uL Hgb (14.0-18.0) g/dl Hct (40.1-51.0) % MCV (80.0-100.0) fL MCH (25.0-34.0) pg MCHC (32.0-36.0) g/dL RDW Std Deviation (36.4-46.3) fL RDW Coeff of Pepe (11.5-14.5) % Plt Count (130-400) K/uL MPV (9.4-12.4) fL Immature Gran % (Auto) % Neut % (Auto) % Lymph % (Auto) % Bowie % (Auto) % Eos % (Auto) % Baso % (Auto) % Neut # (Auto) (1.4-6.5) K/uL Lymph # (Auto) (1.2-3.4) K/uL Bowie # (Auto) (0.24-0.82) K/uL Eos # (Auto) (0-0.50) K/uL Baso # (Auto) (0-0.2) K/uL Immature Gran # (Auto) (0.00-0.02) K/uL APTT 62.3 H* 28.8 (21.0-31.0) Seconds PTT Ratio 2.3 1.0 Sodium 139 (136-145) mmol/L Potassium 4.0 (3.5-5.1) mmol/L Chloride 106 (98-107) mmol/L Carbon Dioxide 26 (21-32) mmol/L Anion Gap 7 (3-11) BUN 19 (6-23) mg/dl Creatinine 1.21 (0.6-1.4) mg/dl Est Cr Clr Drug Dosing 35.4 ml/min Est GFR ( Amer) 61.6 ml/min Est GFR (Non-Af Amer) 53.1 ml/min BUN/Creatinine Ratio 15.7 (10-20) Glucose 81 (70-99(Fasting)) mg/dl Calcium 8.8 (8.5-10.1) mg/dl Magnesium 1.8 (1.7-2.4) mg/dl Total Bilirubin 0.4 (0.2-1.0) mg/dl AST 21 (13-39) U/L ALT 10 (7-52) U/L Alkaline Phosphatase 67 (34-104) U/L Total Protein 4.8 L (6.0-8.3) gm/dl Albumin 2.6 L (3.4-5.0) gm/dl Globulin 2.2 L (2.5-4.0) gm/dl Albumin/Globulin Ratio 1.2 (0.9-2) SARS-CoV-2, RNA, NAAT (NEGATIVE) 01/23/22 01/23/22 Range/Units 03:31 00:48 WBC 10.18 (4.8-10.8) K/ul RBC 2.83 L (4.63-6.08) M/uL Hgb 9.1 L (14.0-18.0) g/dl Hct 28.2 L (40.1-51.0) % MCV 99.6 (80.0-100.0) fL MCH 32.2 (25.0-34.0) pg MCHC 32.3 (32.0-36.0) g/dL RDW Std Deviation 49.2 H (36.4-46.3) fL RDW Coeff of Pepe 13.6 (11.5-14.5) % Plt Count 270 (130-400) K/uL MPV 10.6 (9.4-12.4) fL Immature Gran % (Auto) 0.7 % Neut % (Auto) 70.5 % Lymph % (Auto) 12.8 % Bowie % (Auto) 14.2 % Eos % (Auto) 1.6 % Baso % (Auto) 0.2 % Neut # (Auto) 7.18 H (1.4-6.5) K/uL Lymph # (Auto) 1.30 (1.2-3.4) K/uL Bowie # (Auto) 1.45 H (0.24-0.82) K/uL Eos # (Auto) 0.16 (0-0.50) K/uL Baso # (Auto) 0.02 (0-0.2) K/uL Immature Gran # (Auto) 0.07 H (0.00-0.02) K/uL APTT (21.0-31.0) Seconds PTT Ratio Sodium (136-145) mmol/L Potassium (3.5-5.1) mmol/L Chloride (98-107) mmol/L Carbon Dioxide (21-32) mmol/L Anion Gap (3-11) BUN (6-23) mg/dl Creatinine (0.6-1.4) mg/dl Est Cr Clr Drug Dosing ml/min Est GFR ( Amer) ml/min Est GFR (Non-Af Amer) ml/min BUN/Creatinine Ratio (10-20) Glucose (70-99(Fasting)) mg/dl Calcium (8.5-10.1) mg/dl Magnesium (1.7-2.4) mg/dl Total Bilirubin (0.2-1.0) mg/dl AST (13-39) U/L ALT (7-52) U/L Alkaline Phosphatase (34-104) U/L Total Protein (6.0-8.3) gm/dl Albumin (3.4-5.0) gm/dl Globulin (2.5-4.0) gm/dl Albumin/Globulin Ratio (0.9-2) SARS-CoV-2, RNA, NAAT NEGATIVE (NEGATIVE) Diagnostic Findings Abdomen/Pelvis CT 01/22/22 18:17 CT OF THE ABDOMEN AND PELVIS WITH CONTRAST CLINICAL HISTORY: Abdominal pain. Lung cancer. COMPARISON STUDY: CT of the abdomen and pelvis December 28, 2021. TECHNIQUE: Following IV administration of 100 mL of Optiray, axial images of the abdomen and pelvis were obtained from the lung bases to the proximal femurs. Images were reviewed in the axial, sagittal, and coronal planes. IV contrast was administered without complication. Automated exposure control was utilized for the study. A dose lowering technique was utilized adhering to the principles of ALARA. CT DOSE: 1291.48 mGy.cm FINDINGS: Please note that the chest CT will be reported separately. Small hiatal hernia. Emphysema is again noted. Right basilar opacity has mildly increased since CT of December 28, 2021. Left basilar opacity has slightly improved. No pneumatosis, free air or portal venous gas is present. There are multiple hepatic cysts. Mild dilatation of the common bile duct, measuring 9 mm has developed since prior CT. There are are small calculi within the distal pancreatic duct. There is no evidence for acute pancreatitis. There is no peripancreatic or pericholecystic infiltration. Bladder is distended. This likely accounts for mild right collecting system and right ureteral dilatation. Multiple subcentimeter renal lesions are too small to characterize. No evidence for a bowel obstruction. Moderate amount stool is noted within the colon and rectum. Colonic diverticulosis is noted without evidence for acute diverticulitis. Images of the pelvis are degraded by streak artifact from right hip arthroplasty. Aortobifemoral bypass graft is patent. No suspicious osseous lesions within visualized skeletal structures. Diverticula of the duodenum are incidentally noted. IMPRESSION: 1. Moderate amount of stool within the colon. No bowel obstruction. Colonic diverticulosis without evidence for acute diverticulitis. 2. No evidence of metastatic disease within the abdomen or pelvis. 3. Mild biliary ductal dilatation which could be correlated with liver function tests. 4. Emphysema and bibasilar airspace opacities better depicted on the chest CT. Please see that report for further description. ACT 112: Negative or not required by law. Electronically signed by: Jm Dallas M.D. 01/23/2022 8:20 AM Chest CTA 01/22/22 18:17 CHEST CTA for PULMONARY ARTERIES CT DOSE: HISTORY: r chest wall pain hypoxic w/ cancer TECHNIQUE: Multiaxial CT images of the chest were performed following the intravenous administration of contrast to evaluate the pulmonary arteries. Maximal intensity projection images were also obtained. A dose lowering technique was utilized adhering to the principles of ALARA. COMPARISON STUDY: Chest CTA 12/25/2021. FINDINGS: There are few scattered segmental and subsegmental pulmonary emboli seen within the right middle lobe, left upper lobe/lingula, likely within the right lower lobe pulmonary arteries. The left lower lobe segmental/subsegmental pulmonary arteries are not well visualized due to the respiratory motion artifact. The heart remains mildly enlarged. Normal caliber thoracic aorta with no evidence for dissection. Moderate calcified plaque within the coronary arteries and aortic arch. There is mild flattening of the interventricular septum consistent with mild right-sided heart strain. No mediastinal or hilar l ymphadenopathy. There are trace bilateral pleural effusions. Limited views the upper abdomen demonstrate a few scattered hypodense lesions within the liver, unchanged. These favor cysts. Normal adrenal glands and spleen. There is a small hiatus hernia. There is a 6.2 cm mass within the right posterior chest wall which has slightly increased in size. This previously measured 5.5 cm. This results in destruction and pathological fractures of the right posterior fourth and fifth ribs which is also similar to the prior study. No pneumothorax. The central airways are patent. Emphysema again noted. Patchy densities within the lungs posteriorly are nonspecific but may represent atelectasis. A superimposed pneumonia could also a similar appearance in the appropriate clinical setting. IMPRESSION: 1. Bilateral segmental/subsegmental pulmonary emboli. Possible mild right-sided heart strain. 2. Slight increase in size in the 6.2 cm right posterior chest wall mass resulting in destruction/pathologic fractures of the right posterior fourth and fifth ribs . 3. Trace bilateral pleural fusions. 4. Emphysema. 5. Patchy densities within the lungs posteriorly are nonspecific but favor atelectasis. A pneumonia could also have a similar appearance in the appropriate clinical setting. ACT 112: Negative or not required by law. Electronically signed by: Hebert Dickson M.D. 01/23/2022 9:[address] 01/22/22 18:[address] DOSE: HISTORY: confusion TECHNIQUE: Multiaxial CT images of the head were performed without the use of intravenous contrast. Automated exposure control was utilized for this study. A dose lowering technique was utilized adhering to the principles of ALARA. Comparison: Head CT 03/02/2021. Findings: The paranasal sinuses and mastoid air cells are clear. The calvarium and skull base are intact. There is no mass, hematoma, midline shift, acute infarct. White matter hypodensity is nonspecific but suggestive of microvascular ischemic change. The ventricles and sulci demonstrate mild age-related involutional changes. There is an old small right frontal lobe infarct, unchanged. Persistent hyperdense material within the left globe again noted. Impression: No acute intracranial abnormality. ACT 112: Negative or not required by law. Electronically signed by: Hebert Dickson M.D. 01/23/2022 7:20 AM Venous Doppler Study 01/23/22 10:46 US venous doppler LE BI CLINICAL HISTORY: assess for DVT TECHNIQUE: Bilateral lower extremity real-time compression venous ultrasound with Color Doppler imaging. Utilizing real-time ultrasonic imaging multiple real time high-resolution ultrasonic images with compression and noncompression maneuvers of the deep venous system in addition to color doppler imaging were performed from the common femoral vein through the proximal calf veins. COMPARISON: Comparison is made to right lower extremity ultrasound 12/25/2021 FINDINGS: Currently there is normal compressibility of the deep venous system from the common femoral vein through the proximal calf veins. No superficial venous thrombosis is identified. Evaluation of the calf vessels is somewhat limited. Impression: No evidence of deep venous thrombus. ACT 112: Negative or not required by law. Electronically signed by: Mariano Berman M.D. 01/23/2022 3:02 PM PG Care Time/CCT Total # of Minutes Spent Total Time Spent with Patient: Total time spent is greater than 50% in coordination of care (as documented) at patient's floor/unit and/or counseling patient: Coding Level of Care Code 83649 Subseq Hosp Care Lvl 3 Diagnoses Pulmonary embolism I26.99 Respiratory failure with hypoxia J96.91 Metastatic lung cancer (metastasis from lung to other site) C34.90 Acute encephalopathy G93.40 Constipation K59.00 Anemia D64.9 HTN (hypertension) I10 Intraparenchymal hemorrhage of brain I61.9 Seizure R56.9 COPD with emphysema J43.9 Sacral wound S31.000A Acid reflux K21.9
[2022-01-23] MEDS ORDERED: bisacodyL 10 MG SUPP PR STA (19:18)
[2022-01-23] MEDS: fentaNYL 25 MCG/HR TDSY TD SCH (20:43)
[2022-01-23] MEDS: amLODIPine BESYLATE 5 MG TAB PO SCH (20:50)
[2022-01-23] MEDS: PRAVASTATIN SOD 40 MG TAB PO SCH (20:52)
[2022-01-23] MEDS ORDERED: cloNIDine HCL 0.1 MG TAB PO SCH (21:00)
[2022-01-24] MEDS: CHECK fentaNYL PATCH PLACEMENT SCH ×3 (00:17→16:10)
[2022-01-24] MEDS: HEPARIN SODIUM/DEXTROSE 25,000 UNITS/500 ML BAG IV SCH (04:28)
[2022-01-24 06:49] LABS: Basophils # (auto) 0.04 K/uL (0-0.2); Basophils % (auto) 0.4 %; Eosinophils # (auto) 0.06 K/uL (0-0.50); Eosinophils % (auto) 0.5 %; Hematocrit (blood only) 29.5 % (40.1-51.0); Hemoglobin 9.6 g/dl (14.0-18.0); Immature Granulocytes # (auto) 0.08 K/uL (0.00-0.02); Immature Granulocytes % (auto) 0.7 %; Lymphocytes % (auto) 17.8 %; Mean Corpuscular Hemoglobin 31.8 pg (25.0-34.0); Mean Corpuscular Hgb Conc 32.5 g/dL (32.0-36.0); Mean Corpuscular Volume 97.7 fL (80.0-100.0); Mean Platelet Volume 10.5 fL (9.4-12.4); Monocytes # (auto) 1.64 K/uL (0.24-0.82); Monocytes % (auto) 14.6 %; Neutrophils # (auto) 7.39 K/uL (1.4-6.5); Platelet Count 239 K/uL (130-400); RDW Coefficient of Variation 13.4 % (11.5-14.5); RDW Standard Deviation 47.8 fL (36.4-46.3); Red Blood Count 3.02 M/uL (4.63-6.08); White Blood Count 11.21 K/ul (4.8-10.8)
[2022-01-24 07:18] LABS: Albumin Level 2.6 gm/dl (3.4-5.0); BUN Creatinine Ratio 13.4 (10-20); Bilirubin Direct 0.2 mg/dl (0-0.2); Bilirubin,Total 0.5 mg/dl (0.2-1.0); Calcium 9.1 mg/dl (8.5-10.1); Est GFR (African American) 62.8 ml/min; Est GFR (Non-African American) 54.2 ml/min; Partial Thromboplastin Ratio > 5.1; Potassium 3.7 mmol/L (3.5-5.1); Total Protein 4.7 gm/dl (6.0-8.3)
[2022-01-24 07:20] LABS: Troponin I High Sensitivity 38.3 pg/ml (0-20)
[2022-01-24 07:28] LABS: Partial Thromboplastin Time > 139.0 Seconds (21.0-31.0)
--- NOTE | 2022-01-24 07:40 | Hospitalist Progress Note ---
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 Found to be hypoxic requiring 5 L nasal cannula in the ER. Also found to have bilateral segmental and subsegmental PEs on chest CT angiogram PEdue tocancer inducing hypercoagulable state Vital signs stable, though did develop hypoxia in the ED requiring nasal cannula to maintain oxygenation although this is not likely from the small PEs but more likely from atelectasis and poor inspiration effort due to pain Checked bilateral lower extremity venous Dopplers -negative for DVT History of left parietal intraparenchymal hemorrhage in February 2021, making him a higher risk candidate for anticoagulation Started heparin gtt, no evidence for ICH, risks discussed regarding bleeding and patient/family opted for treatment plans to transition to xarelto 15mg BID x 21 days then 20mg daily after Supplemental O2 as needed -- on 3L w/ SpO2 92%, titrate to maintain encouraged incentive spirometer ECHO w/ evidence elevated RVSP at 30-40mmHg and new mild tricuspid regurgitation now present compared to December 2021 study. NO WMA. EF 60-70% Trop decreased compared to prior BNP elevated however breathing stable, not significantly volume overloaded on exam and holding off diuretics for now Monitor for any bleeding on Xarelto, continue to monitor on telemetry Called to update Daughter, voicemailbox full. Continued inpatient stay plans for RT tomorrow PT/OT consulted -- daughter w/ concerns for deconditioning and wanting rehab. Patient agreeable (2) Respiratory failure with hypoxia: Plan: Was discharged to home on 2 L nasal cannula with exertion just 2 weeks ago Now requiring 5 LNC on arrival and weaned down to 3 LNC now Secondary to PEs plus atelectasis secondary to poor inspiratory effort from pain in upper back.. Do not suspect pneumonia Continue to monitor oxygen levels and continue supplemental O2 to keep pulse ox greater than 90% Stable on 3L, titrate to maintain SpO2 90% or greater refusing inhalers -- recommend compliance (prior refusing as well) (3) Metastatic lung cancer (metastasis from lung to other site): Plan: Secondary to lung cancer metastatic to bone eroding through posterior fourth and fifth ribs -Also potential contribution from PEs -Was requiring a lot of breakthrough oxycodone and IV morphine Continue oxycodone and IV morphine as needed (d/c 4mg dose) -Increased fentanyl patch to 25 mcg seems to be working, no additional PRN dosing required for today and rec continuing 25mcg dose at discharge PT/OT consulted -- likely benefit from some rehab Oncology consulted as was to begin chemo today, wanting to coordinate closely with RT Discussed with Dr Ndiaye and plans for RT for tomorrow Can arrange f/u for chemo from rehab if dc in next 24-48 hours (4) Acute encephalopathy: Plan: Daughter reports this has been worsening especially in the last few days Most likely secondary to opioid use, severe constipation Had MRI brain last admission which was negative for metastases He has no focal neurological deficits indicating stroke and does not need repeat head imaging UA negative for infection No fevers, blood pressures are stable B12 deficiency -Work on bowel regimen for constipation -Try to cut down on excessive oxycodone and IV morphine use -Promote good sleep/wake cycles +BM 01/23, continue bowel regimen, additional suppository ordered for today Appears improved mentally, alert to person/place/year, answering questions appropriately Monitor (5) Constipation: Plan: No bowel movement 2 weeks, is opioid induced Add on MiraLAX 3 times daily, docusate twice daily, Senokot daily, and bisacodyl WI x1 now This is likely contributing to his confusion and poor p.o. intake as well Improvement in PO intake with +BM 01/23 and monitor bowels with decrease PO opiates and increased fentanyl patch. (6) Anemia: Plan: Hemoglobin low at 9.1, macrocytic Previous iron studies in 12/2019 to show transferrin saturation low at 11% and he received IV Venofer last admission B12 level also low in December at 227-replacement was given -Continue B12 1000 mcg p.o. once daily -Avoid oral iron due to severe constipation Hgb 9.6 and stable on AC Monitor in AM (7) HTN (hypertension): Plan: Blood pressures are elevated Want to avoid recurrent hypertensive intracranial hemorrhage Increased amlodipine to 5 Mg p.o. twice daily Continue home clonidine--> changed to 0.2mg BID (was getting 1mg, 1mg, 2mg through day) as he takes at home BPs stable 124/66 Maintain good BP control to avoid recurrent HTN ICH Monitor (8) Intraparenchymal hemorrhage of brain: Plan: History of left parietal intraparenchymal hemorrhage with possible seizure. This was most likely due to hypertensive bleed as per neurosurgery records There was also question whether he had CAA Continue home levetiracetam Tight blood pressure control, ideally under 160 systolic (BPs controlled) Heparin gtt -> xarelto for tonight (01/24) Prior provider discussed risk and benefit with patient and daughter, attempted update but VM full (9) Seizure: Plan: With a history of such around the time of his first intracranial hemorrhage Continue home Keppra twice daily (10) COPD with emphysema: Plan: Noted Continue supplemental O2 as needed keep pulse ox greater than 90% Continue home maintenance inhalers with Breo Ellipta and Breo Incruse had been refusing, encourage compliance (refused last admit as well) (11) Sacral wound: Plan: Likely due to being more sedentary Wound care consult appreciated Offload pressure (12) Acid reflux: Plan: With history of esophageal achalasia Continue pantoprazole Was supposed to have manometry as an outpatient --> will need outpt GI f/u Amlodipine increased to 5mg BID which hopefully should help with any esophageal motility as well Plan DVT prophylaxis: Heparin drip as above transition to Xarelto tonight Diet: Heart healthy Dispo: Continued stay on telemetry, PT/OT to evaluate for home needs CODE STATUS: Full Discussed care with daughter on phone at length 01/23. She requests that she be called daily as her father is unable to make decisions for himself at this time. Attempted call, voicemail full, will attempt calling again later nelson spoke with Diamond 01/24 Admission and Anticipated Discharge Date Admission Date: January 22, 2022 Subjective Eval this morning, doing well. Not sure why he was brought in but knows he wasn't moving his bowels and that he had a large bowel movement last night. Breathing stable on 3L. Denies lightheaded/dizziness presently. Improvement in appetite and had coffee/orange juice/scrambled eggs and some toast this morning. Remembers seeing Dr Alcantar and plans for chemo/radiation, will plan for radiation tomorrow. Discussed weakness/deconditioning and daughter Michelle wants to look into rehab who can assist with coordination of getting him to oncology appt for chemotherapy. He endorses clonidine 0.2mg BID -- discussed BP on the lower side earlier and will keep for now but consider increasing back to usual dose tomorrow. Denies fever/chills, headache, chest pain, shortness of breath, abdominal pain or nausea. Does have some pain to his heels, ravi pads in place. Discussed monitoring on the heparin gtt but if no issues will plan to d/c on the xarelto for the subsegmental PEs on imaging. Also discussed increased fentanyl patch for baseline control and the oxycodone only to bed used for breakthrough. He is still wanting to undergo treatment and plan discussed in place. Discussed with Dr Ndiaye from rad/onc and will plan for RT to begin tomorrow. Review of Systems Review of Systems: All systems reviewed & are unremarkable except as noted in HPI & below Physical Exam Physical Exam: General: chronically ill appearing, resting up in bed eating breakfast, NAD HEENT; head normocephalic, left eyelid ptosis (chronic), left pupil blown (chronic, hx retinal reattachment), right pupil round and reactive (blind) HEENT: mmm, trachea midline without deviation Chest: right ribs tender to palpation (site of tumor) Resp: diminished in the bases with associated crackles, on 3L NC CV: RRR, faint murmur, no pitting edema/calf tenderness GI:+BS, less distention, soft, nontender MSK/Neuro: moves all extremities, no focal deficits linoleum tile layer strength intact, equal, follows commands, no slurred speech or facial droop Psych: alert to person/place, time, pleasant and cooperative Results & Data Results & Data ([facility]) Vital Signs (Past 12 Hours) Vital Signs Temp Pulse Pulse Resp BP Pulse Ox O2 Del Method 01/24/22 07:32 36.8 C 76 76 H 130/53 L 95 Nasal Cannula 01/24/22 06:34 87 01/24/22 03:54 36.8 C 74 18 109/55 L 94 Nasal Cannula 01/23/22 23:18 36.6 C 93 H 18 174/64 H 98 Nasal Cannula 01/23/22 21:10 Nasal Cannula O2 Flow Rate 01/24/22 07:32 3 01/24/22 06:34 01/24/22 03:54 3 01/23/22 23:18 3 01/23/22 21:10 3 Laboratory Results 01/24/22 01/24/22 01/24/22 Range/Units 06:24 06:24 06:24 WBC 11.21 H (4.8-10.8) K/ul RBC 3.02 L (4.63-6.08) M/uL Hgb 9.6 L (14.0-18.0) g/dl Hct 29.5 L (40.1-51.0) % MCV 97.7 (80.0-100.0) fL MCH 31.8 (25.0-34.0) pg MCHC 32.5 (32.0-36.0) g/dL RDW Std Deviation 47.8 H (36.4-46.3) fL RDW Coeff of Pepe 13.4 (11.5-14.5) % Plt Count 239 (130-400) K/uL MPV 10.5 (9.4-12.4) fL Immature Gran % (Auto) 0.7 % Neut % (Auto) 66.0 % Lymph % (Auto) 17.8 % Wheeler % (Auto) 14.6 % Eos % (Auto) 0.5 % Baso % (Auto) 0.4 % Neut # (Auto) 7.39 H (1.4-6.5) K/uL Lymph # (Auto) 2.00 (1.2-3.4) K/uL Wheeler # (Auto) 1.64 H (0.24-0.82) K/uL Eos # (Auto) 0.06 (0-0.50) K/uL Baso # (Auto) 0.04 (0-0.2) K/uL Immature Gran # (Auto) 0.08 H (0.00-0.02) K/uL APTT (21.0-31.0) Seconds PTT Ratio Sodium 139 (136-145) mmol/L Potassium 3.7 (3.5-5.1) mmol/L Chloride 104 (98-107) mmol/L Carbon Dioxide 29 (21-32) mmol/L Anion Gap 6 (3-11) BUN 16 (6-23) mg/dl Creatinine 1.19 (0.6-1.4) mg/dl Est Cr Clr Drug Dosing 37.0 ml/min Est GFR ( Amer) 62.8 ml/min Est GFR (Non-Af Amer) 54.2 ml/min BUN/Creatinine Ratio 13.4 (10-20) Glucose 94 (70-99(Fasting)) mg/dl Calcium 9.1 (8.5-10.1) mg/dl Total Bilirubin 0.5 (0.2-1.0) mg/dl Direct Bilirubin 0.2 (0-0.2) mg/dl AST 17 (13-39) U/L ALT 9 (7-52) U/L Alkaline Phosphatase 65 (34-104) U/L Troponin I High Sens 38.3 H D (0-20) pg/ml B-Natriuretic Peptide 537 H (0-100) pg/ml Total Protein 4.7 L (6.0-8.3) gm/dl Albumin 2.6 L (3.4-5.0) gm/dl 01/24/22 01/23/22 Range/Units 06:24 10:17 WBC (4.8-10.8) K/ul RBC (4.63-6.08) M/uL Hgb (14.0-18.0) g/dl Hct (40.1-51.0) % MCV (80.0-100.0) fL MCH (25.0-34.0) pg MCHC (32.0-36.0) g/dL RDW Std Deviation (36.4-46.3) fL RDW Coeff of Pepe (11.5-14.5) % Plt Count (130-400) K/uL MPV (9.4-12.4) fL Immature Gran % (Auto) % Neut % (Auto) % Lymph % (Auto) % Wheeler % (Auto) % Eos % (Auto) % Baso % (Auto) % Neut # (Auto) (1.4-6.5) K/uL Lymph # (Auto) (1.2-3.4) K/uL Wheeler # (Auto) (0.24-0.82) K/uL Eos # (Auto) (0-0.50) K/uL Baso # (Auto) (0-0.2) K/uL Immature Gran # (Auto) (0.00-0.02) K/uL APTT > 139.0 H* 62.3 H* (21.0-31.0) Seconds PTT Ratio > 5.1 2.3 Sodium (136-145) mmol/L Potassium (3.5-5.1) mmol/L Chloride (98-107) mmol/L Carbon Dioxide (21-32) mmol/L Anion Gap (3-11) BUN (6-23) mg/dl Creatinine (0.6-1.4) mg/dl Est Cr Clr Drug Dosing ml/min Est GFR ( Amer) ml/min Est GFR (Non-Af Amer) ml/min BUN/Creatinine Ratio (10-20) Glucose (70-99(Fasting)) mg/dl Calcium (8.5-10.1) mg/dl Total Bilirubin (0.2-1.0) mg/dl Direct Bilirubin (0-0.2) mg/dl AST (13-39) U/L ALT (7-52) U/L Alkaline Phosphatase (34-104) U/L Troponin I High Sens (0-20) pg/ml B-Natriuretic Peptide (0-100) pg/ml Total Protein (6.0-8.3) gm/dl Albumin (3.4-5.0) gm/dl PG Care Time/CCT Total # of Minutes Spent Total Time Spent with Patient: Total time spent is greater than 50% in coordination of care (as documented) at patient's floor/unit and/or counseling patient: Coding Level of Care Code 16806 Subseq Hosp Care Lvl 3 Diagnoses Pulmonary embolism I26.99 Respiratory failure with hypoxia J96.91 Metastatic lung cancer (metastasis from lung to other site) C34.90 Acute encephalopathy G93.40 Constipation K59.00 Anemia D64.9 HTN (hypertension) I10 Intraparenchymal hemorrhage of brain I61.9 Seizure R56.9 COPD with emphysema J43.9 Sacral wound S31.000A Acid reflux K21.9
[2022-01-24] MEDS: cloNIDine HCL 0.1 MG TAB PO SCH ×3 (07:54→20:58)
[2022-01-24] MEDS: SENNA 8.6 MG TAB PO SCH (07:54)
[2022-01-24] MEDS: amLODIPine BESYLATE 5 MG TAB PO SCH ×2 (07:55→20:58)
[2022-01-24] MEDS: ASPIRIN 81 MG ECTAB PO SCH (07:55)
[2022-01-24] MEDS: CYANOCOBALAMIN (B-12) 500 MCG TABLET PO SCH (07:55)
[2022-01-24] MEDS: MULTIVITAMIN TAB PO SCH (07:55)
[2022-01-24] MEDS: PANTOprazole 40 MG TAB PO SCH (07:56)
[2022-01-24] MEDS: levETIRAcetam 500 MG TAB PO SCH ×2 (07:56→20:57)
[2022-01-24] MEDS: DOCUSATE SODIUM 100 MG CAP PO SCH ×2 (07:56→20:57)
[2022-01-24] MEDS: POLYETHYLENE (MIRALAX) 17 GM PACK PO SCH ×3 (07:57→20:59)
[2022-01-24] MEDS: FLUTICASONE/VILANTEROL 200/25MCG 14 PUFFS/INHALER INH SCH (08:02)
[2022-01-24] MEDS: UMECLIDINIUM BROMIDE 62.5MCG/BLISTER 7 PUFFS/INHALER INH SCH (08:02)
[2022-01-24 09:37] LABS: Partial Thromboplastin Ratio 2.4
[2022-01-24 09:43] LABS: Partial Thromboplastin Time 66.2 Seconds (21.0-31.0)
--- NOTE | 2022-01-24 12:48 | XCELERA ---
[id number]
[2022-01-24] MEDS ORDERED: bisacodyL 10 MG SUPP PR STA (14:39)
[2022-01-24] MEDS: allopurinoL 100 MG TAB PO SCH (16:13)
[2022-01-24 17:04] LABS: Partial Thromboplastin Time 54.7 Seconds (21.0-31.0)
[2022-01-24] MEDS ORDERED: STOP HEPARIN ORDER ONE (20:00)
[2022-01-24] MEDS: oxyCODONE HCL IR 5 MG TAB (IMMEDIATE RELEASE) PO PRN (20:56)
[2022-01-24] MEDS: PRAVASTATIN SOD 40 MG TAB PO SCH (20:58)
[2022-01-24] MEDS: RIVAROXABAN 15 MG TAB PO SCH (20:59)
[2022-01-25 06:27] LABS: Basophils # (auto) 0.03 K/uL (0-0.2); Basophils % (auto) 0.3 %; Eosinophils # (auto) 0.13 K/uL (0-0.50); Eosinophils % (auto) 1.3 %; Hematocrit (blood only) 27.9 % (40.1-51.0); Hemoglobin 9.1 g/dl (14.0-18.0); Immature Granulocytes # (auto) 0.05 K/uL (0.00-0.02); Immature Granulocytes % (auto) 0.5 %; Lymphocytes # (auto) 1.77 K/uL (1.2-3.4); Mean Corpuscular Hemoglobin 31.6 pg (25.0-34.0); Mean Corpuscular Hgb Conc 32.6 g/dL (32.0-36.0); Mean Corpuscular Volume 96.9 fL (80.0-100.0); Mean Platelet Volume 10.5 fL (9.4-12.4); Monocytes # (auto) 1.44 K/uL (0.24-0.82); Monocytes % (auto) 14.6 %; Neutrophils # (auto) 6.42 K/uL (1.4-6.5); Neutrophils % (auto) 65.3 %; Platelet Count 222 K/uL (130-400); RDW Coefficient of Variation 13.2 % (11.5-14.5); RDW Standard Deviation 47.4 fL (36.4-46.3); Red Blood Count 2.88 M/uL (4.63-6.08); White Blood Count 9.84 K/ul (4.8-10.8)
[2022-01-25 06:52] LABS: BUN Creatinine Ratio 13.6 (10-20); Calcium 9.1 mg/dl (8.5-10.1); Creatinine Clr Calc Pharmacy 42.8 ml/min; Est GFR (African American) 74.8 ml/min; Est GFR (Non-African American) 64.6 ml/min; Magnesium 1.6 mg/dl (1.7-2.4); Potassium 3.7 mmol/L (3.5-5.1)
[2022-01-25 06:55] LABS: Troponin I High Sensitivity 27.8 pg/ml (0-20)
[2022-01-25] MEDS: MoRPHine SULFATE 2 MG/ML CARP IV PRN ×3 (07:43→18:39)
[2022-01-25] MEDS: CHECK fentaNYL PATCH PLACEMENT SCH ×3 (07:43→16:40)
--- NOTE | 2022-01-25 08:04 | Hospitalist Progress Note ---
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 Found to be hypoxic requiring 5 L nasal cannula in the ER. Also found to have bilateral segmental and subsegmental PEs on chest CT angiogram PEdue tocancer inducing hypercoagulable state Vital signs stable, though did develop hypoxia in the ED requiring nasal cannula to maintain oxygenation although this is not likely from the small PEs but more likely from atelectasis and poor inspiration effort due to pain Checked bilateral lower extremity venous Dopplers -negative for DVT History of left parietal intraparenchymal hemorrhage in February 2021, making him a higher risk candidate for anticoagulation Initially started heparin gtt, no evidence for ICH, risks discussed regarding bleeding and patient/family opted for treatment monitored for 24-48 hours, no evidence for bleeding and transitioned to Xarelto 01/24 continue 15mg BID x 21 days, then 20mg daily NSR in 70-80s on monitor -- continue monitor on tele for now Supplemental O2 as needed -- on 3L w/ SpO2 94%, titrate to maintain sat 88-90% encouraged incentive spirometer, he is using REFUSING inhalers --> STRONGLY ENCOURAGED. He didn't like elevated HR in past. ECHO w/ evidence elevated RVSP at 30-40mmHg and new mild tricuspid regurgitation now present compared to December 2021 study. NO WMA. EF 60-70% --Trop decreased compared to prior --BNP elevated however breathing stable, not significantly volume overloaded on exam and holding off diuretics for now on 3L. Pt/ot consulted -- rec rehab --called Dr Travis this morning as Cm reported unable to take on chemo --given chemo once/weekly Dr Travis said ok, however unfortunately need RT daily x 33 days (first RT 01/25) and unable to accommodate --family able to assist with transportation, CM following --additional referrals to SNF and able to transport when bed available Called to update Daughter Diamond 01/25. PLEASE UPDATE DAILY (2) Respiratory failure with hypoxia: Plan: Was discharged to home on 2 L nasal cannula with exertion just 2 weeks ago Now requiring 5 LNC on arrival and weaned down to 3 LNC now Secondary to PEs plus atelectasis secondary to poor inspiratory effort from pain in upper back.. Do not suspect pneumonia Continue to monitor oxygen levels and continue supplemental O2 to keep pulse ox greater than 90% Stable on 3L and O2 94% DENIES SOB --> titrate to maintain SpO2 90% or greater refusing inhalers -- recommend compliance (prior refusing as we given tachycardial) (3) Metastatic lung cancer (metastasis from lung to other site): Plan: Secondary to lung cancer metastatic to bone eroding through posterior fourth and fifth ribs -Also potential contribution from PEs -Was requiring a lot of breakthrough oxycodone and IV morphine Continue oxycodone and IV morphine as needed (d/c 4mg dose) -Increased fentanyl patch to 25 mcg seems to be effective but using Oxycodone prn/morphine for breakthrough decreased morphine to 1mg IV as needed to prevent constipation has been using oxycodone 1-2x/daily (reported using up to 6 times daily CIRCLE EDGER) PT/OT rec rehab --> see issues above RT provided for today with Dr Ndiaye, continue daily x 33 days Oncology on consult Chemo to begin next week, hopefully will be at SNF in next 24-48 hours and can coordinate transportation with family (4) Acute encephalopathy: Plan: Daughter reports this has been worsening especially in the last few days Most likely secondary to opioid use, severe constipation Had MRI brain last admission which was negative for metastases He has no focal neurological deficits indicating stroke and does not need repeat head imaging UA negative for infection No fevers, blood pressures are stable B12 deficiency -- replacement continued (got IM last admit) Bowel regimen --> +BM 01/23, 2BM 01/24 continue bowel regimen Miralax TID, suppository changed to scheduled promote good sleep/wake --> didn't sleep great last night but slept after RT this morning and pain control. did not want anything for sleep. Limit opiates --> decreased morphine to 1mg IV for breakthrough, using oxycodone 10mg 1- 2/daily with increased fentanyl patch to 25mcg. can increase if needed/requiring increased PO for breakthrough however reported pain well controlled Appears improved mentally, alert to person/place/year, answering questions appropriately Of note, in the last two years, possible underlying depression, especially in light of new cancer diagnosis within the past month -- mood appears stable, but consideration for adding medication like Remeron for mood/sleep/appetite. can further discuss with patient/daughter tomorrow if sleep still issue Monitor (5) Constipation: Plan: No bowel movement 2 weeks, is opioid induced Add on MiraLAX 3 times daily, docusate twice daily, Senokot daily, and bisacodyl OR x1 now This is likely contributing to his confusion and poor p.o. intake as well PO intake improved 01/24, moving bowels as above and continued bowel regimen with limit PO opiates as needed and increased fentanyl patch (6) Anemia: Plan: Hemoglobin low at 9.1, macrocytic Previous iron studies in 12/2019 to show transferrin saturation low at 11% and he received IV Venofer last admit 200mg IV x 2, could consider additional dose/repeat values if needed B12 level also low in December at 227-replacement was given -Continue B12 1000 mcg p.o. once daily -Avoid oral iron due to severe constipation Hgb 9.1 and stable on AC and some slight volume overload/elevated BNP but breathing stable and holding off diuretic. consider low dose of Lasix for tomorrow if needed Monitor in AM (7) HTN (hypertension): Plan: Blood pressures are elevated prior Want to avoid recurrent hypertensive intracranial hemorrhage Increased amlodipine to 5 Mg p.o. twice daily Continue home clonidine --> changed to 0.2mg BID 01/24 (was getting 1mg, 1mg, 2mg through day) as he takes at home. CONFIRMED this dosing with daughter on phone 01/24, he does take 0.2mg BID BP stable 135/61 and maintain good BP control to avoid recurrent HTN ICH (8) Intraparenchymal hemorrhage of brain: Plan: History of left parietal intraparenchymal hemorrhage with possible seizure. This was most likely due to hypertensive bleed as per neurosurgery records There was also question whether he had CAA Continue home levetiracetam Tight blood pressure control, ideally under 160 systolic (BPs controlled) Heparin gtt -> xarelto started PM 01/24 for tonight Discussed risk and benefit with patient and daughter. Of notem confirmed with Dr Iglesias about 81mg ASA daily given Bilateral Lower Extremity Runoff, Percutaneous Transluminal Angioplasty of Right Superficial Femoral Artery(Right)08/18 recommends continuing asa 81mg daily in addition to his xarelto (9) Seizure: Plan: With a history of such around the time of his first intracranial hemorrhage Continue home Keppra twice daily (10) COPD with emphysema: Plan: Noted Continue supplemental O2 as needed keep pulse ox greater than 90% Continue home maintenance inhalers with Breo Ellipta and Breo Incruse had been refusing, encourage compliance (refused last admit as well) -- doesn't want to take (11) Sacral wound: Plan: Likely due to being more sedentary, also with pressure sores to heels (not infected appearing, ravi pads intact) Wound care consult appreciated Offload pressure (12) Acid reflux: Plan: With history of esophageal achalasia (last admit with food impaction requiring EGD w/ Dr Vyas) Continue pantoprazole Was supposed to have manometry as an outpatient --> will need outpt GI f/u Amlodipine increased to 5mg BID which hopefully should help with any esophageal motility as well (13) Hypomagnesemia: Plan: mag 1.6 --> 2gm IV ordered monitor in AM Plan DVT prophylaxis: Heparin --> Xarelto as above Dispo: Continued stay on telemetry, PT/OT rec rehab. CM following. Continued RT while inpatient, pain control/bowel regimen Hopefully d/c in next 24-48 hours to rehab/SNF and family to help coordinate transportation for treatment Chemo to start next week, weekly [id number] Updated daughter 01/25 --> please update daily as she helps to coordinate care and is decision maker in case of any confusion AMS Remains full code Admission and Anticipated Discharge Date Admission Date: January 22, 2022 Subjective Patient evaluated this afternoon. Had first RT this morning, went well. Resting through most of the morning, states had another BM last evening. Skipped breakfast as he was sleeping but not hungry at the moment but anticipating supper and reports much improvement in appetite. Knows in [facility], year 2021. appears alert/oriented, at baseline. issues with [facility] for rehab given RT. Updated daughter by phone, family agreeable for transportation for treatments. CM sending referrals to other facilities. Review of Systems Review of Systems: All systems reviewed & are unremarkable except as noted in HPI & below Results & Data Results & Data ([facility]) Vital Signs (Past 12 Hours) Vital Signs Temp Pulse Pulse Pulse Resp BP Pulse Ox 01/25/22 07:37 68 01/25/22 06:49 36.6 C 72 18 136/63 93 01/25/22 04:57 36.7 C 79 19 158/65 H 95 01/24/22 21:07 01/25/22 04:04 70 01/24/22 23:09 36.9 C 68 18 125/55 L 95 O2 Del Method O2 Flow Rate 01/25/22 07:37 01/25/22 06:49 Nasal Cannula 01/25/22 04:57 Nasal Cannula 3 01/24/22 21:07 Nasal Cannula 3 01/25/22 04:04 01/24/22 23:09 Nasal Cannula Laboratory Results 01/25/22 01/25/22 01/24/22 Range/Units 05:46 05:46 15:51 WBC 9.84 (4.8-10.8) K/ul RBC 2.88 L (4.63-6.08) M/uL Hgb 9.1 L (14.0-18.0) g/dl Hct 27.9 L (40.1-51.0) % MCV 96.9 (80.0-100.0) fL MCH 31.6 (25.0-34.0) pg MCHC 32.6 (32.0-36.0) g/dL RDW Std Deviation 47.4 H (36.4-46.3) fL RDW Coeff of Pepe 13.2 (11.5-14.5) % Plt Count 222 (130-400) K/uL MPV 10.5 (9.4-12.4) fL Immature Gran % (Auto) 0.5 % Neut % (Auto) 65.3 % Lymph % (Auto) 18.0 % Mcclain % (Auto) 14.6 % Eos % (Auto) 1.3 % Baso % (Auto) 0.3 % Neut # (Auto) 6.42 (1.4-6.5) K/uL Lymph # (Auto) 1.77 (1.2-3.4) K/uL Mcclain # (Auto) 1.44 H (0.24-0.82) K/uL Eos # (Auto) 0.13 (0-0.50) K/uL Baso # (Auto) 0.03 (0-0.2) K/uL Immature Gran # (Auto) 0.05 H (0.00-0.02) K/uL APTT 54.7 H* (21.0-31.0) Seconds PTT Ratio 2.0 Sodium 138 (136-145) mmol/L Potassium 3.7 (3.5-5.1) mmol/L Chloride 104 (98-107) mmol/L Carbon Dioxide 29 (21-32) mmol/L Anion Gap 5 (3-11) BUN 14 (6-23) mg/dl Creatinine 1.03 (0.6-1.4) mg/dl Est Cr Clr Drug Dosing 42.8 ml/min Est GFR ( Amer) 74.8 ml/min Est GFR (Non-Af Amer) 64.6 ml/min BUN/Creatinine Ratio 13.6 (10-20) Glucose 91 (70-99(Fasting)) mg/dl Calcium 9.1 (8.5-10.1) mg/dl Magnesium 1.6 L (1.7-2.4) mg/dl Troponin I High Sens 27.8 H D (0-20) pg/ml 01/24/22 Range/Units 08:44 WBC (4.8-10.8) K/ul RBC (4.63-6.08) M/uL Hgb (14.0-18.0) g/dl Hct (40.1-51.0) % MCV (80.0-100.0) fL MCH (25.0-34.0) pg MCHC (32.0-36.0) g/dL RDW Std Deviation (36.4-46.3) fL RDW Coeff of Pepe (11.5-14.5) % Plt Count (130-400) K/uL MPV (9.4-12.4) fL Immature Gran % (Auto) % Neut % (Auto) % Lymph % (Auto) % Mcclain % (Auto) % Eos % (Auto) % Baso % (Auto) % Neut # (Auto) (1.4-6.5) K/uL Lymph # (Auto) (1.2-3.4) K/uL Mcclain # (Auto) (0.24-0.82) K/uL Eos # (Auto) (0-0.50) K/uL Baso # (Auto) (0-0.2) K/uL Immature Gran # (Auto) (0.00-0.02) K/uL APTT 66.2 H* (21.0-31.0) Seconds PTT Ratio 2.4 Sodium (136-145) mmol/L Potassium (3.5-5.1) mmol/L Chloride (98-107) mmol/L Carbon Dioxide (21-32) mmol/L Anion Gap (3-11) BUN (6-23) mg/dl Creatinine (0.6-1.4) mg/dl Est Cr Clr Drug Dosing ml/min Est GFR ( Amer) ml/min Est GFR (Non-Af Amer) ml/min BUN/Creatinine Ratio (10-20) Glucose (70-99(Fasting)) mg/dl Calcium (8.5-10.1) mg/dl Magnesium (1.7-2.4) mg/dl Troponin I High Sens (0-20) pg/ml PG Care Time/CCT Total # of Minutes Spent Total Time Spent with Patient: Total time spent is greater than 50% in coordination of care (as documented) at patient's floor/unit and/or counseling patient: Coding Level of Care Code 48174 Subseq Hosp Care Lvl 3 Diagnoses Pulmonary embolism I26.99 Respiratory failure with hypoxia J96.91 Metastatic lung cancer (metastasis from lung to other site) C34.90 Acute encephalopathy G93.40 Constipation K59.00 Anemia D64.9 HTN (hypertension) I10 Intraparenchymal hemorrhage of brain I61.9 Seizure R56.9 COPD with emphysema J43.9 Sacral wound S31.000A Acid reflux K21.9 Hypomagnesemia E83.42
[2022-01-25] MEDS: MAGNESIUM SULFATE / D5W 1 GM/100 ML BAG IV SCH ×2 (08:21→11:21)
[2022-01-25] MEDS: ASPIRIN 81 MG ECTAB PO SCH (08:24)
[2022-01-25] MEDS: cloNIDine HCL 0.1 MG TAB PO SCH ×2 (08:24→21:19)
[2022-01-25] MEDS: amLODIPine BESYLATE 5 MG TAB PO SCH ×2 (08:24→21:19)
[2022-01-25] MEDS: DOCUSATE SODIUM 100 MG CAP PO SCH ×2 (08:25→21:20)
[2022-01-25] MEDS: CYANOCOBALAMIN (B-12) 500 MCG TABLET PO SCH (08:25)
[2022-01-25] MEDS: oxyCODONE HCL IR 5 MG TAB (IMMEDIATE RELEASE) PO PRN ×3 (08:26→21:17)
[2022-01-25] MEDS: FLUTICASONE/VILANTEROL 200/25MCG 14 PUFFS/INHALER INH SCH (08:26)
[2022-01-25] MEDS: levETIRAcetam 500 MG TAB PO SCH ×2 (08:26→21:21)
[2022-01-25] MEDS: RIVAROXABAN 15 MG TAB PO SCH ×2 (08:27→21:21)
[2022-01-25] MEDS: PANTOprazole 40 MG TAB PO SCH (08:27)
[2022-01-25] MEDS: MULTIVITAMIN TAB PO SCH (08:27)
[2022-01-25] MEDS: POLYETHYLENE (MIRALAX) 17 GM PACK PO SCH ×3 (08:27→21:23)
[2022-01-25] MEDS: SENNA 8.6 MG TAB PO SCH (08:28)
[2022-01-25] MEDS: UMECLIDINIUM BROMIDE 62.5MCG/BLISTER 7 PUFFS/INHALER INH SCH (08:28)
[2022-01-25 16:29] LABS: Appearance Urine Clear (Clear); Bacteria Urine Automated Negative (Negative); Bilirubin Urine Negative (Negative); Blood Urine Negative (Negative); Cast Urine Automated 0 /lpf (0-5); Color Urine Yellow; Epithelial Cell Urine Auto 0-5 /lpf (0-5); Glucose Urine UA Negative (Negative); Ketones Urine Negative (Negative); Leukocyte Esterase Urine Negative (Negative); Nitrite Urine Negative (Negative); Protein Urine Trace (Negative); RBC Urine Automated 0-4 /hpf (0-4); Specific Gravity Urine 1.013 (1.000-1.030); Urobilinogen Urine Negative (Negative); pH Urine 6.5 (4.5-7.5)
[2022-01-25] MEDS: allopurinoL 100 MG TAB PO SCH (16:39)
[2022-01-25] MEDS: PRAVASTATIN SOD 40 MG TAB PO SCH (21:20)
[2022-01-25] MEDS: TIMOLOL MALEATE 0.5% OP SOLN 5 ML BTL OP SCH (21:23)
[2022-01-25] MEDS: BRIMONIDINE TARTRATE 0.2% 5ML OP SCH (21:31)
[2022-01-26] MEDS: CHECK fentaNYL PATCH PLACEMENT SCH ×4 (00:46→23:43)
[2022-01-26] MEDS: oxyCODONE HCL IR 5 MG TAB (IMMEDIATE RELEASE) PO PRN ×3 (05:45→16:06)
[2022-01-26 06:51] LABS: Hematocrit (blood only) 29.8 % (40.1-51.0); Hemoglobin 9.7 g/dl (14.0-18.0); Mean Corpuscular Hemoglobin 31.8 pg (25.0-34.0); Mean Corpuscular Hgb Conc 32.6 g/dL (32.0-36.0); Mean Corpuscular Volume 97.7 fL (80.0-100.0); Mean Platelet Volume 10.5 fL (9.4-12.4); Platelet Count 254 K/uL (130-400); RDW Coefficient of Variation 13.2 % (11.5-14.5); RDW Standard Deviation 47.6 fL (36.4-46.3); Red Blood Count 3.05 M/uL (4.63-6.08); White Blood Count 12.52 K/ul (4.8-10.8)
[2022-01-26 07:16] LABS: BUN Creatinine Ratio 11.5 (10-20); Calcium 9.2 mg/dl (8.5-10.1); Creatinine Clr Calc Pharmacy 41.8 ml/min; Est GFR (Non-African American) 63.8 ml/min; Magnesium 1.8 mg/dl (1.7-2.4); Potassium 3.9 mmol/L (3.5-5.1)
--- NOTE | 2022-01-26 08:00 | Hospitalist Progress Note ---
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 PE: - Hypoxic in ER requiring 5LNC -> down to 3LNC at this time. - CT Chest on 01/22 showed bilateral segmental and subsegmental PEs with mild right heart strain, as well as atelectasis. - Echo showed elevated RVSP to 30-40mmHg. - Initially started on heparin gtt -> transitioned to Xarelto after risk/benefit conversation with patient and family. - Xarelto 15mg BID x21 days (02/14/22), then 20mg daily thereafter. - Bilateral LE dopplers without evidence of DVT. - Continue to wean oxygen as tolerated. (2) Respiratory failure with hypoxia: Plan: - Baseline O2 requirement prior to admission was 2LNC with exertion. - Now on 3LNC, decreased since admission; continue to wean as tolerated. - Multifactorial secondary to PE, atelectasis from inability to take deep breaths due to pain, and baseline COPD with poor inhaler compliance. - No PNA on imaging. - Goal SpO2 88-92%. 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 - Daily RT with Dr. Ndiaye x32 days. - Chemo to begin next week; hopefully have placement by that time to begin treatment. - Continue fentanyl patch 25mcg q3days. - Tylenol 1000mg q8h scheduled. - Lidocaine patch to affected right rib area daily. - Oxycodone / morphine as needed for breakthrough pain, though he is using them much less often. - PT/OT recommends rehab; CM assisting with placement that will enable him to have his RT and chemo treatments. (4) Acute encephalopathy: Plan: - Improved today compared to yesterday. - Liekly delirium secondary to hospitalization, opiate use. - Had MRI brain last admission which was negative for metastases. - He has no focal neurological deficits indicating stroke and does not need repeat head imaging. - No localizable source of infection. - BP normal. - Delirium precautions. Promote normal sleep/wake cycle; melatonin ordered as needed for sleep. - Can consider medication such as Remeron for sleep, mood, appetite. (5) Constipation: Plan: - Opioid-induced constipation. - BM yesterday and today per patient/daughter. - Continue Dulcolax 10mg WA daily, Colace 100mg PO BID, Miralax TID scheduled, Senna PO daily. (6) Anemia: Plan: - Normocytic anemia. - Hgb stable at 9.7 today, without evidence of bleeding. - Continue daily B12 supplement. (7) HTN (hypertension): Plan: - History of intracranial hemorrhage. - BP at goal at this time. - Continue amlodipine 5mg BID, clonidine 0.2mg PO BID. (8) Intraparenchymal hemorrhage of brain: Plan: - History of left parietal intraparenchymal hemorrhage with possible seizure, boo spected to be secondary to hypertension per previous Neurosurgery records. - Continue Keppra 500mg BID. - Goal BP <160 systolic. (9) Seizure: Plan: - With a history of such around the time of his first intracranial hemorrhage. - Continue home Keppra twice daily. (10) COPD with emphysema: Plan: - History of, noncompliant with inhaler medications. - SpO2 goal of 88-92%. - Continue home Breo and Incruse; continue to educate on importance. (11) Sacral wound: Plan: - Likely due to being more sedentary, also with pressure sores to heels (not infected appearing, [place] pads intact). - Wound care consult appreciated. - Offload pressure. (12) Acid reflux: Plan: - With history of esophageal achalasia (last admit with food impaction requiring EGD w/ Dr Vyas). - Continue pantoprazole. - Was supposed to have manometry as an outpatient, and so will need outpatient GI f/u. (13) Hypomagnesemia: Plan: - Resolved with IV supplementation. - Start MagOxide daily supplement. Plan Code Status: FULL CODE FEN: Heart Healthy DVT ppx: Xarelto Dispo: Telemetry Admission and Anticipated Discharge Date Admission Date: January 22, 2022 Subjective No acute events overnight. Had RT this morning. Feeling overall well, wearing nasal cannula but no complaints of SOB. Walked around room with PT today which he reports went fairly well. No complaints of ADRs from RT. Review of Systems Constitutional: no fever and no chills Respiratory: no cough and no dyspnea on exertion Cardiovascular: no chest pain and no palpitations Gastrointestinal: no abdominal pain, no nausea and no vomiting Physical Exam Constitutional: WD/WN, vitals as above Respiratory: normal respiratory effort with diminished lung sounds bilaterally Cardiovascular: RRR, no murmurs, 1+ pitting edema to bilateral LE up to mid garza Gastrointestinal (Abdomen): normal bowel sounds, soft, nontender, no hepatosplenomegaly Psychiatric: A+Ox3, euthymic affect Results & Data Results & Data ([facility]) Vital Signs (Past 12 Hours) Vital Signs Temp Pulse Pulse Pulse Resp BP BP 01/26/22 07:06 36.9 C 72 17 137/61 01/25/22 23:17 01/26/22 05:07 36.7 C 60 20 130/69 01/26/22 01:17 72 01/25/22 23:15 36.8 C 80 20 136/63 Pulse Ox O2 Del Method O2 Flow Rate 01/26/22 07:06 96 Nasal Cannula 4 01/25/22 23:17 Nasal Cannula 3 01/26/22 05:07 94 01/26/22 01:17 01/25/22 23:15 97 3 PG Care Time/CCT Total # of Minutes Spent Total Time Spent with Patient: Total time spent is greater than 50% in coordination of care (as documented) at patient's floor/unit and/or counseling patient: Coding Level of Care Code 21298 Subseq Hosp Care Lvl 3 Diagnoses Pulmonary embolism I26.94 Pulmonary embolism type: multiple subsegmental (without acute cor pulmonale) Respiratory failure with hypoxia J96.91 Metastatic lung cancer (metastasis from lung to other site) C34.90 Acute encephalopathy G93.40 Constipation K59.00 Anemia D64.9 Anemia type: unspecified type HTN (hypertension) I10 Intraparenchymal hemorrhage of brain I61.9 Seizure R56.9 COPD with emphysema J43.9 Sacral wound S31.000A Acid reflux K21.9 Hypomagnesemia E83.42 (1) Anemia Anemia type: unspecified type Qualified Code(s): D64.9 - Anemia, unspecified (2) Pulmonary embolism Pulmonary embolism type: multiple subsegmental (without acute cor pulmonale) Qualified Code(s): I26.94 - Multiple subsegmental pulmonary emboli without acute cor pulmonale
[2022-01-26] MEDS: MULTIVITAMIN TAB PO SCH (08:45)
[2022-01-26] MEDS: PANTOprazole 40 MG TAB PO SCH (08:45)
[2022-01-26] MEDS: SENNA 8.6 MG TAB PO SCH (08:46)
[2022-01-26] MEDS: RIVAROXABAN 15 MG TAB PO SCH ×2 (08:46→21:06)
[2022-01-26] MEDS: CYANOCOBALAMIN (B-12) 500 MCG TABLET PO SCH (08:46)
[2022-01-26] MEDS: ASPIRIN 81 MG ECTAB PO SCH (08:46)
[2022-01-26] MEDS: amLODIPine BESYLATE 5 MG TAB PO SCH ×2 (08:47→21:07)
[2022-01-26] MEDS: cloNIDine HCL 0.1 MG TAB PO SCH ×2 (08:47→21:06)
[2022-01-26] MEDS: UMECLIDINIUM BROMIDE 62.5MCG/BLISTER 7 PUFFS/INHALER INH SCH (08:48)
[2022-01-26] MEDS: TIMOLOL MALEATE 0.5% OP SOLN 5 ML BTL OP SCH ×2 (08:48→21:07)
[2022-01-26] MEDS: DOCUSATE SODIUM 100 MG CAP PO SCH ×2 (08:48→21:07)
[2022-01-26] MEDS: BRIMONIDINE TARTRATE 0.2% 5ML OP SCH ×3 (08:48→21:17)
[2022-01-26] MEDS: FLUTICASONE/VILANTEROL 200/25MCG 14 PUFFS/INHALER INH SCH (08:49)
[2022-01-26] MEDS: levETIRAcetam 500 MG TAB PO SCH ×2 (08:50→21:06)
[2022-01-26] MEDS: POLYETHYLENE (MIRALAX) 17 GM PACK PO SCH ×3 (10:31→21:07)
[2022-01-26] MEDS: bisacodyL 10 MG SUPP PR SCH (14:03)
[2022-01-26] MEDS: allopurinoL 100 MG TAB PO SCH (16:06)
[2022-01-26] MEDS ORDERED: MELATONIN 3 MG TAB PO PRN (16:06)
[2022-01-26] MEDS: LIDOCAINE 5% 1 PATCH TD SCH (17:45)
[2022-01-26] MEDS: fentaNYL 25 MCG/HR TDSY TD SCH (21:01)
[2022-01-26] MEDS: ACETAMINOPHEN 500 MG TAB PO SCH (21:06)
[2022-01-26] MEDS: PRAVASTATIN SOD 40 MG TAB PO SCH (21:07)
--- NOTE | 2022-01-27 07:16 | Hospitalist Progress Note ---
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 PE: - Hypoxic in ER requiring 5LNC -> down to 3LNC at this time. - CT Chest on 01/22 showed bilateral segmental and subsegmental PEs with mild right heart strain, as well as atelectasis. - Echo showed elevated RVSP to 30-40mmHg. - Initially started on heparin gtt -> transitioned to Xarelto after risk/benefit conversation with patient and family. - Xarelto 15mg BID x21 days (to complete 02/14/22), then 20mg daily thereafter. - Bilateral LE dopplers without evidence of DVT. - Continue to wean oxygen as tolerated. (2) Respiratory failure with hypoxia: Plan: - Baseline O2 requirement prior to admission was 2LNC with exertion. - Now on 3LNC, decreased since admission; continue to wean as tolerated. - Multifactorial secondary to PE, atelectasis from inability to take deep breaths due to pain, and baseline COPD with poor inhaler compliance. - No PNA on imaging. - Goal SpO2 88-92%. 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 - Daily RT with Dr. Ndiaye to complete in 30 days. - Chemo to begin next week; hopefully will have placement by that time to begin treatment. - Continue fentanyl patch 25mcg q3days. - Tylenol 1000mg q8h scheduled. - Lidocaine patch to affected right rib area daily. - Oxycodone / morphine as needed for breakthrough pain, though he is using them much less often with increased dose of fentanyl. - PT/OT recommends rehab; CM assisting with placement that will enable him to have his RT and chemo treatments. (4) Acute encephalopathy: Plan: - Improved since admission. - Likely delirium secondary to hospitalization, opiate use. - Had MRI brain last admission which was negative for metastases. - He has no focal neurological deficits indicating stroke. - No localizable source of infection. - BP normal. - Delirium precautions. Promote normal sleep/wake cycle; melatonin ordered as needed for sleep. - Can consider medication such as Remeron for sleep, mood, appetite. (5) Constipation: Plan: - Opioid-induced constipation. - Last BM yesterday. - Continue Dulcolax 10mg PA daily, Colace 100mg PO BID, Miralax TID scheduled, Senna PO daily. (6) Anemia: Plan: - Normocytic anemia. - Hgb stable, without evidence of bleeding. - Continue daily B12 supplement. (7) HTN (hypertension): Plan: - History of intracranial hemorrhage. - BP at goal at this time. - Continue amlodipine 5mg BID, clonidine 0.2mg PO BID. (8) Intraparenchymal hemorrhage of brain: Plan: - History of left parietal intraparenchymal hemorrhage with possible seizure, suspected to be secondary to hypertension per previous Neurosurgery records. - Continue Keppra 500mg BID. - Goal BP <160 systolic. (9) Seizure: Plan: - With a history of such around the time of his first intracranial hemorrhage. - Continue home Keppra twice daily. (10) COPD with emphysema: Plan: - History of, noncompliant with inhaler medications. - SpO2 goal of 88-92%. - Continue home Breo and Incruse; continue to educate on importance. (11) Sacral wound: Plan: - Likely due to being more sedentary, also with pressure sores to heels (not infected appearing, Abigail pads intact). - Wound care consult appreciated. - Offload pressure. (12) Acid reflux: Plan: - With history of esophageal achalasia (last admit with food impaction requiring EGD w/ Dr Vyas). - Was supposed to have manometry as an outpatient, and so will need outpatient GI f/u. - Continue pantoprazole. (13) Hypomagnesemia: Plan: - Resolved with IV supplementation. - Start MagOxide daily supplement. Plan Code Status: FULL CODE FEN: Heart Healthy DVT ppx: Xarelto Dispo: Telemetry Admission and Anticipated Discharge Date Admission Date: January 22, 2022 Subjective [employer] Office acute events overnight. Patient states that his breathing is feeling good, and that the lidocaine patches are helping some with his pain. He reports no BM yet today, but had one yesterday and the day before. Review of Systems Constitutional: no fever and no chills Respiratory: no cough and no dyspnea on exertion Cardiovascular: no chest pain and no palpitations Gastrointestinal: no abdominal pain, no nausea and no vomiting Physical Exam Constitutional: WD/WN, vitals as above Respiratory: normal respiratory effort with diminished lung sounds bilaterally Cardiovascular: RRR, no murmurs, 1+ pitting edema to bilateral LE up to mid garza Gastrointestinal (Abdomen): normal bowel sounds, soft, nontender, no hepatosplenomegaly Psychiatric: A+Ox3, euthymic affect Results & Data Results & Data ([facility]) Vital Signs (Past 12 Hours) Vital Signs Temp Pulse Pulse Pulse Resp BP Pulse Ox 01/27/22 07:12 36.9 C 79 18 149/69 H 96 01/27/22 02:19 37.1 C 70 16 124/50 L 98 01/26/22 23:00 66 01/26/22 21:10 01/26/22 22:16 36.9 C 65 18 118/66 93 O2 Del Method O2 Flow Rate 01/27/22 07:12 Nasal Cannula 3 01/27/22 02:19 Nasal Cannula 3 01/26/22 23:00 01/26/22 21:10 Nasal Cannula 3 01/26/22 22:16 Nasal Cannula 3 PG Care Time/CCT Total # of Minutes Spent Total Time Spent with Patient: Total time spent is greater than 50% in coordination of care (as documented) at patient's floor/unit and/or counseling patient: Coding Level of Care Code 68866 Subseq Hosp Care Lvl 3 Diagnoses Pulmonary embolism I26.94 Pulmonary embolism type: multiple subsegmental (without acute cor pulmonale) Respiratory failure with hypoxia J96.91 Metastatic lung cancer (metastasis from lung to other site) C34.90 Acute encephalopathy G93.40 Constipation K59.00 Anemia D64.9 Anemia type: unspecified type HTN (hypertension) I10 Intraparenchymal hemorrhage of brain I61.9 Seizure R56.9 COPD with emphysema J43.9 Sacral wound S31.000A Acid reflux K21.9 Hypomagnesemia E83.42 (1) Anemia Anemia type: unspecified type Qualified Code(s): D64.9 - Anemia, unspecified (2) Pulmonary embolism Pulmonary embolism type: multiple subsegmental (without acute cor pulmonale) Qualified Code(s): I26.94 - Multiple subsegmental pulmonary emboli without acute cor pulmonale
[2022-01-27] MEDS: amLODIPine BESYLATE 5 MG TAB PO SCH ×2 (08:02→20:40)
[2022-01-27] MEDS: CHECK fentaNYL PATCH PLACEMENT SCH ×3 (08:02→23:13)
[2022-01-27] MEDS: RIVAROXABAN 15 MG TAB PO SCH ×2 (08:02→20:39)
[2022-01-27] MEDS: ACETAMINOPHEN 500 MG TAB PO SCH ×3 (08:02→20:38)
[2022-01-27] MEDS: levETIRAcetam 500 MG TAB PO SCH ×2 (08:02→20:37)
[2022-01-27] MEDS: cloNIDine HCL 0.1 MG TAB PO SCH ×2 (08:03→20:40)
[2022-01-27] MEDS: MAGNESIUM OXIDE 400 MG TAB PO SCH (08:03)
[2022-01-27] MEDS: BRIMONIDINE TARTRATE 0.2% 5ML OP SCH ×2 (08:03→20:42)
[2022-01-27] MEDS: PANTOprazole 40 MG TAB PO SCH (08:03)
[2022-01-27] MEDS: MULTIVITAMIN TAB PO SCH (08:04)
[2022-01-27] MEDS: ASPIRIN 81 MG ECTAB PO SCH (08:04)
[2022-01-27] MEDS: CYANOCOBALAMIN (B-12) 500 MCG TABLET PO SCH (08:04)
[2022-01-27] MEDS: POLYETHYLENE (MIRALAX) 17 GM PACK PO SCH ×3 (08:04→20:37)
[2022-01-27] MEDS: MoRPHine SULFATE 2 MG/ML CARP IV PRN ×2 (08:15→20:47)
[2022-01-27] MEDS: FLUTICASONE/VILANTEROL 200/25MCG 14 PUFFS/INHALER INH SCH (08:19)
[2022-01-27] MEDS: SENNA 8.6 MG TAB PO SCH (08:19)
[2022-01-27] MEDS: bisacodyL 10 MG SUPP PR SCH (08:19)
[2022-01-27] MEDS: DOCUSATE SODIUM 100 MG CAP PO SCH ×2 (08:19→20:39)
[2022-01-27] MEDS: UMECLIDINIUM BROMIDE 62.5MCG/BLISTER 7 PUFFS/INHALER INH SCH (08:19)
[2022-01-27 08:56] LABS: Creatinine Clr Calc Pharmacy 40.2 ml/min; Est GFR (African American) 74.8 ml/min; Est GFR (Non-African American) 64.6 ml/min
[2022-01-27] MEDS: oxyCODONE HCL IR 5 MG TAB (IMMEDIATE RELEASE) PO PRN (09:58)
[2022-01-27] MEDS: LIDOCAINE 5% 1 PATCH TD SCH (09:59)
[2022-01-27] MEDS: TIMOLOL MALEATE 0.5% OP SOLN 5 ML BTL OP SCH ×2 (09:59→20:42)
[2022-01-27] MEDS: allopurinoL 100 MG TAB PO SCH (16:49)
[2022-01-27] MEDS: PRAVASTATIN SOD 40 MG TAB PO SCH (20:40)
[2022-01-28] MEDS: MoRPHine SULFATE 2 MG/ML CARP IV PRN (06:26)
--- NOTE | 2022-01-28 07:15 | Hospitalist Progress Note ---
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 PE: - Hypoxic in ER requiring 5LNC -> down to 2LNC at this time. - CT Chest on 01/22 showed bilateral segmental and subsegmental PEs with mild right heart strain, as well as atelectasis. - Echo showed elevated RVSP to 30-40mmHg. - Initially started on heparin gtt -> transitioned to Xarelto after risk/benefit conversation with patient and family. - Xarelto 15mg BID x21 days (to complete 02/14/22), then 20mg daily thereafter. - Bilateral LE dopplers without evidence of DVT. - Continue to wean oxygen as tolerated. (2) Respiratory failure with hypoxia: Plan: - Baseline O2 requirement prior to admission was 2LNC with exertion. - Now on 2LNC, decreased since admission; continue to wean as tolerated. - Multifactorial secondary to PE, atelectasis from inability to take deep breaths due to pain, and baseline COPD with poor inhaler compliance. - No PNA on imaging. - Goal SpO2 88-92%. 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 - Daily RT with Dr. Ndiaye to complete in 30 days. - Chemo to begin next week; hopefully will have placement by that time to begin treatment. - Continue fentanyl patch 25mcg q3days. - Tylenol 1000mg q8h scheduled. - Lidocaine patch to affected right rib area daily. - Oxycodone / morphine as needed for breakthrough pain, though he is using them much less often with increased dose of fentanyl (1-2 times daily as compared to 5-6 times daily withotu fentanyl patch). - PT/OT recommends rehab; CM assisting with placement that will enable him to have his RT and chemo treatments. Daughter wants to know if father can have chemo in-house if still admitted; I told her this is unlikely but will communi willi with Oncology. (4) Acute encephalopathy: Plan: - Resolved. - Likely delirium secondary to hospitalization, opiate use. - Had MRI brain last admission which was negative for metastases. - He has no focal neurological deficits indicating stroke. - No localizable source of infection. - BP normal. - Delirium precautions. Promote normal sleep/wake cycle; melatonin ordered as needed for sleep. - Can consider medication such as Remeron for sleep, mood, appetite if needed. (5) Constipation: Plan: - Opioid-induced constipation. Had a BM today. - Continue Dulcolax 10mg [place] daily, Colace 100mg PO BID, Miralax TID scheduled, Senna PO daily. (6) Anemia: Plan: - Normocytic anemia. - Hgb stable, without evidence of bleeding. - Continue daily B12 supplement. (7) HTN (hypertension): Plan: - History of intracranial hemorrhage. - BP at goal at this time. - Continue amlodipine 5mg BID, clonidine 0.2mg PO BID. (8) Intraparenchymal hemorrhage of brain: Plan: - History of left parietal intraparenchymal hemorrhage with possible seizure, suspected to be secondary to hypertension per previous Neurosurgery records. - Continue Keppra 500mg BID. - Goal BP <160 systolic. (9) Seizure: Plan: - With a history of such around the time of his first intracranial hemorrhage. - Continue home Keppra twice daily. (10) COPD with emphysema: Plan: - History of, noncompliant with inhaler medications. - SpO2 goal of 88-92%. - Continue home Breo and Incruse; continue to educate on importance. (11) Acid reflux: Plan: - With history of esophageal achalasia (last admit with food impaction requiring EGD w/ Dr Vyas). - Was supposed to have manometry as an outpatient, and so will need outpatient GI f/u. - Continue pantoprazole. (12) Hypomagnesemia: Plan: - Resolved with IV supplementation. - Start MagOxide daily supplement. Plan Code Status: FULL CODE FEN: Heart Healthy DVT ppx: Xarelto Dispo: Telemetry Admission and Anticipated Discharge Date Admission Date: January 22, 2022 Subjective No acute events overnight. Did report some burning yesterday afternoon after radiation, but feels fairly well now on interview. Still with some right sided pain, states it feels about the same as yesterday. Review of Systems Constitutional: no fever and no chills Respiratory: no cough and no dyspnea on exertion Cardiovascular: no chest pain and no palpitations Gastrointestinal: no abdominal pain, no nausea and no vomiting Physical Exam Constitutional: WD/WN, vitals as above Respiratory: normal respiratory effort with diminished lung sounds bilaterally Cardiovascular: RRR, no murmurs, 1+ pitting edema to bilateral LE up to mid garza Gastrointestinal (Abdomen): normal bowel sounds, soft, nontender, no hepatosplenomegaly Psychiatric: A+Ox3, euthymic affect Results & Data Results & Data ([facility]) Vital Signs (Past 12 Hours) Vital Signs Temp Pulse Pulse Resp BP BP Pulse Ox 01/28/22 06:47 36.8 C 70 18 131/68 94 01/28/22 04:10 36.7 C 69 18 142/60 H 95 01/28/22 00:00 65 01/27/22 21:00 01/27/22 22:13 36.7 C 72 18 146/61 H 97 01/27/22 19:22 36.7 C 65 18 150/63 H 96 O2 Del Method O2 Flow Rate 01/28/22 06:47 Nasal Cannula 3 01/28/22 04:10 Nasal Cannula 3 01/28/22 00:00 01/27/22 21:00 Nasal Cannula 3 01/27/22 22:13 Nasal Cannula 3 01/27/22 19:22 Nasal Cannula 3 PG Care Time/CCT Total # of Minutes Spent Total Time Spent with Patient: Total time spent is greater than 50% in coordination of care (as documented) at patient's floor/unit and/or counseling patient: Coding Level of Care Code 46679 Subseq Hosp Care Lvl 2 Diagnoses Pulmonary embolism I26.94 Pulmonary embolism type: multiple subsegmental (without acute cor pulmonale) Respiratory failure with hypoxia J96.91 Metastatic lung cancer (metastasis from lung to other site) C34.90 Acute encephalopathy G93.40 Constipation K59.00 Anemia D64.9 Anemia type: unspecified type HTN (hypertension) I10 Intraparenchymal hemorrhage of brain I61.9 Seizure R56.9 COPD with emphysema J43.9 Acid reflux K21.9 Hypomagnesemia E83.42 (1) Anemia Anemia type: unspecified type Qualified Code(s): D64.9 - Anemia, unspecified (2) Pulmonary embolism Pulmonary embolism type: multiple subsegmental (without acute cor pulmonale) Qualified Code(s): I26.94 - Multiple subsegmental pulmonary emboli without acute cor pulmonale
[2022-01-28] MEDS: DOCUSATE SODIUM 100 MG CAP PO SCH ×2 (07:42→21:00)
[2022-01-28] MEDS: levETIRAcetam 500 MG TAB PO SCH ×2 (07:42→20:54)
[2022-01-28] MEDS: ACETAMINOPHEN 500 MG TAB PO SCH ×3 (07:42→20:54)
[2022-01-28] MEDS: RIVAROXABAN 15 MG TAB PO SCH ×2 (07:42→20:57)
[2022-01-28] MEDS: cloNIDine HCL 0.1 MG TAB PO SCH ×2 (07:42→20:53)
[2022-01-28] MEDS: CHECK fentaNYL PATCH PLACEMENT SCH ×3 (07:43→23:54)
[2022-01-28] MEDS: amLODIPine BESYLATE 5 MG TAB PO SCH ×2 (07:43→20:54)
[2022-01-28] MEDS: PANTOprazole 40 MG TAB PO SCH (07:44)
[2022-01-28] MEDS: LIDOCAINE 5% 1 PATCH TD SCH (07:44)
[2022-01-28] MEDS: MULTIVITAMIN TAB PO SCH (07:44)
[2022-01-28] MEDS: MAGNESIUM OXIDE 400 MG TAB PO SCH (07:44)
[2022-01-28] MEDS: bisacodyL 10 MG SUPP PR SCH (07:44)
[2022-01-28] MEDS: ASPIRIN 81 MG ECTAB PO SCH (07:44)
[2022-01-28] MEDS: CYANOCOBALAMIN (B-12) 500 MCG TABLET PO SCH (07:44)
[2022-01-28] MEDS: UMECLIDINIUM BROMIDE 62.5MCG/BLISTER 7 PUFFS/INHALER INH SCH ×2 (07:45→08:00)
[2022-01-28] MEDS: FLUTICASONE/VILANTEROL 200/25MCG 14 PUFFS/INHALER INH SCH ×2 (07:45→08:00)
[2022-01-28] MEDS: SENNA 8.6 MG TAB PO SCH (07:45)
[2022-01-28] MEDS: TIMOLOL MALEATE 0.5% OP SOLN 5 ML BTL OP SCH ×2 (07:46→21:00)
[2022-01-28] MEDS: BRIMONIDINE TARTRATE 0.2% 5ML OP SCH ×2 (07:46→21:00)
[2022-01-28] MEDS: POLYETHYLENE (MIRALAX) 17 GM PACK PO SCH ×3 (07:46→21:00)
[2022-01-28] MEDS: oxyCODONE HCL IR 5 MG TAB (IMMEDIATE RELEASE) PO PRN ×3 (07:49→22:11)
[2022-01-28] MEDS: allopurinoL 100 MG TAB PO SCH (15:41)
[2022-01-28] MEDS: PRAVASTATIN SOD 40 MG TAB PO SCH (20:54)
[2022-01-29 06:08] LABS: Hematocrit (blood only) 25.9 % (40.1-51.0); Hemoglobin 8.6 g/dl (14.0-18.0); Mean Corpuscular Hemoglobin 32.2 pg (25.0-34.0); Mean Corpuscular Hgb Conc 33.2 g/dL (32.0-36.0); Mean Platelet Volume 10.3 fL (9.4-12.4); Platelet Count 196 K/uL (130-400); RDW Coefficient of Variation 13.3 % (11.5-14.5); RDW Standard Deviation 47.3 fL (36.4-46.3); Red Blood Count 2.67 M/uL (4.63-6.08); White Blood Count 9.78 K/ul (4.8-10.8)
[2022-01-29] MEDS: oxyCODONE HCL IR 5 MG TAB (IMMEDIATE RELEASE) PO PRN ×3 (06:11→18:35)
[2022-01-29 06:31] LABS: BUN Creatinine Ratio 16.7 (10-20); Calcium 8.7 mg/dl (8.5-10.1); Creatinine Clr Calc Pharmacy 40.8 ml/min; Est GFR (African American) 75.7 ml/min; Est GFR (Non-African American) 65.3 ml/min; Potassium 4.3 mmol/L (3.5-5.1)
[2022-01-29] MEDS: ACETAMINOPHEN 500 MG TAB PO SCH ×3 (07:30→20:05)
[2022-01-29] MEDS: RIVAROXABAN 15 MG TAB PO SCH ×2 (07:30→20:06)
[2022-01-29] MEDS: cloNIDine HCL 0.1 MG TAB PO SCH ×2 (07:30→20:04)
[2022-01-29] MEDS: CYANOCOBALAMIN (B-12) 500 MCG TABLET PO SCH (07:31)
[2022-01-29] MEDS: bisacodyL 10 MG SUPP PR SCH (07:31)
[2022-01-29] MEDS: levETIRAcetam 500 MG TAB PO SCH ×2 (07:31→20:05)
[2022-01-29] MEDS: PANTOprazole 40 MG TAB PO SCH (07:31)
[2022-01-29] MEDS: MULTIVITAMIN TAB PO SCH (07:31)
[2022-01-29] MEDS: LIDOCAINE 5% 1 PATCH TD SCH (07:32)
[2022-01-29] MEDS: DOCUSATE SODIUM 100 MG CAP PO SCH ×2 (07:32→20:05)
[2022-01-29] MEDS: ASPIRIN 81 MG ECTAB PO SCH (07:32)
[2022-01-29] MEDS: UMECLIDINIUM BROMIDE 62.5MCG/BLISTER 7 PUFFS/INHALER INH SCH (07:32)
[2022-01-29] MEDS: FLUTICASONE/VILANTEROL 200/25MCG 14 PUFFS/INHALER INH SCH (07:33)
[2022-01-29] MEDS: BRIMONIDINE TARTRATE 0.2% 5ML OP SCH ×2 (07:33→20:03)
[2022-01-29] MEDS: TIMOLOL MALEATE 0.5% OP SOLN 5 ML BTL OP SCH ×2 (07:34→20:03)
[2022-01-29] MEDS: MAGNESIUM OXIDE 400 MG TAB PO SCH (07:34)
[2022-01-29] MEDS: POLYETHYLENE (MIRALAX) 17 GM PACK PO SCH ×3 (07:34→20:04)
[2022-01-29] MEDS: SENNA 8.6 MG TAB PO SCH (07:34)
[2022-01-29] MEDS: amLODIPine BESYLATE 5 MG TAB PO SCH ×2 (07:35→20:06)
[2022-01-29] MEDS: CHECK fentaNYL PATCH PLACEMENT SCH ×2 (07:45→16:34)
--- NOTE | 2022-01-29 08:33 | Hospitalist Progress Note ---
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 PE: - Hypoxic in ER requiring 5LNC -> down to 2LNC at this time. - CT Chest on 01/22 showed bilateral segmental and subsegmental PEs with mild right heart strain, as well as atelectasis. - Echo showed elevated RVSP to 30-40mmHg. - Initially started on heparin gtt -> transitioned to Xarelto after risk/benefit conversation with patient and family. - Xarelto 15mg BID x21 days (to complete 02/14/22), then 20mg daily thereafter. - Bilateral LE dopplers without evidence of DVT. - Continue to wean oxygen as tolerated. (2) Respiratory failure with hypoxia: Plan: - Baseline O2 requirement prior to admission was 2LNC with exertion. - Now on 12LNC, decreased since admission; continue to wean as tolerated. - Multifactorial secondary to PE, atelectasis from inability to take deep breaths due to pain, and baseline COPD with poor inhaler compliance. - No PNA on imaging. - Incentive spirometry. - Goal SpO2 88-92%. 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 - Daily RT with Dr. Ndiaye to complete in 30 days. - Chemo to begin next week; hopefully will have placement by that time to begin treatment. - Continue fentanyl patch 25mcg q3days. - Tylenol 1000mg q8h scheduled. - Lidocaine patch to affected right rib area daily. - Oxycodone / morphine as needed for breakthrough pain, though he is using them much less often with increased dose of fentanyl (1-2 times daily as compared to 5-6 times daily without fentanyl patch). - PT/OT recommends rehab; CM assisting with placement that will enable him to have his RT and chemo treatments. (4) Acute encephalopathy: Plan: - Resolved. - Delirium secondary to hospitalization, opiate use. - Had MRI brain last admission which was negative for metastases. - No focal neurological deficits indicating stroke. - No localizable source of infection. - BP normal. - Delirium precautions. Promote normal sleep/wake cycle; melatonin ordered as needed for sleep. - Can consider medication such as Remeron for sleep, mood, appetite if needed. (5) Constipation: Plan: - Opioid-induced constipation. Had a BM yesterday. - Continue Dulcolax 10mg PA daily, Colace 100mg PO BID, Miralax TID scheduled, Senna PO daily. (6) Anemia: Plan: - Normocytic anemia. - Hgb stable, without evidence of bleeding. - Continue daily B12 supplement. (7) HTN (hypertension): Plan: - History of intracranial hemorrhage. - BP at goal at this time. - Continue amlodipine 5mg BID, clonidine 0.2mg PO BID. (8) Intraparenchymal hemorrhage of brain: Plan: - History of left parietal intraparenchymal hemorrhage with possible seizure, suspected to be secondary to hypertension per previous Neurosurgery records. - Continue Keppra 500mg BID. - Goal BP <160 systolic. (9) Seizure: Plan: - With a history of such around the time of his first intracranial hemorrhage. - Continue home Keppra twice daily. (10) COPD with emphysema: Plan: - History of, noncompliant with inhaler medications. - SpO2 goal of 88-92%. - Continue home Breo and Incruse; continue to educate on importance. (11) Acid reflux: Plan: - With history of esophageal achalasia (last admit with food impaction requiring EGD w/ Dr Vyas). - Was supposed to have manometry as an outpatient, and so will need outpatient GI f/u. - Continue pantoprazole. (12) Hypomagnesemia: Plan: - Resolved with IV supplementation. - Start MagOxide daily supplement. Plan Code Status: FULL CODE FEN: Heart Healthy DVT ppx: Xarelto Dispo: downgrade to Med/Surg Admission and Anticipated Discharge Date Admission Date: January 22, 2022 Subjective No acute events overnight. Pain well controlled. No complaints of SOB on 1-2LNC Review of Systems Constitutional: no fever and no chills Respiratory: no cough and no dyspnea on exertion Cardiovascular: no chest pain and no palpitations Gastrointestinal: no abdominal pain, no nausea and no vomiting Physical Exam Physical Exam: Constitutional:I WD/WN, vitals as a kingsley Respiratory: normal respiratory effort, lungs CTA bilaterally Cardiovascular:I RRR, no murmurs, 1 + pitting edema to bilateral LE up t o mid garza Psychiatric: A+Ox3, euthymic af fect Results & Data Results & Data ([facility]) Vital Signs (Past 12 Hours) Vital Signs Temp Pulse Pulse Resp BP Pulse Ox O2 Del Method 01/28/22 23:00 61 01/29/22 02:38 36.7 C 62 18 118/60 97 Nasal Cannula 01/28/22 23:00 36.7 C 65 16 94/54 L 96 Nasal Cannula 01/28/22 21:00 Nasal Cannula O2 Flow Rate 01/28/22 23:00 01/29/22 02:38 2 01/28/22 23:00 2 01/28/22 21:00 2 PG Care Time/CCT Total # of Minutes Spent Total Time Spent with Patient: Total time spent is greater than 50% in coordination of care (as documented) at patient's floor/unit and/or counseling patient: Coding Level of Care Code 00940 Subseq Hosp Care Lvl 1 Diagnoses Pulmonary embolism I26.94 Pulmonary embolism type: multiple subsegmental (without acute cor pulmonale) Respiratory failure with hypoxia J96.91 Metastatic lung cancer (metastasis from lung to other site) C34.90 Acute encephalopathy G93.40 Constipation K59.00 Anemia D64.9 Anemia type: unspecified type HTN (hypertension) I10 Intraparenchymal hemorrhage of brain I61.9 Seizure R56.9 COPD with emphysema J43.9 Acid reflux K21.9 Hypomagnesemia E83.42 (1) Anemia Anemia type: unspecified type Qualified Code(s): D64.9 - Anemia, unspecified (2) Pulmonary embolism Pulmonary embolism type: multiple subsegmental (without acute cor pulmonale) Qualified Code(s): I26.94 - Multiple subsegmental pulmonary emboli without acute cor pulmonale
[2022-01-29] MEDS: allopurinoL 100 MG TAB PO SCH (17:14)
[2022-01-29] MEDS: fentaNYL 25 MCG/HR TDSY TD SCH (19:29)
[2022-01-29] MEDS: PRAVASTATIN SOD 40 MG TAB PO SCH (20:04)
[2022-01-30] MEDS: CHECK fentaNYL PATCH PLACEMENT SCH ×4 (00:20→23:44)
[2022-01-30] MEDS: oxyCODONE HCL IR 5 MG TAB (IMMEDIATE RELEASE) PO PRN ×4 (01:36→23:44)
[2022-01-30 06:34] LABS: Creatinine Clr Calc Pharmacy 38.9 ml/min; Est GFR (African American) 71.5 ml/min; Est GFR (Non-African American) 61.7 ml/min
[2022-01-30] MEDS: cloNIDine HCL 0.1 MG TAB PO SCH ×2 (07:41→21:01)
[2022-01-30] MEDS: MULTIVITAMIN TAB PO SCH (07:41)
[2022-01-30] MEDS: ACETAMINOPHEN 500 MG TAB PO SCH ×3 (07:42→21:00)
[2022-01-30] MEDS: amLODIPine BESYLATE 5 MG TAB PO SCH ×2 (07:42→21:03)
[2022-01-30] MEDS: DOCUSATE SODIUM 100 MG CAP PO SCH ×2 (07:42→21:13)
[2022-01-30] MEDS: levETIRAcetam 500 MG TAB PO SCH ×2 (07:42→21:06)
[2022-01-30] MEDS: PANTOprazole 40 MG TAB PO SCH (07:43)
[2022-01-30] MEDS: RIVAROXABAN 15 MG TAB PO SCH ×2 (07:43→21:02)
[2022-01-30] MEDS: ASPIRIN 81 MG ECTAB PO SCH (07:43)
[2022-01-30] MEDS: CYANOCOBALAMIN (B-12) 500 MCG TABLET PO SCH (07:43)
[2022-01-30] MEDS: LIDOCAINE 5% 1 PATCH TD SCH (07:43)
[2022-01-30] MEDS: MAGNESIUM OXIDE 400 MG TAB PO SCH (07:43)
[2022-01-30] MEDS: POLYETHYLENE (MIRALAX) 17 GM PACK PO SCH ×3 (07:44→21:01)
[2022-01-30] MEDS: FLUTICASONE/VILANTEROL 200/25MCG 14 PUFFS/INHALER INH SCH (07:44)
[2022-01-30] MEDS: SENNA 8.6 MG TAB PO SCH (07:45)
[2022-01-30] MEDS: bisacodyL 10 MG SUPP PR SCH (07:45)
[2022-01-30] MEDS: TIMOLOL MALEATE 0.5% OP SOLN 5 ML BTL OP SCH ×2 (07:46→21:04)
[2022-01-30] MEDS: BRIMONIDINE TARTRATE 0.2% 5ML OP SCH ×2 (07:46→21:08)
[2022-01-30] MEDS: UMECLIDINIUM BROMIDE 62.5MCG/BLISTER 7 PUFFS/INHALER INH SCH (07:47)
[2022-01-30] MEDS: MoRPHine SULFATE 2 MG/ML CARP IV PRN (08:54)
--- NOTE | 2022-01-30 15:43 | Hospitalist Progress Note ---
Date of Service January 30, 2022 Assessment & Plan (1) Pulmonary embolism: Plan: Hypoxic in ER requiring 5LNC -> down to 2LNC at this time. - CT Chest on 01/22 showed bilateral segmental and subsegmental PEs with mild right heart strain, as well as atelectasis. - Echo showed elevated RVSP to 30-40mmHg. - Initially started on heparin gtt -> transitioned to Xarelto after risk/benefit conversation with patient and family. - Xarelto 15mg BID x21 days (to complete 02/14/22), then 20mg daily thereafter. - Bilateral LE dopplers without evidence of DVT. - Continue to wean oxygen as tolerated. (2) Respiratory failure with hypoxia: Plan: Baseline O2 requirement prior to admission was 2LNC with exertion. - Multifactorial secondary to PE, atelectasis from inability to take deep breaths due to pain, and baseline COPD with poor inhaler compliance. - No PNA on imaging. - Incentive spirometry. - Goal SpO2 88-92%. 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 - Daily RT with Dr. Ndiaye to complete in 30 days. - Chemo to begin next week; hopefully will have placement by that time to begin treatment. - Continue fentanyl patch 25mcg q3days. - Tylenol 1000mg q8h scheduled. - Lidocaine patch to affected right rib area daily. - Oxycodone / morphine as needed for breakthrough pain, though he is using them much less often with increased dose of fentanyl (1-2 times daily as compared to 5-6 times daily without fentanyl patch). - PT/OT recommends rehab; CM assisting with placement that will enable him to have his RT and chemo treatments. (4) Acute encephalopathy: Plan: - Resolved. - Delirium secondary to hospitalization, opiate use. - Had MRI brain last admission which was negative for metastases. - No focal neurological deficits indicating stroke. - No localizable source of infection. - BP normal. - Delirium precautions. Promote normal sleep/wake cycle; melatonin ordered as needed for sleep. - Can consider medication such as Remeron for sleep, mood, appetite if needed. (5) Constipation: Plan: Opioid-induced constipation. Had 2 BMs on 01/28. - Continue Dulcolax 10mg MT daily, Colace 100mg PO BID, Miralax TID scheduled, Senna PO daily. (6) Anemia: Plan: Normocytic anemia. Hgb stable, without evidence of bleeding. - Continue daily B12 supplement. (7) HTN (hypertension): Plan: History of intracranial hemorrhage. BP at goal at this time. - Continue amlodipine 5mg BID, clonidine 0.2mg PO BID. 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 - Continue Keppra 500mg BID. - Goal BP <160 systolic. (9) Seizure: Plan: With a history of such around the time of his first intracranial hemorrhage. - Continue home Keppra twice daily. (10) COPD with emphysema: Plan: History of, non-compliant with inhaler medications. - SpO2 goal of 88-92%. - Continue home Breo and Incruse; continue to educate on importance. (11) Acid reflux: Plan: With history of esophageal achalasia (last admit with food impaction requiring EGD w/ Dr Vyas). - Was supposed to have manometry as an outpatient, and so will need outpatient GI f/u. - Continue pantoprazole. Plan Code Status: FULL CODE FEN: Heart Healthy DVT ppx: Xarelto Admission and Anticipated Discharge Date Admission Date: January 22, 2022 Subjective Doing well today. Seen in the afternoon after radiation treatment and overall is doing fine. No major complaints. Had pain during radiation therapy and is requesting more pain medication for this. Reports no fevers/chills, chest pain, shortness of breath, abdominal pain, nausea, or vomiting. Physical Exam Constitutional: WD/WN, vitals as above Eyes: EOM intact bilaterally; no conjunctival abnormality ENMT: external ear and nose normal, oropharynx normal Neck: trachea midline, no thyromegaly normal visual inspection Respiratory: normal respiratory effort, lungs clear to auscultation no respiratory distress Cardiovascular: RRR, no murmur, no edema Gastrointestinal (Abdomen): Inspection/Auscultation: abdomen normal to inspection; abdomen not distended Musculoskeletal: no cyanosis or clubbing, extremities motor strength 5/5 Spine and right paraspinal area non-tender to palpation. Skin: no rashes, warm and dry Neurologic: moves all extremities and awake Psychiatric: Orientation: alert, oriented to person and cooperative Results & Data Results & Data ([facility]) Vital Signs (Past 12 Hours) Vital Signs Temp Pulse Resp BP Pulse Ox O2 Del Method O2 Flow Rate 01/30/22 15:25 36.7 C 82 16 160/61 H 98 Nasal Cannula 2 01/30/22 09:48 Nasal Cannula 01/30/22 09:05 Nasal Cannula 2 01/30/22 07:21 36.8 C 76 16 153/66 H 97 Nasal Cannula 2 FiO2 01/30/22 15:25 01/30/22 09:48 2 01/30/22 09:05 01/30/22 07:21 PG Care Time/CCT Total # of Minutes Spent Total Time Spent with Patient: Total time spent is greater than 50% in coordination of care (as documented) at patient's floor/unit and/or counseling patient: Coding Level of Care Code 71535 Subseq Hosp Care Lvl 3 Diagnoses Pulmonary embolism I26.94 Pulmonary embolism type: multiple subsegmental (without acute cor pulmonale) Respiratory failure with hypoxia J96.91 Metastatic lung cancer (metastasis from lung to other site) C34.90 Acute encephalopathy G93.40 Constipation K59.00 Anemia D64.9 Anemia type: unspecified type HTN (hypertension) I10 Intraparenchymal hemorrhage of brain I61.9 Seizure R56.9 COPD with emphysema J43.9 Acid reflux K21.9 (1) Pulmonary embolism Pulmonary embolism type: multiple subsegmental (without acute cor pulmonale) Qualified Code(s): I26.94 - Multiple subsegmental pulmonary emboli without acute cor pulmonale (2) Anemia Anemia type: unspecified type Qualified Code(s): D64.9 - Anemia, unspecified
[2022-01-30] MEDS: allopurinoL 100 MG TAB PO SCH (16:14)
[2022-01-30] MEDS: PRAVASTATIN SOD 40 MG TAB PO SCH (21:06)
[2022-01-31 07:21] LABS: Hematocrit (blood only) 28.8 % (40.1-51.0); Hemoglobin 9.5 g/dl (14.0-18.0); Mean Platelet Volume 10.4 fL (9.4-12.4); Platelet Count 234 K/uL (130-400); RDW Coefficient of Variation 12.9 % (11.5-14.5); RDW Standard Deviation 45.8 fL (36.4-46.3); Red Blood Count 2.97 M/uL (4.63-6.08); White Blood Count 10.12 K/ul (4.8-10.8)
[2022-01-31] MEDS: MULTIVITAMIN TAB PO SCH (07:35)
[2022-01-31] MEDS: CYANOCOBALAMIN (B-12) 500 MCG TABLET PO SCH (07:35)
[2022-01-31] MEDS: SENNA 8.6 MG TAB PO SCH (07:35)
[2022-01-31] MEDS: CHECK fentaNYL PATCH PLACEMENT SCH ×2 (07:35→16:10)
[2022-01-31] MEDS: levETIRAcetam 500 MG TAB PO SCH ×2 (07:35→20:30)
[2022-01-31] MEDS: amLODIPine BESYLATE 5 MG TAB PO SCH ×2 (07:36→20:31)
[2022-01-31] MEDS: PANTOprazole 40 MG TAB PO SCH (07:36)
[2022-01-31] MEDS: ASPIRIN 81 MG ECTAB PO SCH (07:36)
[2022-01-31] MEDS: RIVAROXABAN 15 MG TAB PO SCH ×2 (07:36→20:30)
[2022-01-31] MEDS: cloNIDine HCL 0.1 MG TAB PO SCH ×2 (07:36→20:31)
[2022-01-31] MEDS: MAGNESIUM OXIDE 400 MG TAB PO SCH (07:36)
[2022-01-31] MEDS: DOCUSATE SODIUM 100 MG CAP PO SCH ×2 (07:37→20:37)
[2022-01-31] MEDS: UMECLIDINIUM BROMIDE 62.5MCG/BLISTER 7 PUFFS/INHALER INH SCH (07:37)
[2022-01-31] MEDS: FLUTICASONE/VILANTEROL 200/25MCG 14 PUFFS/INHALER INH SCH (07:37)
[2022-01-31] MEDS: POLYETHYLENE (MIRALAX) 17 GM PACK PO SCH ×3 (07:38→20:34)
[2022-01-31] MEDS: LIDOCAINE 5% 1 PATCH TD SCH (07:38)
[2022-01-31] MEDS: BRIMONIDINE TARTRATE 0.2% 5ML OP SCH ×2 (07:38→20:33)
[2022-01-31] MEDS: bisacodyL 10 MG SUPP PR SCH (07:38)
[2022-01-31] MEDS: TIMOLOL MALEATE 0.5% OP SOLN 5 ML BTL OP SCH ×2 (07:39→20:33)
[2022-01-31] MEDS: ACETAMINOPHEN 500 MG TAB PO SCH ×3 (07:45→20:37)
[2022-01-31] MEDS ORDERED: MoRPHine SULFATE 2 MG/ML CARP IV SCH (07:45)
[2022-01-31 07:59] LABS: BUN Creatinine Ratio 14.5 (10-20); Calcium 8.9 mg/dl (8.5-10.1); Creatinine Clr Calc Pharmacy 33.5 ml/min; Est GFR (African American) 59.8 ml/min; Est GFR (Non-African American) 51.6 ml/min; Magnesium 1.9 mg/dl (1.7-2.4)
[2022-01-31] MEDS: oxyCODONE HCL IR 5 MG TAB (IMMEDIATE RELEASE) PO PRN ×2 (10:14→19:49)
--- NOTE | 2022-01-31 14:51 | Hospitalist Progress Note ---
Date of Service January 31, 2022 Assessment & Plan (1) Pulmonary embolism: Plan: Hypoxic in ER requiring 5LNC -> down to 2LNC at this time. - CT Chest on 01/22 showed bilateral segmental and subsegmental PEs with mild right heart strain, as well as atelectasis. - Echo showed elevated RVSP to 30-40mmHg. - Initially started on heparin gtt -> transitioned to Xarelto after risk/benefit conversation with patient and family. - Xarelto 15mg BID x21 days (to complete 02/14/22), then 20mg daily thereafter. - Bilateral LE dopplers without evidence of DVT. - Continue to wean oxygen as tolerated. -> Doing well. No major issues at this point. (2) Respiratory failure with hypoxia: Plan: Baseline O2 requirement prior to admission was 2LNC with exertion. - Multifactorial secondary to PE, atelectasis from inability to take deep breaths due to pain, and baseline COPD with poor inhaler compliance. - No PNA on imaging. - Incentive spirometry. - Goal SpO2 88-92%. 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 - Daily RT with Dr. Ndiaye to complete in 30 days. - Chemo to begin next week; hopefully will have placement by that time to begin treatment. - Continue fentanyl patch 25mcg q3days. - Tylenol 1000mg q8h scheduled. - Lidocaine patch to affected right rib area daily. - Oxycodone as needed for breakthrough pain, though he is using them much less often with increased dose of fentanyl (1-2 times daily as compared to 5-6 times daily without fentanyl patch). -> On 01/30, adjusted to morphine prior to radiation treatments as he reported that being the most painful part of his day. - PT/OT recommends rehab; CM assisting with placement that will enable him to have his RT and chemo treatments. Nothing yet. (4) Acute encephalopathy: Plan: - Resolved. - Delirium secondary to hospitalization, opiate use. - Had MRI brain last admission which was negative for metastases. - No focal neurological deficits indicating stroke. - No localizable source of infection. - BP normal. - Delirium precautions. Promote normal sleep/wake cycle; melatonin ordered as needed for sleep. - Can consider medication such as Remeron for sleep, mood, appetite if needed. (5) Constipation: Plan: Opioid-induced constipation. Had 2 BMs on 01/28. - Continue Dulcolax 10mg NC daily, Colace 100mg PO BID, Miralax TID scheduled, Senna PO daily. (6) Anemia: Plan: Normocytic anemia. Hgb stable, without evidence of bleeding. - Continue daily B12 supplement. (7) HTN (hypertension): Plan: History of intracranial hemorrhage. BP at goal at this time. - Continue amlodipine 5mg BID, clonidine 0.2mg PO BID. 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 - Continue Keppra 500mg BID. - Goal BP <160 systolic. (9) Seizure: Plan: With a history of such around the time of his first intracranial hemorrhage. - Continue home Keppra twice daily. (10) COPD with emphysema: Plan: History of, non-compliant with inhaler medications. - SpO2 goal of 88-92%. - Continue home Breo and Incruse; continue to educate on importance. (11) Acid reflux: Plan: With history of esophageal achalasia (last admit with food impaction requiring EGD w/ Dr Vyas). - Was supposed to have manometry as an outpatient, and so will need outpatient GI f/u. - Continue pantoprazole. Plan Code Status: FULL CODE FEN: Heart Healthy DVT ppx: Xarelto Admission and Anticipated Discharge Date Admission Date: January 22, 2022 Subjective No major change today. Went for radiation therapy this morning. Sleeping comfortably after. Reports no fevers/chills, chest pain, shortness of breath, abdominal pain, nausea, or vomiting. Physical Exam Constitutional: WD/WN, vitals as above Eyes: EOM intact bilaterally; no conjunctival abnormality ENMT: external ear and nose normal, oropharynx normal Neck: trachea midline, no thyromegaly normal visual inspection Respiratory: normal respiratory effort, lungs clear to auscultation no respiratory distress Cardiovascular: RRR, no murmur, no edema Gastrointestinal (Abdomen): Inspection/Auscultation: abdomen normal to inspection; abdomen not distended Musculoskeletal: no cyanosis or clubbing, extremities motor strength 5/5 Skin: no rashes, warm and dry Neurologic: moves all extremities and awake Psychiatric: Orientation: alert, oriented to person and cooperative Results & Data Results & Data ([facility]) Vital Signs (Past 12 Hours) Vital Signs Temp Pulse Resp BP Pulse Ox O2 Del Method O2 Flow Rate 01/31/22 07:50 37.0 C 85 18 167/74 H 97 Nasal Cannula 2 01/31/22 08:44 Nasal Cannula 2 PG Care Time/CCT Total # of Minutes Spent Total Time Spent with Patient: Total time spent is greater than 50% in coordination of care (as documented) at patient's floor/unit and/or counseling patient: Coding Level of Care Code 77521 Subseq Hosp Care Lvl 2 Diagnoses Pulmonary embolism I26.94 Pulmonary embolism type: multiple subsegmental (without acute cor pulmonale) Respiratory failure with hypoxia J96.91 Metastatic lung cancer (metastasis from lung to other site) C34.90 Acute encephalopathy G93.40 Constipation K59.00 Anemia D64.9 Anemia type: unspecified type HTN (hypertension) I10 Intraparenchymal hemorrhage of brain I61.9 Seizure R56.9 COPD with emphysema J43.9 Acid reflux K21.9 (1) Pulmonary embolism Pulmonary embolism type: multiple subsegmental (without acute cor pulmonale) Qualified Code(s): I26.94 - Multiple subsegmental pulmonary emboli without acute cor pulmonale (2) Anemia Anemia type: unspecified type Qualified Code(s): D64.9 - Anemia, unspecified
[2022-01-31] MEDS: allopurinoL 100 MG TAB PO SCH (16:09)
[2022-01-31] MEDS: PRAVASTATIN SOD 40 MG TAB PO SCH (20:30)
[2022-02-01] MEDS: CHECK fentaNYL PATCH PLACEMENT SCH ×4 (00:58→23:49)
[2022-02-01] MEDS: LIDOCAINE 5% 1 PATCH TD SCH (08:26)
[2022-02-01] MEDS: MAGNESIUM OXIDE 400 MG TAB PO SCH (08:27)
[2022-02-01] MEDS: levETIRAcetam 500 MG TAB PO SCH ×2 (08:27→21:42)
[2022-02-01] MEDS: MULTIVITAMIN TAB PO SCH (08:27)
[2022-02-01] MEDS: SENNA 8.6 MG TAB PO SCH (08:27)
[2022-02-01] MEDS: cloNIDine HCL 0.1 MG TAB PO SCH ×2 (08:27→21:42)
[2022-02-01] MEDS: amLODIPine BESYLATE 5 MG TAB PO SCH ×2 (08:27→21:41)
[2022-02-01] MEDS: ASPIRIN 81 MG ECTAB PO SCH (08:27)
[2022-02-01] MEDS: CYANOCOBALAMIN (B-12) 500 MCG TABLET PO SCH (08:28)
[2022-02-01] MEDS: RIVAROXABAN 15 MG TAB PO SCH ×2 (08:28→21:43)
[2022-02-01] MEDS: PANTOprazole 40 MG TAB PO SCH (08:28)
[2022-02-01] MEDS: bisacodyL 10 MG SUPP PR SCH (08:29)
[2022-02-01] MEDS: TIMOLOL MALEATE 0.5% OP SOLN 5 ML BTL OP SCH ×2 (08:29→21:44)
[2022-02-01] MEDS: BRIMONIDINE TARTRATE 0.2% 5ML OP SCH ×2 (08:29→21:44)
[2022-02-01] MEDS: POLYETHYLENE (MIRALAX) 17 GM PACK PO SCH ×3 (08:30→21:39)
[2022-02-01] MEDS: ACETAMINOPHEN 500 MG TAB PO SCH ×3 (08:32→21:39)
[2022-02-01] MEDS: FLUTICASONE/VILANTEROL 200/25MCG 14 PUFFS/INHALER INH SCH (08:33)
[2022-02-01] MEDS: UMECLIDINIUM BROMIDE 62.5MCG/BLISTER 7 PUFFS/INHALER INH SCH (08:33)
[2022-02-01] MEDS: DOCUSATE SODIUM 100 MG CAP PO SCH ×2 (08:33→21:43)
[2022-02-01] MEDS: MoRPHine SULFATE 2 MG/ML CARP IV SCH (08:34)
[2022-02-01] MEDS: allopurinoL 100 MG TAB PO SCH (16:24)
--- NOTE | 2022-02-01 16:36 | Progress Notes ---
ONCOLOGY PROGRESS NOTE SUBJECTIVE: Complains of right sided rib pain. PHYSICAL EXAMINATION: Unremarkable. LABORATORY DATA: On 01/31/2022, CBC revealed white count of 10.12, hemoglobin 9.5, hematocrit 28.8, MCV of 97, platelet count 234. Chemistry essentially unremarkable. ASSESSMENT AND PLAN: 1. At least stage IIB squamous cell carcinoma of the right lung. 2. Segmental/subsegmental pulmonary embolism due to malignancy. Pleasant gentleman with at least stage IIB squamous cell carcinoma of the right lung, currently on inpatient admission after presenting to the ED on 01/22/2022 with shortness of breath and back pain and was found to have segmental/subsegmental pulmonary embolism. Since then, patient has remained in the hospital due to placement issues as he will need to be discharged to rehab. He started radiation treatment last week. Since the patient remains hospitalized and has already started radiation treatment, recommended starting weekly carboplatin/paclitaxel while inpatient. He will receive paclitaxel 40 mg/m2 IV and carboplatin with AUC of 2 today and continue weekly while receiving radiation treatment. Order for chemotherapy and premedications signed. He will receive IV carboplatin and paclitaxel today. Recommend checking CBC with differential, CMP, and magnesium daily. We will hopefully be able to start outpatient chemotherapy next week after he is discharged to rehabilitation facility. Oncology will continue following the patient while in the hospital. Please feel free to call if you have any other questions. Job ID: [id number] A.[facility]. FOX MEMORIAL HOSPITALKatharine
[2022-02-01] MEDS ORDERED: DEXAMETHASONE IV ONE (17:30)
[2022-02-01] MEDS ORDERED: FOSAPREPITANT DIMEGLUMINE 150 MG in SODIUM CHLORIDE 0.9% 145 ML IV ONE (17:30)
[2022-02-01] MEDS ORDERED: SODIUM CHLORIDE 0.9% IV ONE ×2 (17:30→19:00)
[2022-02-01] MEDS ORDERED: PALONOSETRON IV ONE (17:30)
[2022-02-01] MEDS ORDERED: FAMOTIDINE 20 MG in SYRINGE 3 ML IV ONE (17:30)
[2022-02-01] MEDS ORDERED: CETIRIZINE HCL 10 MG TABLET PO ONE (17:30)
[2022-02-01] MEDS ORDERED: 0.2 MICRON FILTER SET 1 EACH IV ONE (18:00)
[2022-02-01] MEDS ORDERED: SODIUM CHL 0.9% IV ONE (18:00)
[2022-02-01] MEDS ORDERED: POLYOLEFIN IV ONE (18:00)
[2022-02-01] MEDS ORDERED: PACLITAXEL IV ONE (18:00)
[2022-02-01] MEDS: oxyCODONE HCL IR 5 MG TAB (IMMEDIATE RELEASE) PO PRN (18:34)
[2022-02-01] MEDS ORDERED: CARBOPLATIN IV ONE ×2 (19:00)
[2022-02-01] MEDS ORDERED: DEXTROSE 5% IV ONE (19:00)
--- NOTE | 2022-02-01 19:06 | Hospitalist Progress Note ---
Date of Service February 01, 2022 Assessment & Plan (1) Pulmonary embolism: Plan: Hypoxic in ER requiring 5LNC -> down to room air at this time. - CT Chest on 01/22 showed bilateral segmental and subsegmental PEs with mild right heart strain, as well as atelectasis. - Echo showed elevated RVSP to 30-40mmHg. - Initially started on heparin gtt -> transitioned to Xarelto after risk/benefit conversation with patient and family. - Xarelto 15mg BID x 21 days (to complete 02/14/22), then 20mg daily thereafter. - Bilateral LE Dopplers without evidence of DVT. - Continue to wean oxygen as tolerated. -> Doing well. No major issues at this point. 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 - Daily RT with Dr. Ndiaye to complete in 30 days. - Chemo to begin next week; hopefully will have placement by that time to begin treatment. - Continue fentanyl patch 25mcg q3days. - Tylenol 1000mg q8h scheduled. - Lidocaine patch to affected right rib area daily. - Oxycodone as needed for breakthrough pain, though he is using them much less often with increased dose of fentanyl (1-2 times daily as compared to 5-6 times daily without fentanyl patch). -> On 01/30, adjusted to morphine prior to radiation treatments as he reported that being the most painful part of his day. - PT/OT recommends rehab; CM assisting with placement that will enable him to have his RT and chemo treatments. Nothing yet. -> Started chemo on 02/[address] Alcantar because it is a fairly aggressive cancer. (3) Respiratory failure with hypoxia: Plan: Baseline O2 requirement prior to admission was 2LNC with exertion. - Multifactorial secondary to PE, atelectasis from inability to take deep breaths due to pain, and baseline COPD with poor inhaler compliance. - No PNA on imaging. - Incentive spirometry. - Goal SpO2 88-92%. (4) Acute encephalopathy: Plan: - Resolved. - Delirium secondary to hospitalization, opiate use. - Had MRI brain last admission which was negative for metastases. - No focal neurological deficits indicating stroke. - No localizable source of infection. - BP normal. - Delirium precautions. Promote normal sleep/wake cycle; melatonin ordered as ne eded for sleep. - Can consider medication such as Remeron for sleep, mood, appetite if needed. (5) Constipation: Plan: Opioid-induced constipation. Had 2 BMs on 01/28. - Continue Dulcolax 10mg [place] daily, Colace 100mg PO BID, Miralax TID scheduled, Senna PO daily. (6) Anemia: Plan: Normocytic anemia. Hgb stable, without evidence of bleeding. - Continue daily B12 supplement. (7) HTN (hypertension): Plan: History of intracranial hemorrhage. BP at goal at this time. - Continue amlodipine 5mg BID, clonidine 0.2mg PO BID. 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 - Continue Keppra 500mg BID. - Goal BP <160 systolic. (9) Seizure: Plan: With a history of such around the time of his first intracranial hemorrhage. - Continue home Keppra twice daily. (10) COPD with emphysema: Plan: History of, non-compliant with inhaler medications. - SpO2 goal of 88-92%. - Continue home Breo and Incruse; continue to educate on importance. (11) Acid reflux: Plan: With history of esophageal achalasia (last admit with food impaction requiring EGD w/ Dr Vyas). - Was supposed to have manometry as an outpatient, and so will need outpatient GI f/u. - Continue pantoprazole. Plan Code Status: FULL CODE FEN: Heart Healthy DVT ppx: Xarelto Admission and Anticipated Discharge Date Admission Date: January 22, 2022 Subjective Doing well today. [place] pretty well this morning. Still reports some pain with radiation treatment. Physical Exam Constitutional: WD/WN, vitals as above Eyes: EOM intact bilaterally; no conjunctival abnormality ENMT: external ear and nose normal, oropharynx normal Neck: trachea midline, no thyromegaly normal visual inspection Respiratory: normal respiratory effort, lungs clear to auscultation no respiratory distress Cardiovascular: RRR, no murmur, no edema Gastrointestinal (Abdomen): Inspection/Auscultation: abdomen normal to inspection; abdomen not distended Musculoskeletal: no cyanosis or clubbing, extremities motor strength 5/5 Skin: no rashes, warm and dry Neurologic: moves all extremities and awake Psychiatric: Orientation: alert, oriented to person and cooperative Results & Data Results & Data ([facility]) Vital Signs (Past 12 Hours) Vital Signs Temp Pulse Resp BP Pulse Ox O2 Del Method O2 Flow Rate 02/01/22 14:41 36.4 C L 68 16 116/56 L 94 Room Air 02/01/22 08:35 Nasal Cannula 2 02/01/22 07:18 37.4 C 80 16 156/68 H 98 Nasal Cannula 2 PG Care Time/CCT Total # of Minutes Spent Total Time Spent with Patient: Total time spent is greater than 50% in coordination of care (as documented) at patient's floor/unit and/or counseling patient: Coding Level of Care Code 93318 Subseq Hosp Care Lvl 2 Diagnoses Pulmonary embolism I26.94 Pulmonary embolism type: multiple subsegmental (without acute cor pulmonale) Metastatic lung cancer (metastasis from lung to other site) C34.90 Respiratory failure with hypoxia J96.91 Acute encephalopathy G93.40 Constipation K59.00 Anemia D64.9 Anemia type: unspecified type HTN (hypertension) I10 Intraparenchymal hemorrhage of brain I61.9 Seizure R56.9 COPD with emphysema J43.9 Acid reflux K21.9 (1) Pulmonary embolism Pulmonary embolism type: multiple subsegmental (without acute cor pulmonale) Qualified Code(s): I26.94 - Multiple subsegmental pulmonary emboli without acute cor pulmonale (2) Anemia Anemia type: unspecified type Qualified Code(s): D64.9 - Anemia, unspecified
[2022-02-01] MEDS: PRAVASTATIN SOD 40 MG TAB PO SCH (21:41)
[2022-02-01] MEDS: fentaNYL 25 MCG/HR TDSY TD SCH (21:53)
[2022-02-02 06:45] LABS: Hematocrit (blood only) 29.7 % (40.1-51.0); Mean Corpuscular Hemoglobin 32.4 pg (25.0-34.0); Mean Corpuscular Hgb Conc 33.7 g/dL (32.0-36.0); Mean Corpuscular Volume 96.1 fL (80.0-100.0); Mean Platelet Volume 10.6 fL (9.4-12.4); Platelet Count 347 K/uL (130-400); RDW Standard Deviation 45.5 fL (36.4-46.3); Red Blood Count 3.09 M/uL (4.63-6.08); White Blood Count 7.01 K/ul (4.8-10.8)
[2022-02-02 07:04] LABS: BUN Creatinine Ratio 16.4 (10-20); Calcium 8.7 mg/dl (8.5-10.1); Creatinine Clr Calc Pharmacy 32.5 ml/min; Est GFR (African American) 57.5 ml/min; Est GFR (Non-African American) 49.6 ml/min; Potassium 4.3 mmol/L (3.5-5.1)
[2022-02-02] MEDS: MoRPHine SULFATE 2 MG/ML CARP IV SCH (08:29)
[2022-02-02] MEDS: CHECK fentaNYL PATCH PLACEMENT SCH ×2 (08:30→16:30)
[2022-02-02] MEDS: FLUTICASONE/VILANTEROL 200/25MCG 14 PUFFS/INHALER INH SCH ×2 (09:52→09:56)
[2022-02-02] MEDS: BRIMONIDINE TARTRATE 0.2% 5ML OP SCH ×2 (09:53→20:17)
[2022-02-02] MEDS: TIMOLOL MALEATE 0.5% OP SOLN 5 ML BTL OP SCH ×2 (09:53→20:17)
[2022-02-02] MEDS: UMECLIDINIUM BROMIDE 62.5MCG/BLISTER 7 PUFFS/INHALER INH SCH ×2 (09:53→09:56)
[2022-02-02] MEDS: DOCUSATE SODIUM 100 MG CAP PO SCH ×2 (09:54→20:20)
[2022-02-02] MEDS: POLYETHYLENE (MIRALAX) 17 GM PACK PO SCH ×3 (09:54→20:20)
[2022-02-02] MEDS: bisacodyL 10 MG SUPP PR SCH (09:54)
[2022-02-02] MEDS: SENNA 8.6 MG TAB PO SCH (09:54)
[2022-02-02] MEDS: ASPIRIN 81 MG ECTAB PO SCH (09:56)
[2022-02-02] MEDS: RIVAROXABAN 15 MG TAB PO SCH ×2 (09:56→20:19)
[2022-02-02] MEDS: levETIRAcetam 500 MG TAB PO SCH ×2 (09:56→20:19)
[2022-02-02] MEDS: PANTOprazole 40 MG TAB PO SCH (09:57)
[2022-02-02] MEDS: LIDOCAINE 5% 1 PATCH TD SCH (09:57)
[2022-02-02] MEDS: amLODIPine BESYLATE 5 MG TAB PO SCH ×2 (09:57→20:18)
[2022-02-02] MEDS: MULTIVITAMIN TAB PO SCH (09:57)
[2022-02-02] MEDS: CYANOCOBALAMIN (B-12) 500 MCG TABLET PO SCH (09:57)
[2022-02-02] MEDS: MAGNESIUM OXIDE 400 MG TAB PO SCH (09:57)
[2022-02-02] MEDS: cloNIDine HCL 0.1 MG TAB PO SCH ×2 (09:57→20:19)
[2022-02-02] MEDS: ACETAMINOPHEN 500 MG TAB PO SCH ×3 (10:07→20:14)
[2022-02-02] MEDS: allopurinoL 100 MG TAB PO SCH (16:31)
--- NOTE | 2022-02-02 17:03 | Hospitalist Progress Note ---
Date of Service February 02, 2022 Assessment & Plan (1) Pulmonary embolism: Plan: Hypoxic in ER requiring 5LNC -> down to room air at this time. - CT Chest on 01/22 showed bilateral segmental and subsegmental PEs with mild right heart strain, as well as atelectasis. - Echo showed elevated RVSP to 30-40mmHg. - Initially started on heparin gtt -> transitioned to Xarelto after risk/benefit conversation with patient and family. - Xarelto 15mg BID x 21 days (to complete 02/14/22), then 20mg daily thereafter. - Bilateral LE Dopplers without evidence of DVT. - Continue to wean oxygen as tolerated. -> Doing well. No major issues at this point. 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 - Daily RT with Dr. Ndiaye to complete in 30 days. - Has been started on Chemo on 02/01 and also will continue radiation therapy - Continue fentanyl patch 25mcg q3days. - Tylenol 1000mg q8h scheduled. - Lidocaine patch to affected right rib area daily. - Oxycodone as needed for breakthrough pain, though he is using them much less often with increased dose of fentanyl (1-2 times daily as compared to 5-6 times daily without fentanyl patch). - PT/OT recommends rehab; CM assisting with placement that will enable him to have his RT and chemo treatments. (3) Respiratory failure with hypoxia: Plan: Baseline O2 requirement prior to admission was 2LNC with exertion. - Multifactorial secondary to PE, atelectasis from inability to take deep breaths due to pain, and baseline COPD with poor inhaler compliance. - No PNA on imaging. - Incentive spirometry. - Goal SpO2 88-92%. (4) Acute encephalopathy: Plan: - Resolved. - Delirium secondary to hospitalization, opiate use. - Had MRI brain last admission which was negative for metastases. - No focal neurological deficits indicating stroke. - No localizable source of infection. - BP normal. - Delirium precautions. Promote normal sleep/wake cycle; melatonin ordered as needed for sleep. - Can consider medication such as Remeron for sleep, mood, appetite if needed. (5) Constipation: Plan: Opioid-induced constipation. Had 2 BMs on 01/28. - Continue Dulcolax 10mg DC daily, Colace 100mg PO BID, Miralax TID scheduled, Senna PO daily. (6) Anemia: Plan: Normocytic anemia. Hgb stable, without evidence of bleeding. - Continue daily B12 supplement. (7) HTN (hypertension): Plan: History of intracranial hemorrhage. BP at goal at this time. - Continue amlodipine 5mg BID, clonidine 0.2mg PO BID. 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 - Continue Keppra 500mg BID. - Goal BP <160 systolic. (9) Seizure: Plan: With a history of such around the time of his first intracranial hemorrhage. - Continue home Keppra twice daily. (10) COPD with emphysema: Plan: History of, non-compliant with inhaler medications. - SpO2 goal of 88-92%. - Continue home Breo and Incruse; continue to educate on importance. (11) Acid reflux: Plan: With history of esophageal achalasia (last admit with food impaction requiring EGD w/ Dr Vyas). - Was supposed to have manometry as an outpatient, and so will need outpatient GI f/u. - Continue pantoprazole. Plan Code Status: FULL CODE FEN: Heart Healthy DVT ppx: Xarelto Admission and Anticipated Discharge Date Admission Date: January 22, 2022 Subjective patient seen and examined, feels overall better, although with some right sided pain Review of Systems Review of Systems: All systems reviewed are negative, apart from the ones contained in the history. Physical Exam Physical Exam: The patient is awake, alert and oriented 3, well developed and well nourished, normocephalic and atraumatic, lying in bed and in no acute distress. HEENT--PERRL, EOMI, mucous membranes and oropharynx mildly dry Neck--supple. No JVD. No bruits. Thyroid normal, trachea midline, no a denopathy. Heart--normal S1 and S2. No murmurs, rubs or gallops. Lungs--clear bilaterally, no respiratory distress, no accessory muscle use. Abdomen--normal bowel sounds and soft. Mild epigastric and left sided abdominal pain Extremities--no cyanosis or clubbing. No edema. Dermatologic--normal skin turgor, normal color, no abnormal lymph nodes, no rash. Neurologic--cranial nerves II through XII grossly intact. Rheumatologic--normal range of motion. Psychiatric--normal affect. Results & Data Results & Data ([facility]) Vital Signs (Past 12 Hours) Vital Signs Temp Pulse Resp BP BP Pulse Ox O2 Del Method 02/02/22 15:11 97.3 F L 67 16 113/57 L 93 Room Air 02/02/22 08:30 Room Air 02/02/22 07:06 97.7 F 65 16 116/61 90 Room Air PG Care Time/CCT Total # of Minutes Spent Total Time Spent with Patient: Total time spent is greater than 50% in coordination of care (as documented) at patient's floor/unit and/or counseling patient: Coding Level of Care Code 72254 Subseq Hosp Care Lvl 2 Diagnoses Pulmonary embolism I26.94 Pulmonary embolism type: multiple subsegmental (without acute cor pulmonale) Metastatic lung cancer (metastasis from lung to other site) C34.90 Respiratory failure with hypoxia J96.91 Acute encephalopathy G93.40 Constipation K59.00 Anemia D64.9 Anemia type: unspecified type HTN (hypertension) I10 Intraparenchymal hemorrhage of brain I61.9 Seizure R56.9 COPD with emphysema J43.9 Acid reflux K21.9 Time Spent (min) 35 (1) Pulmonary embolism Pulmonary embolism type: multiple subsegmental (without acute cor pulmonale) Qualified Code(s): I26.94 - Multiple subsegmental pulmonary emboli without acute cor pulmonale (2) Anemia Anemia type: unspecified type Qualified Code(s): D64.9 - Anemia, unspecified
[2022-02-02] MEDS: oxyCODONE HCL IR 5 MG TAB (IMMEDIATE RELEASE) PO PRN (18:51)
[2022-02-02] MEDS: PRAVASTATIN SOD 40 MG TAB PO SCH (20:18)
[2022-02-02 22:00] VITALS: TEMP 98.2
[2022-02-03] MEDS: CHECK fentaNYL PATCH PLACEMENT SCH ×2 (01:14→07:54)
[2022-02-03] MEDS: MULTIVITAMIN TAB PO SCH (07:51)
[2022-02-03] MEDS: RIVAROXABAN 15 MG TAB PO SCH (07:51)
[2022-02-03] MEDS: PANTOprazole 40 MG TAB PO SCH (07:51)
[2022-02-03] MEDS: levETIRAcetam 500 MG TAB PO SCH (07:51)
[2022-02-03] MEDS: SENNA 8.6 MG TAB PO SCH (07:51)
[2022-02-03] MEDS: cloNIDine HCL 0.1 MG TAB PO SCH (07:52)
[2022-02-03] MEDS: MAGNESIUM OXIDE 400 MG TAB PO SCH (07:52)
[2022-02-03] MEDS: amLODIPine BESYLATE 5 MG TAB PO SCH (07:52)
[2022-02-03] MEDS: ASPIRIN 81 MG ECTAB PO SCH (07:52)
[2022-02-03] MEDS: CYANOCOBALAMIN (B-12) 500 MCG TABLET PO SCH (07:52)
[2022-02-03] MEDS: UMECLIDINIUM BROMIDE 62.5MCG/BLISTER 7 PUFFS/INHALER INH SCH (07:53)
[2022-02-03] MEDS: bisacodyL 10 MG SUPP PR SCH (07:53)
[2022-02-03] MEDS: LIDOCAINE 5% 1 PATCH TD SCH (07:53)
[2022-02-03] MEDS: POLYETHYLENE (MIRALAX) 17 GM PACK PO SCH ×2 (07:53→13:18)
[2022-02-03] MEDS: TIMOLOL MALEATE 0.5% OP SOLN 5 ML BTL OP SCH (07:53)
[2022-02-03] MEDS: FLUTICASONE/VILANTEROL 200/25MCG 14 PUFFS/INHALER INH SCH (07:54)
[2022-02-03] MEDS: ACETAMINOPHEN 500 MG TAB PO SCH ×2 (07:54→13:18)
[2022-02-03] MEDS: DOCUSATE SODIUM 100 MG CAP PO SCH (07:54)
[2022-02-03] MEDS: BRIMONIDINE TARTRATE 0.2% 5ML OP SCH (07:54)
[2022-02-03 08:03] VITALS: O2SAT 95
[2022-02-03] MEDS: MoRPHine SULFATE 2 MG/ML CARP IV SCH (08:26)
[2022-02-03 13:12] VITALS: BP 110/48; PULSE 82
[2022-02-03] MEDS: oxyCODONE HCL IR 5 MG TAB (IMMEDIATE RELEASE) PO PRN (13:17)
--- NOTE | 2022-02-03 14:23 | Discharge Summary ---
Date of Service February 03, 2022 Admission HPI Per Admitting Provider Baron Bliss is an 86-year-old male with past medical history of metastatic lung cancer, history of left parietal intraparenchymal hemorrhage with possible seizure (February 2021), hypertension, CKD3, COPD, GERD, hyperlipidemia, PVD, BPH, gout who presented due to progressive upper back pain. Per patient and his 3 daughters in the room, the back pain has been going on for close to a year and has been progressively worsening. Over the past week, he has also noticed some mild shortness of breath. His daughters have also noticed that he has not had much of an appetite and has not been drinking much. He did also report some mild urinary discomfort, but no frequency or urgency. Additionally, he states he has not had a bowel movement in about 2 weeks. Daughters also state that he has had a developing sacral pressure ulcer and also mentioned concern for increasing confusion and the patient. He denies fever, chills, nausea, vomiting, abdominal pain, diarrhea, rash, chest pain, palpitations, coughing, headache, dizziness, weakness, numbness, neurologic deficits. In the ED, he had a CTA chest showing a pulmonary embolism in the lingular branch and one of the lower left lobe segmental branches, possible segmental pulmonary embolism in the right lower lobe as well (see stat rad report for further information). CTs of the abdomen/pelvis and head did not show any acute findings. He had a normal urinalysis. Blood work showed hemoglobin of 9.3, creatinine 1.27. He was hypoxic and required 5 L nasal cannula to maintain oxygenation around 93%. Received NSS 1 L bolus x1, morphine 2 mg IV x1, m orphine 4 mg IV x1. Principal Diagnosis Acute Pulmonary Embolism Discharge Exam The patient is awake, alert and oriented 3, well developed and well nourished, normocephalic and atraumatic, lying in bed and in no acute distress. HEENT--PERRL, EOMI, mucous membranes and oropharynx mildly dry Neck--supple. No JVD. No bruits. Thyroid normal, trachea midline, no adenopathy. Heart--normal S1 and S2. No murmurs, rubs or gallops. Lungs--clear bilaterally, no respiratory distress, no accessory muscle use. Abdomen--normal bowel sounds and soft. Mild epigastric and left sided abdominal pain Extremities--no cyanosis or clubbing. No edema. Dermatologic--normal skin turgor, normal color, no abnormal lymph nodes, no rash. Neurologic--cranial nerves II through XII grossly intact. Rheumatologic--normal range of motion. Psychiatric--normal affect. Discharge Data Allergies Allergy/AdvReac Type Severity Reaction Status Date / Time baclofen Allergy Unknown Unknown Verified 01/22/22 22:08 carvedilol Allergy Unknown Unknown Verified 01/22/22 22:08 clozapine Allergy Unknown unknown Verified 01/22/22 22:08 haloperidol Allergy Unknown unknown Verified 01/22/22 22:08 metoclopramide Allergy Unknown Unknown Verified 01/22/22 22:08 Phenothiazines Allergy Unknown unkonwn Verified 01/22/22 22:08 Consultations 01/22/22 21:54 ED Decision to Admit Stat 01/23/22 09:06 Consult Oncology Routine Ordered Studies 01/22/22 18:17 CT Abd and Pelvis [CT abd pelvis IV con only] Stat CT angio chest PE protocol Stat CT head/brain wo con Stat 01/23/22 10:46 US venous doppler LE BI Stat Hospital Course (1) Pulmonary embolism: Acute Pulmonary Embolism: Hypoxic in ER requiring 5LNC -> down to room air at this time. - CT Chest on 01/22 showed bilateral segmental and subsegmental PEs with mild right heart strain, as well as atelectasis. - Echo showed elevated RVSP to 30-40mmHg. - Initially started on heparin gtt -> transitioned to Xarelto after risk/benefit conversation with patient and family. - Xarelto 15mg BID x 21 days (to complete 02/14/22), then 20mg daily thereafter. - Bilateral LE Dopplers without evidence of DVT. - Continue to wean oxygen as tolerated. -> Doing well. No major issues at this point. 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 - Daily RT with Dr. Ndiaye to complete in 30 days. - Has been started on Chemo on 02/01 and also will continue radiation therapy - Continue fentanyl patch 25mcg q3days. - Tylenol 1000mg q8h scheduled. - Lidocaine patch to affected right rib area daily. - Oxycodone as needed for breakthrough pain, though he is using them much less often with increased dose of fentanyl (1-2 times daily as compared to 5-6 times daily without fentanyl patch). - PT/OT recommends rehab; CM assisting with placement that will enable him to have his RT and chemo treatments. (3) Respiratory failure with hypoxia: Baseline O2 requirement prior to admission was 2LNC with exertion. - Multifactorial secondary to PE, atelectasis from inability to take deep breaths due to pain, and baseline COPD with poor inhaler compliance. - No PNA on imaging. - Incentive spirometry. - Goal SpO2 88-92%. (4) Acute encephalopathy: - Resolved. - Delirium secondary to hospitalization, opiate use. - Had MRI brain last admission which was negative for metastases. - No focal neurological deficits indicating stroke. - No localizable source of infection. - BP normal. - Delirium precautions. Promote normal sleep/wake cycle; melatonin ordered as needed for sleep. - Can consider medication such as Remeron for sleep, mood, appetite if needed. (5) Constipation: Opioid-induced constipation. Had 2 BMs on 01/28. - Continue Dulcolax 10mg VA daily, Colace 100mg PO BID, Miralax TID scheduled, Senna PO daily. (6) Anemia: Normocytic anemia. Hgb stable, without evidence of bleeding. - Continue daily B12 supplement. (7) HTN (hypertension): History of intracranial hemorrhage. BP at goal at this time. - Continue amlodipine 5mg BID, clonidine 0.2mg PO BID. 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 - Continue Keppra 500mg BID. - Goal BP <160 systolic. (9) Seizure: With a history of such around the time of his first intracranial hemorrhage. - Continue home Keppra twice daily. (10) COPD with emphysema: History of, non-compliant with inhaler medications. - SpO2 goal of 88-92%. - Continue home Breo and Incruse; continue to educate on importance. (11) Acid reflux: With history of esophageal achalasia (last admit with food impaction requiring EGD w/ Dr Vyas). - Was supposed to have manometry as an outpatient, and so will need outpatient GI f/u. - Continue pantoprazole. Plan Code Status: FULL CODE FEN: Heart Healthy DVT ppx: Xarelto Total Time Total Time Spent Total Time Spent (In Minutes): 35 Discharge Plan Discharge Items Patient Disposition: Transfer [facility] Reason For Visit: BACK PAIN, SOB Discharge Diagnosis: Pulmonary Embolism Condition on Discharge: Good Health Concerns: lung cancer Activity: Resume your previous activity Non-emergency contact: Primary Care Provider and Oncologist Call non-emergency contact if: you have any medication questions Follow-up/Referrals: Kylah Good CRNP [Primary Care Provider] - Diet: Regular Addtl Attending Provider Instructions: please make appointment to follow up with your regular Oncologist and PCP Pending Studies at Discharge: No Stand-Alone Forms: My [facility] Skilled Items Patient informed of condition?: Yes DNR: No Discharge Level of Care: Skilled Communicable Disease: No Discharge Prognosis: Stable Lines: None Urinary Catheter: No Medications and DC Order Prescriptions: New Xarelto 15 mg Tablet 15 mg PO BID 11 Days Qty: 22 0RF Xarelto 20 mg tablet 20 mg PO DAILY Qty: 30 0RF Rx Instructions: must administer with evening meal Please start after 02/14/22 Continued multivitamin tablet 1 tab PO QAM Combigan 0.2-0.5 % drops 1 drops OP BID loratadine [Claritin] 10 mg tablet 10 mg PO DAILY PRN (Reason: Allergy Symptoms) acetaminophen 325 mg capsule 650 mg PO Q4H PRN (Reason: pain) Qty: 100 0RF allopurinol 100 mg tablet 100 mg PO QDD Qty: 90 3RF omeprazole 20 mg capsule,delayed release(DR/EC) 20 mg PO QAM Qty: 90 3RF pravastatin 80 mg tablet 80 mg PO HS Qty: 90 3RF levetiracetam [Keppra] 500 mg tablet 500 mg PO BID Qty: 60 5RF Metamucil 3.4 gram/5.4 gram powder 1 tbsp PO QAM PRN (Reason: Constipation) Rx Instructions: mix into at least 8 oz of water or juice before administering clonidine HCl 0.2 mg tablet See Rx Instructions PO HS Qty: 180 3RF Rx Instructions: 0.5 tablet in the AM and noon and 1 tablet in the PM PO at bedtime; fentanyl 12 mcg/hr patch 72 hour 12 mcg transdermal Q3D Qty: 5 0RF aspirin 81 mg Tablet,Delayed Release (Dr/Ec) 81 mg PO QAM Incruse Ellipta 62.5 mcg/actuation Blister With Device 1 inh inhalation DAILY 30 Days Qty: 30 0RF fluticasone furoate-vilanterol [Breo Ellipta] 200-25 mcg/dose Blister With Device 1 ea inhalation DAILY 30 Days Qty: 60 0RF cyanocobalamin (vitamin B-12) 1,000 mcg capsule 1,000 mcg PO DAILY Qty: 30 0RF (DME) Oxygen Home Liters Per Minute See Rx Instructions .Route Qty: 1 0RF Rx Instructions: As directed amlodipine [Norvasc] 5 mg tablet 5 mg PO DAILY Rx Instructions: 5 mg orally daily; oxycodone 10 mg tablet 10 mg PO Q4 PRN (Reason: pain) Rx Instructions: Take 1 tablet every 4 hours prn thoracic pain Discharge Orders: Discharge Order (Routine); Ordered 02/03/22 Ordered By: Sarabjit Andre Admission Data Admit Date/Time: 01/22/22 22:54 Attending Provider: Sarabjit Andre Admit Provider: Savage Otoole Primary Care Provider: Kylah Good Other Providers: [facility] ; Jia Barrientos at [facility] ; Estephania Valencia Aderonke ; Cassi Jorgensen Other Interventions: Discharge Summary Assessment (RN) Last Done: 02/03/22 13:10 Coding Level of Care Code D/C DAY MANAGEMENT >30 MINS Diagnoses Pulmonary embolism I26.94 Pulmonary embolism type: multiple subsegmental (without acute cor pulmonale) Metastatic lung cancer (metastasis from lung to other site) C34.90 Respiratory failure with hypoxia J96.91 Acute encephalopathy G93.40 Constipation K59.00 Anemia D64.9 Anemia type: unspecified type HTN (hypertension) I10 Intraparenchymal hemorrhage of brain I61.9 Seizure R56.9 COPD with emphysema J43.9 Acid reflux K21.9 Time Spent (min) 35
== END 2022-02-03 16:40 | DRG 180 ==
LOC: ED 17:44 → 2S 22:54 → SUATTDRO 22:54 → 2S 01-23 01:47 → 3N 01-29 20:43